=== PATIENT | female | born 1950 | race Caucasian/White ===

== ENCOUNTER 2017-02-01 18:45 | Inpatient (IN) | payer MEDICARE, BC, OTHER ==
[~2017-02-01] VITALS: Ht 154.9 cm; Wt 46.4 kg
[2017-02-01] MEDS ORDERED: LORazepam 1 MG TABLET PO ONE (19:15)
[2017-02-01 19:31] LABS: BASO # 0.1 x10^3/uL (0.0-0.2); BASO % 1 % (0-3); EOS # 0.2 x10^3/uL (0.0-0.7); EOS % 2 % (0-3); HEMATOCRIT 34.7 % (36.0-47.0); HEMOGLOBIN 11.9 g/dL (12.0-15.5); LYMPH # 2.1 x10^3/uL (1.0-4.8); LYMPH % 19 % (24-48); MEAN CORPUSCULAR HEMOGLOBIN 31 pg (25-35); MEAN CORPUSCULAR HGB CONC 34 g/dL (31-37); MEAN CORPUSCULAR VOLUME 91 fL (79-100); MONO # 0.9 x10^3/uL (0.0-1.1); MONO % 8 % (0-9); NEUT # 7.7 x10^3uL (1.8-7.7); NEUT % 70 % (31-73); PLATELET COUNT 352 x10^3/uL (140-400); RED CELL DISTRIBUTION WIDTH 14.8 % (11.5-14.5)
[2017-02-01 19:39] LABS: ALBUMIN 3.1 g/dL (3.4-5.0); ALBUMIN/GLOBULIN RATIO 1.1 (1.0-1.7); CREATININE 0.6 mg/dL (0.6-1.0); GFR 99.7; POTASSIUM 3.9 mmol/L (3.5-5.1); TOTAL BILIRUBIN 0.3 mg/dL (0.2-1.0); TOTAL PROTEIN 5.8 g/dL (6.4-8.2)
--- NOTE | 2017-02-01 19:43 | EKG ---
[address] [address] Test Date: 2017-02-01 Test Time: 19:18:43 Pat Name: VIV BALLESTEROS Department: Room: Gender: F Information Services Assistant: : 1950 Requested By: ELOISE MULLINS Order Number: [id number] Reading MD: Gpoal Renee Measurements Intervals [place] Rate: 67 P: 37 ID: [id number] QRS: -41 QRSD: 118 T: 21 QT: 434 QTc: 462 Interpretive Statements SINUS RHYTHM ABNORMAL LEFT AXIS DEVIATION LEFT ANTERIOR FASCICULAR BLOCK INCOMPLETE RIGHT BUNDLE BRANCH BLOCK QRS(T) CONTOUR ABNORMALITY CONSISTENT WITH SEPTAL INFARCT PROBABLY OLD Electronically Signed On 02-06-2017 10:32:49 CDT by Gopal Renee
[2017-02-01 19:51] LABS: BACTERIA,URINE FEW /HPF (0-FEW); BILIRUBIN,URINE NEG (NEG); CLARITY,URINE CLEAR; COLOR,URINE STRAW; GLUCOSE,URINE NEG (NEG); NITRITE,URINE NEG (NEG); SQUAMOUS EPITHELIAL CELL,UR FEW /LPF; UROBILINOGEN,URINE 0.2 mg/dL (0.2 mg/dL)
--- NOTE | 2017-02-01 20:21 | PHYS DOC ---
Past History Past Medical History: Anxiety, Bipolar, Dementia, Depression, High Cholesterol , Hypothyroid, Other Past Surgical History: Other Alcohol Use: None Drug Use: None Adult General Chief Complaint Chief Complaint: PSYCH EVALUATION HPI HPI Patient is a 66 year old F who presents for medical screening for psychiatric admission. Edwige was accompanied by her guardian. She had no concerns of pain. She denied shortness of breath, abdominal pain, nausea/vomiting, and rash. She states that she has had normal bowel movements and normal urination. Review of Systems Review of Systems Constitutional: Denies fever or chills [] Eyes: Denies change in visual acuity, redness, or eye pain [] HENT: Denies nasal congestion or sore throat [] Respiratory: Denies cough or shortness of breath [] Cardiovascular: No additional information not addressed in HPI [] GI: Denies abdominal pain, nausea, vomiting, bloody stools or diarrhea [] : Denies dysuria or hematuria [] Musculoskeletal: Denies back pain or joint pain [] Integument: Denies rash or skin lesions [] Neurologic: Denies headache, focal weakness or sensory changes [] Endocrine: Denies polyuria or polydipsia [] Family History Family History Noncontributory Current Medications Current Medications Current Medications Medications (Trade) Dose Ordered Sig/Deon Start Time Stop Time Status Last Admin Dose Admin Ceftriaxone Sodium (Rocephin Im) 1 gm 1X ONCE 02/01/17 20:30 02/01/17 20:31 Lorazepam (Ativan) 0.5 mg 1X ONCE 02/01/17 19:15 02/01/17 19:16 DC 02/01/17 19:14 0.5 MG Allergies Allergies Allergies Uncoded Allergies Type Severity Reaction Last Updated Verified TAPE Allergy Unknown 02/01/17 Physical Exam Physical Exam Constitutional: Well developed, well nourished, no acute distress, non-toxic appearance. [] HENT: Normocephalic, atraumatic, Eyes: PERRLA, EOMI, conjunctiva normal, no discharge. [] Neck: Normal range of motion, no tenderness, supple, no stridor. [] Cardiovascular:Heart rate regular rhythm, no murmur [] Lungs & Thorax: Bilateral breath sounds clear to auscultation [] Abdomen: Bowel sounds normal, soft, no tenderness, no masses, no pulsatile masses. [] Skin: Warm, dry, no erythema, no rash. [] Back: No tenderness, no CVA tenderness. [] Extremities: No tenderness, no cyanosis, no clubbing, ROM intact, no edema. [] Neurologic: normal motor function, normal sensory function, no focal deficits noted. [] Current Patient Data Vital Signs Vital Signs Date Time Temp Pulse Resp B/P (MAP) Pulse Ox O2 Delivery O2 Flow Rate FiO2 02/01/17 18:48 98.1 71 17 96 Room Air Lab Results Laboratory Tests Test 02/01/17 19:09 White Blood Count 11.0 x10^3/uL (4.0-11.0) Red Blood Count 3.80 x10^6/uL (3.50-5.40) Hemoglobin 11.9 g/dL (12.0-15.5) L Hematocrit 34.7 % (36.0-47.0) L Mean Corpuscular Volume 91 fL (79-100) Mean Corpuscular Hemoglobin 31 pg (25-35) Mean Corpuscular Hemoglobin Concent 34 g/dL (31-37) Red Cell Distribution Width 14.8 % (11.5-14.5) H Platelet Count 352 x10^3/uL (140-400) Neutrophils (%) (Auto) 70 % (31-73) Lymphocytes (%) (Auto) 19 % (24-48) L Monocytes (%) (Auto) 8 % (0-9) Eosinophils (%) (Auto) 2 % (0-3) Basophils (%) (Auto) 1 % (0-3) Neutrophils # (Auto) 7.7 x10^3uL (1.8-7.7) Lymphocytes # (Auto) 2.1 x10^3/uL (1.0-4.8) Monocytes # (Auto) 0.9 x10^3/uL (0.0-1.1) Eosinophils # (Auto) 0.2 x10^3/uL (0.0-0.7) Basophils # (Auto) 0.1 x10^3/uL (0.0-0.2) Urine Collection Type Unknown Urine Color Straw Urine Clarity Clear Urine pH 6.5 Urine Specific [place] 1.010 Urine Protein Neg (NEG-TRACE) Urine Glucose (UA) Neg mg/dL (NEG) Urine Ketones (Stick) Neg mg/dL (NEG) Urine Blood Trace (NEG) Urine Nitrite Neg (NEG) Urine Bilirubin Neg (NEG) Urine Urobilinogen Dipstick 0.2 mg/dL (0.2 mg/dL) Urine Leukocyte Esterase Trace (NEG) Urine RBC 1-2 /HPF (0-2) Urine WBC 5-10 /HPF (0-4) Urine Squamous Epithelial Cells Few /LPF Urine Bacteria Few /HPF (0-FEW) Sodium Level 137 mmol/L (136-145) Potassium Level 3.9 mmol/L (3.5-5.1) Chloride Level 104 mmol/L (98-107) Carbon Dioxide Level 28 mmol/L (21-32) Anion Gap 5 (6-14) L Blood Urea Nitrogen 13 mg/dL (7-20) Creatinine 0.6 mg/dL (0.6-1.0) Estimated GFR (Cockcroft-Gault) 99.7 BUN/Creatinine Ratio 22 (6-20) H Glucose Level 106 mg/dL (70-99) H Calcium Level 8.0 mg/dL (8.5-10.1) L Magnesium Level 2.0 mg/dL (1.8-2.4) Total Bilirubin 0.3 mg/dL (0.2-1.0) Aspartate Amino Transferase (AST) 41 U/L (15-37) H Alanine Aminotransferase (ALT) 56 U/L (14-59) Alkaline Phosphatase 106 U/L (46-116) Total Protein 5.8 g/dL (6.4-8.2) L Albumin 3.1 g/dL (3.4-5.0) L Albumin/Globulin Ratio 1.1 (1.0-1.7) EKG EKG Normal sinus rhythm, no STEMI, incomplete right bundle-branch block noted Course & Med Decision Making Course & Med Decision Making Pertinent Labs and Imaging studies reviewed. (See chart for details) The urine sample obtained was not a clean catch however given the presence of RBCs and WBCs it is possible urinary tract infection exists. She was given a single dose of IM Rocephin despite having no complaints. Dragon Disclaimer Dragon Disclaimer This chart was dictated in whole or in part using Voice Recognition software in a busy, high-work load, and often noisy Emergency Department environment. It may contain unintended and wholly unrecognized errors or omissions. Departure Departure: Impression: Primary Impression: Encounter for medical screening examination Disposition: 65 XFER TO PSYCH HOSP/UNIT Condition: STABLE Referrals: MAN ROME MD (PCP) ELOISE MULLINS MD Feb 01, 2017 20:21
[2017-02-01] MEDS ORDERED: cefTRIAXone IM 1 GM VIAL IM ONE (20:30)
[2017-02-01 21:54] VITALS: BP 127/77
[2017-02-01] MEDS ORDERED: LORA0.5T PO (23:02)
[2017-02-01] MEDS ORDERED: LEVO112T4 PO (23:02)
[2017-02-01] MEDS ORDERED: OLAN5TAB9 PO (23:02)
[2017-02-01] MEDS ORDERED: NAPR500T4 PO (23:02)
[2017-02-01] MEDS ORDERED: ATOR40TA59 PO (23:02)
[2017-02-01] MEDS ORDERED: QUET25TA5 PO (23:02)
[2017-02-01] MEDS ORDERED: SERT100T PO (23:02)
[2017-02-01] MEDS ORDERED: ALPR0.5T6 PO (23:02)
[2017-02-01] MEDS ORDERED: METHYL SALICYLATE/MENTHOL TOPICAL OINTMENT 29GM TUBE. TP PRN (23:15)
[2017-02-01] MEDS ORDERED: MAG HYDROX/AL HYDROX/SIMETH 30 ML ORAL.SUSP PO PRN (23:15)
[2017-02-02] MEDS ORDERED: OLANZapine 5 MG TABLET PO ONE (00:30)
[2017-02-02] MEDS: LORazepam 0.5 MG TABLET PO PRN ×3 (02:40→14:57)
[2017-02-02 05:51] VITALS: BP 139/72
[2017-02-02] MEDS: SERTRALINE 100 MG TABLET. PO SCH (09:12)
[2017-02-02] MEDS: QUEtiapine 25 MG TABLET. PO SCH ×2 (09:13→19:41)
[2017-02-02] MEDS: ALPRAZolam 0.5 MG TABLET PO SCH ×2 (09:13→19:43)
[2017-02-02] MEDS: NAPROXEN 500 MG TABLET PO SCH ×2 (09:15→19:40)
[2017-02-02] MEDS: LEVOTHYROXINE 112 MCG TABLET PO SCH (09:38)
[2017-02-02] MEDS: MAGNESIUM HYDROXIDE 2,400 MG/30 ML ORAL.SUSP. PO PRN (14:57)
[2017-02-02 16:06] LABS: THYROID STIM HORMONE (TSH) 1.812 uIU/mL (0.358-3.740)
[2017-02-02 16:23] VITALS: BP 110/72
[2017-02-02 19:13] LABS: T3 TOTAL 53 ng/dL (71-180); THYROXINE 6.4 ug/dL (4.5-12.0)
[2017-02-02] MEDS: ATORVASTATIN CALCIUM 20 MG TABLET PO SCH (19:43)
[2017-02-02] MEDS: MIRTAZAPINE 7.5 MG TABLET. PO SCH (19:43)
[2017-02-02] MEDS: DOCUSATE SODIUM 100 MG CAPSULE PO SCH (19:43)
[2017-02-02] MEDS: OLANZapine 5 MG TABLET PO SCH (19:43)
[2017-02-02 21:11] LABS: HEMOGLOBIN A1C 5.1 % (4.8-5.6)
--- NOTE | 2017-02-02 21:32 | PDOC ---
Exam Jeanmarie Demential Exam: Jeanmarie Note: Please also refer to the separate dictated note~for this date of service dictated separately.~Patient seen individually. Discussed the patient with Nursing staff reviewed the chart.~Reviewed interim history and current functioning. Reviewed vital signs,~Labs/ Radiology~and current medications noted below. Continue current treatment with the changes noted in the dictated addendum note Assessment: Vital Signs: Vital Signs Date Time Temp Pulse Resp B/P (MAP) Pulse Ox O2 Delivery O2 Flow Rate FiO2 02/02/17 16:23 98.6 80 16 110/72 (85) 95 02/01/17 18:48 Room Air I&O Intake and Output 02/03/17 07:00 Intake Total 720 ml Balance 720 ml Intake Oral 720 ml Current Medications: Meds: Current Medications Lorazepam (Ativan) 0.5 mg 1X ONCE PO Last administered on 02/01/17 19:14; Start 02/01/17 at 19:15; Stop 02/01/17 at 19:16; Status DC Ceftriaxone Sodium (Rocephin Im) 1 gm 1X ONCE IM Last administered on 20:45; Start 02/01/17 at 20:30; Stop 02/01/17 at 20:31; Status DC Acetaminophen (Tylenol) 650 mg PRN Q6HRS PRN PO MILD PAIN / TEMP; Start at 23:15 Multi-Ingredient Ointment (Analgesic [place]) 1 rosita PRN QID PRN TP MUSCLE PAIN; Start 02/01/17 at 23:15 Al Hydroxide/Mg Hydroxide (Mylanta Plus Xs) 15 ml PRN AFTMEALHC PRN PO DYSPEPSIA; Start 02/01/17 at 23:15 Magnesium Hydroxide (Milk Of Magnesia) 2,400 mg PRN QHS PRN PO CONSTIPATION Last administered on 02/02/17 14:57; Start 02/01/17 at 23:15 Olanzapine (ZyPREXA) 5 mg HS PO Last administered on 02/02/17 19:43; Start at 21:00 Quetiapine Fumarate (SEROquel) 25 mg BID PO Last administered on 02/02/17 19: 41; Start 02/02/17 at 09:00 Sertraline HCl (Zoloft) 100 mg DAILY PO Last administered on 02/02/17 09:12; Start 02/02/17 at 09:00 Olanzapine (ZyPREXA) 5 mg 1X ONCE PO Last administered on 02/02/17 00:27; Start 02/02/17 at 00:30; Stop 02/02/17 at 00:31; Status DC Alprazolam (Xanax) 0.5 mg BID PO Last administered on 02/02/17 19:43; Start at 09:00 Lorazepam (Ativan) 0.5 mg PRN Q4HRS PRN PO ANXIETY / AGITATION Last administered on 02/02/17 14:57; Start 02/02/17 at 00:15; Stop 02/02/17 at 15:59 ; Status DC Levothyroxine Sodium (Synthroid) 112 mcg DAILY06 PO ; Start 02/02/17 at 10:00 Naproxen (Naprosyn) 500 mg BID PO Last administered on 02/02/17 19:40; Start 02/02/17 at 09:00 Atorvastatin Calcium (Lipitor) 40 mg QHS PO Last administered on 02/02/17 19: 43; Start 02/02/17 at 21:00 Mirtazapine (Remeron) 7.5 mg QHS PO Last administered on 02/02/17 19:43; Start 02/02/17 at 21:00 Olanzapine (ZyPREXA ZYDIS) 2.5 mg PRN Q2HR PRN PO PSYCHOSIS; Start 02/02/17 at 15:45 Alprazolam (Xanax) 0.25 mg PRN Q2HR PRN PO ANXIETY / AGITATION; Start 02/02/17 at 15:45 Docusate Sodium (Colace) 100 mg BID PO Last administered on 02/02/17 19:43; Start 02/02/17 at 21:00 Polyethylene Glycol (miraLAX) 17 gm DAILY PO ; Start 02/03/17 at 09:00 Active Scripts Active Reported Atorvastatin Calcium 40 Mg Tablet 40 Mg PO QHS Naproxen 500 Mg Tablet 500 Mg PO BID Lorazepam 0.5 Mg Tablet 0.5 Mg PO PRN Q4HRS PRN Seroquel (Quetiapine Fumarate) 25 Mg Tablet 25 Mg PO BID Zoloft (Sertraline Hcl) 100 Mg Tablet 100 Mg PO DAILY Levothyroxine Sodium 112 Mcg Tablet 112 Mcg PO DAILYAC Olanzapine 5 Mg Tablet 5 Mg PO HS Alprazolam 0.5 Mg Tablet 0.5 Mg PO BID Diagnosis: Problems: (1) Anxiety disorder (2) Bipolar 1 disorder, mixed, moderate (3) Dementia in Alzheimer's disease with delusions (4) Dementia in Alzheimer's disease with depression (5) Dementia, vascular, with depression (6) Dementia, vascular, with delusions (7) Impulse control disorder ELEANOR BILLS MD Feb 02, 2017 21:32
[2017-02-03 05:44] VITALS: BP 120/67
[2017-02-03] MEDS: LEVOTHYROXINE 112 MCG TABLET PO SCH (05:56)
[2017-02-03] MEDS: NAPROXEN 500 MG TABLET PO SCH ×2 (08:02→19:51)
[2017-02-03] MEDS: SERTRALINE 100 MG TABLET. PO SCH (08:02)
[2017-02-03] MEDS: QUEtiapine 25 MG TABLET. PO SCH ×2 (08:02→19:51)
[2017-02-03] MEDS: DOCUSATE SODIUM 100 MG CAPSULE PO SCH ×2 (08:02→19:51)
[2017-02-03] MEDS: ALPRAZolam 0.5 MG TABLET PO SCH ×2 (08:14→19:52)
[2017-02-03] MEDS: POLYETHYLENE GLYCOL 3350 17 GM PACKET. PO SCH (08:14)
--- NOTE | 2017-02-03 10:19 | CONS ---
DATE OF CONSULTATION: REASON FOR CONSULTATION: Medical management. HISTORY OF PRESENT ILLNESS: The patient is a 66-year-old female patient, resident at [facility], on account of increased yelling, screaming, paranoid about being alone, increased agitation, crying, depressed and is severely anxious, all this in the background of dementia with behavioral disorder. She was admitted to this unit for inpatient psychiatric stabilization. On questioning her, the only complaint she offered was that she is constipated. PAST MEDICAL HISTORY: Significant for hyperlipidemia, hypothyroidism, malnutrition, weakness. PAST PSYCHIATRIC HISTORY: Significant for dementia, bipolar, mixed; anxiety and depression disorder. PAST SURGICAL HISTORY: Significant for bilateral cataract extraction, tonsillectomy, appendectomy and left total knee arthroplasty. ALLERGIES: She is allergic to ADHESIVE TAPE. MEDICATIONS: She is currently on the following medication: Alprazolam 0.5 mg p.o. b.i.d., atorvastatin calcium 40 mg at bedtime, levothyroxine sodium 112 mcg once a day, lorazepam 0.5 mg every 4 hours as needed, naproxen 500 mg twice a day, olanzapine 5 mg at bedtime, Seroquel 25 mg p.o. b.i.d. and sertraline for Zoloft 100 mg p.o. daily. FAMILY HISTORY: Unremarkable. SOCIAL HISTORY: She is , resides at the [facility]. She has 1 daughter. She used to be a smoker. She quit more than 10 years ago. She used to work for insurance. PHYSICAL EXAMINATION: GENERAL: On examining her, she was resting slightly propped up in bed, in no apparent respiratory distress. She was slightly pale, but no jaundice, cyanosis, ____ thyromegaly. No jugular venous distention. No limb edema. VITAL SIGNS: Her heart rate was 74, blood pressure was 139/72, temperature was 97.8, respiratory rate 22, and oxygen saturation was 94%. HEENT: Showed normocephalic, atraumatic. NECK: Supple. HEART: Showed normal first and second heart sounds with no gallop, rub or murmur. CHEST: Clear to auscultation. No crepitation or rhonchi. ABDOMEN: Distended, soft, nontender. No guarding or rigidity. No organomegaly. Hernial orifices intact. Bowel sounds normal. NEUROLOGIC: She is awake, alert, oriented to self. All her cranial nerves intact. EXTREMITIES: She moves extremities without difficulty, although she is mostly bed bound and chair bound. She managed to transfer from chair to bed and vice versa. LABORATORY DATA: Showed a white cell count of 11,000, hemoglobin 11.9, hematocrit 34.7, MCV 91, and platelet count 352,000 with normal manual differential. Her chemistry showed a serum sodium of 137, potassium 3.9, chloride 104, bicarbonate 28, anion gap of 5, BUN 13, creatinine 0.6, estimated GFR was 99 mL per minute. Her glucose was 106, calcium was 8, magnesium 2. Total bilirubin, AST, ALT, alkaline phosphatase were normal. Total protein was 5.8, albumin 3.1. Her urinalysis showed the urine was clear, straw-colored with a pH of 6.5, specific gravity of 1.010. The urine was negative for protein, glucose, ketones, trace of blood, negative for nitrite and trace of leukocyte esterase, with 1-2 rbc's, 5-10 wbc's, very few bacteria. IMPRESSION: In summary, this is a 66-year-old female patient who was admitted on account of increased yelling, screaming, paranoid about being alone. She has also increased agitation, crying, depressed and severely anxious, all this in a background of dementia with behavioral disorder. She has medical problems consists of hyperlipidemia, hypothyroidism and malnutrition. Her serum albumin is only 3.1 gram/dL. She has also mild normochromic normocytic anemia. PLAN: My plan is to continue with all her medication. I will review all the labs that are still pending at the time of this dictation and make any necessary recommendation. Thank you, Dr. Hernandez, for allowing me to participate in the care of this patient. TATIANNA COLE MD DR: JUVE/meli JOB#: [id number] / [id number]
[2017-02-03] MEDS: ALPRAZolam 0.25 MG TABLET PO PRN (15:41)
--- NOTE | 2017-02-03 15:45 | HP ---
ADMIT DATE: 02/02/2017 This is late entry, date of service 02/02, covers elements not covered in my initial note of 02/02. The patient was seen individually evening of 02/02 for this evaluation. I had previously discussed with nursing staff on several occasions prior to the patient's admission to gather clinical information from the snf, make a decision on inpatient hospitalization. I had also been called earlier in the day on 02/02 by nursing staff. The patient was loud, disruptive, psychotic, extremely unmanageable, dangerous in her behaviors on the unit and we had added Zyprexa p.r.n. The patient was on scheduled Xanax and p.r.n. Ativan was changed to Xanax as well. IDENTIFYING DATA: The patient is a 66-year-old female referred to us from [facility] and [facility] by Dr. Neville, her primary care physician at [facility] and [facility], on account of worsening yelling, screaming, being paranoid about being alone, increasing agitation, crying spells, appearing depressed severely anxious, extremely confused within the context of her major neurocognitive disorder, Alzheimer vascular with delusions and history of bipolar disorder mixed The patient has failed outpatient psychiatric interventions, behavior is deemed dangerous, unmanageable, out of control. Referred for inpatient psychiatric stabilization. CHIEF COMPLAINT: "I don't know anything. I need to get out of here." Shortly after this, the patient was yelling, screaming loud, disruptive, paranoid, psychotic on the unit, extremely unmanageable. HISTORY OF PRESENT ILLNESS: The patient has a history of worsening confusion, memory deficits and a past history of bipolar disorder. She states she used to see a psychiatrist in the past for bipolar disorder, but does not remember the name of the psychiatrist. Symptoms are worsened for about 2 weeks. She has had sleep and appetite changes. No active suicidal or homicidal ideation. PAST PSYCHIATRIC HISTORY: As above. PAST MEDICAL HISTORY: Positive for a UTI, treated on Rocephin in the ER. Currently being treated per Dr. Merino. She does have a history of malnutrition, hypothyroidism, hyperlipidemia, muscle weakness, left knee surgery, , polyosteoarthritis. Accu-Cheks, none. DIET: Regular, soft. She is compliant with whole medications. CODE STATUS: Full code. ALLERGIES: TAPE. FAMILY HISTORY: Noncontributory. SOCIAL HISTORY: The patient resides at the above snf. No history of alcohol or drug abuse, physical, sexual or elder abuse history is noted. She is not known to be a perpetrator. CURRENT PSYCHOTROPICS: Xanax 0.5 mg b.i.d. and she was on Ativan p.r.n. and that is being changed to Xanax p.r.n. to avoid duplication of benzodiazepines. She is on Zyprexa 5 mg at bedtime, Zoloft 100 mg a day, Seroquel 25 b.i.d. Again a duplication of atypical, which we will have to contend with and simplify during this hospitalization. The patient is on Remeron 7.5 at bedtime, Zyprexa Zydis p.r.n. REACTION TO HOSPITALIZATION: The patient oblivious of this ASSETS: The patient is supportive, living at the above facility. MENTAL STATUS EXAMINATION: The patient was seen individually evening of 02/02. She is yelling, screaming loud, paranoid, psychotic in a wheelchair. Insight, judgment, recent and remote memory, attention, concentration, fund of knowledge poor, consistent with her diagnosis. The patient is quite psychotic. Slept just 3 hours previous evening. LABORATORY DATA: Reviewed. IMPRESSION: Major neurocognitive disorder; Alzheimer, vascular with depression, delusion, behavioral disturbance; anxiety disorder, unspecified; impulse control disorder, unspecified; bipolar 1 disorder, mixed with psychotic features; current urinary tract infection. Rest diagnosis as noted above. PLAN: Admit to the geropsychiatry unit at [facility]. I will see the patient daily individually from a psychiatric standpoint. Medical followup per Dr. Du/Dr. Merino. Continue current medications with the changes noted above. We will observe baseline, adjust further as clinically indicated. If paranoia, mood lability, agitation, aggression persist despite resolution of UTI, we may add Depakote as a mood stabilizer. MAN Aden BILLS MD DR: JAIME/meli JOB#: [id number] / [id number]
[2017-02-03 16:34] VITALS: BP 115/61
[2017-02-03] MEDS: MIRTAZAPINE 7.5 MG TABLET. PO SCH (19:51)
[2017-02-03] MEDS: OLANZapine 5 MG TABLET PO SCH (19:51)
[2017-02-03] MEDS: ATORVASTATIN CALCIUM 20 MG TABLET PO SCH (19:51)
--- NOTE | 2017-02-03 20:24 | PDOC ---
Exam Jeanmarie Demential Exam: Jeanmarie Note: Please also refer to the separate dictated note~for this date of service dictated separately.~Patient seen individually. Discussed the patient with Nursing staff reviewed the chart.~Reviewed interim history and current functioning. Reviewed vital signs,~Labs/ Radiology~and current medications noted below. Continue current treatment with the changes noted in the dictated addendum note Assessment: Vital Signs: Vital Signs Date Time Temp Pulse Resp B/P (MAP) Pulse Ox O2 Delivery O2 Flow Rate FiO2 02/03/17 16:34 97.5 80 18 115/61 (79) 95 Room Air I&O Intake and Output 02/04/17 07:00 Intake Total 1260 ml Balance 1260 ml Intake Oral 1260 ml # Voids 1 # Bowel Movements 2 Current Medications: Meds: Current Medications Lorazepam (Ativan) 0.5 mg 1X ONCE PO Last administered on 02/01/17 19:14; Start 02/01/17 at 19:15; Stop 02/01/17 at 19:16; Status DC Ceftriaxone Sodium (Rocephin Im) 1 gm 1X ONCE IM Last administered on 20:45; Start 02/01/17 at 20:30; Stop 02/01/17 at 20:31; Status DC Acetaminophen (Tylenol) 650 mg PRN Q6HRS PRN PO MILD PAIN / TEMP; Start at 23:15 Multi-Ingredient Ointment (Analgesic [place]) 1 rosita PRN QID PRN TP MUSCLE PAIN; Start 02/01/17 at 23:15 Al Hydroxide/Mg Hydroxide (Mylanta Plus Xs) 15 ml PRN AFTMEALHC PRN PO DYSPEPSIA; Start 02/01/17 at 23:15 Magnesium Hydroxide (Milk Of Magnesia) 2,400 mg PRN QHS PRN PO CONSTIPATION Last administered on 02/02/17 14:57; Start 02/01/17 at 23:15 Olanzapine (ZyPREXA) 5 mg HS PO Last administered on 02/03/17 19:51; Start at 21:00 Quetiapine Fumarate (SEROquel) 25 mg BID PO Last administered on 02/03/17 19: 51; Start 02/02/17 at 09:00 Sertraline HCl (Zoloft) 100 mg DAILY PO Last administered on 02/03/17 08:02; Start 02/02/17 at 09:00 Olanzapine (ZyPREXA) 5 mg 1X ONCE PO Last administered on 02/02/17 00:27; Start 02/02/17 at 00:30; Stop 02/02/17 at 00:31; Status DC Alprazolam (Xanax) 0.5 mg BID PO Last administered on 02/03/17 19:52; Start at 09:00 Lorazepam (Ativan) 0.5 mg PRN Q4HRS PRN PO ANXIETY / AGITATION Last administered on 02/02/17 14:57; Start 02/02/17 at 00:15; Stop 02/02/17 at 15:59 ; Status DC Levothyroxine Sodium (Synthroid) 112 mcg DAILY06 PO Last administered on 05:56; Start 02/02/17 at 10:00 Naproxen (Naprosyn) 500 mg BID PO Last administered on 02/03/17 19:51; Start 02/02/17 at 09:00 Atorvastatin Calcium (Lipitor) 40 mg QHS PO Last administered on 02/03/17 19: 51; Start 02/02/17 at 21:00 Mirtazapine (Remeron) 7.5 mg QHS PO Last administered on 02/03/17 19:51; Start 02/02/17 at 21:00 Olanzapine (ZyPREXA ZYDIS) 2.5 mg PRN Q2HR PRN PO PSYCHOSIS Last administered on 02/03/17 15:41; Start 02/02/17 at 15:45 Alprazolam (Xanax) 0.25 mg PRN Q2HR PRN PO ANXIETY / AGITATION Last administered on 02/03/17 15:41; Start 02/02/17 at 15:45 Docusate Sodium (Colace) 100 mg BID PO Last administered on 02/03/17 19:51; Start 02/02/17 at 21:00 Polyethylene Glycol (miraLAX) 17 gm DAILY PO Last administered on 02/03/17 08: 14; Start 02/03/17 at 09:00 Vitamin D (Vitamin D3) 50,000 unit WEEKLY PO ; Start 02/10/17 at 09:00 Divalproex Sodium (Depakote Sprinkles) 125 mg TID@0900,1300,1700 PO ; Start at 09:00 Active Scripts Active Reported Atorvastatin Calcium 40 Mg Tablet 40 Mg PO QHS Naproxen 500 Mg Tablet 500 Mg PO BID Lorazepam 0.5 Mg Tablet 0.5 Mg PO PRN Q4HRS PRN Seroquel (Quetiapine Fumarate) 25 Mg Tablet 25 Mg PO BID Zoloft (Sertraline Hcl) 100 Mg Tablet 100 Mg PO DAILY Levothyroxine Sodium 112 Mcg Tablet 112 Mcg PO DAILYAC Olanzapine 5 Mg Tablet 5 Mg PO HS Alprazolam 0.5 Mg Tablet 0.5 Mg PO BID Diagnosis: Problems: (1) Anxiety disorder (2) Bipolar 1 disorder, mixed, moderate (3) Dementia in Alzheimer's disease with delusions (4) Dementia, vascular, with delusions (5) Dementia, vascular, with depression (6) Dementia in Alzheimer's disease with depression (7) Impulse control disorder ELEANOR BILLS MD Feb 03, 2017 20:24
[2017-02-04 06:08] VITALS: BP 105/64
[2017-02-04] MEDS: LEVOTHYROXINE 112 MCG TABLET PO SCH (06:24)
[2017-02-04] MEDS: POLYETHYLENE GLYCOL 3350 17 GM PACKET. PO SCH (08:03)
[2017-02-04] MEDS: NAPROXEN 500 MG TABLET PO SCH ×2 (08:03→19:53)
[2017-02-04] MEDS: QUEtiapine 25 MG TABLET. PO SCH ×2 (08:04→19:54)
[2017-02-04] MEDS: SERTRALINE 100 MG TABLET. PO SCH (08:04)
[2017-02-04] MEDS: ALPRAZolam 0.5 MG TABLET PO SCH ×2 (08:04→19:54)
[2017-02-04] MEDS: DOCUSATE SODIUM 100 MG CAPSULE PO SCH ×2 (08:04→19:54)
[2017-02-04] MEDS: DIVALPROEX 125 MG CAP.SPRINK PO SCH ×3 (08:06→16:20)
[2017-02-04 15:44] VITALS: BP 145/71
[2017-02-04] MEDS: MIRTAZAPINE 7.5 MG TABLET. PO SCH (19:54)
[2017-02-04] MEDS: OLANZapine 5 MG TABLET PO SCH (19:54)
[2017-02-04] MEDS: ATORVASTATIN CALCIUM 20 MG TABLET PO SCH (19:54)
--- NOTE | 2017-02-04 23:00 | PDOC ---
Exam Jeanmarie Demential Exam: Jeanmarie Note: Please also refer to the separate dictated note~for this date of service dictated separately.~Patient seen individually. Discussed the patient with Nursing staff reviewed the chart.~Reviewed interim history and current functioning. Reviewed vital signs,~Labs/ Radiology~and current medications noted below. Continue current treatment with the changes noted in the dictated addendum note Assessment: Vital Signs: Vital Signs Date Time Temp Pulse Resp B/P (MAP) Pulse Ox O2 Delivery O2 Flow Rate FiO2 02/04/17 15:44 99.2 85 18 145/71 (95) 94 02/03/17 16:34 Room Air I&O Intake and Output 02/05/17 07:00 Intake Total 960 ml Balance 960 ml Intake Oral 960 ml # Bowel Movements 1 Current Medications: Meds: Current Medications Lorazepam (Ativan) 0.5 mg 1X ONCE PO Last administered on 02/01/17 19:14; Start 02/01/17 at 19:15; Stop 02/01/17 at 19:16; Status DC Ceftriaxone Sodium (Rocephin Im) 1 gm 1X ONCE IM Last administered on 20:45; Start 02/01/17 at 20:30; Stop 02/01/17 at 20:31; Status DC Acetaminophen (Tylenol) 650 mg PRN Q6HRS PRN PO MILD PAIN / TEMP; Start at 23:15 Multi-Ingredient Ointment (Analgesic [place]) 1 rosita PRN QID PRN TP MUSCLE PAIN; Start 02/01/17 at 23:15 Al Hydroxide/Mg Hydroxide (Mylanta Plus Xs) 15 ml PRN AFTMEALHC PRN PO DYSPEPSIA; Start 02/01/17 at 23:15 Magnesium Hydroxide (Milk Of Magnesia) 2,400 mg PRN QHS PRN PO CONSTIPATION Last administered on 02/02/17 14:57; Start 02/01/17 at 23:15 Olanzapine (ZyPREXA) 5 mg HS PO Last administered on 02/04/17 19:54; Start at 21:00 Quetiapine Fumarate (SEROquel) 25 mg BID PO Last administered on 02/04/17 19: 54; Start 02/02/17 at 09:00 Sertraline HCl (Zoloft) 100 mg DAILY PO Last administered on 02/04/17 08:04; Start 02/02/17 at 09:00 Olanzapine (ZyPREXA) 5 mg 1X ONCE PO Last administered on 02/02/17 00:27; Start 02/02/17 at 00:30; Stop 02/02/17 at 00:31; Status DC Alprazolam (Xanax) 0.5 mg BID PO Last administered on 02/04/17 19:54; Start at 09:00 Lorazepam (Ativan) 0.5 mg PRN Q4HRS PRN PO ANXIETY / AGITATION Last administered on 02/02/17 14:57; Start 02/02/17 at 00:15; Stop 02/02/17 at 15:59 ; Status DC Levothyroxine Sodium (Synthroid) 112 mcg DAILY06 PO Last administered on 06:24; Start 02/02/17 at 10:00 Naproxen (Naprosyn) 500 mg BID PO Last administered on 02/04/17 19:53; Start 02/02/17 at 09:00 Atorvastatin Calcium (Lipitor) 40 mg QHS PO Last administered on 02/04/17 19: 54; Start 02/02/17 at 21:00 Mirtazapine (Remeron) 7.5 mg QHS PO Last administered on 02/04/17 19:54; Start 02/02/17 at 21:00 Olanzapine (ZyPREXA ZYDIS) 2.5 mg PRN Q2HR PRN PO PSYCHOSIS Last administered on 02/03/17 15:41; Start 02/02/17 at 15:45 Alprazolam (Xanax) 0.25 mg PRN Q2HR PRN PO ANXIETY / AGITATION Last administered on 02/03/17 15:41; Start 02/02/17 at 15:45 Docusate Sodium (Colace) 100 mg BID PO Last administered on 02/04/17 19:54; Start 02/02/17 at 21:00 Polyethylene Glycol (miraLAX) 17 gm DAILY PO Last administered on 02/04/17 08: 03; Start 02/03/17 at 09:00 Vitamin D (Vitamin D3) 50,000 unit WEEKLY PO ; Start 02/10/17 at 09:00 Divalproex Sodium (Depakote Sprinkles) 125 mg TID@0900,1300,1700 PO Last administered on 02/04/17t 16:20; Start 02/04/17 at 09:00 Active Scripts Active Reported Atorvastatin Calcium 40 Mg Tablet 40 Mg PO QHS Naproxen 500 Mg Tablet 500 Mg PO BID Lorazepam 0.5 Mg Tablet 0.5 Mg PO PRN Q4HRS PRN Seroquel (Quetiapine Fumarate) 25 Mg Tablet 25 Mg PO BID Zoloft (Sertraline Hcl) 100 Mg Tablet 100 Mg PO DAILY Levothyroxine Sodium 112 Mcg Tablet 112 Mcg PO DAILYAC Olanzapine 5 Mg Tablet 5 Mg PO HS Alprazolam 0.5 Mg Tablet 0.5 Mg PO BID Diagnosis: Problems: (1) Impulse control disorder (2) Dementia, vascular, with delusions (3) Dementia, vascular, with depression (4) Dementia in Alzheimer's disease with depression (5) Dementia in Alzheimer's disease with delusions (6) Bipolar 1 disorder, mixed, moderate (7) Anxiety disorder ELEANOR BILLS MD Feb 04, 2017 23:00
[2017-02-05] MEDS: LEVOTHYROXINE 112 MCG TABLET PO SCH (05:47)
[2017-02-05 05:56] VITALS: BP 143/83
--- NOTE | 2017-02-05 06:20 | PN ---
DATE: 02/03/2017 This late entry 02/03/2017 covers elements not covered in my initial note of 02/03/2017. SUBJECTIVE: I met with the patient in the evening of 02/03/2017. The patient slept 7-1/4 hours previous evening. She has had a very difficult day, yelling, screaming loud, disruptive, agitated with marked mood lability. She has received Zyprexa and Xanax. Staff had called me earlier in the day of 02/03/2017. We have adjusted interventions to compensate for this. REVIEW OF SYSTEMS: Ambulation impaired, in wheelchair. No CV, , pulmonary, eye, ENT system symptoms on review. Reliability poor. MENTAL STATUS EXAM: Oriented to herself. Insight, judgment, recent and remote memory, attention, concentration, fund of knowledge poor, consistent with her diagnosis mentioned in my initial note. PLAN: Start Depakote Sprinkles 125 mg 3 times a day. Check CBC, CMP, valproic acid level in 3 days for her mood lability consistent with bipolar disorder in the context of her dementia. I have reviewed the rest of her psychotropics mentioned in my initial note, reviewed drug interactions. Risk/benefit ratio favors no further change for now. ELEANOR BILLS MD DR: JAIME/meli JOB#: [id number] / [id number]
[2017-02-05] MEDS: DOCUSATE SODIUM 100 MG CAPSULE PO SCH ×2 (07:31→19:21)
[2017-02-05] MEDS: POLYETHYLENE GLYCOL 3350 17 GM PACKET. PO SCH (07:31)
[2017-02-05] MEDS: SERTRALINE 100 MG TABLET. PO SCH (07:32)
[2017-02-05] MEDS: NAPROXEN 500 MG TABLET PO SCH ×2 (07:32→19:21)
[2017-02-05] MEDS: QUEtiapine 25 MG TABLET. PO SCH ×2 (07:32→19:21)
[2017-02-05] MEDS: ALPRAZolam 0.5 MG TABLET PO SCH ×2 (07:33→19:21)
[2017-02-05] MEDS: DIVALPROEX 125 MG CAP.SPRINK PO SCH ×3 (07:33→17:26)
[2017-02-05 16:04] VITALS: BP 121/72
[2017-02-05] MEDS: OLANZapine 5 MG TABLET PO SCH (19:21)
[2017-02-05] MEDS: ATORVASTATIN CALCIUM 20 MG TABLET PO SCH (19:21)
[2017-02-05] MEDS: MIRTAZAPINE 7.5 MG TABLET. PO SCH (19:21)
--- NOTE | 2017-02-05 19:56 | PDOC ---
Exam Jeanmarie Demential Exam: Jeanmarie Note: Please also refer to the separate dictated note~for this date of service dictated separately.~Patient seen individually. Discussed the patient with Nursing staff reviewed the chart.~Reviewed interim history and current functioning. Reviewed vital signs,~Labs/ Radiology~and current medications noted below. Continue current treatment with the changes noted in the dictated addendum note Assessment: Vital Signs: Vital Signs Date Time Temp Pulse Resp B/P (MAP) Pulse Ox O2 Delivery O2 Flow Rate FiO2 02/05/17 16:04 98.0 80 20 121/72 (88) 98 02/03/17 16:34 Room Air I&O Intake and Output 02/06/17 07:00 Intake Total 1020 ml Balance 1020 ml Intake Oral 1020 ml Current Medications: Meds: Current Medications Lorazepam (Ativan) 0.5 mg 1X ONCE PO Last administered on 02/01/17 19:14; Start 02/01/17 at 19:15; Stop 02/01/17 at 19:16; Status DC Ceftriaxone Sodium (Rocephin Im) 1 gm 1X ONCE IM Last administered on 20:45; Start 02/01/17 at 20:30; Stop 02/01/17 at 20:31; Status DC Acetaminophen (Tylenol) 650 mg PRN Q6HRS PRN PO MILD PAIN / TEMP; Start at 23:15 Multi-Ingredient Ointment (Analgesic [place]) 1 rosita PRN QID PRN TP MUSCLE PAIN; Start 02/01/17 at 23:15 Al Hydroxide/Mg Hydroxide (Mylanta Plus Xs) 15 ml PRN AFTMEALHC PRN PO DYSPEPSIA; Start 02/01/17 at 23:15 Magnesium Hydroxide (Milk Of Magnesia) 2,400 mg PRN QHS PRN PO CONSTIPATION Last administered on 02/02/17 14:57; Start 02/01/17 at 23:15 Olanzapine (ZyPREXA) 5 mg HS PO Last administered on 02/05/17 19:21; Start at 21:00 Quetiapine Fumarate (SEROquel) 25 mg BID PO Last administered on 02/05/17 19: 21; Start 02/02/17 at 09:00 Sertraline HCl (Zoloft) 100 mg DAILY PO Last administered on 02/05/17 07:32; Start 02/02/17 at 09:00 Olanzapine (ZyPREXA) 5 mg 1X ONCE PO Last administered on 02/02/17 00:27; Start 02/02/17 at 00:30; Stop 02/02/17 at 00:31; Status DC Alprazolam (Xanax) 0.5 mg BID PO Last administered on 02/05/17 19:21; Start at 09:00 Lorazepam (Ativan) 0.5 mg PRN Q4HRS PRN PO ANXIETY / AGITATION Last administered on 02/02/17 14:57; Start 02/02/17 at 00:15; Stop 02/02/17 at 15:59 ; Status DC Levothyroxine Sodium (Synthroid) 112 mcg DAILY06 PO Last administered on 05:47; Start 02/02/17 at 10:00 Naproxen (Naprosyn) 500 mg BID PO Last administered on 02/05/17 19:21; Start 02/02/17 at 09:00 Atorvastatin Calcium (Lipitor) 40 mg QHS PO Last administered on 02/05/17 19: 21; Start 02/02/17 at 21:00 Mirtazapine (Remeron) 7.5 mg QHS PO Last administered on 02/05/17 19:21; Start 02/02/17 at 21:00 Olanzapine (ZyPREXA ZYDIS) 2.5 mg PRN Q2HR PRN PO PSYCHOSIS Last administered on 02/05/17 15:30; Start 02/02/17 at 15:45 Alprazolam (Xanax) 0.25 mg PRN Q2HR PRN PO ANXIETY / AGITATION Last administered on 02/03/17 15:41; Start 02/02/17 at 15:45 Docusate Sodium (Colace) 100 mg BID PO Last administered on 02/05/17 19:21; Start 02/02/17 at 21:00 Polyethylene Glycol (miraLAX) 17 gm DAILY PO Last administered on 02/05/17 07: 31; Start 02/03/17 at 09:00 Vitamin D (Vitamin D3) 50,000 unit WEEKLY PO ; Start 02/10/17 at 09:00 Divalproex Sodium (Depakote Sprinkles) 125 mg TID@0900,1300,1700 PO Last administered on 02/05/17t 17:26; Start 02/04/17 at 09:00 Active Scripts Active Reported Atorvastatin Calcium 40 Mg Tablet 40 Mg PO QHS Naproxen 500 Mg Tablet 500 Mg PO BID Lorazepam 0.5 Mg Tablet 0.5 Mg PO PRN Q4HRS PRN Seroquel (Quetiapine Fumarate) 25 Mg Tablet 25 Mg PO BID Zoloft (Sertraline Hcl) 100 Mg Tablet 100 Mg PO DAILY Levothyroxine Sodium 112 Mcg Tablet 112 Mcg PO DAILYAC Olanzapine 5 Mg Tablet 5 Mg PO HS Alprazolam 0.5 Mg Tablet 0.5 Mg PO BID Diagnosis: Problems: (1) Anxiety disorder (2) Bipolar 1 disorder, mixed, moderate (3) Dementia in Alzheimer's disease with delusions (4) Dementia in Alzheimer's disease with depression (5) Dementia, vascular, with depression (6) Dementia, vascular, with delusions (7) Impulse control disorder ELEANOR BILLS MD Feb 05, 2017 19:56
--- NOTE | 2017-02-06 01:17 | PN ---
DATE: 02/04/2017 This late entry for 02/04/2017 covers elements not covered in my initial note of 02/04/2017. SUBJECTIVE: I met with the patient in the evening of 02/04/2017. The patient continues to have episodes of yelling, screaming, appears helpless, anxious, confused, but will stop yelling if she is asked to stop yelling. REVIEW OF SYSTEMS: Ambulation impaired, in wheelchair. No CV, , pulmonary, eye, ENT system symptoms on review. Reliability poor. MENTAL STATUS EXAM: Oriented to herself. Insight, judgment, recent and remote memory, attention, concentration, fund of knowledge poor, consistent with her diagnosis mentioned in my initial note. LABORATORY DATA: Reviewed Depakote. Next level awaited in 3 days. PLAN: Continue current psychotropics, mentioned in my initial note, reviewed drug interactions. Risk/benefit ratio favors no further change. Await valproic acid level, adjust with therapeutic level. ELEANOR BILLS MD DR: JAIME/meli JOB#: [id number] / [id number]
[2017-02-06] MEDS: LEVOTHYROXINE 112 MCG TABLET PO SCH (05:16)
[2017-02-06 06:19] VITALS: BP 148/78
[2017-02-06] MEDS: DIVALPROEX 125 MG CAP.SPRINK PO SCH ×3 (08:01→16:46)
[2017-02-06] MEDS: QUEtiapine 25 MG TABLET. PO SCH ×2 (08:01→19:39)
[2017-02-06] MEDS: NAPROXEN 500 MG TABLET PO SCH ×2 (08:01→19:39)
[2017-02-06] MEDS: SERTRALINE 100 MG TABLET. PO SCH (08:01)
[2017-02-06] MEDS: DOCUSATE SODIUM 100 MG CAPSULE PO SCH ×2 (08:01→19:39)
[2017-02-06] MEDS: ALPRAZolam 0.5 MG TABLET PO SCH ×2 (08:01→19:40)
[2017-02-06] MEDS: POLYETHYLENE GLYCOL 3350 17 GM PACKET. PO SCH (08:02)
[2017-02-06 08:12] LABS: BASO # 0.1 x10^3/uL (0.0-0.2); BASO % 1 % (0-3); EOS # 0.2 x10^3/uL (0.0-0.7); EOS % 3 % (0-3); HEMOGLOBIN 13.4 g/dL (12.0-15.5); LYMPH # 1.3 x10^3/uL (1.0-4.8); LYMPH % 15 % (24-48); MEAN CORPUSCULAR HEMOGLOBIN 31 pg (25-35); MEAN CORPUSCULAR HGB CONC 34 g/dL (31-37); MEAN CORPUSCULAR VOLUME 91 fL (79-100); MONO # 0.5 x10^3/uL (0.0-1.1); MONO % 5 % (0-9); NEUT # 6.6 x10^3uL (1.8-7.7); NEUT % 76 % (31-73); PLATELET COUNT 367 x10^3/uL (140-400); RED BLOOD COUNT 4.39 x10^6/uL (3.50-5.40); RED CELL DISTRIBUTION WIDTH 14.9 % (11.5-14.5); WHITE BLOOD COUNT 8.6 x10^3/uL (4.0-11.0)
[2017-02-06 08:40] LABS: ALBUMIN 3.5 g/dL (3.4-5.0); ALBUMIN/GLOBULIN RATIO 1.2 (1.0-1.7); ALK PHOS 105 U/L (46-116); ALT (SGPT) 50 U/L (14-59); ANION GAP 6 (6-14); AST (SGOT) 20 U/L (15-37); BLOOD UREA NITROGEN 17 mg/dL (7-20); BUN/CREATININE RATIO 28 (6-20); CALCIUM 8.5 mg/dL (8.5-10.1); CARBON DIOXIDE 31 mmol/L (21-32); CHLORIDE 107 mmol/L (98-107); CREATININE 0.6 mg/dL (0.6-1.0); GFR 99.7; GLUCOSE 104 mg/dL (70-99); MAGNESIUM 2.2 mg/dL (1.8-2.4); POTASSIUM 4.2 mmol/L (3.5-5.1); SODIUM 144 mmol/L (136-145); TOTAL BILIRUBIN 0.3 mg/dL (0.2-1.0); TOTAL PROTEIN 6.4 g/dL (6.4-8.2)
[2017-02-06 08:42] LABS: VAL ACID 24 mcg/mL (50-100)
[2017-02-06] MEDS: ACETAMINOPHEN 325 MG TABLET PO PRN (15:27)
[2017-02-06] MEDS: ALPRAZolam 0.25 MG TABLET PO PRN (15:47)
[2017-02-06 16:19] VITALS: BP 157/74
[2017-02-06] MEDS: OLANZapine 5 MG TABLET PO SCH (19:38)
[2017-02-06] MEDS: MIRTAZAPINE 7.5 MG TABLET. PO SCH (19:39)
[2017-02-06] MEDS: ATORVASTATIN CALCIUM 20 MG TABLET PO SCH (19:39)
--- NOTE | 2017-02-06 19:52 | PDOC ---
Exam Jeanmarie Demential Exam: Jeanmarie Note: Please also refer to the separate dictated note~for this date of service dictated separately.~Patient seen individually. Discussed the patient with Nursing staff reviewed the chart.~Reviewed interim history and current functioning. Reviewed vital signs,~Labs/ Radiology~and current medications noted below. Continue current treatment with the changes noted in the dictated addendum note Assessment: Vital Signs: Vital Signs Date Time Temp Pulse Resp B/P (MAP) Pulse Ox O2 Delivery O2 Flow Rate FiO2 02/06/17 16:19 98.0 88 20 157/74 (101) 91 02/03/17 16:34 Room Air I&O Intake and Output 02/07/17 07:00 Intake Total 960 ml Balance 960 ml Intake Oral 960 ml # Bowel Movements 2 Labs: Laboratory Tests Test 02/06/17 07:50 White Blood Count 8.6 x10^3/uL (4.0-11.0) Red Blood Count 4.39 x10^6/uL (3.50-5.40) Hemoglobin 13.4 g/dL (12.0-15.5) Hematocrit 40.0 % (36.0-47.0) Mean Corpuscular Volume 91 fL (79-100) Mean Corpuscular Hemoglobin 31 pg (25-35) Mean Corpuscular Hemoglobin Concent 34 g/dL (31-37) Red Cell Distribution Width 14.9 % (11.5-14.5) H Platelet Count 367 x10^3/uL (140-400) Neutrophils (%) (Auto) 76 % (31-73) H Lymphocytes (%) (Auto) 15 % (24-48) L Monocytes (%) (Auto) 5 % (0-9) Eosinophils (%) (Auto) 3 % (0-3) Basophils (%) (Auto) 1 % (0-3) Neutrophils # (Auto) 6.6 x10^3uL (1.8-7.7) Lymphocytes # (Auto) 1.3 x10^3/uL (1.0-4.8) Monocytes # (Auto) 0.5 x10^3/uL (0.0-1.1) Eosinophils # (Auto) 0.2 x10^3/uL (0.0-0.7) Basophils # (Auto) 0.1 x10^3/uL (0.0-0.2) Sodium Level 144 mmol/L (136-145) Potassium Level 4.2 mmol/L (3.5-5.1) Chloride Level 107 mmol/L (98-107) Carbon Dioxide Level 31 mmol/L (21-32) Anion Gap 6 (6-14) Blood Urea Nitrogen 17 mg/dL (7-20) Creatinine 0.6 mg/dL (0.6-1.0) Estimated GFR (Cockcroft-Gault) 99.7 BUN/Creatinine Ratio 28 (6-20) H Glucose Level 104 mg/dL (70-99) H Calcium Level 8.5 mg/dL (8.5-10.1) Magnesium Level 2.2 mg/dL (1.8-2.4) Total Bilirubin 0.3 mg/dL (0.2-1.0) Aspartate Amino Transferase (AST) 20 U/L (15-37) Alanine Aminotransferase (ALT) 50 U/L (14-59) Alkaline Phosphatase 105 U/L (46-116) Total Protein 6.4 g/dL (6.4-8.2) Albumin 3.5 g/dL (3.4-5.0) Albumin/Globulin Ratio 1.2 (1.0-1.7) Valproic Acid Level 24 mcg/mL (50-100) L Valproic Acid Last Dose Date 02/05/17 Valproic Acid Last Dose Time 1700 Current Medications: Meds: Current Medications Lorazepam (Ativan) 0.5 mg 1X ONCE PO Last administered on 02/01/17 19:14; Start 02/01/17 at 19:15; Stop 02/01/17 at 19:16; Status DC Ceftriaxone Sodium (Rocephin Im) 1 gm 1X ONCE IM Last administered on 20:45; Start 02/01/17 at 20:30; Stop 02/01/17 at 20:31; Status DC Acetaminophen (Tylenol) 650 mg PRN Q6HRS PRN PO MILD PAIN / TEMP Last administered on 02/06/17 15:27; Start 02/01/17 at 23:15 Multi-Ingredient Ointment (Analgesic [place]) 1 rosita PRN QID PRN TP MUSCLE PAIN; Start 02/01/17 at 23:15 Al Hydroxide/Mg Hydroxide (Mylanta Plus Xs) 15 ml PRN AFTMEALHC PRN PO DYSPEPSIA; Start 02/01/17 at 23:15 Magnesium Hydroxide (Milk Of Magnesia) 2,400 mg PRN QHS PRN PO CONSTIPATION Last administered on 02/02/17 14:57; Start 02/01/17 at 23:15 Olanzapine (ZyPREXA) 5 mg HS PO Last administered on 02/06/17 19:38; Start at 21:00 Quetiapine Fumarate (SEROquel) 25 mg BID PO Last administered on 02/06/17 19: 39; Start 02/02/17 at 09:00 Sertraline HCl (Zoloft) 100 mg DAILY PO Last administered on 02/06/17 08:01; Start 02/02/17 at 09:00; Stop 02/06/17 at 18:56; Status DC Olanzapine (ZyPREXA) 5 mg 1X ONCE PO Last administered on 02/02/17 00:27; Start 02/02/17 at 00:30; Stop 02/02/17 at 00:31; Status DC Alprazolam (Xanax) 0.5 mg BID PO Last administered on 02/06/17 19:40; Start at 09:00 Lorazepam (Ativan) 0.5 mg PRN Q4HRS PRN PO ANXIETY / AGITATION Last administered on 02/02/17 14:57; Start 02/02/17 at 00:15; Stop 02/02/17 at 15:59 ; Status DC Levothyroxine Sodium (Synthroid) 112 mcg DAILY06 PO Last administered on 05:16; Start 02/02/17 at 10:00 Naproxen (Naprosyn) 500 mg BID PO Last administered on 02/06/17 19:39; Start 02/02/17 at 09:00 Atorvastatin Calcium (Lipitor) 40 mg QHS PO Last administered on 02/06/17 19: 39; Start 02/02/17 at 21:00 Mirtazapine (Remeron) 7.5 mg QHS PO Last administered on 02/06/17 19:39; Start 02/02/17 at 21:00 Olanzapine (ZyPREXA ZYDIS) 2.5 mg PRN Q2HR PRN PO PSYCHOSIS Last administered on 02/06/17 15:47; Start 02/02/17 at 15:45 Alprazolam (Xanax) 0.25 mg PRN Q2HR PRN PO ANXIETY / AGITATION Last administered on 02/06/17 15:47; Start 02/02/17 at 15:45 Docusate Sodium (Colace) 100 mg BID PO Last administered on 02/06/17 19:39; Start 02/02/17 at 21:00 Polyethylene Glycol (miraLAX) 17 gm DAILY PO Last administered on 02/06/17 08: 02; Start 02/03/17 at 09:00 Vitamin D (Vitamin D3) 50,000 unit WEEKLY PO ; Start 02/10/17 at 09:00 Divalproex Sodium (Depakote Sprinkles) 125 mg TID@0900,1300,1700 PO Last administered on 02/06/17 16:46; Start 02/04/17 at 09:00; Stop 02/06/17 at 18:56 ; Status DC Divalproex Sodium (Depakote Sprinkles) 250 mg TID@0900,1300,1700 PO ; Start at 09:00 Fluvoxamine Maleate (Luvox) 50 mg HS PO Last administered on 02/06/17 19:40; Start 02/06/17 at 21:00 Active Scripts Active Reported Atorvastatin Calcium 40 Mg Tablet 40 Mg PO QHS Naproxen 500 Mg Tablet 500 Mg PO BID Lorazepam 0.5 Mg Tablet 0.5 Mg PO PRN Q4HRS PRN Seroquel (Quetiapine Fumarate) 25 Mg Tablet 25 Mg PO BID Zoloft (Sertraline Hcl) 100 Mg Tablet 100 Mg PO DAILY Levothyroxine Sodium 112 Mcg Tablet 112 Mcg PO DAILYAC Olanzapine 5 Mg Tablet 5 Mg PO HS Alprazolam 0.5 Mg Tablet 0.5 Mg PO BID Diagnosis: Problems: (1) Anxiety disorder (2) Bipolar 1 disorder, mixed, moderate (3) Dementia in Alzheimer's disease with delusions (4) Dementia in Alzheimer's disease with depression (5) Dementia, vascular, with depression (6) Dementia, vascular, with delusions (7) Impulse control disorder ELEANOR BILLS MD Feb 06, 2017 19:52
[2017-02-07] MEDS: LEVOTHYROXINE 112 MCG TABLET PO SCH (05:56)
[2017-02-07 06:30] VITALS: BP 153/82
[2017-02-07] MEDS: NAPROXEN 500 MG TABLET PO SCH ×2 (08:06→19:25)
[2017-02-07] MEDS: QUEtiapine 25 MG TABLET. PO SCH ×2 (08:06→19:26)
[2017-02-07] MEDS: ALPRAZolam 0.5 MG TABLET PO SCH ×2 (08:06→19:27)
[2017-02-07] MEDS: DOCUSATE SODIUM 100 MG CAPSULE PO SCH ×2 (08:06→19:26)
[2017-02-07] MEDS: DIVALPROEX 125 MG CAP.SPRINK PO SCH ×3 (08:07→17:45)
[2017-02-07] MEDS: POLYETHYLENE GLYCOL 3350 17 GM PACKET. PO SCH (08:07)
--- NOTE | 2017-02-07 09:38 | PN ---
DATE: 02/05/2017 SUBJECTIVE: This is a late entry 02/05/2017, covers elements not covered in my initial note of 02/05/2017. Met with the patient evening of 02/05/2017. The patient continues to yell almost obsessively consistently. Received Zyprexa at breakfast seemed to help her. Labs are due on 02/06/2017 and we will adjust Depakote thereafter. REVIEW OF SYSTEMS: Ambulation impaired in a wheelchair. No CV, , pulmonary, eye, or ENT system symptoms on review. Reliability poor. MENTAL STATUS EXAM: Oriented to herself. Insight, judgment, recent and remote memory, attention, concentration, fund of knowledge poor, consistent with her diagnosis mentioned in my initial note. PLAN: Continue current psychotropics. Check labs on 02/06/2017. Adjust psychotropics thereafter. Reviewed the risk/benefit ratio, which indicates no further change for now. Reviewed drug interactions. ELEANOR BILLS MD DR: JAIME/meli JOB#: [id number] / [id number]
[2017-02-07] MEDS: ALPRAZolam 0.25 MG TABLET PO PRN (15:15)
[2017-02-07 15:50] VITALS: BP 103/56
[2017-02-07] MEDS: ATORVASTATIN CALCIUM 20 MG TABLET PO SCH (19:24)
[2017-02-07] MEDS: OLANZapine 5 MG TABLET PO SCH (19:26)
[2017-02-07] MEDS: MIRTAZAPINE 7.5 MG TABLET. PO SCH (19:26)
--- NOTE | 2017-02-07 19:48 | PDOC ---
Exam Jeanmarie Demential Exam: Jeanmarie Note: Please also refer to the separate dictated note~for this date of service dictated separately.~Patient seen individually. Discussed the patient with Nursing staff reviewed the chart.~Reviewed interim history and current functioning. Reviewed vital signs,~Labs/ Radiology~and current medications noted below. Continue current treatment with the changes noted in the dictated addendum note Assessment: Vital Signs: Vital Signs Date Time Temp Pulse Resp B/P (MAP) Pulse Ox O2 Delivery O2 Flow Rate FiO2 02/07/17 15:50 98.2 85 16 103/56 (72) 96 02/03/17 16:34 Room Air I&O Intake and Output 02/08/17 07:00 Intake Total 1020 ml Balance 1020 ml Intake Oral 1020 ml Current Medications: Meds: Current Medications Lorazepam (Ativan) 0.5 mg 1X ONCE PO Last administered on 02/01/17 19:14; Start 02/01/17 at 19:15; Stop 02/01/17 at 19:16; Status DC Ceftriaxone Sodium (Rocephin Im) 1 gm 1X ONCE IM Last administered on 20:45; Start 02/01/17 at 20:30; Stop 02/01/17 at 20:31; Status DC Acetaminophen (Tylenol) 650 mg PRN Q6HRS PRN PO MILD PAIN / TEMP Last administered on 02/06/17 15:27; Start 02/01/17 at 23:15 Multi-Ingredient Ointment (Analgesic [place]) 1 rosita PRN QID PRN TP MUSCLE PAIN; Start 02/01/17 at 23:15 Al Hydroxide/Mg Hydroxide (Mylanta Plus Xs) 15 ml PRN AFTMEALHC PRN PO DYSPEPSIA; Start 02/01/17 at 23:15 Magnesium Hydroxide (Milk Of Magnesia) 2,400 mg PRN QHS PRN PO CONSTIPATION Last administered on 02/02/17 14:57; Start 02/01/17 at 23:15 Olanzapine (ZyPREXA) 5 mg HS PO Last administered on 02/07/17 19:26; Start at 21:00 Quetiapine Fumarate (SEROquel) 25 mg BID PO Last administered on 02/07/17 19: 26; Start 02/02/17 at 09:00 Sertraline HCl (Zoloft) 100 mg DAILY PO Last administered on 02/06/17 08:01; Start 02/02/17 at 09:00; Stop 02/06/17 at 18:56; Status DC Olanzapine (ZyPREXA) 5 mg 1X ONCE PO Last administered on 02/02/17 00:27; Start 02/02/17 at 00:30; Stop 02/02/17 at 00:31; Status DC Alprazolam (Xanax) 0.5 mg BID PO Last administered on 02/07/17 19:27; Start at 09:00 Lorazepam (Ativan) 0.5 mg PRN Q4HRS PRN PO ANXIETY / AGITATION Last administered on 02/02/17 14:57; Start 02/02/17 at 00:15; Stop 02/02/17 at 15:59 ; Status DC Levothyroxine Sodium (Synthroid) 112 mcg DAILY06 PO Last administered on 05:56; Start 02/02/17 at 10:00 Naproxen (Naprosyn) 500 mg BID PO Last administered on 02/07/17 19:25; Start 02/02/17 at 09:00 Atorvastatin Calcium (Lipitor) 40 mg QHS PO Last administered on 02/07/17 19: 24; Start 02/02/17 at 21:00 Mirtazapine (Remeron) 7.5 mg QHS PO Last administered on 02/07/17 19:26; Start 02/02/17 at 21:00 Olanzapine (ZyPREXA ZYDIS) 2.5 mg PRN Q2HR PRN PO PSYCHOSIS Last administered on 02/07/17 15:15; Start 02/02/17 at 15:45 Alprazolam (Xanax) 0.25 mg PRN Q2HR PRN PO ANXIETY / AGITATION Last administered on 02/07/17 15:15; Start 02/02/17 at 15:45 Docusate Sodium (Colace) 100 mg BID PO Last administered on 02/07/17 19:26; Start 02/02/17 at 21:00 Polyethylene Glycol (miraLAX) 17 gm DAILY PO Last administered on 02/07/17 08: 07; Start 02/03/17 at 09:00 Vitamin D (Vitamin D3) 50,000 unit WEEKLY PO ; Start 02/10/17 at 09:00 Divalproex Sodium (Depakote Sprinkles) 125 mg TID@0900,1300,1700 PO Last administered on 02/06/17 16:46; Start 02/04/17 at 09:00; Stop 02/06/17 at 18:56 ; Status DC Divalproex Sodium (Depakote Sprinkles) 250 mg TID@0900,1300,1700 PO Last administered on 02/07/17 17:45; Start 02/07/17 at 09:00 Fluvoxamine Maleate (Luvox) 50 mg HS PO Last administered on 02/07/17 19:25; Start 02/06/17 at 21:00 Active Scripts Active Reported Atorvastatin Calcium 40 Mg Tablet 40 Mg PO QHS Naproxen 500 Mg Tablet 500 Mg PO BID Lorazepam 0.5 Mg Tablet 0.5 Mg PO PRN Q4HRS PRN Seroquel (Quetiapine Fumarate) 25 Mg Tablet 25 Mg PO BID Zoloft (Sertraline Hcl) 100 Mg Tablet 100 Mg PO DAILY Levothyroxine Sodium 112 Mcg Tablet 112 Mcg PO DAILYAC Olanzapine 5 Mg Tablet 5 Mg PO HS Alprazolam 0.5 Mg Tablet 0.5 Mg PO BID Diagnosis: Problems: (1) Anxiety disorder (2) Bipolar 1 disorder, mixed, moderate (3) Dementia in Alzheimer's disease with delusions (4) Dementia in Alzheimer's disease with depression (5) Dementia, vascular, with depression (6) Dementia, vascular, with delusions (7) Impulse control disorder ELEANOR BILLS MD Feb 07, 2017 19:47
[2017-02-08 05:46] VITALS: BP 107/68
[2017-02-08] MEDS: LEVOTHYROXINE 112 MCG TABLET PO SCH (06:09)
[2017-02-08] MEDS: NAPROXEN 500 MG TABLET PO SCH ×2 (08:42→19:39)
[2017-02-08] MEDS: QUEtiapine 25 MG TABLET. PO SCH (08:42)
[2017-02-08] MEDS: DOCUSATE SODIUM 100 MG CAPSULE PO SCH ×2 (08:42→19:41)
[2017-02-08] MEDS: DIVALPROEX 125 MG CAP.SPRINK PO SCH ×3 (08:42→17:11)
[2017-02-08] MEDS: POLYETHYLENE GLYCOL 3350 17 GM PACKET. PO SCH (08:42)
[2017-02-08] MEDS: ALPRAZolam 0.5 MG TABLET PO SCH ×2 (08:43→19:42)
--- NOTE | 2017-02-08 09:24 | PN ---
DATE: 02/06/2017 This late entry for 02/06/2017 covers elements not covered in my initial note of 02/06/2017. SUBJECTIVE: I met with the patient in the evening of 02/06/2017. The patient has had a very disruptive day. She has been yelling, screaming, helpless, anxious, confused, has been in the West hallway to remove her from all the stimuli around the unit for her yelling most of the day, which has been extremely disruptive to the entire unit. She slept 7-1/2 hours the previous evening. REVIEW OF SYSTEMS: Ambulation impaired, in a wheelchair. No CV, , pulmonary, eye, ENT system symptoms on review, reliability poor. MENTAL STATUS EXAMINATION: Oriented to herself. Insight, judgment, recent and remote memory, attention, concentration, fund of knowledge poor, consistent with her diagnosis mentioned in my initial note. PLAN: [place] the Zoloft to Luvox 50 mg at bedtime, may need to increase gradually. She is very obsessive and hopefully this should help reduce some of the mood lability, anxiety, obsessiveness. Valproic acid level is 24, subtherapeutic on Depakote 125 t.i.d., we will increase it to 250 t.i.d. Check CBC, CMP and valproic acid level in 3 days. Maintain the rest of the psychotropics unchanged as noted in my initial note, reviewed drug interactions, risk/benefit ratio favors no further change. ELEANOR BILLS MD DR: JAIME/meli JOB#: [id number] / [id number]
[2017-02-08 16:50] VITALS: BP 121/76
[2017-02-08] MEDS: ATORVASTATIN CALCIUM 20 MG TABLET PO SCH (19:39)
[2017-02-08] MEDS: OLANZapine 5 MG TABLET PO SCH (19:39)
[2017-02-08] MEDS: MIRTAZAPINE 7.5 MG TABLET. PO SCH (19:39)
--- NOTE | 2017-02-08 21:16 | PDOC ---
Exam Jeanmarie Demential Exam: Jeanmarie Note: Please also refer to the separate dictated note~for this date of service dictated separately.~Patient seen individually. Discussed the patient with Nursing staff reviewed the chart.~Reviewed interim history and current functioning. Reviewed vital signs,~Labs/ Radiology~and current medications noted below. Continue current treatment with the changes noted in the dictated addendum note Assessment: Vital Signs: Vital Signs Date Time Temp Pulse Resp B/P (MAP) Pulse Ox O2 Delivery O2 Flow Rate FiO2 02/08/17 16:50 99.7 86 18 121/76 (91) 96 02/08/17 05:46 Room Air I&O Intake and Output 02/09/17 07:00 Intake Total 1320 ml Balance 1320 ml Intake Oral 1320 ml # Bowel Movements 1 Current Medications: Meds: Current Medications Lorazepam (Ativan) 0.5 mg 1X ONCE PO Last administered on 02/01/17 19:14; Start 02/01/17 at 19:15; Stop 02/01/17 at 19:16; Status DC Ceftriaxone Sodium (Rocephin Im) 1 gm 1X ONCE IM Last administered on 20:45; Start 02/01/17 at 20:30; Stop 02/01/17 at 20:31; Status DC Acetaminophen (Tylenol) 650 mg PRN Q6HRS PRN PO MILD PAIN / TEMP Last administered on 02/06/17 15:27; Start 02/01/17 at 23:15 Multi-Ingredient Ointment (Analgesic [place]) 1 rosita PRN QID PRN TP MUSCLE PAIN; Start 02/01/17 at 23:15 Al Hydroxide/Mg Hydroxide (Mylanta Plus Xs) 15 ml PRN AFTMEALHC PRN PO DYSPEPSIA; Start 02/01/17 at 23:15 Magnesium Hydroxide (Milk Of Magnesia) 2,400 mg PRN QHS PRN PO CONSTIPATION Last administered on 02/02/17 14:57; Start 02/01/17 at 23:15 Olanzapine (ZyPREXA) 5 mg HS PO Last administered on 02/08/17 19:39; Start at 21:00 Quetiapine Fumarate (SEROquel) 25 mg BID PO Last administered on 02/08/17 08: 42; Start 02/02/17 at 09:00; Stop 02/08/17 at 19:16; Status DC Sertraline HCl (Zoloft) 100 mg DAILY PO Last administered on 02/06/17 08:01; Start 02/02/17 at 09:00; Stop 02/06/17 at 18:56; Status DC Olanzapine (ZyPREXA) 5 mg 1X ONCE PO Last administered on 02/02/17 00:27; Start 02/02/17 at 00:30; Stop 02/02/17 at 00:31; Status DC Alprazolam (Xanax) 0.5 mg BID PO Last administered on 02/08/17 19:42; Start at 09:00 Lorazepam (Ativan) 0.5 mg PRN Q4HRS PRN PO ANXIETY / AGITATION Last administered on 02/02/17 14:57; Start 02/02/17 at 00:15; Stop 02/02/17 at 15:59 ; Status DC Levothyroxine Sodium (Synthroid) 112 mcg DAILY06 PO Last administered on 06:09; Start 02/02/17 at 10:00 Naproxen (Naprosyn) 500 mg BID PO Last administered on 02/08/17 19:39; Start 02/02/17 at 09:00 Atorvastatin Calcium (Lipitor) 40 mg QHS PO Last administered on 02/08/17 19: 39; Start 02/02/17 at 21:00 Mirtazapine (Remeron) 7.5 mg QHS PO Last administered on 02/08/17 19:39; Start 02/02/17 at 21:00 Olanzapine (ZyPREXA ZYDIS) 2.5 mg PRN Q2HR PRN PO PSYCHOSIS Last administered on 02/07/17 15:15; Start 02/02/17 at 15:45 Alprazolam (Xanax) 0.25 mg PRN Q2HR PRN PO ANXIETY / AGITATION Last administered on 02/07/17 15:15; Start 02/02/17 at 15:45 Docusate Sodium (Colace) 100 mg BID PO Last administered on 02/08/17 19:41; Start 02/02/17 at 21:00 Polyethylene Glycol (miraLAX) 17 gm DAILY PO Last administered on 02/08/17 08: 42; Start 02/03/17 at 09:00 Vitamin D (Vitamin D3) 50,000 unit WEEKLY PO ; Start 02/10/17 at 09:00 Divalproex Sodium (Depakote Sprinkles) 125 mg TID@0900,1300,1700 PO Last administered on 02/06/17 16:46; Start 02/04/17 at 09:00; Stop 02/06/17 at 18:56 ; Status DC Divalproex Sodium (Depakote Sprinkles) 250 mg TID@0900,1300,1700 PO Last administered on 02/08/17 17:11; Start 02/07/17 at 09:00 Fluvoxamine Maleate (Luvox) 50 mg HS PO Last administered on 02/08/17 19:41; Start 02/06/17 at 21:00 Quetiapine Fumarate (SEROquel) 25 mg TID PO ; Start 02/09/17 at 09:00 Active Scripts Active Reported Atorvastatin Calcium 40 Mg Tablet 40 Mg PO QHS Naproxen 500 Mg Tablet 500 Mg PO BID Lorazepam 0.5 Mg Tablet 0.5 Mg PO PRN Q4HRS PRN Seroquel (Quetiapine Fumarate) 25 Mg Tablet 25 Mg PO BID Zoloft (Sertraline Hcl) 100 Mg Tablet 100 Mg PO DAILY Levothyroxine Sodium 112 Mcg Tablet 112 Mcg PO DAILYAC Olanzapine 5 Mg Tablet 5 Mg PO HS Alprazolam 0.5 Mg Tablet 0.5 Mg PO BID Diagnosis: Problems: (1) Anxiety disorder (2) Bipolar 1 disorder, mixed, moderate (3) Dementia in Alzheimer's disease with delusions (4) Dementia in Alzheimer's disease with depression (5) Dementia, vascular, with depression (6) Dementia, vascular, with delusions (7) Impulse control disorder ELEANOR BILLS MD Feb 08, 2017 21:16
[2017-02-08] MEDS: ALPRAZolam 0.25 MG TABLET PO PRN (22:47)
--- NOTE | 2017-02-09 05:18 | PN ---
DATE: 02/07/2017 PSYCHIATRIC PROGRESS NOTE This is a late entry 02/07/2017, covers elements not covered in my initial note of 02/07/2017. Met with the patient in the evening of 02/07/2017. The patient has had a better day than the day before, less yelling, less crying, less lability of mood is evident, still paranoid at times, certainly very confused, spends much time in the day room during the day in a chair. No PRNs have been given. She laid down for a nap after lunch, which seemed to help. She was yelling around 3:00 p.m., received a PRN, which helped. REVIEW OF SYSTEMS: Ambulation impaired. No CV, , pulmonary, eye, ENT system symptoms on review. Reliability poor. MENTAL STATUS EXAM: Oriented to herself. Insight, judgment, recent and remote memory, attention, concentration, fund of knowledge poor, consistent with her diagnosis mentioned in my initial note. PLAN: Continue current psychotropics mentioned in my initial note. Depakote was increased. Labs level are awaited. Luvox was increased. Reviewed drug interactions risk/benefit ratio favors no further change. MAN Aden BILLS MD DR: JAIME/meli JOB#: [id number] / [id number]
[2017-02-09] MEDS: LEVOTHYROXINE 112 MCG TABLET PO SCH (05:35)
[2017-02-09 06:00] VITALS: BP 106/50
[2017-02-09 07:26] LABS: BASO # 0.1 x10^3/uL (0.0-0.2); BASO % 2 % (0-3); EOS # 0.4 x10^3/uL (0.0-0.7); EOS % 7 % (0-3); HEMATOCRIT 37.9 % (36.0-47.0); HEMOGLOBIN 12.9 g/dL (12.0-15.5); LYMPH # 1.7 x10^3/uL (1.0-4.8); LYMPH % 29 % (24-48); MEAN CORPUSCULAR HEMOGLOBIN 31 pg (25-35); MEAN CORPUSCULAR HGB CONC 34 g/dL (31-37); MEAN CORPUSCULAR VOLUME 92 fL (79-100); MONO # 0.6 x10^3/uL (0.0-1.1); MONO % 9 % (0-9); NEUT # 3.3 x10^3uL (1.8-7.7); NEUT % 54 % (31-73); PLATELET COUNT 311 x10^3/uL (140-400); RED BLOOD COUNT 4.14 x10^6/uL (3.50-5.40); RED CELL DISTRIBUTION WIDTH 15.3 % (11.5-14.5); WHITE BLOOD COUNT 6.1 x10^3/uL (4.0-11.0)
[2017-02-09 07:45] LABS: ALBUMIN 3.2 g/dL (3.4-5.0); ALBUMIN/GLOBULIN RATIO 1.3 (1.0-1.7); ALK PHOS 90 U/L (46-116); ALT (SGPT) 44 U/L (14-59); ANION GAP 4 (6-14); AST (SGOT) 21 U/L (15-37); BLOOD UREA NITROGEN 26 mg/dL (7-20); BUN/CREATININE RATIO 43 (6-20); CALCIUM 8.3 mg/dL (8.5-10.1); CARBON DIOXIDE 29 mmol/L (21-32); CHLORIDE 109 mmol/L (98-107); CREATININE 0.6 mg/dL (0.6-1.0); GFR 99.7; GLUCOSE 85 mg/dL (70-99); MAGNESIUM 2.2 mg/dL (1.8-2.4); POTASSIUM 4.5 mmol/L (3.5-5.1); SODIUM 142 mmol/L (136-145); TOTAL BILIRUBIN 0.3 mg/dL (0.2-1.0); TOTAL PROTEIN 5.7 g/dL (6.4-8.2)
[2017-02-09 07:47] LABS: VAL ACID 45 mcg/mL (50-100)
[2017-02-09] MEDS ORDERED: QUEtiapine 25 MG TABLET. PO SCH (09:00)
[2017-02-09] MEDS: POLYETHYLENE GLYCOL 3350 17 GM PACKET. PO SCH (09:12)
[2017-02-09] MEDS: NAPROXEN 500 MG TABLET PO SCH ×2 (09:13→19:40)
[2017-02-09] MEDS: DIVALPROEX 125 MG CAP.SPRINK PO SCH ×3 (09:13→16:54)
[2017-02-09] MEDS: DOCUSATE SODIUM 100 MG CAPSULE PO SCH ×2 (09:13→19:39)
[2017-02-09] MEDS: ALPRAZolam 0.5 MG TABLET PO SCH ×2 (09:16→19:41)
[2017-02-09] MEDS: QUEtiapine 25 MG TABLET. PO SCH ×2 (13:34→19:41)
[2017-02-09 16:28] VITALS: BP 114/57
[2017-02-09] MEDS: ATORVASTATIN CALCIUM 20 MG TABLET PO SCH (19:40)
[2017-02-09] MEDS: MIRTAZAPINE 7.5 MG TABLET. PO SCH (19:40)
[2017-02-09] MEDS: OLANZapine 5 MG TABLET PO SCH (19:40)
--- NOTE | 2017-02-09 21:12 | PDOC ---
Exam Jeanmarie Demential Exam: Jeanmarie Note: Please also refer to the separate dictated note~for this date of service dictated separately.~Patient seen individually. Discussed the patient with Nursing staff reviewed the chart.~Reviewed interim history and current functioning. Reviewed vital signs,~Labs/ Radiology~and current medications noted below. Continue current treatment with the changes noted in the dictated addendum note Assessment: Vital Signs: Vital Signs Date Time Temp Pulse Resp B/P (MAP) Pulse Ox O2 Delivery O2 Flow Rate FiO2 02/09/17 16:28 98.0 79 18 114/57 (76) 96 02/08/17 05:46 Room Air I&O Intake and Output 02/10/17 07:00 Intake Total 1060 ml Balance 1060 ml Intake Oral 1060 ml # Bowel Movements 1 Labs: Laboratory Tests Test 02/09/17 07:02 White Blood Count 6.1 x10^3/uL (4.0-11.0) Red Blood Count 4.14 x10^6/uL (3.50-5.40) Hemoglobin 12.9 g/dL (12.0-15.5) Hematocrit 37.9 % (36.0-47.0) Mean Corpuscular Volume 92 fL (79-100) Mean Corpuscular Hemoglobin 31 pg (25-35) Mean Corpuscular Hemoglobin Concent 34 g/dL (31-37) Red Cell Distribution Width 15.3 % (11.5-14.5) H Platelet Count 311 x10^3/uL (140-400) Neutrophils (%) (Auto) 54 % (31-73) Lymphocytes (%) (Auto) 29 % (24-48) Monocytes (%) (Auto) 9 % (0-9) Eosinophils (%) (Auto) 7 % (0-3) H Basophils (%) (Auto) 2 % (0-3) Neutrophils # (Auto) 3.3 x10^3uL (1.8-7.7) Lymphocytes # (Auto) 1.7 x10^3/uL (1.0-4.8) Monocytes # (Auto) 0.6 x10^3/uL (0.0-1.1) Eosinophils # (Auto) 0.4 x10^3/uL (0.0-0.7) Basophils # (Auto) 0.1 x10^3/uL (0.0-0.2) Sodium Level 142 mmol/L (136-145) Potassium Level 4.5 mmol/L (3.5-5.1) Chloride Level 109 mmol/L (98-107) H Carbon Dioxide Level 29 mmol/L (21-32) Anion Gap 4 (6-14) L Blood Urea Nitrogen 26 mg/dL (7-20) H Creatinine 0.6 mg/dL (0.6-1.0) Estimated GFR (Cockcroft-Gault) 99.7 BUN/Creatinine Ratio 43 (6-20) H Glucose Level 85 mg/dL (70-99) Calcium Level 8.3 mg/dL (8.5-10.1) L Magnesium Level 2.2 mg/dL (1.8-2.4) Total Bilirubin 0.3 mg/dL (0.2-1.0) Aspartate Amino Transferase (AST) 21 U/L (15-37) Alanine Aminotransferase (ALT) 44 U/L (14-59) Alkaline Phosphatase 90 U/L (46-116) Total Protein 5.7 g/dL (6.4-8.2) L Albumin 3.2 g/dL (3.4-5.0) L Albumin/Globulin Ratio 1.3 (1.0-1.7) Valproic Acid Level 45 mcg/mL (50-100) L Valproic Acid Last Dose Date 02/08/17 Valproic Acid Last Dose Time 1700 Current Medications: Meds: Current Medications Lorazepam (Ativan) 0.5 mg 1X ONCE PO Last administered on 02/01/17 19:14; Start 02/01/17 at 19:15; Stop 02/01/17 at 19:16; Status DC Ceftriaxone Sodium (Rocephin Im) 1 gm 1X ONCE IM Last administered on 20:45; Start 02/01/17 at 20:30; Stop 02/01/17 at 20:31; Status DC Acetaminophen (Tylenol) 650 mg PRN Q6HRS PRN PO MILD PAIN / TEMP Last administered on 02/06/17 15:27; Start 02/01/17 at 23:15 Multi-Ingredient Ointment (Analgesic [place]) 1 rosita PRN QID PRN TP MUSCLE PAIN; Start 02/01/17 at 23:15 Al Hydroxide/Mg Hydroxide (Mylanta Plus Xs) 15 ml PRN AFTMEALHC PRN PO DYSPEPSIA; Start 02/01/17 at 23:15 Magnesium Hydroxide (Milk Of Magnesia) 2,400 mg PRN QHS PRN PO CONSTIPATION Last administered on 02/02/17 14:57; Start 02/01/17 at 23:15 Olanzapine (ZyPREXA) 5 mg HS PO Last administered on 02/09/17 19:40; Start at 21:00 Quetiapine Fumarate (SEROquel) 25 mg BID PO Last administered on 02/08/17 08: 42; Start 02/02/17 at 09:00; Stop 02/08/17 at 19:16; Status DC Sertraline HCl (Zoloft) 100 mg DAILY PO Last administered on 02/06/17 08:01; Start 02/02/17 at 09:00; Stop 02/06/17 at 18:56; Status DC Olanzapine (ZyPREXA) 5 mg 1X ONCE PO Last administered on 02/02/17 00:27; Start 02/02/17 at 00:30; Stop 02/02/17 at 00:31; Status DC Alprazolam (Xanax) 0.5 mg BID PO Last administered on 02/09/17 19:41; Start at 09:00 Lorazepam (Ativan) 0.5 mg PRN Q4HRS PRN PO ANXIETY / AGITATION Last administered on 02/02/17 14:57; Start 02/02/17 at 00:15; Stop 02/02/17 at 15:59 ; Status DC Levothyroxine Sodium (Synthroid) 112 mcg DAILY06 PO Last administered on 05:35; Start 02/02/17 at 10:00 Naproxen (Naprosyn) 500 mg BID PO Last administered on 02/09/17 19:40; Start 02/02/17 at 09:00 Atorvastatin Calcium (Lipitor) 40 mg QHS PO Last administered on 02/09/17 19: 40; Start 02/02/17 at 21:00 Mirtazapine (Remeron) 7.5 mg QHS PO Last administered on 02/09/17 19:40; Start 02/02/17 at 21:00 Olanzapine (ZyPREXA ZYDIS) 2.5 mg PRN Q2HR PRN PO PSYCHOSIS Last administered on 02/07/17 15:15; Start 02/02/17 at 15:45 Alprazolam (Xanax) 0.25 mg PRN Q2HR PRN PO ANXIETY / AGITATION Last administered on 02/08/17 22:47; Start 02/02/17 at 15:45 Docusate Sodium (Colace) 100 mg BID PO Last administered on 02/09/17 19:39; Start 02/02/17 at 21:00 Polyethylene Glycol (miraLAX) 17 gm DAILY PO Last administered on 02/09/17 09: 12; Start 02/03/17 at 09:00 Vitamin D (Vitamin D3) 50,000 unit WEEKLY PO ; Start 02/10/17 at 09:00 Divalproex Sodium (Depakote Sprinkles) 125 mg TID@0900,1300,1700 PO Last administered on 02/06/17 16:46; Start 02/04/17 at 09:00; Stop 02/06/17 at 18:56 ; Status DC Divalproex Sodium (Depakote Sprinkles) 250 mg TID@0900,1300,1700 PO Last administered on 02/09/17 09:13; Start 02/07/17 at 09:00; Stop 02/09/17 at 13:03 ; Status DC Fluvoxamine Maleate (Luvox) 50 mg HS PO Last administered on 02/09/17 19:40; Start 02/06/17 at 21:00 Quetiapine Fumarate (SEROquel) 25 mg TID PO Last administered on 02/09/17 09: 16; Start 02/09/17 at 09:00; Stop 02/09/17 at 13:30; Status DC Divalproex Sodium (Depakote Sprinkles) 375 mg TID@0900,1300,1700 PO Last administered on 02/09/17 16:54; Start 02/09/17 at 13:00 Quetiapine Fumarate (SEROquel) 37.5 mg TID PO Last administered on 02/09/17 19 :41; Start 02/09/17 at 14:00 Active Scripts Active Reported Atorvastatin Calcium 40 Mg Tablet 40 Mg PO QHS Naproxen 500 Mg Tablet 500 Mg PO BID Lorazepam 0.5 Mg Tablet 0.5 Mg PO PRN Q4HRS PRN Seroquel (Quetiapine Fumarate) 25 Mg Tablet 25 Mg PO BID Zoloft (Sertraline Hcl) 100 Mg Tablet 100 Mg PO DAILY Levothyroxine Sodium 112 Mcg Tablet 112 Mcg PO DAILYAC Olanzapine 5 Mg Tablet 5 Mg PO HS Alprazolam 0.5 Mg Tablet 0.5 Mg PO BID Diagnosis: Problems: (1) Anxiety disorder (2) Bipolar 1 disorder, mixed, moderate (3) Dementia in Alzheimer's disease with delusions (4) Dementia in Alzheimer's disease with depression (5) Dementia, vascular, with depression (6) Dementia, vascular, with delusions (7) Impulse control disorder ELEANOR BILLS MD Feb 09, 2017 21:12
[2017-02-10] MEDS: LEVOTHYROXINE 112 MCG TABLET PO SCH (05:22)
[2017-02-10 06:04] VITALS: BP 109/61
[2017-02-10] MEDS: QUEtiapine 25 MG TABLET. PO SCH ×3 (08:36→19:47)
[2017-02-10] MEDS: ALPRAZolam 0.5 MG TABLET PO SCH ×2 (08:36→19:48)
[2017-02-10] MEDS: NAPROXEN 500 MG TABLET PO SCH ×2 (08:36→19:47)
[2017-02-10] MEDS: DOCUSATE SODIUM 100 MG CAPSULE PO SCH ×2 (08:36→19:46)
[2017-02-10] MEDS: DIVALPROEX 125 MG CAP.SPRINK PO SCH ×3 (08:37→17:03)
[2017-02-10] MEDS: POLYETHYLENE GLYCOL 3350 17 GM PACKET. PO SCH (08:37)
[2017-02-10] MEDS: CHOLECALCIFEROL (VITAMIN D3) 50,000 UNIT CAPSULE PO SCH (08:38)
--- NOTE | 2017-02-10 09:04 | PN ---
DATE: 02/08/2017 This late entry 02/08/2017 covers elements not covered in my initial note of 02/08/2017. I met with the patient in the evening of 02/08/2017. Per nursing report, the patient was fairly quiet previous evening; mailing specialist of 02/08/2017, she was yelling off and on. She did go to groups. She is not sedated, slept 7-1/2 hours the previous evening. REVIEW OF SYSTEMS: Ambulation impaired, but rest of the review of systems, questions are deduced from her responses rather than direct answers consequent to her dementia. No specific CV, , pulmonary, eye system symptoms on review. MENTAL STATUS EXAM: Oriented to herself. Insight, judgment, recent and remote memory, attention, concentration, fund of knowledge poor, consistent with her diagnosis as mentioned in my initial note. PLAN: Increase Seroquel from 25 mg b.i.d. to 25 mg 3 times a day, may need to increase this further in due course. Depakote was increased. Labs level awaited 02/09/2017, will adjust further thereafter. Reviewed drug interactions, risk/benefit ratio favors no further change. ELEANOR BILLS MD DR: JAIME/meli JOB#: [id number] / [id number]
[2017-02-10 16:14] VITALS: BP 123/55
[2017-02-10] MEDS: ATORVASTATIN CALCIUM 20 MG TABLET PO SCH (19:46)
[2017-02-10] MEDS: MIRTAZAPINE 7.5 MG TABLET. PO SCH (19:47)
[2017-02-10] MEDS: OLANZapine 5 MG TABLET PO SCH (19:47)
--- NOTE | 2017-02-10 21:04 | PDOC ---
Exam Jeanmarie Demential Exam: Jeanmarie Note: Please also refer to the separate dictated note~for this date of service dictated separately.~Patient seen individually. Discussed the patient with Nursing staff reviewed the chart.~Reviewed interim history and current functioning. Reviewed vital signs,~Labs/ Radiology~and current medications noted below. Continue current treatment with the changes noted in the dictated addendum note Assessment: Vital Signs: Vital Signs Date Time Temp Pulse Resp B/P (MAP) Pulse Ox O2 Delivery O2 Flow Rate FiO2 02/10/17 16:14 97.8 85 16 123/55 (77) 95 02/08/17 05:46 Room Air I&O Intake and Output 02/11/17 07:00 Intake Total 1080 ml Balance 1080 ml Intake Oral 1080 ml Current Medications: Meds: Current Medications Lorazepam (Ativan) 0.5 mg 1X ONCE PO Last administered on 02/01/17 19:14; Start 02/01/17 at 19:15; Stop 02/01/17 at 19:16; Status DC Ceftriaxone Sodium (Rocephin Im) 1 gm 1X ONCE IM Last administered on 20:45; Start 02/01/17 at 20:30; Stop 02/01/17 at 20:31; Status DC Acetaminophen (Tylenol) 650 mg PRN Q6HRS PRN PO MILD PAIN / TEMP Last administered on 02/06/17 15:27; Start 02/01/17 at 23:15 Multi-Ingredient Ointment (Analgesic [place]) 1 rosita PRN QID PRN TP MUSCLE PAIN; Start 02/01/17 at 23:15 Al Hydroxide/Mg Hydroxide (Mylanta Plus Xs) 15 ml PRN AFTMEALHC PRN PO DYSPEPSIA; Start 02/01/17 at 23:15 Magnesium Hydroxide (Milk Of Magnesia) 2,400 mg PRN QHS PRN PO CONSTIPATION Last administered on 02/02/17 14:57; Start 02/01/17 at 23:15 Olanzapine (ZyPREXA) 5 mg HS PO Last administered on 02/10/17 19:47; Start at 21:00 Quetiapine Fumarate (SEROquel) 25 mg BID PO Last administered on 02/08/17 08: 42; Start 02/02/17 at 09:00; Stop 02/08/17 at 19:16; Status DC Sertraline HCl (Zoloft) 100 mg DAILY PO Last administered on 02/06/17 08:01; Start 02/02/17 at 09:00; Stop 02/06/17 at 18:56; Status DC Olanzapine (ZyPREXA) 5 mg 1X ONCE PO Last administered on 02/02/17 00:27; Start 02/02/17 at 00:30; Stop 02/02/17 at 00:31; Status DC Alprazolam (Xanax) 0.5 mg BID PO Last administered on 02/10/17 19:48; Start at 09:00 Lorazepam (Ativan) 0.5 mg PRN Q4HRS PRN PO ANXIETY / AGITATION Last administered on 02/02/17 14:57; Start 02/02/17 at 00:15; Stop 02/02/17 at 15:59 ; Status DC Levothyroxine Sodium (Synthroid) 112 mcg DAILY06 PO Last administered on 05:22; Start 02/02/17 at 10:00 Naproxen (Naprosyn) 500 mg BID PO Last administered on 02/10/17 19:47; Start 02/02/17 at 09:00 Atorvastatin Calcium (Lipitor) 40 mg QHS PO Last administered on 02/10/17 19: 46; Start 02/02/17 at 21:00 Mirtazapine (Remeron) 7.5 mg QHS PO Last administered on 02/10/17 19:47; Start 02/02/17 at 21:00 Olanzapine (ZyPREXA ZYDIS) 2.5 mg PRN Q2HR PRN PO PSYCHOSIS Last administered on 02/07/17 15:15; Start 02/02/17 at 15:45 Alprazolam (Xanax) 0.25 mg PRN Q2HR PRN PO ANXIETY / AGITATION Last administered on 02/08/17 22:47; Start 02/02/17 at 15:45 Docusate Sodium (Colace) 100 mg BID PO Last administered on 02/10/17 19:46; Start 02/02/17 at 21:00 Polyethylene Glycol (miraLAX) 17 gm DAILY PO Last administered on 02/10/17 08: 37; Start 02/03/17 at 09:00 Vitamin D (Vitamin D3) 50,000 unit WEEKLY PO Last administered on 02/10/17 08: 38; Start 02/10/17 at 09:00 Divalproex Sodium (Depakote Sprinkles) 125 mg TID@0900,1300,1700 PO Last administered on 02/06/17 16:46; Start 02/04/17 at 09:00; Stop 02/06/17 at 18:56 ; Status DC Divalproex Sodium (Depakote Sprinkles) 250 mg TID@0900,1300,1700 PO Last administered on 02/09/17 09:13; Start 02/07/17 at 09:00; Stop 02/09/17 at 13:03 ; Status DC Fluvoxamine Maleate (Luvox) 50 mg HS PO Last administered on 02/10/17 19:46; Start 02/06/17 at 21:00 Quetiapine Fumarate (SEROquel) 25 mg TID PO Last administered on 02/09/17 09: 16; Start 02/09/17 at 09:00; Stop 02/09/17 at 13:30; Status DC Divalproex Sodium (Depakote Sprinkles) 375 mg TID@0900,1300,1700 PO Last administered on 02/10/17 17:03; Start 02/09/17 at 13:00 Quetiapine Fumarate (SEROquel) 37.5 mg TID PO Last administered on 02/10/17 19 :47; Start 02/09/17 at 14:00 Active Scripts Active Reported Atorvastatin Calcium 40 Mg Tablet 40 Mg PO QHS Naproxen 500 Mg Tablet 500 Mg PO BID Lorazepam 0.5 Mg Tablet 0.5 Mg PO PRN Q4HRS PRN Seroquel (Quetiapine Fumarate) 25 Mg Tablet 25 Mg PO BID Zoloft (Sertraline Hcl) 100 Mg Tablet 100 Mg PO DAILY Levothyroxine Sodium 112 Mcg Tablet 112 Mcg PO DAILYAC Olanzapine 5 Mg Tablet 5 Mg PO HS Alprazolam 0.5 Mg Tablet 0.5 Mg PO BID Diagnosis: Problems: (1) Anxiety disorder (2) Bipolar 1 disorder, mixed, moderate (3) Dementia in Alzheimer's disease with delusions (4) Dementia in Alzheimer's disease with depression (5) Dementia, vascular, with depression (6) Dementia, vascular, with delusions (7) Impulse control disorder ELEANOR BILLS MD Feb 10, 2017 21:03
[2017-02-11] MEDS: LEVOTHYROXINE 112 MCG TABLET PO SCH (05:07)
[2017-02-11 06:21] VITALS: BP 145/72
[2017-02-11] MEDS: DIVALPROEX 125 MG CAP.SPRINK PO SCH ×3 (07:50→17:11)
[2017-02-11] MEDS: QUEtiapine 25 MG TABLET. PO SCH ×3 (07:50→20:08)
[2017-02-11] MEDS: NAPROXEN 500 MG TABLET PO SCH ×2 (07:50→20:07)
[2017-02-11] MEDS: DOCUSATE SODIUM 100 MG CAPSULE PO SCH ×2 (07:51→20:07)
[2017-02-11] MEDS: POLYETHYLENE GLYCOL 3350 17 GM PACKET. PO SCH (07:51)
[2017-02-11] MEDS: ALPRAZolam 0.5 MG TABLET PO SCH ×2 (07:53→20:09)
[2017-02-11] MEDS: ACETAMINOPHEN 325 MG TABLET PO PRN (11:49)
[2017-02-11] MEDS: ALPRAZolam 0.25 MG TABLET PO PRN (11:50)
[2017-02-11 17:05] VITALS: BP 131/83
[2017-02-11] MEDS: ATORVASTATIN CALCIUM 20 MG TABLET PO SCH (20:07)
[2017-02-11] MEDS: OLANZapine 5 MG TABLET PO SCH (20:08)
[2017-02-11] MEDS: MIRTAZAPINE 7.5 MG TABLET. PO SCH (20:08)
--- NOTE | 2017-02-11 21:16 | PDOC ---
Exam Jeanmarie Demential Exam: Jeanmarie Note: Please also refer to the separate dictated note~for this date of service dictated separately.~Patient seen individually. Discussed the patient with Nursing staff reviewed the chart.~Reviewed interim history and current functioning. Reviewed vital signs,~Labs/ Radiology~and current medications noted below. Continue current treatment with the changes noted in the dictated addendum note Assessment: Vital Signs: Vital Signs Date Time Temp Pulse Resp B/P (MAP) Pulse Ox O2 Delivery O2 Flow Rate FiO2 02/11/17 17:05 97.0 92 18 131/83 (99) 97 Room Air I&O Intake and Output 02/12/17 07:00 Intake Total 580 ml Balance 580 ml Intake Oral 580 ml Current Medications: Meds: Current Medications Lorazepam (Ativan) 0.5 mg 1X ONCE PO Last administered on 02/01/17 19:14; Start 02/01/17 at 19:15; Stop 02/01/17 at 19:16; Status DC Ceftriaxone Sodium (Rocephin Im) 1 gm 1X ONCE IM Last administered on 20:45; Start 02/01/17 at 20:30; Stop 02/01/17 at 20:31; Status DC Acetaminophen (Tylenol) 650 mg PRN Q6HRS PRN PO MILD PAIN / TEMP Last administered on 02/11/17 11:49; Start 02/01/17 at 23:15 Multi-Ingredient Ointment (Analgesic [place]) 1 rosita PRN QID PRN TP MUSCLE PAIN; Start 02/01/17 at 23:15 Al Hydroxide/Mg Hydroxide (Mylanta Plus Xs) 15 ml PRN AFTMEALHC PRN PO DYSPEPSIA; Start 02/01/17 at 23:15 Magnesium Hydroxide (Milk Of Magnesia) 2,400 mg PRN QHS PRN PO CONSTIPATION Last administered on 02/02/17 14:57; Start 02/01/17 at 23:15 Olanzapine (ZyPREXA) 5 mg HS PO Last administered on 02/11/17 20:08; Start at 21:00 Quetiapine Fumarate (SEROquel) 25 mg BID PO Last administered on 02/08/17 08: 42; Start 02/02/17 at 09:00; Stop 02/08/17 at 19:16; Status DC Sertraline HCl (Zoloft) 100 mg DAILY PO Last administered on 02/06/17 08:01; Start 02/02/17 at 09:00; Stop 02/06/17 at 18:56; Status DC Olanzapine (ZyPREXA) 5 mg 1X ONCE PO Last administered on 02/02/17 00:27; Start 02/02/17 at 00:30; Stop 02/02/17 at 00:31; Status DC Alprazolam (Xanax) 0.5 mg BID PO Last administered on 02/11/17 20:09; Start at 09:00 Lorazepam (Ativan) 0.5 mg PRN Q4HRS PRN PO ANXIETY / AGITATION Last administered on 02/02/17 14:57; Start 02/02/17 at 00:15; Stop 02/02/17 at 15:59 ; Status DC Levothyroxine Sodium (Synthroid) 112 mcg DAILY06 PO Last administered on 05:07; Start 02/02/17 at 10:00 Naproxen (Naprosyn) 500 mg BID PO Last administered on 02/11/17 20:07; Start 02/02/17 at 09:00 Atorvastatin Calcium (Lipitor) 40 mg QHS PO Last administered on 02/11/17 20: 07; Start 02/02/17 at 21:00 Mirtazapine (Remeron) 7.5 mg QHS PO Last administered on 02/11/17 20:08; Start 02/02/17 at 21:00 Olanzapine (ZyPREXA ZYDIS) 2.5 mg PRN Q2HR PRN PO PSYCHOSIS Last administered on 02/11/17 16:25; Start 02/02/17 at 15:45 Alprazolam (Xanax) 0.25 mg PRN Q2HR PRN PO ANXIETY / AGITATION Last administered on 02/11/17 11:50; Start 02/02/17 at 15:45 Docusate Sodium (Colace) 100 mg BID PO Last administered on 02/11/17 20:07; Start 02/02/17 at 21:00 Polyethylene Glycol (miraLAX) 17 gm DAILY PO Last administered on 02/11/17 07: 51; Start 02/03/17 at 09:00 Vitamin D (Vitamin D3) 50,000 unit WEEKLY PO Last administered on 02/10/17 08: 38; Start 02/10/17 at 09:00 Divalproex Sodium (Depakote Sprinkles) 125 mg TID@0900,1300,1700 PO Last administered on 02/06/17 16:46; Start 02/04/17 at 09:00; Stop 02/06/17 at 18:56 ; Status DC Divalproex Sodium (Depakote Sprinkles) 250 mg TID@0900,1300,1700 PO Last administered on 02/09/17 09:13; Start 02/07/17 at 09:00; Stop 02/09/17 at 13:03 ; Status DC Fluvoxamine Maleate (Luvox) 50 mg HS PO Last administered on 02/11/17 20:07; Start 02/06/17 at 21:00 Quetiapine Fumarate (SEROquel) 25 mg TID PO Last administered on 02/09/17 09: 16; Start 02/09/17 at 09:00; Stop 02/09/17 at 13:30; Status DC Divalproex Sodium (Depakote Sprinkles) 375 mg TID@0900,1300,1700 PO Last administered on 02/11/17 17:11; Start 02/09/17 at 13:00 Quetiapine Fumarate (SEROquel) 37.5 mg TID PO Last administered on 02/11/17 20 :08; Start 02/09/17 at 14:00 Active Scripts Active Reported Atorvastatin Calcium 40 Mg Tablet 40 Mg PO QHS Naproxen 500 Mg Tablet 500 Mg PO BID Lorazepam 0.5 Mg Tablet 0.5 Mg PO PRN Q4HRS PRN Seroquel (Quetiapine Fumarate) 25 Mg Tablet 25 Mg PO BID Zoloft (Sertraline Hcl) 100 Mg Tablet 100 Mg PO DAILY Levothyroxine Sodium 112 Mcg Tablet 112 Mcg PO DAILYAC Olanzapine 5 Mg Tablet 5 Mg PO HS Alprazolam 0.5 Mg Tablet 0.5 Mg PO BID Diagnosis: Problems: (1) Anxiety disorder (2) Bipolar 1 disorder, mixed, moderate (3) Dementia in Alzheimer's disease with delusions (4) Dementia in Alzheimer's disease with depression (5) Dementia, vascular, with depression (6) Dementia, vascular, with delusions (7) Impulse control disorder ELEANOR BILLS MD Feb 11, 2017 21:16
--- NOTE | 2017-02-11 21:35 | PN ---
DATE: 02/10/2017 This is a late entry for 02/10/2017 and covers elements not covered in my initial note of 02/10/217. I met with the patient the evening of 02/10/2017. The patient had her breakfast, then was yelling, had to be placed in the best hallway to reduce the sensory stimuli away from other patients. She put herself on the floor. Later in the day, she was much better, much calmer as I met with her the evening of 02/10/2017. REVIEW OF SYSTEMS: Ambulation impaired. No CV, , pulmonary, eye, ENT system symptoms on review. Reliability poor. MENTAL STATUS EXAM: Oriented to herself. Insight, judgment, recent and remote memory, attention, concentration, fund of knowledge poor, consistent with her diagnosis as mentioned in my initial note. PLAN: Continue current psychotropics, may need to increase Seroquel further, but we will check a valproic acid level on 02/12/2017 to make sure the valproic acid level is therapeutic before increasing the Seroquel. Reviewed drug interactions, risk/benefit ratio favors no further change. MAN Aden BILLS MD DR: [email or web address]/meli JOB#: [id number] / [id number]
[2017-02-12] MEDS: LEVOTHYROXINE 112 MCG TABLET PO SCH (05:08)
[2017-02-12 06:21] VITALS: BP 115/66
[2017-02-12] MEDS: DIVALPROEX 125 MG CAP.SPRINK PO SCH ×3 (08:37→17:26)
[2017-02-12] MEDS: NAPROXEN 500 MG TABLET PO SCH ×2 (08:37→20:14)
[2017-02-12] MEDS: POLYETHYLENE GLYCOL 3350 17 GM PACKET. PO SCH (08:37)
[2017-02-12] MEDS: QUEtiapine 25 MG TABLET. PO SCH ×3 (08:38→20:13)
[2017-02-12] MEDS: DOCUSATE SODIUM 100 MG CAPSULE PO SCH ×2 (08:38→20:13)
[2017-02-12] MEDS: ALPRAZolam 0.25 MG TABLET PO PRN ×3 (09:00→20:32)
[2017-02-12] MEDS: ALPRAZolam 0.5 MG TABLET PO SCH ×2 (09:00→20:14)
[2017-02-12 09:56] LABS: BASO % 1 % (0-3); EOS # 0.2 x10^3/uL (0.0-0.7); EOS % 4 % (0-3); HEMATOCRIT 42.6 % (36.0-47.0); HEMOGLOBIN 14.3 g/dL (12.0-15.5); LYMPH # 0.9 x10^3/uL (1.0-4.8); LYMPH % 15 % (24-48); MEAN CORPUSCULAR HEMOGLOBIN 31 pg (25-35); MEAN CORPUSCULAR HGB CONC 34 g/dL (31-37); MEAN CORPUSCULAR VOLUME 92 fL (79-100); MONO # 0.4 x10^3/uL (0.0-1.1); MONO % 6 % (0-9); NEUT # 4.5 x10^3uL (1.8-7.7); NEUT % 74 % (31-73); PLATELET COUNT 301 x10^3/uL (140-400); RED BLOOD COUNT 4.63 x10^6/uL (3.50-5.40); WHITE BLOOD COUNT 6.1 x10^3/uL (4.0-11.0)
[2017-02-12 10:18] LABS: ALBUMIN 3.6 g/dL (3.4-5.0); ALBUMIN/GLOBULIN RATIO 1.3 (1.0-1.7); ALK PHOS 91 U/L (46-116); ALT (SGPT) 41 U/L (14-59); ANION GAP 8 (6-14); AST (SGOT) 18 U/L (15-37); BLOOD UREA NITROGEN 16 mg/dL (7-20); BUN/CREATININE RATIO 27 (6-20); CALCIUM 8.4 mg/dL (8.5-10.1); CARBON DIOXIDE 30 mmol/L (21-32); CHLORIDE 108 mmol/L (98-107); CREATININE 0.6 mg/dL (0.6-1.0); GFR 99.7; GLUCOSE 142 mg/dL (70-99); POTASSIUM 3.8 mmol/L (3.5-5.1); SODIUM 146 mmol/L (136-145); TOTAL BILIRUBIN 0.4 mg/dL (0.2-1.0); TOTAL PROTEIN 6.3 g/dL (6.4-8.2); VAL ACID 82 mcg/mL (50-100)
[2017-02-12] MEDS ORDERED: OLANZapine 5 MG TABLET PO ONE (12:00)
[2017-02-12 16:28] VITALS: BP 96/58
[2017-02-12] MEDS: MIRTAZAPINE 7.5 MG TABLET. PO SCH (20:13)
[2017-02-12] MEDS: ATORVASTATIN CALCIUM 20 MG TABLET PO SCH (20:13)
[2017-02-12] MEDS: OLANZapine 5 MG TABLET PO SCH (20:14)
--- NOTE | 2017-02-12 22:50 | PDOC ---
Exam Jeanmarie Demential Exam: Jeanmarie Note: Please also refer to the separate dictated note~for this date of service dictated separately.~Patient seen individually. Discussed the patient with Nursing staff reviewed the chart.~Reviewed interim history and current functioning. Reviewed vital signs,~Labs/ Radiology~and current medications noted below. Continue current treatment with the changes noted in the dictated addendum note Assessment: Vital Signs: Vital Signs Date Time Temp Pulse Resp B/P (MAP) Pulse Ox O2 Delivery O2 Flow Rate FiO2 02/12/17 16:28 98.4 79 16 96/58 (71) 97 02/11/17 17:05 Room Air I&O Intake and Output 02/13/17 07:00 Intake Total 1040 ml Balance 1040 ml Intake Oral 1040 ml # Voids 1 # Bowel Movements 1 Labs: Laboratory Tests Test 02/12/17 09:33 White Blood Count 6.1 x10^3/uL (4.0-11.0) Red Blood Count 4.63 x10^6/uL (3.50-5.40) Hemoglobin 14.3 g/dL (12.0-15.5) Hematocrit 42.6 % (36.0-47.0) Mean Corpuscular Volume 92 fL (79-100) Mean Corpuscular Hemoglobin 31 pg (25-35) Mean Corpuscular Hemoglobin Concent 34 g/dL (31-37) Red Cell Distribution Width 15.0 % (11.5-14.5) H Platelet Count 301 x10^3/uL (140-400) Neutrophils (%) (Auto) 74 % (31-73) H Lymphocytes (%) (Auto) 15 % (24-48) L Monocytes (%) (Auto) 6 % (0-9) Eosinophils (%) (Auto) 4 % (0-3) H Basophils (%) (Auto) 1 % (0-3) Neutrophils # (Auto) 4.5 x10^3uL (1.8-7.7) Lymphocytes # (Auto) 0.9 x10^3/uL (1.0-4.8) L Monocytes # (Auto) 0.4 x10^3/uL (0.0-1.1) Eosinophils # (Auto) 0.2 x10^3/uL (0.0-0.7) Basophils # (Auto) 0.0 x10^3/uL (0.0-0.2) Sodium Level 146 mmol/L (136-145) H Potassium Level 3.8 mmol/L (3.5-5.1) Chloride Level 108 mmol/L (98-107) H Carbon Dioxide Level 30 mmol/L (21-32) Anion Gap 8 (6-14) Blood Urea Nitrogen 16 mg/dL (7-20) Creatinine 0.6 mg/dL (0.6-1.0) Estimated GFR (Cockcroft-Gault) 99.7 BUN/Creatinine Ratio 27 (6-20) H Glucose Level 142 mg/dL (70-99) H Calcium Level 8.4 mg/dL (8.5-10.1) L Total Bilirubin 0.4 mg/dL (0.2-1.0) Aspartate Amino Transferase (AST) 18 U/L (15-37) Alanine Aminotransferase (ALT) 41 U/L (14-59) Alkaline Phosphatase 91 U/L (46-116) Total Protein 6.3 g/dL (6.4-8.2) L Albumin 3.6 g/dL (3.4-5.0) Albumin/Globulin Ratio 1.3 (1.0-1.7) Valproic Acid Level 82 mcg/mL (50-100) Valproic Acid Last Dose Date 02/11/17 Valproic Acid Last Dose Time 2100 Current Medications: Meds: Current Medications Lorazepam (Ativan) 0.5 mg 1X ONCE PO Last administered on 02/01/17 19:14; Start 02/01/17 at 19:15; Stop 02/01/17 at 19:16; Status DC Ceftriaxone Sodium (Rocephin Im) 1 gm 1X ONCE IM Last administered on 20:45; Start 02/01/17 at 20:30; Stop 02/01/17 at 20:31; Status DC Acetaminophen (Tylenol) 650 mg PRN Q6HRS PRN PO MILD PAIN / TEMP Last administered on 02/11/17 11:49; Start 02/01/17 at 23:15 Multi-Ingredient Ointment (Analgesic [place]) 1 rosita PRN QID PRN TP MUSCLE PAIN; Start 02/01/17 at 23:15 Al Hydroxide/Mg Hydroxide (Mylanta Plus Xs) 15 ml PRN AFTMEALHC PRN PO DYSPEPSIA; Start 02/01/17 at 23:15 Magnesium Hydroxide (Milk Of Magnesia) 2,400 mg PRN QHS PRN PO CONSTIPATION Last administered on 02/02/17 14:57; Start 02/01/17 at 23:15 Olanzapine (ZyPREXA) 5 mg HS PO Last administered on 02/12/17 20:14; Start at 21:00 Quetiapine Fumarate (SEROquel) 25 mg BID PO Last administered on 02/08/17 08: 42; Start 02/02/17 at 09:00; Stop 02/08/17 at 19:16; Status DC Sertraline HCl (Zoloft) 100 mg DAILY PO Last administered on 02/06/17 08:01; Start 02/02/17 at 09:00; Stop 02/06/17 at 18:56; Status DC Olanzapine (ZyPREXA) 5 mg 1X ONCE PO Last administered on 02/02/17 00:27; Start 02/02/17 at 00:30; Stop 02/02/17 at 00:31; Status DC Alprazolam (Xanax) 0.5 mg BID PO Last administered on 02/12/17 20:14; Start at 09:00 Lorazepam (Ativan) 0.5 mg PRN Q4HRS PRN PO ANXIETY / AGITATION Last administered on 02/02/17 14:57; Start 02/02/17 at 00:15; Stop 02/02/17 at 15:59 ; Status DC Levothyroxine Sodium (Synthroid) 112 mcg DAILY06 PO Last administered on 05:08; Start 02/02/17 at 10:00 Naproxen (Naprosyn) 500 mg BID PO Last administered on 02/12/17 20:14; Start 02/02/17 at 09:00 Atorvastatin Calcium (Lipitor) 40 mg QHS PO Last administered on 02/12/17 20: 13; Start 02/02/17 at 21:00 Mirtazapine (Remeron) 7.5 mg QHS PO Last administered on 02/12/17 20:13; Start 02/02/17 at 21:00 Olanzapine (ZyPREXA ZYDIS) 2.5 mg PRN Q2HR PRN PO PSYCHOSIS Last administered on 02/12/17 18:08; Start 02/02/17 at 15:45 Alprazolam (Xanax) 0.25 mg PRN Q2HR PRN PO ANXIETY / AGITATION Last administered on 02/12/17 20:32; Start 02/02/17 at 15:45 Docusate Sodium (Colace) 100 mg BID PO Last administered on 02/12/17 20:13; Start 02/02/17 at 21:00 Polyethylene Glycol (miraLAX) 17 gm DAILY PO Last administered on 02/12/17 08: 37; Start 02/03/17 at 09:00 Vitamin D (Vitamin D3) 50,000 unit WEEKLY PO Last administered on 02/10/17 08: 38; Start 02/10/17 at 09:00 Divalproex Sodium (Depakote Sprinkles) 125 mg TID@0900,1300,1700 PO Last administered on 02/06/17 16:46; Start 02/04/17 at 09:00; Stop 02/06/17 at 18:56 ; Status DC Divalproex Sodium (Depakote Sprinkles) 250 mg TID@0900,1300,1700 PO Last administered on 02/09/17 09:13; Start 02/07/17 at 09:00; Stop 02/09/17 at 13:03 ; Status DC Fluvoxamine Maleate (Luvox) 50 mg HS PO Last administered on 02/12/17 20:13; Start 02/06/17 at 21:00 Quetiapine Fumarate (SEROquel) 25 mg TID PO Last administered on 02/09/17 09: 16; Start 02/09/17 at 09:00; Stop 02/09/17 at 13:30; Status DC Divalproex Sodium (Depakote Sprinkles) 375 mg TID@0900,1300,1700 PO Last administered on 02/12/17 17:26; Start 02/09/17 at 13:00 Quetiapine Fumarate (SEROquel) 37.5 mg TID PO Last administered on 02/12/17 12 :55; Start 02/09/17 at 14:00; Stop 02/12/17 at 17:56; Status DC Olanzapine (ZyPREXA) 5 mg 1X ONCE PO Last administered on 02/12/17 11:57; Start 02/12/17 at 12:00; Stop 02/12/17 at 12:01; Status DC Quetiapine Fumarate (SEROquel) 50 mg TID PO Last administered on 02/12/17 20: 13; Start 02/12/17 at 21:00 Active Scripts Active Reported Atorvastatin Calcium 40 Mg Tablet 40 Mg PO QHS Naproxen 500 Mg Tablet 500 Mg PO BID Lorazepam 0.5 Mg Tablet 0.5 Mg PO PRN Q4HRS PRN Seroquel (Quetiapine Fumarate) 25 Mg Tablet 25 Mg PO BID Zoloft (Sertraline Hcl) 100 Mg Tablet 100 Mg PO DAILY Levothyroxine Sodium 112 Mcg Tablet 112 Mcg PO DAILYAC Olanzapine 5 Mg Tablet 5 Mg PO HS Alprazolam 0.5 Mg Tablet 0.5 Mg PO BID Diagnosis: Problems: (1) Anxiety disorder (2) Bipolar 1 disorder, mixed, moderate (3) Dementia in Alzheimer's disease with delusions (4) Dementia in Alzheimer's disease with depression (5) Dementia, vascular, with depression (6) Dementia, vascular, with delusions (7) Impulse control disorder ELEANOR BILLS MD Feb 12, 2017 22:50
[2017-02-13] MEDS: LEVOTHYROXINE 112 MCG TABLET PO SCH (02:05)
[2017-02-13] MEDS: ALPRAZolam 0.25 MG TABLET PO PRN ×2 (02:05→16:33)
[2017-02-13] MEDS: MAGNESIUM HYDROXIDE 2,400 MG/30 ML ORAL.SUSP. PO PRN (02:05)
[2017-02-13] MEDS: DIVALPROEX 125 MG CAP.SPRINK PO SCH ×3 (09:00→16:33)
[2017-02-13] MEDS: QUEtiapine 25 MG TABLET. PO SCH ×3 (09:00→19:32)
--- NOTE | 2017-02-13 09:16 | PN ---
DATE: 02/09/2017 This is a late entry 02/09/2017 covers elements, not covered in my initial note 02/09/2017. SUBJECTIVE: The patient was staffed at a treatment team meeting with the entire team morning of 02/09/2017 seen individually evening of 02/09/2017, she is yelling in the morning, better the rest of the day, on the SLUMS scale, she scores 2. REVIEW OF SYSTEMS: Ambulation impaired, in wheelchair. No CV, , pulmonary, eye, ENT system symptoms on review. MENTAL STATUS EXAM: Oriented to herself. Insight, judgment, recent and remote memory, attention, concentration, fund of knowledge poor, consistent with her diagnosis mentioned in my initial note. PLAN: Continue current psychotropics, Seroquel is 25 mg t.i.d. She continues to yell with marked mood lability. We will increase this to 37.5 mg 3 times a day, valproic acid level is 45, subtherapeutic, on Depakote 250 t.i.d., we will increase this to 375 t.i.d. Check labs level in 3 days, maintain the rest unchanged, reviewed drug contractions. Risk/benefit ratio favors no further change. ELEANOR BILLS MD DR: JAIME/meli JOB#: [id number] / [id number]
--- NOTE | 2017-02-13 09:16 | PN ---
DATE: 02/11/2017 PSYCHIATRIC PROGRESS NOTE This late entry for 02/11/2017 covers elements not covered in my initial note of 02/11/2017. SUBJECTIVE: I with the patient in the evening of 02/11/2017. The patient continued to have some repetitive screaming for help, yelling out, compliant with medications, less agitated than before. REVIEW OF SYSTEMS: Ambulation impaired, in a Broda chair. No CV, , pulmonary, eye, ENT system symptoms on review. MENTAL STATUS EXAM: Oriented to herself. Insight, judgment, recent and remote memory, attention, concentration, fund of knowledge poor, consistent with her diagnosis mentioned in my initial note. PLAN: Continue increased Depakote and Seroquel, follow labs level for the Depakote on 02/12/2017. Reviewed drug interactions, risk and benefit ratio favors no further change. MAN Aden BILLS MD DR: JAIME/meli JOB#: [id number] / [id number]
[2017-02-13] MEDS: DOCUSATE SODIUM 100 MG CAPSULE PO SCH ×2 (11:41→19:32)
[2017-02-13] MEDS: NAPROXEN 500 MG TABLET PO SCH ×2 (11:41→19:31)
[2017-02-13] MEDS: POLYETHYLENE GLYCOL 3350 17 GM PACKET. PO SCH (11:42)
[2017-02-13] MEDS: ALPRAZolam 0.5 MG TABLET PO SCH (11:42)
[2017-02-13 16:28] VITALS: BP 115/72
[2017-02-13] MEDS: MIRTAZAPINE 7.5 MG TABLET. PO SCH (19:31)
[2017-02-13] MEDS: ATORVASTATIN CALCIUM 20 MG TABLET PO SCH (19:31)
[2017-02-13] MEDS: OLANZapine 5 MG TABLET PO SCH (19:31)
[2017-02-13] MEDS: LORazepam 0.5 MG TABLET PO SCH (19:32)
--- NOTE | 2017-02-13 21:07 | PDOC ---
Exam Jeanmarie Demential Exam: Jeanmarie Note: Please also refer to the separate dictated note~for this date of service dictated separately.~Patient seen individually. Discussed the patient with Nursing staff reviewed the chart.~Reviewed interim history and current functioning. Reviewed vital signs,~Labs/ Radiology~and current medications noted below. Continue current treatment with the changes noted in the dictated addendum note Assessment: Vital Signs: Vital Signs Date Time Temp Pulse Resp B/P (MAP) Pulse Ox O2 Delivery O2 Flow Rate FiO2 02/13/17 16:28 97.5 89 18 115/72 (86) 95 02/11/17 17:05 Room Air I&O Intake and Output 02/14/17 07:00 Intake Total 540 ml Balance 540 ml Intake Oral 540 ml Current Medications: Meds: Current Medications Lorazepam (Ativan) 0.5 mg 1X ONCE PO Last administered on 02/01/17 19:14; Start 02/01/17 at 19:15; Stop 02/01/17 at 19:16; Status DC Ceftriaxone Sodium (Rocephin Im) 1 gm 1X ONCE IM Last administered on 20:45; Start 02/01/17 at 20:30; Stop 02/01/17 at 20:31; Status DC Acetaminophen (Tylenol) 650 mg PRN Q6HRS PRN PO MILD PAIN / TEMP Last administered on 02/11/17 11:49; Start 02/01/17 at 23:15 Multi-Ingredient Ointment (Analgesic [place]) 1 orsita PRN QID PRN TP MUSCLE PAIN; Start 02/01/17 at 23:15 Al Hydroxide/Mg Hydroxide (Mylanta Plus Xs) 15 ml PRN AFTMEALHC PRN PO DYSPEPSIA; Start 02/01/17 at 23:15 Magnesium Hydroxide (Milk Of Magnesia) 2,400 mg PRN QHS PRN PO CONSTIPATION Last administered on 02/13/17 02:05; Start 02/01/17 at 23:15 Olanzapine (ZyPREXA) 5 mg HS PO Last administered on 02/13/17 19:31; Start at 21:00 Quetiapine Fumarate (SEROquel) 25 mg BID PO Last administered on 02/08/17 08: 42; Start 02/02/17 at 09:00; Stop 02/08/17 at 19:16; Status DC Sertraline HCl (Zoloft) 100 mg DAILY PO Last administered on 02/06/17 08:01; Start 02/02/17 at 09:00; Stop 02/06/17 at 18:56; Status DC Olanzapine (ZyPREXA) 5 mg 1X ONCE PO Last administered on 02/02/17 00:27; Start 02/02/17 at 00:30; Stop 02/02/17 at 00:31; Status DC Alprazolam (Xanax) 0.5 mg BID PO Last administered on 02/13/17 11:42; Start at 09:00; Stop 02/13/17 at 18:35; Status DC Lorazepam (Ativan) 0.5 mg PRN Q4HRS PRN PO ANXIETY / AGITATION Last administered on 02/02/17 14:57; Start 02/02/17 at 00:15; Stop 02/02/17 at 15:59 ; Status DC Levothyroxine Sodium (Synthroid) 112 mcg DAILY06 PO Last administered on 02:05; Start 02/02/17 at 10:00 Naproxen (Naprosyn) 500 mg BID PO Last administered on 02/13/17 19:31; Start 02/02/17 at 09:00 Atorvastatin Calcium (Lipitor) 40 mg QHS PO Last administered on 02/13/17 19: 31; Start 02/02/17 at 21:00 Mirtazapine (Remeron) 7.5 mg QHS PO Last administered on 02/13/17 19:31; Start 02/02/17 at 21:00 Olanzapine (ZyPREXA ZYDIS) 2.5 mg PRN Q2HR PRN PO PSYCHOSIS Last administered on 02/13/17 02:05; Start 02/02/17 at 15:45 Alprazolam (Xanax) 0.25 mg PRN Q2HR PRN PO ANXIETY / AGITATION Last administered on 02/13/17 16:33; Start 02/02/17 at 15:45; Stop 02/13/17 at 18:35 ; Status DC Docusate Sodium (Colace) 100 mg BID PO Last administered on 02/13/17 19:32; Start 02/02/17 at 21:00 Polyethylene Glycol (miraLAX) 17 gm DAILY PO Last administered on 02/13/17 11: 42; Start 02/03/17 at 09:00 Vitamin D (Vitamin D3) 50,000 unit WEEKLY PO Last administered on 02/10/17 08: 38; Start 02/10/17 at 09:00 Divalproex Sodium (Depakote Sprinkles) 125 mg TID@0900,1300,1700 PO Last administered on 02/06/17 16:46; Start 02/04/17 at 09:00; Stop 02/06/17 at 18:56 ; Status DC Divalproex Sodium (Depakote Sprinkles) 250 mg TID@0900,1300,1700 PO Last administered on 02/09/17 09:13; Start 02/07/17 at 09:00; Stop 02/09/17 at 13:03 ; Status DC Fluvoxamine Maleate (Luvox) 50 mg HS PO Last administered on 02/13/17 19:32; Start 02/06/17 at 21:00 Quetiapine Fumarate (SEROquel) 25 mg TID PO Last administered on 02/09/17 09: 16; Start 02/09/17 at 09:00; Stop 02/09/17 at 13:30; Status DC Divalproex Sodium (Depakote Sprinkles) 375 mg TID@0900,1300,1700 PO Last administered on 02/13/17 16:33; Start 02/09/17 at 13:00 Quetiapine Fumarate (SEROquel) 37.5 mg TID PO Last administered on 02/12/17 12 :55; Start 02/09/17 at 14:00; Stop 02/12/17 at 17:56; Status DC Olanzapine (ZyPREXA) 5 mg 1X ONCE PO Last administered on 02/12/17 11:57; Start 02/12/17 at 12:00; Stop 02/12/17 at 12:01; Status DC Quetiapine Fumarate (SEROquel) 50 mg TID PO Last administered on 02/13/17 19: 32; Start 02/12/17 at 21:00 Lorazepam (Ativan) 0.5 mg PRN Q2HR PRN PO ANXIETY / AGITATION; Start 02/13/17 at 18:45 Lorazepam (Ativan) 0.5 mg BID PO Last administered on 02/13/17t 19:32; Start at 21:00 Active Scripts Active Reported Atorvastatin Calcium 40 Mg Tablet 40 Mg PO QHS Naproxen 500 Mg Tablet 500 Mg PO BID Lorazepam 0.5 Mg Tablet 0.5 Mg PO PRN Q4HRS PRN Seroquel (Quetiapine Fumarate) 25 Mg Tablet 25 Mg PO BID Zoloft (Sertraline Hcl) 100 Mg Tablet 100 Mg PO DAILY Levothyroxine Sodium 112 Mcg Tablet 112 Mcg PO DAILYAC Olanzapine 5 Mg Tablet 5 Mg PO HS Alprazolam 0.5 Mg Tablet 0.5 Mg PO BID Diagnosis: Problems: (1) Anxiety disorder (2) Bipolar 1 disorder, mixed, moderate (3) Dementia in Alzheimer's disease with delusions (4) Dementia in Alzheimer's disease with depression (5) Dementia, vascular, with depression (6) Dementia, vascular, with delusions (7) Impulse control disorder ELEANOR BILLS MD Feb 13, 2017 21:07
[2017-02-13 22:37] LABS: BACTERIA,URINE 0 /HPF (0-FEW); BILIRUBIN,URINE NEG (NEG); CLARITY,URINE HAZY; COLOR,URINE YELLOW; GLUCOSE,URINE NEG (NEG); NITRITE,URINE NEG (NEG); SQUAMOUS EPITHELIAL CELL,UR FEW /LPF; UROBILINOGEN,URINE 0.2 mg/dL (0.2 mg/dL)
[2017-02-13 22:39] LABS: AMORPHOUS SEDIMENT,UR PRESENT /HPF
[2017-02-13] MEDS: ACETAMINOPHEN 325 MG TABLET PO PRN (23:00)
[2017-02-13] MEDS: LORazepam 0.5 MG TABLET PO PRN (23:40)
[2017-02-14] MEDS: LEVOTHYROXINE 112 MCG TABLET PO SCH (05:08)
[2017-02-14 06:23] VITALS: BP 105/57
[2017-02-14] MEDS: DIVALPROEX 125 MG CAP.SPRINK PO SCH ×3 (09:36→16:42)
[2017-02-14] MEDS: DOCUSATE SODIUM 100 MG CAPSULE PO SCH ×2 (09:37→19:38)
[2017-02-14] MEDS: NAPROXEN 500 MG TABLET PO SCH ×2 (09:37→19:36)
[2017-02-14] MEDS: POLYETHYLENE GLYCOL 3350 17 GM PACKET. PO SCH (09:37)
[2017-02-14] MEDS: QUEtiapine 25 MG TABLET. PO SCH ×3 (09:37→19:38)
[2017-02-14] MEDS: LORazepam 0.5 MG TABLET PO SCH ×2 (09:39→19:40)
[2017-02-14] MEDS: LORazepam 0.5 MG TABLET PO PRN ×2 (12:48→17:43)
[2017-02-14 16:10] VITALS: BP 96/50
--- NOTE | 2017-02-14 18:11 | PN ---
DATE: 02/12/2017 PSYCHIATRIC PROGRESS NOTE This late entry 02/12/2017, covers elements not covered in my initial note of 02/12/2017. SUBJECTIVE: I met with the patient evening of 02/12/2017, the patient has continued to have significant yelling, mood lability, loud, disruptive at times, slid herself off the bed at one point. UA has been checked to rule out urinary tract infection and we will check a CBC, CMP as well. Sodium is elevated, chloride is elevated, valproic acid level on 02/12/2017 is 82. REVIEW OF SYSTEMS: Ambulation impaired. No CV, , pulmonary, eye, ENT system symptoms on review. She is not very forthcoming in responses, much of these I deduced due to her dementia. MENTAL STATUS EXAM: Oriented to herself. Insight, judgment, recent and remote memory, attention, concentration, fund of knowledge poor, consistent with her diagnosis as mentioned in my initial note. PLAN: Check her UA as noted, increase Seroquel from 37.5 mg t.i.d. to 50 mg t.i.d. Maintain the rest unchanged. Reviewed drug interactions, risk/benefit ratio favors no further change at this time. ELEANOR BILLS MD DR: JAIME/meli JOB#: [id number] / [id number]
[2017-02-14] MEDS: MIRTAZAPINE 7.5 MG TABLET. PO SCH (19:36)
[2017-02-14] MEDS: ATORVASTATIN CALCIUM 20 MG TABLET PO SCH (19:36)
[2017-02-14] MEDS: traZODone 50 MG TABLET. PO SCH ×2 (19:39→21:00)
--- NOTE | 2017-02-14 21:00 | PDOC ---
Exam Jeanmarie Demential Exam: Jeanmarie Note: Please also refer to the separate dictated note~for this date of service dictated separately.~Patient seen individually. Discussed the patient with Nursing staff reviewed the chart.~Reviewed interim history and current functioning. Reviewed vital signs,~Labs/ Radiology~and current medications noted below. Continue current treatment with the changes noted in the dictated addendum note Assessment: Vital Signs: Vital Signs Date Time Temp Pulse Resp B/P (MAP) Pulse Ox O2 Delivery O2 Flow Rate FiO2 02/14/17 16:10 97.5 77 16 96/50 (65) 97 02/11/17 17:05 Room Air I&O Intake and Output 02/15/17 07:00 Intake Total 480 ml Balance 480 ml Intake Oral 480 ml # Bowel Movements 1 Current Medications: Meds: Current Medications Lorazepam (Ativan) 0.5 mg 1X ONCE PO Last administered on 02/01/17 19:14; Start 02/01/17 at 19:15; Stop 02/01/17 at 19:16; Status DC Ceftriaxone Sodium (Rocephin Im) 1 gm 1X ONCE IM Last administered on 20:45; Start 02/01/17 at 20:30; Stop 02/01/17 at 20:31; Status DC Acetaminophen (Tylenol) 650 mg PRN Q6HRS PRN PO MILD PAIN / TEMP Last administered on 02/13/17 23:00; Start 02/01/17 at 23:15 Multi-Ingredient Ointment (Analgesic [place]) 1 rosita PRN QID PRN TP MUSCLE PAIN; Start 02/01/17 at 23:15 Al Hydroxide/Mg Hydroxide (Mylanta Plus Xs) 15 ml PRN AFTMEALHC PRN PO DYSPEPSIA; Start 02/01/17 at 23:15 Magnesium Hydroxide (Milk Of Magnesia) 2,400 mg PRN QHS PRN PO CONSTIPATION Last administered on 02/13/17 02:05; Start 02/01/17 at 23:15 Olanzapine (ZyPREXA) 5 mg HS PO Last administered on 02/13/17 19:31; Start at 21:00; Stop 02/14/17 at 18:51; Status DC Quetiapine Fumarate (SEROquel) 25 mg BID PO Last administered on 02/08/17 08: 42; Start 02/02/17 at 09:00; Stop 02/08/17 at 19:16; Status DC Sertraline HCl (Zoloft) 100 mg DAILY PO Last administered on 02/06/17 08:01; Start 02/02/17 at 09:00; Stop 02/06/17 at 18:56; Status DC Olanzapine (ZyPREXA) 5 mg 1X ONCE PO Last administered on 02/02/17 00:27; Start 02/02/17 at 00:30; Stop 02/02/17 at 00:31; Status DC Alprazolam (Xanax) 0.5 mg BID PO Last administered on 02/13/17 11:42; Start at 09:00; Stop 02/13/17 at 18:35; Status DC Lorazepam (Ativan) 0.5 mg PRN Q4HRS PRN PO ANXIETY / AGITATION Last administered on 02/02/17 14:57; Start 02/02/17 at 00:15; Stop 02/02/17 at 15:59 ; Status DC Levothyroxine Sodium (Synthroid) 112 mcg DAILY06 PO Last administered on 05:08; Start 02/02/17 at 10:00 Naproxen (Naprosyn) 500 mg BID PO Last administered on 02/14/17 19:36; Start 02/02/17 at 09:00 Atorvastatin Calcium (Lipitor) 40 mg QHS PO Last administered on 02/14/17 19: 36; Start 02/02/17 at 21:00 Mirtazapine (Remeron) 7.5 mg QHS PO Last administered on 02/14/17 19:36; Start 02/02/17 at 21:00 Olanzapine (ZyPREXA ZYDIS) 2.5 mg PRN Q2HR PRN PO PSYCHOSIS Last administered on 02/13/17 02:05; Start 02/02/17 at 15:45 Alprazolam (Xanax) 0.25 mg PRN Q2HR PRN PO ANXIETY / AGITATION Last administered on 02/13/17 16:33; Start 02/02/17 at 15:45; Stop 02/13/17 at 18:35 ; Status DC Docusate Sodium (Colace) 100 mg BID PO Last administered on 02/14/17 19:38; Start 02/02/17 at 21:00 Polyethylene Glycol (miraLAX) 17 gm DAILY PO Last administered on 02/14/17 09: 37; Start 02/03/17 at 09:00 Vitamin D (Vitamin D3) 50,000 unit WEEKLY PO Last administered on 02/10/17 08: 38; Start 02/10/17 at 09:00 Divalproex Sodium (Depakote Sprinkles) 125 mg TID@0900,1300,1700 PO Last administered on 02/06/17 16:46; Start 02/04/17 at 09:00; Stop 02/06/17 at 18:56 ; Status DC Divalproex Sodium (Depakote Sprinkles) 250 mg TID@0900,1300,1700 PO Last administered on 02/09/17 09:13; Start 02/07/17 at 09:00; Stop 02/09/17 at 13:03 ; Status DC Fluvoxamine Maleate (Luvox) 50 mg HS PO Last administered on 02/13/17 19:32; Start 02/06/17 at 21:00; Stop 02/14/17 at 18:51; Status DC Quetiapine Fumarate (SEROquel) 25 mg TID PO Last administered on 02/09/17 09: 16; Start 02/09/17 at 09:00; Stop 02/09/17 at 13:30; Status DC Divalproex Sodium (Depakote Sprinkles) 375 mg TID@0900,1300,1700 PO Last administered on 02/14/17 16:42; Start 02/09/17 at 13:00 Quetiapine Fumarate (SEROquel) 37.5 mg TID PO Last administered on 02/12/17 12 :55; Start 02/09/17 at 14:00; Stop 02/12/17 at 17:56; Status DC Olanzapine (ZyPREXA) 5 mg 1X ONCE PO Last administered on 02/12/17 11:57; Start 02/12/17 at 12:00; Stop 02/12/17 at 12:01; Status DC Quetiapine Fumarate (SEROquel) 50 mg TID PO Last administered on 9/26/17at 19: 38; Start 02/12/17 at 21:00 Lorazepam (Ativan) 0.5 mg PRN Q2HR PRN PO ANXIETY / AGITATION Last administered on 02/14/17 17:43; Start 02/13/17 at 18:45 Lorazepam (Ativan) 0.5 mg BID PO Last administered on 02/14/17 19:40; Start at 21:00 Fluvoxamine Maleate (Luvox) 75 mg HS PO Last administered on 02/14/17 19:38; Start 02/14/17 at 21:00 Trazodone HCl (Desyrel) 12.5 mg TID PO Last administered on 02/14/17 19:39; Start 02/14/17 at 19:00 Active Scripts Active Reported Atorvastatin Calcium 40 Mg Tablet 40 Mg PO QHS Naproxen 500 Mg Tablet 500 Mg PO BID Lorazepam 0.5 Mg Tablet 0.5 Mg PO PRN Q4HRS PRN Seroquel (Quetiapine Fumarate) 25 Mg Tablet 25 Mg PO BID Zoloft (Sertraline Hcl) 100 Mg Tablet 100 Mg PO DAILY Levothyroxine Sodium 112 Mcg Tablet 112 Mcg PO DAILYAC Olanzapine 5 Mg Tablet 5 Mg PO HS Alprazolam 0.5 Mg Tablet 0.5 Mg PO BID Diagnosis: Problems: (1) Anxiety disorder (2) Bipolar 1 disorder, mixed, moderate (3) Dementia in Alzheimer's disease with delusions (4) Dementia in Alzheimer's disease with depression (5) Dementia, vascular, with depression (6) Dementia, vascular, with delusions (7) Impulse control disorder ELEANOR BILLS MD Feb 14, 2017 21:00
[2017-02-15] MEDS: LORazepam 0.5 MG TABLET PO PRN (03:48)
[2017-02-15] MEDS: LEVOTHYROXINE 112 MCG TABLET PO SCH (04:49)
[2017-02-15 06:27] VITALS: BP 104/52
[2017-02-15] MEDS: DIVALPROEX 125 MG CAP.SPRINK PO SCH ×3 (09:08→17:27)
[2017-02-15] MEDS: QUEtiapine 25 MG TABLET. PO SCH ×3 (09:08→19:11)
[2017-02-15] MEDS: LORazepam 0.5 MG TABLET PO SCH ×2 (09:10→19:13)
[2017-02-15] MEDS: traZODone 50 MG TABLET. PO SCH ×3 (09:10→17:27)
[2017-02-15] MEDS: DOCUSATE SODIUM 100 MG CAPSULE PO SCH ×2 (09:10→19:13)
[2017-02-15] MEDS: POLYETHYLENE GLYCOL 3350 17 GM PACKET. PO SCH (09:11)
[2017-02-15] MEDS: NAPROXEN 500 MG TABLET PO SCH ×2 (09:11→19:10)
[2017-02-15 16:18] VITALS: BP 126/71
--- NOTE | 2017-02-15 17:21 | PN ---
DATE: 02/13/2017 PSYCHIATRIC PROGRESS NOTE This is a late entry 02/13/2017, covers elements not covered in my initial note of 02/13/2017. SUBJECTIVE: Nursing staff had called me earlier in the day because of the patient's agitation, mood lability, yelling, which has persisted much of the day. She slept until 11:00 a.m. morning of 02/13/2017. We are still trying to get a UA in case she has a UTI, worsening mood lability. REVIEW OF SYSTEMS: Ambulation impaired, in Broda chair. No CV, , pulmonary, eye, ENT system symptoms on review. Reliability poor. MENTAL STATUS EXAM: Oriented to herself. Insight, judgment, recent and remote memory, attention, concentration, fund of knowledge poor, consistent with her diagnoses mentioned in my initial note. PLAN: The nursing staff observed Xanax has little benefit, we will change it to Ativan, both scheduled and p.r.n. Maintain rest of the psychotropics, Luvox, Depakote, Seroquel, Remeron, Zyprexa p.r.n. and may consider adding scheduled trazodone during the day for anxiety, agitation, but we will see how she does over the next day or so with the Xanax changed to Ativan, then decide. Valproic acid level therapeutic at 82. Review drug interactions. Risk/benefit ratio favors no further change. MAN Aden BILLS MD DR: JAIME/meli JOB#: [id number] / [id number]
[2017-02-15] MEDS: MIRTAZAPINE 7.5 MG TABLET. PO SCH (19:10)
[2017-02-15] MEDS: ATORVASTATIN CALCIUM 20 MG TABLET PO SCH (19:11)
--- NOTE | 2017-02-15 20:53 | PDOC ---
Exam Jeanmarie Demential Exam: Jeanmarie Note: Please also refer to the separate dictated note~for this date of service dictated separately.~Patient seen individually. Discussed the patient with Nursing staff reviewed the chart.~Reviewed interim history and current functioning. Reviewed vital signs,~Labs/ Radiology~and current medications noted below. Continue current treatment with the changes noted in the dictated addendum note Assessment: Vital Signs: Vital Signs Date Time Temp Pulse Resp B/P (MAP) Pulse Ox O2 Delivery O2 Flow Rate FiO2 02/15/17 16:18 97.6 79 18 126/71 (89) 96 02/11/17 17:05 Room Air I&O Intake and Output 02/16/17 06:59 Intake Total 480 ml Balance 480 ml Intake Oral 480 ml Current Medications: Meds: Current Medications Lorazepam (Ativan) 0.5 mg 1X ONCE PO Last administered on 02/01/17 19:14; Start 02/01/17 at 19:15; Stop 02/01/17 at 19:16; Status DC Ceftriaxone Sodium (Rocephin Im) 1 gm 1X ONCE IM Last administered on 20:45; Start 02/01/17 at 20:30; Stop 02/01/17 at 20:31; Status DC Acetaminophen (Tylenol) 650 mg PRN Q6HRS PRN PO MILD PAIN / TEMP Last administered on 02/13/17 23:00; Start 02/01/17 at 23:15 Multi-Ingredient Ointment (Analgesic [place]) 1 rosita PRN QID PRN TP MUSCLE PAIN; Start 02/01/17 at 23:15 Al Hydroxide/Mg Hydroxide (Mylanta Plus Xs) 15 ml PRN AFTMEALHC PRN PO DYSPEPSIA; Start 02/01/17 at 23:15 Magnesium Hydroxide (Milk Of Magnesia) 2,400 mg PRN QHS PRN PO CONSTIPATION Last administered on 02/13/17 02:05; Start 02/01/17 at 23:15 Olanzapine (ZyPREXA) 5 mg HS PO Last administered on 02/13/17 19:31; Start at 21:00; Stop 02/14/17 at 18:51; Status DC Quetiapine Fumarate (SEROquel) 25 mg BID PO Last administered on 02/08/17 08: 42; Start 02/02/17 at 09:00; Stop 02/08/17 at 19:16; Status DC Sertraline HCl (Zoloft) 100 mg DAILY PO Last administered on 02/06/17 08:01; Start 02/02/17 at 09:00; Stop 02/06/17 at 18:56; Status DC Olanzapine (ZyPREXA) 5 mg 1X ONCE PO Last administered on 02/02/17 00:27; Start 02/02/17 at 00:30; Stop 02/02/17 at 00:31; Status DC Alprazolam (Xanax) 0.5 mg BID PO Last administered on 02/13/17 11:42; Start at 09:00; Stop 02/13/17 at 18:35; Status DC Lorazepam (Ativan) 0.5 mg PRN Q4HRS PRN PO ANXIETY / AGITATION Last administered on 02/02/17 14:57; Start 02/02/17 at 00:15; Stop 02/02/17 at 15:59 ; Status DC Levothyroxine Sodium (Synthroid) 112 mcg DAILY06 PO Last administered on 04:49; Start 02/02/17 at 10:00 Naproxen (Naprosyn) 500 mg BID PO Last administered on 02/15/17 19:10; Start 02/02/17 at 09:00 Atorvastatin Calcium (Lipitor) 40 mg QHS PO Last administered on 02/15/17 19: 11; Start 02/02/17 at 21:00 Mirtazapine (Remeron) 7.5 mg QHS PO Last administered on 02/15/17 19:10; Start 02/02/17 at 21:00 Olanzapine (ZyPREXA ZYDIS) 2.5 mg PRN Q2HR PRN PO PSYCHOSIS Last administered on 02/15/17 04:49; Start 02/02/17 at 15:45 Alprazolam (Xanax) 0.25 mg PRN Q2HR PRN PO ANXIETY / AGITATION Last administered on 02/13/17 16:33; Start 02/02/17 at 15:45; Stop 02/13/17 at 18:35 ; Status DC Docusate Sodium (Colace) 100 mg BID PO Last administered on 02/15/17 19:13; Start 02/02/17 at 21:00 Polyethylene Glycol (miraLAX) 17 gm DAILY PO Last administered on 02/15/17 09: 11; Start 02/03/17 at 09:00 Vitamin D (Vitamin D3) 50,000 unit WEEKLY PO Last administered on 02/10/17 08: 38; Start 02/10/17 at 09:00 Divalproex Sodium (Depakote Sprinkles) 125 mg TID@0900,1300,1700 PO Last administered on 02/06/17 16:46; Start 02/04/17 at 09:00; Stop 02/06/17 at 18:56 ; Status DC Divalproex Sodium (Depakote Sprinkles) 250 mg TID@0900,1300,1700 PO Last administered on 02/09/17 09:13; Start 02/07/17 at 09:00; Stop 02/09/17 at 13:03 ; Status DC Fluvoxamine Maleate (Luvox) 50 mg HS PO Last administered on 02/13/17 19:32; Start 02/06/17 at 21:00; Stop 02/14/17 at 18:51; Status DC Quetiapine Fumarate (SEROquel) 25 mg TID PO Last administered on 02/09/17 09: 16; Start 02/09/17 at 09:00; Stop 02/09/17 at 13:30; Status DC Divalproex Sodium (Depakote Sprinkles) 375 mg TID@0900,1300,1700 PO Last administered on 02/15/17 17:27; Start 02/09/17 at 13:00 Quetiapine Fumarate (SEROquel) 37.5 mg TID PO Last administered on 02/12/17 12 :55; Start 02/09/17 at 14:00; Stop 02/12/17 at 17:56; Status DC Olanzapine (ZyPREXA) 5 mg 1X ONCE PO Last administered on 02/12/17 11:57; Start 02/12/17 at 12:00; Stop 02/12/17 at 12:01; Status DC Quetiapine Fumarate (SEROquel) 50 mg TID PO Last administered on 02/15/17 19: 11; Start 02/12/17 at 21:00 Lorazepam (Ativan) 0.5 mg PRN Q2HR PRN PO ANXIETY / AGITATION Last administered on 02/15/17 03:48; Start 02/13/17 at 18:45 Lorazepam (Ativan) 0.5 mg BID PO Last administered on 02/15/17 19:13; Start at 21:00 Fluvoxamine Maleate (Luvox) 75 mg HS PO Last administered on 02/15/17 19:11; Start 02/14/17 at 21:00 Trazodone HCl (Desyrel) 12.5 mg TID PO Last administered on 02/14/17 19:39; Start 02/14/17 at 19:00; Stop 02/14/17 at 21:12; Status DC Trazodone HCl (Desyrel) 12.5 mg TIDWMEALS PO Last administered on 02/15/17 17: 27; Start 02/15/17 at 08:00 Active Scripts Active Reported Atorvastatin Calcium 40 Mg Tablet 40 Mg PO QHS Naproxen 500 Mg Tablet 500 Mg PO BID Lorazepam 0.5 Mg Tablet 0.5 Mg PO PRN Q4HRS PRN Seroquel (Quetiapine Fumarate) 25 Mg Tablet 25 Mg PO BID Zoloft (Sertraline Hcl) 100 Mg Tablet 100 Mg PO DAILY Levothyroxine Sodium 112 Mcg Tablet 112 Mcg PO DAILYAC Olanzapine 5 Mg Tablet 5 Mg PO HS Alprazolam 0.5 Mg Tablet 0.5 Mg PO BID Diagnosis: Problems: (1) Anxiety disorder (2) Bipolar 1 disorder, mixed, moderate (3) Dementia in Alzheimer's disease with delusions (4) Dementia in Alzheimer's disease with depression (5) Dementia, vascular, with depression (6) Dementia, vascular, with delusions (7) Impulse control disorder ELEANOR BILLS MD Feb 15, 2017 20:53
--- NOTE | 2017-02-16 04:44 | PN ---
DATE: 02/14/2017 This late entry for 02/14/2017 covers elements not covered in my initial note of 02/14/2017. SUBJECTIVE: I met with the patient the evening of 02/14/2017. The patient has had a very difficult day. She has been yelling almost constantly loud, repetitive, disruptive, very disconcerting for the entire unit environment. She is very repetitive. She was seeing a girl responding to this in the morning, hallucinating, repetitive "I have a knife, I have a knife." She has received various PRNs, previous evening 2345 and 12:38 a.m. and 1745 on 02/14/2017. REVIEW OF SYSTEMS: Ambulation impaired, in a Broda chair. No CV, , pulmonary, eye, ENT system symptoms on review. Reliability poor. MENTAL STATUS EXAM: Oriented to herself. Insight, judgment, recent and remote memory, attention, concentration, fund of knowledge poor, consistent with her diagnosis mentioned in my initial note. PLAN: Increase Luvox from 50 mg at bedtime to 75 mg at bedtime. Start trazodone 12.5 mg 3 times a day for her mood and anxiety symptoms. Continue rest of the psychotropics carefully, reviewed the drug interactions. Risk/benefit ratio favors no further change. We will adjust further as clinically indicated. ELEANOR BILLS MD DR: JAIME/meli JOB#: [id number] / [id number]
[2017-02-16] MEDS: LEVOTHYROXINE 112 MCG TABLET PO SCH (05:48)
[2017-02-16 06:10] VITALS: BP 112/69
[2017-02-16] MEDS: DOCUSATE SODIUM 100 MG CAPSULE PO SCH ×2 (08:00→21:00)
[2017-02-16] MEDS: POLYETHYLENE GLYCOL 3350 17 GM PACKET. PO SCH (08:01)
[2017-02-16] MEDS: NAPROXEN 500 MG TABLET PO SCH ×2 (08:01→21:00)
[2017-02-16] MEDS: traZODone 50 MG TABLET. PO SCH ×4 (08:01→17:00)
[2017-02-16] MEDS: QUEtiapine 25 MG TABLET. PO SCH ×3 (08:01→21:00)
[2017-02-16] MEDS: DIVALPROEX 125 MG CAP.SPRINK PO SCH ×4 (08:01→17:00)
[2017-02-16] MEDS: LORazepam 0.5 MG TABLET PO SCH ×2 (08:04→21:00)
[2017-02-16 11:03] LABS: BASO % 0 % (0-3); EOS # 0.2 x10^3/uL (0.0-0.7); EOS % 3 % (0-3); HEMATOCRIT 39.5 % (36.0-47.0); HEMOGLOBIN 13.2 g/dL (12.0-15.5); LYMPH % 13 % (24-48); MEAN CORPUSCULAR HEMOGLOBIN 31 pg (25-35); MEAN CORPUSCULAR HGB CONC 33 g/dL (31-37); MEAN CORPUSCULAR VOLUME 92 fL (79-100); MONO # 0.9 x10^3/uL (0.0-1.1); MONO % 11 % (0-9); NEUT # 5.7 x10^3uL (1.8-7.7); NEUT % 73 % (31-73); PLATELET COUNT 208 x10^3/uL (140-400); RED BLOOD COUNT 4.31 x10^6/uL (3.50-5.40); RED CELL DISTRIBUTION WIDTH 15.2 % (11.5-14.5); WHITE BLOOD COUNT 7.8 x10^3/uL (4.0-11.0)
[2017-02-16 11:20] LABS: ALBUMIN 3.3 g/dL (3.4-5.0); ALBUMIN/GLOBULIN RATIO 1.1 (1.0-1.7); CALCIUM 8.7 mg/dL (8.5-10.1); CREATININE 0.6 mg/dL (0.6-1.0); GFR 99.7; MAGNESIUM 2.3 mg/dL (1.8-2.4); TOTAL BILIRUBIN 0.3 mg/dL (0.2-1.0); TOTAL PROTEIN 6.4 g/dL (6.4-8.2)
--- NOTE | 2017-02-16 13:19 | RAD ---
EXAM: Chest one view. HISTORY: Aspiration. COMPARISON: None. FINDINGS: A frontal view of the chest is obtained. There is no airspace opacity in the left base indicating atelectasis or pneumonia. The left hemidiaphragm is mildly elevated. There is no pneumothorax or pleural effusion. The heart is not enlarged. IMPRESSION: 1. Left lower lobe atelectasis or pneumonia. Correlate with older studies to assess chronicity. Follow-up to resolution is suggested if acute.
[2017-02-16 16:15] VITALS: BP 151/75
--- NOTE | 2017-02-16 20:50 | PDOC ---
Exam Jeanmarie Demential Exam: Jeanmarie Note: Please also refer to the separate dictated note~for this date of service dictated separately.~Patient seen individually. Discussed the patient with Nursing staff reviewed the chart.~Reviewed interim history and current functioning. Reviewed vital signs,~Labs/ Radiology~and current medications noted below. Continue current treatment with the changes noted in the dictated addendum note Assessment: Vital Signs: Vital Signs Date Time Temp Pulse Resp B/P (MAP) Pulse Ox O2 Delivery O2 Flow Rate FiO2 02/16/17 16:15 98.3 70 20 151/75 (100) 94 Room Air I&O Intake and Output 02/17/17 07:00 Intake Total 360 ml Balance 360 ml Intake Oral 360 ml Labs: Laboratory Tests Test 02/16/17 10:55 White Blood Count 7.8 x10^3/uL (4.0-11.0) Red Blood Count 4.31 x10^6/uL (3.50-5.40) Hemoglobin 13.2 g/dL (12.0-15.5) Hematocrit 39.5 % (36.0-47.0) Mean Corpuscular Volume 92 fL (79-100) Mean Corpuscular Hemoglobin 31 pg (25-35) Mean Corpuscular Hemoglobin Concent 33 g/dL (31-37) Red Cell Distribution Width 15.2 % (11.5-14.5) H Platelet Count 208 x10^3/uL (140-400) Neutrophils (%) (Auto) 73 % (31-73) Lymphocytes (%) (Auto) 13 % (24-48) L Monocytes (%) (Auto) 11 % (0-9) H Eosinophils (%) (Auto) 3 % (0-3) Basophils (%) (Auto) 0 % (0-3) Neutrophils # (Auto) 5.7 x10^3uL (1.8-7.7) Lymphocytes # (Auto) 1.0 x10^3/uL (1.0-4.8) Monocytes # (Auto) 0.9 x10^3/uL (0.0-1.1) Eosinophils # (Auto) 0.2 x10^3/uL (0.0-0.7) Basophils # (Auto) 0.0 x10^3/uL (0.0-0.2) Sodium Level 144 mmol/L (136-145) Potassium Level 4.0 mmol/L (3.5-5.1) Chloride Level 107 mmol/L (98-107) Carbon Dioxide Level 29 mmol/L (21-32) Anion Gap 8 (6-14) Blood Urea Nitrogen 14 mg/dL (7-20) Creatinine 0.6 mg/dL (0.6-1.0) Estimated GFR (Cockcroft-Gault) 99.7 BUN/Creatinine Ratio 23 (6-20) H Glucose Level 92 mg/dL (70-99) Calcium Level 8.7 mg/dL (8.5-10.1) Magnesium Level 2.3 mg/dL (1.8-2.4) Total Bilirubin 0.3 mg/dL (0.2-1.0) Aspartate Amino Transferase (AST) 17 U/L (15-37) Alanine Aminotransferase (ALT) 27 U/L (14-59) Alkaline Phosphatase 95 U/L (46-116) Total Protein 6.4 g/dL (6.4-8.2) Albumin 3.3 g/dL (3.4-5.0) L Albumin/Globulin Ratio 1.1 (1.0-1.7) Current Medications: Meds: Current Medications Lorazepam (Ativan) 0.5 mg 1X ONCE PO Last administered on 02/01/17 19:14; Start 02/01/17 at 19:15; Stop 02/01/17 at 19:16; Status DC Ceftriaxone Sodium (Rocephin Im) 1 gm 1X ONCE IM Last administered on 20:45; Start 02/01/17 at 20:30; Stop 02/01/17 at 20:31; Status DC Acetaminophen (Tylenol) 650 mg PRN Q6HRS PRN PO MILD PAIN / TEMP Last administered on 02/13/17 23:00; Start 02/01/17 at 23:15 Multi-Ingredient Ointment (Analgesic [place]) 1 rosita PRN QID PRN TP MUSCLE PAIN; Start 02/01/17 at 23:15 Al Hydroxide/Mg Hydroxide (Mylanta Plus Xs) 15 ml PRN AFTMEALHC PRN PO DYSPEPSIA; Start 02/01/17 at 23:15 Magnesium Hydroxide (Milk Of Magnesia) 2,400 mg PRN QHS PRN PO CONSTIPATION Last administered on 02/13/17 02:05; Start 02/01/17 at 23:15 Olanzapine (ZyPREXA) 5 mg HS PO Last administered on 02/13/17 19:31; Start at 21:00; Stop 02/14/17 at 18:51; Status DC Quetiapine Fumarate (SEROquel) 25 mg BID PO Last administered on 02/08/17 08: 42; Start 02/02/17 at 09:00; Stop 02/08/17 at 19:16; Status DC Sertraline HCl (Zoloft) 100 mg DAILY PO Last administered on 02/06/17 08:01; Start 02/02/17 at 09:00; Stop 02/06/17 at 18:56; Status DC Olanzapine (ZyPREXA) 5 mg 1X ONCE PO Last administered on 02/02/17 00:27; Start 02/02/17 at 00:30; Stop 02/02/17 at 00:31; Status DC Alprazolam (Xanax) 0.5 mg BID PO Last administered on 02/13/17 11:42; Start at 09:00; Stop 02/13/17 at 18:35; Status DC Lorazepam (Ativan) 0.5 mg PRN Q4HRS PRN PO ANXIETY / AGITATION Last administered on 02/02/17 14:57; Start 02/02/17 at 00:15; Stop 02/02/17 at 15:59 ; Status DC Levothyroxine Sodium (Synthroid) 112 mcg DAILY06 PO Last administered on 05:48; Start 02/02/17 at 10:00 Naproxen (Naprosyn) 500 mg BID PO Last administered on 02/16/17 08:01; Start 02/02/17 at 09:00 Atorvastatin Calcium (Lipitor) 40 mg QHS PO Last administered on 02/15/17 19: 11; Start 02/02/17 at 21:00 Mirtazapine (Remeron) 7.5 mg QHS PO Last administered on 02/15/17 19:10; Start 02/02/17 at 21:00 Olanzapine (ZyPREXA ZYDIS) 2.5 mg PRN Q2HR PRN PO PSYCHOSIS Last administered on 02/16/17 15:08; Start 02/02/17 at 15:45 Alprazolam (Xanax) 0.25 mg PRN Q2HR PRN PO ANXIETY / AGITATION Last administered on 02/13/17 16:33; Start 02/02/17 at 15:45; Stop 02/13/17 at 18:35 ; Status DC Docusate Sodium (Colace) 100 mg BID PO Last administered on 02/16/17 08:00; Start 02/02/17 at 21:00 Polyethylene Glycol (miraLAX) 17 gm DAILY PO Last administered on 02/16/17 08: 01; Start 02/03/17 at 09:00 Vitamin D (Vitamin D3) 50,000 unit WEEKLY PO Last administered on 02/10/17 08: 38; Start 02/10/17 at 09:00 Divalproex Sodium (Depakote Sprinkles) 125 mg TID@0900,1300,1700 PO Last administered on 02/06/17 16:46; Start 02/04/17 at 09:00; Stop 02/06/17 at 18:56 ; Status DC Divalproex Sodium (Depakote Sprinkles) 250 mg TID@0900,1300,1700 PO Last administered on 02/09/17 09:13; Start 02/07/17 at 09:00; Stop 02/09/17 at 13:03 ; Status DC Fluvoxamine Maleate (Luvox) 50 mg HS PO Last administered on 02/13/17 19:32; Start 02/06/17 at 21:00; Stop 02/14/17 at 18:51; Status DC Quetiapine Fumarate (SEROquel) 25 mg TID PO Last administered on 02/09/17 09: 16; Start 02/09/17 at 09:00; Stop 02/09/17 at 13:30; Status DC Divalproex Sodium (Depakote Sprinkles) 375 mg TID@0900,1300,1700 PO Last administered on 02/16/17 08:01; Start 02/09/17 at 13:00; Stop 02/16/17 at 19:13 ; Status DC Quetiapine Fumarate (SEROquel) 37.5 mg TID PO Last administered on 02/12/17 12 :55; Start 02/09/17 at 14:00; Stop 02/12/17 at 17:56; Status DC Olanzapine (ZyPREXA) 5 mg 1X ONCE PO Last administered on 02/12/17 11:57; Start 02/12/17 at 12:00; Stop 02/12/17 at 12:01; Status DC Quetiapine Fumarate (SEROquel) 50 mg TID PO Last administered on 02/16/17 15: 08; Start 02/12/17 at 21:00 Lorazepam (Ativan) 0.5 mg PRN Q2HR PRN PO ANXIETY / AGITATION Last administered on 02/15/17 03:48; Start 02/13/17 at 18:45 Lorazepam (Ativan) 0.5 mg BID PO Last administered on 02/16/17 08:04; Start at 21:00 Fluvoxamine Maleate (Luvox) 75 mg HS PO Last administered on 02/15/17 19:11; Start 02/14/17 at 21:00; Stop 02/16/17 at 22:00 Trazodone HCl (Desyrel) 12.5 mg TID PO Last administered on 02/14/17 19:39; Start 02/14/17 at 19:00; Stop 02/14/17 at 21:12; Status DC Trazodone HCl (Desyrel) 12.5 mg TIDWMEALS PO Last administered on 02/16/17 08: 01; Start 02/15/17 at 08:00 Fluvoxamine Maleate (Luvox) 100 mg HS PO ; Start 02/16/17 at 21:00 Active Scripts Active Reported Atorvastatin Calcium 40 Mg Tablet 40 Mg PO QHS Naproxen 500 Mg Tablet 500 Mg PO BID Lorazepam 0.5 Mg Tablet 0.5 Mg PO PRN Q4HRS PRN Seroquel (Quetiapine Fumarate) 25 Mg Tablet 25 Mg PO BID Zoloft (Sertraline Hcl) 100 Mg Tablet 100 Mg PO DAILY Levothyroxine Sodium 112 Mcg Tablet 112 Mcg PO DAILYAC Olanzapine 5 Mg Tablet 5 Mg PO HS Alprazolam 0.5 Mg Tablet 0.5 Mg PO BID Diagnosis: Problems: (1) Anxiety disorder (2) Bipolar 1 disorder, mixed, moderate (3) Dementia in Alzheimer's disease with delusions (4) Dementia in Alzheimer's disease with depression (5) Dementia, vascular, with depression (6) Dementia, vascular, with delusions (7) Impulse control disorder ELEANOR BILLS MD Feb 16, 2017 20:50
[2017-02-16] MEDS: MIRTAZAPINE 7.5 MG TABLET. PO SCH (21:00)
[2017-02-16] MEDS: ATORVASTATIN CALCIUM 20 MG TABLET PO SCH (21:00)
[2017-02-17] MEDS: LEVOTHYROXINE 112 MCG TABLET PO SCH (06:00)
[2017-02-17 06:18] VITALS: BP 140/70
[2017-02-17] MEDS: traZODone 50 MG TABLET. PO SCH ×3 (08:00→16:58)
--- NOTE | 2017-02-17 08:08 | PN ---
DATE: 02/15/2017 This late entry for 02/15/2017 covers elements not covered in my initial note of 02/15/2017. SUBJECTIVE: I met with the patient in the evening of 02/15/2017. The patient is either lethargic or she is yelling. She has been in a Broda chair, leaning over to the right side. REVIEW OF SYSTEMS: Ambulation impaired. No CV, , pulmonary, eye, ENT system symptoms on review. Reliability poor. MENTAL STATUS EXAM: Oriented to herself. Insight, judgment, recent and remote memory, attention, concentration, fund of knowledge poor, consistent with her diagnosis as mentioned in my initial note. PLAN: Continue current psychotropics mentioned in my initial note. Trazodone was initiated. We will see how she does over the next day or so before deciding what to do next. Reviewed this at some length. MAN Aden BILLS MD DR: JAIME/meli JOB#: [id number] / [id number]
[2017-02-17] MEDS: LORazepam 0.5 MG TABLET PO SCH ×2 (09:00→20:14)
[2017-02-17] MEDS: POLYETHYLENE GLYCOL 3350 17 GM PACKET. PO SCH (09:00)
[2017-02-17] MEDS: CHOLECALCIFEROL (VITAMIN D3) 50,000 UNIT CAPSULE PO SCH (09:00)
[2017-02-17] MEDS: QUEtiapine 25 MG TABLET. PO SCH ×3 (09:00→20:10)
[2017-02-17] MEDS: DOCUSATE SODIUM 100 MG CAPSULE PO SCH ×2 (09:00→20:10)
[2017-02-17] MEDS: NAPROXEN 500 MG TABLET PO SCH ×2 (09:00→20:10)
[2017-02-17 10:43] VITALS: BP 152/84
[2017-02-17 11:24] LABS: BASO % 0 % (0-3); EOS # 0.1 x10^3/uL (0.0-0.7); EOS % 1 % (0-3); HEMATOCRIT 40.5 % (36.0-47.0); HEMOGLOBIN 13.6 g/dL (12.0-15.5); LYMPH # 0.8 x10^3/uL (1.0-4.8); LYMPH % 6 % (24-48); MEAN CORPUSCULAR HEMOGLOBIN 30 pg (25-35); MEAN CORPUSCULAR HGB CONC 34 g/dL (31-37); MEAN CORPUSCULAR VOLUME 90 fL (79-100); MONO # 1.4 x10^3/uL (0.0-1.1); MONO % 11 % (0-9); NEUT # 10.3 x10^3uL (1.8-7.7); NEUT % 81 % (31-73); PLATELET COUNT 228 x10^3/uL (140-400); RED CELL DISTRIBUTION WIDTH 14.7 % (11.5-14.5); WHITE BLOOD COUNT 12.7 x10^3/uL (4.0-11.0)
[2017-02-17 11:30] VITALS: BP 125/74
[2017-02-17 11:44] LABS: ALBUMIN 3.1 g/dL (3.4-5.0); ALBUMIN/GLOBULIN RATIO 0.9 (1.0-1.7); CALCIUM 8.7 mg/dL (8.5-10.1); CREATININE 0.4 mg/dL (0.6-1.0); GFR 159.2; MAGNESIUM 2.1 mg/dL (1.8-2.4); TOTAL BILIRUBIN 0.4 mg/dL (0.2-1.0); TOTAL PROTEIN 6.4 g/dL (6.4-8.2)
[2017-02-17 13:17] LABS: % BANDS 9 % (0-9); % LYMPHS 4 % (24-48); % MONOS 8 % (0-10); % SEGS 79 % (35-66)
[2017-02-17 13:18] LABS: PLT ESTIMATE ADEQUATE (ADEQUATE)
[2017-02-17 13:40] VITALS: BP 152/78
[2017-02-17 13:52] LABS: BACTERIA,URINE MANY /HPF (0-FEW); BILIRUBIN,URINE NEG (NEG); CLARITY,URINE CLOUDY; COLOR,URINE ORANGE; GLUCOSE,URINE NEG (NEG); NITRITE,URINE POS (NEG); SQUAMOUS EPITHELIAL CELL,UR OCC /LPF; UROBILINOGEN,URINE 0.2 mg/dL (0.2 mg/dL)
[2017-02-17 16:28] VITALS: BP 154/86
[2017-02-17 19:15] VITALS: BP 137/63
[2017-02-17] MEDS: ATORVASTATIN CALCIUM 20 MG TABLET PO SCH (20:10)
[2017-02-17] MEDS: MIRTAZAPINE 7.5 MG TABLET. PO SCH (20:10)
--- NOTE | 2017-02-17 22:20 | PDOC ---
Exam Jeanmarie Demential Exam: Jeanmarie Note: Please also refer to the separate dictated note~for this date of service dictated separately.~Patient seen individually. Discussed the patient with Nursing staff reviewed the chart.~Reviewed interim history and current functioning. Reviewed vital signs,~Labs/ Radiology~and current medications noted below. Continue current treatment with the changes noted in the dictated addendum note Assessment: Vital Signs: Vital Signs Date Time Temp Pulse Resp B/P (MAP) Pulse Ox O2 Delivery O2 Flow Rate FiO2 02/17/17 22:14 98.6 02/17/17 19:15 73 15 137/63 (87) 95 Room Air I&O Intake and Output 02/18/17 07:00 Intake Total 600 ml Balance 600 ml Intake Oral 600 ml # Voids 1 Labs: Laboratory Tests Test 02/17/17 11:05 02/17/17 12:48 White Blood Count 12.7 x10^3/uL (4.0-11.0) #H Red Blood Count 4.50 x10^6/uL (3.50-5.40) Hemoglobin 13.6 g/dL (12.0-15.5) Hematocrit 40.5 % (36.0-47.0) Mean Corpuscular Volume 90 fL (79-100) Mean Corpuscular Hemoglobin 30 pg (25-35) Mean Corpuscular Hemoglobin Concent 34 g/dL (31-37) Red Cell Distribution Width 14.7 % (11.5-14.5) H Platelet Count 228 x10^3/uL (140-400) Neutrophils (%) (Auto) 81 % (31-73) H Lymphocytes (%) (Auto) 6 % (24-48) L Monocytes (%) (Auto) 11 % (0-9) H Eosinophils (%) (Auto) 1 % (0-3) Basophils (%) (Auto) 0 % (0-3) Neutrophils # (Auto) 10.3 x10^3uL (1.8-7.7) H Lymphocytes # (Auto) 0.8 x10^3/uL (1.0-4.8) L Monocytes # (Auto) 1.4 x10^3/uL (0.0-1.1) H Eosinophils # (Auto) 0.1 x10^3/uL (0.0-0.7) Basophils # (Auto) 0.0 x10^3/uL (0.0-0.2) Segmented Neutrophils % 79 % (35-66) H Band Neutrophils % 9 % (0-9) Lymphocytes % 4 % (24-48) L Monocytes % 8 % (0-10) Platelet Estimate Adequate (ADEQUATE) Sodium Level 140 mmol/L (136-145) Potassium Level 4.0 mmol/L (3.5-5.1) Chloride Level 106 mmol/L (98-107) Carbon Dioxide Level 23 mmol/L (21-32) Anion Gap 11 (6-14) Blood Urea Nitrogen 16 mg/dL (7-20) Creatinine 0.4 mg/dL (0.6-1.0) L Estimated GFR (Cockcroft-Gault) 159.2 BUN/Creatinine Ratio 40 (6-20) H Glucose Level 76 mg/dL (70-99) Lactic Acid Level 0.8 mmol/L (0.4-2.0) Calcium Level 8.7 mg/dL (8.5-10.1) Magnesium Level 2.1 mg/dL (1.8-2.4) Total Bilirubin 0.4 mg/dL (0.2-1.0) Aspartate Amino Transferase (AST) 14 U/L (15-37) L Alanine Aminotransferase (ALT) 25 U/L (14-59) Alkaline Phosphatase 93 U/L (46-116) Creatine Kinase 53 U/L (26-192) Creatine Kinase MB (Mass) 1.1 ng/mL (0.0-3.6) Creatine Kinase MB Relative Index 2.1 % (0-4) Total Protein 6.4 g/dL (6.4-8.2) Albumin 3.1 g/dL (3.4-5.0) L Albumin/Globulin Ratio 0.9 (1.0-1.7) L Urine Collection Type Unknown Urine Color [place] Urine Clarity Cloudy Urine pH 6.5 Urine Specific [place] 1.025 Urine Protein Trace (NEG-TRACE) Urine Glucose (UA) Neg mg/dL (NEG) Urine Ketones (Stick) >=160 mg/dL (NEG) Urine Blood Small (NEG) Urine Nitrite Pos (NEG) Urine Bilirubin Neg (NEG) Urine Urobilinogen Dipstick 0.2 mg/dL (0.2 mg/dL) Urine Leukocyte Esterase Neg (NEG) Urine RBC 1-2 /HPF (0-2) Urine WBC 1-4 /HPF (0-4) Urine Squamous Epithelial Cells Occ /LPF Urine Bacteria Many /HPF (0-FEW) Urine Mucus Mod /LPF Current Medications: Meds: Current Medications Lorazepam (Ativan) 0.5 mg 1X ONCE PO Last administered on 02/01/17 19:14; Start 02/01/17 at 19:15; Stop 02/01/17 at 19:16; Status DC Ceftriaxone Sodium (Rocephin Im) 1 gm 1X ONCE IM Last administered on 20:45; Start 02/01/17 at 20:30; Stop 02/01/17 at 20:31; Status DC Acetaminophen (Tylenol) 650 mg PRN Q6HRS PRN PO MILD PAIN / TEMP Last administered on 02/13/17 23:00; Start 02/01/17 at 23:15 Multi-Ingredient Ointment (Analgesic [place]) 1 rosita PRN QID PRN TP MUSCLE PAIN; Start 02/01/17 at 23:15 Al Hydroxide/Mg Hydroxide (Mylanta Plus Xs) 15 ml PRN AFTMEALHC PRN PO DYSPEPSIA; Start 02/01/17 at 23:15 Magnesium Hydroxide (Milk Of Magnesia) 2,400 mg PRN QHS PRN PO CONSTIPATION Last administered on 02/13/17 02:05; Start 02/01/17 at 23:15 Olanzapine (ZyPREXA) 5 mg HS PO Last administered on 02/13/17 19:31; Start at 21:00; Stop 02/14/17 at 18:51; Status DC Quetiapine Fumarate (SEROquel) 25 mg BID PO Last administered on 02/08/17 08: 42; Start 02/02/17 at 09:00; Stop 02/08/17 at 19:16; Status DC Sertraline HCl (Zoloft) 100 mg DAILY PO Last administered on 02/06/17 08:01; Start 02/02/17 at 09:00; Stop 02/06/17 at 18:56; Status DC Olanzapine (ZyPREXA) 5 mg 1X ONCE PO Last administered on 02/02/17 00:27; Start 02/02/17 at 00:30; Stop 02/02/17 at 00:31; Status DC Alprazolam (Xanax) 0.5 mg BID PO Last administered on 02/13/17 11:42; Start at 09:00; Stop 02/13/17 at 18:35; Status DC Lorazepam (Ativan) 0.5 mg PRN Q4HRS PRN PO ANXIETY / AGITATION Last administered on 02/02/17 14:57; Start 02/02/17 at 00:15; Stop 02/02/17 at 15:59 ; Status DC Levothyroxine Sodium (Synthroid) 112 mcg DAILY06 PO Last administered on 05:48; Start 02/02/17 at 10:00 Naproxen (Naprosyn) 500 mg BID PO Last administered on 02/17/17 20:10; Start 02/02/17 at 09:00 Atorvastatin Calcium (Lipitor) 40 mg QHS PO Last administered on 02/17/17 20: 10; Start 02/02/17 at 21:00 Mirtazapine (Remeron) 7.5 mg QHS PO Last administered on 02/17/17 20:10; Start 02/02/17 at 21:00 Olanzapine (ZyPREXA ZYDIS) 2.5 mg PRN Q2HR PRN PO PSYCHOSIS Last administered on 02/17/17 14:32; Start 02/02/17 at 15:45 Alprazolam (Xanax) 0.25 mg PRN Q2HR PRN PO ANXIETY / AGITATION Last administered on 02/13/17 16:33; Start 02/02/17 at 15:45; Stop 02/13/17 at 18:35 ; Status DC Docusate Sodium (Colace) 100 mg BID PO Last administered on 02/17/17 20:10; Start 02/02/17 at 21:00 Polyethylene Glycol (miraLAX) 17 gm DAILY PO Last administered on 02/16/17 08: 01; Start 02/03/17 at 09:00 Vitamin D (Vitamin D3) 50,000 unit WEEKLY PO Last administered on 02/10/17 08: 38; Start 02/10/17 at 09:00 Divalproex Sodium (Depakote Sprinkles) 125 mg TID@0900,1300,1700 PO Last administered on 02/06/17 16:46; Start 02/04/17 at 09:00; Stop 02/06/17 at 18:56 ; Status DC Divalproex Sodium (Depakote Sprinkles) 250 mg TID@0900,1300,1700 PO Last administered on 02/09/17 09:13; Start 02/07/17 at 09:00; Stop 02/09/17 at 13:03 ; Status DC Fluvoxamine Maleate (Luvox) 50 mg HS PO Last administered on 02/13/17 19:32; Start 02/06/17 at 21:00; Stop 02/14/17 at 18:51; Status DC Quetiapine Fumarate (SEROquel) 25 mg TID PO Last administered on 02/09/17 09: 16; Start 02/09/17 at 09:00; Stop 02/09/17 at 13:30; Status DC Divalproex Sodium (Depakote Sprinkles) 375 mg TID@0900,1300,1700 PO Last administered on 02/16/17 08:01; Start 02/09/17 at 13:00; Stop 02/16/17 at 19:13 ; Status DC Quetiapine Fumarate (SEROquel) 37.5 mg TID PO Last administered on 02/12/17 12 :55; Start 02/09/17 at 14:00; Stop 02/12/17 at 17:56; Status DC Olanzapine (ZyPREXA) 5 mg 1X ONCE PO Last administered on 02/12/17 11:57; Start 02/12/17 at 12:00; Stop 02/12/17 at 12:01; Status DC Quetiapine Fumarate (SEROquel) 50 mg TID PO Last administered on 02/17/17 20: 10; Start 02/12/17 at 21:00 Lorazepam (Ativan) 0.5 mg PRN Q2HR PRN PO ANXIETY / AGITATION Last administered on 02/15/17 03:48; Start 02/13/17 at 18:45 Lorazepam (Ativan) 0.5 mg BID PO Last administered on 02/16/17 08:04; Start at 21:00; Stop 02/17/17 at 17:37; Status DC Fluvoxamine Maleate (Luvox) 75 mg HS PO Last administered on 02/15/17 19:11; Start 02/14/17 at 21:00; Stop 02/16/17 at 22:01; Status DC Trazodone HCl (Desyrel) 12.5 mg TID PO Last administered on 02/14/17 19:39; Start 02/14/17 at 19:00; Stop 02/14/17 at 21:12; Status DC Trazodone HCl (Desyrel) 12.5 mg TIDWMEALS PO Last administered on 02/17/17 16: 58; Start 02/15/17 at 08:00 Fluvoxamine Maleate (Luvox) 100 mg HS PO Last administered on 02/17/17 20:09; Start 02/16/17 at 21:00 Lorazepam (Ativan) 0.25 mg BID PO Last administered on 02/17/17 20:14; Start 02/17/17 at 21:00; Stop 02/18/17 at 22:00 Active Scripts Active Reported Atorvastatin Calcium 40 Mg Tablet 40 Mg PO QHS Naproxen 500 Mg Tablet 500 Mg PO BID Lorazepam 0.5 Mg Tablet 0.5 Mg PO PRN Q4HRS PRN Seroquel (Quetiapine Fumarate) 25 Mg Tablet 25 Mg PO BID Zoloft (Sertraline Hcl) 100 Mg Tablet 100 Mg PO DAILY Levothyroxine Sodium 112 Mcg Tablet 112 Mcg PO DAILYAC Olanzapine 5 Mg Tablet 5 Mg PO HS Alprazolam 0.5 Mg Tablet 0.5 Mg PO BID Diagnosis: Problems: (1) Anxiety disorder (2) Bipolar 1 disorder, mixed, moderate (3) Dementia in Alzheimer's disease with delusions (4) Dementia in Alzheimer's disease with depression (5) Dementia, vascular, with depression (6) Dementia, vascular, with delusions (7) Impulse control disorder ELEANOR BILLS MD Feb 17, 2017 22:20
[2017-02-18] MEDS: LEVOTHYROXINE 112 MCG TABLET PO SCH (05:25)
[2017-02-18 06:09] VITALS: BP 131/76
[2017-02-18 07:40] VITALS: BP 150/74
[2017-02-18] MEDS: NAPROXEN 500 MG TABLET PO SCH ×2 (08:39→19:48)
[2017-02-18] MEDS: QUEtiapine 25 MG TABLET. PO SCH ×3 (08:39→19:47)
[2017-02-18] MEDS: traZODone 50 MG TABLET. PO SCH ×3 (08:39→16:57)
[2017-02-18] MEDS: POLYETHYLENE GLYCOL 3350 17 GM PACKET. PO SCH (08:39)
[2017-02-18] MEDS: DOCUSATE SODIUM 100 MG CAPSULE PO SCH ×2 (08:39→19:48)
[2017-02-18] MEDS: LORazepam 0.5 MG TABLET PO SCH ×2 (08:41→20:06)
[2017-02-18 09:36] LABS: BASO # 0.1 x10^3/uL (0.0-0.2); BASO % 1 % (0-3); EOS # 0.2 x10^3/uL (0.0-0.7); EOS % 2 % (0-3); HEMATOCRIT 44.8 % (36.0-47.0); LYMPH # 0.9 x10^3/uL (1.0-4.8); LYMPH % 9 % (24-48); MEAN CORPUSCULAR HEMOGLOBIN 31 pg (25-35); MEAN CORPUSCULAR HGB CONC 34 g/dL (31-37); MEAN CORPUSCULAR VOLUME 92 fL (79-100); MONO # 0.9 x10^3/uL (0.0-1.1); MONO % 8 % (0-9); NEUT # 8.5 x10^3uL (1.8-7.7); NEUT % 80 % (31-73); PLATELET COUNT 195 x10^3/uL (140-400); RED BLOOD COUNT 4.89 x10^6/uL (3.50-5.40); RED CELL DISTRIBUTION WIDTH 15.3 % (11.5-14.5); WHITE BLOOD COUNT 10.6 x10^3/uL (4.0-11.0)
[2017-02-18 09:50] LABS: ALBUMIN/GLOBULIN RATIO 0.8 (1.0-1.7); CALCIUM 8.9 mg/dL (8.5-10.1); CREATININE 0.5 mg/dL (0.6-1.0); GFR 123.1; MAGNESIUM 2.3 mg/dL (1.8-2.4); TOTAL PROTEIN 6.7 g/dL (6.4-8.2)
[2017-02-18 10:01] LABS: TOTAL BILIRUBIN 0.2 mg/dL (0.2-1.0)
--- NOTE | 2017-02-18 10:15 | RAD ---
One or more of the following individualized dose reduction techniques were utilized for this examination: 1. Automated exposure control 2. Adjustment of the mA and/or kV according to patient size 3. Use of iterative reconstruction technique CT brain without contrast History: Change in mental status CT scan of brain was done without contrast. There is no intracranial hemorrhage or subdural hematoma. There is mild atrophy. The ventricles are dilated out of proportion to the patient's atrophy, hydrocephalus is suggested. There is no mass or shift of the midline. There is mucosal thickening in the sinuses Impression: 1. Mild diffuse thickening in the paranasal sinuses. 2. Dilated lateral ventricles. 3. No intracranial hemorrhage.
[2017-02-18 17:14] VITALS: BP 124/70
[2017-02-18] MEDS: ATORVASTATIN CALCIUM 20 MG TABLET PO SCH (19:47)
[2017-02-18] MEDS: MIRTAZAPINE 7.5 MG TABLET. PO SCH (19:57)
--- NOTE | 2017-02-18 23:05 | PDOC ---
Exam Jeanmarie Demential Exam: Jeanmarie Note: Please also refer to the separate dictated note~for this date of service dictated separately.~Patient seen individually. Discussed the patient with Nursing staff reviewed the chart.~Reviewed interim history and current functioning. Reviewed vital signs,~Labs/ Radiology~and current medications noted below. Continue current treatment with the changes noted in the dictated addendum note Assessment: Vital Signs: Vital Signs Date Time Temp Pulse Resp B/P (MAP) Pulse Ox O2 Delivery O2 Flow Rate FiO2 02/18/17 17:14 97.8 82 16 124/70 (88) 93 02/18/17 07:40 Room Air I&O Intake and Output 02/19/17 07:00 Intake Total 1800 ml Balance 1800 ml Intake Oral 1800 ml # Voids 1 # Bowel Movements 1 Labs: Laboratory Tests Test 02/18/17 09:25 White Blood Count 10.6 x10^3/uL (4.0-11.0) Red Blood Count 4.89 x10^6/uL (3.50-5.40) Hemoglobin 15.0 g/dL (12.0-15.5) Hematocrit 44.8 % (36.0-47.0) Mean Corpuscular Volume 92 fL (79-100) Mean Corpuscular Hemoglobin 31 pg (25-35) Mean Corpuscular Hemoglobin Concent 34 g/dL (31-37) Red Cell Distribution Width 15.3 % (11.5-14.5) H Platelet Count 195 x10^3/uL (140-400) Neutrophils (%) (Auto) 80 % (31-73) H Lymphocytes (%) (Auto) 9 % (24-48) L Monocytes (%) (Auto) 8 % (0-9) Eosinophils (%) (Auto) 2 % (0-3) Basophils (%) (Auto) 1 % (0-3) Neutrophils # (Auto) 8.5 x10^3uL (1.8-7.7) H Lymphocytes # (Auto) 0.9 x10^3/uL (1.0-4.8) L Monocytes # (Auto) 0.9 x10^3/uL (0.0-1.1) Eosinophils # (Auto) 0.2 x10^3/uL (0.0-0.7) Basophils # (Auto) 0.1 x10^3/uL (0.0-0.2) Sodium Level 137 mmol/L (136-145) Potassium Level 4.0 mmol/L (3.5-5.1) Chloride Level 105 mmol/L (98-107) Carbon Dioxide Level 21 mmol/L (21-32) Anion Gap 11 (6-14) Blood Urea Nitrogen 16 mg/dL (7-20) Creatinine 0.5 mg/dL (0.6-1.0) L Estimated GFR (Cockcroft-Gault) 123.1 BUN/Creatinine Ratio 32 (6-20) H Glucose Level 158 mg/dL (70-99) H Calcium Level 8.9 mg/dL (8.5-10.1) Magnesium Level 2.3 mg/dL (1.8-2.4) Total Bilirubin 0.2 mg/dL (0.2-1.0) Aspartate Amino Transferase (AST) 3 U/L (15-37) L Alanine Aminotransferase (ALT) 22 U/L (14-59) Alkaline Phosphatase 102 U/L (46-116) Total Protein 6.7 g/dL (6.4-8.2) Albumin 3.0 g/dL (3.4-5.0) L Albumin/Globulin Ratio 0.8 (1.0-1.7) L Current Medications: Meds: Current Medications Lorazepam (Ativan) 0.5 mg 1X ONCE PO Last administered on 02/01/17 19:14; Start 02/01/17 at 19:15; Stop 02/01/17 at 19:16; Status DC Ceftriaxone Sodium (Rocephin Im) 1 gm 1X ONCE IM Last administered on 20:45; Start 02/01/17 at 20:30; Stop 02/01/17 at 20:31; Status DC Acetaminophen (Tylenol) 650 mg PRN Q6HRS PRN PO MILD PAIN / TEMP Last administered on 02/13/17 23:00; Start 02/01/17 at 23:15 Multi-Ingredient Ointment (Analgesic [place]) 1 rosita PRN QID PRN TP MUSCLE PAIN; Start 02/01/17 at 23:15 Al Hydroxide/Mg Hydroxide (Mylanta Plus Xs) 15 ml PRN AFTMEALHC PRN PO DYSPEPSIA; Start 02/01/17 at 23:15 Magnesium Hydroxide (Milk Of Magnesia) 2,400 mg PRN QHS PRN PO CONSTIPATION Last administered on 02/13/17 02:05; Start 02/01/17 at 23:15 Olanzapine (ZyPREXA) 5 mg HS PO Last administered on 02/13/17 19:31; Start at 21:00; Stop 02/14/17 at 18:51; Status DC Quetiapine Fumarate (SEROquel) 25 mg BID PO Last administered on 02/08/17 08: 42; Start 02/02/17 at 09:00; Stop 02/08/17 at 19:16; Status DC Sertraline HCl (Zoloft) 100 mg DAILY PO Last administered on 02/06/17 08:01; Start 02/02/17 at 09:00; Stop 02/06/17 at 18:56; Status DC Olanzapine (ZyPREXA) 5 mg 1X ONCE PO Last administered on 02/02/17 00:27; Start 02/02/17 at 00:30; Stop 02/02/17 at 00:31; Status DC Alprazolam (Xanax) 0.5 mg BID PO Last administered on 02/13/17 11:42; Start at 09:00; Stop 02/13/17 at 18:35; Status DC Lorazepam (Ativan) 0.5 mg PRN Q4HRS PRN PO ANXIETY / AGITATION Last administered on 02/02/17 14:57; Start 02/02/17 at 00:15; Stop 02/02/17 at 15:59 ; Status DC Levothyroxine Sodium (Synthroid) 112 mcg DAILY06 PO Last administered on 05:25; Start 02/02/17 at 10:00 Naproxen (Naprosyn) 500 mg BID PO Last administered on 02/18/17 19:48; Start 02/02/17 at 09:00 Atorvastatin Calcium (Lipitor) 40 mg QHS PO Last administered on 02/18/17 19: 47; Start 02/02/17 at 21:00 Mirtazapine (Remeron) 7.5 mg QHS PO Last administered on 02/18/17 19:57; Start 02/02/17 at 21:00 Olanzapine (ZyPREXA ZYDIS) 2.5 mg PRN Q2HR PRN PO PSYCHOSIS Last administered on 02/18/17 16:58; Start 02/02/17 at 15:45 Alprazolam (Xanax) 0.25 mg PRN Q2HR PRN PO ANXIETY / AGITATION Last administered on 02/13/17 16:33; Start 02/02/17 at 15:45; Stop 02/13/17 at 18:35 ; Status DC Docusate Sodium (Colace) 100 mg BID PO Last administered on 02/18/17 19:48; Start 02/02/17 at 21:00 Polyethylene Glycol (miraLAX) 17 gm DAILY PO Last administered on 02/18/17 08: 39; Start 02/03/17 at 09:00 Vitamin D (Vitamin D3) 50,000 unit WEEKLY PO Last administered on 02/10/17 08: 38; Start 02/10/17 at 09:00 Divalproex Sodium (Depakote Sprinkles) 125 mg TID@0900,1300,1700 PO Last administered on 02/06/17 16:46; Start 02/04/17 at 09:00; Stop 02/06/17 at 18:56 ; Status DC Divalproex Sodium (Depakote Sprinkles) 250 mg TID@0900,1300,1700 PO Last administered on 02/09/17 09:13; Start 02/07/17 at 09:00; Stop 02/09/17 at 13:03 ; Status DC Fluvoxamine Maleate (Luvox) 50 mg HS PO Last administered on 02/13/17 19:32; Start 02/06/17 at 21:00; Stop 02/14/17 at 18:51; Status DC Quetiapine Fumarate (SEROquel) 25 mg TID PO Last administered on 02/09/17 09: 16; Start 02/09/17 at 09:00; Stop 02/09/17 at 13:30; Status DC Divalproex Sodium (Depakote Sprinkles) 375 mg TID@0900,1300,1700 PO Last administered on 02/16/17 08:01; Start 02/09/17 at 13:00; Stop 02/16/17 at 19:13 ; Status DC Quetiapine Fumarate (SEROquel) 37.5 mg TID PO Last administered on 02/12/17 12 :55; Start 02/09/17 at 14:00; Stop 02/12/17 at 17:56; Status DC Olanzapine (ZyPREXA) 5 mg 1X ONCE PO Last administered on 02/12/17 11:57; Start 02/12/17 at 12:00; Stop 02/12/17 at 12:01; Status DC Quetiapine Fumarate (SEROquel) 50 mg TID PO Last administered on 02/18/17 19: 47; Start 02/12/17 at 21:00 Lorazepam (Ativan) 0.5 mg PRN Q2HR PRN PO ANXIETY / AGITATION Last administered on 02/15/17 03:48; Start 02/13/17 at 18:45 Lorazepam (Ativan) 0.5 mg BID PO Last administered on 02/16/17 08:04; Start at 21:00; Stop 02/17/17 at 17:37; Status DC Fluvoxamine Maleate (Luvox) 75 mg HS PO Last administered on 02/15/17 19:11; Start 02/14/17 at 21:00; Stop 02/16/17 at 22:01; Status DC Trazodone HCl (Desyrel) 12.5 mg TID PO Last administered on 02/14/17 19:39; Start 02/14/17 at 19:00; Stop 02/14/17 at 21:12; Status DC Trazodone HCl (Desyrel) 12.5 mg TIDWMEALS PO Last administered on 02/18/17 16: 57; Start 02/15/17 at 08:00 Fluvoxamine Maleate (Luvox) 100 mg HS PO Last administered on 02/18/17 19:47; Start 02/16/17 at 21:00 Lorazepam (Ativan) 0.25 mg BID PO Last administered on 02/18/17 20:06; Start 02/17/17 at 21:00; Stop 02/18/17 at 22:00; Status DC Active Scripts Active Reported Atorvastatin Calcium 40 Mg Tablet 40 Mg PO QHS Naproxen 500 Mg Tablet 500 Mg PO BID Lorazepam 0.5 Mg Tablet 0.5 Mg PO PRN Q4HRS PRN Seroquel (Quetiapine Fumarate) 25 Mg Tablet 25 Mg PO BID Zoloft (Sertraline Hcl) 100 Mg Tablet 100 Mg PO DAILY Levothyroxine Sodium 112 Mcg Tablet 112 Mcg PO DAILYAC Olanzapine 5 Mg Tablet 5 Mg PO HS Alprazolam 0.5 Mg Tablet 0.5 Mg PO BID Diagnosis: Problems: (1) Anxiety disorder (2) Bipolar 1 disorder, mixed, moderate (3) Dementia in Alzheimer's disease with delusions (4) Dementia in Alzheimer's disease with depression (5) Dementia, vascular, with depression (6) Dementia, vascular, with delusions (7) Impulse control disorder ELEANOR BILLS MD Feb 18, 2017 23:05
--- NOTE | 2017-02-19 00:53 | PN ---
DATE: 02/17/2017 PSYCHIATRIC PROGRESS NOTE This is a late entry for 02/17/2017, covers elements not covered in my initial note of 02/17/2017. SUBJECTIVE: I met with the patient the evening of 02/17/2017. The patient remains a full code. Nursing staff have discussed it with the family given her overall medical status and progressive dementia, which is quite significant. In the morning, she was lethargic, sedated, yelled during the visit by family on 02/17/2017. She has a cough. She remains somewhat delusional, possibly hallucinating, talking to her grandmother, talking about her legs being hacked off and then stating "come here puppy." Diet is mechanical soft, n.p.o. was discontinued per speech therapy. WBC elevated, afebrile, deferred to Dr. Merino. We will check her CT head due to change in mental status. REVIEW OF SYSTEMS: Ambulation impaired. No CV, , pulmonary, eye, ENT system symptoms on review. Lying in bed the evening of 02/17/2017 as I met with her. MENTAL STATUS EXAM: Oriented to herself. Insight, judgment, recent and remote memory, attention, concentration, fund of knowledge poor, consistent with her diagnosis as mentioned in my initial note. PLAN: Continue current psychotropics. Depakote was discontinued. Check CT head as noted. Risk/benefit ratio favors no further change at this time. Reviewed drug interactions. MAN Aden BILLS MD DR: JAIME/meli JOB#: [id number] / [id number]
[2017-02-19] MEDS: LEVOTHYROXINE 112 MCG TABLET PO SCH (05:55)
[2017-02-19 06:37] VITALS: BP 121/72
[2017-02-19 06:41] VITALS: BP 121/72
[2017-02-19] MEDS: traZODone 50 MG TABLET. PO SCH ×5 (07:57→19:18)
[2017-02-19] MEDS: NAPROXEN 500 MG TABLET PO SCH ×2 (07:57→19:18)
[2017-02-19] MEDS: DOCUSATE SODIUM 100 MG CAPSULE PO SCH ×2 (07:57→19:18)
[2017-02-19] MEDS: QUEtiapine 25 MG TABLET. PO SCH ×2 (07:57→13:43)
[2017-02-19] MEDS: POLYETHYLENE GLYCOL 3350 17 GM PACKET. PO SCH (07:57)
[2017-02-19] MEDS: LORazepam 0.5 MG TABLET PO PRN ×3 (09:44→19:17)
--- NOTE | 2017-02-19 14:26 | CONS ---
DATE OF CONSULTATION: 02/01/2017 NEUROLOGIC CONSULTATION REFERRING PHYSICIAN: Ron Hernandez MD REASON FOR CONSULTATION: Mental status changes. HISTORY OF PRESENT ILLNESS: This is a 66-year-old female, who was admitted to geropsychiatric unit after she presented with a history of severe depressions and behavior disturbances described as disruptive, agitated, and paranoid, complicated with severe anxiety. Neuro consult was requested because of abnormal head CT scan to rule out hydrocephalus. I did talk to her daughter, Silvina who told me that the patient has had deterioration of her mental status along with confusion and disorientation for approximately 3 years. She was evaluated by a neurologist in [place] and she had extensive workup for dementia and including spinal tap. However, the daughter would not know the exact result of spinal tap, but she stated hydrocephalus was ruled out. The patient complains of intermittent headaches, but she denies any other medical or neurological complaints. It has been reported that the patient sometimes becomes very agitated with violent behavior includes screaming and yelling. Initial nonenhanced ____ scan revealed evidence of dilated lateral ventricles without acute intracranial process, mild diffuse thickening in the paraspinal sinuses. There has been no history of frequent falls or urinary incontinence. The patient has been ambulated with a wheelchair. PAST SURGICAL HISTORY: Significant for bilateral cataract extraction, tonsillectomy, appendectomy, left total knee replacement. PAST MEDICAL HISTORY: Significant for dementia, bipolar disorders, anxiety and depression, hyperlipidemia and hypothyroidism, malnutrition, and generalized weakness. ALLERGIES: ADHESIVE TAPE. CURRENT MEDICATIONS: Includes Luvox 100 mg at bedtime, trazodone 12.5 mg t.i.d., Seroquel 50 mg t.i.d., vitamin D3 50 units weekly, mirtazapine 7.5 mg at bedtime, Lipitor 40 mg at bedtime, olanzapine 2.5 mg p.r.n. every 2 hours p.r.n. for agitation, levothyroxine 112 mcg p.o. daily, naproxen 500 mg b.i.d., Tylenol p.r.n. REVIEW OF SYSTEMS: A 10-point review of system was performed as mentioned above in history of present illness. PHYSICAL EXAMINATION: GENERAL: Well-developed, well-nourished white female, not in acute distress. VITAL SIGNS: She weighs 102.5 pounds. Blood pressure 131/76, respiratory rate 16, pulse 75 and regular, temperature 97.3, oxygen saturation 97% on room air. HEENT: Normocephalic, atraumatic, otherwise unremarkable. NECK: Supple. Negative for carotid bruit, lymphadenopathy, or thyromegaly. LUNGS: Clear to A and P. CARDIOVASCULAR: Regular rhythm, normal S1, S2. There is no S3, S4, or murmur. ABDOMEN: Soft. Bowel sounds positive. EXTREMITIES: Negative for cyanosis, clubbing, or pitting edema. However, the patient has some increased stiffness and some increased rigidity in the lower extremities, probably secondary to previous left knee surgery. NEUROLOGICAL: Mental Status: The patient is awake, but disoriented to time, place, and person. Speech is fluent. Language, there is no language dysfunctions. Memory, judgment, and abstract thinking are fair. The patient denies hallucination or delusion. Cranial nerves: Visual swain appeared to be intact. Pupils are reactive to light and accommodation. Extraocular movements are intact. There is no nystagmus. There is no facial motor or sensory deficit. Hearing is diminished bilaterally. The palate is elevated symmetrically. Sternocleidomastoid muscles are powerful bilaterally. The patient's shrugs her shoulders symmetrically and protrudes her tongue in the midline without fasciculation or atrophy. Motor: No focal muscle bulk was seen. The tone is normal. The strength is increased in the lower extremities, more prominent on the left side, probably due to a left knee replacement. The strength elsewhere was 5/5 throughout. Sensory examination revealed normal pinprick and light touch senses throughout. Deep tendon reflexes are symmetric and hypoactive with absent Achilles responses. Gait: The patient has unsteady stance and not able even to stand with assistance. LABORATORY DATA: CBC revealed white blood cells of 10,600; hemoglobin 15; hematocrit 44.8; platelet count 195,000. Chemistry revealed sodium 137, potassium 4, chloride 105, CO2 of 21, BUN 16, creatinine 0.5, glucose 158. Her cardiac enzymes are normal. Urinalysis is negative for urinary tract infections. Valproic acid is 82 on 02/12/2017. However, the patient has not been ____ on folic acid or Depakote. IMPRESSION: 1. Dementia, probably of Alzheimer type with behavior disturbances. 2. Abnormal head CT scan, consistent with a bilateral ventricular hypertrophy. 3. Multiple psychiatric problems including depressions, bipolar, and anxiety. 4. Multiple medical problems include hyperlipidemia, hypothyroidism, and gait disturbances, probably due to left total knee replacement. RECOMMENDATIONS: 1. The daughter stated that the family wants the patient to have a DNR status. 2. No aggressive neurological investigations or procedure. 3. Continue with current medical and psychiatric care. M Colton MONAHAN MD DR: SUNSHINE/meli JOB#: [id number] / [id number]
[2017-02-19] MEDS: ACETAMINOPHEN 325 MG TABLET PO PRN (15:57)
[2017-02-19 16:39] VITALS: BP 111/64
[2017-02-19] MEDS: ATORVASTATIN CALCIUM 20 MG TABLET PO SCH (19:18)
[2017-02-19] MEDS: MIRTAZAPINE 7.5 MG TABLET. PO SCH (19:18)
--- NOTE | 2017-02-19 21:18 | PDOC ---
Exam Jeanmarie Demential Exam: Jeanmarie Note: Please also refer to the separate dictated note~for this date of service dictated separately.~Patient seen individually. Discussed the patient with Nursing staff reviewed the chart.~Reviewed interim history and current functioning. Reviewed vital signs,~Labs/ Radiology~and current medications noted below. Continue current treatment with the changes noted in the dictated addendum note Assessment: Vital Signs: Vital Signs Date Time Temp Pulse Resp B/P (MAP) Pulse Ox O2 Delivery O2 Flow Rate FiO2 02/19/17 16:39 98.5 83 18 111/64 (80) 92 02/19/17 06:41 Room Air I&O Intake and Output 02/20/17 07:00 Intake Total 840 ml Balance 840 ml Intake Oral 840 ml Current Medications: Meds: Current Medications Lorazepam (Ativan) 0.5 mg 1X ONCE PO Last administered on 02/01/17 19:14; Start 02/01/17 at 19:15; Stop 02/01/17 at 19:16; Status DC Ceftriaxone Sodium (Rocephin Im) 1 gm 1X ONCE IM Last administered on 20:45; Start 02/01/17 at 20:30; Stop 02/01/17 at 20:31; Status DC Acetaminophen (Tylenol) 650 mg PRN Q6HRS PRN PO MILD PAIN / TEMP Last administered on 02/19/17 15:57; Start 02/01/17 at 23:15 Multi-Ingredient Ointment (Analgesic [place]) 1 rosita PRN QID PRN TP MUSCLE PAIN; Start 02/01/17 at 23:15 Al Hydroxide/Mg Hydroxide (Mylanta Plus Xs) 15 ml PRN AFTMEALHC PRN PO DYSPEPSIA; Start 02/01/17 at 23:15 Magnesium Hydroxide (Milk Of Magnesia) 2,400 mg PRN QHS PRN PO CONSTIPATION Last administered on 02/13/17 02:05; Start 02/01/17 at 23:15 Olanzapine (ZyPREXA) 5 mg HS PO Last administered on 02/13/17 19:31; Start at 21:00; Stop 02/14/17 at 18:51; Status DC Quetiapine Fumarate (SEROquel) 25 mg BID PO Last administered on 02/08/17 08: 42; Start 02/02/17 at 09:00; Stop 02/08/17 at 19:16; Status DC Sertraline HCl (Zoloft) 100 mg DAILY PO Last administered on 02/06/17 08:01; Start 02/02/17 at 09:00; Stop 02/06/17 at 18:56; Status DC Olanzapine (ZyPREXA) 5 mg 1X ONCE PO Last administered on 02/02/17 00:27; Start 02/02/17 at 00:30; Stop 02/02/17 at 00:31; Status DC Alprazolam (Xanax) 0.5 mg BID PO Last administered on 02/13/17 11:42; Start at 09:00; Stop 02/13/17 at 18:35; Status DC Lorazepam (Ativan) 0.5 mg PRN Q4HRS PRN PO ANXIETY / AGITATION Last administered on 02/02/17 14:57; Start 02/02/17 at 00:15; Stop 02/02/17 at 15:59 ; Status DC Levothyroxine Sodium (Synthroid) 112 mcg DAILY06 PO Last administered on 05:55; Start 02/02/17 at 10:00 Naproxen (Naprosyn) 500 mg BID PO Last administered on 02/19/17 19:18; Start 02/02/17 at 09:00 Atorvastatin Calcium (Lipitor) 40 mg QHS PO Last administered on 02/19/17 19: 18; Start 02/02/17 at 21:00 Mirtazapine (Remeron) 7.5 mg QHS PO Last administered on 02/19/17 19:18; Start 02/02/17 at 21:00 Olanzapine (ZyPREXA ZYDIS) 2.5 mg PRN Q2HR PRN PO PSYCHOSIS Last administered on 02/19/17 15:56; Start 02/02/17 at 15:45 Alprazolam (Xanax) 0.25 mg PRN Q2HR PRN PO ANXIETY / AGITATION Last administered on 02/13/17 16:33; Start 02/02/17 at 15:45; Stop 02/13/17 at 18:35 ; Status DC Docusate Sodium (Colace) 100 mg BID PO Last administered on 02/19/17 19:18; Start 02/02/17 at 21:00 Polyethylene Glycol (miraLAX) 17 gm DAILY PO Last administered on 02/19/17 07: 57; Start 02/03/17 at 09:00 Vitamin D (Vitamin D3) 50,000 unit WEEKLY PO Last administered on 02/10/17 08: 38; Start 02/10/17 at 09:00 Divalproex Sodium (Depakote Sprinkles) 125 mg TID@0900,1300,1700 PO Last administered on 02/06/17 16:46; Start 02/04/17 at 09:00; Stop 02/06/17 at 18:56 ; Status DC Divalproex Sodium (Depakote Sprinkles) 250 mg TID@0900,1300,1700 PO Last administered on 02/09/17 09:13; Start 02/07/17 at 09:00; Stop 02/09/17 at 13:03 ; Status DC Fluvoxamine Maleate (Luvox) 50 mg HS PO Last administered on 02/13/17 19:32; Start 02/06/17 at 21:00; Stop 02/14/17 at 18:51; Status DC Quetiapine Fumarate (SEROquel) 25 mg TID PO Last administered on 02/09/17 09: 16; Start 02/09/17 at 09:00; Stop 02/09/17 at 13:30; Status DC Divalproex Sodium (Depakote Sprinkles) 375 mg TID@0900,1300,1700 PO Last administered on 02/16/17 08:01; Start 02/09/17 at 13:00; Stop 02/16/17 at 19:13 ; Status DC Quetiapine Fumarate (SEROquel) 37.5 mg TID PO Last administered on 02/12/17 12 :55; Start 02/09/17 at 14:00; Stop 02/12/17 at 17:56; Status DC Olanzapine (ZyPREXA) 5 mg 1X ONCE PO Last administered on 02/12/17 11:57; Start 02/12/17 at 12:00; Stop 02/12/17 at 12:01; Status DC Quetiapine Fumarate (SEROquel) 50 mg TID PO Last administered on 02/19/17 13: 43; Start 02/12/17 at 21:00; Stop 02/19/17 at 18:29; Status DC Lorazepam (Ativan) 0.5 mg PRN Q2HR PRN PO ANXIETY / AGITATION Last administered on 02/19/17 19:17; Start 02/13/17 at 18:45 Lorazepam (Ativan) 0.5 mg BID PO Last administered on 02/16/17 08:04; Start at 21:00; Stop 02/17/17 at 17:37; Status DC Fluvoxamine Maleate (Luvox) 75 mg HS PO Last administered on 02/15/17 19:11; Start 02/14/17 at 21:00; Stop 02/16/17 at 22:01; Status DC Trazodone HCl (Desyrel) 12.5 mg TID PO Last administered on 02/14/17 19:39; Start 02/14/17 at 19:00; Stop 02/14/17 at 21:12; Status DC Trazodone HCl (Desyrel) 12.5 mg TIDWMEALS PO Last administered on 02/19/17 07: 57; Start 02/15/17 at 08:00; Stop 02/19/17 at 09:00; Status DC Fluvoxamine Maleate (Luvox) 100 mg HS PO Last administered on 02/19/17 19:18; Start 02/16/17 at 21:00 Lorazepam (Ativan) 0.25 mg BID PO Last administered on 02/18/17 20:06; Start 02/17/17 at 21:00; Stop 02/18/17 at 22:00; Status DC Trazodone HCl (Desyrel) 12.5 mg QID PO Last administered on 02/19/17 19:18; Start 02/19/17 at 09:00 Risperidone (RisperDAL) 0.125 mg TID@0900,1300,1700 PO ; Start 02/20/17 at 09:00 Active Scripts Active Reported Atorvastatin Calcium 40 Mg Tablet 40 Mg PO QHS Naproxen 500 Mg Tablet 500 Mg PO BID Lorazepam 0.5 Mg Tablet 0.5 Mg PO PRN Q4HRS PRN Seroquel (Quetiapine Fumarate) 25 Mg Tablet 25 Mg PO BID Zoloft (Sertraline Hcl) 100 Mg Tablet 100 Mg PO DAILY Levothyroxine Sodium 112 Mcg Tablet 112 Mcg PO DAILYAC Olanzapine 5 Mg Tablet 5 Mg PO HS Alprazolam 0.5 Mg Tablet 0.5 Mg PO BID Diagnosis: Problems: (1) Anxiety disorder (2) Bipolar 1 disorder, mixed, moderate (3) Dementia in Alzheimer's disease with delusions (4) Dementia in Alzheimer's disease with depression (5) Dementia, vascular, with depression (6) Dementia, vascular, with delusions (7) Impulse control disorder ELEANOR BILLS MD Feb 19, 2017 21:18
--- NOTE | 2017-02-20 01:52 | PN ---
DATE: 02/01/2017 SUBJECTIVE: According to the nursing staff, the patient has been agitated this morning and last night she is yelling, screaming, and sometimes hallucinating. She was given Xanax and Zyprexa Zydis 2 hours ago; however, she continues to scream. When interviewed her she stopped screaming and she follows commands. OBJECTIVE GENERAL: Physical examination revealed well-developed and well-nourished white female, not in acute distress. VITAL SIGNS: Blood pressure 121/72, respiratory rate 16, pulse is 62 and regular, temperature 97.5, and oxygen saturation 94% on room air. HEENT: Normocephalic and atraumatic; otherwise, unremarkable. NECK: Supple. Negative for carotid bruit, lymphadenopathy, or thyromegaly. LUNGS: Clear to A and P. CARDIOVASCULAR: Regular rate and rhythm. Normal S1 and S2. ABDOMEN: Soft. Bowel sounds positive. EXTREMITIES: Negative for cyanosis, clubbing, or pitting edema. NEUROLOGIC: The patient is awake, but disoriented to time, place, and person. Speech is fluent. There is no obvious language dysfunction. Memory, judgment, and abstract thinking are impaired. Cranial nerves appeared to be intact. Motor Examination, no focal muscle bulk was seen. The tone is normal. The strength is 4/5 throughout. Sensory examination revealed normal pinprick and light touch senses throughout. Deep tendon reflexes were symmetric and hypoactive with absent Achilles responses. Gait not tested as the patient is severely unsteady on her feet. LABORATORY DATA: CBC revealed white cells of 10.6 thousands, hemoglobin 15, hematocrit 44.8, and platelet count 195,000. Chemistry revealed sodium of 137, potassium 4, chloride 105, CO2 21, BUN 16, creatinine 0.5, calcium is 8.9. Those labs from 01/31/2017. IMPRESSION: 1. Dementia. 2. Abnormal head CT scan suggestive of possible normal pressure hydrocephalus, which has been ruled out. 3. ____ depressions, dementia probably of Alzheimer type, hyperlipidemia, and hypothyroidism. RECOMMENDATIONS: Continue with current medical and psychiatric care. M Colton MONAHAN MD DR: SUNSHINE/meli JOB#: [id number] / [id number]
[2017-02-20] MEDS: LEVOTHYROXINE 112 MCG TABLET PO SCH (06:07)
[2017-02-20] MEDS: DOCUSATE SODIUM 100 MG CAPSULE PO SCH ×2 (10:23→19:53)
[2017-02-20] MEDS: NAPROXEN 500 MG TABLET PO SCH ×2 (10:24→19:54)
[2017-02-20] MEDS: POLYETHYLENE GLYCOL 3350 17 GM PACKET. PO SCH (10:24)
[2017-02-20] MEDS: traZODone 50 MG TABLET. PO SCH ×4 (10:24→19:53)
[2017-02-20] MEDS: risperiDONE 0.25 MG TABLET. PO SCH ×3 (10:25→17:31)
--- NOTE | 2017-02-20 10:46 | PN ---
DATE: 02/16/2017 This is a late entry for 02/16/2017 and covers the elements not covered in my initial note of 02/16/2017. SUBJECTIVE: The patient was staffed at a treatment team meeting with the entire team the morning of 02/16/2017, seen individually the evening of 02/16/2017 and staff had called me during the day on account of the patient's ongoing mood lability and agitation. She has been yelling out whenever she is awake and rest of the time she is somewhat sedated, trazodone was held during the day. She seems to be an aspiration risk by the evening has been placed on n.p.o., has a left lower lobe atelectasis, we will defer to Dr. Merino. She remains afebrile. REVIEW OF SYSTEMS: Ambulation impaired. No CV, , pulmonary, eye, ENT system symptoms on review. Reliability poor. MENTAL STATUS EXAM: Oriented to herself. Insight, judgment, recent and remote memory, attention, concentration, fund of knowledge poor consistent with her diagnosis mentioned in my initial note. IMPRESSION: Major neurocognitive disorder, Alzheimer, vascular with depression, delusion, behavioral disturbance; anxiety disorder, unspecified; impulse control disorder, unspecified; aspiration risk on n.p.o. status, obsessive compulsive disorder. PLAN: We will stop the Depakote in case this is worsening her mood lability rather than it. If some of the sedation persists starting 02/17/2017, we will stop the Ativan as well. She remains on Seroquel and Remeron along with Zyprexa p.r.n., Luvox, scheduled trazodone 12.5 mg t.i.d. We may in fact taper the Ativan rather than stopping it completely since we would additionally stop the Depakote and we would like to minimize any chance of seizures consequent to a drawl. Reviewed drug contractions at length. Risk/benefit ratio favors no further change. MAN Aden BILLS MD DR: JAIME/meli JOB#: [id number] / [id number]
--- NOTE | 2017-02-20 10:54 | PN ---
DATE: 02/18/2017 This late entry 02/18/2017 covers elements not covered in my initial note of 02/18/2017. SUBJECTIVE: I met with the patient in the evening of 02/18/2017. CT head showed hydrocephalus. We have asked the Neurology consult with Dr. Marino. No surgical intervention suggested she has been yelling, at times drowsy first thing in the morning, but otherwise yelling much of the day, resistive, , anxious, helpless, hallucinating, delusional. REVIEW OF SYSTEMS: Ambulation impaired. No CV, , pulmonary, eye, ENT system symptoms on review. Reliability poor. MENTAL STATUS EXAM: Oriented to herself. Insight, judgment, recent and remote memory, attention, concentration, fund of knowledge poor, consistent with her diagnosis mentioned in my initial note. PLAN: Ativan is being tapered and discontinued. Continue rest of psychotropics, increase trazodone from 12.5 t.i.d. to 12.5 mg 4 times a day. Review drug interactions, risk/benefit ratio favors no further change. ELEANOR BILLS MD DR: JAIME/meli JOB#: [id number] / [id number]
[2017-02-20] MEDS: LORazepam 0.5 MG TABLET PO PRN ×3 (11:22→20:21)
[2017-02-20 16:51] VITALS: BP 123/62
[2017-02-20] MEDS: ATORVASTATIN CALCIUM 20 MG TABLET PO SCH (19:54)
[2017-02-20] MEDS: MIRTAZAPINE 7.5 MG TABLET. PO SCH ×2 (19:54→23:08)
--- NOTE | 2017-02-20 21:11 | PDOC ---
Exam Jeanmarie Demential Exam: Jeanmarie Note: Please also refer to the separate dictated note~for this date of service dictated separately.~Patient seen individually. Discussed the patient with Nursing staff reviewed the chart.~Reviewed interim history and current functioning. Reviewed vital signs,~Labs/ Radiology~and current medications noted below. Continue current treatment with the changes noted in the dictated addendum note Assessment: Vital Signs: Vital Signs Date Time Temp Pulse Resp B/P (MAP) Pulse Ox O2 Delivery O2 Flow Rate FiO2 02/20/17 16:51 98.6 83 20 123/62 (82) 91 02/19/17 06:41 Room Air I&O Intake and Output 02/21/17 07:00 Intake Total 720 ml Balance 720 ml Intake Oral 720 ml # Bowel Movements 1 Current Medications: Meds: Current Medications Lorazepam (Ativan) 0.5 mg 1X ONCE PO Last administered on 02/01/17 19:14; Start 02/01/17 at 19:15; Stop 02/01/17 at 19:16; Status DC Ceftriaxone Sodium (Rocephin Im) 1 gm 1X ONCE IM Last administered on 20:45; Start 02/01/17 at 20:30; Stop 02/01/17 at 20:31; Status DC Acetaminophen (Tylenol) 650 mg PRN Q6HRS PRN PO MILD PAIN / TEMP Last administered on 02/19/17 15:57; Start 02/01/17 at 23:15 Multi-Ingredient Ointment (Analgesic [place]) 1 rosita PRN QID PRN TP MUSCLE PAIN; Start 02/01/17 at 23:15 Al Hydroxide/Mg Hydroxide (Mylanta Plus Xs) 15 ml PRN AFTMEALHC PRN PO DYSPEPSIA; Start 02/01/17 at 23:15 Magnesium Hydroxide (Milk Of Magnesia) 2,400 mg PRN QHS PRN PO CONSTIPATION Last administered on 02/13/17 02:05; Start 02/01/17 at 23:15 Olanzapine (ZyPREXA) 5 mg HS PO Last administered on 02/13/17 19:31; Start at 21:00; Stop 02/14/17 at 18:51; Status DC Quetiapine Fumarate (SEROquel) 25 mg BID PO Last administered on 02/08/17 08: 42; Start 02/02/17 at 09:00; Stop 02/08/17 at 19:16; Status DC Sertraline HCl (Zoloft) 100 mg DAILY PO Last administered on 02/06/17 08:01; Start 02/02/17 at 09:00; Stop 02/06/17 at 18:56; Status DC Olanzapine (ZyPREXA) 5 mg 1X ONCE PO Last administered on 02/02/17 00:27; Start 02/02/17 at 00:30; Stop 02/02/17 at 00:31; Status DC Alprazolam (Xanax) 0.5 mg BID PO Last administered on 02/13/17 11:42; Start at 09:00; Stop 02/13/17 at 18:35; Status DC Lorazepam (Ativan) 0.5 mg PRN Q4HRS PRN PO ANXIETY / AGITATION Last administered on 02/02/17 14:57; Start 02/02/17 at 00:15; Stop 02/02/17 at 15:59 ; Status DC Levothyroxine Sodium (Synthroid) 112 mcg DAILY06 PO Last administered on 06:07; Start 02/02/17 at 10:00 Naproxen (Naprosyn) 500 mg BID PO Last administered on 02/20/17 19:54; Start 02/02/17 at 09:00 Atorvastatin Calcium (Lipitor) 40 mg QHS PO Last administered on 02/20/17 19: 54; Start 02/02/17 at 21:00 Mirtazapine (Remeron) 7.5 mg QHS PO Last administered on 02/20/17 19:54; Start 02/02/17 at 21:00 Olanzapine (ZyPREXA ZYDIS) 2.5 mg PRN Q2HR PRN PO PSYCHOSIS Last administered on 02/20/17 20:21; Start 02/02/17 at 15:45 Alprazolam (Xanax) 0.25 mg PRN Q2HR PRN PO ANXIETY / AGITATION Last administered on 02/13/17 16:33; Start 02/02/17 at 15:45; Stop 02/13/17 at 18:35 ; Status DC Docusate Sodium (Colace) 100 mg BID PO Last administered on 02/20/17 19:53; Start 02/02/17 at 21:00 Polyethylene Glycol (miraLAX) 17 gm DAILY PO Last administered on 02/20/17 10: 24; Start 02/03/17 at 09:00 Vitamin D (Vitamin D3) 50,000 unit WEEKLY PO Last administered on 02/10/17 08: 38; Start 02/10/17 at 09:00 Divalproex Sodium (Depakote Sprinkles) 125 mg TID@0900,1300,1700 PO Last administered on 02/06/17 16:46; Start 02/04/17 at 09:00; Stop 02/06/17 at 18:56 ; Status DC Divalproex Sodium (Depakote Sprinkles) 250 mg TID@0900,1300,1700 PO Last administered on 02/09/17 09:13; Start 02/07/17 at 09:00; Stop 02/09/17 at 13:03 ; Status DC Fluvoxamine Maleate (Luvox) 50 mg HS PO Last administered on 02/13/17 19:32; Start 02/06/17 at 21:00; Stop 02/14/17 at 18:51; Status DC Quetiapine Fumarate (SEROquel) 25 mg TID PO Last administered on 02/09/17 09: 16; Start 02/09/17 at 09:00; Stop 02/09/17 at 13:30; Status DC Divalproex Sodium (Depakote Sprinkles) 375 mg TID@0900,1300,1700 PO Last administered on 02/16/17 08:01; Start 02/09/17 at 13:00; Stop 02/16/17 at 19:13 ; Status DC Quetiapine Fumarate (SEROquel) 37.5 mg TID PO Last administered on 02/12/17 12 :55; Start 02/09/17 at 14:00; Stop 02/12/17 at 17:56; Status DC Olanzapine (ZyPREXA) 5 mg 1X ONCE PO Last administered on 02/12/17 11:57; Start 02/12/17 at 12:00; Stop 02/12/17 at 12:01; Status DC Quetiapine Fumarate (SEROquel) 50 mg TID PO Last administered on 02/19/17 13: 43; Start 02/12/17 at 21:00; Stop 02/19/17 at 18:29; Status DC Lorazepam (Ativan) 0.5 mg PRN Q2HR PRN PO ANXIETY / AGITATION Last administered on 02/20/17 20:21; Start 02/13/17 at 18:45 Lorazepam (Ativan) 0.5 mg BID PO Last administered on 02/16/17 08:04; Start at 21:00; Stop 02/17/17 at 17:37; Status DC Fluvoxamine Maleate (Luvox) 75 mg HS PO Last administered on 02/15/17 19:11; Start 02/14/17 at 21:00; Stop 02/16/17 at 22:01; Status DC Trazodone HCl (Desyrel) 12.5 mg TID PO Last administered on 02/14/17 19:39; Start 02/14/17 at 19:00; Stop 02/14/17 at 21:12; Status DC Trazodone HCl (Desyrel) 12.5 mg TIDWMEALS PO Last administered on 02/19/17 07: 57; Start 02/15/17 at 08:00; Stop 02/19/17 at 09:00; Status DC Fluvoxamine Maleate (Luvox) 100 mg HS PO Last administered on 02/20/17 19:54; Start 02/16/17 at 21:00 Lorazepam (Ativan) 0.25 mg BID PO Last administered on 02/18/17 20:06; Start 02/17/17 at 21:00; Stop 02/18/17 at 22:00; Status DC Trazodone HCl (Desyrel) 12.5 mg QID PO Last administered on 02/20/17 19:53; Start 02/19/17 at 09:00 Risperidone (RisperDAL) 0.125 mg TID@0900,1300,1700 PO Last administered on 17:31; Start 02/20/17 at 09:00 Active Scripts Active Reported Atorvastatin Calcium 40 Mg Tablet 40 Mg PO QHS Naproxen 500 Mg Tablet 500 Mg PO BID Lorazepam 0.5 Mg Tablet 0.5 Mg PO PRN Q4HRS PRN Seroquel (Quetiapine Fumarate) 25 Mg Tablet 25 Mg PO BID Zoloft (Sertraline Hcl) 100 Mg Tablet 100 Mg PO DAILY Levothyroxine Sodium 112 Mcg Tablet 112 Mcg PO DAILYAC Olanzapine 5 Mg Tablet 5 Mg PO HS Alprazolam 0.5 Mg Tablet 0.5 Mg PO BID Diagnosis: Problems: (1) Anxiety disorder (2) Bipolar 1 disorder, mixed, moderate (3) Dementia in Alzheimer's disease with delusions (4) Dementia in Alzheimer's disease with depression (5) Dementia, vascular, with depression (6) Dementia, vascular, with delusions (7) Impulse control disorder ELEANOR BILLS MD Feb 20, 2017 21:11
[2017-02-20] MEDS: traZODone 50 MG TABLET. PO PRN ×2 (23:08→23:48)
--- NOTE | 2017-02-21 01:09 | PN ---
DATE: 02/19/2017 This late entry for 02/19/2017 covers elements not covered in my initial note of 02/19/2017. SUBJECTIVE: I met with the patient in the evening of 02/19/2017. The patient continues to have episodic yelling, delusional, believes people are trying to hurt her daughter, gets agitated. She has been quite disruptive on the unit. REVIEW OF SYSTEMS: Ambulation impaired, in a Broda chair. No CV, , pulmonary, eye, ENT system symptoms on review. Reliability poor. MENTAL STATUS EXAM: Oriented to herself. Insight, judgment, recent and remote memory, attention, concentration, fund of knowledge poor, consistent with her diagnosis mentioned in my initial note. The patient is quite psychotic. PLAN: Seroquel has been inadequate to assist with the actual delusions and we will change it to Risperdal 0.125 mg 3 times a day. Ativan is being tapered and discontinued for scheduled dosage. Continue Ativan p.r.n., Remeron together with Zyprexa p.r.n., Luvox 100 mg at bedtime, trazodone scheduled 12.5 mg 4 times a day. Reviewed drug interactions. Risk/benefit ratio favors no further change at this time. ELEANOR BILLS MD DR: JAIME/meli JOB#: [id number] / [id number]
[2017-02-21] MEDS: LORazepam 0.5 MG TABLET PO PRN ×4 (04:57→21:10)
[2017-02-21] MEDS: LEVOTHYROXINE 112 MCG TABLET PO SCH (05:22)
[2017-02-21 05:55] VITALS: BP 144/65
[2017-02-21] MEDS: risperiDONE 0.25 MG TABLET. PO SCH ×3 (08:46→17:03)
[2017-02-21] MEDS: DOCUSATE SODIUM 100 MG CAPSULE PO SCH ×2 (08:46→19:32)
[2017-02-21] MEDS: NAPROXEN 500 MG TABLET PO SCH ×2 (08:46→19:34)
[2017-02-21] MEDS: POLYETHYLENE GLYCOL 3350 17 GM PACKET. PO SCH (08:47)
[2017-02-21] MEDS: traZODone 50 MG TABLET. PO SCH ×4 (08:47→19:33)
[2017-02-21 15:59] VITALS: BP 145/75
[2017-02-21] MEDS: ATORVASTATIN CALCIUM 20 MG TABLET PO SCH (19:33)
[2017-02-21] MEDS: MIRTAZAPINE 15 MG TABLET PO SCH (19:37)
--- NOTE | 2017-02-21 20:54 | PDOC ---
Exam Jeanmarie Demential Exam: Jeanmarie Note: Please also refer to the separate dictated note~for this date of service dictated separately.~Patient seen individually. Discussed the patient with Nursing staff reviewed the chart.~Reviewed interim history and current functioning. Reviewed vital signs,~Labs/ Radiology~and current medications noted below. Continue current treatment with the changes noted in the dictated addendum note Assessment: Vital Signs: Vital Signs Date Time Temp Pulse Resp B/P (MAP) Pulse Ox O2 Delivery O2 Flow Rate FiO2 02/21/17 15:59 99.7 65 20 145/75 (98) 95 02/21/17 05:55 Room Air I&O Intake and Output 02/22/17 07:00 Intake Total 840 ml Balance 840 ml Intake Oral 840 ml Current Medications: Meds: Current Medications Lorazepam (Ativan) 0.5 mg 1X ONCE PO Last administered on 02/01/17 19:14; Start 02/01/17 at 19:15; Stop 02/01/17 at 19:16; Status DC Ceftriaxone Sodium (Rocephin Im) 1 gm 1X ONCE IM Last administered on 20:45; Start 02/01/17 at 20:30; Stop 02/01/17 at 20:31; Status DC Acetaminophen (Tylenol) 650 mg PRN Q6HRS PRN PO MILD PAIN / TEMP Last administered on 02/19/17 15:57; Start 02/01/17 at 23:15 Multi-Ingredient Ointment (Analgesic [place]) 1 rosita PRN QID PRN TP MUSCLE PAIN; Start 02/01/17 at 23:15 Al Hydroxide/Mg Hydroxide (Mylanta Plus Xs) 15 ml PRN AFTMEALHC PRN PO DYSPEPSIA; Start 02/01/17 at 23:15 Magnesium Hydroxide (Milk Of Magnesia) 2,400 mg PRN QHS PRN PO CONSTIPATION Last administered on 02/13/17 02:05; Start 02/01/17 at 23:15 Olanzapine (ZyPREXA) 5 mg HS PO Last administered on 02/13/17 19:31; Start at 21:00; Stop 02/14/17 at 18:51; Status DC Quetiapine Fumarate (SEROquel) 25 mg BID PO Last administered on 02/08/17 08: 42; Start 02/02/17 at 09:00; Stop 02/08/17 at 19:16; Status DC Sertraline HCl (Zoloft) 100 mg DAILY PO Last administered on 02/06/17 08:01; Start 02/02/17 at 09:00; Stop 02/06/17 at 18:56; Status DC Olanzapine (ZyPREXA) 5 mg 1X ONCE PO Last administered on 02/02/17 00:27; Start 02/02/17 at 00:30; Stop 02/02/17 at 00:31; Status DC Alprazolam (Xanax) 0.5 mg BID PO Last administered on 02/13/17 11:42; Start at 09:00; Stop 02/13/17 at 18:35; Status DC Lorazepam (Ativan) 0.5 mg PRN Q4HRS PRN PO ANXIETY / AGITATION Last administered on 02/02/17 14:57; Start 02/02/17 at 00:15; Stop 02/02/17 at 15:59 ; Status DC Levothyroxine Sodium (Synthroid) 112 mcg DAILY06 PO Last administered on 05:22; Start 02/02/17 at 10:00 Naproxen (Naprosyn) 500 mg BID PO Last administered on 02/21/17 19:34; Start 02/02/17 at 09:00 Atorvastatin Calcium (Lipitor) 40 mg QHS PO Last administered on 02/21/17 19: 33; Start 02/02/17 at 21:00 Mirtazapine (Remeron) 7.5 mg QHS PO Last administered on 02/20/17 23:08; Start 02/02/17 at 21:00; Stop 02/21/17 at 19:38; Status DC Olanzapine (ZyPREXA ZYDIS) 2.5 mg PRN Q2HR PRN PO PSYCHOSIS Last administered on 02/21/17 10:53; Start 02/02/17 at 15:45 Alprazolam (Xanax) 0.25 mg PRN Q2HR PRN PO ANXIETY / AGITATION Last administered on 02/13/17 16:33; Start 02/02/17 at 15:45; Stop 02/13/17 at 18:35 ; Status DC Docusate Sodium (Colace) 100 mg BID PO Last administered on 02/21/17 19:32; Start 02/02/17 at 21:00 Polyethylene Glycol (miraLAX) 17 gm DAILY PO Last administered on 02/21/17 08: 47; Start 02/03/17 at 09:00 Vitamin D (Vitamin D3) 50,000 unit WEEKLY PO Last administered on 02/10/17 08: 38; Start 02/10/17 at 09:00 Divalproex Sodium (Depakote Sprinkles) 125 mg TID@0900,1300,1700 PO Last administered on 02/06/17 16:46; Start 02/04/17 at 09:00; Stop 02/06/17 at 18:56 ; Status DC Divalproex Sodium (Depakote Sprinkles) 250 mg TID@0900,1300,1700 PO Last administered on 02/09/17 09:13; Start 02/07/17 at 09:00; Stop 02/09/17 at 13:03 ; Status DC Fluvoxamine Maleate (Luvox) 50 mg HS PO Last administered on 02/13/17 19:32; Start 02/06/17 at 21:00; Stop 02/14/17 at 18:51; Status DC Quetiapine Fumarate (SEROquel) 25 mg TID PO Last administered on 02/09/17 09: 16; Start 02/09/17 at 09:00; Stop 02/09/17 at 13:30; Status DC Divalproex Sodium (Depakote Sprinkles) 375 mg TID@0900,1300,1700 PO Last administered on 02/16/17 08:01; Start 02/09/17 at 13:00; Stop 02/16/17 at 19:13 ; Status DC Quetiapine Fumarate (SEROquel) 37.5 mg TID PO Last administered on 02/12/17 12 :55; Start 02/09/17 at 14:00; Stop 02/12/17 at 17:56; Status DC Olanzapine (ZyPREXA) 5 mg 1X ONCE PO Last administered on 02/12/17 11:57; Start 02/12/17 at 12:00; Stop 02/12/17 at 12:01; Status DC Quetiapine Fumarate (SEROquel) 50 mg TID PO Last administered on 02/19/17 13: 43; Start 02/12/17 at 21:00; Stop 02/19/17 at 18:29; Status DC Lorazepam (Ativan) 0.5 mg PRN Q2HR PRN PO ANXIETY / AGITATION Last administered on 02/21/17 15:14; Start 02/13/17 at 18:45 Lorazepam (Ativan) 0.5 mg BID PO Last administered on 02/16/17 08:04; Start at 21:00; Stop 02/17/17 at 17:37; Status DC Fluvoxamine Maleate (Luvox) 75 mg HS PO Last administered on 02/15/17 19:11; Start 02/14/17 at 21:00; Stop 02/16/17 at 22:01; Status DC Trazodone HCl (Desyrel) 12.5 mg TID PO Last administered on 02/14/17 19:39; Start 02/14/17 at 19:00; Stop 02/14/17 at 21:12; Status DC Trazodone HCl (Desyrel) 12.5 mg TIDWMEALS PO Last administered on 02/19/17 07: 57; Start 02/15/17 at 08:00; Stop 02/19/17 at 09:00; Status DC Fluvoxamine Maleate (Luvox) 100 mg HS PO Last administered on 02/21/17 19:32; Start 02/16/17 at 21:00 Lorazepam (Ativan) 0.25 mg BID PO Last administered on 02/18/17 20:06; Start 02/17/17 at 21:00; Stop 02/18/17 at 22:00; Status DC Trazodone HCl (Desyrel) 12.5 mg QID PO Last administered on 02/21/17 19:33; Start 02/19/17 at 09:00 Risperidone (RisperDAL) 0.125 mg TID@0900,1300,1700 PO Last administered on 17:31; Start 02/20/17 at 09:00; Stop 02/20/17 at 22:50; Status DC Mirtazapine (Remeron) 15 mg QHS PO Last administered on 02/21/17 19:37; Start 02/21/17 at 21:00 Trazodone HCl (Desyrel) 50 mg PRN QHS PRN PO INSOMNIA, MAY REPEAT X1 Last administered on 02/20/17 23:48; Start 02/20/17 at 22:45 Risperidone (RisperDAL) 0.25 mg TID@0900,1300,1700 PO Last administered on 02/21 17:03; Start 02/21/17 at 09:00 Active Scripts Active Reported Atorvastatin Calcium 40 Mg Tablet 40 Mg PO QHS Naproxen 500 Mg Tablet 500 Mg PO BID Lorazepam 0.5 Mg Tablet 0.5 Mg PO PRN Q4HRS PRN Seroquel (Quetiapine Fumarate) 25 Mg Tablet 25 Mg PO BID Zoloft (Sertraline Hcl) 100 Mg Tablet 100 Mg PO DAILY Levothyroxine Sodium 112 Mcg Tablet 112 Mcg PO DAILYAC Olanzapine 5 Mg Tablet 5 Mg PO HS Alprazolam 0.5 Mg Tablet 0.5 Mg PO BID Diagnosis: Problems: (1) Anxiety disorder (2) Bipolar 1 disorder, mixed, moderate (3) Dementia in Alzheimer's disease with delusions (4) Dementia in Alzheimer's disease with depression (5) Dementia, vascular, with depression (6) Dementia, vascular, with delusions (7) Impulse control disorder ELEANOR BILLS MD Feb 21, 2017 20:54
[2017-02-21] MEDS: traZODone 50 MG TABLET. PO PRN (21:10)
[2017-02-22] MEDS: LEVOTHYROXINE 112 MCG TABLET PO SCH (05:27)
[2017-02-22 06:29] VITALS: BP 179/92
[2017-02-22] MEDS: risperiDONE 0.25 MG TABLET. PO SCH ×3 (08:06→16:26)
[2017-02-22] MEDS: traZODone 50 MG TABLET. PO SCH ×4 (08:07→20:22)
[2017-02-22] MEDS: DOCUSATE SODIUM 100 MG CAPSULE PO SCH ×2 (08:08→20:21)
[2017-02-22] MEDS: POLYETHYLENE GLYCOL 3350 17 GM PACKET. PO SCH (08:09)
[2017-02-22] MEDS: NAPROXEN 500 MG TABLET PO SCH ×2 (08:09→20:22)
--- NOTE | 2017-02-22 09:31 | PN ---
DATE: 02/20/2017 This late entry 02/20/2017 covers elements not covered in my initial note of 02/20/2017. I met with the patient evening of 02/20/2017. The patient continues to yell out constantly, remains paranoid. She woke up at night, screaming and nursing staff called me around midnight. Prior to that, she had received Ativan and Zyprexa at 11:40 a.m. 1600 hours, which were ineffective. After the midnight call from staff, we did add trazodone to help with insomnia since she was quite disruptive on the unit due to her yelling. REVIEW OF SYSTEMS: Ambulation impaired in Broda chair. No CV, , pulmonary, eye, ENT system symptoms on review. Reliability poor. MENTAL STATUS EXAM: Oriented to herself. Insight, judgment, recent and remote memory, attention, concentration, fund of knowledge poor, consistent with her diagnosis mentioned in my initial note. PLAN: Continue current psychotropics, reviewed drug interactions, risk/benefit ratio favors no further change, but we may need to increase the Risperdal on 02/21 if psychotic symptoms persist since these make the agitation, yelling much worse. MAN Aden BILLS MD DR: JAIME/meli JOB#: [id number] / [id number]
[2017-02-22] MEDS: LORazepam 0.5 MG TABLET PO PRN (12:00)
[2017-02-22 16:44] VITALS: BP 162/74
[2017-02-22] MEDS: MIRTAZAPINE 15 MG TABLET PO SCH (20:22)
[2017-02-22] MEDS: ATORVASTATIN CALCIUM 20 MG TABLET PO SCH (20:22)
--- NOTE | 2017-02-22 21:04 | PDOC ---
Exam Jeanmarie Demential Exam: Jeanmarie Note: Please also refer to the separate dictated note~for this date of service dictated separately.~Patient seen individually. Discussed the patient with Nursing staff reviewed the chart.~Reviewed interim history and current functioning. Reviewed vital signs,~Labs/ Radiology~and current medications noted below. Continue current treatment with the changes noted in the dictated addendum note Assessment: Vital Signs: Vital Signs Date Time Temp Pulse Resp B/P (MAP) Pulse Ox O2 Delivery O2 Flow Rate FiO2 02/22/17 16:44 98.7 92 22 162/74 (103) 96 02/21/17 05:55 Room Air I&O Intake and Output 02/23/17 07:00 Intake Total 720 ml Balance 720 ml Intake Oral 720 ml Current Medications: Meds: Current Medications Lorazepam (Ativan) 0.5 mg 1X ONCE PO Last administered on 02/01/17 19:14; Start 02/01/17 at 19:15; Stop 02/01/17 at 19:16; Status DC Ceftriaxone Sodium (Rocephin Im) 1 gm 1X ONCE IM Last administered on 20:45; Start 02/01/17 at 20:30; Stop 02/01/17 at 20:31; Status DC Acetaminophen (Tylenol) 650 mg PRN Q6HRS PRN PO MILD PAIN / TEMP Last administered on 02/19/17 15:57; Start 02/01/17 at 23:15 Multi-Ingredient Ointment (Analgesic [place]) 1 rosita PRN QID PRN TP MUSCLE PAIN; Start 02/01/17 at 23:15 Al Hydroxide/Mg Hydroxide (Mylanta Plus Xs) 15 ml PRN AFTMEALHC PRN PO DYSPEPSIA; Start 02/01/17 at 23:15 Magnesium Hydroxide (Milk Of Magnesia) 2,400 mg PRN QHS PRN PO CONSTIPATION Last administered on 02/13/17 02:05; Start 02/01/17 at 23:15 Olanzapine (ZyPREXA) 5 mg HS PO Last administered on 02/13/17 19:31; Start at 21:00; Stop 02/14/17 at 18:51; Status DC Quetiapine Fumarate (SEROquel) 25 mg BID PO Last administered on 02/08/17 08: 42; Start 02/02/17 at 09:00; Stop 02/08/17 at 19:16; Status DC Sertraline HCl (Zoloft) 100 mg DAILY PO Last administered on 02/06/17 08:01; Start 02/02/17 at 09:00; Stop 02/06/17 at 18:56; Status DC Olanzapine (ZyPREXA) 5 mg 1X ONCE PO Last administered on 02/02/17 00:27; Start 02/02/17 at 00:30; Stop 02/02/17 at 00:31; Status DC Alprazolam (Xanax) 0.5 mg BID PO Last administered on 02/13/17 11:42; Start at 09:00; Stop 02/13/17 at 18:35; Status DC Lorazepam (Ativan) 0.5 mg PRN Q4HRS PRN PO ANXIETY / AGITATION Last administered on 02/02/17 14:57; Start 02/02/17 at 00:15; Stop 02/02/17 at 15:59 ; Status DC Levothyroxine Sodium (Synthroid) 112 mcg DAILY06 PO Last administered on 05:27; Start 02/02/17 at 10:00 Naproxen (Naprosyn) 500 mg BID PO Last administered on 02/22/17 20:22; Start 02/02/17 at 09:00 Atorvastatin Calcium (Lipitor) 40 mg QHS PO Last administered on 02/22/17 20: 22; Start 02/02/17 at 21:00 Mirtazapine (Remeron) 7.5 mg QHS PO Last administered on 02/20/17 23:08; Start 02/02/17 at 21:00; Stop 02/21/17 at 19:38; Status DC Olanzapine (ZyPREXA ZYDIS) 2.5 mg PRN Q2HR PRN PO PSYCHOSIS Last administered on 02/21/17 21:10; Start 02/02/17 at 15:45 Alprazolam (Xanax) 0.25 mg PRN Q2HR PRN PO ANXIETY / AGITATION Last administered on 02/13/17 16:33; Start 02/02/17 at 15:45; Stop 02/13/17 at 18:35 ; Status DC Docusate Sodium (Colace) 100 mg BID PO Last administered on 02/22/17 20:21; Start 02/02/17 at 21:00 Polyethylene Glycol (miraLAX) 17 gm DAILY PO Last administered on 02/22/17 08: 09; Start 02/03/17 at 09:00 Vitamin D (Vitamin D3) 50,000 unit WEEKLY PO Last administered on 02/10/17 08: 38; Start 02/10/17 at 09:00 Divalproex Sodium (Depakote Sprinkles) 125 mg TID@0900,1300,1700 PO Last administered on 02/06/17 16:46; Start 02/04/17 at 09:00; Stop 02/06/17 at 18:56 ; Status DC Divalproex Sodium (Depakote Sprinkles) 250 mg TID@0900,1300,1700 PO Last administered on 02/09/17 09:13; Start 02/07/17 at 09:00; Stop 02/09/17 at 13:03 ; Status DC Fluvoxamine Maleate (Luvox) 50 mg HS PO Last administered on 02/13/17 19:32; Start 02/06/17 at 21:00; Stop 02/14/17 at 18:51; Status DC Quetiapine Fumarate (SEROquel) 25 mg TID PO Last administered on 02/09/17 09: 16; Start 02/09/17 at 09:00; Stop 02/09/17 at 13:30; Status DC Divalproex Sodium (Depakote Sprinkles) 375 mg TID@0900,1300,1700 PO Last administered on 02/16/17 08:01; Start 02/09/17 at 13:00; Stop 02/16/17 at 19:13 ; Status DC Quetiapine Fumarate (SEROquel) 37.5 mg TID PO Last administered on 02/12/17 12 :55; Start 02/09/17 at 14:00; Stop 02/12/17 at 17:56; Status DC Olanzapine (ZyPREXA) 5 mg 1X ONCE PO Last administered on 02/12/17 11:57; Start 02/12/17 at 12:00; Stop 02/12/17 at 12:01; Status DC Quetiapine Fumarate (SEROquel) 50 mg TID PO Last administered on 02/19/17 13: 43; Start 02/12/17 at 21:00; Stop 02/19/17 at 18:29; Status DC Lorazepam (Ativan) 0.5 mg PRN Q2HR PRN PO ANXIETY / AGITATION Last administered on 02/22/17 12:00; Start 02/13/17 at 18:45 Lorazepam (Ativan) 0.5 mg BID PO Last administered on 02/16/17 08:04; Start at 21:00; Stop 02/17/17 at 17:37; Status DC Fluvoxamine Maleate (Luvox) 75 mg HS PO Last administered on 02/15/17 19:11; Start 02/14/17 at 21:00; Stop 02/16/17 at 22:01; Status DC Trazodone HCl (Desyrel) 12.5 mg TID PO Last administered on 02/14/17 19:39; Start 02/14/17 at 19:00; Stop 02/14/17 at 21:12; Status DC Trazodone HCl (Desyrel) 12.5 mg TIDWMEALS PO Last administered on 02/19/17 07: 57; Start 02/15/17 at 08:00; Stop 02/19/17 at 09:00; Status DC Fluvoxamine Maleate (Luvox) 100 mg HS PO Last administered on 02/22/17 20:22; Start 02/16/17 at 21:00 Lorazepam (Ativan) 0.25 mg BID PO Last administered on 02/18/17 20:06; Start 02/17/17 at 21:00; Stop 02/18/17 at 22:00; Status DC Trazodone HCl (Desyrel) 12.5 mg QID PO Last administered on 02/22/17 20:22; Start 02/19/17 at 09:00 Risperidone (RisperDAL) 0.125 mg TID@0900,1300,1700 PO Last administered on 17:31; Start 02/20/17 at 09:00; Stop 02/20/17 at 22:50; Status DC Mirtazapine (Remeron) 15 mg QHS PO Last administered on 02/22/17 20:22; Start 02/21/17 at 21:00 Trazodone HCl (Desyrel) 50 mg PRN QHS PRN PO INSOMNIA, MAY REPEAT X1 Last administered on 02/21/17 21:10; Start 02/20/17 at 22:45 Risperidone (RisperDAL) 0.25 mg TID@0900,1300,1700 PO Last administered on 02/22 16:26; Start 02/21/17 at 09:00 Active Scripts Active Reported Atorvastatin Calcium 40 Mg Tablet 40 Mg PO QHS Naproxen 500 Mg Tablet 500 Mg PO BID Lorazepam 0.5 Mg Tablet 0.5 Mg PO PRN Q4HRS PRN Seroquel (Quetiapine Fumarate) 25 Mg Tablet 25 Mg PO BID Zoloft (Sertraline Hcl) 100 Mg Tablet 100 Mg PO DAILY Levothyroxine Sodium 112 Mcg Tablet 112 Mcg PO DAILYAC Olanzapine 5 Mg Tablet 5 Mg PO HS Alprazolam 0.5 Mg Tablet 0.5 Mg PO BID Diagnosis: Problems: (1) Anxiety disorder (2) Bipolar 1 disorder, mixed, moderate (3) Dementia in Alzheimer's disease with delusions (4) Dementia in Alzheimer's disease with depression (5) Dementia, vascular, with depression (6) Dementia, vascular, with delusions (7) Impulse control disorder ELEANOR BILLS MD Feb 22, 2017 21:04
[2017-02-23] MEDS: LORazepam 0.5 MG TABLET PO PRN ×2 (00:33→21:08)
[2017-02-23] MEDS: traZODone 50 MG TABLET. PO PRN (00:34)
[2017-02-23] MEDS: LEVOTHYROXINE 112 MCG TABLET PO SCH (05:33)
[2017-02-23] MEDS: risperiDONE 0.25 MG TABLET. PO SCH ×3 (11:53→17:54)
[2017-02-23] MEDS: POLYETHYLENE GLYCOL 3350 17 GM PACKET. PO SCH (11:53)
[2017-02-23] MEDS: DOCUSATE SODIUM 100 MG CAPSULE PO SCH ×2 (11:53→20:27)
[2017-02-23] MEDS: NAPROXEN 500 MG TABLET PO SCH ×2 (11:53→20:27)
[2017-02-23] MEDS: traZODone 50 MG TABLET. PO SCH ×4 (11:53→20:26)
--- NOTE | 2017-02-23 12:25 | PN ---
DATE: 02/21/2017 PSYCHIATRIC PROGRESS NOTE This late entry 02/21/2017 covers elements, not covered in my initial note of 02/21/2017. SUBJECTIVE: I met with the patient in the evening of 02/21/2017. Per nursing report, the patient continues to have hallucinations, was seeing people in bed who are trying to kill her. [place] the [place] 7 o'clock so that she could get her daughter off the ship. She received p.r.n. Ativan, Zyprexa at 20:21 the previous evening and 4:58 a.m. and 10:55 a.m. and at 1500, she received Ativan p.r.n., all in an attempt to help reduce the agitation, yelling, screaming, repetitive disruptive verbally. Had a message to call the patient's daughter, Silvina Licona [phone]. I returned the call and left a detailed message on the voicemail about the patient's medications, progress, diagnosis, aftercare plans. REVIEW OF SYSTEMS: Ambulation impaired, in a Broda chair. No CV, , pulmonary, eye, ENT system symptoms on review. MENTAL STATUS EXAM: Oriented to herself. Insight, judgment, recent and remote memory, attention, concentration, fund of knowledge poor, consistent with her diagnosis. CT head showed hydrocephalus. LABORATORY DATA: Reviewed. IMPRESSION: Unchanged from initial note. PLAN: Continue current psychotropics and Risperdal has been increased to 0.25 mg 3 times a day in place of the ____ 0.125 mg 3 times a day. We will make further adjustments as clinically indicated. Hopefully, as the psychotic symptoms improve, her mood lability, yelling agitation will improve as well, but I am carefully considering the risk/benefit ratio of the Risperdal as I increase it. ELEANOR BILLS MD DR: JAIME/meli JOB#: [id number] / [id number]
[2017-02-23 16:26] VITALS: BP 116/67
[2017-02-23] MEDS: ATORVASTATIN CALCIUM 20 MG TABLET PO SCH (20:26)
[2017-02-23] MEDS: MIRTAZAPINE 15 MG TABLET PO SCH (20:26)
--- NOTE | 2017-02-23 21:08 | PDOC ---
Exam Jeanmarie Demential Exam: Jeanmarie Note: Please also refer to the separate dictated note~for this date of service dictated separately.~Patient seen individually. Discussed the patient with Nursing staff reviewed the chart.~Reviewed interim history and current functioning. Reviewed vital signs,~Labs/ Radiology~and current medications noted below. Continue current treatment with the changes noted in the dictated addendum note Assessment: Vital Signs: Vital Signs Date Time Temp Pulse Resp B/P (MAP) Pulse Ox O2 Delivery O2 Flow Rate FiO2 02/23/17 16:26 98.1 85 18 116/67 (83) 92 02/21/17 05:55 Room Air I&O Intake and Output 02/24/17 07:00 Intake Total 780 ml Balance 780 ml Intake Oral 780 ml Current Medications: Meds: Current Medications Lorazepam (Ativan) 0.5 mg 1X ONCE PO Last administered on 02/01/17 19:14; Start 02/01/17 at 19:15; Stop 02/01/17 at 19:16; Status DC Ceftriaxone Sodium (Rocephin Im) 1 gm 1X ONCE IM Last administered on 20:45; Start 02/01/17 at 20:30; Stop 02/01/17 at 20:31; Status DC Acetaminophen (Tylenol) 650 mg PRN Q6HRS PRN PO MILD PAIN / TEMP Last administered on 02/19/17 15:57; Start 02/01/17 at 23:15 Multi-Ingredient Ointment (Analgesic [place]) 1 rosita PRN QID PRN TP MUSCLE PAIN; Start 02/01/17 at 23:15 Al Hydroxide/Mg Hydroxide (Mylanta Plus Xs) 15 ml PRN AFTMEALHC PRN PO DYSPEPSIA; Start 02/01/17 at 23:15 Magnesium Hydroxide (Milk Of Magnesia) 2,400 mg PRN QHS PRN PO CONSTIPATION Last administered on 02/13/17 02:05; Start 02/01/17 at 23:15 Olanzapine (ZyPREXA) 5 mg HS PO Last administered on 02/13/17 19:31; Start at 21:00; Stop 02/14/17 at 18:51; Status DC Quetiapine Fumarate (SEROquel) 25 mg BID PO Last administered on 02/08/17 08: 42; Start 02/02/17 at 09:00; Stop 02/08/17 at 19:16; Status DC Sertraline HCl (Zoloft) 100 mg DAILY PO Last administered on 02/06/17 08:01; Start 02/02/17 at 09:00; Stop 02/06/17 at 18:56; Status DC Olanzapine (ZyPREXA) 5 mg 1X ONCE PO Last administered on 02/02/17 00:27; Start 02/02/17 at 00:30; Stop 02/02/17 at 00:31; Status DC Alprazolam (Xanax) 0.5 mg BID PO Last administered on 02/13/17 11:42; Start at 09:00; Stop 02/13/17 at 18:35; Status DC Lorazepam (Ativan) 0.5 mg PRN Q4HRS PRN PO ANXIETY / AGITATION Last administered on 02/02/17 14:57; Start 02/02/17 at 00:15; Stop 02/02/17 at 15:59 ; Status DC Levothyroxine Sodium (Synthroid) 112 mcg DAILY06 PO Last administered on 05:33; Start 02/02/17 at 10:00 Naproxen (Naprosyn) 500 mg BID PO Last administered on 02/23/17 20:27; Start 02/02/17 at 09:00 Atorvastatin Calcium (Lipitor) 40 mg QHS PO Last administered on 02/23/17 20: 26; Start 02/02/17 at 21:00 Mirtazapine (Remeron) 7.5 mg QHS PO Last administered on 02/20/17 23:08; Start 02/02/17 at 21:00; Stop 02/21/17 at 19:38; Status DC Olanzapine (ZyPREXA ZYDIS) 2.5 mg PRN Q2HR PRN PO PSYCHOSIS Last administered on 02/23/17 20:30; Start 02/02/17 at 15:45 Alprazolam (Xanax) 0.25 mg PRN Q2HR PRN PO ANXIETY / AGITATION Last administered on 02/13/17 16:33; Start 02/02/17 at 15:45; Stop 02/13/17 at 18:35 ; Status DC Docusate Sodium (Colace) 100 mg BID PO Last administered on 02/23/17 20:27; Start 02/02/17 at 21:00 Polyethylene Glycol (miraLAX) 17 gm DAILY PO Last administered on 02/23/17 11: 53; Start 02/03/17 at 09:00 Vitamin D (Vitamin D3) 50,000 unit WEEKLY PO Last administered on 02/10/17 08: 38; Start 02/10/17 at 09:00 Divalproex Sodium (Depakote Sprinkles) 125 mg TID@0900,1300,1700 PO Last administered on 02/06/17 16:46; Start 02/04/17 at 09:00; Stop 02/06/17 at 18:56 ; Status DC Divalproex Sodium (Depakote Sprinkles) 250 mg TID@0900,1300,1700 PO Last administered on 02/09/17 09:13; Start 02/07/17 at 09:00; Stop 02/09/17 at 13:03 ; Status DC Fluvoxamine Maleate (Luvox) 50 mg HS PO Last administered on 02/13/17 19:32; Start 02/06/17 at 21:00; Stop 02/14/17 at 18:51; Status DC Quetiapine Fumarate (SEROquel) 25 mg TID PO Last administered on 02/09/17 09: 16; Start 02/09/17 at 09:00; Stop 02/09/17 at 13:30; Status DC Divalproex Sodium (Depakote Sprinkles) 375 mg TID@0900,1300,1700 PO Last administered on 02/16/17 08:01; Start 02/09/17 at 13:00; Stop 02/16/17 at 19:13 ; Status DC Quetiapine Fumarate (SEROquel) 37.5 mg TID PO Last administered on 02/12/17 12 :55; Start 02/09/17 at 14:00; Stop 02/12/17 at 17:56; Status DC Olanzapine (ZyPREXA) 5 mg 1X ONCE PO Last administered on 02/12/17 11:57; Start 02/12/17 at 12:00; Stop 02/12/17 at 12:01; Status DC Quetiapine Fumarate (SEROquel) 50 mg TID PO Last administered on 02/19/17 13: 43; Start 02/12/17 at 21:00; Stop 02/19/17 at 18:29; Status DC Lorazepam (Ativan) 0.5 mg PRN Q2HR PRN PO ANXIETY / AGITATION Last administered on 02/23/17 00:33; Start 02/13/17 at 18:45 Lorazepam (Ativan) 0.5 mg BID PO Last administered on 02/16/17 08:04; Start at 21:00; Stop 02/17/17 at 17:37; Status DC Fluvoxamine Maleate (Luvox) 75 mg HS PO Last administered on 02/15/17 19:11; Start 02/14/17 at 21:00; Stop 02/16/17 at 22:01; Status DC Trazodone HCl (Desyrel) 12.5 mg TID PO Last administered on 02/14/17 19:39; Start 02/14/17 at 19:00; Stop 02/14/17 at 21:12; Status DC Trazodone HCl (Desyrel) 12.5 mg TIDWMEALS PO Last administered on 02/19/17 07: 57; Start 02/15/17 at 08:00; Stop 02/19/17 at 09:00; Status DC Fluvoxamine Maleate (Luvox) 100 mg HS PO Last administered on 02/23/17 20:26; Start 02/16/17 at 21:00 Lorazepam (Ativan) 0.25 mg BID PO Last administered on 02/18/17 20:06; Start 02/17/17 at 21:00; Stop 02/18/17 at 22:00; Status DC Trazodone HCl (Desyrel) 12.5 mg QID PO Last administered on 02/23/17 20:26; Start 02/19/17 at 09:00 Risperidone (RisperDAL) 0.125 mg TID@0900,1300,1700 PO Last administered on 17:31; Start 02/20/17 at 09:00; Stop 02/20/17 at 22:50; Status DC Mirtazapine (Remeron) 15 mg QHS PO Last administered on 02/23/17 20:26; Start 02/21/17 at 21:00 Trazodone HCl (Desyrel) 50 mg PRN QHS PRN PO INSOMNIA, MAY REPEAT X1 Last administered on 02/23/17 00:34; Start 02/20/17 at 22:45; Stop 02/23/17 at 10:59 ; Status DC Risperidone (RisperDAL) 0.25 mg TID@0900,1300,1700 PO Last administered on 02/23 17:54; Start 02/21/17 at 09:00 Trazodone HCl (Desyrel) 100 mg PRN QHS PRN PO INSOMNIA, MAY REPEAT X1; Start 02/23/17 at 11:15 Active Scripts Active Reported Atorvastatin Calcium 40 Mg Tablet 40 Mg PO QHS Naproxen 500 Mg Tablet 500 Mg PO BID Lorazepam 0.5 Mg Tablet 0.5 Mg PO PRN Q4HRS PRN Seroquel (Quetiapine Fumarate) 25 Mg Tablet 25 Mg PO BID Zoloft (Sertraline Hcl) 100 Mg Tablet 100 Mg PO DAILY Levothyroxine Sodium 112 Mcg Tablet 112 Mcg PO DAILYAC Olanzapine 5 Mg Tablet 5 Mg PO HS Alprazolam 0.5 Mg Tablet 0.5 Mg PO BID Diagnosis: Problems: (1) Anxiety disorder (2) Bipolar 1 disorder, mixed, moderate (3) Dementia in Alzheimer's disease with delusions (4) Dementia in Alzheimer's disease with depression (5) Dementia, vascular, with depression (6) Dementia, vascular, with delusions (7) Impulse control disorder ELEANOR BILLS MD Feb 23, 2017 21:08
[2017-02-23] MEDS: traZODone 100 MG TABLET. PO PRN (21:35)
[2017-02-24] MEDS: LEVOTHYROXINE 112 MCG TABLET PO SCH (05:44)
[2017-02-24] MEDS: DOCUSATE SODIUM 100 MG CAPSULE PO SCH ×2 (10:02→20:13)
[2017-02-24] MEDS: CHOLECALCIFEROL (VITAMIN D3) 50,000 UNIT CAPSULE PO SCH (10:12)
[2017-02-24] MEDS: risperiDONE 0.25 MG TABLET. PO SCH ×3 (10:12→17:20)
[2017-02-24] MEDS: traZODone 50 MG TABLET. PO SCH ×4 (10:13→20:12)
[2017-02-24] MEDS: POLYETHYLENE GLYCOL 3350 17 GM PACKET. PO SCH (10:14)
[2017-02-24] MEDS: NAPROXEN 500 MG TABLET PO SCH ×2 (10:35→20:13)
[2017-02-24] MEDS: LORazepam 0.5 MG TABLET PO PRN ×2 (11:23→14:54)
[2017-02-24 15:54] VITALS: BP 106/58
[2017-02-24] MEDS: MIRTAZAPINE 15 MG TABLET PO SCH (20:13)
[2017-02-24] MEDS: ATORVASTATIN CALCIUM 20 MG TABLET PO SCH (20:13)
[2017-02-24] MEDS: carBAMazepine 200 MG TABLET PO SCH (20:14)
--- NOTE | 2017-02-24 20:29 | PN ---
DATE: 02/22/2017 This is a late entry for 02/22/2017 and covers elements not covered in my initial note of 02/22/2017. I met with the patient evening of 02/22/2017. The patient continued to have yelling, mood lability, but somewhat improved per nursing staff, still screaming, "Help me, help me, help me" repeatedly and when staff go to her, nothing she needs help with. She received Ativan p.r.n. at noon, which seemed to help a little. REVIEW OF SYSTEMS: Ambulation impaired. No CV, , pulmonary, eye, ENT system symptoms on review. MENTAL STATUS EXAM: Oriented to herself. Insight, judgment, recent and remote memory, attention, concentration, fund of knowledge poor, consistent with her diagnosis mentioned in my initial note. I helped feed her most of her supper and she ate it rather well. IMPRESSION: Unchanged from initial note. PLAN: Continue current psychotropics. We have just increased the Risperdal. We will see how she does with this for the next day or two before making further changes. Reviewed drug interactions, risk/benefit ratio favors no further change. MAN Aden BILLS MD DR: JAIME/meli JOB#: [id number] / [id number]
--- NOTE | 2017-02-24 21:17 | PDOC ---
Exam Jeanmarie Demential Exam: Jeanmarie Note: Please also refer to the separate dictated note~for this date of service dictated separately.~Patient seen individually. Discussed the patient with Nursing staff reviewed the chart.~Reviewed interim history and current functioning. Reviewed vital signs,~Labs/ Radiology~and current medications noted below. Continue current treatment with the changes noted in the dictated addendum note Assessment: Vital Signs: Vital Signs Date Time Temp Pulse Resp B/P (MAP) Pulse Ox O2 Delivery O2 Flow Rate FiO2 02/24/17 15:54 97.8 80 20 106/58 (74) 92 02/21/17 05:55 Room Air I&O Intake and Output 02/25/17 07:00 Intake Total 840 ml Balance 840 ml Intake Oral 840 ml # Bowel Movements 2 Current Medications: Meds: Current Medications Lorazepam (Ativan) 0.5 mg 1X ONCE PO Last administered on 02/01/17 19:14; Start 02/01/17 at 19:15; Stop 02/01/17 at 19:16; Status DC Ceftriaxone Sodium (Rocephin Im) 1 gm 1X ONCE IM Last administered on 20:45; Start 02/01/17 at 20:30; Stop 02/01/17 at 20:31; Status DC Acetaminophen (Tylenol) 650 mg PRN Q6HRS PRN PO MILD PAIN / TEMP Last administered on 02/19/17 15:57; Start 02/01/17 at 23:15 Multi-Ingredient Ointment (Analgesic [employer]) 1 rosita PRN QID PRN TP MUSCLE PAIN; Start 02/01/17 at 23:15 Al Hydroxide/Mg Hydroxide (Mylanta Plus Xs) 15 ml PRN AFTMEALHC PRN PO DYSPEPSIA; Start 02/01/17 at 23:15 Magnesium Hydroxide (Milk Of Magnesia) 2,400 mg PRN QHS PRN PO CONSTIPATION Last administered on 02/13/17 02:05; Start 02/01/17 at 23:15 Olanzapine (ZyPREXA) 5 mg HS PO Last administered on 02/13/17 19:31; Start at 21:00; Stop 02/14/17 at 18:51; Status DC Quetiapine Fumarate (SEROquel) 25 mg BID PO Last administered on 02/08/17 08: 42; Start 02/02/17 at 09:00; Stop 02/08/17 at 19:16; Status DC Sertraline HCl (Zoloft) 100 mg DAILY PO Last administered on 02/06/17 08:01; Start 02/02/17 at 09:00; Stop 02/06/17 at 18:56; Status DC Olanzapine (ZyPREXA) 5 mg 1X ONCE PO Last administered on 02/02/17 00:27; Start 02/02/17 at 00:30; Stop 02/02/17 at 00:31; Status DC Alprazolam (Xanax) 0.5 mg BID PO Last administered on 02/13/17 11:42; Start at 09:00; Stop 02/13/17 at 18:35; Status DC Lorazepam (Ativan) 0.5 mg PRN Q4HRS PRN PO ANXIETY / AGITATION Last administered on 02/02/17 14:57; Start 02/02/17 at 00:15; Stop 02/02/17 at 15:59 ; Status DC Levothyroxine Sodium (Synthroid) 112 mcg DAILY06 PO Last administered on 05:44; Start 02/02/17 at 10:00 Naproxen (Naprosyn) 500 mg BID PO Last administered on 02/24/17 20:13; Start 02/02/17 at 09:00 Atorvastatin Calcium (Lipitor) 40 mg QHS PO Last administered on 02/24/17 20: 13; Start 02/02/17 at 21:00 Mirtazapine (Remeron) 7.5 mg QHS PO Last administered on 02/20/17 23:08; Start 02/02/17 at 21:00; Stop 02/21/17 at 19:38; Status DC Olanzapine (ZyPREXA ZYDIS) 2.5 mg PRN Q2HR PRN PO PSYCHOSIS Last administered on 02/24/17 20:14; Start 02/02/17 at 15:45 Alprazolam (Xanax) 0.25 mg PRN Q2HR PRN PO ANXIETY / AGITATION Last administered on 02/13/17 16:33; Start 02/02/17 at 15:45; Stop 02/13/17 at 18:35 ; Status DC Docusate Sodium (Colace) 100 mg BID PO Last administered on 02/24/17 20:13; Start 02/02/17 at 21:00 Polyethylene Glycol (miraLAX) 17 gm DAILY PO Last administered on 02/24/17 10: 14; Start 02/03/17 at 09:00 Vitamin D (Vitamin D3) 50,000 unit WEEKLY PO Last administered on 02/24/17 10: 12; Start 02/10/17 at 09:00 Divalproex Sodium (Depakote Sprinkles) 125 mg TID@0900,1300,1700 PO Last administered on 02/06/17 16:46; Start 02/04/17 at 09:00; Stop 02/06/17 at 18:56 ; Status DC Divalproex Sodium (Depakote Sprinkles) 250 mg TID@0900,1300,1700 PO Last administered on 02/09/17 09:13; Start 02/07/17 at 09:00; Stop 02/09/17 at 13:03 ; Status DC Fluvoxamine Maleate (Luvox) 50 mg HS PO Last administered on 02/13/17 19:32; Start 02/06/17 at 21:00; Stop 02/14/17 at 18:51; Status DC Quetiapine Fumarate (SEROquel) 25 mg TID PO Last administered on 02/09/17 09: 16; Start 02/09/17 at 09:00; Stop 02/09/17 at 13:30; Status DC Divalproex Sodium (Depakote Sprinkles) 375 mg TID@0900,1300,1700 PO Last administered on 02/16/17 08:01; Start 02/09/17 at 13:00; Stop 02/16/17 at 19:13 ; Status DC Quetiapine Fumarate (SEROquel) 37.5 mg TID PO Last administered on 02/12/17 12 :55; Start 02/09/17 at 14:00; Stop 02/12/17 at 17:56; Status DC Olanzapine (ZyPREXA) 5 mg 1X ONCE PO Last administered on 02/12/17 11:57; Start 02/12/17 at 12:00; Stop 02/12/17 at 12:01; Status DC Quetiapine Fumarate (SEROquel) 50 mg TID PO Last administered on 02/19/17 13: 43; Start 02/12/17 at 21:00; Stop 02/19/17 at 18:29; Status DC Lorazepam (Ativan) 0.5 mg PRN Q2HR PRN PO ANXIETY / AGITATION Last administered on 02/24/17 14:54; Start 02/13/17 at 18:45 Lorazepam (Ativan) 0.5 mg BID PO Last administered on 02/16/17 08:04; Start at 21:00; Stop 02/17/17 at 17:37; Status DC Fluvoxamine Maleate (Luvox) 75 mg HS PO Last administered on 02/15/17 19:11; Start 02/14/17 at 21:00; Stop 02/16/17 at 22:01; Status DC Trazodone HCl (Desyrel) 12.5 mg TID PO Last administered on 02/14/17 19:39; Start 02/14/17 at 19:00; Stop 02/14/17 at 21:12; Status DC Trazodone HCl (Desyrel) 12.5 mg TIDWMEALS PO Last administered on 02/19/17 07: 57; Start 02/15/17 at 08:00; Stop 02/19/17 at 09:00; Status DC Fluvoxamine Maleate (Luvox) 100 mg HS PO Last administered on 02/24/17 20:13; Start 02/16/17 at 21:00 Lorazepam (Ativan) 0.25 mg BID PO Last administered on 02/18/17 20:06; Start 02/17/17 at 21:00; Stop 02/18/17 at 22:00; Status DC Trazodone HCl (Desyrel) 12.5 mg QID PO Last administered on 02/24/17 20:12; Start 02/19/17 at 09:00 Risperidone (RisperDAL) 0.125 mg TID@0900,1300,1700 PO Last administered on 17:31; Start 02/20/17 at 09:00; Stop 02/20/17 at 22:50; Status DC Mirtazapine (Remeron) 15 mg QHS PO Last administered on 02/24/17 20:13; Start 02/21/17 at 21:00 Trazodone HCl (Desyrel) 50 mg PRN QHS PRN PO INSOMNIA, MAY REPEAT X1 Last administered on 02/23/17 00:34; Start 02/20/17 at 22:45; Stop 02/23/17 at 10:59 ; Status DC Risperidone (RisperDAL) 0.25 mg TID@0900,1300,1700 PO Last administered on 02/24 17:20; Start 02/21/17 at 09:00; Stop 02/24/17 at 19:06; Status DC Trazodone HCl (Desyrel) 100 mg PRN QHS PRN PO INSOMNIA, MAY REPEAT X1 Last administered on 02/23/17 21:35; Start 02/23/17 at 11:15 Risperidone (RisperDAL) 0.375 mg TID@0900,1300,1700 PO ; Start 02/25/17 at 09:00 Carbamazepine (TEGretol) 200 mg QHS PO Last administered on 02/24/17 20:14; Start 02/24/17 at 21:00 Active Scripts Active Reported Atorvastatin Calcium 40 Mg Tablet 40 Mg PO QHS Naproxen 500 Mg Tablet 500 Mg PO BID Lorazepam 0.5 Mg Tablet 0.5 Mg PO PRN Q4HRS PRN Seroquel (Quetiapine Fumarate) 25 Mg Tablet 25 Mg PO BID Zoloft (Sertraline Hcl) 100 Mg Tablet 100 Mg PO DAILY Levothyroxine Sodium 112 Mcg Tablet 112 Mcg PO DAILYAC Olanzapine 5 Mg Tablet 5 Mg PO HS Alprazolam 0.5 Mg Tablet 0.5 Mg PO BID Diagnosis: Problems: (1) Anxiety disorder (2) Bipolar 1 disorder, mixed, moderate (3) Dementia in Alzheimer's disease with delusions (4) Dementia in Alzheimer's disease with depression (5) Dementia, vascular, with depression (6) Dementia, vascular, with delusions (7) Impulse control disorder ELEANOR BILLS MD Feb 24, 2017 21:17
[2017-02-25] MEDS: LORazepam 0.5 MG TABLET PO PRN ×2 (00:39→16:27)
[2017-02-25] MEDS: LEVOTHYROXINE 112 MCG TABLET PO SCH (05:17)
[2017-02-25 06:34] VITALS: BP 103/62
[2017-02-25] MEDS: DOCUSATE SODIUM 100 MG CAPSULE PO SCH ×2 (08:06→19:33)
[2017-02-25] MEDS: traZODone 50 MG TABLET. PO SCH ×4 (08:07→19:33)
[2017-02-25] MEDS: NAPROXEN 500 MG TABLET PO SCH ×2 (08:07→19:33)
[2017-02-25] MEDS: POLYETHYLENE GLYCOL 3350 17 GM PACKET. PO SCH (08:07)
[2017-02-25] MEDS: risperiDONE 0.25 MG TABLET. PO SCH ×3 (08:08→16:27)
[2017-02-25 09:38] LABS: BASO # 0.1 x10^3/uL (0.0-0.2); BASO % 0 % (0-3); EOS # 0.4 x10^3/uL (0.0-0.7); EOS % 3 % (0-3); HEMATOCRIT 38.4 % (36.0-47.0); HEMOGLOBIN 12.6 g/dL (12.0-15.5); LYMPH # 1.5 x10^3/uL (1.0-4.8); LYMPH % 11 % (24-48); MEAN CORPUSCULAR HEMOGLOBIN 30 pg (25-35); MEAN CORPUSCULAR HGB CONC 33 g/dL (31-37); MEAN CORPUSCULAR VOLUME 91 fL (79-100); MONO % 8 % (0-9); NEUT % 78 % (31-73); PLATELET COUNT 430 x10^3/uL (140-400); RED BLOOD COUNT 4.22 x10^6/uL (3.50-5.40); RED CELL DISTRIBUTION WIDTH 15.5 % (11.5-14.5)
[2017-02-25 09:46] LABS: ALBUMIN 3.1 g/dL (3.4-5.0); CALCIUM 8.6 mg/dL (8.5-10.1); CREATININE 0.6 mg/dL (0.6-1.0); GFR 99.7; POTASSIUM 3.9 mmol/L (3.5-5.1); TOTAL BILIRUBIN 0.3 mg/dL (0.2-1.0); TOTAL PROTEIN 6.1 g/dL (6.4-8.2)
[2017-02-25 11:53] LABS: CLARITY,URINE CLOUDY; COLOR,URINE YELLOW
[2017-02-25 11:54] LABS: BACTERIA,URINE MANY /HPF (0-FEW); BILIRUBIN,URINE NEG (NEG); GLUCOSE,URINE NEG (NEG); NITRITE,URINE POS (NEG); SQUAMOUS EPITHELIAL CELL,UR FEW /LPF; UROBILINOGEN,URINE 0.2 mg/dL (0.2 mg/dL)
--- NOTE | 2017-02-25 13:38 | PDOC ---
PROGRESS NOTES Assessment 1. Cough: CXR now. Blood cultures x 2. Omnicef 300 mg BID pending results. 2. Leukocytosis: Urine cultures continue to show contaminants. Will check CXR. Pt has cough, see above. 3. Dementia w/ behaviors: Per Dr. Hernandez. 4. DVT proph: Lovenox to be started, pt does not ambulate, and w/ possible infection, will be higher risk for DVT. Problems: Plan of Care: see other orders Subjective I was asked to see pt due to leukocytosis and cough. Pt states she does have a cough. No fever, no n/v, no diarrhea. CXR on 02/17 showed LLL atelectasis vs infiltrate. Objective Vital Signs Date Time Temp Pulse Resp B/P (MAP) Pulse Ox O2 Delivery O2 Flow Rate FiO2 02/25/17 06:34 97.7 69 18 103/62 (76) 92 02/21/17 05:55 Room Air Intake and Output 02/26/17 06:59 Intake Total 720 ml Balance 720 ml Intake Oral 720 ml Abdomen: Soft, No tenderness Heart: Regular rate, Normal S1, Normal S2, No murmurs Extremities: No edema General: Alert, Cooperative, No acute distress HEENT: Mucous membr. moist/pink Lungs: Clear to auscultation Neck: No JVD, No LAD Skin: No rashes Review of Relevant I have reviewed the following items tita (where applicable) has been applied. Labs Laboratory Tests Test 02/25/17 09:15 02/25/17 11:20 White Blood Count 14.0 x10^3/uL (4.0-11.0) Red Blood Count 4.22 x10^6/uL (3.50-5.40) Hemoglobin 12.6 g/dL (12.0-15.5) Hematocrit 38.4 % (36.0-47.0) Mean Corpuscular Volume 91 fL (79-100) Mean Corpuscular Hemoglobin 30 pg (25-35) Mean Corpuscular Hemoglobin Concent 33 g/dL (31-37) Red Cell Distribution Width 15.5 % (11.5-14.5) Platelet Count 430 x10^3/uL (140-400) Neutrophils (%) (Auto) 78 % (31-73) Lymphocytes (%) (Auto) 11 % (24-48) Monocytes (%) (Auto) 8 % (0-9) Eosinophils (%) (Auto) 3 % (0-3) Basophils (%) (Auto) 0 % (0-3) Neutrophils # (Auto) 11.0 x10^3uL (1.8-7.7) Lymphocytes # (Auto) 1.5 x10^3/uL (1.0-4.8) Monocytes # (Auto) 1.0 x10^3/uL (0.0-1.1) Eosinophils # (Auto) 0.4 x10^3/uL (0.0-0.7) Basophils # (Auto) 0.1 x10^3/uL (0.0-0.2) Sodium Level 143 mmol/L (136-145) Potassium Level 3.9 mmol/L (3.5-5.1) Chloride Level 108 mmol/L (98-107) Carbon Dioxide Level 28 mmol/L (21-32) Anion Gap 7 (6-14) Blood Urea Nitrogen 19 mg/dL (7-20) Creatinine 0.6 mg/dL (0.6-1.0) Estimated GFR (Cockcroft-Gault) 99.7 BUN/Creatinine Ratio 32 (6-20) Glucose Level 92 mg/dL (70-99) Calcium Level 8.6 mg/dL (8.5-10.1) Total Bilirubin 0.3 mg/dL (0.2-1.0) Aspartate Amino Transf (AST/SGOT) 18 U/L (15-37) Alanine Aminotransferase (ALT/SGPT) 29 U/L (14-59) Alkaline Phosphatase 93 U/L (46-116) Total Protein 6.1 g/dL (6.4-8.2) Albumin 3.1 g/dL (3.4-5.0) Albumin/Globulin Ratio 1.0 (1.0-1.7) Urine Collection Type Unknown Urine Color Yellow Urine Clarity Cloudy Urine pH 6.5 Urine Specific [place] 1.015 Urine Protein Neg (NEG-TRACE) Urine Glucose (UA) Neg mg/dL (NEG) Urine Ketones (Stick) Neg mg/dL (NEG) Urine Blood Trace (NEG) Urine Nitrite Pos (NEG) Urine Bilirubin Neg (NEG) Urine Urobilinogen Dipstick 0.2 mg/dL (0.2 mg/dL) Urine Leukocyte Esterase Small (NEG) Urine RBC 1-2 /HPF (0-2) Urine WBC 11-20 /HPF (0-4) Urine Squamous Epithelial Cells Few /LPF Urine Bacteria Many /HPF (0-FEW) Microbiology 02/17/17 Urine Culture - Final, Complete 02/17/17 Urine Culture Result 1 (LINDSAY) - Final, Complete Medications Current Medications Lorazepam (Ativan) 0.5 mg 1X ONCE PO Last administered on 02/01/17 19:14; Start 02/01/17 at 19:15; Stop 02/01/17 at 19:16; Status DC Ceftriaxone Sodium (Rocephin Im) 1 gm 1X ONCE IM Last administered on 20:45; Start 02/01/17 at 20:30; Stop 02/01/17 at 20:31; Status DC Acetaminophen (Tylenol) 650 mg PRN Q6HRS PRN PO MILD PAIN / TEMP Last administered on 02/19/17 15:57; Start 02/01/17 at 23:15 Multi-Ingredient Ointment (Analgesic [employer]) 1 rosita PRN QID PRN TP MUSCLE PAIN; Start 02/01/17 at 23:15 Al Hydroxide/Mg Hydroxide (Mylanta Plus Xs) 15 ml PRN AFTMEALHC PRN PO DYSPEPSIA; Start 02/01/17 at 23:15 Magnesium Hydroxide (Milk Of Magnesia) 2,400 mg PRN QHS PRN PO CONSTIPATION Last administered on 02/13/17 02:05; Start 02/01/17 at 23:15 Olanzapine (ZyPREXA) 5 mg HS PO Last administered on 02/13/17 19:31; Start at 21:00; Stop 02/14/17 at 18:51; Status DC Quetiapine Fumarate (SEROquel) 25 mg BID PO Last administered on 02/08/17 08: 42; Start 02/02/17 at 09:00; Stop 02/08/17 at 19:16; Status DC Sertraline HCl (Zoloft) 100 mg DAILY PO Last administered on 02/06/17 08:01; Start 02/02/17 at 09:00; Stop 02/06/17 at 18:56; Status DC Olanzapine (ZyPREXA) 5 mg 1X ONCE PO Last administered on 02/02/17 00:27; Start 02/02/17 at 00:30; Stop 02/02/17 at 00:31; Status DC Alprazolam (Xanax) 0.5 mg BID PO Last administered on 02/13/17 11:42; Start at 09:00; Stop 02/13/17 at 18:35; Status DC Lorazepam (Ativan) 0.5 mg PRN Q4HRS PRN PO ANXIETY / AGITATION Last administered on 02/02/17 14:57; Start 02/02/17 at 00:15; Stop 02/02/17 at 15:59 ; Status DC Levothyroxine Sodium (Synthroid) 112 mcg DAILY06 PO Last administered on 05:17; Start 02/02/17 at 10:00 Naproxen (Naprosyn) 500 mg BID PO Last administered on 02/25/17 08:07; Start 02/02/17 at 09:00 Atorvastatin Calcium (Lipitor) 40 mg QHS PO Last administered on 02/24/17 20: 13; Start 02/02/17 at 21:00 Mirtazapine (Remeron) 7.5 mg QHS PO Last administered on 02/20/17 23:08; Start 02/02/17 at 21:00; Stop 02/21/17 at 19:38; Status DC Olanzapine (ZyPREXA ZYDIS) 2.5 mg PRN Q2HR PRN PO PSYCHOSIS Last administered on 02/24/17 20:14; Start 02/02/17 at 15:45 Alprazolam (Xanax) 0.25 mg PRN Q2HR PRN PO ANXIETY / AGITATION Last administered on 02/13/17 16:33; Start 02/02/17 at 15:45; Stop 02/13/17 at 18:35 ; Status DC Docusate Sodium (Colace) 100 mg BID PO Last administered on 02/25/17 08:06; Start 02/02/17 at 21:00 Polyethylene Glycol (miraLAX) 17 gm DAILY PO Last administered on 02/25/17 08: 07; Start 02/03/17 at 09:00 Vitamin D (Vitamin D3) 50,000 unit WEEKLY PO Last administered on 02/24/17 10: 12; Start 02/10/17 at 09:00 Divalproex Sodium (Depakote Sprinkles) 125 mg TID@0900,1300,1700 PO Last administered on 02/06/17 16:46; Start 02/04/17 at 09:00; Stop 02/06/17 at 18:56 ; Status DC Divalproex Sodium (Depakote Sprinkles) 250 mg TID@0900,1300,1700 PO Last administered on 02/09/17 09:13; Start 02/07/17 at 09:00; Stop 02/09/17 at 13:03 ; Status DC Fluvoxamine Maleate (Luvox) 50 mg HS PO Last administered on 02/13/17 19:32; Start 02/06/17 at 21:00; Stop 02/14/17 at 18:51; Status DC Quetiapine Fumarate (SEROquel) 25 mg TID PO Last administered on 02/09/17 09: 16; Start 02/09/17 at 09:00; Stop 02/09/17 at 13:30; Status DC Divalproex Sodium (Depakote Sprinkles) 375 mg TID@0900,1300,1700 PO Last administered on 02/16/17 08:01; Start 02/09/17 at 13:00; Stop 02/16/17 at 19:13 ; Status DC Quetiapine Fumarate (SEROquel) 37.5 mg TID PO Last administered on 02/12/17 12 :55; Start 02/09/17 at 14:00; Stop 02/12/17 at 17:56; Status DC Olanzapine (ZyPREXA) 5 mg 1X ONCE PO Last administered on 02/12/17 11:57; Start 02/12/17 at 12:00; Stop 02/12/17 at 12:01; Status DC Quetiapine Fumarate (SEROquel) 50 mg TID PO Last administered on 02/19/17 13: 43; Start 02/12/17 at 21:00; Stop 02/19/17 at 18:29; Status DC Lorazepam (Ativan) 0.5 mg PRN Q2HR PRN PO ANXIETY / AGITATION Last administered on 02/25/17 00:39; Start 02/13/17 at 18:45 Lorazepam (Ativan) 0.5 mg BID PO Last administered on 02/16/17 08:04; Start at 21:00; Stop 02/17/17 at 17:37; Status DC Fluvoxamine Maleate (Luvox) 75 mg HS PO Last administered on 02/15/17 19:11; Start 02/14/17 at 21:00; Stop 02/16/17 at 22:01; Status DC Trazodone HCl (Desyrel) 12.5 mg TID PO Last administered on 02/14/17 19:39; Start 02/14/17 at 19:00; Stop 02/14/17 at 21:12; Status DC Trazodone HCl (Desyrel) 12.5 mg TIDWMEALS PO Last administered on 02/19/17 07: 57; Start 02/15/17 at 08:00; Stop 02/19/17 at 09:00; Status DC Fluvoxamine Maleate (Luvox) 100 mg HS PO Last administered on 02/24/17 20:13; Start 02/16/17 at 21:00 Lorazepam (Ativan) 0.25 mg BID PO Last administered on 02/18/17 20:06; Start 02/17/17 at 21:00; Stop 02/18/17 at 22:00; Status DC Trazodone HCl (Desyrel) 12.5 mg QID PO Last administered on 02/25/17 08:07; Start 02/19/17 at 09:00 Risperidone (RisperDAL) 0.125 mg TID@0900,1300,1700 PO Last administered on 17:31; Start 02/20/17 at 09:00; Stop 02/20/17 at 22:50; Status DC Mirtazapine (Remeron) 15 mg QHS PO Last administered on 02/24/17 20:13; Start 02/21/17 at 21:00 Trazodone HCl (Desyrel) 50 mg PRN QHS PRN PO INSOMNIA, MAY REPEAT X1 Last administered on 02/23/17 00:34; Start 02/20/17 at 22:45; Stop 02/23/17 at 10:59 ; Status DC Risperidone (RisperDAL) 0.25 mg TID@0900,1300,1700 PO Last administered on 02/24 17:20; Start 02/21/17 at 09:00; Stop 02/24/17 at 19:06; Status DC Trazodone HCl (Desyrel) 100 mg PRN QHS PRN PO INSOMNIA, MAY REPEAT X1 Last administered on 02/23/17 21:35; Start 02/23/17 at 11:15 Risperidone (RisperDAL) 0.375 mg TID@0900,1300,1700 PO Last administered on 08:08; Start 02/25/17 at 09:00 Carbamazepine (TEGretol) 200 mg QHS PO Last administered on 02/24/17 20:14; Start 02/24/17 at 21:00 Active Scripts Active Reported Atorvastatin Calcium 40 Mg Tablet 40 Mg PO QHS Naproxen 500 Mg Tablet 500 Mg PO BID Lorazepam 0.5 Mg Tablet 0.5 Mg PO PRN Q4HRS PRN Seroquel (Quetiapine Fumarate) 25 Mg Tablet 25 Mg PO BID Zoloft (Sertraline Hcl) 100 Mg Tablet 100 Mg PO DAILY Levothyroxine Sodium 112 Mcg Tablet 112 Mcg PO DAILYAC Olanzapine 5 Mg Tablet 5 Mg PO HS Alprazolam 0.5 Mg Tablet 0.5 Mg PO BID Vitals/I & O Vital Sign - Last 24 Hours 02/24/17 02/25/17 15:54 06:34 Temp 97.8 97.7 Pulse 80 69 Resp 20 18 B/P (MAP) 106/58 (74) 103/62 (76) Pulse Ox 92 92 Intake and Output 02/25/17 02/25/17 02/26/17 14:59 22:59 06:59 Intake Total 720 ml Balance 720 ml ASHELY MASON MD Feb 25, 2017 13:38
[2017-02-25] MEDS: ENOXAPARIN 40 MG/0.4 ML DISP.SYRIN. SQ SCH (16:01)
[2017-02-25 16:17] VITALS: BP 108/62
--- NOTE | 2017-02-25 17:45 | PN ---
DATE: 02/24/2017 PSYCHIATRIC PROGRESS NOTE This is a late entry 02/24/2017, covers elements not covered in my initial note of 02/24/2017. SUBJECTIVE: The patient had a very difficult day on 02/24/2017. She has been yelling loud, repetitive, extremely psychotic, fearful, believes people are trying to kill her. She slept hours previous evening, slept in the morning of 02/24/2017. Received Ativan in the evening, Zyprexa p.r.n. in the morning. She has had to be in the to remove her from the stimuli and the rest of the unit. REVIEW OF SYSTEMS: Ambulation impaired. No CV, , pulmonary, eye, ENT system symptoms on review. MENTAL STATUS EXAM: Oriented to herself. Insight, judgment, recent and remote memory, attention, concentration, fund of knowledge poor, consistent with her diagnoses as mentioned in my initial note. PLAN: Increase Risperdal from 0.25 mg 3 times a day to 0.375 mg 3 times a day. Maintain the rest of the psychotropics. Review drug contractions. Risk/benefit ratio favors no further change. ELEANOR BILLS MD DR: JAIME/meli JOB#: [id number] / [id number]
[2017-02-25] MEDS: ATORVASTATIN CALCIUM 20 MG TABLET PO SCH (19:32)
[2017-02-25] MEDS: carBAMazepine 200 MG TABLET PO SCH (19:33)
[2017-02-25] MEDS: MIRTAZAPINE 15 MG TABLET PO SCH (19:33)
[2017-02-25] MEDS: CEFPODOXIME PROXETIL 100 MG TABLET PO SCH (20:06)
--- NOTE | 2017-02-25 23:00 | PDOC ---
Exam Jeanmarie Demential Exam: Jeanmarie Note: Please also refer to the separate dictated note~for this date of service dictated separately.~Patient seen individually. Discussed the patient with Nursing staff reviewed the chart.~Reviewed interim history and current functioning. Reviewed vital signs,~Labs/ Radiology~and current medications noted below. Continue current treatment with the changes noted in the dictated addendum note Assessment: Vital Signs: Vital Signs Date Time Temp Pulse Resp B/P (MAP) Pulse Ox O2 Delivery O2 Flow Rate FiO2 02/25/17 16:17 97.5 81 16 108/62 (77) 92 02/21/17 05:55 Room Air I&O Intake and Output 02/26/17 07:00 Intake Total 1080 ml Balance 1080 ml Intake Oral 1080 ml # Voids 1 # Bowel Movements 1 Labs: Laboratory Tests Test 02/25/17 09:15 02/25/17 11:20 White Blood Count 14.0 x10^3/uL (4.0-11.0) H Red Blood Count 4.22 x10^6/uL (3.50-5.40) Hemoglobin 12.6 g/dL (12.0-15.5) Hematocrit 38.4 % (36.0-47.0) Mean Corpuscular Volume 91 fL (79-100) Mean Corpuscular Hemoglobin 30 pg (25-35) Mean Corpuscular Hemoglobin Concent 33 g/dL (31-37) Red Cell Distribution Width 15.5 % (11.5-14.5) H Platelet Count 430 x10^3/uL (140-400) #H Neutrophils (%) (Auto) 78 % (31-73) H Lymphocytes (%) (Auto) 11 % (24-48) L Monocytes (%) (Auto) 8 % (0-9) Eosinophils (%) (Auto) 3 % (0-3) Basophils (%) (Auto) 0 % (0-3) Neutrophils # (Auto) 11.0 x10^3uL (1.8-7.7) H Lymphocytes # (Auto) 1.5 x10^3/uL (1.0-4.8) Monocytes # (Auto) 1.0 x10^3/uL (0.0-1.1) Eosinophils # (Auto) 0.4 x10^3/uL (0.0-0.7) Basophils # (Auto) 0.1 x10^3/uL (0.0-0.2) Sodium Level 143 mmol/L (136-145) Potassium Level 3.9 mmol/L (3.5-5.1) Chloride Level 108 mmol/L (98-107) H Carbon Dioxide Level 28 mmol/L (21-32) Anion Gap 7 (6-14) Blood Urea Nitrogen 19 mg/dL (7-20) Creatinine 0.6 mg/dL (0.6-1.0) Estimated GFR (Cockcroft-Gault) 99.7 BUN/Creatinine Ratio 32 (6-20) H Glucose Level 92 mg/dL (70-99) Calcium Level 8.6 mg/dL (8.5-10.1) Total Bilirubin 0.3 mg/dL (0.2-1.0) Aspartate Amino Transferase (AST) 18 U/L (15-37) Alanine Aminotransferase (ALT) 29 U/L (14-59) Alkaline Phosphatase 93 U/L (46-116) Total Protein 6.1 g/dL (6.4-8.2) L Albumin 3.1 g/dL (3.4-5.0) L Albumin/Globulin Ratio 1.0 (1.0-1.7) Urine Collection Type Unknown Urine Color Yellow Urine Clarity Cloudy Urine pH 6.5 Urine Specific [place] 1.015 Urine Protein Neg (NEG-TRACE) Urine Glucose (UA) Neg mg/dL (NEG) Urine Ketones (Stick) Neg mg/dL (NEG) Urine Blood Trace (NEG) Urine Nitrite Pos (NEG) Urine Bilirubin Neg (NEG) Urine Urobilinogen Dipstick 0.2 mg/dL (0.2 mg/dL) Urine Leukocyte Esterase Small (NEG) Urine RBC 1-2 /HPF (0-2) Urine WBC 11-20 /HPF (0-4) Urine Squamous Epithelial Cells Few /LPF Urine Bacteria Many /HPF (0-FEW) Current Medications: Meds: Current Medications Lorazepam (Ativan) 0.5 mg 1X ONCE PO Last administered on 02/01/17 19:14; Start 02/01/17 at 19:15; Stop 02/01/17 at 19:16; Status DC Ceftriaxone Sodium (Rocephin Im) 1 gm 1X ONCE IM Last administered on 20:45; Start 02/01/17 at 20:30; Stop 02/01/17 at 20:31; Status DC Acetaminophen (Tylenol) 650 mg PRN Q6HRS PRN PO MILD PAIN / TEMP Last administered on 02/19/17 15:57; Start 02/01/17 at 23:15 Multi-Ingredient Ointment (Analgesic [place]) 1 rosita PRN QID PRN TP MUSCLE PAIN; Start 02/01/17 at 23:15 Al Hydroxide/Mg Hydroxide (Mylanta Plus Xs) 15 ml PRN AFTMEALHC PRN PO DYSPEPSIA; Start 02/01/17 at 23:15 Magnesium Hydroxide (Milk Of Magnesia) 2,400 mg PRN QHS PRN PO CONSTIPATION Last administered on 02/13/17 02:05; Start 02/01/17 at 23:15 Olanzapine (ZyPREXA) 5 mg HS PO Last administered on 02/13/17 19:31; Start at 21:00; Stop 02/14/17 at 18:51; Status DC Quetiapine Fumarate (SEROquel) 25 mg BID PO Last administered on 02/08/17 08: 42; Start 02/02/17 at 09:00; Stop 02/08/17 at 19:16; Status DC Sertraline HCl (Zoloft) 100 mg DAILY PO Last administered on 02/06/17 08:01; Start 02/02/17 at 09:00; Stop 02/06/17 at 18:56; Status DC Olanzapine (ZyPREXA) 5 mg 1X ONCE PO Last administered on 02/02/17 00:27; Start 02/02/17 at 00:30; Stop 02/02/17 at 00:31; Status DC Alprazolam (Xanax) 0.5 mg BID PO Last administered on 02/13/17 11:42; Start at 09:00; Stop 02/13/17 at 18:35; Status DC Lorazepam (Ativan) 0.5 mg PRN Q4HRS PRN PO ANXIETY / AGITATION Last administered on 02/02/17 14:57; Start 02/02/17 at 00:15; Stop 02/02/17 at 15:59 ; Status DC Levothyroxine Sodium (Synthroid) 112 mcg DAILY06 PO Last administered on 05:17; Start 02/02/17 at 10:00 Naproxen (Naprosyn) 500 mg BID PO Last administered on 02/25/17 19:33; Start 02/02/17 at 09:00 Atorvastatin Calcium (Lipitor) 40 mg QHS PO Last administered on 02/25/17 19: 32; Start 02/02/17 at 21:00 Mirtazapine (Remeron) 7.5 mg QHS PO Last administered on 02/20/17 23:08; Start 02/02/17 at 21:00; Stop 02/21/17 at 19:38; Status DC Olanzapine (ZyPREXA ZYDIS) 2.5 mg PRN Q2HR PRN PO PSYCHOSIS Last administered on 02/24/17 20:14; Start 02/02/17 at 15:45 Alprazolam (Xanax) 0.25 mg PRN Q2HR PRN PO ANXIETY / AGITATION Last administered on 02/13/17 16:33; Start 02/02/17 at 15:45; Stop 02/13/17 at 18:35 ; Status DC Docusate Sodium (Colace) 100 mg BID PO Last administered on 02/25/17 19:33; Start 02/02/17 at 21:00 Polyethylene Glycol (miraLAX) 17 gm DAILY PO Last administered on 02/25/17 08: 07; Start 02/03/17 at 09:00 Vitamin D (Vitamin D3) 50,000 unit WEEKLY PO Last administered on 02/24/17 10: 12; Start 02/10/17 at 09:00 Divalproex Sodium (Depakote Sprinkles) 125 mg TID@0900,1300,1700 PO Last administered on 02/06/17 16:46; Start 02/04/17 at 09:00; Stop 02/06/17 at 18:56 ; Status DC Divalproex Sodium (Depakote Sprinkles) 250 mg TID@0900,1300,1700 PO Last administered on 02/09/17 09:13; Start 02/07/17 at 09:00; Stop 02/09/17 at 13:03 ; Status DC Fluvoxamine Maleate (Luvox) 50 mg HS PO Last administered on 02/13/17 19:32; Start 02/06/17 at 21:00; Stop 02/14/17 at 18:51; Status DC Quetiapine Fumarate (SEROquel) 25 mg TID PO Last administered on 02/09/17 09: 16; Start 02/09/17 at 09:00; Stop 02/09/17 at 13:30; Status DC Divalproex Sodium (Depakote Sprinkles) 375 mg TID@0900,1300,1700 PO Last administered on 02/16/17 08:01; Start 02/09/17 at 13:00; Stop 02/16/17 at 19:13 ; Status DC Quetiapine Fumarate (SEROquel) 37.5 mg TID PO Last administered on 02/12/17 12 :55; Start 02/09/17 at 14:00; Stop 02/12/17 at 17:56; Status DC Olanzapine (ZyPREXA) 5 mg 1X ONCE PO Last administered on 02/12/17 11:57; Start 02/12/17 at 12:00; Stop 02/12/17 at 12:01; Status DC Quetiapine Fumarate (SEROquel) 50 mg TID PO Last administered on 02/19/17 13: 43; Start 02/12/17 at 21:00; Stop 02/19/17 at 18:29; Status DC Lorazepam (Ativan) 0.5 mg PRN Q2HR PRN PO ANXIETY / AGITATION Last administered on 02/25/17 16:27; Start 02/13/17 at 18:45 Lorazepam (Ativan) 0.5 mg BID PO Last administered on 02/16/17 08:04; Start at 21:00; Stop 02/17/17 at 17:37; Status DC Fluvoxamine Maleate (Luvox) 75 mg HS PO Last administered on 02/15/17 19:11; Start 02/14/17 at 21:00; Stop 02/16/17 at 22:01; Status DC Trazodone HCl (Desyrel) 12.5 mg TID PO Last administered on 02/14/17 19:39; Start 02/14/17 at 19:00; Stop 02/14/17 at 21:12; Status DC Trazodone HCl (Desyrel) 12.5 mg TIDWMEALS PO Last administered on 02/19/17 07: 57; Start 02/15/17 at 08:00; Stop 02/19/17 at 09:00; Status DC Fluvoxamine Maleate (Luvox) 100 mg HS PO Last administered on 02/25/17 19:32; Start 02/16/17 at 21:00 Lorazepam (Ativan) 0.25 mg BID PO Last administered on 02/18/17 20:06; Start 02/17/17 at 21:00; Stop 02/18/17 at 22:00; Status DC Trazodone HCl (Desyrel) 12.5 mg QID PO Last administered on 02/25/17 19:33; Start 02/19/17 at 09:00 Risperidone (RisperDAL) 0.125 mg TID@0900,1300,1700 PO Last administered on 17:31; Start 02/20/17 at 09:00; Stop 02/20/17 at 22:50; Status DC Mirtazapine (Remeron) 15 mg QHS PO Last administered on 02/25/17 19:33; Start 02/21/17 at 21:00 Trazodone HCl (Desyrel) 50 mg PRN QHS PRN PO INSOMNIA, MAY REPEAT X1 Last administered on 02/23/17 00:34; Start 02/20/17 at 22:45; Stop 02/23/17 at 10:59 ; Status DC Risperidone (RisperDAL) 0.25 mg TID@0900,1300,1700 PO Last administered on 02/24 17:20; Start 02/21/17 at 09:00; Stop 02/24/17 at 19:06; Status DC Trazodone HCl (Desyrel) 100 mg PRN QHS PRN PO INSOMNIA, MAY REPEAT X1 Last administered on 02/23/17 21:35; Start 02/23/17 at 11:15 Risperidone (RisperDAL) 0.375 mg TID@0900,1300,1700 PO Last administered on 16:27; Start 02/25/17 at 09:00 Carbamazepine (TEGretol) 200 mg QHS PO Last administered on 02/25/17 19:33; Start 02/24/17 at 21:00 Enoxaparin Sodium (Lovenox) 40 mg Q24H SQ Last administered on 02/25/17 16:01 ; Start 02/25/17 at 14:00 Cefpodoxime Proxetil (Vantin) 100 mg BID PO Last administered on 02/25/17 20: 06; Start 02/25/17 at 21:00 Active Scripts Active Reported Atorvastatin Calcium 40 Mg Tablet 40 Mg PO QHS Naproxen 500 Mg Tablet 500 Mg PO BID Lorazepam 0.5 Mg Tablet 0.5 Mg PO PRN Q4HRS PRN Seroquel (Quetiapine Fumarate) 25 Mg Tablet 25 Mg PO BID Zoloft (Sertraline Hcl) 100 Mg Tablet 100 Mg PO DAILY Levothyroxine Sodium 112 Mcg Tablet 112 Mcg PO DAILYAC Olanzapine 5 Mg Tablet 5 Mg PO HS Alprazolam 0.5 Mg Tablet 0.5 Mg PO BID Diagnosis: Problems: (1) Anxiety disorder (2) Bipolar 1 disorder, mixed, moderate (3) Dementia in Alzheimer's disease with delusions (4) Dementia in Alzheimer's disease with depression (5) Dementia, vascular, with depression (6) Dementia, vascular, with delusions (7) Impulse control disorder ELEANOR BILLS MD Feb 25, 2017 23:00
[2017-02-25] MEDS: traZODone 100 MG TABLET. PO PRN (23:46)
[2017-02-26] MEDS: LEVOTHYROXINE 112 MCG TABLET PO SCH (05:44)
[2017-02-26 05:59] VITALS: BP 142/88
--- NOTE | 2017-02-26 07:53 | RAD ---
Portable chest, 02/25/2017: History: Cough Comparison is made to a study from 02/16/2017. Heart size and pulmonary vascularity are normal. Left basilar atelectasis/infiltrate has partially cleared with only minimal residual streaky opacities. The right chest remains clear. No new pulmonary infiltrate is seen. There is no evidence of pleural fluid. IMPRESSION: 1. Resolving mild left basilar atelectasis and/or pneumonitis. 2. No new abnormality is detected.
[2017-02-26] MEDS: DOCUSATE SODIUM 100 MG CAPSULE PO SCH ×2 (08:02→19:27)
[2017-02-26] MEDS: CEFPODOXIME PROXETIL 100 MG TABLET PO SCH ×2 (08:03→19:28)
[2017-02-26] MEDS: traZODone 50 MG TABLET. PO SCH ×4 (08:03→19:28)
[2017-02-26] MEDS: risperiDONE 0.25 MG TABLET. PO SCH ×3 (08:03→16:26)
[2017-02-26] MEDS: POLYETHYLENE GLYCOL 3350 17 GM PACKET. PO SCH (08:03)
[2017-02-26] MEDS: NAPROXEN 500 MG TABLET PO SCH ×2 (08:03→19:28)
[2017-02-26] MEDS: ENOXAPARIN 40 MG/0.4 ML DISP.SYRIN. SQ SCH (08:04)
--- NOTE | 2017-02-26 08:14 | PN ---
DATE: 02/23/2017 This late entry 02/23/2017 covers elements not covered in my initial note of 02/23/2017. SUBJECTIVE: The patient was staffed at a treatment team meeting with the entire team morning of 02/23/2017. The patient's daughter, Silvina, attended as well. Reviewed the patient's history, diagnosis, lab studies including hydrocephalus on CT head. Silvina mentioned family would like for the patient to have a consultation where the interventions would be recommended for the hydrocephalus. She has had a Neurology consult and I have suggested that if the family wants to pursue neurosurgical consult, they should feel free to do so, but the patient is quite demented. Valid concerns from the daughter and family, however, also are that there has been a rapid decline over the past couple of months and with that in mind, perhaps the neurosurgical consult is understandable for what they decide from there would be part of that neurosurgical discussion if they go ahead with that. The patient is having some ongoing insomnia and we will increase the trazodone to 100 mg at bedtime p.r.n., may repeat x 1 for this and she is already on Remeron 15 mg at bedtime. REVIEW OF SYSTEMS: Ambulation impaired, in a Broda chair. No CV, , pulmonary, eye, ENT system symptoms on review. Reliability poor. MENTAL STATUS EXAM: Oriented to herself. Insight, judgment, recent and remote memory, attention, concentration, fund of knowledge poor, consistent with her diagnosis. LABORATORIES: Reviewed. IMPRESSION: Unchanged from initial note. PLAN: Continue psychotropics as mentioned in my initial note other than changes mentioned above. Lengthy discussion with the daughter about all of this. Reviewed drug interactions at length including risk/benefit ratio, favors no further change at this time. MAN Aden BILLS MD DR: JAIME/meli JOB#: [id number] / [id number]
[2017-02-26 09:42] LABS: BASO # 0.1 x10^3/uL (0.0-0.2); BASO % 1 % (0-3); EOS # 0.6 x10^3/uL (0.0-0.7); EOS % 5 % (0-3); HEMATOCRIT 37.4 % (36.0-47.0); HEMOGLOBIN 12.5 g/dL (12.0-15.5); LYMPH # 1.5 x10^3/uL (1.0-4.8); LYMPH % 12 % (24-48); MEAN CORPUSCULAR HEMOGLOBIN 31 pg (25-35); MEAN CORPUSCULAR HGB CONC 34 g/dL (31-37); MEAN CORPUSCULAR VOLUME 91 fL (79-100); MONO # 1.1 x10^3/uL (0.0-1.1); MONO % 8 % (0-9); NEUT # 9.9 x10^3uL (1.8-7.7); NEUT % 75 % (31-73); PLATELET COUNT 442 x10^3/uL (140-400); RED BLOOD COUNT 4.11 x10^6/uL (3.50-5.40); RED CELL DISTRIBUTION WIDTH 15.1 % (11.5-14.5); WHITE BLOOD COUNT 13.1 x10^3/uL (4.0-11.0)
[2017-02-26] MEDS: LORazepam 0.5 MG TABLET PO PRN ×2 (10:18→17:29)
[2017-02-26 15:52] VITALS: BP 134/66
[2017-02-26] MEDS: ACETAMINOPHEN 325 MG TABLET PO PRN (16:26)
[2017-02-26] MEDS: carBAMazepine 200 MG TABLET PO SCH (19:28)
[2017-02-26] MEDS: ATORVASTATIN CALCIUM 20 MG TABLET PO SCH (19:28)
[2017-02-26] MEDS: MIRTAZAPINE 15 MG TABLET PO SCH (19:29)
--- NOTE | 2017-02-26 20:44 | PDOC ---
Exam Jeanmarie Demential Exam: Jeanmarie Note: Please also refer to the separate dictated note~for this date of service dictated separately.~Patient seen individually. Discussed the patient with Nursing staff reviewed the chart.~Reviewed interim history and current functioning. Reviewed vital signs,~Labs/ Radiology~and current medications noted below. Continue current treatment with the changes noted in the dictated addendum note Assessment: Vital Signs: Vital Signs Date Time Temp Pulse Resp B/P (MAP) Pulse Ox O2 Delivery O2 Flow Rate FiO2 02/26/17 15:52 98.4 85 20 134/66 (88) 93 02/21/17 05:55 Room Air I&O Intake and Output 02/27/17 07:00 Intake Total 820 ml Balance 820 ml Intake Oral 820 ml Labs: Laboratory Tests Test 02/26/17 09:21 White Blood Count 13.1 x10^3/uL (4.0-11.0) H Red Blood Count 4.11 x10^6/uL (3.50-5.40) Hemoglobin 12.5 g/dL (12.0-15.5) Hematocrit 37.4 % (36.0-47.0) Mean Corpuscular Volume 91 fL (79-100) Mean Corpuscular Hemoglobin 31 pg (25-35) Mean Corpuscular Hemoglobin Concent 34 g/dL (31-37) Red Cell Distribution Width 15.1 % (11.5-14.5) H Platelet Count 442 x10^3/uL (140-400) H Neutrophils (%) (Auto) 75 % (31-73) H Lymphocytes (%) (Auto) 12 % (24-48) L Monocytes (%) (Auto) 8 % (0-9) Eosinophils (%) (Auto) 5 % (0-3) H Basophils (%) (Auto) 1 % (0-3) Neutrophils # (Auto) 9.9 x10^3uL (1.8-7.7) H Lymphocytes # (Auto) 1.5 x10^3/uL (1.0-4.8) Monocytes # (Auto) 1.1 x10^3/uL (0.0-1.1) Eosinophils # (Auto) 0.6 x10^3/uL (0.0-0.7) Basophils # (Auto) 0.1 x10^3/uL (0.0-0.2) Current Medications: Meds: Current Medications Lorazepam (Ativan) 0.5 mg 1X ONCE PO Last administered on 02/01/17 19:14; Start 02/01/17 at 19:15; Stop 02/01/17 at 19:16; Status DC Ceftriaxone Sodium (Rocephin Im) 1 gm 1X ONCE IM Last administered on 20:45; Start 02/01/17 at 20:30; Stop 02/01/17 at 20:31; Status DC Acetaminophen (Tylenol) 650 mg PRN Q6HRS PRN PO MILD PAIN / TEMP Last administered on 02/26/17 16:26; Start 02/01/17 at 23:15 Multi-Ingredient Ointment (Analgesic [place]) 1 rosita PRN QID PRN TP MUSCLE PAIN; Start 02/01/17 at 23:15 Al Hydroxide/Mg Hydroxide (Mylanta Plus Xs) 15 ml PRN AFTMEALHC PRN PO DYSPEPSIA; Start 02/01/17 at 23:15 Magnesium Hydroxide (Milk Of Magnesia) 2,400 mg PRN QHS PRN PO CONSTIPATION Last administered on 02/13/17 02:05; Start 02/01/17 at 23:15 Olanzapine (ZyPREXA) 5 mg HS PO Last administered on 02/13/17 19:31; Start at 21:00; Stop 02/14/17 at 18:51; Status DC Quetiapine Fumarate (SEROquel) 25 mg BID PO Last administered on 02/08/17 08: 42; Start 02/02/17 at 09:00; Stop 02/08/17 at 19:16; Status DC Sertraline HCl (Zoloft) 100 mg DAILY PO Last administered on 02/06/17 08:01; Start 02/02/17 at 09:00; Stop 02/06/17 at 18:56; Status DC Olanzapine (ZyPREXA) 5 mg 1X ONCE PO Last administered on 02/02/17 00:27; Start 02/02/17 at 00:30; Stop 02/02/17 at 00:31; Status DC Alprazolam (Xanax) 0.5 mg BID PO Last administered on 02/13/17 11:42; Start at 09:00; Stop 02/13/17 at 18:35; Status DC Lorazepam (Ativan) 0.5 mg PRN Q4HRS PRN PO ANXIETY / AGITATION Last administered on 02/02/17 14:57; Start 02/02/17 at 00:15; Stop 02/02/17 at 15:59 ; Status DC Levothyroxine Sodium (Synthroid) 112 mcg DAILY06 PO Last administered on 05:44; Start 02/02/17 at 10:00 Naproxen (Naprosyn) 500 mg BID PO Last administered on 02/26/17 19:28; Start 02/02/17 at 09:00 Atorvastatin Calcium (Lipitor) 40 mg QHS PO Last administered on 02/26/17 19: 28; Start 02/02/17 at 21:00 Mirtazapine (Remeron) 7.5 mg QHS PO Last administered on 02/20/17 23:08; Start 02/02/17 at 21:00; Stop 02/21/17 at 19:38; Status DC Olanzapine (ZyPREXA ZYDIS) 2.5 mg PRN Q2HR PRN PO PSYCHOSIS Last administered on 02/26/17 17:58; Start 02/02/17 at 15:45 Alprazolam (Xanax) 0.25 mg PRN Q2HR PRN PO ANXIETY / AGITATION Last administered on 02/13/17 16:33; Start 02/02/17 at 15:45; Stop 02/13/17 at 18:35 ; Status DC Docusate Sodium (Colace) 100 mg BID PO Last administered on 02/26/17 19:27; Start 02/02/17 at 21:00 Polyethylene Glycol (miraLAX) 17 gm DAILY PO Last administered on 02/26/17 08: 03; Start 02/03/17 at 09:00 Vitamin D (Vitamin D3) 50,000 unit WEEKLY PO Last administered on 02/24/17 10: 12; Start 02/10/17 at 09:00 Divalproex Sodium (Depakote Sprinkles) 125 mg TID@0900,1300,1700 PO Last administered on 02/06/17 16:46; Start 02/04/17 at 09:00; Stop 02/06/17 at 18:56 ; Status DC Divalproex Sodium (Depakote Sprinkles) 250 mg TID@0900,1300,1700 PO Last administered on 02/09/17 09:13; Start 02/07/17 at 09:00; Stop 02/09/17 at 13:03 ; Status DC Fluvoxamine Maleate (Luvox) 50 mg HS PO Last administered on 02/13/17 19:32; Start 02/06/17 at 21:00; Stop 02/14/17 at 18:51; Status DC Quetiapine Fumarate (SEROquel) 25 mg TID PO Last administered on 02/09/17 09: 16; Start 02/09/17 at 09:00; Stop 02/09/17 at 13:30; Status DC Divalproex Sodium (Depakote Sprinkles) 375 mg TID@0900,1300,1700 PO Last administered on 02/16/17 08:01; Start 02/09/17 at 13:00; Stop 02/16/17 at 19:13 ; Status DC Quetiapine Fumarate (SEROquel) 37.5 mg TID PO Last administered on 02/12/17 12 :55; Start 02/09/17 at 14:00; Stop 02/12/17 at 17:56; Status DC Olanzapine (ZyPREXA) 5 mg 1X ONCE PO Last administered on 02/12/17 11:57; Start 02/12/17 at 12:00; Stop 02/12/17 at 12:01; Status DC Quetiapine Fumarate (SEROquel) 50 mg TID PO Last administered on 02/19/17 13: 43; Start 02/12/17 at 21:00; Stop 02/19/17 at 18:29; Status DC Lorazepam (Ativan) 0.5 mg PRN Q2HR PRN PO ANXIETY / AGITATION Last administered on 02/26/17 17:29; Start 02/13/17 at 18:45 Lorazepam (Ativan) 0.5 mg BID PO Last administered on 02/16/17 08:04; Start at 21:00; Stop 02/17/17 at 17:37; Status DC Fluvoxamine Maleate (Luvox) 75 mg HS PO Last administered on 02/15/17 19:11; Start 02/14/17 at 21:00; Stop 02/16/17 at 22:01; Status DC Trazodone HCl (Desyrel) 12.5 mg TID PO Last administered on 02/14/17 19:39; Start 02/14/17 at 19:00; Stop 02/14/17 at 21:12; Status DC Trazodone HCl (Desyrel) 12.5 mg TIDWMEALS PO Last administered on 02/19/17 07: 57; Start 02/15/17 at 08:00; Stop 02/19/17 at 09:00; Status DC Fluvoxamine Maleate (Luvox) 100 mg HS PO Last administered on 02/26/17 19:28; Start 02/16/17 at 21:00 Lorazepam (Ativan) 0.25 mg BID PO Last administered on 02/18/17 20:06; Start 02/17/17 at 21:00; Stop 02/18/17 at 22:00; Status DC Trazodone HCl (Desyrel) 12.5 mg QID PO Last administered on 02/26/17 19:28; Start 02/19/17 at 09:00 Risperidone (RisperDAL) 0.125 mg TID@0900,1300,1700 PO Last administered on 17:31; Start 02/20/17 at 09:00; Stop 02/20/17 at 22:50; Status DC Mirtazapine (Remeron) 15 mg QHS PO Last administered on 02/26/17 19:29; Start 02/21/17 at 21:00 Trazodone HCl (Desyrel) 50 mg PRN QHS PRN PO INSOMNIA, MAY REPEAT X1 Last administered on 02/23/17 00:34; Start 02/20/17 at 22:45; Stop 02/23/17 at 10:59 ; Status DC Risperidone (RisperDAL) 0.25 mg TID@0900,1300,1700 PO Last administered on 02/24 17:20; Start 02/21/17 at 09:00; Stop 02/24/17 at 19:06; Status DC Trazodone HCl (Desyrel) 100 mg PRN QHS PRN PO INSOMNIA, MAY REPEAT X1 Last administered on 02/25/17 23:46; Start 02/23/17 at 11:15 Risperidone (RisperDAL) 0.375 mg TID@0900,1300,1700 PO Last administered on 16:26; Start 02/25/17 at 09:00; Stop 02/26/17 at 18:57; Status DC Carbamazepine (TEGretol) 200 mg QHS PO Last administered on 02/26/17 19:28; Start 02/24/17 at 21:00 Enoxaparin Sodium (Lovenox) 40 mg Q24H SQ Last administered on 02/26/17 08:04 ; Start 02/25/17 at 14:00 Cefpodoxime Proxetil (Vantin) 100 mg BID PO Last administered on 02/26/17 19: 28; Start 02/25/17 at 21:00 Risperidone (RisperDAL) 0.5 mg TID@0900,1300,1700 PO ; Start 02/27/17 at 09:00 Active Scripts Active Reported Atorvastatin Calcium 40 Mg Tablet 40 Mg PO QHS Naproxen 500 Mg Tablet 500 Mg PO BID Lorazepam 0.5 Mg Tablet 0.5 Mg PO PRN Q4HRS PRN Seroquel (Quetiapine Fumarate) 25 Mg Tablet 25 Mg PO BID Zoloft (Sertraline Hcl) 100 Mg Tablet 100 Mg PO DAILY Levothyroxine Sodium 112 Mcg Tablet 112 Mcg PO DAILYAC Olanzapine 5 Mg Tablet 5 Mg PO HS Alprazolam 0.5 Mg Tablet 0.5 Mg PO BID Diagnosis: Problems: (1) Anxiety disorder (2) Bipolar 1 disorder, mixed, moderate (3) Dementia in Alzheimer's disease with delusions (4) Dementia in Alzheimer's disease with depression (5) Dementia, vascular, with depression (6) Dementia, vascular, with delusions (7) Impulse control disorder ELEANOR BILLS MD Feb 26, 2017 20:44
[2017-02-27] MEDS: LEVOTHYROXINE 112 MCG TABLET PO SCH (05:52)
[2017-02-27 06:26] VITALS: BP 171/70
[2017-02-27 07:46] LABS: BASO # 0.1 x10^3/uL (0.0-0.2); BASO % 1 % (0-3); EOS # 0.7 x10^3/uL (0.0-0.7); EOS % 7 % (0-3); HEMATOCRIT 35.2 % (36.0-47.0); HEMOGLOBIN 11.7 g/dL (12.0-15.5); LYMPH # 1.7 x10^3/uL (1.0-4.8); LYMPH % 16 % (24-48); MEAN CORPUSCULAR HEMOGLOBIN 30 pg (25-35); MEAN CORPUSCULAR HGB CONC 33 g/dL (31-37); MEAN CORPUSCULAR VOLUME 91 fL (79-100); MONO % 10 % (0-9); NEUT # 7.1 x10^3uL (1.8-7.7); NEUT % 67 % (31-73); PLATELET COUNT 392 x10^3/uL (140-400); RED BLOOD COUNT 3.88 x10^6/uL (3.50-5.40); RED CELL DISTRIBUTION WIDTH 15.5 % (11.5-14.5); WHITE BLOOD COUNT 10.6 x10^3/uL (4.0-11.0)
[2017-02-27 07:58] LABS: ALBUMIN 2.7 g/dL (3.4-5.0); ALBUMIN/GLOBULIN RATIO 0.9 (1.0-1.7); CALCIUM 8.1 mg/dL (8.5-10.1); CREATININE 0.6 mg/dL (0.6-1.0); GFR 99.7; POTASSIUM 4.1 mmol/L (3.5-5.1); TOTAL BILIRUBIN 0.2 mg/dL (0.2-1.0); TOTAL PROTEIN 5.6 g/dL (6.4-8.2)
[2017-02-27] MEDS: DOCUSATE SODIUM 100 MG CAPSULE PO SCH ×2 (09:35→19:14)
[2017-02-27] MEDS: ENOXAPARIN 40 MG/0.4 ML DISP.SYRIN. SQ SCH (09:36)
[2017-02-27] MEDS: POLYETHYLENE GLYCOL 3350 17 GM PACKET. PO SCH (09:36)
[2017-02-27] MEDS: traZODone 50 MG TABLET. PO SCH ×4 (09:36→19:15)
[2017-02-27] MEDS: NAPROXEN 500 MG TABLET PO SCH ×2 (09:36→19:14)
[2017-02-27] MEDS: CEFPODOXIME PROXETIL 100 MG TABLET PO SCH ×2 (09:36→19:14)
[2017-02-27] MEDS: risperiDONE 0.5 MG TABLET. PO SCH ×3 (09:38→17:03)
--- NOTE | 2017-02-27 09:46 | PN ---
DATE: 02/25/2017 SUBJECTIVE: This late entry 02/25/2017 covers elements not covered in my initial note of 02/25/2017, met with the patient evening of 02/25/2017. I discussed the patient with the nursing staff earlier in the day as well. The patient continues to have episodic yelling, mood lability, cursing at staff occasionally when not getting her way. REVIEW OF SYSTEMS: Ambulation impaired, in a Broda chair. No CV, , pulmonary, eye, ENT system symptoms on review. Reliability poor. In fact, she is quite pleasant, verbal, smiling with me, but this was brief as all reports by nursing staff prior to that observation had been of her ongoing mood lability and yelling. MENTAL STATUS EXAM: Oriented to herself. Insight, judgment, recent and remote memory, attention, concentration, fund of knowledge poor, consistent with her diagnosis mentioned in my initial note. PLAN: Continue current psychotropics. Risperdal was just increased. We will wait and see how she does with this before making further changes. Reviewed drug interactions, risk/benefit ratio favors no further change for now. MAN Aden BILLS MD DR: JAIME/meli JOB#: [id number] / [id number]
[2017-02-27] MEDS: LORazepam 0.5 MG TABLET PO PRN ×2 (11:31→17:03)
[2017-02-27] MEDS: ACETAMINOPHEN 325 MG TABLET PO PRN ×2 (11:31→17:04)
[2017-02-27 16:13] VITALS: BP 101/53
[2017-02-27] MEDS: MIRTAZAPINE 15 MG TABLET PO SCH (19:14)
[2017-02-27] MEDS: carBAMazepine 200 MG TABLET PO SCH (19:14)
[2017-02-27] MEDS: ATORVASTATIN CALCIUM 20 MG TABLET PO SCH (19:14)
--- NOTE | 2017-02-27 20:31 | PDOC ---
Exam Jeanmarie Demential Exam: Jeanmarie Note: Please also refer to the separate dictated note~for this date of service dictated separately.~Patient seen individually. Discussed the patient with Nursing staff reviewed the chart.~Reviewed interim history and current functioning. Reviewed vital signs,~Labs/ Radiology~and current medications noted below. Continue current treatment with the changes noted in the dictated addendum note Assessment: Vital Signs: Vital Signs Date Time Temp Pulse Resp B/P (MAP) Pulse Ox O2 Delivery O2 Flow Rate FiO2 02/27/17 16:13 97.2 76 18 101/53 (69) 94 Room Air I&O Intake and Output 02/28/17 07:00 Intake Total 560 ml Balance 560 ml Intake Oral 560 ml # Bowel Movements 1 Labs: Laboratory Tests Test 02/27/17 07:36 White Blood Count 10.6 x10^3/uL (4.0-11.0) Red Blood Count 3.88 x10^6/uL (3.50-5.40) Hemoglobin 11.7 g/dL (12.0-15.5) L Hematocrit 35.2 % (36.0-47.0) L Mean Corpuscular Volume 91 fL (79-100) Mean Corpuscular Hemoglobin 30 pg (25-35) Mean Corpuscular Hemoglobin Concent 33 g/dL (31-37) Red Cell Distribution Width 15.5 % (11.5-14.5) H Platelet Count 392 x10^3/uL (140-400) Neutrophils (%) (Auto) 67 % (31-73) Lymphocytes (%) (Auto) 16 % (24-48) L Monocytes (%) (Auto) 10 % (0-9) H Eosinophils (%) (Auto) 7 % (0-3) H Basophils (%) (Auto) 1 % (0-3) Neutrophils # (Auto) 7.1 x10^3uL (1.8-7.7) Lymphocytes # (Auto) 1.7 x10^3/uL (1.0-4.8) Monocytes # (Auto) 1.0 x10^3/uL (0.0-1.1) Eosinophils # (Auto) 0.7 x10^3/uL (0.0-0.7) Basophils # (Auto) 0.1 x10^3/uL (0.0-0.2) Sodium Level 146 mmol/L (136-145) H Potassium Level 4.1 mmol/L (3.5-5.1) Chloride Level 111 mmol/L (98-107) H Carbon Dioxide Level 28 mmol/L (21-32) Anion Gap 7 (6-14) Blood Urea Nitrogen 21 mg/dL (7-20) H Creatinine 0.6 mg/dL (0.6-1.0) Estimated GFR (Cockcroft-Gault) 99.7 BUN/Creatinine Ratio 35 (6-20) H Glucose Level 102 mg/dL (70-99) H Calcium Level 8.1 mg/dL (8.5-10.1) L Total Bilirubin 0.2 mg/dL (0.2-1.0) Aspartate Amino Transferase (AST) 26 U/L (15-37) Alanine Aminotransferase (ALT) 61 U/L (14-59) H Alkaline Phosphatase 92 U/L (46-116) Total Protein 5.6 g/dL (6.4-8.2) L Albumin 2.7 g/dL (3.4-5.0) L Albumin/Globulin Ratio 0.9 (1.0-1.7) L Current Medications: Meds: Current Medications Lorazepam (Ativan) 0.5 mg 1X ONCE PO Last administered on 02/01/17 19:14; Start 02/01/17 at 19:15; Stop 02/01/17 at 19:16; Status DC Ceftriaxone Sodium (Rocephin Im) 1 gm 1X ONCE IM Last administered on 20:45; Start 02/01/17 at 20:30; Stop 02/01/17 at 20:31; Status DC Acetaminophen (Tylenol) 650 mg PRN Q6HRS PRN PO MILD PAIN / TEMP Last administered on 02/27/17 17:04; Start 02/01/17 at 23:15 Multi-Ingredient Ointment (Analgesic [place]) 1 rosita PRN QID PRN TP MUSCLE PAIN; Start 02/01/17 at 23:15 Al Hydroxide/Mg Hydroxide (Mylanta Plus Xs) 15 ml PRN AFTMEALHC PRN PO DYSPEPSIA; Start 02/01/17 at 23:15 Magnesium Hydroxide (Milk Of Magnesia) 2,400 mg PRN QHS PRN PO CONSTIPATION Last administered on 02/13/17 02:05; Start 02/01/17 at 23:15 Olanzapine (ZyPREXA) 5 mg HS PO Last administered on 02/13/17 19:31; Start at 21:00; Stop 02/14/17 at 18:51; Status DC Quetiapine Fumarate (SEROquel) 25 mg BID PO Last administered on 02/08/17 08: 42; Start 02/02/17 at 09:00; Stop 02/08/17 at 19:16; Status DC Sertraline HCl (Zoloft) 100 mg DAILY PO Last administered on 02/06/17 08:01; Start 02/02/17 at 09:00; Stop 02/06/17 at 18:56; Status DC Olanzapine (ZyPREXA) 5 mg 1X ONCE PO Last administered on 02/02/17 00:27; Start 02/02/17 at 00:30; Stop 02/02/17 at 00:31; Status DC Alprazolam (Xanax) 0.5 mg BID PO Last administered on 02/13/17 11:42; Start at 09:00; Stop 02/13/17 at 18:35; Status DC Lorazepam (Ativan) 0.5 mg PRN Q4HRS PRN PO ANXIETY / AGITATION Last administered on 02/02/17 14:57; Start 02/02/17 at 00:15; Stop 02/02/17 at 15:59 ; Status DC Levothyroxine Sodium (Synthroid) 112 mcg DAILY06 PO Last administered on 05:52; Start 02/02/17 at 10:00 Naproxen (Naprosyn) 500 mg BID PO Last administered on 02/27/17 19:14; Start 02/02/17 at 09:00 Atorvastatin Calcium (Lipitor) 40 mg QHS PO Last administered on 02/27/17 19: 14; Start 02/02/17 at 21:00 Mirtazapine (Remeron) 7.5 mg QHS PO Last administered on 02/20/17 23:08; Start 02/02/17 at 21:00; Stop 02/21/17 at 19:38; Status DC Olanzapine (ZyPREXA ZYDIS) 2.5 mg PRN Q2HR PRN PO PSYCHOSIS Last administered on 02/26/17 17:58; Start 02/02/17 at 15:45 Alprazolam (Xanax) 0.25 mg PRN Q2HR PRN PO ANXIETY / AGITATION Last administered on 02/13/17 16:33; Start 02/02/17 at 15:45; Stop 02/13/17 at 18:35 ; Status DC Docusate Sodium (Colace) 100 mg BID PO Last administered on 02/27/17 19:14; Start 02/02/17 at 21:00 Polyethylene Glycol (miraLAX) 17 gm DAILY PO Last administered on 02/27/17 09: 36; Start 02/03/17 at 09:00 Vitamin D (Vitamin D3) 50,000 unit WEEKLY PO Last administered on 02/24/17 10: 12; Start 02/10/17 at 09:00 Divalproex Sodium (Depakote Sprinkles) 125 mg TID@0900,1300,1700 PO Last administered on 02/06/17 16:46; Start 02/04/17 at 09:00; Stop 02/06/17 at 18:56 ; Status DC Divalproex Sodium (Depakote Sprinkles) 250 mg TID@0900,1300,1700 PO Last administered on 02/09/17 09:13; Start 02/07/17 at 09:00; Stop 02/09/17 at 13:03 ; Status DC Fluvoxamine Maleate (Luvox) 50 mg HS PO Last administered on 02/13/17 19:32; Start 02/06/17 at 21:00; Stop 02/14/17 at 18:51; Status DC Quetiapine Fumarate (SEROquel) 25 mg TID PO Last administered on 02/09/17 09: 16; Start 02/09/17 at 09:00; Stop 02/09/17 at 13:30; Status DC Divalproex Sodium (Depakote Sprinkles) 375 mg TID@0900,1300,1700 PO Last administered on 02/16/17 08:01; Start 02/09/17 at 13:00; Stop 02/16/17 at 19:13 ; Status DC Quetiapine Fumarate (SEROquel) 37.5 mg TID PO Last administered on 02/12/17 12 :55; Start 02/09/17 at 14:00; Stop 02/12/17 at 17:56; Status DC Olanzapine (ZyPREXA) 5 mg 1X ONCE PO Last administered on 02/12/17 11:57; Start 02/12/17 at 12:00; Stop 02/12/17 at 12:01; Status DC Quetiapine Fumarate (SEROquel) 50 mg TID PO Last administered on 02/19/17 13: 43; Start 02/12/17 at 21:00; Stop 02/19/17 at 18:29; Status DC Lorazepam (Ativan) 0.5 mg PRN Q2HR PRN PO ANXIETY / AGITATION Last administered on 02/27/17 17:03; Start 02/13/17 at 18:45 Lorazepam (Ativan) 0.5 mg BID PO Last administered on 02/16/17 08:04; Start at 21:00; Stop 02/17/17 at 17:37; Status DC Fluvoxamine Maleate (Luvox) 75 mg HS PO Last administered on 02/15/17 19:11; Start 02/14/17 at 21:00; Stop 02/16/17 at 22:01; Status DC Trazodone HCl (Desyrel) 12.5 mg TID PO Last administered on 02/14/17 19:39; Start 02/14/17 at 19:00; Stop 02/14/17 at 21:12; Status DC Trazodone HCl (Desyrel) 12.5 mg TIDWMEALS PO Last administered on 02/19/17 07: 57; Start 02/15/17 at 08:00; Stop 02/19/17 at 09:00; Status DC Fluvoxamine Maleate (Luvox) 100 mg HS PO Last administered on 02/27/17 19:14; Start 02/16/17 at 21:00 Lorazepam (Ativan) 0.25 mg BID PO Last administered on 02/18/17 20:06; Start 02/17/17 at 21:00; Stop 02/18/17 at 22:00; Status DC Trazodone HCl (Desyrel) 12.5 mg QID PO Last administered on 02/27/17 19:15; Start 02/19/17 at 09:00 Risperidone (RisperDAL) 0.125 mg TID@0900,1300,1700 PO Last administered on 17:31; Start 02/20/17 at 09:00; Stop 02/20/17 at 22:50; Status DC Mirtazapine (Remeron) 15 mg QHS PO Last administered on 02/27/17 19:14; Start 02/21/17 at 21:00 Trazodone HCl (Desyrel) 50 mg PRN QHS PRN PO INSOMNIA, MAY REPEAT X1 Last administered on 02/23/17 00:34; Start 02/20/17 at 22:45; Stop 02/23/17 at 10:59 ; Status DC Risperidone (RisperDAL) 0.25 mg TID@0900,1300,1700 PO Last administered on 02/24 17:20; Start 02/21/17 at 09:00; Stop 02/24/17 at 19:06; Status DC Trazodone HCl (Desyrel) 100 mg PRN QHS PRN PO INSOMNIA, MAY REPEAT X1 Last administered on 02/25/17 23:46; Start 02/23/17 at 11:15 Risperidone (RisperDAL) 0.375 mg TID@0900,1300,1700 PO Last administered on 16:26; Start 02/25/17 at 09:00; Stop 02/26/17 at 18:57; Status DC Carbamazepine (TEGretol) 200 mg QHS PO Last administered on 02/27/17 19:14; Start 02/24/17 at 21:00 Enoxaparin Sodium (Lovenox) 40 mg Q24H SQ Last administered on 02/27/17 09:36 ; Start 02/25/17 at 14:00 Cefpodoxime Proxetil (Vantin) 100 mg BID PO Last administered on 02/27/17 19: 14; Start 02/25/17 at 21:00 Risperidone (RisperDAL) 0.5 mg TID@0900,1300,1700 PO Last administered on 17:03; Start 02/27/17 at 09:00 Active Scripts Active Reported Atorvastatin Calcium 40 Mg Tablet 40 Mg PO QHS Naproxen 500 Mg Tablet 500 Mg PO BID Lorazepam 0.5 Mg Tablet 0.5 Mg PO PRN Q4HRS PRN Seroquel (Quetiapine Fumarate) 25 Mg Tablet 25 Mg PO BID Zoloft (Sertraline Hcl) 100 Mg Tablet 100 Mg PO DAILY Levothyroxine Sodium 112 Mcg Tablet 112 Mcg PO DAILYAC Olanzapine 5 Mg Tablet 5 Mg PO HS Alprazolam 0.5 Mg Tablet 0.5 Mg PO BID Diagnosis: Problems: (1) Anxiety disorder (2) Bipolar 1 disorder, mixed, moderate (3) Dementia in Alzheimer's disease with delusions (4) Dementia in Alzheimer's disease with depression (5) Dementia, vascular, with depression (6) Dementia, vascular, with delusions (7) Impulse control disorder ELEANOR BILLS MD Feb 27, 2017 20:31
--- NOTE | 2017-02-28 04:18 | PN ---
DATE: 02/26/2017 PSYCHIATRIC PROGRESS NOTE This is a later entry 02/26/2017, covers elements not covered in my initial order of 02/26/2017. SUBJECTIVE: I met with the patient evening of 02/26/2017. Nursing staff had called me earlier. The patient continues to yell, is extremely labile, anxious, restless. Cursing at staff. REVIEW OF SYSTEMS: Ambulation impaired. No CV, , pulmonary, eye, ENT system symptoms on review. Reliability poor. MENTAL STATUS EXAM: Oriented to herself. Insight, judgment, recent and remote memory, attention, concentration, fund of knowledge poor, consistent with her diagnosis. The patient slept 7-1/4 hours previous evening. Diagnosis mentioned in my initial note. She is on Vantin for pneumonitis, we will be checking labs and carbamazepine level on 02/27/2017. IMPRESSION: Unchanged from initial note. PLAN: Increase Risperdal from 0.375 mg 3 times a day to 0.5 mg 3 times a day. Maintain the rest of the psychotropics. Reviewed drug interactions, risk/benefit ratio, favors no further change. MAN Aden BILLS MD DR: JAIME/meli JOB#: [id number] / [id number]
[2017-02-28] MEDS: LEVOTHYROXINE 112 MCG TABLET PO SCH (05:59)
[2017-02-28] MEDS: LORazepam 0.5 MG TABLET PO PRN ×3 (06:57→16:41)
[2017-02-28 07:11] VITALS: BP 157/91
[2017-02-28] MEDS: CEFPODOXIME PROXETIL 100 MG TABLET PO SCH ×2 (07:48→19:44)
[2017-02-28] MEDS: DOCUSATE SODIUM 100 MG CAPSULE PO SCH ×2 (07:48→19:44)
[2017-02-28] MEDS: NAPROXEN 500 MG TABLET PO SCH ×2 (07:50→19:43)
[2017-02-28] MEDS: POLYETHYLENE GLYCOL 3350 17 GM PACKET. PO SCH (07:51)
[2017-02-28] MEDS: ENOXAPARIN 40 MG/0.4 ML DISP.SYRIN. SQ SCH (07:52)
[2017-02-28] MEDS: risperiDONE 0.5 MG TABLET. PO SCH ×3 (07:54→16:41)
[2017-02-28] MEDS: traZODone 50 MG TABLET. PO SCH ×3 (07:55→16:43)
[2017-02-28 09:34] LABS: CARBAM 6.4 mcg/mL (4.0-12.0)
[2017-02-28] MEDS: ACETAMINOPHEN 325 MG TABLET PO PRN (13:16)
[2017-02-28 16:02] VITALS: BP 134/80
[2017-02-28] MEDS: ATORVASTATIN CALCIUM 20 MG TABLET PO SCH (19:43)
[2017-02-28] MEDS: carBAMazepine 200 MG TABLET PO SCH (19:43)
[2017-02-28] MEDS: MIRTAZAPINE 15 MG TABLET PO SCH (19:44)
[2017-02-28] MEDS: traZODone 100 MG TABLET. PO PRN ×2 (19:45→22:53)
--- NOTE | 2017-02-28 20:50 | PDOC ---
Exam Jeanmarie Demential Exam: Jeanmarie Note: Please also refer to the separate dictated note~for this date of service dictated separately.~Patient seen individually. Discussed the patient with Nursing staff reviewed the chart.~Reviewed interim history and current functioning. Reviewed vital signs,~Labs/ Radiology~and current medications noted below. Continue current treatment with the changes noted in the dictated addendum note Assessment: Vital Signs: Vital Signs Date Time Temp Pulse Resp B/P (MAP) Pulse Ox O2 Delivery O2 Flow Rate FiO2 02/28/17 16:02 98.3 87 18 134/80 (98) 95 02/27/17 16:13 Room Air I&O Intake and Output 03/01/17 07:00 Intake Total 1440 ml Balance 1440 ml Intake Oral 1440 ml # Bowel Movements 1 Current Medications: Meds: Current Medications Lorazepam (Ativan) 0.5 mg 1X ONCE PO Last administered on 02/01/17 19:14; Start 02/01/17 at 19:15; Stop 02/01/17 at 19:16; Status DC Ceftriaxone Sodium (Rocephin Im) 1 gm 1X ONCE IM Last administered on 20:45; Start 02/01/17 at 20:30; Stop 02/01/17 at 20:31; Status DC Acetaminophen (Tylenol) 650 mg PRN Q6HRS PRN PO MILD PAIN / TEMP Last administered on 02/28/17 13:16; Start 02/01/17 at 23:15 Multi-Ingredient Ointment (Analgesic [place]) 1 rosita PRN QID PRN TP MUSCLE PAIN; Start 02/01/17 at 23:15 Al Hydroxide/Mg Hydroxide (Mylanta Plus Xs) 15 ml PRN AFTMEALHC PRN PO DYSPEPSIA; Start 02/01/17 at 23:15 Magnesium Hydroxide (Milk Of Magnesia) 2,400 mg PRN QHS PRN PO CONSTIPATION Last administered on 02/13/17 02:05; Start 02/01/17 at 23:15 Olanzapine (ZyPREXA) 5 mg HS PO Last administered on 02/13/17 19:31; Start at 21:00; Stop 02/14/17 at 18:51; Status DC Quetiapine Fumarate (SEROquel) 25 mg BID PO Last administered on 02/08/17 08: 42; Start 02/02/17 at 09:00; Stop 02/08/17 at 19:16; Status DC Sertraline HCl (Zoloft) 100 mg DAILY PO Last administered on 02/06/17 08:01; Start 02/02/17 at 09:00; Stop 02/06/17 at 18:56; Status DC Olanzapine (ZyPREXA) 5 mg 1X ONCE PO Last administered on 02/02/17 00:27; Start 02/02/17 at 00:30; Stop 02/02/17 at 00:31; Status DC Alprazolam (Xanax) 0.5 mg BID PO Last administered on 02/13/17 11:42; Start at 09:00; Stop 02/13/17 at 18:35; Status DC Lorazepam (Ativan) 0.5 mg PRN Q4HRS PRN PO ANXIETY / AGITATION Last administered on 02/02/17 14:57; Start 02/02/17 at 00:15; Stop 02/02/17 at 15:59 ; Status DC Levothyroxine Sodium (Synthroid) 112 mcg DAILY06 PO Last administered on 05:59; Start 02/02/17 at 10:00 Naproxen (Naprosyn) 500 mg BID PO Last administered on 02/28/17 19:43; Start 02/02/17 at 09:00 Atorvastatin Calcium (Lipitor) 40 mg QHS PO Last administered on 02/28/17 19: 43; Start 02/02/17 at 21:00 Mirtazapine (Remeron) 7.5 mg QHS PO Last administered on 02/20/17 23:08; Start 02/02/17 at 21:00; Stop 02/21/17 at 19:38; Status DC Olanzapine (ZyPREXA ZYDIS) 2.5 mg PRN Q2HR PRN PO PSYCHOSIS Last administered on 02/28/17 13:15; Start 02/02/17 at 15:45 Alprazolam (Xanax) 0.25 mg PRN Q2HR PRN PO ANXIETY / AGITATION Last administered on 02/13/17 16:33; Start 02/02/17 at 15:45; Stop 02/13/17 at 18:35 ; Status DC Docusate Sodium (Colace) 100 mg BID PO Last administered on 02/28/17 19:44; Start 02/02/17 at 21:00 Polyethylene Glycol (miraLAX) 17 gm DAILY PO Last administered on 02/28/17 07 :51; Start 02/03/17 at 09:00 Vitamin D (Vitamin D3) 50,000 unit WEEKLY PO Last administered on 02/24/17 10: 12; Start 02/10/17 at 09:00 Divalproex Sodium (Depakote Sprinkles) 125 mg TID@0900,1300,1700 PO Last administered on 02/06/17 16:46; Start 02/04/17 at 09:00; Stop 02/06/17 at 18:56 ; Status DC Divalproex Sodium (Depakote Sprinkles) 250 mg TID@0900,1300,1700 PO Last administered on 02/09/17 09:13; Start 02/07/17 at 09:00; Stop 02/09/17 at 13:03 ; Status DC Fluvoxamine Maleate (Luvox) 50 mg HS PO Last administered on 02/13/17 19:32; Start 02/06/17 at 21:00; Stop 02/14/17 at 18:51; Status DC Quetiapine Fumarate (SEROquel) 25 mg TID PO Last administered on 02/09/17 09: 16; Start 02/09/17 at 09:00; Stop 02/09/17 at 13:30; Status DC Divalproex Sodium (Depakote Sprinkles) 375 mg TID@0900,1300,1700 PO Last administered on 02/16/17 08:01; Start 02/09/17 at 13:00; Stop 02/16/17 at 19:13 ; Status DC Quetiapine Fumarate (SEROquel) 37.5 mg TID PO Last administered on 02/12/17 12 :55; Start 02/09/17 at 14:00; Stop 02/12/17 at 17:56; Status DC Olanzapine (ZyPREXA) 5 mg 1X ONCE PO Last administered on 02/12/17 11:57; Start 02/12/17 at 12:00; Stop 02/12/17 at 12:01; Status DC Quetiapine Fumarate (SEROquel) 50 mg TID PO Last administered on 02/19/17 13: 43; Start 02/12/17 at 21:00; Stop 02/19/17 at 18:29; Status DC Lorazepam (Ativan) 0.5 mg PRN Q2HR PRN PO ANXIETY / AGITATION Last administered on 02/28/17 16:41; Start 02/13/17 at 18:45 Lorazepam (Ativan) 0.5 mg BID PO Last administered on 02/16/17 08:04; Start at 21:00; Stop 02/17/17 at 17:37; Status DC Fluvoxamine Maleate (Luvox) 75 mg HS PO Last administered on 02/15/17 19:11; Start 02/14/17 at 21:00; Stop 02/16/17 at 22:01; Status DC Trazodone HCl (Desyrel) 12.5 mg TID PO Last administered on 02/14/17 19:39; Start 02/14/17 at 19:00; Stop 02/14/17 at 21:12; Status DC Trazodone HCl (Desyrel) 12.5 mg TIDWMEALS PO Last administered on 02/19/17 07: 57; Start 02/15/17 at 08:00; Stop 02/19/17 at 09:00; Status DC Fluvoxamine Maleate (Luvox) 100 mg HS PO Last administered on 02/27/17 19:14; Start 02/16/17 at 21:00; Stop 02/28/17 at 18:33; Status DC Lorazepam (Ativan) 0.25 mg BID PO Last administered on 02/18/17 20:06; Start 02/17/17 at 21:00; Stop 02/18/17 at 22:00; Status DC Trazodone HCl (Desyrel) 12.5 mg QID PO Last administered on 02/28/17 16:43; Start 02/19/17 at 09:00; Stop 02/28/17 at 18:19; Status DC Risperidone (RisperDAL) 0.125 mg TID@0900,1300,1700 PO Last administered on 17:31; Start 02/20/17 at 09:00; Stop 02/20/17 at 22:50; Status DC Mirtazapine (Remeron) 15 mg QHS PO Last administered on 02/28/17 19:44; Start 02/21/17 at 21:00 Trazodone HCl (Desyrel) 50 mg PRN QHS PRN PO INSOMNIA, MAY REPEAT X1 Last administered on 02/23/17 00:34; Start 02/20/17 at 22:45; Stop 02/23/17 at 10:59 ; Status DC Risperidone (RisperDAL) 0.25 mg TID@0900,1300,1700 PO Last administered on 02/24 17:20; Start 02/21/17 at 09:00; Stop 02/24/17 at 19:06; Status DC Trazodone HCl (Desyrel) 100 mg PRN QHS PRN PO INSOMNIA, MAY REPEAT X1 Last administered on 02/28/17 19:45; Start 02/23/17 at 11:15 Risperidone (RisperDAL) 0.375 mg TID@0900,1300,1700 PO Last administered on 16:26; Start 02/25/17 at 09:00; Stop 02/26/17 at 18:57; Status DC Carbamazepine (TEGretol) 200 mg QHS PO Last administered on 02/27/17 19:14; Start 02/24/17 at 21:00; Stop 02/28/17 at 18:19; Status DC Enoxaparin Sodium (Lovenox) 40 mg Q24H SQ Last administered on 02/28/17 07:52 ; Start 02/25/17 at 14:00 Cefpodoxime Proxetil (Vantin) 100 mg BID PO Last administered on 02/28/17 19: 44; Start 02/25/17 at 21:00 Risperidone (RisperDAL) 0.5 mg TID@0900,1300,1700 PO Last administered on 02/28 16:41; Start 02/27/17 at 09:00 Carbamazepine (TEGretol) 150 mg BID PO Last administered on 02/28/17 19:43; Start 02/28/17 at 21:00 Trazodone HCl (Desyrel) 25 mg TID@0900,1300,1700 PO ; Start 03/01/17 at 09:00 Fluvoxamine Maleate (Luvox) 150 mg HS PO Last administered on 02/28/17t 19:42 ; Start 02/28/17 at 21:00 Active Scripts Active Reported Atorvastatin Calcium 40 Mg Tablet 40 Mg PO QHS Naproxen 500 Mg Tablet 500 Mg PO BID Lorazepam 0.5 Mg Tablet 0.5 Mg PO PRN Q4HRS PRN Seroquel (Quetiapine Fumarate) 25 Mg Tablet 25 Mg PO BID Zoloft (Sertraline Hcl) 100 Mg Tablet 100 Mg PO DAILY Levothyroxine Sodium 112 Mcg Tablet 112 Mcg PO DAILYAC Olanzapine 5 Mg Tablet 5 Mg PO HS Alprazolam 0.5 Mg Tablet 0.5 Mg PO BID Diagnosis: Problems: (1) Anxiety disorder (2) Bipolar 1 disorder, mixed, moderate (3) Dementia in Alzheimer's disease with delusions (4) Dementia in Alzheimer's disease with depression (5) Dementia, vascular, with depression (6) Dementia, vascular, with delusions (7) Impulse control disorder ELEANOR BILLS MD Feb 28, 2017 20:50
[2017-03-01] MEDS: LEVOTHYROXINE 112 MCG TABLET PO SCH (05:46)
[2017-03-01 06:28] VITALS: BP 137/69
[2017-03-01] MEDS: ACETAMINOPHEN 325 MG TABLET PO PRN (07:49)
[2017-03-01] MEDS: NAPROXEN 500 MG TABLET PO SCH ×2 (08:02→19:31)
[2017-03-01] MEDS: carBAMazepine 200 MG TABLET PO SCH ×2 (08:02→19:31)
[2017-03-01] MEDS: DOCUSATE SODIUM 100 MG CAPSULE PO SCH ×2 (08:02→19:29)
[2017-03-01] MEDS: risperiDONE 0.5 MG TABLET. PO SCH ×3 (08:02→16:40)
[2017-03-01] MEDS: ENOXAPARIN 40 MG/0.4 ML DISP.SYRIN. SQ SCH (08:02)
[2017-03-01] MEDS: POLYETHYLENE GLYCOL 3350 17 GM PACKET. PO SCH (08:02)
[2017-03-01] MEDS: CEFPODOXIME PROXETIL 100 MG TABLET PO SCH ×2 (08:03→19:30)
[2017-03-01] MEDS: traZODone 50 MG TABLET. PO SCH ×3 (08:03→16:41)
--- NOTE | 2017-03-01 09:18 | PN ---
DATE: 02/27/2017 This entry 02/27/2017 covers elements not covered in my initial note of 02/27/2017. I met with the patient afternoon of 02/27/2017. The patient has continued to have episodic yelling, loud, disruptive, verbally screaming, still paranoid, believes someone going to try and hurt her. Received Ativan at 11:30 previous evening due to her agitation, seems to help. Risperdal was increased on 02/27/2017, 2.5 mg 3 times a day. Carbamazepine level has been sent out. The result is awaited. REVIEW OF SYSTEMS: Ambulation impaired, in a Broda chair. No CV, , pulmonary, eye, ENT system symptoms on review. Reliability poor. MENTAL STATUS EXAM: Oriented to herself. Insight, judgment, recent and remote memory, attention, concentration, fund of knowledge poor, consistent with her diagnosis as mentioned in my initial note. PLAN: Continue current psychotropics mentioned in my initial note. Risperdal was increased. Carbamazepine level is awaited. Maintain trazodone schedule 12.5 mg 4 times a day and the rest of her psychotropics. Reviewed drug interactions. Risk/benefit ratio favors no further change. ELEANOR BILLS MD DR: JAIME/meli JOB#: [id number] / [id number]
[2017-03-01 16:42] VITALS: BP 146/57
[2017-03-01] MEDS: ATORVASTATIN CALCIUM 20 MG TABLET PO SCH (19:29)
[2017-03-01] MEDS: MIRTAZAPINE 15 MG TABLET PO SCH (19:30)
[2017-03-01] MEDS: traZODone 100 MG TABLET. PO PRN (19:37)
[2017-03-01] MEDS: LORazepam 0.5 MG TABLET PO PRN (19:37)
--- NOTE | 2017-03-01 20:33 | PDOC ---
Exam Jeanmarie Demential Exam: Jeanmarie Note: Please also refer to the separate dictated note~for this date of service dictated separately.~Patient seen individually. Discussed the patient with Nursing staff reviewed the chart.~Reviewed interim history and current functioning. Reviewed vital signs,~Labs/ Radiology~and current medications noted below. Continue current treatment with the changes noted in the dictated addendum note Assessment: Vital Signs: Vital Signs Date Time Temp Pulse Resp B/P (MAP) Pulse Ox O2 Delivery O2 Flow Rate FiO2 03/01/17 16:42 98.1 88 20 146/57 (86) 93 02/27/17 16:13 Room Air I&O Intake and Output 03/02/17 07:00 Intake Total 420 ml Balance 420 ml Intake Oral 420 ml Current Medications: Meds: Current Medications Lorazepam (Ativan) 0.5 mg 1X ONCE PO Last administered on 02/01/17 19:14; Start 02/01/17 at 19:15; Stop 02/01/17 at 19:16; Status DC Ceftriaxone Sodium (Rocephin Im) 1 gm 1X ONCE IM Last administered on 20:45; Start 02/01/17 at 20:30; Stop 02/01/17 at 20:31; Status DC Acetaminophen (Tylenol) 650 mg PRN Q6HRS PRN PO MILD PAIN / TEMP Last administered on 03/01/17 07:49; Start 02/01/17 at 23:15 Multi-Ingredient Ointment (Analgesic [place]) 1 rosita PRN QID PRN TP MUSCLE PAIN; Start 02/01/17 at 23:15 Al Hydroxide/Mg Hydroxide (Mylanta Plus Xs) 15 ml PRN AFTMEALHC PRN PO DYSPEPSIA; Start 02/01/17 at 23:15 Magnesium Hydroxide (Milk Of Magnesia) 2,400 mg PRN QHS PRN PO CONSTIPATION Last administered on 02/13/17 02:05; Start 02/01/17 at 23:15 Olanzapine (ZyPREXA) 5 mg HS PO Last administered on 02/13/17 19:31; Start at 21:00; Stop 02/14/17 at 18:51; Status DC Quetiapine Fumarate (SEROquel) 25 mg BID PO Last administered on 02/08/17 08: 42; Start 02/02/17 at 09:00; Stop 02/08/17 at 19:16; Status DC Sertraline HCl (Zoloft) 100 mg DAILY PO Last administered on 02/06/17 08:01; Start 02/02/17 at 09:00; Stop 02/06/17 at 18:56; Status DC Olanzapine (ZyPREXA) 5 mg 1X ONCE PO Last administered on 02/02/17 00:27; Start 02/02/17 at 00:30; Stop 02/02/17 at 00:31; Status DC Alprazolam (Xanax) 0.5 mg BID PO Last administered on 02/13/17 11:42; Start at 09:00; Stop 02/13/17 at 18:35; Status DC Lorazepam (Ativan) 0.5 mg PRN Q4HRS PRN PO ANXIETY / AGITATION Last administered on 02/02/17 14:57; Start 02/02/17 at 00:15; Stop 02/02/17 at 15:59 ; Status DC Levothyroxine Sodium (Synthroid) 112 mcg DAILY06 PO Last administered on 05:46; Start 02/02/17 at 10:00 Naproxen (Naprosyn) 500 mg BID PO Last administered on 03/01/17 19:31; Start 02/02/17 at 09:00 Atorvastatin Calcium (Lipitor) 40 mg QHS PO Last administered on 03/01/17 19: 29; Start 02/02/17 at 21:00 Mirtazapine (Remeron) 7.5 mg QHS PO Last administered on 02/20/17 23:08; Start 02/02/17 at 21:00; Stop 02/21/17 at 19:38; Status DC Olanzapine (ZyPREXA ZYDIS) 2.5 mg PRN Q2HR PRN PO PSYCHOSIS Last administered on 03/01/17 19:37; Start 02/02/17 at 15:45 Alprazolam (Xanax) 0.25 mg PRN Q2HR PRN PO ANXIETY / AGITATION Last administered on 02/13/17 16:33; Start 02/02/17 at 15:45; Stop 02/13/17 at 18:35 ; Status DC Docusate Sodium (Colace) 100 mg BID PO Last administered on 03/01/17 19:29; Start 02/02/17 at 21:00 Polyethylene Glycol (miraLAX) 17 gm DAILY PO Last administered on 03/01/17 08 :02; Start 02/03/17 at 09:00 Vitamin D (Vitamin D3) 50,000 unit WEEKLY PO Last administered on 02/24/17 10: 12; Start 02/10/17 at 09:00 Divalproex Sodium (Depakote Sprinkles) 125 mg TID@0900,1300,1700 PO Last administered on 02/06/17 16:46; Start 02/04/17 at 09:00; Stop 02/06/17 at 18:56 ; Status DC Divalproex Sodium (Depakote Sprinkles) 250 mg TID@0900,1300,1700 PO Last administered on 02/09/17 09:13; Start 02/07/17 at 09:00; Stop 02/09/17 at 13:03 ; Status DC Fluvoxamine Maleate (Luvox) 50 mg HS PO Last administered on 02/13/17 19:32; Start 02/06/17 at 21:00; Stop 02/14/17 at 18:51; Status DC Quetiapine Fumarate (SEROquel) 25 mg TID PO Last administered on 02/09/17 09: 16; Start 02/09/17 at 09:00; Stop 02/09/17 at 13:30; Status DC Divalproex Sodium (Depakote Sprinkles) 375 mg TID@0900,1300,1700 PO Last administered on 02/16/17 08:01; Start 02/09/17 at 13:00; Stop 02/16/17 at 19:13 ; Status DC Quetiapine Fumarate (SEROquel) 37.5 mg TID PO Last administered on 02/12/17 12 :55; Start 02/09/17 at 14:00; Stop 02/12/17 at 17:56; Status DC Olanzapine (ZyPREXA) 5 mg 1X ONCE PO Last administered on 02/12/17 11:57; Start 02/12/17 at 12:00; Stop 02/12/17 at 12:01; Status DC Quetiapine Fumarate (SEROquel) 50 mg TID PO Last administered on 02/19/17 13: 43; Start 02/12/17 at 21:00; Stop 02/19/17 at 18:29; Status DC Lorazepam (Ativan) 0.5 mg PRN Q2HR PRN PO ANXIETY / AGITATION Last administered on 03/01/17 19:37; Start 02/13/17 at 18:45 Lorazepam (Ativan) 0.5 mg BID PO Last administered on 02/16/17 08:04; Start at 21:00; Stop 02/17/17 at 17:37; Status DC Fluvoxamine Maleate (Luvox) 75 mg HS PO Last administered on 02/15/17 19:11; Start 02/14/17 at 21:00; Stop 02/16/17 at 22:01; Status DC Trazodone HCl (Desyrel) 12.5 mg TID PO Last administered on 02/14/17 19:39; Start 02/14/17 at 19:00; Stop 02/14/17 at 21:12; Status DC Trazodone HCl (Desyrel) 12.5 mg TIDWMEALS PO Last administered on 02/19/17 07: 57; Start 02/15/17 at 08:00; Stop 02/19/17 at 09:00; Status DC Fluvoxamine Maleate (Luvox) 100 mg HS PO Last administered on 02/27/17 19:14; Start 02/16/17 at 21:00; Stop 02/28/17 at 18:33; Status DC Lorazepam (Ativan) 0.25 mg BID PO Last administered on 02/18/17 20:06; Start 02/17/17 at 21:00; Stop 02/18/17 at 22:00; Status DC Trazodone HCl (Desyrel) 12.5 mg QID PO Last administered on 02/28/17 16:43; Start 02/19/17 at 09:00; Stop 02/28/17 at 18:19; Status DC Risperidone (RisperDAL) 0.125 mg TID@0900,1300,1700 PO Last administered on 17:31; Start 02/20/17 at 09:00; Stop 02/20/17 at 22:50; Status DC Mirtazapine (Remeron) 15 mg QHS PO Last administered on 03/01/17 19:30; Start 02/21/17 at 21:00 Trazodone HCl (Desyrel) 50 mg PRN QHS PRN PO INSOMNIA, MAY REPEAT X1 Last administered on 02/23/17 00:34; Start 02/20/17 at 22:45; Stop 02/23/17 at 10:59 ; Status DC Risperidone (RisperDAL) 0.25 mg TID@0900,1300,1700 PO Last administered on 02/24 17:20; Start 02/21/17 at 09:00; Stop 02/24/17 at 19:06; Status DC Trazodone HCl (Desyrel) 100 mg PRN QHS PRN PO INSOMNIA, SEPTEMBER REPEAT X1 Last administered on 03/01/17 19:37; Start 02/23/17 at 11:15 Risperidone (RisperDAL) 0.375 mg TID@0900,1300,1700 PO Last administered on 16:26; Start 02/25/17 at 09:00; Stop 02/26/17 at 18:57; Status DC Carbamazepine (TEGretol) 200 mg QHS PO Last administered on 02/27/17 19:14; Start 02/24/17 at 21:00; Stop 02/28/17 at 18:19; Status DC Enoxaparin Sodium (Lovenox) 40 mg Q24H SQ Last administered on 03/01/17 08:02 ; Start 02/25/17 at 14:00 Cefpodoxime Proxetil (Vantin) 100 mg BID PO Last administered on 03/01/17 19: 30; Start 02/25/17 at 21:00 Risperidone (RisperDAL) 0.5 mg TID@0900,1300,1700 PO Last administered on 03/01 16:40; Start 02/27/17 at 09:00 Carbamazepine (TEGretol) 150 mg BID PO Last administered on 03/01/17 19:31; Start 02/28/17 at 21:00 Trazodone HCl (Desyrel) 25 mg TID@0900,1300,1700 PO Last administered on 16:41; Start 03/01/17 at 09:00 Fluvoxamine Maleate (Luvox) 150 mg HS PO Last administered on 03/01/17 19:29 ; Start 02/28/17 at 21:00 Active Scripts Active Reported Atorvastatin Calcium 40 Mg Tablet 40 Mg PO QHS Naproxen 500 Mg Tablet 500 Mg PO BID Lorazepam 0.5 Mg Tablet 0.5 Mg PO PRN Q4HRS PRN Seroquel (Quetiapine Fumarate) 25 Mg Tablet 25 Mg PO BID Zoloft (Sertraline Hcl) 100 Mg Tablet 100 Mg PO DAILY Levothyroxine Sodium 112 Mcg Tablet 112 Mcg PO DAILYAC Olanzapine 5 Mg Tablet 5 Mg PO HS Alprazolam 0.5 Mg Tablet 0.5 Mg PO BID Diagnosis: Problems: (1) Anxiety disorder (2) Bipolar 1 disorder, mixed, moderate (3) Dementia in Alzheimer's disease with delusions (4) Dementia in Alzheimer's disease with depression (5) Dementia, vascular, with depression (6) Dementia, vascular, with delusions (7) Impulse control disorder ELEANOR BILLS MD Mar 01, 2017 20:33
[2017-03-02] MEDS: LEVOTHYROXINE 112 MCG TABLET PO SCH (05:55)
[2017-03-02 06:08] VITALS: BP 137/74
[2017-03-02] MEDS: carBAMazepine 200 MG TABLET PO SCH ×2 (08:39→19:33)
[2017-03-02] MEDS: CEFPODOXIME PROXETIL 100 MG TABLET PO SCH ×2 (08:40→19:32)
[2017-03-02] MEDS: risperiDONE 0.5 MG TABLET. PO SCH ×3 (08:40→16:59)
[2017-03-02] MEDS: NAPROXEN 500 MG TABLET PO SCH ×2 (08:40→19:33)
[2017-03-02] MEDS: DOCUSATE SODIUM 100 MG CAPSULE PO SCH ×2 (08:40→19:32)
[2017-03-02] MEDS: POLYETHYLENE GLYCOL 3350 17 GM PACKET. PO SCH (08:40)
[2017-03-02] MEDS: traZODone 50 MG TABLET. PO SCH ×3 (08:40→16:59)
[2017-03-02] MEDS: ENOXAPARIN 40 MG/0.4 ML DISP.SYRIN. SQ SCH (08:42)
[2017-03-02] MEDS: LORazepam 0.5 MG TABLET PO PRN ×2 (08:49→19:34)
--- NOTE | 2017-03-02 09:24 | PN ---
DATE: 02/28/2017 PSYCHIATRIC PROGRESS NOTE This is a late entry for 02/28/2017, covers the elements not covered in my initial note of 02/28/2017. I met with the patient in the evening of 02/28/2017. Per nursing report, the patient slept reasonably well the previous evening, 8-1/4 hours. She continues to be extremely labile, yelling, repetitive obsessive, easily agitated. Tegretol level 6.4 on current dosage of carbamazepine 200 mg at bedtime. REVIEW OF SYSTEMS: Ambulation impaired, in a Broda chair. She eats ____ for her meals often. No CV, , pulmonary, eye, ENT system symptoms on review. Reliability poor. MENTAL STATUS EXAM: Oriented to herself. Insight, judgment, recent and remote memory, attention, concentration, fund of knowledge poor, consistent with her diagnoses. IMPRESSION: Major neurocognitive disorder, Alzheimer, vascular with depression, delusion and behavioral disturbance; anxiety disorder, unspecified; bipolar 1 disorder, mixed with psychotic features, obsessive compulsive disorder. Rest of diagnoses unchanged. PLAN: Increase trazodone from 12.5 mg 4 times a day to 25 mg 4 times a day. Increase Tegretol to 150 mg twice a day from current dosage 200 mg at bedtime. Check CBC, CMP, Tegretol level in 3 days. May also consider lithium for her bipolar disorder. Continue Risperdal 0.5 mg 3 times a day, Ativan p.r.n., Remeron 15 mg at bedtime, Zyprexa p.r.n., Luvox is 100 mg p.o. at bedtime. We will increase to 150 mg p.o. at bedtime for her ongoing obsessive, repetitive yelling behaviors. Reviewed drug interactions, risk/benefit ratio favors no further change. The patient's response to treatment from a psychiatric standpoint has been very challenging. We have made multiple medication changes, considering the risk/benefit ratio and despite this, her improvement has been limited so far. MAN Aden BILLS MD DR: [email or web address]/meli JOB#: [id number] / [id number]
[2017-03-02 16:30] VITALS: BP 145/76
[2017-03-02] MEDS: ATORVASTATIN CALCIUM 20 MG TABLET PO SCH (19:31)
[2017-03-02] MEDS: traZODone 100 MG TABLET. PO PRN ×2 (19:31→23:41)
[2017-03-02] MEDS: MIRTAZAPINE 15 MG TABLET PO SCH (19:33)
[2017-03-02] MEDS: LITHIUM CARBONATE 300 MG TABLET PO SCH (19:33)
--- NOTE | 2017-03-02 20:40 | PDOC ---
Exam Jeanmarie Demential Exam: Jeanmarie Note: Please also refer to the separate dictated note~for this date of service dictated separately.~Patient seen individually. Discussed the patient with Nursing staff reviewed the chart.~Reviewed interim history and current functioning. Reviewed vital signs,~Labs/ Radiology~and current medications noted below. Continue current treatment with the changes noted in the dictated addendum note Assessment: Vital Signs: Vital Signs Date Time Temp Pulse Resp B/P (MAP) Pulse Ox O2 Delivery O2 Flow Rate FiO2 03/02/17 16:30 98.4 81 20 145/76 (99) 95 02/27/17 16:13 Room Air I&O Intake and Output 03/03/17 07:00 Intake Total 960 ml Balance 960 ml Intake Oral 960 ml Current Medications: Meds: Current Medications Lorazepam (Ativan) 0.5 mg 1X ONCE PO Last administered on 02/01/17 19:14; Start 02/01/17 at 19:15; Stop 02/01/17 at 19:16; Status DC Ceftriaxone Sodium (Rocephin Im) 1 gm 1X ONCE IM Last administered on 20:45; Start 02/01/17 at 20:30; Stop 02/01/17 at 20:31; Status DC Acetaminophen (Tylenol) 650 mg PRN Q6HRS PRN PO MILD PAIN / TEMP Last administered on 03/01/17 07:49; Start 02/01/17 at 23:15 Multi-Ingredient Ointment (Analgesic [place]) 1 rosita PRN QID PRN TP MUSCLE PAIN; Start 02/01/17 at 23:15 Al Hydroxide/Mg Hydroxide (Mylanta Plus Xs) 15 ml PRN AFTMEALHC PRN PO DYSPEPSIA; Start 02/01/17 at 23:15 Magnesium Hydroxide (Milk Of Magnesia) 2,400 mg PRN QHS PRN PO CONSTIPATION Last administered on 02/13/17 02:05; Start 02/01/17 at 23:15 Olanzapine (ZyPREXA) 5 mg HS PO Last administered on 02/13/17 19:31; Start at 21:00; Stop 02/14/17 at 18:51; Status DC Quetiapine Fumarate (SEROquel) 25 mg BID PO Last administered on 02/08/17 08: 42; Start 02/02/17 at 09:00; Stop 02/08/17 at 19:16; Status DC Sertraline HCl (Zoloft) 100 mg DAILY PO Last administered on 02/06/17 08:01; Start 02/02/17 at 09:00; Stop 02/06/17 at 18:56; Status DC Olanzapine (ZyPREXA) 5 mg 1X ONCE PO Last administered on 02/02/17 00:27; Start 02/02/17 at 00:30; Stop 02/02/17 at 00:31; Status DC Alprazolam (Xanax) 0.5 mg BID PO Last administered on 02/13/17 11:42; Start at 09:00; Stop 02/13/17 at 18:35; Status DC Lorazepam (Ativan) 0.5 mg PRN Q4HRS PRN PO ANXIETY / AGITATION Last administered on 02/02/17 14:57; Start 02/02/17 at 00:15; Stop 02/02/17 at 15:59 ; Status DC Levothyroxine Sodium (Synthroid) 112 mcg DAILY06 PO Last administered on 05:55; Start 02/02/17 at 10:00 Naproxen (Naprosyn) 500 mg BID PO Last administered on 03/02/17 19:33; Start 02/02/17 at 09:00 Atorvastatin Calcium (Lipitor) 40 mg QHS PO Last administered on 03/02/17 19: 31; Start 02/02/17 at 21:00 Mirtazapine (Remeron) 7.5 mg QHS PO Last administered on 02/20/17 23:08; Start 02/02/17 at 21:00; Stop 02/21/17 at 19:38; Status DC Olanzapine (ZyPREXA ZYDIS) 2.5 mg PRN Q2HR PRN PO PSYCHOSIS Last administered on 03/01/17 19:37; Start 02/02/17 at 15:45 Alprazolam (Xanax) 0.25 mg PRN Q2HR PRN PO ANXIETY / AGITATION Last administered on 02/13/17 16:33; Start 02/02/17 at 15:45; Stop 02/13/17 at 18:35 ; Status DC Docusate Sodium (Colace) 100 mg BID PO Last administered on 03/02/17 19:32; Start 02/02/17 at 21:00 Polyethylene Glycol (miraLAX) 17 gm DAILY PO Last administered on 03/02/17 08 :40; Start 02/03/17 at 09:00 Vitamin D (Vitamin D3) 50,000 unit WEEKLY PO Last administered on 02/24/17 10: 12; Start 02/10/17 at 09:00 Divalproex Sodium (Depakote Sprinkles) 125 mg TID@0900,1300,1700 PO Last administered on 02/06/17 16:46; Start 02/04/17 at 09:00; Stop 02/06/17 at 18:56 ; Status DC Divalproex Sodium (Depakote Sprinkles) 250 mg TID@0900,1300,1700 PO Last administered on 02/09/17 09:13; Start 02/07/17 at 09:00; Stop 02/09/17 at 13:03 ; Status DC Fluvoxamine Maleate (Luvox) 50 mg HS PO Last administered on 02/13/17 19:32; Start 02/06/17 at 21:00; Stop 02/14/17 at 18:51; Status DC Quetiapine Fumarate (SEROquel) 25 mg TID PO Last administered on 02/09/17 09: 16; Start 02/09/17 at 09:00; Stop 02/09/17 at 13:30; Status DC Divalproex Sodium (Depakote Sprinkles) 375 mg TID@0900,1300,1700 PO Last administered on 02/16/17 08:01; Start 02/09/17 at 13:00; Stop 02/16/17 at 19:13 ; Status DC Quetiapine Fumarate (SEROquel) 37.5 mg TID PO Last administered on 02/12/17 12 :55; Start 02/09/17 at 14:00; Stop 02/12/17 at 17:56; Status DC Olanzapine (ZyPREXA) 5 mg 1X ONCE PO Last administered on 02/12/17 11:57; Start 02/12/17 at 12:00; Stop 02/12/17 at 12:01; Status DC Quetiapine Fumarate (SEROquel) 50 mg TID PO Last administered on 02/19/17 13: 43; Start 02/12/17 at 21:00; Stop 02/19/17 at 18:29; Status DC Lorazepam (Ativan) 0.5 mg PRN Q2HR PRN PO ANXIETY / AGITATION Last administered on 03/02/17 19:34; Start 02/13/17 at 18:45 Lorazepam (Ativan) 0.5 mg BID PO Last administered on 02/16/17 08:04; Start at 21:00; Stop 02/17/17 at 17:37; Status DC Fluvoxamine Maleate (Luvox) 75 mg HS PO Last administered on 02/15/17 19:11; Start 02/14/17 at 21:00; Stop 02/16/17 at 22:01; Status DC Trazodone HCl (Desyrel) 12.5 mg TID PO Last administered on 02/14/17 19:39; Start 02/14/17 at 19:00; Stop 02/14/17 at 21:12; Status DC Trazodone HCl (Desyrel) 12.5 mg TIDWMEALS PO Last administered on 02/19/17 07: 57; Start 02/15/17 at 08:00; Stop 02/19/17 at 09:00; Status DC Fluvoxamine Maleate (Luvox) 100 mg HS PO Last administered on 02/27/17 19:14; Start 02/16/17 at 21:00; Stop 02/28/17 at 18:33; Status DC Lorazepam (Ativan) 0.25 mg BID PO Last administered on 02/18/17 20:06; Start 02/17/17 at 21:00; Stop 02/18/17 at 22:00; Status DC Trazodone HCl (Desyrel) 12.5 mg QID PO Last administered on 02/28/17 16:43; Start 02/19/17 at 09:00; Stop 02/28/17 at 18:19; Status DC Risperidone (RisperDAL) 0.125 mg TID@0900,1300,1700 PO Last administered on 17:31; Start 02/20/17 at 09:00; Stop 02/20/17 at 22:50; Status DC Mirtazapine (Remeron) 15 mg QHS PO Last administered on 03/02/17 19:33; Start 02/21/17 at 21:00 Trazodone HCl (Desyrel) 50 mg PRN QHS PRN PO INSOMNIA, SEPTEMBER REPEAT X1 Last administered on 02/23/17 00:34; Start 02/20/17 at 22:45; Stop 02/23/17 at 10:59 ; Status DC Risperidone (RisperDAL) 0.25 mg TID@0900,1300,1700 PO Last administered on 02/24 17:20; Start 02/21/17 at 09:00; Stop 02/24/17 at 19:06; Status DC Trazodone HCl (Desyrel) 100 mg PRN QHS PRN PO INSOMNIA, SEPTEMBER REPEAT X1 Last administered on 03/02/17 19:31; Start 02/23/17 at 11:15 Risperidone (RisperDAL) 0.375 mg TID@0900,1300,1700 PO Last administered on 16:26; Start 02/25/17 at 09:00; Stop 02/26/17 at 18:57; Status DC Carbamazepine (TEGretol) 200 mg QHS PO Last administered on 02/27/17 19:14; Start 02/24/17 at 21:00; Stop 02/28/17 at 18:19; Status DC Enoxaparin Sodium (Lovenox) 40 mg Q24H SQ Last administered on 03/02/17 08:42 ; Start 02/25/17 at 14:00 Cefpodoxime Proxetil (Vantin) 100 mg BID PO Last administered on 03/02/17 19: 32; Start 02/25/17 at 21:00 Risperidone (RisperDAL) 0.5 mg TID@0900,1300,1700 PO Last administered on 03/02 16:59; Start 02/27/17 at 09:00 Carbamazepine (TEGretol) 150 mg BID PO Last administered on 03/02/17 19:33; Start 02/28/17 at 21:00 Trazodone HCl (Desyrel) 25 mg TID@0900,1300,1700 PO Last administered on 16:59; Start 03/01/17 at 09:00 Fluvoxamine Maleate (Luvox) 150 mg HS PO Last administered on 03/02/17 19:32 ; Start 02/28/17 at 21:00 [place] Carbonate 300 mg QHS PO Last administered on 03/02/17 19:33; Start 03/02/17 at 21:00 Active Scripts Active Reported Atorvastatin Calcium 40 Mg Tablet 40 Mg PO QHS Naproxen 500 Mg Tablet 500 Mg PO BID Lorazepam 0.5 Mg Tablet 0.5 Mg PO PRN Q4HRS PRN Seroquel (Quetiapine Fumarate) 25 Mg Tablet 25 Mg PO BID Zoloft (Sertraline Hcl) 100 Mg Tablet 100 Mg PO DAILY Levothyroxine Sodium 112 Mcg Tablet 112 Mcg PO DAILYAC Olanzapine 5 Mg Tablet 5 Mg PO HS Alprazolam 0.5 Mg Tablet 0.5 Mg PO BID Diagnosis: Problems: (1) Anxiety disorder (2) Bipolar 1 disorder, mixed, moderate (3) Dementia in Alzheimer's disease with delusions (4) Dementia in Alzheimer's disease with depression (5) Dementia, vascular, with depression (6) Dementia, vascular, with delusions (7) Impulse control disorder ELEANOR BILLS MD Mar 02, 2017 20:40
[2017-03-03] MEDS: LEVOTHYROXINE 112 MCG TABLET PO SCH (05:28)
[2017-03-03 06:20] VITALS: BP 134/86
[2017-03-03] MEDS: carBAMazepine 200 MG TABLET PO SCH (08:14)
[2017-03-03] MEDS: NAPROXEN 500 MG TABLET PO SCH ×2 (08:15→19:11)
[2017-03-03] MEDS: CHOLECALCIFEROL (VITAMIN D3) 50,000 UNIT CAPSULE PO SCH (08:15)
[2017-03-03] MEDS: traZODone 50 MG TABLET. PO SCH ×3 (08:16→17:08)
[2017-03-03] MEDS: CEFPODOXIME PROXETIL 100 MG TABLET PO SCH ×2 (08:16→19:11)
[2017-03-03] MEDS: DOCUSATE SODIUM 100 MG CAPSULE PO SCH ×2 (08:16→19:11)
[2017-03-03] MEDS: POLYETHYLENE GLYCOL 3350 17 GM PACKET. PO SCH (08:17)
[2017-03-03] MEDS: risperiDONE 0.5 MG TABLET. PO SCH ×3 (08:17→17:08)
[2017-03-03 09:21] LABS: BASO # 0.1 x10^3/uL (0.0-0.2); BASO % 1 % (0-3); EOS # 0.7 x10^3/uL (0.0-0.7); EOS % 5 % (0-3); HEMATOCRIT 39.8 % (36.0-47.0); LYMPH # 1.2 x10^3/uL (1.0-4.8); LYMPH % 8 % (24-48); MEAN CORPUSCULAR HEMOGLOBIN 30 pg (25-35); MEAN CORPUSCULAR HGB CONC 33 g/dL (31-37); MEAN CORPUSCULAR VOLUME 91 fL (79-100); MONO # 0.6 x10^3/uL (0.0-1.1); MONO % 4 % (0-9); NEUT # 11.2 x10^3uL (1.8-7.7); NEUT % 81 % (31-73); PLATELET COUNT 441 x10^3/uL (140-400); RED BLOOD COUNT 4.35 x10^6/uL (3.50-5.40); RED CELL DISTRIBUTION WIDTH 15.8 % (11.5-14.5); WHITE BLOOD COUNT 13.8 x10^3/uL (4.0-11.0)
[2017-03-03 09:37] LABS: ALBUMIN 3.4 g/dL (3.4-5.0); ALBUMIN/GLOBULIN RATIO 1.1 (1.0-1.7); CALCIUM 8.7 mg/dL (8.5-10.1); CREATININE 0.6 mg/dL (0.6-1.0); GFR 99.7; MAGNESIUM 2.1 mg/dL (1.8-2.4); POTASSIUM 3.8 mmol/L (3.5-5.1); TOTAL BILIRUBIN 0.3 mg/dL (0.2-1.0); TOTAL PROTEIN 6.5 g/dL (6.4-8.2)
[2017-03-03] MEDS: LORazepam 0.5 MG TABLET PO PRN ×2 (10:09→19:13)
[2017-03-03 10:24] LABS: % BANDS 3 % (0-9); % EOS 2 % (0-5); % LYMPHS 11 % (24-48); % METAS 1 % (0-0); % MONOS 3 % (0-10); % SEGS 80 % (35-66); PLT ESTIMATE INCREASED (ADEQUATE)
[2017-03-03] MEDS: ENOXAPARIN 40 MG/0.4 ML DISP.SYRIN. SQ SCH (13:24)
[2017-03-03 16:38] VITALS: BP 131/70
[2017-03-03] MEDS: ATORVASTATIN CALCIUM 20 MG TABLET PO SCH (19:10)
[2017-03-03] MEDS: MIRTAZAPINE 15 MG TABLET PO SCH (19:11)
[2017-03-03] MEDS: LITHIUM CARBONATE 300 MG TABLET PO SCH (19:11)
[2017-03-03] MEDS: traZODone 100 MG TABLET. PO PRN ×2 (19:13→21:28)
--- NOTE | 2017-03-03 20:47 | PDOC ---
Exam Jeanmarie Demential Exam: Jeanmarie Note: Please also refer to the separate dictated note~for this date of service dictated separately.~Patient seen individually. Discussed the patient with Nursing staff reviewed the chart.~Reviewed interim history and current functioning. Reviewed vital signs,~Labs/ Radiology~and current medications noted below. Continue current treatment with the changes noted in the dictated addendum note Assessment: Vital Signs: Vital Signs Date Time Temp Pulse Resp B/P (MAP) Pulse Ox O2 Delivery O2 Flow Rate FiO2 03/03/17 16:38 98.2 85 20 131/70 (90) 98 02/27/17 16:13 Room Air I&O Intake and Output 03/04/17 07:00 Intake Total 1320 ml Balance 1320 ml Intake Oral 1320 ml # Voids 1 Labs: Laboratory Tests Test 03/03/17 09:09 White Blood Count 13.8 x10^3/uL (4.0-11.0) H Red Blood Count 4.35 x10^6/uL (3.50-5.40) Hemoglobin 13.0 g/dL (12.0-15.5) Hematocrit 39.8 % (36.0-47.0) Mean Corpuscular Volume 91 fL (79-100) Mean Corpuscular Hemoglobin 30 pg (25-35) Mean Corpuscular Hemoglobin Concent 33 g/dL (31-37) Red Cell Distribution Width 15.8 % (11.5-14.5) H Platelet Count 441 x10^3/uL (140-400) H Neutrophils (%) (Auto) 81 % (31-73) H Lymphocytes (%) (Auto) 8 % (24-48) L Monocytes (%) (Auto) 4 % (0-9) Eosinophils (%) (Auto) 5 % (0-3) H Basophils (%) (Auto) 1 % (0-3) Neutrophils # (Auto) 11.2 x10^3uL (1.8-7.7) H Lymphocytes # (Auto) 1.2 x10^3/uL (1.0-4.8) Monocytes # (Auto) 0.6 x10^3/uL (0.0-1.1) Eosinophils # (Auto) 0.7 x10^3/uL (0.0-0.7) Basophils # (Auto) 0.1 x10^3/uL (0.0-0.2) Segmented Neutrophils % 80 % (35-66) H Band Neutrophils % 3 % (0-9) Lymphocytes % 11 % (24-48) L Monocytes % 3 % (0-10) Eosinophils % 2 % (0-5) Metamyelocytes % 1 % (0-0) H Platelet Estimate Increased (ADEQUATE) Large Platelets Occ Sodium Level 144 mmol/L (136-145) Potassium Level 3.8 mmol/L (3.5-5.1) Chloride Level 106 mmol/L (98-107) Carbon Dioxide Level 30 mmol/L (21-32) Anion Gap 8 (6-14) Blood Urea Nitrogen 21 mg/dL (7-20) H Creatinine 0.6 mg/dL (0.6-1.0) Estimated GFR (Cockcroft-Gault) 99.7 BUN/Creatinine Ratio 35 (6-20) H Glucose Level 147 mg/dL (70-99) H Calcium Level 8.7 mg/dL (8.5-10.1) Magnesium Level 2.1 mg/dL (1.8-2.4) Total Bilirubin 0.3 mg/dL (0.2-1.0) Aspartate Amino Transferase (AST) 42 U/L (15-37) H Alanine Aminotransferase (ALT) 86 U/L (14-59) H Alkaline Phosphatase 106 U/L (46-116) Total Protein 6.5 g/dL (6.4-8.2) Albumin 3.4 g/dL (3.4-5.0) Albumin/Globulin Ratio 1.1 (1.0-1.7) Carbamazepine (Tegretol) Level 7.0 mcg/mL (4.0-12.0) Carbamazepine Last Dose Date 03/02/17 Carbamazepine Last Dose Time 2100 Current Medications: Meds: Current Medications Lorazepam (Ativan) 0.5 mg 1X ONCE PO Last administered on 02/01/17 19:14; Start 02/01/17 at 19:15; Stop 02/01/17 at 19:16; Status DC Ceftriaxone Sodium (Rocephin Im) 1 gm 1X ONCE IM Last administered on 20:45; Start 02/01/17 at 20:30; Stop 02/01/17 at 20:31; Status DC Acetaminophen (Tylenol) 650 mg PRN Q6HRS PRN PO MILD PAIN / TEMP Last administered on 03/01/17 07:49; Start 02/01/17 at 23:15 Multi-Ingredient Ointment (Analgesic [place]) 1 rosita PRN QID PRN TP MUSCLE PAIN; Start 02/01/17 at 23:15 Al Hydroxide/Mg Hydroxide (Mylanta Plus Xs) 15 ml PRN AFTMEALHC PRN PO DYSPEPSIA; Start 02/01/17 at 23:15 Magnesium Hydroxide (Milk Of Magnesia) 2,400 mg PRN QHS PRN PO CONSTIPATION Last administered on 02/13/17 02:05; Start 02/01/17 at 23:15 Olanzapine (ZyPREXA) 5 mg HS PO Last administered on 02/13/17 19:31; Start at 21:00; Stop 02/14/17 at 18:51; Status DC Quetiapine Fumarate (SEROquel) 25 mg BID PO Last administered on 02/08/17 08: 42; Start 02/02/17 at 09:00; Stop 02/08/17 at 19:16; Status DC Sertraline HCl (Zoloft) 100 mg DAILY PO Last administered on 02/06/17 08:01; Start 02/02/17 at 09:00; Stop 02/06/17 at 18:56; Status DC Olanzapine (ZyPREXA) 5 mg 1X ONCE PO Last administered on 02/02/17 00:27; Start 02/02/17 at 00:30; Stop 02/02/17 at 00:31; Status DC Alprazolam (Xanax) 0.5 mg BID PO Last administered on 02/13/17 11:42; Start at 09:00; Stop 02/13/17 at 18:35; Status DC Lorazepam (Ativan) 0.5 mg PRN Q4HRS PRN PO ANXIETY / AGITATION Last administered on 02/02/17 14:57; Start 02/02/17 at 00:15; Stop 02/02/17 at 15:59 ; Status DC Levothyroxine Sodium (Synthroid) 112 mcg DAILY06 PO Last administered on 05:28; Start 02/02/17 at 10:00 Naproxen (Naprosyn) 500 mg BID PO Last administered on 03/03/17 19:11; Start 02/02/17 at 09:00 Atorvastatin Calcium (Lipitor) 40 mg QHS PO Last administered on 03/03/17 19: 10; Start 02/02/17 at 21:00 Mirtazapine (Remeron) 7.5 mg QHS PO Last administered on 02/20/17 23:08; Start 02/02/17 at 21:00; Stop 02/21/17 at 19:38; Status DC Olanzapine (ZyPREXA ZYDIS) 2.5 mg PRN Q2HR PRN PO PSYCHOSIS Last administered on 03/03/17 13:24; Start 02/02/17 at 15:45 Alprazolam (Xanax) 0.25 mg PRN Q2HR PRN PO ANXIETY / AGITATION Last administered on 02/13/17 16:33; Start 02/02/17 at 15:45; Stop 02/13/17 at 18:35 ; Status DC Docusate Sodium (Colace) 100 mg BID PO Last administered on 03/03/17 19:11; Start 02/02/17 at 21:00 Polyethylene Glycol (miraLAX) 17 gm DAILY PO Last administered on 03/03/17 08 :17; Start 02/03/17 at 09:00 Vitamin D (Vitamin D3) 50,000 unit WEEKLY PO Last administered on 03/03/17 08 :15; Start 02/10/17 at 09:00 Divalproex Sodium (Depakote Sprinkles) 125 mg TID@0900,1300,1700 PO Last administered on 02/06/17 16:46; Start 02/04/17 at 09:00; Stop 02/06/17 at 18:56 ; Status DC Divalproex Sodium (Depakote Sprinkles) 250 mg TID@0900,1300,1700 PO Last administered on 02/09/17 09:13; Start 02/07/17 at 09:00; Stop 02/09/17 at 13:03 ; Status DC Fluvoxamine Maleate (Luvox) 50 mg HS PO Last administered on 02/13/17 19:32; Start 02/06/17 at 21:00; Stop 02/14/17 at 18:51; Status DC Quetiapine Fumarate (SEROquel) 25 mg TID PO Last administered on 02/09/17 09: 16; Start 02/09/17 at 09:00; Stop 02/09/17 at 13:30; Status DC Divalproex Sodium (Depakote Sprinkles) 375 mg TID@0900,1300,1700 PO Last administered on 02/16/17 08:01; Start 02/09/17 at 13:00; Stop 02/16/17 at 19:13 ; Status DC Quetiapine Fumarate (SEROquel) 37.5 mg TID PO Last administered on 02/12/17 12 :55; Start 02/09/17 at 14:00; Stop 02/12/17 at 17:56; Status DC Olanzapine (ZyPREXA) 5 mg 1X ONCE PO Last administered on 02/12/17 11:57; Start 02/12/17 at 12:00; Stop 02/12/17 at 12:01; Status DC Quetiapine Fumarate (SEROquel) 50 mg TID PO Last administered on 02/19/17 13: 43; Start 02/12/17 at 21:00; Stop 02/19/17 at 18:29; Status DC Lorazepam (Ativan) 0.5 mg PRN Q2HR PRN PO ANXIETY / AGITATION Last administered on 03/03/17 19:13; Start 02/13/17 at 18:45 Lorazepam (Ativan) 0.5 mg BID PO Last administered on 02/16/17 08:04; Start at 21:00; Stop 02/17/17 at 17:37; Status DC Fluvoxamine Maleate (Luvox) 75 mg HS PO Last administered on 02/15/17 19:11; Start 02/14/17 at 21:00; Stop 02/16/17 at 22:01; Status DC Trazodone HCl (Desyrel) 12.5 mg TID PO Last administered on 02/14/17 19:39; Start 02/14/17 at 19:00; Stop 02/14/17 at 21:12; Status DC Trazodone HCl (Desyrel) 12.5 mg TIDWMEALS PO Last administered on 02/19/17 07: 57; Start 02/15/17 at 08:00; Stop 02/19/17 at 09:00; Status DC Fluvoxamine Maleate (Luvox) 100 mg HS PO Last administered on 02/27/17 19:14; Start 02/16/17 at 21:00; Stop 02/28/17 at 18:33; Status DC Lorazepam (Ativan) 0.25 mg BID PO Last administered on 02/18/17 20:06; Start 02/17/17 at 21:00; Stop 02/18/17 at 22:00; Status DC Trazodone HCl (Desyrel) 12.5 mg QID PO Last administered on 02/28/17 16:43; Start 02/19/17 at 09:00; Stop 02/28/17 at 18:19; Status DC Risperidone (RisperDAL) 0.125 mg TID@0900,1300,1700 PO Last administered on 17:31; Start 02/20/17 at 09:00; Stop 02/20/17 at 22:50; Status DC Mirtazapine (Remeron) 15 mg QHS PO Last administered on 03/03/17 19:11; Start 02/21/17 at 21:00 Trazodone HCl (Desyrel) 50 mg PRN QHS PRN PO INSOMNIA, MAY REPEAT X1 Last administered on 02/23/17 00:34; Start 02/20/17 at 22:45; Stop 02/23/17 at 10:59 ; Status DC Risperidone (RisperDAL) 0.25 mg TID@0900,1300,1700 PO Last administered on 02/24 17:20; Start 02/21/17 at 09:00; Stop 02/24/17 at 19:06; Status DC Trazodone HCl (Desyrel) 100 mg PRN QHS PRN PO INSOMNIA, MAY REPEAT X1 Last administered on 03/03/17 19:13; Start 02/23/17 at 11:15 Risperidone (RisperDAL) 0.375 mg TID@0900,1300,1700 PO Last administered on 16:26; Start 02/25/17 at 09:00; Stop 02/26/17 at 18:57; Status DC Carbamazepine (TEGretol) 200 mg QHS PO Last administered on 02/27/17 19:14; Start 02/24/17 at 21:00; Stop 02/28/17 at 18:19; Status DC Enoxaparin Sodium (Lovenox) 40 mg Q24H SQ Last administered on 03/03/17 13:24 ; Start 02/25/17 at 14:00 Cefpodoxime Proxetil (Vantin) 100 mg BID PO Last administered on 03/03/17 19: 11; Start 02/25/17 at 21:00 Risperidone (RisperDAL) 0.5 mg TID@0900,1300,1700 PO Last administered on 03/03 17:08; Start 02/27/17 at 09:00 Carbamazepine (TEGretol) 150 mg BID PO Last administered on 03/03/17 08:14; Start 02/28/17 at 21:00; Stop 03/03/17 at 18:20; Status DC Trazodone HCl (Desyrel) 25 mg TID@0900,1300,1700 PO Last administered on 17:08; Start 03/01/17 at 09:00 Fluvoxamine Maleate (Luvox) 150 mg HS PO Last administered on 03/03/17 19:11 ; Start 02/28/17 at 21:00 [place] Carbonate 300 mg QHS PO Last administered on 03/03/17 19:11; Start 03/02/17 at 21:00 Influenza Virus Vaccine Quadrival (Fluarix Quad [id number] Syringe) 0.5 ml ONCE ONCE VAX IM ; Start 03/04/17 at 09:00; Stop 03/04/17 at 09:01 Active Scripts Active Reported Atorvastatin Calcium 40 Mg Tablet 40 Mg PO QHS Naproxen 500 Mg Tablet 500 Mg PO BID Lorazepam 0.5 Mg Tablet 0.5 Mg PO PRN Q4HRS PRN Seroquel (Quetiapine Fumarate) 25 Mg Tablet 25 Mg PO BID Zoloft (Sertraline Hcl) 100 Mg Tablet 100 Mg PO DAILY Levothyroxine Sodium 112 Mcg Tablet 112 Mcg PO DAILYAC Olanzapine 5 Mg Tablet 5 Mg PO HS Alprazolam 0.5 Mg Tablet 0.5 Mg PO BID Diagnosis: Problems: (1) Anxiety disorder (2) Bipolar 1 disorder, mixed, moderate (3) Dementia in Alzheimer's disease with delusions (4) Dementia in Alzheimer's disease with depression (5) Dementia, vascular, with depression (6) Dementia, vascular, with delusions (7) Impulse control disorder ELEANOR BILLS MD Mar 03, 2017 20:47
[2017-03-04] MEDS: LORazepam 0.5 MG TABLET PO PRN ×3 (03:13→22:02)
[2017-03-04] MEDS: ACETAMINOPHEN 325 MG TABLET PO PRN (03:13)
--- NOTE | 2017-03-04 03:16 | PN ---
DATE: 03/01/2017 This late entry for 03/01/2017 covers elements not covered in my initial note of 03/01/2017. SUBJECTIVE: I met with the patient evening of 03/01/2017. The patient remains quite paranoid, believes everyone is going to be killed, restless, screaming out repeatedly "all going to ." Trazodone was repeated previous evening. She slept 7-1/4 hours, awoke at 06:30 a.m., screaming, minimal improvement in her marked mood lability. I have had a lengthy discussion and we will check with the daughter and if there is a crystal clear history of bipolar disorder, we may consider adding lithium and later discontinuing the Tegretol as a mood stabilizer. REVIEW OF SYSTEMS: Ambulation impaired, in a Broda chair. No CV, , pulmonary, eye, ENT system symptoms on review. Reliability poor. MENTAL STATUS EXAM: Oriented to herself. Insight, judgment, recent and remote memory, attention, concentration, fund of knowledge poor, consistent with her diagnosis mentioned in my initial note. LABORATORY DATA: Reviewed. IMPRESSION: Unchanged from initial note. PLAN: Continue current psychotropics, get information from family. Consider lithium as a mood stabilizer. Reviewed drug interactions. Risks and benefit ratio favors no further change. MAN Aden BILLS MD DR: [email or web address]/meli JOB#: [id number] / [id number]
[2017-03-04 06:31] VITALS: BP 136/79
[2017-03-04] MEDS ORDERED: FLU VACC QS2017-18 (36MOS+)/PF 0.5 ML SYRINGE. VAX IM ONE (09:00)
[2017-03-04] MEDS: LEVOTHYROXINE 112 MCG TABLET PO SCH (09:52)
[2017-03-04] MEDS: risperiDONE 0.5 MG TABLET. PO SCH ×3 (09:53→17:23)
[2017-03-04] MEDS: CEFPODOXIME PROXETIL 100 MG TABLET PO SCH ×2 (09:53→19:25)
[2017-03-04] MEDS: NAPROXEN 500 MG TABLET PO SCH ×2 (09:53→19:25)
[2017-03-04] MEDS: POLYETHYLENE GLYCOL 3350 17 GM PACKET. PO SCH (09:54)
[2017-03-04] MEDS: traZODone 50 MG TABLET. PO SCH ×3 (09:54→17:23)
[2017-03-04] MEDS: DOCUSATE SODIUM 100 MG CAPSULE PO SCH ×2 (09:54→19:26)
[2017-03-04] MEDS: ENOXAPARIN 40 MG/0.4 ML DISP.SYRIN. SQ SCH (14:27)
[2017-03-04 16:14] VITALS: BP 120/62
[2017-03-04] MEDS: traZODone 100 MG TABLET. PO PRN ×2 (19:26→22:02)
[2017-03-04] MEDS: LITHIUM CARBONATE 300 MG TABLET PO SCH (19:26)
[2017-03-04] MEDS: MIRTAZAPINE 15 MG TABLET PO SCH (19:26)
[2017-03-04] MEDS: ATORVASTATIN CALCIUM 20 MG TABLET PO SCH (19:26)
--- NOTE | 2017-03-04 21:51 | PDOC ---
Exam Jeanmarie Demential Exam: Jeanmarie Note: Please also refer to the separate dictated note~for this date of service dictated separately.~Patient seen individually. Discussed the patient with Nursing staff reviewed the chart.~Reviewed interim history and current functioning. Reviewed vital signs,~Labs/ Radiology~and current medications noted below. Continue current treatment with the changes noted in the dictated addendum note Assessment: Vital Signs: Vital Signs Date Time Temp Pulse Resp B/P (MAP) Pulse Ox O2 Delivery O2 Flow Rate FiO2 03/04/17 16:14 97.3 82 18 120/62 (81) 94 Room Air I&O Intake and Output 03/05/17 07:00 Intake Total 960 ml Balance 960 ml Intake Oral 960 ml # Voids 1 # Bowel Movements 1 Current Medications: Meds: Current Medications Lorazepam (Ativan) 0.5 mg 1X ONCE PO Last administered on 02/01/17 19:14; Start 02/01/17 at 19:15; Stop 02/01/17 at 19:16; Status DC Ceftriaxone Sodium (Rocephin Im) 1 gm 1X ONCE IM Last administered on 20:45; Start 02/01/17 at 20:30; Stop 02/01/17 at 20:31; Status DC Acetaminophen (Tylenol) 650 mg PRN Q6HRS PRN PO MILD PAIN / TEMP Last administered on 03/04/17 03:13; Start 02/01/17 at 23:15 Multi-Ingredient Ointment (Analgesic [place]) 1 rosita PRN QID PRN TP MUSCLE PAIN; Start 02/01/17 at 23:15 Al Hydroxide/Mg Hydroxide (Mylanta Plus Xs) 15 ml PRN AFTMEALHC PRN PO DYSPEPSIA; Start 02/01/17 at 23:15 Magnesium Hydroxide (Milk Of Magnesia) 2,400 mg PRN QHS PRN PO CONSTIPATION Last administered on 02/13/17 02:05; Start 02/01/17 at 23:15 Olanzapine (ZyPREXA) 5 mg HS PO Last administered on 02/13/17 19:31; Start at 21:00; Stop 02/14/17 at 18:51; Status DC Quetiapine Fumarate (SEROquel) 25 mg BID PO Last administered on 02/08/17 08: 42; Start 02/02/17 at 09:00; Stop 02/08/17 at 19:16; Status DC Sertraline HCl (Zoloft) 100 mg DAILY PO Last administered on 02/06/17 08:01; Start 02/02/17 at 09:00; Stop 02/06/17 at 18:56; Status DC Olanzapine (ZyPREXA) 5 mg 1X ONCE PO Last administered on 02/02/17 00:27; Start 02/02/17 at 00:30; Stop 02/02/17 at 00:31; Status DC Alprazolam (Xanax) 0.5 mg BID PO Last administered on 02/13/17 11:42; Start at 09:00; Stop 02/13/17 at 18:35; Status DC Lorazepam (Ativan) 0.5 mg PRN Q4HRS PRN PO ANXIETY / AGITATION Last administered on 02/02/17 14:57; Start 02/02/17 at 00:15; Stop 02/02/17 at 15:59 ; Status DC Levothyroxine Sodium (Synthroid) 112 mcg DAILY06 PO Last administered on 09:52; Start 02/02/17 at 10:00 Naproxen (Naprosyn) 500 mg BID PO Last administered on 03/04/17 19:25; Start 02/02/17 at 09:00 Atorvastatin Calcium (Lipitor) 40 mg QHS PO Last administered on 03/04/17 19: 26; Start 02/02/17 at 21:00 Mirtazapine (Remeron) 7.5 mg QHS PO Last administered on 02/20/17 23:08; Start 02/02/17 at 21:00; Stop 02/21/17 at 19:38; Status DC Olanzapine (ZyPREXA ZYDIS) 2.5 mg PRN Q2HR PRN PO PSYCHOSIS Last administered on 03/04/17 19:29; Start 02/02/17 at 15:45 Alprazolam (Xanax) 0.25 mg PRN Q2HR PRN PO ANXIETY / AGITATION Last administered on 02/13/17 16:33; Start 02/02/17 at 15:45; Stop 02/13/17 at 18:35 ; Status DC Docusate Sodium (Colace) 100 mg BID PO Last administered on 03/04/17 19:26; Start 02/02/17 at 21:00 Polyethylene Glycol (miraLAX) 17 gm DAILY PO Last administered on 03/04/17 09 :54; Start 02/03/17 at 09:00 Vitamin D (Vitamin D3) 50,000 unit WEEKLY PO Last administered on 03/03/17 08 :15; Start 02/10/17 at 09:00 Divalproex Sodium (Depakote Sprinkles) 125 mg TID@0900,1300,1700 PO Last administered on 02/06/17 16:46; Start 02/04/17 at 09:00; Stop 02/06/17 at 18:56 ; Status DC Divalproex Sodium (Depakote Sprinkles) 250 mg TID@0900,1300,1700 PO Last administered on 02/09/17 09:13; Start 02/07/17 at 09:00; Stop 02/09/17 at 13:03 ; Status DC Fluvoxamine Maleate (Luvox) 50 mg HS PO Last administered on 02/13/17 19:32; Start 02/06/17 at 21:00; Stop 02/14/17 at 18:51; Status DC Quetiapine Fumarate (SEROquel) 25 mg TID PO Last administered on 02/09/17 09: 16; Start 02/09/17 at 09:00; Stop 02/09/17 at 13:30; Status DC Divalproex Sodium (Depakote Sprinkles) 375 mg TID@0900,1300,1700 PO Last administered on 02/16/17 08:01; Start 02/09/17 at 13:00; Stop 02/16/17 at 19:13 ; Status DC Quetiapine Fumarate (SEROquel) 37.5 mg TID PO Last administered on 02/12/17 12 :55; Start 02/09/17 at 14:00; Stop 02/12/17 at 17:56; Status DC Olanzapine (ZyPREXA) 5 mg 1X ONCE PO Last administered on 02/12/17 11:57; Start 02/12/17 at 12:00; Stop 02/12/17 at 12:01; Status DC Quetiapine Fumarate (SEROquel) 50 mg TID PO Last administered on 02/19/17 13: 43; Start 02/12/17 at 21:00; Stop 02/19/17 at 18:29; Status DC Lorazepam (Ativan) 0.5 mg PRN Q2HR PRN PO ANXIETY / AGITATION Last administered on 03/04/17 12:12; Start 02/13/17 at 18:45 Lorazepam (Ativan) 0.5 mg BID PO Last administered on 02/16/17 08:04; Start at 21:00; Stop 02/17/17 at 17:37; Status DC Fluvoxamine Maleate (Luvox) 75 mg HS PO Last administered on 02/15/17 19:11; Start 02/14/17 at 21:00; Stop 02/16/17 at 22:01; Status DC Trazodone HCl (Desyrel) 12.5 mg TID PO Last administered on 02/14/17 19:39; Start 02/14/17 at 19:00; Stop 02/14/17 at 21:12; Status DC Trazodone HCl (Desyrel) 12.5 mg TIDWMEALS PO Last administered on 02/19/17 07: 57; Start 02/15/17 at 08:00; Stop 02/19/17 at 09:00; Status DC Fluvoxamine Maleate (Luvox) 100 mg HS PO Last administered on 02/27/17 19:14; Start 02/16/17 at 21:00; Stop 02/28/17 at 18:33; Status DC Lorazepam (Ativan) 0.25 mg BID PO Last administered on 02/18/17 20:06; Start 02/17/17 at 21:00; Stop 02/18/17 at 22:00; Status DC Trazodone HCl (Desyrel) 12.5 mg QID PO Last administered on 02/28/17 16:43; Start 02/19/17 at 09:00; Stop 02/28/17 at 18:19; Status DC Risperidone (RisperDAL) 0.125 mg TID@0900,1300,1700 PO Last administered on 17:31; Start 02/20/17 at 09:00; Stop 02/20/17 at 22:50; Status DC Mirtazapine (Remeron) 15 mg QHS PO Last administered on 03/04/17 19:26; Start 02/21/17 at 21:00 Trazodone HCl (Desyrel) 50 mg PRN QHS PRN PO INSOMNIA, MAY REPEAT X1 Last administered on 02/23/17 00:34; Start 02/20/17 at 22:45; Stop 02/23/17 at 10:59 ; Status DC Risperidone (RisperDAL) 0.25 mg TID@0900,1300,1700 PO Last administered on 02/24 17:20; Start 02/21/17 at 09:00; Stop 02/24/17 at 19:06; Status DC Trazodone HCl (Desyrel) 100 mg PRN QHS PRN PO INSOMNIA, SEPTEMBER REPEAT X1 Last administered on 03/04/17 19:26; Start 02/23/17 at 11:15 Risperidone (RisperDAL) 0.375 mg TID@0900,1300,1700 PO Last administered on 16:26; Start 02/25/17 at 09:00; Stop 02/26/17 at 18:57; Status DC Carbamazepine (TEGretol) 200 mg QHS PO Last administered on 02/27/17 19:14; Start 02/24/17 at 21:00; Stop 02/28/17 at 18:19; Status DC Enoxaparin Sodium (Lovenox) 40 mg Q24H SQ Last administered on 03/04/17 14:27 ; Start 02/25/17 at 14:00 Cefpodoxime Proxetil (Vantin) 100 mg BID PO Last administered on 03/04/17 19: 25; Start 02/25/17 at 21:00 Risperidone (RisperDAL) 0.5 mg TID@0900,1300,1700 PO Last administered on 03/04 17:23; Start 02/27/17 at 09:00 Carbamazepine (TEGretol) 150 mg BID PO Last administered on 03/03/17 08:14; Start 02/28/17 at 21:00; Stop 03/03/17 at 18:20; Status DC Trazodone HCl (Desyrel) 25 mg TID@0900,1300,1700 PO Last administered on 17:23; Start 03/01/17 at 09:00 Fluvoxamine Maleate (Luvox) 150 mg HS PO Last administered on 03/04/17 19:25 ; Start 02/28/17 at 21:00 [place] Carbonate 300 mg QHS PO Last administered on 03/04/17 19:26; Start 03/02/17 at 21:00 Influenza Virus Vaccine Quadrival (Fluarix Quad [id number] Syringe) 0.5 ml ONCE ONCE VAX IM Last administered on 03/04/17 09:57; Start 03/04/17 at 09:00; Stop 03/04/17 at 09:01; Status DC Active Scripts Active Reported Atorvastatin Calcium 40 Mg Tablet 40 Mg PO QHS Naproxen 500 Mg Tablet 500 Mg PO BID Lorazepam 0.5 Mg Tablet 0.5 Mg PO PRN Q4HRS PRN Seroquel (Quetiapine Fumarate) 25 Mg Tablet 25 Mg PO BID Zoloft (Sertraline Hcl) 100 Mg Tablet 100 Mg PO DAILY Levothyroxine Sodium 112 Mcg Tablet 112 Mcg PO DAILYAC Olanzapine 5 Mg Tablet 5 Mg PO HS Alprazolam 0.5 Mg Tablet 0.5 Mg PO BID Diagnosis: Problems: (1) Anxiety disorder (2) Bipolar 1 disorder, mixed, moderate (3) Dementia in Alzheimer's disease with delusions (4) Dementia in Alzheimer's disease with depression (5) Dementia, vascular, with depression (6) Dementia, vascular, with delusions (7) Impulse control disorder ELEANOR BILLS MD Mar 04, 2017 21:51
[2017-03-05 06:15] VITALS: BP 112/66
[2017-03-05] MEDS: LEVOTHYROXINE 112 MCG TABLET PO SCH (06:44)
[2017-03-05 08:25] LABS: BASO # 0.3 x10^3/uL (0.0-0.2); BASO % 3 % (0-3); EOS # 0.8 x10^3/uL (0.0-0.7); EOS % 8 % (0-3); HEMATOCRIT 36.9 % (36.0-47.0); HEMOGLOBIN 12.6 g/dL (12.0-15.5); LYMPH # 1.2 x10^3/uL (1.0-4.8); LYMPH % 13 % (24-48); MEAN CORPUSCULAR HEMOGLOBIN 31 pg (25-35); MEAN CORPUSCULAR HGB CONC 34 g/dL (31-37); MEAN CORPUSCULAR VOLUME 92 fL (79-100); MONO # 0.7 x10^3/uL (0.0-1.1); MONO % 8 % (0-9); NEUT # 6.8 x10^3uL (1.8-7.7); NEUT % 69 % (31-73); PLATELET COUNT 407 x10^3/uL (140-400); RED BLOOD COUNT 4.03 x10^6/uL (3.50-5.40); RED CELL DISTRIBUTION WIDTH 15.5 % (11.5-14.5); WHITE BLOOD COUNT 9.8 x10^3/uL (4.0-11.0)
[2017-03-05 08:35] LABS: ALBUMIN 3.2 g/dL (3.4-5.0); ALBUMIN/GLOBULIN RATIO 1.1 (1.0-1.7); CALCIUM 8.7 mg/dL (8.5-10.1); CREATININE 0.8 mg/dL (0.6-1.0); GFR 71.5; POTASSIUM 4.7 mmol/L (3.5-5.1); TOTAL BILIRUBIN 0.3 mg/dL (0.2-1.0); TOTAL PROTEIN 6.2 g/dL (6.4-8.2)
[2017-03-05] MEDS: POLYETHYLENE GLYCOL 3350 17 GM PACKET. PO SCH (08:37)
[2017-03-05] MEDS: DOCUSATE SODIUM 100 MG CAPSULE PO SCH ×2 (08:37→19:25)
[2017-03-05] MEDS: NAPROXEN 500 MG TABLET PO SCH ×2 (08:37→19:25)
[2017-03-05] MEDS: traZODone 50 MG TABLET. PO SCH ×3 (08:37→18:08)
[2017-03-05] MEDS: CEFPODOXIME PROXETIL 100 MG TABLET PO SCH ×2 (08:38→19:27)
[2017-03-05] MEDS: risperiDONE 0.5 MG TABLET. PO SCH ×3 (08:38→18:08)
[2017-03-05 13:18] LABS: LI 0.5 mmol/L (0.6-1.2)
[2017-03-05] MEDS: ENOXAPARIN 40 MG/0.4 ML DISP.SYRIN. SQ SCH (13:40)
[2017-03-05 16:18] VITALS: BP 157/64
[2017-03-05] MEDS: traZODone 100 MG TABLET. PO PRN ×2 (19:25→23:03)
[2017-03-05] MEDS: MIRTAZAPINE 15 MG TABLET PO SCH (19:25)
[2017-03-05] MEDS: ATORVASTATIN CALCIUM 20 MG TABLET PO SCH (19:27)
[2017-03-05] MEDS: LITHIUM CARBONATE 300 MG TABLET PO SCH (19:27)
--- NOTE | 2017-03-05 20:51 | PDOC ---
Exam Jeanmarie Demential Exam: Jeanmarie Note: Please also refer to the separate dictated note~for this date of service dictated separately.~Patient seen individually. Discussed the patient with Nursing staff reviewed the chart.~Reviewed interim history and current functioning. Reviewed vital signs,~Labs/ Radiology~and current medications noted below. Continue current treatment with the changes noted in the dictated addendum note Assessment: Vital Signs: Vital Signs Date Time Temp Pulse Resp B/P (MAP) Pulse Ox O2 Delivery O2 Flow Rate FiO2 03/05/17 16:18 97.1 80 20 157/64 (95) 96 Room Air I&O Intake and Output 03/06/17 07:00 Intake Total 340 ml Balance 340 ml Intake Oral 340 ml # Bowel Movements 1 Labs: Laboratory Tests Test 03/05/17 08:05 White Blood Count 9.8 x10^3/uL (4.0-11.0) Red Blood Count 4.03 x10^6/uL (3.50-5.40) Hemoglobin 12.6 g/dL (12.0-15.5) Hematocrit 36.9 % (36.0-47.0) Mean Corpuscular Volume 92 fL (79-100) Mean Corpuscular Hemoglobin 31 pg (25-35) Mean Corpuscular Hemoglobin Concent 34 g/dL (31-37) Red Cell Distribution Width 15.5 % (11.5-14.5) H Platelet Count 407 x10^3/uL (140-400) H Neutrophils (%) (Auto) 69 % (31-73) Lymphocytes (%) (Auto) 13 % (24-48) L Monocytes (%) (Auto) 8 % (0-9) Eosinophils (%) (Auto) 8 % (0-3) H Basophils (%) (Auto) 3 % (0-3) Neutrophils # (Auto) 6.8 x10^3uL (1.8-7.7) Lymphocytes # (Auto) 1.2 x10^3/uL (1.0-4.8) Monocytes # (Auto) 0.7 x10^3/uL (0.0-1.1) Eosinophils # (Auto) 0.8 x10^3/uL (0.0-0.7) H Basophils # (Auto) 0.3 x10^3/uL (0.0-0.2) H Sodium Level 139 mmol/L (136-145) Potassium Level 4.7 mmol/L (3.5-5.1) Chloride Level 105 mmol/L (98-107) Carbon Dioxide Level 29 mmol/L (21-32) Anion Gap 5 (6-14) L Blood Urea Nitrogen 24 mg/dL (7-20) H Creatinine 0.8 mg/dL (0.6-1.0) Estimated GFR (Cockcroft-Gault) 71.5 BUN/Creatinine Ratio 30 (6-20) H Glucose Level 102 mg/dL (70-99) H Calcium Level 8.7 mg/dL (8.5-10.1) Total Bilirubin 0.3 mg/dL (0.2-1.0) Aspartate Amino Transferase (AST) 70 U/L (15-37) H Alanine Aminotransferase (ALT) 134 U/L (14-59) H Alkaline Phosphatase 140 U/L (46-116) H Total Protein 6.2 g/dL (6.4-8.2) L Albumin 3.2 g/dL (3.4-5.0) L Albumin/Globulin Ratio 1.1 (1.0-1.7) [place] Level 0.5 mmol/L (0.6-1.2) L [place] Last Dose Date 03/04/17 [place] Last Dose Time 2100 Current Medications: Meds: Current Medications Lorazepam (Ativan) 0.5 mg 1X ONCE PO Last administered on 02/01/17 19:14; Start 02/01/17 at 19:15; Stop 02/01/17 at 19:16; Status DC Ceftriaxone Sodium (Rocephin Im) 1 gm 1X ONCE IM Last administered on 20:45; Start 02/01/17 at 20:30; Stop 02/01/17 at 20:31; Status DC Acetaminophen (Tylenol) 650 mg PRN Q6HRS PRN PO MILD PAIN / TEMP Last administered on 03/04/17 03:13; Start 02/01/17 at 23:15 Multi-Ingredient Ointment (Analgesic [place]) 1 rosita PRN QID PRN TP MUSCLE PAIN; Start 02/01/17 at 23:15 Al Hydroxide/Mg Hydroxide (Mylanta Plus Xs) 15 ml PRN AFTMEALHC PRN PO DYSPEPSIA; Start 02/01/17 at 23:15 Magnesium Hydroxide (Milk Of Magnesia) 2,400 mg PRN QHS PRN PO CONSTIPATION Last administered on 02/13/17 02:05; Start 02/01/17 at 23:15 Olanzapine (ZyPREXA) 5 mg HS PO Last administered on 02/13/17 19:31; Start at 21:00; Stop 02/14/17 at 18:51; Status DC Quetiapine Fumarate (SEROquel) 25 mg BID PO Last administered on 02/08/17 08: 42; Start 02/02/17 at 09:00; Stop 02/08/17 at 19:16; Status DC Sertraline HCl (Zoloft) 100 mg DAILY PO Last administered on 02/06/17 08:01; Start 02/02/17 at 09:00; Stop 02/06/17 at 18:56; Status DC Olanzapine (ZyPREXA) 5 mg 1X ONCE PO Last administered on 02/02/17 00:27; Start 02/02/17 at 00:30; Stop 02/02/17 at 00:31; Status DC Alprazolam (Xanax) 0.5 mg BID PO Last administered on 02/13/17 11:42; Start at 09:00; Stop 02/13/17 at 18:35; Status DC Lorazepam (Ativan) 0.5 mg PRN Q4HRS PRN PO ANXIETY / AGITATION Last administered on 02/02/17 14:57; Start 02/02/17 at 00:15; Stop 02/02/17 at 15:59 ; Status DC Levothyroxine Sodium (Synthroid) 112 mcg DAILY06 PO Last administered on 06:44; Start 02/02/17 at 10:00 Naproxen (Naprosyn) 500 mg BID PO Last administered on 03/05/17 19:25; Start 02/02/17 at 09:00 Atorvastatin Calcium (Lipitor) 40 mg QHS PO Last administered on 03/05/17 19: 27; Start 02/02/17 at 21:00 Mirtazapine (Remeron) 7.5 mg QHS PO Last administered on 02/20/17 23:08; Start 02/02/17 at 21:00; Stop 02/21/17 at 19:38; Status DC Olanzapine (ZyPREXA ZYDIS) 2.5 mg PRN Q2HR PRN PO PSYCHOSIS Last administered on 03/05/17 19:29; Start 02/02/17 at 15:45 Alprazolam (Xanax) 0.25 mg PRN Q2HR PRN PO ANXIETY / AGITATION Last administered on 02/13/17 16:33; Start 02/02/17 at 15:45; Stop 02/13/17 at 18:35 ; Status DC Docusate Sodium (Colace) 100 mg BID PO Last administered on 03/05/17 19:25; Start 02/02/17 at 21:00 Polyethylene Glycol (miraLAX) 17 gm DAILY PO Last administered on 03/05/17 08 :37; Start 02/03/17 at 09:00 Vitamin D (Vitamin D3) 50,000 unit WEEKLY PO Last administered on 03/03/17 08 :15; Start 02/10/17 at 09:00 Divalproex Sodium (Depakote Sprinkles) 125 mg TID@0900,1300,1700 PO Last administered on 02/06/17 16:46; Start 02/04/17 at 09:00; Stop 02/06/17 at 18:56 ; Status DC Divalproex Sodium (Depakote Sprinkles) 250 mg TID@0900,1300,1700 PO Last administered on 02/09/17 09:13; Start 02/07/17 at 09:00; Stop 02/09/17 at 13:03 ; Status DC Fluvoxamine Maleate (Luvox) 50 mg HS PO Last administered on 02/13/17 19:32; Start 02/06/17 at 21:00; Stop 02/14/17 at 18:51; Status DC Quetiapine Fumarate (SEROquel) 25 mg TID PO Last administered on 02/09/17 09: 16; Start 02/09/17 at 09:00; Stop 02/09/17 at 13:30; Status DC Divalproex Sodium (Depakote Sprinkles) 375 mg TID@0900,1300,1700 PO Last administered on 02/16/17 08:01; Start 02/09/17 at 13:00; Stop 02/16/17 at 19:13 ; Status DC Quetiapine Fumarate (SEROquel) 37.5 mg TID PO Last administered on 02/12/17 12 :55; Start 02/09/17 at 14:00; Stop 02/12/17 at 17:56; Status DC Olanzapine (ZyPREXA) 5 mg 1X ONCE PO Last administered on 02/12/17 11:57; Start 02/12/17 at 12:00; Stop 02/12/17 at 12:01; Status DC Quetiapine Fumarate (SEROquel) 50 mg TID PO Last administered on 02/19/17 13: 43; Start 02/12/17 at 21:00; Stop 02/19/17 at 18:29; Status DC Lorazepam (Ativan) 0.5 mg PRN Q2HR PRN PO ANXIETY / AGITATION Last administered on 03/04/17 22:02; Start 02/13/17 at 18:45 Lorazepam (Ativan) 0.5 mg BID PO Last administered on 02/16/17 08:04; Start at 21:00; Stop 02/17/17 at 17:37; Status DC Fluvoxamine Maleate (Luvox) 75 mg HS PO Last administered on 02/15/17 19:11; Start 02/14/17 at 21:00; Stop 02/16/17 at 22:01; Status DC Trazodone HCl (Desyrel) 12.5 mg TID PO Last administered on 02/14/17 19:39; Start 02/14/17 at 19:00; Stop 02/14/17 at 21:12; Status DC Trazodone HCl (Desyrel) 12.5 mg TIDWMEALS PO Last administered on 02/19/17 07: 57; Start 02/15/17 at 08:00; Stop 02/19/17 at 09:00; Status DC Fluvoxamine Maleate (Luvox) 100 mg HS PO Last administered on 02/27/17 19:14; Start 02/16/17 at 21:00; Stop 02/28/17 at 18:33; Status DC Lorazepam (Ativan) 0.25 mg BID PO Last administered on 02/18/17 20:06; Start 02/17/17 at 21:00; Stop 02/18/17 at 22:00; Status DC Trazodone HCl (Desyrel) 12.5 mg QID PO Last administered on 02/28/17 16:43; Start 02/19/17 at 09:00; Stop 02/28/17 at 18:19; Status DC Risperidone (RisperDAL) 0.125 mg TID@0900,1300,1700 PO Last administered on 17:31; Start 02/20/17 at 09:00; Stop 02/20/17 at 22:50; Status DC Mirtazapine (Remeron) 15 mg QHS PO Last administered on 03/05/17 19:25; Start 02/21/17 at 21:00 Trazodone HCl (Desyrel) 50 mg PRN QHS PRN PO INSOMNIA, MAY REPEAT X1 Last administered on 02/23/17 00:34; Start 02/20/17 at 22:45; Stop 02/23/17 at 10:59 ; Status DC Risperidone (RisperDAL) 0.25 mg TID@0900,1300,1700 PO Last administered on 02/24 17:20; Start 02/21/17 at 09:00; Stop 02/24/17 at 19:06; Status DC Trazodone HCl (Desyrel) 100 mg PRN QHS PRN PO INSOMNIA, MAY REPEAT X1 Last administered on 03/05/17 19:25; Start 02/23/17 at 11:15 Risperidone (RisperDAL) 0.375 mg TID@0900,1300,1700 PO Last administered on 16:26; Start 02/25/17 at 09:00; Stop 02/26/17 at 18:57; Status DC Carbamazepine (TEGretol) 200 mg QHS PO Last administered on 02/27/17 19:14; Start 02/24/17 at 21:00; Stop 02/28/17 at 18:19; Status DC Enoxaparin Sodium (Lovenox) 40 mg Q24H SQ Last administered on 03/05/17 13:40 ; Start 02/25/17 at 14:00 Cefpodoxime Proxetil (Vantin) 100 mg BID PO Last administered on 03/05/17 19: 27; Start 02/25/17 at 21:00 Risperidone (RisperDAL) 0.5 mg TID@0900,1300,1700 PO Last administered on 03/05 18:08; Start 02/27/17 at 09:00 Carbamazepine (TEGretol) 150 mg BID PO Last administered on 03/03/17 08:14; Start 02/28/17 at 21:00; Stop 03/03/17 at 18:20; Status DC Trazodone HCl (Desyrel) 25 mg TID@0900,1300,1700 PO Last administered on 18:08; Start 03/01/17 at 09:00 Fluvoxamine Maleate (Luvox) 150 mg HS PO Last administered on 03/05/17 19:27 ; Start 02/28/17 at 21:00 [place] Carbonate 300 mg QHS PO Last administered on 03/05/17 19:27; Start 03/02/17 at 21:00 Influenza Virus Vaccine Quadrival (Fluarix Quad [id number] Syringe) 0.5 ml ONCE ONCE VAX IM Last administered on 03/04/17 09:57; Start 03/04/17 at 09:00; Stop 03/04/17 at 09:01; Status DC [place] Carbonate 150 mg DAILY PO ; Start 03/06/17 at 09:00 Active Scripts Active Reported Atorvastatin Calcium 40 Mg Tablet 40 Mg PO QHS Naproxen 500 Mg Tablet 500 Mg PO BID Lorazepam 0.5 Mg Tablet 0.5 Mg PO PRN Q4HRS PRN Seroquel (Quetiapine Fumarate) 25 Mg Tablet 25 Mg PO BID Zoloft (Sertraline Hcl) 100 Mg Tablet 100 Mg PO DAILY Levothyroxine Sodium 112 Mcg Tablet 112 Mcg PO DAILYAC Olanzapine 5 Mg Tablet 5 Mg PO HS Alprazolam 0.5 Mg Tablet 0.5 Mg PO BID Diagnosis: Problems: (1) Anxiety disorder (2) Bipolar 1 disorder, mixed, moderate (3) Dementia in Alzheimer's disease with delusions (4) Dementia in Alzheimer's disease with depression (5) Dementia, vascular, with depression (6) Dementia, vascular, with delusions (7) Impulse control disorder ELEANOR BILLS MD Mar 05, 2017 20:51
[2017-03-05] MEDS: LORazepam 0.5 MG TABLET PO PRN (23:04)
[2017-03-06] MEDS: LEVOTHYROXINE 112 MCG TABLET PO SCH (05:33)
[2017-03-06 07:23] VITALS: BP 126/78
[2017-03-06] MEDS: POLYETHYLENE GLYCOL 3350 17 GM PACKET. PO SCH (08:37)
[2017-03-06] MEDS: DOCUSATE SODIUM 100 MG CAPSULE PO SCH ×2 (08:37→20:02)
[2017-03-06] MEDS: traZODone 50 MG TABLET. PO SCH ×3 (08:37→16:56)
[2017-03-06] MEDS: CEFPODOXIME PROXETIL 100 MG TABLET PO SCH (08:37)
[2017-03-06] MEDS: risperiDONE 0.5 MG TABLET. PO SCH ×3 (08:37→16:56)
[2017-03-06] MEDS: NAPROXEN 500 MG TABLET PO SCH ×2 (08:37→20:02)
[2017-03-06] MEDS: ENOXAPARIN 40 MG/0.4 ML DISP.SYRIN. SQ SCH (08:38)
--- NOTE | 2017-03-06 08:38 | PN ---
DATE: 03/02/2017 This late entry 03/02/2017 covers elements not covered in my initial note of 03/02/2017. SUBJECTIVE: I met with the patient in the evening of 03/02/2017, staffed at a treatment team meeting with the entire team morning 03/02/2017. I have gathered further historical information from the daughter and her premorbid history is very definitely positive for bipolar disorder according to the daughter. The patient continues to have significant yelling, screaming, repetitive, agitated behaviors, extremely disruptive to the entire milieu, quite challenging and her very limited response to multiple changes in psychotropics we have made so far. In fact, overall very difficult to treat her given her nonresponse and I strongly feel that her element of bipolar disorder is not adequately controlled, worsening her mood lability, yelling, agitation and as noted below, we will be starting lithium and adjust therapeutic level to help control this. REVIEW OF SYSTEMS: Ambulation impaired, in a Broda chair. No CV, , pulmonary, eye, ENT system symptoms on review. She has vague somatic symptoms. MENTAL STATUS EXAM: Oriented to herself. Insight, judgment, recent and remote memory, attention, concentration, fund of knowledge poor, consistent with her diagnosis as mentioned in my initial note. PLAN: Start lithium carbonate 300 mg at bedtime. Check CBC, CMP and lithium level in 3 days. Maintain rest of the psychotropics mentioned in my initial note, reviewed drug interactions, risk/benefit ratio favors no further change. Reportedly, [facility] has a unit where most of the patients yell out and they are willing to accept and we may have to do it sometime early to middle of next week. MAN Aden BILLS MD DR: JAIME/meli JOB#: [id number] / [id number]
[2017-03-06] MEDS: LITHIUM CARBONATE 150 MG CAPSULE. PO SCH (08:39)
--- NOTE | 2017-03-06 09:38 | PN ---
DATE: 03/04/2017 DATE OF SERVICE: 03/04/2017 This late entry 03/04/2017 covers elements not covered in my initial order of 03/04/2017. SUBJECTIVE: I met with the patient on the evening of 03/04/2017. The patient slept 6-3/4 hours previous evening, remains anxious, restless, yelling, repeatedly cursing at staff obsessive with marked mood lability. There is a question whether this is a slight improvement on the lithium, but we will have to wait and see. Labs are to be drawn on 03/05/2017. REVIEW OF SYSTEMS: Ambulation impaired . No CV, , pulmonary, eye, ENT system symptoms on review. Reliability is poor. MENTAL STATUS EXAM: Oriented to herself. Insight, judgment, recent and remote memory, attention, concentration, fund of knowledge poor, consistent with her diagnosis. Previous evening, she is extremely agitated, received trazodone, Ativan at 7:13 p.m. and then this morning of 03/04/2017 received trazodone p.r.n. and Tylenol with little benefit on her agitation, however. IMPRESSION: Unchanged from initial note. PLAN: Continue current psychotropics, check labs level on the lithium 03/05/2017, adjust further as clinically indicated. Reviewed drug contractions risk, benefit ratio, there was further change. ELEANOR BILLS MD DR: JAIME/meli JOB#: [id number] / [id number]
--- NOTE | 2017-03-06 09:41 | PN ---
DATE: 03/03/2017 This is a late entry 03/03/2017, covers elements not covered in my initial note of 03/03/2017. SUBJECTIVE: I met with the patient in the evening of 03/03/2017. The patient had a very difficult day. She has been loud, yelling, screaming, repetitive, verbally abusive. REVIEW OF SYSTEMS: Ambulation impaired, in a Broda chair. No CV, , pulmonary, eye, ENT system symptoms on review. Reliability poor. MENTAL STATUS EXAM: Oriented to herself. Insight, judgment, recent and remote memory, attention, concentration, fund of knowledge poor, consistent with her diagnosis as mentioned in my initial note. PLAN: Continue current psychotropic, stop the Tegretol. We started her on lithium 300 mg at bedtime. Follow labs level on the lithium to reach a therapeutic level. Reviewed drug interactions, risk/benefit ratio, favors no further change for now. ELEANOR BILLS MD DR: JAIME/meli JOB#: [id number] / [id number]
[2017-03-06 16:14] VITALS: BP 142/71
[2017-03-06] MEDS: traZODone 100 MG TABLET. PO PRN (20:02)
[2017-03-06] MEDS: LITHIUM CARBONATE 300 MG TABLET PO SCH (20:02)
[2017-03-06] MEDS: ATORVASTATIN CALCIUM 20 MG TABLET PO SCH (20:02)
[2017-03-06] MEDS: MIRTAZAPINE 15 MG TABLET PO SCH (20:05)
--- NOTE | 2017-03-06 21:28 | PDOC ---
Exam Jeanmarie Demential Exam: Jeanmarie Note: Please also refer to the separate dictated note~for this date of service dictated separately.~Patient seen individually. Discussed the patient with Nursing staff reviewed the chart.~Reviewed interim history and current functioning. Reviewed vital signs,~Labs/ Radiology~and current medications noted below. Continue current treatment with the changes noted in the dictated addendum note Assessment: Vital Signs: Vital Signs Date Time Temp Pulse Resp B/P (MAP) Pulse Ox O2 Delivery O2 Flow Rate FiO2 03/06/17 16:14 97.8 89 20 142/71 (94) 96 Room Air I&O Intake and Output 03/07/17 07:00 Intake Total 1080 ml Balance 1080 ml Intake Oral 1080 ml # Bowel Movements 1 Current Medications: Meds: Current Medications Lorazepam (Ativan) 0.5 mg 1X ONCE PO Last administered on 02/01/17 19:14; Start 02/01/17 at 19:15; Stop 02/01/17 at 19:16; Status DC Ceftriaxone Sodium (Rocephin Im) 1 gm 1X ONCE IM Last administered on 20:45; Start 02/01/17 at 20:30; Stop 02/01/17 at 20:31; Status DC Acetaminophen (Tylenol) 650 mg PRN Q6HRS PRN PO MILD PAIN / TEMP Last administered on 03/04/17 03:13; Start 02/01/17 at 23:15 Multi-Ingredient Ointment (Analgesic [place]) 1 rosita PRN QID PRN TP MUSCLE PAIN; Start 02/01/17 at 23:15 Al Hydroxide/Mg Hydroxide (Mylanta Plus Xs) 15 ml PRN AFTMEALHC PRN PO DYSPEPSIA; Start 02/01/17 at 23:15 Magnesium Hydroxide (Milk Of Magnesia) 2,400 mg PRN QHS PRN PO CONSTIPATION Last administered on 02/13/17 02:05; Start 02/01/17 at 23:15 Olanzapine (ZyPREXA) 5 mg HS PO Last administered on 02/13/17 19:31; Start at 21:00; Stop 02/14/17 at 18:51; Status DC Quetiapine Fumarate (SEROquel) 25 mg BID PO Last administered on 02/08/17 08: 42; Start 02/02/17 at 09:00; Stop 02/08/17 at 19:16; Status DC Sertraline HCl (Zoloft) 100 mg DAILY PO Last administered on 02/06/17 08:01; Start 02/02/17 at 09:00; Stop 02/06/17 at 18:56; Status DC Olanzapine (ZyPREXA) 5 mg 1X ONCE PO Last administered on 02/02/17 00:27; Start 02/02/17 at 00:30; Stop 02/02/17 at 00:31; Status DC Alprazolam (Xanax) 0.5 mg BID PO Last administered on 02/13/17 11:42; Start at 09:00; Stop 02/13/17 at 18:35; Status DC Lorazepam (Ativan) 0.5 mg PRN Q4HRS PRN PO ANXIETY / AGITATION Last administered on 02/02/17 14:57; Start 02/02/17 at 00:15; Stop 02/02/17 at 15:59 ; Status DC Levothyroxine Sodium (Synthroid) 112 mcg DAILY06 PO Last administered on 05:33; Start 02/02/17 at 10:00 Naproxen (Naprosyn) 500 mg BID PO Last administered on 03/06/17 20:02; Start 02/02/17 at 09:00 Atorvastatin Calcium (Lipitor) 40 mg QHS PO Last administered on 03/06/17 20: 02; Start 02/02/17 at 21:00 Mirtazapine (Remeron) 7.5 mg QHS PO Last administered on 02/20/17 23:08; Start 02/02/17 at 21:00; Stop 02/21/17 at 19:38; Status DC Olanzapine (ZyPREXA ZYDIS) 2.5 mg PRN Q2HR PRN PO PSYCHOSIS Last administered on 03/05/17 19:29; Start 02/02/17 at 15:45 Alprazolam (Xanax) 0.25 mg PRN Q2HR PRN PO ANXIETY / AGITATION Last administered on 02/13/17 16:33; Start 02/02/17 at 15:45; Stop 02/13/17 at 18:35 ; Status DC Docusate Sodium (Colace) 100 mg BID PO Last administered on 03/06/17 20:02; Start 02/02/17 at 21:00 Polyethylene Glycol (miraLAX) 17 gm DAILY PO Last administered on 03/06/17 08 :37; Start 02/03/17 at 09:00 Vitamin D (Vitamin D3) 50,000 unit WEEKLY PO Last administered on 03/03/17 08 :15; Start 02/10/17 at 09:00 Divalproex Sodium (Depakote Sprinkles) 125 mg TID@0900,1300,1700 PO Last administered on 02/06/17 16:46; Start 02/04/17 at 09:00; Stop 02/06/17 at 18:56 ; Status DC Divalproex Sodium (Depakote Sprinkles) 250 mg TID@0900,1300,1700 PO Last administered on 02/09/17 09:13; Start 02/07/17 at 09:00; Stop 02/09/17 at 13:03 ; Status DC Fluvoxamine Maleate (Luvox) 50 mg HS PO Last administered on 02/13/17 19:32; Start 02/06/17 at 21:00; Stop 02/14/17 at 18:51; Status DC Quetiapine Fumarate (SEROquel) 25 mg TID PO Last administered on 02/09/17 09: 16; Start 02/09/17 at 09:00; Stop 02/09/17 at 13:30; Status DC Divalproex Sodium (Depakote Sprinkles) 375 mg TID@0900,1300,1700 PO Last administered on 02/16/17 08:01; Start 02/09/17 at 13:00; Stop 02/16/17 at 19:13 ; Status DC Quetiapine Fumarate (SEROquel) 37.5 mg TID PO Last administered on 02/12/17 12 :55; Start 02/09/17 at 14:00; Stop 02/12/17 at 17:56; Status DC Olanzapine (ZyPREXA) 5 mg 1X ONCE PO Last administered on 02/12/17 11:57; Start 02/12/17 at 12:00; Stop 02/12/17 at 12:01; Status DC Quetiapine Fumarate (SEROquel) 50 mg TID PO Last administered on 02/19/17 13: 43; Start 02/12/17 at 21:00; Stop 02/19/17 at 18:29; Status DC Lorazepam (Ativan) 0.5 mg PRN Q2HR PRN PO ANXIETY / AGITATION Last administered on 03/05/17 23:04; Start 02/13/17 at 18:45 Lorazepam (Ativan) 0.5 mg BID PO Last administered on 02/16/17 08:04; Start at 21:00; Stop 02/17/17 at 17:37; Status DC Fluvoxamine Maleate (Luvox) 75 mg HS PO Last administered on 02/15/17 19:11; Start 02/14/17 at 21:00; Stop 02/16/17 at 22:01; Status DC Trazodone HCl (Desyrel) 12.5 mg TID PO Last administered on 02/14/17 19:39; Start 02/14/17 at 19:00; Stop 02/14/17 at 21:12; Status DC Trazodone HCl (Desyrel) 12.5 mg TIDWMEALS PO Last administered on 02/19/17 07: 57; Start 02/15/17 at 08:00; Stop 02/19/17 at 09:00; Status DC Fluvoxamine Maleate (Luvox) 100 mg HS PO Last administered on 02/27/17 19:14; Start 02/16/17 at 21:00; Stop 02/28/17 at 18:33; Status DC Lorazepam (Ativan) 0.25 mg BID PO Last administered on 02/18/17 20:06; Start 02/17/17 at 21:00; Stop 02/18/17 at 22:00; Status DC Trazodone HCl (Desyrel) 12.5 mg QID PO Last administered on 02/28/17 16:43; Start 02/19/17 at 09:00; Stop 02/28/17 at 18:19; Status DC Risperidone (RisperDAL) 0.125 mg TID@0900,1300,1700 PO Last administered on 17:31; Start 02/20/17 at 09:00; Stop 02/20/17 at 22:50; Status DC Mirtazapine (Remeron) 15 mg QHS PO Last administered on 03/06/17 20:05; Start 02/21/17 at 21:00 Trazodone HCl (Desyrel) 50 mg PRN QHS PRN PO INSOMNIA, MAY REPEAT X1 Last administered on 02/23/17 00:34; Start 02/20/17 at 22:45; Stop 02/23/17 at 10:59 ; Status DC Risperidone (RisperDAL) 0.25 mg TID@0900,1300,1700 PO Last administered on 02/24 17:20; Start 02/21/17 at 09:00; Stop 02/24/17 at 19:06; Status DC Trazodone HCl (Desyrel) 100 mg PRN QHS PRN PO INSOMNIA, MAY REPEAT X1 Last administered on 03/06/17 20:02; Start 02/23/17 at 11:15 Risperidone (RisperDAL) 0.375 mg TID@0900,1300,1700 PO Last administered on 16:26; Start 02/25/17 at 09:00; Stop 02/26/17 at 18:57; Status DC Carbamazepine (TEGretol) 200 mg QHS PO Last administered on 02/27/17 19:14; Start 02/24/17 at 21:00; Stop 02/28/17 at 18:19; Status DC Enoxaparin Sodium (Lovenox) 40 mg Q24H SQ Last administered on 03/06/17 08:38 ; Start 02/25/17 at 14:00 Cefpodoxime Proxetil (Vantin) 100 mg BID PO Last administered on 03/06/17 08: 37; Start 02/25/17 at 21:00; Stop 03/06/17 at 12:55; Status DC Risperidone (RisperDAL) 0.5 mg TID@0900,1300,1700 PO Last administered on 03/06 16:56; Start 02/27/17 at 09:00 Carbamazepine (TEGretol) 150 mg BID PO Last administered on 03/03/17 08:14; Start 02/28/17 at 21:00; Stop 03/03/17 at 18:20; Status DC Trazodone HCl (Desyrel) 25 mg TID@0900,1300,1700 PO Last administered on 16:56; Start 03/01/17 at 09:00 Fluvoxamine Maleate (Luvox) 150 mg HS PO Last administered on 03/06/17 20:03 ; Start 02/28/17 at 21:00 [place] Carbonate 300 mg QHS PO Last administered on 03/06/17 20:02; Start 03/02/17 at 21:00 Influenza Virus Vaccine Quadrival (Fluarix Quad [id number] Syringe) 0.5 ml ONCE ONCE VAX IM Last administered on 03/04/17 09:57; Start 03/04/17 at 09:00; Stop 03/04/17 at 09:01; Status DC [place] Carbonate 150 mg DAILY PO Last administered on 03/06/17 08:39; Start 03/06/17 at 09:00 Active Scripts Active Reported Atorvastatin Calcium 40 Mg Tablet 40 Mg PO QHS Naproxen 500 Mg Tablet 500 Mg PO BID Lorazepam 0.5 Mg Tablet 0.5 Mg PO PRN Q4HRS PRN Seroquel (Quetiapine Fumarate) 25 Mg Tablet 25 Mg PO BID Zoloft (Sertraline Hcl) 100 Mg Tablet 100 Mg PO DAILY Levothyroxine Sodium 112 Mcg Tablet 112 Mcg PO DAILYAC Olanzapine 5 Mg Tablet 5 Mg PO HS Alprazolam 0.5 Mg Tablet 0.5 Mg PO BID Diagnosis: Problems: (1) Anxiety disorder (2) Bipolar 1 disorder, mixed, moderate (3) Dementia in Alzheimer's disease with delusions (4) Dementia, vascular, with delusions (5) Dementia in Alzheimer's disease with depression (6) Dementia, vascular, with depression (7) Impulse control disorder ELEANOR BILLS MD Mar 06, 2017 21:28
[2017-03-07] MEDS: LORazepam 0.5 MG TABLET PO PRN ×2 (02:55→17:53)
[2017-03-07] MEDS: LEVOTHYROXINE 112 MCG TABLET PO SCH (05:38)
[2017-03-07 06:17] VITALS: BP 129/71
[2017-03-07] MEDS: ENOXAPARIN 40 MG/0.4 ML DISP.SYRIN. SQ SCH (07:42)
[2017-03-07] MEDS: POLYETHYLENE GLYCOL 3350 17 GM PACKET. PO SCH (07:42)
[2017-03-07] MEDS: NAPROXEN 500 MG TABLET PO SCH ×2 (07:42→19:58)
[2017-03-07] MEDS: risperiDONE 0.5 MG TABLET. PO SCH ×3 (07:42→17:53)
[2017-03-07] MEDS: traZODone 50 MG TABLET. PO SCH ×3 (07:42→17:54)
[2017-03-07] MEDS: DOCUSATE SODIUM 100 MG CAPSULE PO SCH ×2 (07:42→19:57)
[2017-03-07] MEDS: LITHIUM CARBONATE 150 MG CAPSULE. PO SCH (07:42)
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
[2017-03-07 16:06] VITALS: BP 155/74
[2017-03-07] MEDS: ACETAMINOPHEN 325 MG TABLET PO PRN (17:53)
[2017-03-07] MEDS: MIRTAZAPINE 15 MG TABLET PO SCH (19:57)
[2017-03-07] MEDS: LITHIUM CARBONATE 300 MG TABLET PO SCH (19:59)
[2017-03-07] MEDS: ATORVASTATIN CALCIUM 20 MG TABLET PO SCH (19:59)
[2017-03-07] MEDS: traZODone 100 MG TABLET. PO PRN ×2 (20:02)
--- NOTE | 2017-03-07 20:24 | PDOC ---
Exam Jeanmarie Demential Exam: Jeanmarie Note: Please also refer to the separate dictated note~for this date of service dictated separately.~Patient seen individually. Discussed the patient with Nursing staff reviewed the chart.~Reviewed interim history and current functioning. Reviewed vital signs,~Labs/ Radiology~and current medications noted below. Continue current treatment with the changes noted in the dictated addendum note Assessment: Vital Signs: Vital Signs Date Time Temp Pulse Resp B/P (MAP) Pulse Ox O2 Delivery O2 Flow Rate FiO2 03/07/17 16:06 97.0 85 20 155/74 (101) 95 03/06/17 16:14 Room Air I&O Intake and Output 03/08/17 07:00 Intake Total 720 ml Balance 720 ml Intake Oral 720 ml Current Medications: Meds: Current Medications Lorazepam (Ativan) 0.5 mg 1X ONCE PO Last administered on 02/01/17 19:14; Start 02/01/17 at 19:15; Stop 02/01/17 at 19:16; Status DC Ceftriaxone Sodium (Rocephin Im) 1 gm 1X ONCE IM Last administered on 20:45; Start 02/01/17 at 20:30; Stop 02/01/17 at 20:31; Status DC Acetaminophen (Tylenol) 650 mg PRN Q6HRS PRN PO MILD PAIN / TEMP Last administered on 03/07/17 17:53; Start 02/01/17 at 23:15 Multi-Ingredient Ointment (Analgesic [place]) 1 rosita PRN QID PRN TP MUSCLE PAIN; Start 02/01/17 at 23:15 Al Hydroxide/Mg Hydroxide (Mylanta Plus Xs) 15 ml PRN AFTMEALHC PRN PO DYSPEPSIA; Start 02/01/17 at 23:15 Magnesium Hydroxide (Milk Of Magnesia) 2,400 mg PRN QHS PRN PO CONSTIPATION Last administered on 02/13/17 02:05; Start 02/01/17 at 23:15 Olanzapine (ZyPREXA) 5 mg HS PO Last administered on 02/13/17 19:31; Start at 21:00; Stop 02/14/17 at 18:51; Status DC Quetiapine Fumarate (SEROquel) 25 mg BID PO Last administered on 02/08/17 08: 42; Start 02/02/17 at 09:00; Stop 02/08/17 at 19:16; Status DC Sertraline HCl (Zoloft) 100 mg DAILY PO Last administered on 02/06/17 08:01; Start 02/02/17 at 09:00; Stop 02/06/17 at 18:56; Status DC Olanzapine (ZyPREXA) 5 mg 1X ONCE PO Last administered on 02/02/17 00:27; Start 02/02/17 at 00:30; Stop 02/02/17 at 00:31; Status DC Alprazolam (Xanax) 0.5 mg BID PO Last administered on 02/13/17 11:42; Start at 09:00; Stop 02/13/17 at 18:35; Status DC Lorazepam (Ativan) 0.5 mg PRN Q4HRS PRN PO ANXIETY / AGITATION Last administered on 02/02/17 14:57; Start 02/02/17 at 00:15; Stop 02/02/17 at 15:59 ; Status DC Levothyroxine Sodium (Synthroid) 112 mcg DAILY06 PO Last administered on 05:38; Start 02/02/17 at 10:00 Naproxen (Naprosyn) 500 mg BID PO Last administered on 03/07/17 19:58; Start 02/02/17 at 09:00 Atorvastatin Calcium (Lipitor) 40 mg QHS PO Last administered on 03/07/17 19: 59; Start 02/02/17 at 21:00 Mirtazapine (Remeron) 7.5 mg QHS PO Last administered on 02/20/17 23:08; Start 02/02/17 at 21:00; Stop 02/21/17 at 19:38; Status DC Olanzapine (ZyPREXA ZYDIS) 2.5 mg PRN Q2HR PRN PO PSYCHOSIS Last administered on 03/05/17 19:29; Start 02/02/17 at 15:45 Alprazolam (Xanax) 0.25 mg PRN Q2HR PRN PO ANXIETY / AGITATION Last administered on 02/13/17 16:33; Start 02/02/17 at 15:45; Stop 02/13/17 at 18:35 ; Status DC Docusate Sodium (Colace) 100 mg BID PO Last administered on 03/07/17 19:57; Start 02/02/17 at 21:00 Polyethylene Glycol (miraLAX) 17 gm DAILY PO Last administered on 03/07/17 07 :42; Start 02/03/17 at 09:00 Vitamin D (Vitamin D3) 50,000 unit WEEKLY PO Last administered on 03/03/17 08 :15; Start 02/10/17 at 09:00 Divalproex Sodium (Depakote Sprinkles) 125 mg TID@0900,1300,1700 PO Last administered on 02/06/17 16:46; Start 02/04/17 at 09:00; Stop 02/06/17 at 18:56 ; Status DC Divalproex Sodium (Depakote Sprinkles) 250 mg TID@0900,1300,1700 PO Last administered on 02/09/17 09:13; Start 02/07/17 at 09:00; Stop 02/09/17 at 13:03 ; Status DC Fluvoxamine Maleate (Luvox) 50 mg HS PO Last administered on 02/13/17 19:32; Start 02/06/17 at 21:00; Stop 02/14/17 at 18:51; Status DC Quetiapine Fumarate (SEROquel) 25 mg TID PO Last administered on 02/09/17 09: 16; Start 02/09/17 at 09:00; Stop 02/09/17 at 13:30; Status DC Divalproex Sodium (Depakote Sprinkles) 375 mg TID@0900,1300,1700 PO Last administered on 02/16/17 08:01; Start 02/09/17 at 13:00; Stop 02/16/17 at 19:13 ; Status DC Quetiapine Fumarate (SEROquel) 37.5 mg TID PO Last administered on 02/12/17 12 :55; Start 02/09/17 at 14:00; Stop 02/12/17 at 17:56; Status DC Olanzapine (ZyPREXA) 5 mg 1X ONCE PO Last administered on 02/12/17 11:57; Start 02/12/17 at 12:00; Stop 02/12/17 at 12:01; Status DC Quetiapine Fumarate (SEROquel) 50 mg TID PO Last administered on 02/19/17 13: 43; Start 02/12/17 at 21:00; Stop 02/19/17 at 18:29; Status DC Lorazepam (Ativan) 0.5 mg PRN Q2HR PRN PO ANXIETY / AGITATION Last administered on 03/07/17 17:53; Start 02/13/17 at 18:45 Lorazepam (Ativan) 0.5 mg BID PO Last administered on 02/16/17 08:04; Start at 21:00; Stop 02/17/17 at 17:37; Status DC Fluvoxamine Maleate (Luvox) 75 mg HS PO Last administered on 02/15/17 19:11; Start 02/14/17 at 21:00; Stop 02/16/17 at 22:01; Status DC Trazodone HCl (Desyrel) 12.5 mg TID PO Last administered on 02/14/17 19:39; Start 02/14/17 at 19:00; Stop 02/14/17 at 21:12; Status DC Trazodone HCl (Desyrel) 12.5 mg TIDWMEALS PO Last administered on 02/19/17 07: 57; Start 02/15/17 at 08:00; Stop 02/19/17 at 09:00; Status DC Fluvoxamine Maleate (Luvox) 100 mg HS PO Last administered on 02/27/17 19:14; Start 02/16/17 at 21:00; Stop 02/28/17 at 18:33; Status DC Lorazepam (Ativan) 0.25 mg BID PO Last administered on 02/18/17 20:06; Start 02/17/17 at 21:00; Stop 02/18/17 at 22:00; Status DC Trazodone HCl (Desyrel) 12.5 mg QID PO Last administered on 02/28/17 16:43; Start 02/19/17 at 09:00; Stop 02/28/17 at 18:19; Status DC Risperidone (RisperDAL) 0.125 mg TID@0900,1300,1700 PO Last administered on 17:31; Start 02/20/17 at 09:00; Stop 02/20/17 at 22:50; Status DC Mirtazapine (Remeron) 15 mg QHS PO Last administered on 03/07/17 19:57; Start 02/21/17 at 21:00 Trazodone HCl (Desyrel) 50 mg PRN QHS PRN PO INSOMNIA, MAY REPEAT X1 Last administered on 02/23/17 00:34; Start 02/20/17 at 22:45; Stop 02/23/17 at 10:59 ; Status DC Risperidone (RisperDAL) 0.25 mg TID@0900,1300,1700 PO Last administered on 02/24 17:20; Start 02/21/17 at 09:00; Stop 02/24/17 at 19:06; Status DC Trazodone HCl (Desyrel) 100 mg PRN QHS PRN PO INSOMNIA, SEPTEMBER REPEAT X1 Last administered on 03/07/17 20:02; Start 02/23/17 at 11:15 Risperidone (RisperDAL) 0.375 mg TID@0900,1300,1700 PO Last administered on 16:26; Start 02/25/17 at 09:00; Stop 02/26/17 at 18:57; Status DC Carbamazepine (TEGretol) 200 mg QHS PO Last administered on 02/27/17 19:14; Start 02/24/17 at 21:00; Stop 02/28/17 at 18:19; Status DC Enoxaparin Sodium (Lovenox) 40 mg Q24H SQ Last administered on 03/07/17 07:42 ; Start 02/25/17 at 14:00 Cefpodoxime Proxetil (Vantin) 100 mg BID PO Last administered on 03/06/17 08: 37; Start 02/25/17 at 21:00; Stop 03/06/17 at 12:55; Status DC Risperidone (RisperDAL) 0.5 mg TID@0900,1300,1700 PO Last administered on 03/07 17:53; Start 02/27/17 at 09:00 Carbamazepine (TEGretol) 150 mg BID PO Last administered on 03/03/17 08:14; Start 02/28/17 at 21:00; Stop 03/03/17 at 18:20; Status DC Trazodone HCl (Desyrel) 25 mg TID@0900,1300,1700 PO Last administered on 17:54; Start 03/01/17 at 09:00 Fluvoxamine Maleate (Luvox) 150 mg HS PO Last administered on 03/07/17 19:58 ; Start 02/28/17 at 21:00 [place] Carbonate 300 mg QHS PO Last administered on 03/07/17 19:59; Start 03/02/17 at 21:00 Influenza Virus Vaccine Quadrival (Fluarix Quad [id number] Syringe) 0.5 ml ONCE ONCE VAX IM Last administered on 03/04/17 09:57; Start 03/04/17 at 09:00; Stop 03/04/17 at 09:01; Status DC [place] Carbonate 150 mg DAILY PO Last administered on 03/07/17 07:42; Start 03/06/17 at 09:00 Active Scripts Active Reported Atorvastatin Calcium 40 Mg Tablet 40 Mg PO QHS Naproxen 500 Mg Tablet 500 Mg PO BID Lorazepam 0.5 Mg Tablet 0.5 Mg PO PRN Q4HRS PRN Seroquel (Quetiapine Fumarate) 25 Mg Tablet 25 Mg PO BID Zoloft (Sertraline Hcl) 100 Mg Tablet 100 Mg PO DAILY Levothyroxine Sodium 112 Mcg Tablet 112 Mcg PO DAILYAC Olanzapine 5 Mg Tablet 5 Mg PO HS Alprazolam 0.5 Mg Tablet 0.5 Mg PO BID Diagnosis: Problems: (1) Anxiety disorder (2) Bipolar 1 disorder, mixed, moderate (3) Dementia in Alzheimer's disease with delusions (4) Dementia in Alzheimer's disease with depression (5) Dementia, vascular, with depression (6) Dementia, vascular, with delusions (7) Impulse control disorder ELEANOR BILLS MD Mar 07, 2017 20:24
[2017-03-08 06:00] VITALS: BP 153/79
[2017-03-08 07:56] LABS: BASO # 0.2 x10^3/uL (0.0-0.2); BASO % 2 % (0-3); EOS # 0.8 x10^3/uL (0.0-0.7); EOS % 8 % (0-3); HEMATOCRIT 38.7 % (36.0-47.0); HEMOGLOBIN 12.9 g/dL (12.0-15.5); LYMPH # 2.4 x10^3/uL (1.0-4.8); LYMPH % 23 % (24-48); MEAN CORPUSCULAR HEMOGLOBIN 30 pg (25-35); MEAN CORPUSCULAR HGB CONC 33 g/dL (31-37); MEAN CORPUSCULAR VOLUME 91 fL (79-100); MONO # 0.8 x10^3/uL (0.0-1.1); MONO % 8 % (0-9); NEUT # 5.9 x10^3uL (1.8-7.7); NEUT % 59 % (31-73); PLATELET COUNT 377 x10^3/uL (140-400); RED BLOOD COUNT 4.24 x10^6/uL (3.50-5.40); RED CELL DISTRIBUTION WIDTH 15.7 % (11.5-14.5)
[2017-03-08 08:15] LABS: ALBUMIN 3.3 g/dL (3.4-5.0); CALCIUM 8.8 mg/dL (8.5-10.1); CREATININE 0.6 mg/dL (0.6-1.0); GFR 99.7; POTASSIUM 4.4 mmol/L (3.5-5.1); TOTAL BILIRUBIN 0.4 mg/dL (0.2-1.0); TOTAL PROTEIN 6.5 g/dL (6.4-8.2)
[2017-03-08] MEDS: LITHIUM CARBONATE 150 MG CAPSULE. PO SCH (09:08)
[2017-03-08] MEDS: NAPROXEN 500 MG TABLET PO SCH ×2 (09:08→19:46)
[2017-03-08] MEDS: traZODone 50 MG TABLET. PO SCH ×3 (09:08→17:07)
[2017-03-08] MEDS: risperiDONE 0.5 MG TABLET. PO SCH ×3 (09:08→17:07)
[2017-03-08] MEDS: POLYETHYLENE GLYCOL 3350 17 GM PACKET. PO SCH (09:09)
[2017-03-08] MEDS: LEVOTHYROXINE 112 MCG TABLET PO SCH (09:09)
[2017-03-08] MEDS: ENOXAPARIN 40 MG/0.4 ML DISP.SYRIN. SQ SCH (09:09)
[2017-03-08] MEDS: DOCUSATE SODIUM 100 MG CAPSULE PO SCH ×2 (09:09→19:45)
[2017-03-08] MEDS: ACETAMINOPHEN 325 MG TABLET PO PRN (09:20)
--- NOTE | 2017-03-08 09:24 | PN ---
DATE: 03/06/2017 PSYCHIATRIC PROGRESS NOTE This is a late entry for 03/06/2017, covers the elements not covered in my initial note of 03/06/2017. SUBJECTIVE: I met with the patient evening of 03/06/2017. The patient slept 4 hours the previous evening. Overall, the yelling, repetitive obsessive compulsive verbalizations are improved. She is less verbally abusive, redirects easily, had her nails painted, less angry per nursing report, less obsessive. REVIEW OF SYSTEMS: Ambulation impaired, in a Broda chair. No CV, , pulmonary, eye, ENT system symptoms on review. Reliability poor. MENTAL STATUS EXAM: Oriented to herself. Insight, judgment, recent and remote memory, attention, concentration, fund of knowledge poor, consistent with her diagnosis mentioned in my initial note. LABORATORY DATA: Reviewed. IMPRESSION: Unchanged from initial note. PLAN: Continue current psychotropics mentioned in my initial note. Reviewed drug interactions. Risk/benefit ratio favors no further change. ELEANOR BILLS MD DR: JAIME/meli JOB#: [id number] / [id number]
[2017-03-08] MEDS: LORazepam 0.5 MG TABLET PO PRN ×2 (12:14→19:50)
[2017-03-08 14:39] LABS: LI 0.6 mmol/L (0.6-1.2)
[2017-03-08 16:19] VITALS: BP 124/70
[2017-03-08] MEDS: ATORVASTATIN CALCIUM 20 MG TABLET PO SCH (19:45)
[2017-03-08] MEDS: LITHIUM CARBONATE 300 MG TABLET PO SCH (19:45)
[2017-03-08] MEDS: MIRTAZAPINE 15 MG TABLET PO SCH (19:46)
--- NOTE | 2017-03-08 20:53 | PDOC ---
Exam Jeanmarie Demential Exam: Jeanmarie Note: Please also refer to the separate dictated note~for this date of service dictated separately.~Patient seen individually. Discussed the patient with Nursing staff reviewed the chart.~Reviewed interim history and current functioning. Reviewed vital signs,~Labs/ Radiology~and current medications noted below. Continue current treatment with the changes noted in the dictated addendum note Assessment: Vital Signs: Vital Signs Date Time Temp Pulse Resp B/P (MAP) Pulse Ox O2 Delivery O2 Flow Rate FiO2 03/08/17 16:19 98.8 88 20 124/70 (88) 96 03/06/17 16:14 Room Air I&O Intake and Output 03/09/17 06:59 Intake Total 1140 ml Balance 1140 ml Intake Oral 1140 ml # Bowel Movements 2 Labs: Laboratory Tests Test 03/08/17 07:46 White Blood Count 10.0 x10^3/uL (4.0-11.0) Red Blood Count 4.24 x10^6/uL (3.50-5.40) Hemoglobin 12.9 g/dL (12.0-15.5) Hematocrit 38.7 % (36.0-47.0) Mean Corpuscular Volume 91 fL (79-100) Mean Corpuscular Hemoglobin 30 pg (25-35) Mean Corpuscular Hemoglobin Concent 33 g/dL (31-37) Red Cell Distribution Width 15.7 % (11.5-14.5) H Platelet Count 377 x10^3/uL (140-400) Neutrophils (%) (Auto) 59 % (31-73) Lymphocytes (%) (Auto) 23 % (24-48) L Monocytes (%) (Auto) 8 % (0-9) Eosinophils (%) (Auto) 8 % (0-3) H Basophils (%) (Auto) 2 % (0-3) Neutrophils # (Auto) 5.9 x10^3uL (1.8-7.7) Lymphocytes # (Auto) 2.4 x10^3/uL (1.0-4.8) Monocytes # (Auto) 0.8 x10^3/uL (0.0-1.1) Eosinophils # (Auto) 0.8 x10^3/uL (0.0-0.7) H Basophils # (Auto) 0.2 x10^3/uL (0.0-0.2) Sodium Level 139 mmol/L (136-145) Potassium Level 4.4 mmol/L (3.5-5.1) Chloride Level 105 mmol/L (98-107) Carbon Dioxide Level 28 mmol/L (21-32) Anion Gap 6 (6-14) Blood Urea Nitrogen 21 mg/dL (7-20) H Creatinine 0.6 mg/dL (0.6-1.0) Estimated GFR (Cockcroft-Gault) 99.7 BUN/Creatinine Ratio 35 (6-20) H Glucose Level 98 mg/dL (70-99) Calcium Level 8.8 mg/dL (8.5-10.1) Total Bilirubin 0.4 mg/dL (0.2-1.0) Aspartate Amino Transferase (AST) 51 U/L (15-37) H Alanine Aminotransferase (ALT) 118 U/L (14-59) H Alkaline Phosphatase 152 U/L (46-116) H Total Protein 6.5 g/dL (6.4-8.2) Albumin 3.3 g/dL (3.4-5.0) L Albumin/Globulin Ratio 1.0 (1.0-1.7) [place] Level 0.6 mmol/L (0.6-1.2) [place] Last Dose Date 03/07/17 [place] Last Dose Time 2100 Current Medications: Meds: Current Medications Lorazepam (Ativan) 0.5 mg 1X ONCE PO Last administered on 02/01/17 19:14; Start 02/01/17 at 19:15; Stop 02/01/17 at 19:16; Status DC Ceftriaxone Sodium (Rocephin Im) 1 gm 1X ONCE IM Last administered on 20:45; Start 02/01/17 at 20:30; Stop 02/01/17 at 20:31; Status DC Acetaminophen (Tylenol) 650 mg PRN Q6HRS PRN PO MILD PAIN / TEMP Last administered on 03/08/17 09:20; Start 02/01/17 at 23:15 Multi-Ingredient Ointment (Analgesic [place]) 1 rosita PRN QID PRN TP MUSCLE PAIN; Start 02/01/17 at 23:15 Al Hydroxide/Mg Hydroxide (Mylanta Plus Xs) 15 ml PRN AFTMEALHC PRN PO DYSPEPSIA; Start 02/01/17 at 23:15 Magnesium Hydroxide (Milk Of Magnesia) 2,400 mg PRN QHS PRN PO CONSTIPATION Last administered on 02/13/17 02:05; Start 02/01/17 at 23:15 Olanzapine (ZyPREXA) 5 mg HS PO Last administered on 02/13/17 19:31; Start at 21:00; Stop 02/14/17 at 18:51; Status DC Quetiapine Fumarate (SEROquel) 25 mg BID PO Last administered on 02/08/17 08: 42; Start 02/02/17 at 09:00; Stop 02/08/17 at 19:16; Status DC Sertraline HCl (Zoloft) 100 mg DAILY PO Last administered on 02/06/17 08:01; Start 02/02/17 at 09:00; Stop 02/06/17 at 18:56; Status DC Olanzapine (ZyPREXA) 5 mg 1X ONCE PO Last administered on 02/02/17 00:27; Start 02/02/17 at 00:30; Stop 02/02/17 at 00:31; Status DC Alprazolam (Xanax) 0.5 mg BID PO Last administered on 02/13/17 11:42; Start at 09:00; Stop 02/13/17 at 18:35; Status DC Lorazepam (Ativan) 0.5 mg PRN Q4HRS PRN PO ANXIETY / AGITATION Last administered on 02/02/17 14:57; Start 02/02/17 at 00:15; Stop 02/02/17 at 15:59 ; Status DC Levothyroxine Sodium (Synthroid) 112 mcg DAILY06 PO Last administered on 09:09; Start 02/02/17 at 10:00 Naproxen (Naprosyn) 500 mg BID PO Last administered on 03/08/17 19:46; Start 02/02/17 at 09:00 Atorvastatin Calcium (Lipitor) 40 mg QHS PO Last administered on 03/08/17 19: 45; Start 02/02/17 at 21:00 Mirtazapine (Remeron) 7.5 mg QHS PO Last administered on 02/20/17 23:08; Start 02/02/17 at 21:00; Stop 02/21/17 at 19:38; Status DC Olanzapine (ZyPREXA ZYDIS) 2.5 mg PRN Q2HR PRN PO PSYCHOSIS Last administered on 03/05/17 19:29; Start 02/02/17 at 15:45 Alprazolam (Xanax) 0.25 mg PRN Q2HR PRN PO ANXIETY / AGITATION Last administered on 02/13/17 16:33; Start 02/02/17 at 15:45; Stop 02/13/17 at 18:35 ; Status DC Docusate Sodium (Colace) 100 mg BID PO Last administered on 03/08/17 19:45; Start 02/02/17 at 21:00 Polyethylene Glycol (miraLAX) 17 gm DAILY PO Last administered on 03/08/17 09 :09; Start 02/03/17 at 09:00 Vitamin D (Vitamin D3) 50,000 unit WEEKLY PO Last administered on 03/03/17 08 :15; Start 02/10/17 at 09:00 Divalproex Sodium (Depakote Sprinkles) 125 mg TID@0900,1300,1700 PO Last administered on 02/06/17 16:46; Start 02/04/17 at 09:00; Stop 02/06/17 at 18:56 ; Status DC Divalproex Sodium (Depakote Sprinkles) 250 mg TID@0900,1300,1700 PO Last administered on 02/09/17 09:13; Start 02/07/17 at 09:00; Stop 02/09/17 at 13:03 ; Status DC Fluvoxamine Maleate (Luvox) 50 mg HS PO Last administered on 02/13/17 19:32; Start 02/06/17 at 21:00; Stop 02/14/17 at 18:51; Status DC Quetiapine Fumarate (SEROquel) 25 mg TID PO Last administered on 02/09/17 09: 16; Start 02/09/17 at 09:00; Stop 02/09/17 at 13:30; Status DC Divalproex Sodium (Depakote Sprinkles) 375 mg TID@0900,1300,1700 PO Last administered on 02/16/17 08:01; Start 02/09/17 at 13:00; Stop 02/16/17 at 19:13 ; Status DC Quetiapine Fumarate (SEROquel) 37.5 mg TID PO Last administered on 02/12/17 12 :55; Start 02/09/17 at 14:00; Stop 02/12/17 at 17:56; Status DC Olanzapine (ZyPREXA) 5 mg 1X ONCE PO Last administered on 02/12/17 11:57; Start 02/12/17 at 12:00; Stop 02/12/17 at 12:01; Status DC Quetiapine Fumarate (SEROquel) 50 mg TID PO Last administered on 02/19/17 13: 43; Start 02/12/17 at 21:00; Stop 02/19/17 at 18:29; Status DC Lorazepam (Ativan) 0.5 mg PRN Q2HR PRN PO ANXIETY / AGITATION Last administered on 03/08/17 19:50; Start 02/13/17 at 18:45 Lorazepam (Ativan) 0.5 mg BID PO Last administered on 02/16/17 08:04; Start at 21:00; Stop 02/17/17 at 17:37; Status DC Fluvoxamine Maleate (Luvox) 75 mg HS PO Last administered on 02/15/17 19:11; Start 02/14/17 at 21:00; Stop 02/16/17 at 22:01; Status DC Trazodone HCl (Desyrel) 12.5 mg TID PO Last administered on 02/14/17 19:39; Start 02/14/17 at 19:00; Stop 02/14/17 at 21:12; Status DC Trazodone HCl (Desyrel) 12.5 mg TIDWMEALS PO Last administered on 02/19/17 07: 57; Start 02/15/17 at 08:00; Stop 02/19/17 at 09:00; Status DC Fluvoxamine Maleate (Luvox) 100 mg HS PO Last administered on 02/27/17 19:14; Start 02/16/17 at 21:00; Stop 02/28/17 at 18:33; Status DC Lorazepam (Ativan) 0.25 mg BID PO Last administered on 02/18/17 20:06; Start 02/17/17 at 21:00; Stop 02/18/17 at 22:00; Status DC Trazodone HCl (Desyrel) 12.5 mg QID PO Last administered on 02/28/17 16:43; Start 02/19/17 at 09:00; Stop 02/28/17 at 18:19; Status DC Risperidone (RisperDAL) 0.125 mg TID@0900,1300,1700 PO Last administered on 17:31; Start 02/20/17 at 09:00; Stop 02/20/17 at 22:50; Status DC Mirtazapine (Remeron) 15 mg QHS PO Last administered on 03/08/17 19:46; Start 02/21/17 at 21:00 Trazodone HCl (Desyrel) 50 mg PRN QHS PRN PO INSOMNIA, MAY REPEAT X1 Last administered on 02/23/17 00:34; Start 02/20/17 at 22:45; Stop 02/23/17 at 10:59 ; Status DC Risperidone (RisperDAL) 0.25 mg TID@0900,1300,1700 PO Last administered on 02/24 17:20; Start 02/21/17 at 09:00; Stop 02/24/17 at 19:06; Status DC Trazodone HCl (Desyrel) 100 mg PRN QHS PRN PO INSOMNIA, MAY REPEAT X1 Last administered on 03/07/17 20:02; Start 02/23/17 at 11:15 Risperidone (RisperDAL) 0.375 mg TID@0900,1300,1700 PO Last administered on 16:26; Start 02/25/17 at 09:00; Stop 02/26/17 at 18:57; Status DC Carbamazepine (TEGretol) 200 mg QHS PO Last administered on 02/27/17 19:14; Start 02/24/17 at 21:00; Stop 02/28/17 at 18:19; Status DC Enoxaparin Sodium (Lovenox) 40 mg Q24H SQ Last administered on 03/08/17 09:09 ; Start 02/25/17 at 14:00 Cefpodoxime Proxetil (Vantin) 100 mg BID PO Last administered on 03/06/17 08: 37; Start 02/25/17 at 21:00; Stop 03/06/17 at 12:55; Status DC Risperidone (RisperDAL) 0.5 mg TID@0900,1300,1700 PO Last administered on 03/08 17:07; Start 02/27/17 at 09:00 Carbamazepine (TEGretol) 150 mg BID PO Last administered on 03/03/17 08:14; Start 02/28/17 at 21:00; Stop 03/03/17 at 18:20; Status DC Trazodone HCl (Desyrel) 25 mg TID@0900,1300,1700 PO Last administered on 17:07; Start 03/01/17 at 09:00 Fluvoxamine Maleate (Luvox) 150 mg HS PO Last administered on 03/08/17 19:45 ; Start 02/28/17 at 21:00 [place] Carbonate 300 mg QHS PO Last administered on 03/08/17 19:45; Start 03/02/17 at 21:00 Influenza Virus Vaccine Quadrival (Fluarix Quad [id number] Syringe) 0.5 ml ONCE ONCE VAX IM Last administered on 03/04/17 09:57; Start 03/04/17 at 09:00; Stop 03/04/17 at 09:01; Status DC [place] Carbonate 150 mg DAILY PO Last administered on 03/08/17 09:08; Start 03/06/17 at 09:00 [place] Carbonate 75 mg DAILY PO ; Start 03/09/17 at 09:00 Active Scripts Active Reported Atorvastatin Calcium 40 Mg Tablet 40 Mg PO QHS Naproxen 500 Mg Tablet 500 Mg PO BID Lorazepam 0.5 Mg Tablet 0.5 Mg PO PRN Q4HRS PRN Seroquel (Quetiapine Fumarate) 25 Mg Tablet 25 Mg PO BID Zoloft (Sertraline Hcl) 100 Mg Tablet 100 Mg PO DAILY Levothyroxine Sodium 112 Mcg Tablet 112 Mcg PO DAILYAC Olanzapine 5 Mg Tablet 5 Mg PO HS Alprazolam 0.5 Mg Tablet 0.5 Mg PO BID Diagnosis: Problems: (1) Anxiety disorder (2) Bipolar 1 disorder, mixed, moderate (3) Dementia in Alzheimer's disease with delusions (4) Dementia in Alzheimer's disease with depression (5) Dementia, vascular, with depression (6) Dementia, vascular, with delusions (7) Impulse control disorder ELEANOR BILLS MD Mar 08, 2017 20:53
[2017-03-09] MEDS: LORazepam 0.5 MG TABLET PO PRN ×3 (02:09→19:20)
[2017-03-09] MEDS: LEVOTHYROXINE 112 MCG TABLET PO SCH (05:40)
[2017-03-09 06:35] VITALS: BP 119/62
[2017-03-09] MEDS: POLYETHYLENE GLYCOL 3350 17 GM PACKET. PO SCH (07:15)
[2017-03-09] MEDS: DOCUSATE SODIUM 100 MG CAPSULE PO SCH ×2 (07:15→19:18)
[2017-03-09] MEDS: LITHIUM CARBONATE 150 MG CAPSULE. PO SCH (07:15)
[2017-03-09] MEDS: ENOXAPARIN 40 MG/0.4 ML DISP.SYRIN. SQ SCH (07:15)
[2017-03-09] MEDS: traZODone 50 MG TABLET. PO SCH ×3 (07:16→17:34)
[2017-03-09] MEDS: NAPROXEN 500 MG TABLET PO SCH ×2 (07:16→19:19)
[2017-03-09] MEDS: risperiDONE 0.5 MG TABLET. PO SCH ×3 (07:16→17:38)
[2017-03-09] MEDS: LITHIUM CARBONATE 300 MG TABLET PO SCH ×2 (09:36→19:19)
--- NOTE | 2017-03-09 10:08 | PN ---
DATE: 03/07/2017 This late entry for 03/07/2017 covers elements not covered in my initial note of 03/07/2017. SUBJECTIVE: I met with the patient the evening of 03/07/2016. The patient once again quite labile in her mood, yelling, screaming at times, calling people "bastards." She has been yelling to get out of bed. REVIEW OF SYSTEMS: Ambulation impaired, in a Broda chair. No CV, , pulmonary, eye, ENT system symptoms on review. She has vague somatic symptoms. Reliability poor. MENTAL STATUS EXAMINATION: Oriented to herself. Insight, judgment, recent and remote memory, attention, concentration, fund of knowledge poor, consistent with her diagnosis mentioned in my initial note. PLAN: Continue current psychotropics mentioned in my initial note. Check lithium level on 03/08/2017, adjust further to reach a therapeutic level. Reviewed drug interactions and risk/benefit ratio, favors no further change. ELEANOR BILLS MD DR: JAIME/meli JOB#: [id number] / [id number]
[2017-03-09 16:21] VITALS: BP 113/60
[2017-03-09] MEDS: MIRTAZAPINE 15 MG TABLET PO SCH (19:19)
[2017-03-09] MEDS: ATORVASTATIN CALCIUM 20 MG TABLET PO SCH (19:19)
[2017-03-09] MEDS: traZODone 100 MG TABLET. PO PRN (19:20)
--- NOTE | 2017-03-09 20:56 | PDOC ---
Exam Jeanmarie Demential Exam: Jeanmarie Note: Please also refer to the separate dictated note~for this date of service dictated separately.~Patient seen individually. Discussed the patient with Nursing staff reviewed the chart.~Reviewed interim history and current functioning. Reviewed vital signs,~Labs/ Radiology~and current medications noted below. Continue current treatment with the changes noted in the dictated addendum note Assessment: Vital Signs: Vital Signs Date Time Temp Pulse Resp B/P (MAP) Pulse Ox O2 Delivery O2 Flow Rate FiO2 03/09/17 16:21 99.0 96 16 113/60 (77) 94 03/06/17 16:14 Room Air I&O Intake and Output 03/10/17 07:00 Intake Total 664 ml Balance 664 ml Intake Oral 664 ml # Bowel Movements 2 Current Medications: Meds: Current Medications Lorazepam (Ativan) 0.5 mg 1X ONCE PO Last administered on 02/01/17 19:14; Start 02/01/17 at 19:15; Stop 02/01/17 at 19:16; Status DC Ceftriaxone Sodium (Rocephin Im) 1 gm 1X ONCE IM Last administered on 20:45; Start 02/01/17 at 20:30; Stop 02/01/17 at 20:31; Status DC Acetaminophen (Tylenol) 650 mg PRN Q6HRS PRN PO MILD PAIN / TEMP Last administered on 03/08/17 09:20; Start 02/01/17 at 23:15 Multi-Ingredient Ointment (Analgesic [place]) 1 rosita PRN QID PRN TP MUSCLE PAIN; Start 02/01/17 at 23:15 Al Hydroxide/Mg Hydroxide (Mylanta Plus Xs) 15 ml PRN AFTMEALHC PRN PO DYSPEPSIA; Start 02/01/17 at 23:15 Magnesium Hydroxide (Milk Of Magnesia) 2,400 mg PRN QHS PRN PO CONSTIPATION Last administered on 02/13/17 02:05; Start 02/01/17 at 23:15 Olanzapine (ZyPREXA) 5 mg HS PO Last administered on 02/13/17 19:31; Start at 21:00; Stop 02/14/17 at 18:51; Status DC Quetiapine Fumarate (SEROquel) 25 mg BID PO Last administered on 02/08/17 08: 42; Start 02/02/17 at 09:00; Stop 02/08/17 at 19:16; Status DC Sertraline HCl (Zoloft) 100 mg DAILY PO Last administered on 02/06/17 08:01; Start 02/02/17 at 09:00; Stop 02/06/17 at 18:56; Status DC Olanzapine (ZyPREXA) 5 mg 1X ONCE PO Last administered on 02/02/17 00:27; Start 02/02/17 at 00:30; Stop 02/02/17 at 00:31; Status DC Alprazolam (Xanax) 0.5 mg BID PO Last administered on 02/13/17 11:42; Start at 09:00; Stop 02/13/17 at 18:35; Status DC Lorazepam (Ativan) 0.5 mg PRN Q4HRS PRN PO ANXIETY / AGITATION Last administered on 02/02/17 14:57; Start 02/02/17 at 00:15; Stop 02/02/17 at 15:59 ; Status DC Levothyroxine Sodium (Synthroid) 112 mcg DAILY06 PO Last administered on 05:40; Start 02/02/17 at 10:00 Naproxen (Naprosyn) 500 mg BID PO Last administered on 03/09/17 19:19; Start 02/02/17 at 09:00 Atorvastatin Calcium (Lipitor) 40 mg QHS PO Last administered on 03/09/17 19: 19; Start 02/02/17 at 21:00 Mirtazapine (Remeron) 7.5 mg QHS PO Last administered on 02/20/17 23:08; Start 02/02/17 at 21:00; Stop 02/21/17 at 19:38; Status DC Olanzapine (ZyPREXA ZYDIS) 2.5 mg PRN Q2HR PRN PO PSYCHOSIS Last administered on 03/09/17 19:20; Start 02/02/17 at 15:45 Alprazolam (Xanax) 0.25 mg PRN Q2HR PRN PO ANXIETY / AGITATION Last administered on 02/13/17 16:33; Start 02/02/17 at 15:45; Stop 02/13/17 at 18:35 ; Status DC Docusate Sodium (Colace) 100 mg BID PO Last administered on 03/09/17 19:18; Start 02/02/17 at 21:00 Polyethylene Glycol (miraLAX) 17 gm DAILY PO Last administered on 03/09/17 07 :15; Start 02/03/17 at 09:00 Vitamin D (Vitamin D3) 50,000 unit WEEKLY PO Last administered on 03/03/17 08 :15; Start 02/10/17 at 09:00 Divalproex Sodium (Depakote Sprinkles) 125 mg TID@0900,1300,1700 PO Last administered on 02/06/17 16:46; Start 02/04/17 at 09:00; Stop 02/06/17 at 18:56 ; Status DC Divalproex Sodium (Depakote Sprinkles) 250 mg TID@0900,1300,1700 PO Last administered on 02/09/17 09:13; Start 02/07/17 at 09:00; Stop 02/09/17 at 13:03 ; Status DC Fluvoxamine Maleate (Luvox) 50 mg HS PO Last administered on 02/13/17 19:32; Start 02/06/17 at 21:00; Stop 02/14/17 at 18:51; Status DC Quetiapine Fumarate (SEROquel) 25 mg TID PO Last administered on 02/09/17 09: 16; Start 02/09/17 at 09:00; Stop 02/09/17 at 13:30; Status DC Divalproex Sodium (Depakote Sprinkles) 375 mg TID@0900,1300,1700 PO Last administered on 02/16/17 08:01; Start 02/09/17 at 13:00; Stop 02/16/17 at 19:13 ; Status DC Quetiapine Fumarate (SEROquel) 37.5 mg TID PO Last administered on 02/12/17 12 :55; Start 02/09/17 at 14:00; Stop 02/12/17 at 17:56; Status DC Olanzapine (ZyPREXA) 5 mg 1X ONCE PO Last administered on 02/12/17 11:57; Start 02/12/17 at 12:00; Stop 02/12/17 at 12:01; Status DC Quetiapine Fumarate (SEROquel) 50 mg TID PO Last administered on 02/19/17 13: 43; Start 02/12/17 at 21:00; Stop 02/19/17 at 18:29; Status DC Lorazepam (Ativan) 0.5 mg PRN Q2HR PRN PO ANXIETY / AGITATION Last administered on 03/09/17 19:20; Start 02/13/17 at 18:45 Lorazepam (Ativan) 0.5 mg BID PO Last administered on 02/16/17 08:04; Start at 21:00; Stop 02/17/17 at 17:37; Status DC Fluvoxamine Maleate (Luvox) 75 mg HS PO Last administered on 02/15/17 19:11; Start 02/14/17 at 21:00; Stop 02/16/17 at 22:01; Status DC Trazodone HCl (Desyrel) 12.5 mg TID PO Last administered on 02/14/17 19:39; Start 02/14/17 at 19:00; Stop 02/14/17 at 21:12; Status DC Trazodone HCl (Desyrel) 12.5 mg TIDWMEALS PO Last administered on 02/19/17 07: 57; Start 02/15/17 at 08:00; Stop 02/19/17 at 09:00; Status DC Fluvoxamine Maleate (Luvox) 100 mg HS PO Last administered on 02/27/17 19:14; Start 02/16/17 at 21:00; Stop 02/28/17 at 18:33; Status DC Lorazepam (Ativan) 0.25 mg BID PO Last administered on 02/18/17 20:06; Start 02/17/17 at 21:00; Stop 02/18/17 at 22:00; Status DC Trazodone HCl (Desyrel) 12.5 mg QID PO Last administered on 02/28/17 16:43; Start 02/19/17 at 09:00; Stop 02/28/17 at 18:19; Status DC Risperidone (RisperDAL) 0.125 mg TID@0900,1300,1700 PO Last administered on 17:31; Start 02/20/17 at 09:00; Stop 02/20/17 at 22:50; Status DC Mirtazapine (Remeron) 15 mg QHS PO Last administered on 03/09/17 19:19; Start 02/21/17 at 21:00 Trazodone HCl (Desyrel) 50 mg PRN QHS PRN PO INSOMNIA, MAY REPEAT X1 Last administered on 02/23/17 00:34; Start 02/20/17 at 22:45; Stop 02/23/17 at 10:59 ; Status DC Risperidone (RisperDAL) 0.25 mg TID@0900,1300,1700 PO Last administered on 02/24 17:20; Start 02/21/17 at 09:00; Stop 02/24/17 at 19:06; Status DC Trazodone HCl (Desyrel) 100 mg PRN QHS PRN PO INSOMNIA, MAY REPEAT X1 Last administered on 03/09/17 19:20; Start 02/23/17 at 11:15 Risperidone (RisperDAL) 0.375 mg TID@0900,1300,1700 PO Last administered on 16:26; Start 02/25/17 at 09:00; Stop 02/26/17 at 18:57; Status DC Carbamazepine (TEGretol) 200 mg QHS PO Last administered on 02/27/17 19:14; Start 02/24/17 at 21:00; Stop 02/28/17 at 18:19; Status DC Enoxaparin Sodium (Lovenox) 40 mg Q24H SQ Last administered on 03/09/17 07:15 ; Start 02/25/17 at 14:00 Cefpodoxime Proxetil (Vantin) 100 mg BID PO Last administered on 03/06/17 08: 37; Start 02/25/17 at 21:00; Stop 03/06/17 at 12:55; Status DC Risperidone (RisperDAL) 0.5 mg TID@0900,1300,1700 PO Last administered on 03/09 17:38; Start 02/27/17 at 09:00 Carbamazepine (TEGretol) 150 mg BID PO Last administered on 03/03/17 08:14; Start 02/28/17 at 21:00; Stop 03/03/17 at 18:20; Status DC Trazodone HCl (Desyrel) 25 mg TID@0900,1300,1700 PO Last administered on 17:34; Start 03/01/17 at 09:00; Stop 03/09/17 at 18:31; Status DC Fluvoxamine Maleate (Luvox) 150 mg HS PO Last administered on 03/09/17 19:19 ; Start 02/28/17 at 21:00 [place] Carbonate 300 mg QHS PO Last administered on 03/09/17 19:19; Start 03/02/17 at 21:00 Influenza Virus Vaccine Quadrival (Fluarix Quad [id number] Syringe) 0.5 ml ONCE ONCE VAX IM Last administered on 03/04/17 09:57; Start 03/04/17 at 09:00; Stop 03/04/17 at 09:01; Status DC [place] Carbonate 150 mg DAILY PO Last administered on 03/09/17 07:15; Start 03/06/17 at 09:00 [place] Carbonate 75 mg DAILY PO Last administered on 03/09/17 09:36; Start 03/09/17 at 09:00 Trazodone HCl (Desyrel) 25 mg BID@1300,1700 PO ; Start 03/10/17 at 13:00 Trazodone HCl (Desyrel) 50 mg DAILY PO ; Start 03/10/17 at 09:00 Active Scripts Active Reported Atorvastatin Calcium 40 Mg Tablet 40 Mg PO QHS Naproxen 500 Mg Tablet 500 Mg PO BID Lorazepam 0.5 Mg Tablet 0.5 Mg PO PRN Q4HRS PRN Seroquel (Quetiapine Fumarate) 25 Mg Tablet 25 Mg PO BID Zoloft (Sertraline Hcl) 100 Mg Tablet 100 Mg PO DAILY Levothyroxine Sodium 112 Mcg Tablet 112 Mcg PO DAILYAC Olanzapine 5 Mg Tablet 5 Mg PO HS Alprazolam 0.5 Mg Tablet 0.5 Mg PO BID Diagnosis: Problems: (1) Anxiety disorder (2) Bipolar 1 disorder, mixed, moderate (3) Dementia in Alzheimer's disease with delusions (4) Dementia in Alzheimer's disease with depression (5) Dementia, vascular, with depression (6) Dementia, vascular, with delusions (7) Impulse control disorder ELEANOR BILLS MD Mar 09, 2017 20:56
[2017-03-10] MEDS: LEVOTHYROXINE 112 MCG TABLET PO SCH (05:03)
[2017-03-10 06:36] VITALS: BP 120/63
[2017-03-10] MEDS: DOCUSATE SODIUM 100 MG CAPSULE PO SCH ×2 (08:05→19:23)
[2017-03-10] MEDS: CHOLECALCIFEROL (VITAMIN D3) 50,000 UNIT CAPSULE PO SCH (08:05)
[2017-03-10] MEDS: NAPROXEN 500 MG TABLET PO SCH ×2 (08:05→19:24)
[2017-03-10] MEDS: risperiDONE 0.5 MG TABLET. PO SCH ×3 (08:05→17:19)
[2017-03-10] MEDS: LITHIUM CARBONATE 300 MG TABLET PO SCH ×2 (08:05→19:23)
[2017-03-10] MEDS: LITHIUM CARBONATE 150 MG CAPSULE. PO SCH (08:05)
[2017-03-10] MEDS: POLYETHYLENE GLYCOL 3350 17 GM PACKET. PO SCH (08:06)
[2017-03-10] MEDS ORDERED: traZODone 50 MG TABLET. PO SCH (09:00)
--- NOTE | 2017-03-10 09:28 | PN ---
DATE: 03/08/2017 PSYCHIATRIC PROGRESS NOTE This late entry 03/08/2017 covers elements not covered in my initial note of 03/08/2017. SUBJECTIVE: I met with the patient the evening of 03/08/2017. The patient had a fairly problematic day with yelling, screaming. [place] level is 0.6. REVIEW OF SYSTEMS: No CV, , pulmonary, eye, ENT system symptoms on review. Reliability poor. Ambulation impaired, in a Broda chair. MENTAL STATUS EXAM: Oriented to herself. Insight, judgment, recent and remote memory, attention, concentration, fund of knowledge poor, consistent with her diagnosis mentioned in my initial note. PLAN: Increase lithium carbonate by 75 mg in the morning for total of 225 mg in the morning and 300 mg at bedtime. Check CBC, CMP, and lithium level again in 3 days since current level is 0.6. Maintain the rest of the psychotropics mentioned in my initial note. Review drug interactions, risk/benefit ratio favors no further change. MAN Aden BILLS MD DR: JAIME/meli JOB#: [id number] / [id number]
[2017-03-10 10:39] LABS: ALBUMIN 3.5 g/dL (3.4-5.0); ALBUMIN/GLOBULIN RATIO 1.3 (1.0-1.7); CALCIUM 8.8 mg/dL (8.5-10.1); CREATININE 0.6 mg/dL (0.6-1.0); GFR 99.7; MAGNESIUM 2.1 mg/dL (1.8-2.4); POTASSIUM 4.5 mmol/L (3.5-5.1); TOTAL BILIRUBIN 0.3 mg/dL (0.2-1.0); TOTAL PROTEIN 6.2 g/dL (6.4-8.2)
[2017-03-10] MEDS: traZODone 50 MG TABLET. PO SCH ×2 (12:18→17:19)
[2017-03-10] MEDS: ENOXAPARIN 40 MG/0.4 ML DISP.SYRIN. SQ SCH (13:01)
[2017-03-10 16:33] VITALS: BP 126/72
[2017-03-10] MEDS: ATORVASTATIN CALCIUM 20 MG TABLET PO SCH (19:23)
[2017-03-10] MEDS: MIRTAZAPINE 15 MG TABLET PO SCH (19:24)
[2017-03-10] MEDS: traZODone 100 MG TABLET. PO PRN ×2 (19:25→23:34)
[2017-03-10] MEDS: LORazepam 0.5 MG TABLET PO PRN ×2 (19:25→23:03)
--- NOTE | 2017-03-10 20:55 | PDOC ---
Exam Jeanmarie Demential Exam: Jeanmarie Note: Please also refer to the separate dictated note~for this date of service dictated separately.~Patient seen individually. Discussed the patient with Nursing staff reviewed the chart.~Reviewed interim history and current functioning. Reviewed vital signs,~Labs/ Radiology~and current medications noted below. Continue current treatment with the changes noted in the dictated addendum note Assessment: Vital Signs: Vital Signs Date Time Temp Pulse Resp B/P (MAP) Pulse Ox O2 Delivery O2 Flow Rate FiO2 03/10/17 16:33 97.9 78 18 126/72 (90) 97 03/06/17 16:14 Room Air I&O Intake and Output 03/11/17 07:00 Intake Total 840 ml Balance 840 ml Intake Oral 840 ml # Bowel Movements 1 Labs: Laboratory Tests Test 03/10/17 10:13 Sodium Level 141 mmol/L (136-145) Potassium Level 4.5 mmol/L (3.5-5.1) Chloride Level 106 mmol/L (98-107) Carbon Dioxide Level 30 mmol/L (21-32) Anion Gap 5 (6-14) L Blood Urea Nitrogen 27 mg/dL (7-20) H Creatinine 0.6 mg/dL (0.6-1.0) Estimated GFR (Cockcroft-Gault) 99.7 BUN/Creatinine Ratio 45 (6-20) H Glucose Level 93 mg/dL (70-99) Calcium Level 8.8 mg/dL (8.5-10.1) Magnesium Level 2.1 mg/dL (1.8-2.4) Total Bilirubin 0.3 mg/dL (0.2-1.0) Aspartate Amino Transferase (AST) 64 U/L (15-37) H Alanine Aminotransferase (ALT) 137 U/L (14-59) H Alkaline Phosphatase 140 U/L (46-116) H Total Protein 6.2 g/dL (6.4-8.2) L Albumin 3.5 g/dL (3.4-5.0) Albumin/Globulin Ratio 1.3 (1.0-1.7) Current Medications: Meds: Current Medications Lorazepam (Ativan) 0.5 mg 1X ONCE PO Last administered on 02/01/17t 19:14; Start 02/01/17 at 19:15; Stop 02/01/17 at 19:16; Status DC Ceftriaxone Sodium (Rocephin Im) 1 gm 1X ONCE IM Last administered on 20:45; Start 02/01/17 at 20:30; Stop 02/01/17 at 20:31; Status DC Acetaminophen (Tylenol) 650 mg PRN Q6HRS PRN PO MILD PAIN / TEMP Last administered on 03/08/17 09:20; Start 02/01/17 at 23:15 Multi-Ingredient Ointment (Analgesic [place]) 1 rosita PRN QID PRN TP MUSCLE PAIN; Start 02/01/17 at 23:15 Al Hydroxide/Mg Hydroxide (Mylanta Plus Xs) 15 ml PRN AFTMEALHC PRN PO DYSPEPSIA; Start 02/01/17 at 23:15 Magnesium Hydroxide (Milk Of Magnesia) 2,400 mg PRN QHS PRN PO CONSTIPATION Last administered on 02/13/17 02:05; Start 02/01/17 at 23:15 Olanzapine (ZyPREXA) 5 mg HS PO Last administered on 02/13/17 19:31; Start at 21:00; Stop 02/14/17 at 18:51; Status DC Quetiapine Fumarate (SEROquel) 25 mg BID PO Last administered on 02/08/17 08: 42; Start 02/02/17 at 09:00; Stop 02/08/17 at 19:16; Status DC Sertraline HCl (Zoloft) 100 mg DAILY PO Last administered on 02/06/17 08:01; Start 02/02/17 at 09:00; Stop 02/06/17 at 18:56; Status DC Olanzapine (ZyPREXA) 5 mg 1X ONCE PO Last administered on 02/02/17 00:27; Start 02/02/17 at 00:30; Stop 02/02/17 at 00:31; Status DC Alprazolam (Xanax) 0.5 mg BID PO Last administered on 02/13/17 11:42; Start at 09:00; Stop 02/13/17 at 18:35; Status DC Lorazepam (Ativan) 0.5 mg PRN Q4HRS PRN PO ANXIETY / AGITATION Last administered on 02/02/17 14:57; Start 02/02/17 at 00:15; Stop 02/02/17 at 15:59 ; Status DC Levothyroxine Sodium (Synthroid) 112 mcg DAILY06 PO Last administered on 05:03; Start 02/02/17 at 10:00 Naproxen (Naprosyn) 500 mg BID PO Last administered on 03/10/17 19:24; Start 02/02/17 at 09:00 Atorvastatin Calcium (Lipitor) 40 mg QHS PO Last administered on 03/10/17 19: 23; Start 02/02/17 at 21:00 Mirtazapine (Remeron) 7.5 mg QHS PO Last administered on 02/20/17 23:08; Start 02/02/17 at 21:00; Stop 02/21/17 at 19:38; Status DC Olanzapine (ZyPREXA ZYDIS) 2.5 mg PRN Q2HR PRN PO PSYCHOSIS Last administered on 03/10/17 19:24; Start 02/02/17 at 15:45 Alprazolam (Xanax) 0.25 mg PRN Q2HR PRN PO ANXIETY / AGITATION Last administered on 02/13/17 16:33; Start 02/02/17 at 15:45; Stop 02/13/17 at 18:35 ; Status DC Docusate Sodium (Colace) 100 mg BID PO Last administered on 03/10/17 19:23; Start 02/02/17 at 21:00 Polyethylene Glycol (miraLAX) 17 gm DAILY PO Last administered on 03/10/17 08 :06; Start 02/03/17 at 09:00 Vitamin D (Vitamin D3) 50,000 unit WEEKLY PO Last administered on 03/10/17 08 :05; Start 02/10/17 at 09:00 Divalproex Sodium (Depakote Sprinkles) 125 mg TID@0900,1300,1700 PO Last administered on 02/06/17 16:46; Start 02/04/17 at 09:00; Stop 02/06/17 at 18:56 ; Status DC Divalproex Sodium (Depakote Sprinkles) 250 mg TID@0900,1300,1700 PO Last administered on 02/09/17 09:13; Start 02/07/17 at 09:00; Stop 02/09/17 at 13:03 ; Status DC Fluvoxamine Maleate (Luvox) 50 mg HS PO Last administered on 02/13/17 19:32; Start 02/06/17 at 21:00; Stop 02/14/17 at 18:51; Status DC Quetiapine Fumarate (SEROquel) 25 mg TID PO Last administered on 02/09/17 09: 16; Start 02/09/17 at 09:00; Stop 02/09/17 at 13:30; Status DC Divalproex Sodium (Depakote Sprinkles) 375 mg TID@0900,1300,1700 PO Last administered on 02/16/17 08:01; Start 02/09/17 at 13:00; Stop 02/16/17 at 19:13 ; Status DC Quetiapine Fumarate (SEROquel) 37.5 mg TID PO Last administered on 02/12/17 12 :55; Start 02/09/17 at 14:00; Stop 02/12/17 at 17:56; Status DC Olanzapine (ZyPREXA) 5 mg 1X ONCE PO Last administered on 02/12/17 11:57; Start 02/12/17 at 12:00; Stop 02/12/17 at 12:01; Status DC Quetiapine Fumarate (SEROquel) 50 mg TID PO Last administered on 02/19/17 13: 43; Start 02/12/17 at 21:00; Stop 02/19/17 at 18:29; Status DC Lorazepam (Ativan) 0.5 mg PRN Q2HR PRN PO ANXIETY / AGITATION Last administered on 03/10/17 19:25; Start 02/13/17 at 18:45 Lorazepam (Ativan) 0.5 mg BID PO Last administered on 02/16/17 08:04; Start at 21:00; Stop 02/17/17 at 17:37; Status DC Fluvoxamine Maleate (Luvox) 75 mg HS PO Last administered on 02/15/17 19:11; Start 02/14/17 at 21:00; Stop 02/16/17 at 22:01; Status DC Trazodone HCl (Desyrel) 12.5 mg TID PO Last administered on 02/14/17 19:39; Start 02/14/17 at 19:00; Stop 02/14/17 at 21:12; Status DC Trazodone HCl (Desyrel) 12.5 mg TIDWMEALS PO Last administered on 02/19/17 07: 57; Start 02/15/17 at 08:00; Stop 02/19/17 at 09:00; Status DC Fluvoxamine Maleate (Luvox) 100 mg HS PO Last administered on 02/27/17 19:14; Start 02/16/17 at 21:00; Stop 02/28/17 at 18:33; Status DC Lorazepam (Ativan) 0.25 mg BID PO Last administered on 02/18/17 20:06; Start 02/17/17 at 21:00; Stop 02/18/17 at 22:00; Status DC Trazodone HCl (Desyrel) 12.5 mg QID PO Last administered on 02/28/17 16:43; Start 02/19/17 at 09:00; Stop 02/28/17 at 18:19; Status DC Risperidone (RisperDAL) 0.125 mg TID@0900,1300,1700 PO Last administered on 17:31; Start 02/20/17 at 09:00; Stop 02/20/17 at 22:50; Status DC Mirtazapine (Remeron) 15 mg QHS PO Last administered on 03/10/17 19:24; Start 02/21/17 at 21:00 Trazodone HCl (Desyrel) 50 mg PRN QHS PRN PO INSOMNIA, MAY REPEAT X1 Last administered on 02/23/17 00:34; Start 02/20/17 at 22:45; Stop 02/23/17 at 10:59 ; Status DC Risperidone (RisperDAL) 0.25 mg TID@0900,1300,1700 PO Last administered on 02/24 17:20; Start 02/21/17 at 09:00; Stop 02/24/17 at 19:06; Status DC Trazodone HCl (Desyrel) 100 mg PRN QHS PRN PO INSOMNIA, MAY REPEAT X1 Last administered on 03/10/17 19:25; Start 02/23/17 at 11:15 Risperidone (RisperDAL) 0.375 mg TID@0900,1300,1700 PO Last administered on 16:26; Start 02/25/17 at 09:00; Stop 02/26/17 at 18:57; Status DC Carbamazepine (TEGretol) 200 mg QHS PO Last administered on 02/27/17 19:14; Start 02/24/17 at 21:00; Stop 02/28/17 at 18:19; Status DC Enoxaparin Sodium (Lovenox) 40 mg Q24H SQ Last administered on 03/10/17 13:01 ; Start 02/25/17 at 14:00 Cefpodoxime Proxetil (Vantin) 100 mg BID PO Last administered on 03/06/17 08: 37; Start 02/25/17 at 21:00; Stop 03/06/17 at 12:55; Status DC Risperidone (RisperDAL) 0.5 mg TID@0900,1300,1700 PO Last administered on 03/10 17:19; Start 02/27/17 at 09:00 Carbamazepine (TEGretol) 150 mg BID PO Last administered on 03/03/17 08:14; Start 02/28/17 at 21:00; Stop 03/03/17 at 18:20; Status DC Trazodone HCl (Desyrel) 25 mg TID@0900,1300,1700 PO Last administered on 17:34; Start 03/01/17 at 09:00; Stop 03/09/17 at 18:31; Status DC Fluvoxamine Maleate (Luvox) 150 mg HS PO Last administered on 03/10/17 19:24 ; Start 02/28/17 at 21:00 [place] Carbonate 300 mg QHS PO Last administered on 03/10/17 19:23; Start 03/02/17 at 21:00 Influenza Virus Vaccine Quadrival (Fluarix Quad [id number] Syringe) 0.5 ml ONCE ONCE VAX IM Last administered on 03/04/17 09:57; Start 03/04/17 at 09:00; Stop 03/04/17 at 09:01; Status DC [place] Carbonate 150 mg DAILY PO Last administered on 03/10/17 08:05; Start 03/06/17 at 09:00 [place] Carbonate 75 mg DAILY PO Last administered on 03/10/17 08:05; Start 03/09/17 at 09:00 Trazodone HCl (Desyrel) 25 mg BID@1300,1700 PO Last administered on 03/10/17 17:19; Start 03/10/17 at 13:00; Stop 03/10/17 at 19:29; Status DC Trazodone HCl (Desyrel) 50 mg DAILY PO ; Start 03/10/17 at 09:00; Stop at 19:29; Status DC Magnesium Oxide (Magnesium Oxide) 400 mg DAILY PO ; Start 03/11/17 at 09:00 Trazodone HCl (Desyrel) 50 mg BID94 PO ; Start 03/11/17 at 09:00 Trazodone HCl (Desyrel) 25 mg DAILYWLUN PO ; Start 03/11/17 at 12:00 Active Scripts Active Reported Atorvastatin Calcium 40 Mg Tablet 40 Mg PO QHS Naproxen 500 Mg Tablet 500 Mg PO BID Lorazepam 0.5 Mg Tablet 0.5 Mg PO PRN Q4HRS PRN Seroquel (Quetiapine Fumarate) 25 Mg Tablet 25 Mg PO BID Zoloft (Sertraline Hcl) 100 Mg Tablet 100 Mg PO DAILY Levothyroxine Sodium 112 Mcg Tablet 112 Mcg PO DAILYAC Olanzapine 5 Mg Tablet 5 Mg PO HS Alprazolam 0.5 Mg Tablet 0.5 Mg PO BID Diagnosis: Problems: (1) Anxiety disorder (2) Bipolar 1 disorder, mixed, moderate (3) Dementia in Alzheimer's disease with delusions (4) Dementia in Alzheimer's disease with depression (5) Dementia, vascular, with depression (6) Dementia, vascular, with delusions (7) Impulse control disorder ELEANOR BILLS MD Mar 10, 2017 20:55
--- NOTE | 2017-03-11 03:10 | PN ---
DATE: 03/09/2017 PSYCHIATRIC PROGRESS NOTE This is a late entry for 03/09/2017 covers the elements not covered in my initial note of 03/09/2017. SUBJECTIVE: The patient was staffed at a treatment team meeting with the entire team the morning of 03/09/2017, seen individually evening of 03/09/2017. The patient continues to yell constantly per nursing report, at times she appears psychotic "get her off my back, she is pulling my hair", and there is no one there. She does do better if someone is sitting with her, holding her hand or just by the mere presence. REVIEW OF SYSTEMS: Ambulation impaired in Broda chair. No CV, , pulmonary, eye, ENT system symptoms on review. She has vague somatic symptoms. MENTAL STATUS EXAM: Oriented to herself. Insight, judgment, recent and remote memory, attention, concentration, fund of knowledge poor, consistent with her diagnosis mentioned in my initial note. PLAN: The patient is currently on trazodone 25 mg t.i.d. We will increase the morning dosage to 50 mg. Continue 25 mg for the second two dosages. Maintain rest of the psychotropics. [place] was increased. Check labs level with a plan to reach therapeutic level and then adjust further. Review drug interactions. Risk/benefit ratio favors no further change. ELEANOR BILLS MD DR: JAIME/meli JOB#: [id number] / [id number]
[2017-03-11] MEDS: LORazepam 0.5 MG TABLET PO PRN ×2 (04:23→19:10)
[2017-03-11 05:58] VITALS: BP 135/76
[2017-03-11] MEDS: LEVOTHYROXINE 112 MCG TABLET PO SCH (06:15)
[2017-03-11] MEDS: NAPROXEN 500 MG TABLET PO SCH ×2 (11:54→19:08)
[2017-03-11] MEDS: ENOXAPARIN 40 MG/0.4 ML DISP.SYRIN. SQ SCH (11:55)
[2017-03-11] MEDS: risperiDONE 0.5 MG TABLET. PO SCH ×3 (11:55→18:29)
[2017-03-11] MEDS: DOCUSATE SODIUM 100 MG CAPSULE PO SCH ×2 (11:56→19:07)
[2017-03-11] MEDS: POLYETHYLENE GLYCOL 3350 17 GM PACKET. PO SCH (11:56)
[2017-03-11] MEDS: LITHIUM CARBONATE 300 MG TABLET PO SCH ×2 (11:57→19:07)
[2017-03-11] MEDS: LITHIUM CARBONATE 150 MG CAPSULE. PO SCH (11:57)
[2017-03-11] MEDS: traZODone 50 MG TABLET. PO SCH ×3 (12:00→18:29)
[2017-03-11] MEDS: MAGNESIUM OXIDE 400 MG TABLET PO SCH (12:00)
[2017-03-11 16:19] VITALS: BP 154/77
[2017-03-11] MEDS: ATORVASTATIN CALCIUM 20 MG TABLET PO SCH (19:07)
[2017-03-11] MEDS: MIRTAZAPINE 15 MG TABLET PO SCH (19:08)
--- NOTE | 2017-03-11 21:58 | PDOC ---
Exam Jeanmarie Demential Exam: Jeanmarie Note: Please also refer to the separate dictated note~for this date of service dictated separately.~Patient seen individually. Discussed the patient with Nursing staff reviewed the chart.~Reviewed interim history and current functioning. Reviewed vital signs,~Labs/ Radiology~and current medications noted below. Continue current treatment with the changes noted in the dictated addendum note Assessment: Vital Signs: Vital Signs Date Time Temp Pulse Resp B/P (MAP) Pulse Ox O2 Delivery O2 Flow Rate FiO2 03/11/17 16:19 97.8 81 17 154/77 (102) 96 03/11/17 05:58 Room Air I&O Intake and Output 03/12/17 07:00 Intake Total 480 ml Balance 480 ml Intake Oral 480 ml Current Medications: Meds: Current Medications Lorazepam (Ativan) 0.5 mg 1X ONCE PO Last administered on 02/01/17 19:14; Start 02/01/17 at 19:15; Stop 02/01/17 at 19:16; Status DC Ceftriaxone Sodium (Rocephin Im) 1 gm 1X ONCE IM Last administered on 20:45; Start 02/01/17 at 20:30; Stop 02/01/17 at 20:31; Status DC Acetaminophen (Tylenol) 650 mg PRN Q6HRS PRN PO MILD PAIN / TEMP Last administered on 03/08/17 09:20; Start 02/01/17 at 23:15 Multi-Ingredient Ointment (Analgesic Schneider) 1 rosita PRN QID PRN TP MUSCLE PAIN; Start 02/01/17 at 23:15 Al Hydroxide/Mg Hydroxide (Mylanta Plus Xs) 15 ml PRN AFTMEALHC PRN PO DYSPEPSIA; Start 02/01/17 at 23:15 Magnesium Hydroxide (Milk Of Magnesia) 2,400 mg PRN QHS PRN PO CONSTIPATION Last administered on 02/13/17 02:05; Start 02/01/17 at 23:15 Olanzapine (ZyPREXA) 5 mg HS PO Last administered on 02/13/17 19:31; Start at 21:00; Stop 02/14/17 at 18:51; Status DC Quetiapine Fumarate (SEROquel) 25 mg BID PO Last administered on 02/08/17 08: 42; Start 02/02/17 at 09:00; Stop 02/08/17 at 19:16; Status DC Sertraline HCl (Zoloft) 100 mg DAILY PO Last administered on 02/06/17 08:01; Start 02/02/17 at 09:00; Stop 02/06/17 at 18:56; Status DC Olanzapine (ZyPREXA) 5 mg 1X ONCE PO Last administered on 02/02/17 00:27; Start 02/02/17 at 00:30; Stop 02/02/17 at 00:31; Status DC Alprazolam (Xanax) 0.5 mg BID PO Last administered on 02/13/17 11:42; Start at 09:00; Stop 02/13/17 at 18:35; Status DC Lorazepam (Ativan) 0.5 mg PRN Q4HRS PRN PO ANXIETY / AGITATION Last administered on 02/02/17 14:57; Start 02/02/17 at 00:15; Stop 02/02/17 at 15:59 ; Status DC Levothyroxine Sodium (Synthroid) 112 mcg DAILY06 PO Last administered on 06:15; Start 02/02/17 at 10:00 Naproxen (Naprosyn) 500 mg BID PO Last administered on 03/11/17 19:08; Start 02/02/17 at 09:00 Atorvastatin Calcium (Lipitor) 40 mg QHS PO Last administered on 03/11/17 19: 07; Start 02/02/17 at 21:00 Mirtazapine (Remeron) 7.5 mg QHS PO Last administered on 02/20/17 23:08; Start 02/02/17 at 21:00; Stop 02/21/17 at 19:38; Status DC Olanzapine (ZyPREXA ZYDIS) 2.5 mg PRN Q2HR PRN PO PSYCHOSIS Last administered on 03/11/17 19:10; Start 02/02/17 at 15:45 Alprazolam (Xanax) 0.25 mg PRN Q2HR PRN PO ANXIETY / AGITATION Last administered on 02/13/17 16:33; Start 02/02/17 at 15:45; Stop 02/13/17 at 18:35 ; Status DC Docusate Sodium (Colace) 100 mg BID PO Last administered on 03/11/17 19:07; Start 02/02/17 at 21:00 Polyethylene Glycol (miraLAX) 17 gm DAILY PO Last administered on 03/11/17 11 :56; Start 02/03/17 at 09:00 Vitamin D (Vitamin D3) 50,000 unit WEEKLY PO Last administered on 03/10/17 08 :05; Start 02/10/17 at 09:00 Divalproex Sodium (Depakote Sprinkles) 125 mg TID@0900,1300,1700 PO Last administered on 02/06/17 16:46; Start 02/04/17 at 09:00; Stop 02/06/17 at 18:56 ; Status DC Divalproex Sodium (Depakote Sprinkles) 250 mg TID@0900,1300,1700 PO Last administered on 02/09/17 09:13; Start 02/07/17 at 09:00; Stop 02/09/17 at 13:03 ; Status DC Fluvoxamine Maleate (Luvox) 50 mg HS PO Last administered on 02/13/17 19:32; Start 02/06/17 at 21:00; Stop 02/14/17 at 18:51; Status DC Quetiapine Fumarate (SEROquel) 25 mg TID PO Last administered on 02/09/17 09: 16; Start 02/09/17 at 09:00; Stop 02/09/17 at 13:30; Status DC Divalproex Sodium (Depakote Sprinkles) 375 mg TID@0900,1300,1700 PO Last administered on 02/16/17 08:01; Start 02/09/17 at 13:00; Stop 02/16/17 at 19:13 ; Status DC Quetiapine Fumarate (SEROquel) 37.5 mg TID PO Last administered on 02/12/17 12 :55; Start 02/09/17 at 14:00; Stop 02/12/17 at 17:56; Status DC Olanzapine (ZyPREXA) 5 mg 1X ONCE PO Last administered on 02/12/17 11:57; Start 02/12/17 at 12:00; Stop 02/12/17 at 12:01; Status DC Quetiapine Fumarate (SEROquel) 50 mg TID PO Last administered on 02/19/17 13: 43; Start 02/12/17 at 21:00; Stop 02/19/17 at 18:29; Status DC Lorazepam (Ativan) 0.5 mg PRN Q2HR PRN PO ANXIETY / AGITATION Last administered on 03/11/17 19:10; Start 02/13/17 at 18:45 Lorazepam (Ativan) 0.5 mg BID PO Last administered on 02/16/17 08:04; Start at 21:00; Stop 02/17/17 at 17:37; Status DC Fluvoxamine Maleate (Luvox) 75 mg HS PO Last administered on 02/15/17 19:11; Start 02/14/17 at 21:00; Stop 02/16/17 at 22:01; Status DC Trazodone HCl (Desyrel) 12.5 mg TID PO Last administered on 02/14/17 19:39; Start 02/14/17 at 19:00; Stop 02/14/17 at 21:12; Status DC Trazodone HCl (Desyrel) 12.5 mg TIDWMEALS PO Last administered on 02/19/17 07: 57; Start 02/15/17 at 08:00; Stop 02/19/17 at 09:00; Status DC Fluvoxamine Maleate (Luvox) 100 mg HS PO Last administered on 02/27/17 19:14; Start 02/16/17 at 21:00; Stop 02/28/17 at 18:33; Status DC Lorazepam (Ativan) 0.25 mg BID PO Last administered on 02/18/17 20:06; Start 02/17/17 at 21:00; Stop 02/18/17 at 22:00; Status DC Trazodone HCl (Desyrel) 12.5 mg QID PO Last administered on 02/28/17 16:43; Start 02/19/17 at 09:00; Stop 02/28/17 at 18:19; Status DC Risperidone (RisperDAL) 0.125 mg TID@0900,1300,1700 PO Last administered on 17:31; Start 02/20/17 at 09:00; Stop 02/20/17 at 22:50; Status DC Mirtazapine (Remeron) 15 mg QHS PO Last administered on 03/11/17 19:08; Start 02/21/17 at 21:00 Trazodone HCl (Desyrel) 50 mg PRN QHS PRN PO INSOMNIA, MAY REPEAT X1 Last administered on 02/23/17 00:34; Start 02/20/17 at 22:45; Stop 02/23/17 at 10:59 ; Status DC Risperidone (RisperDAL) 0.25 mg TID@0900,1300,1700 PO Last administered on 02/24 17:20; Start 02/21/17 at 09:00; Stop 02/24/17 at 19:06; Status DC Trazodone HCl (Desyrel) 100 mg PRN QHS PRN PO INSOMNIA, MAY REPEAT X1 Last administered on 03/10/17 23:34; Start 02/23/17 at 11:15 Risperidone (RisperDAL) 0.375 mg TID@0900,1300,1700 PO Last administered on 16:26; Start 02/25/17 at 09:00; Stop 02/26/17 at 18:57; Status DC Carbamazepine (TEGretol) 200 mg QHS PO Last administered on 02/27/17 19:14; Start 02/24/17 at 21:00; Stop 02/28/17 at 18:19; Status DC Enoxaparin Sodium (Lovenox) 40 mg Q24H SQ Last administered on 03/11/17 11:55 ; Start 02/25/17 at 14:00 Cefpodoxime Proxetil (Vantin) 100 mg BID PO Last administered on 03/06/17 08: 37; Start 02/25/17 at 21:00; Stop 03/06/17 at 12:55; Status DC Risperidone (RisperDAL) 0.5 mg TID@0900,1300,1700 PO Last administered on 03/11 18:29; Start 02/27/17 at 09:00 Carbamazepine (TEGretol) 150 mg BID PO Last administered on 03/03/17 08:14; Start 02/28/17 at 21:00; Stop 03/03/17 at 18:20; Status DC Trazodone HCl (Desyrel) 25 mg TID@0900,1300,1700 PO Last administered on 17:34; Start 03/01/17 at 09:00; Stop 03/09/17 at 18:31; Status DC Fluvoxamine Maleate (Luvox) 150 mg HS PO Last administered on 03/11/17 19:07 ; Start 02/28/17 at 21:00 [place] Carbonate 300 mg QHS PO Last administered on 03/11/17 19:07; Start 03/02/17 at 21:00 Influenza Virus Vaccine Quadrival (Fluarix Quad [id number] Syringe) 0.5 ml ONCE ONCE VAX IM Last administered on 03/04/17 09:57; Start 03/04/17 at 09:00; Stop 03/04/17 at 09:01; Status DC [place] Carbonate 150 mg DAILY PO Last administered on 03/11/17 11:57; Start 03/06/17 at 09:00 [place] Carbonate 75 mg DAILY PO Last administered on 03/11/17 11:57; Start 03/09/17 at 09:00 Trazodone HCl (Desyrel) 25 mg BID@1300,1700 PO Last administered on 03/10/17 17:19; Start 03/10/17 at 13:00; Stop 03/10/17 at 19:29; Status DC Trazodone HCl (Desyrel) 50 mg DAILY PO ; Start 03/10/17 at 09:00; Stop at 19:29; Status DC Magnesium Oxide (Magnesium Oxide) 400 mg DAILY PO Last administered on 12:00; Start 03/11/17 at 09:00 Trazodone HCl (Desyrel) 50 mg BID94 PO Last administered on 03/11/17 18:29; Start 03/11/17 at 09:00 Trazodone HCl (Desyrel) 25 mg DAILYWLUN PO Last administered on 03/11/17 14: 36; Start 03/11/17 at 12:00 Active Scripts Active Reported Atorvastatin Calcium 40 Mg Tablet 40 Mg PO QHS Naproxen 500 Mg Tablet 500 Mg PO BID Lorazepam 0.5 Mg Tablet 0.5 Mg PO PRN Q4HRS PRN Seroquel (Quetiapine Fumarate) 25 Mg Tablet 25 Mg PO BID Zoloft (Sertraline Hcl) 100 Mg Tablet 100 Mg PO DAILY Levothyroxine Sodium 112 Mcg Tablet 112 Mcg PO DAILYAC Olanzapine 5 Mg Tablet 5 Mg PO HS Alprazolam 0.5 Mg Tablet 0.5 Mg PO BID Diagnosis: Problems: (1) Anxiety disorder (2) Bipolar 1 disorder, mixed, moderate (3) Dementia in Alzheimer's disease with delusions (4) Dementia in Alzheimer's disease with depression (5) Dementia, vascular, with depression (6) Dementia, vascular, with delusions (7) Impulse control disorder ELEANOR BILLS MD Mar 11, 2017 21:58
[2017-03-12] MEDS: LORazepam 0.5 MG TABLET PO PRN (01:23)
[2017-03-12] MEDS: traZODone 100 MG TABLET. PO PRN ×2 (01:23→22:56)
[2017-03-12 06:04] VITALS: BP 126/77
[2017-03-12] MEDS: NAPROXEN 500 MG TABLET PO SCH ×2 (07:44→19:20)
[2017-03-12] MEDS: LEVOTHYROXINE 112 MCG TABLET PO SCH (07:44)
[2017-03-12] MEDS: DOCUSATE SODIUM 100 MG CAPSULE PO SCH ×2 (07:44→19:19)
[2017-03-12] MEDS: traZODone 50 MG TABLET. PO SCH ×3 (07:44→18:01)
[2017-03-12] MEDS: POLYETHYLENE GLYCOL 3350 17 GM PACKET. PO SCH (07:44)
[2017-03-12] MEDS: LITHIUM CARBONATE 150 MG CAPSULE. PO SCH (07:45)
[2017-03-12] MEDS: risperiDONE 0.5 MG TABLET. PO SCH ×3 (07:45→18:01)
[2017-03-12] MEDS: MAGNESIUM OXIDE 400 MG TABLET PO SCH (07:45)
[2017-03-12] MEDS: LITHIUM CARBONATE 300 MG TABLET PO SCH ×2 (07:46→19:20)
[2017-03-12 09:15] LABS: BASO # 0.1 x10^3/uL (0.0-0.2); BASO % 1 % (0-3); EOS # 0.9 x10^3/uL (0.0-0.7); EOS % 8 % (0-3); HEMATOCRIT 40.4 % (36.0-47.0); HEMOGLOBIN 13.5 g/dL (12.0-15.5); LYMPH # 1.2 x10^3/uL (1.0-4.8); LYMPH % 10 % (24-48); MEAN CORPUSCULAR HEMOGLOBIN 31 pg (25-35); MEAN CORPUSCULAR HGB CONC 33 g/dL (31-37); MEAN CORPUSCULAR VOLUME 92 fL (79-100); MONO # 0.8 x10^3/uL (0.0-1.1); MONO % 7 % (0-9); NEUT # 8.7 x10^3uL (1.8-7.7); NEUT % 74 % (31-73); PLATELET COUNT 336 x10^3/uL (140-400); RED CELL DISTRIBUTION WIDTH 16.1 % (11.5-14.5); WHITE BLOOD COUNT 11.7 x10^3/uL (4.0-11.0)
[2017-03-12 09:41] LABS: ALBUMIN 3.6 g/dL (3.4-5.0); ALBUMIN/GLOBULIN RATIO 1.2 (1.0-1.7); CREATININE 0.8 mg/dL (0.6-1.0); GFR 71.5; MAGNESIUM 2.2 mg/dL (1.8-2.4); POTASSIUM 3.8 mmol/L (3.5-5.1); TOTAL BILIRUBIN 0.3 mg/dL (0.2-1.0); TOTAL PROTEIN 6.5 g/dL (6.4-8.2)
[2017-03-12] MEDS: hydrOXYzine PAMOATE 25 MG CAPSULE PO PRN ×2 (11:09→22:56)
[2017-03-12 16:09] VITALS: BP 107/60
[2017-03-12] MEDS: ATORVASTATIN CALCIUM 20 MG TABLET PO SCH (19:19)
[2017-03-12] MEDS: MIRTAZAPINE 15 MG TABLET PO SCH (19:20)
[2017-03-13] MEDS: LORazepam 0.5 MG TABLET PO PRN (04:15)
[2017-03-13] MEDS: LEVOTHYROXINE 112 MCG TABLET PO SCH (05:48)
[2017-03-13 06:42] VITALS: BP 143/80
[2017-03-13] MEDS: DOCUSATE SODIUM 100 MG CAPSULE PO SCH ×2 (09:50→20:15)
[2017-03-13] MEDS: MAGNESIUM OXIDE 400 MG TABLET PO SCH (09:51)
[2017-03-13] MEDS: traZODone 50 MG TABLET. PO SCH ×3 (09:51→15:09)
[2017-03-13] MEDS: risperiDONE 0.5 MG TABLET. PO SCH ×3 (09:51→17:09)
[2017-03-13] MEDS: LITHIUM CARBONATE 300 MG TABLET PO SCH (09:51)
[2017-03-13] MEDS: NAPROXEN 500 MG TABLET PO SCH ×2 (09:52→20:15)
[2017-03-13] MEDS: LITHIUM CARBONATE 150 MG CAPSULE. PO SCH ×2 (09:52→20:19)
[2017-03-13] MEDS: POLYETHYLENE GLYCOL 3350 17 GM PACKET. PO SCH (09:52)
[2017-03-13] MEDS: ENOXAPARIN 40 MG/0.4 ML DISP.SYRIN. SQ SCH (09:54)
--- NOTE | 2017-03-13 11:26 | PN ---
DATE: 03/10/2017 PSYCHIATRIC PROGRESS NOTE This is a late entry for 03/10/2017, covers the elements not covered in my initial note of 03/10/2017. SUBJECTIVE: I met with the patient the evening of 03/10/2017. The patient has once again had a very difficult day. She has been yelling, screaming, repetitive, loud, disruptive. Very challenging in her presentation, overwhelming at times with the nursing staff. I have reviewed in detailed note from Dr. Du left for me. The patient's AST and ALT have elevated somewhat and review of her medication reveals that Zyprexa has a greater than 10% incidence of causing this, Lovenox 6%, Remeron 2%, Luvox 2%, Risperdal 0%, trazodone 0%, lithium not applicable. The patient remains anxious, paranoid. Dr. Du had noticed some twitching, but Dr. Marino has evaluated the patient, nothing clinically significant noted. She certainly could have some mild EPS but we will monitor for this. REVIEW OF SYSTEMS: Ambulation impaired, in a Broda chair. No CV, , pulmonary, eye, ENT system symptoms on review, vague somatic symptoms. MENTAL STATUS EXAM: Oriented to herself. Insight, judgment, recent and remote memory, attention, concentration, fund of knowledge poor, consistent with her diagnosis mentioned in my initial note. PLAN: Repeat liver function tests on Monday03/12/2017, increase scheduled trazodone from 25 mg 3 times a day to 50 mg in the morning and 25 mg for the second dosage, 50 mg for the third dosage. Maintain the rest of the psychotropics. Reviewed drug interactions, risk/benefit ratio favors no further change. Zyprexa is the one psychotropic that has greater than 10% chance of raising liver enzymes, but she only gets this p.r.n. rather ____. We will check the liver profile on 03/12/2017 and then decide further. MAN Aden BILLS MD DR: JAIME/meli JOB#: [id number] / [id number]
--- NOTE | 2017-03-13 11:32 | PN ---
DATE: 03/11/2017 This note covers elements not covered in my initial note of 03/11/2017. Overall, the patient remains quite confused, continues to have some yelling, repetitive behaviors, but this is less than before. She is somewhat sedated with the increased trazodone. Discussed with Dr. Du morning of 03/11/2017 as well. REVIEW OF SYSTEMS: Ambulation impaired, in a Broda chair. No CV, , pulmonary, eye, ENT system symptoms on review. Reliability poor. MENTAL STATUS EXAM: Oriented to herself. Insight, judgment, recent and remote memory, attention, concentration, fund of knowledge poor, consistent with her diagnosis mentioned in my initial note. PLAN: Continue current psychotropics, reviewed drug interactions, risk/benefit ratio favors no further change. MAN Aden BILLS MD DR: JAIME/meli JOB#: [id number] / [id number]
[2017-03-13] MEDS: hydrOXYzine PAMOATE 25 MG CAPSULE PO PRN (12:02)
[2017-03-13 16:12] VITALS: BP 144/74
[2017-03-13] MEDS: ATORVASTATIN CALCIUM 20 MG TABLET PO SCH (20:14)
[2017-03-13] MEDS: MIRTAZAPINE 15 MG TABLET PO SCH (20:15)
[2017-03-13] MEDS: traZODone 100 MG TABLET. PO PRN ×2 (20:19→22:55)
--- NOTE | 2017-03-14 03:11 | PN ---
DATE: 02/01/2017 SUBJECTIVE: The patient was seen today, met with the staff, chart reviewed, and covering for Dr. Hernandez. Staff reports the patient is somewhat withdrawn, confused, likes to be left alone. The patient was also seen by the neurologist because of increased confusion and exploring causes for worsening of her dementia including encephalopathy. The patient also has multiple physical problems including hypothyroidism, muscle weakness and osteoarthritis and dysphagia. The patient was admitted because of constant yelling, screaming, paranoid about being alone, increased agitation, mood swings, irritability. OBSERVATION: VITAL SIGNS: Temperature 97.7, blood pressure 143/80, pulse 76, respirations 16, O2 sat 97%. Slept about 4-1/2 hours last night. The patient's appetite decreased. MEDICATIONS: The patient's current medications include lithium carbonate 150 mg b.i.d., trazodone 25 mg daily, trazodone 50 mg b.i.d., Luvox 150 mg at night, Risperdal 0.5 mg t.i.d., trazodone 100 mg at night p.r.n., Remeron 15 mg at night. She is also on lorazepam p.r.n. and also olanzapine p.r.n. The patient currently not exhibiting any major withdrawal symptoms on lithium, but because of her dementia and poor response to lithium, we will decrease lithium to 150 mg twice a day. The patient's lithium level was 1 and she is at high risk for lithium toxicity. ASSESSMENT: Dementia with depression, delusions and behavioral disturbances. ELLIE BURGER MD DR: VLADIMIR/meli JOB#: [id number] / [id number]
[2017-03-14] MEDS: LEVOTHYROXINE 112 MCG TABLET PO SCH (06:19)
[2017-03-14 06:35] VITALS: BP 133/75
[2017-03-14] MEDS: MAGNESIUM OXIDE 400 MG TABLET PO SCH (09:21)
[2017-03-14] MEDS: POLYETHYLENE GLYCOL 3350 17 GM PACKET. PO SCH (09:21)
[2017-03-14] MEDS: DOCUSATE SODIUM 100 MG CAPSULE PO SCH ×2 (09:21→19:41)
[2017-03-14] MEDS: risperiDONE 0.5 MG TABLET. PO SCH ×3 (09:21→20:57)
[2017-03-14] MEDS: NAPROXEN 500 MG TABLET PO SCH ×2 (09:21→19:41)
[2017-03-14] MEDS: LITHIUM CARBONATE 150 MG CAPSULE. PO SCH ×2 (09:21→19:41)
[2017-03-14] MEDS: traZODone 50 MG TABLET. PO SCH ×3 (09:22→15:59)
[2017-03-14] MEDS: ENOXAPARIN 40 MG/0.4 ML DISP.SYRIN. SQ SCH (09:27)
[2017-03-14 15:31] VITALS: BP 145/90
[2017-03-14] MEDS: ATORVASTATIN CALCIUM 20 MG TABLET PO SCH (19:41)
[2017-03-14] MEDS: MIRTAZAPINE 15 MG TABLET PO SCH (19:43)
[2017-03-15] MEDS: LEVOTHYROXINE 112 MCG TABLET PO SCH (05:56)
[2017-03-15 06:05] VITALS: BP 126/64
[2017-03-15] MEDS: DOCUSATE SODIUM 100 MG CAPSULE PO SCH ×2 (09:52→19:21)
[2017-03-15] MEDS: MAGNESIUM OXIDE 400 MG TABLET PO SCH (09:52)
[2017-03-15] MEDS: LITHIUM CARBONATE 150 MG CAPSULE. PO SCH ×2 (09:52→19:21)
[2017-03-15] MEDS: risperiDONE 0.5 MG TABLET. PO SCH ×2 (09:52→19:22)
[2017-03-15] MEDS: NAPROXEN 500 MG TABLET PO SCH ×2 (09:53→19:21)
[2017-03-15] MEDS: traZODone 50 MG TABLET. PO SCH ×3 (09:53→16:53)
[2017-03-15] MEDS: POLYETHYLENE GLYCOL 3350 17 GM PACKET. PO SCH (09:53)
[2017-03-15] MEDS: ENOXAPARIN 40 MG/0.4 ML DISP.SYRIN. SQ SCH (09:54)
--- NOTE | 2017-03-15 09:56 | PN ---
DATE: 03/14/2017 SUBJECTIVE: The patient was seen today, met with the staff, chart reviewed. The patient continues to have problems, multiple physical complaints, confused, periods of agitation, and also tend to holler very loud and also she is fearful, likes to be left alone. OBSERVATION: VITAL SIGNS: Temperature 98.1, blood pressure 133/75, pulse 79, respirations 20, O2 sat 94.1 and slept only about 2 hours last night. CURRENT MEDICATIONS: The patient makes eye contact, but very anxious, likes to be left alone and also gets upset with the external stimuli including noise and uncomfortable talking to people. The patient currently not showing any side effects to the medications. The patient currently on lithium 150 mg b.i.d. and lithium levels to be checked twice a week and the patient also on Risperdal 0.5 mg t.i.d., Remeron 15 mg at night. She is also on Luvox 150 mg at night, trazodone 50 mg in the morning and 25 mg in day and 50 mg at night and also trazodone 100 mg p.r.n. at bedtime because of sleep problems. ASSESSMENT: Dementia with depression, delusions, and behavioral disturbances. Medications reviewed. The patient's Risperdal to be decreased to 0.5 mg b.i.d. and Remeron increased to 22.5 mg at night since she is not responding to trazodone. Continue with the treatment. ELLIE BURGER MD DR: VLADIMIR/meli JOB#: [id number] / [id number]
[2017-03-15] MEDS: hydrOXYzine PAMOATE 25 MG CAPSULE PO PRN (09:57)
[2017-03-15 15:55] LABS: BACTERIA,URINE MANY /HPF (0-FEW); BILIRUBIN,URINE NEG (NEG); CLARITY,URINE CLOUDY; COLOR,URINE YELLOW; GLUCOSE,URINE NEG (NEG); NITRITE,URINE NEG (NEG); SQUAMOUS EPITHELIAL CELL,UR OCC /LPF; UROBILINOGEN,URINE 0.2 mg/dL (0.2 mg/dL); WBC,URINE >40 /HPF (0-4)
[2017-03-15 16:14] VITALS: BP 116/58
[2017-03-15] MEDS: ATORVASTATIN CALCIUM 20 MG TABLET PO SCH (19:21)
[2017-03-15] MEDS: MIRTAZAPINE 15 MG TABLET PO SCH (19:22)
[2017-03-15] MEDS: traZODone 100 MG TABLET. PO PRN (21:03)
[2017-03-15] MEDS: LORazepam 0.5 MG TABLET PO PRN (21:04)
[2017-03-15 21:15] VITALS: BP 134/83
--- NOTE | 2017-03-16 03:57 | PN ---
DATE: 03/15/2017 SUBJECTIVE: The patient was seen today, met with the staff, chart reviewed. The patient is not presenting with any major behavior problems except she is confused and periods of agitation. OBSERVATION: VITAL SIGNS: Temperature 97.9, blood pressure 126/64, pulse 80, respirations 16, O2 sat 95%. Slept about 7 hours last night. The patient did not have any falls. The patient is not exhibiting any side effects to the medications. CURRENT MEDICATIONS: Risperdal 0.5 mg b.i.d., Remeron 22.5 mg at night, lithium carbonate 150 mg b.i.d., trazodone 25 mg daily and also 50 mg b.i.d., Luvox 150 mg at night, trazodone 100 mg at night p.r.n. She is also on p.r.n. lorazepam and olanzapine. ASSESSMENT: Dementia with depression, delusions and behavioral disturbances. PLAN: Continue with medications. ELLIE BURGER MD DR: VLADIMIR/meli JOB#: [id number] / [id number]
[2017-03-16 05:57] VITALS: BP 151/77
[2017-03-16] MEDS: POLYETHYLENE GLYCOL 3350 17 GM PACKET. PO SCH (07:30)
[2017-03-16] MEDS: ENOXAPARIN 40 MG/0.4 ML DISP.SYRIN. SQ SCH (07:30)
[2017-03-16] MEDS: DOCUSATE SODIUM 100 MG CAPSULE PO SCH ×2 (07:31→19:42)
[2017-03-16] MEDS: LITHIUM CARBONATE 150 MG CAPSULE. PO SCH ×2 (07:31→19:42)
[2017-03-16] MEDS: NAPROXEN 500 MG TABLET PO SCH ×2 (07:31→19:43)
[2017-03-16] MEDS: MAGNESIUM OXIDE 400 MG TABLET PO SCH (07:31)
[2017-03-16] MEDS: risperiDONE 0.5 MG TABLET. PO SCH ×2 (07:31→19:43)
[2017-03-16] MEDS: traZODone 50 MG TABLET. PO SCH ×3 (07:32→16:16)
[2017-03-16] MEDS: LEVOTHYROXINE 112 MCG TABLET PO SCH (07:34)
[2017-03-16 15:06] LABS: LI 0.6 mmol/L (0.6-1.2)
[2017-03-16 15:34] VITALS: BP 126/74
[2017-03-16] MEDS: ATORVASTATIN CALCIUM 20 MG TABLET PO SCH (19:42)
[2017-03-16] MEDS: MIRTAZAPINE 15 MG TABLET PO SCH (19:43)
[2017-03-16] MEDS: LORazepam 0.5 MG TABLET PO PRN (21:11)
[2017-03-16] MEDS: traZODone 100 MG TABLET. PO PRN (21:11)
[2017-03-17 06:06] VITALS: BP 95/59
[2017-03-17] MEDS: LEVOTHYROXINE 112 MCG TABLET PO SCH (06:24)
--- NOTE | 2017-03-17 07:23 | PN ---
DATE: 03/16/2017 SUBJECTIVE: I discussed the patient's diagnosis, treatment, current symptoms and discharge plans. The patient continues to have problems, increased agitation, constantly hollering very loud, and also confused. The patient is also showing some emotional lability. The patient apparently had urinary retention. The patient has no other problems. OBSERVATION: VITAL SIGNS: Temperature 97.6, blood pressure 131/77, pulse 85, respirations 18, O2 sat 96%. The patient slept about 7 hours last night. The patient's appetite improved. CURRENT MEDICATIONS: Include Risperdal 0.5 mg b.i.d., Remeron 22.5 mg at night, lithium carbonate 150 mg b.i.d., trazodone 25 mg daily and 50 mg b.i.d., Luvox 150 mg at night, trazodone 100 mg at night p.r.n. She is also on p.r.n. lorazepam and olanzapine. ASSESSMENT: Dementia with depression, delusions and behavioral disturbances. PLAN: To continue with the treatment. The patient's lithium level is 0.7. ELLIE BURGER MD DR: VLADIMIR/meli JOB#: [id number] / [id number]
[2017-03-17] MEDS: POLYETHYLENE GLYCOL 3350 17 GM PACKET. PO SCH (07:55)
[2017-03-17] MEDS: NAPROXEN 500 MG TABLET PO SCH ×2 (07:56→19:20)
[2017-03-17] MEDS: traZODone 50 MG TABLET. PO SCH ×3 (07:56→16:00)
[2017-03-17] MEDS: DOCUSATE SODIUM 100 MG CAPSULE PO SCH ×2 (07:56→19:19)
[2017-03-17] MEDS: ENOXAPARIN 40 MG/0.4 ML DISP.SYRIN. SQ SCH (07:56)
[2017-03-17] MEDS: risperiDONE 0.5 MG TABLET. PO SCH ×2 (07:56→19:19)
[2017-03-17] MEDS: MAGNESIUM OXIDE 400 MG TABLET PO SCH (07:56)
[2017-03-17] MEDS: LITHIUM CARBONATE 150 MG CAPSULE. PO SCH ×2 (07:56→19:19)
[2017-03-17] MEDS: CHOLECALCIFEROL (VITAMIN D3) 50,000 UNIT CAPSULE PO SCH (07:59)
[2017-03-17] MEDS: hydrOXYzine PAMOATE 25 MG CAPSULE PO PRN (09:20)
[2017-03-17 13:32] LABS: LI 0.7 mmol/L (0.6-1.2)
[2017-03-17 16:35] VITALS: BP 115/64
[2017-03-17] MEDS: traZODone 100 MG TABLET. PO PRN ×2 (19:19→21:52)
[2017-03-17] MEDS: LORazepam 0.5 MG TABLET PO PRN (19:19)
[2017-03-17] MEDS: ATORVASTATIN CALCIUM 20 MG TABLET PO SCH (19:20)
[2017-03-17] MEDS: MIRTAZAPINE 15 MG TABLET PO SCH (19:20)
[2017-03-17] MEDS: AMOXICILLIN 250 MG CAPSULE PO SCH (19:35)
[2017-03-17] MEDS: LACTOBACILLUS ACIDOPH & BULGAR 1 TABLET. PO SCH ×2 (19:40→21:33)
[2017-03-18] MEDS: LEVOTHYROXINE 112 MCG TABLET PO SCH (05:37)
[2017-03-18 06:23] VITALS: BP 124/75
[2017-03-18 07:29] LABS: ALBUMIN 3.4 g/dL (3.4-5.0); ALBUMIN/GLOBULIN RATIO 1.2 (1.0-1.7); CALCIUM 8.8 mg/dL (8.5-10.1); CREATININE 0.7 mg/dL (0.6-1.0); GFR 83.5; POTASSIUM 4.6 mmol/L (3.5-5.1); TOTAL BILIRUBIN 0.3 mg/dL (0.2-1.0); TOTAL PROTEIN 6.2 g/dL (6.4-8.2)
[2017-03-18] MEDS: LACTOBACILLUS ACIDOPH & BULGAR 1 TABLET. PO SCH ×2 (07:34→19:08)
[2017-03-18] MEDS: NAPROXEN 500 MG TABLET PO SCH ×2 (07:34→19:09)
[2017-03-18] MEDS: traZODone 50 MG TABLET. PO SCH ×3 (07:34→15:49)
[2017-03-18] MEDS: DOCUSATE SODIUM 100 MG CAPSULE PO SCH ×2 (07:35→19:09)
[2017-03-18] MEDS: AMOXICILLIN 250 MG CAPSULE PO SCH ×3 (07:35→19:08)
[2017-03-18] MEDS: MAGNESIUM OXIDE 400 MG TABLET PO SCH (07:35)
[2017-03-18] MEDS: LITHIUM CARBONATE 150 MG CAPSULE. PO SCH ×2 (07:35→19:09)
[2017-03-18] MEDS: LORazepam 0.5 MG TABLET PO PRN (07:35)
[2017-03-18] MEDS: risperiDONE 0.5 MG TABLET. PO SCH ×2 (07:35→19:09)
[2017-03-18] MEDS: ENOXAPARIN 40 MG/0.4 ML DISP.SYRIN. SQ SCH (07:36)
[2017-03-18] MEDS: POLYETHYLENE GLYCOL 3350 17 GM PACKET. PO SCH (07:37)
[2017-03-18 07:48] LABS: BASO # 0.1 x10^3/uL (0.0-0.2); BASO % 1 % (0-3); EOS # 1.2 x10^3/uL (0.0-0.7); EOS % 12 % (0-3); HEMATOCRIT 38.6 % (36.0-47.0); HEMOGLOBIN 12.8 g/dL (12.0-15.5); LYMPH # 1.6 x10^3/uL (1.0-4.8); LYMPH % 16 % (24-48); MEAN CORPUSCULAR HEMOGLOBIN 31 pg (25-35); MEAN CORPUSCULAR HGB CONC 33 g/dL (31-37); MEAN CORPUSCULAR VOLUME 93 fL (79-100); MONO % 10 % (0-9); NEUT % 61 % (31-73); PLATELET COUNT 340 x10^3/uL (140-400); RED BLOOD COUNT 4.16 x10^6/uL (3.50-5.40); RED CELL DISTRIBUTION WIDTH 15.8 % (11.5-14.5); WHITE BLOOD COUNT 9.9 x10^3/uL (4.0-11.0)
--- NOTE | 2017-03-18 11:25 | PN ---
DATE: 03/17/2017 SUBJECTIVE: The patient was seen today, met with the staff, chart reviewed. The patient continues to have some behavior problems, usually very loud for no apparent reason, the patient is not able to explain why screams so loud periodically. The patient is no longer having any urinary retention. The patient's Depakote was repeated today and it was 0.6. The patient is on wheelchair, most of the time withdrawn, isolates herself. OBSERVATION: Vital signs stable. Sleep fairly good. Appetite decreased. MEDICATIONS: The patient's current medications include Risperdal 0.5 mg b.i.d., mirtazapine 22.5 mg at night, lithium carbonate 150 mg b.i.d., trazodone 25 mg daily and 50 mg twice a day, fluvoxamine 150 mg at night, trazodone 100 mg p.r.n. at night. The patient is not having any side effects. The patient's intake is monitored. ASSESSMENT: Dementia with depression, delusions and behavioral disturbances. PLAN: To continue with the treatment. ELLIE BURGER MD DR: VLADIMIR/meli JOB#: [id number] / [id number]
[2017-03-18 15:54] VITALS: BP 138/79
[2017-03-18] MEDS: ATORVASTATIN CALCIUM 20 MG TABLET PO SCH (19:02)
[2017-03-18] MEDS: MIRTAZAPINE 15 MG TABLET PO SCH (19:02)
[2017-03-19 06:00] VITALS: BP 122/66
[2017-03-19] MEDS: LEVOTHYROXINE 112 MCG TABLET PO SCH (06:26)
[2017-03-19] MEDS: AMOXICILLIN 250 MG CAPSULE PO SCH ×3 (09:19→19:31)
[2017-03-19] MEDS: MAGNESIUM OXIDE 400 MG TABLET PO SCH (09:19)
[2017-03-19] MEDS: traZODone 50 MG TABLET. PO SCH ×3 (09:19→16:14)
[2017-03-19] MEDS: DOCUSATE SODIUM 100 MG CAPSULE PO SCH ×2 (09:19→19:32)
[2017-03-19] MEDS: NAPROXEN 500 MG TABLET PO SCH ×2 (09:19→19:35)
[2017-03-19] MEDS: LACTOBACILLUS ACIDOPH & BULGAR 1 TABLET. PO SCH ×2 (09:19→19:31)
[2017-03-19] MEDS: LITHIUM CARBONATE 150 MG CAPSULE. PO SCH ×2 (09:19→19:31)
[2017-03-19] MEDS: risperiDONE 0.5 MG TABLET. PO SCH ×2 (09:19→19:33)
[2017-03-19] MEDS: ENOXAPARIN 40 MG/0.4 ML DISP.SYRIN. SQ SCH (09:20)
[2017-03-19] MEDS: POLYETHYLENE GLYCOL 3350 17 GM PACKET. PO SCH (09:20)
[2017-03-19] MEDS: LORazepam 0.5 MG TABLET PO PRN ×2 (11:23→19:39)
[2017-03-19 16:47] VITALS: BP 125/67
[2017-03-19] MEDS: ATORVASTATIN CALCIUM 20 MG TABLET PO SCH (19:32)
[2017-03-19] MEDS: MIRTAZAPINE 15 MG TABLET PO SCH (19:33)
[2017-03-19] MEDS: traZODone 100 MG TABLET. PO PRN ×2 (19:39→22:27)
[2017-03-20] MEDS: LEVOTHYROXINE 112 MCG TABLET PO SCH (05:25)
[2017-03-20 06:26] VITALS: BP 113/60
[2017-03-20 08:34] LABS: ALBUMIN 2.9 g/dL (3.4-5.0); ALBUMIN/GLOBULIN RATIO 1.1 (1.0-1.7); BASO # 0.1 x10^3/uL (0.0-0.2); BASO % 1 % (0-3); CALCIUM 8.6 mg/dL (8.5-10.1); CREATININE 0.5 mg/dL (0.6-1.0); EOS % 14 % (0-3); GFR 123.1; HEMATOCRIT 36.2 % (36.0-47.0); HEMOGLOBIN 12.1 g/dL (12.0-15.5); LYMPH # 1.1 x10^3/uL (1.0-4.8); LYMPH % 14 % (24-48); MAGNESIUM 2.3 mg/dL (1.8-2.4); MEAN CORPUSCULAR HEMOGLOBIN 31 pg (25-35); MEAN CORPUSCULAR HGB CONC 34 g/dL (31-37); MEAN CORPUSCULAR VOLUME 92 fL (79-100); MONO # 0.6 x10^3/uL (0.0-1.1); MONO % 8 % (0-9); NEUT # 4.9 x10^3uL (1.8-7.7); NEUT % 64 % (31-73); PLATELET COUNT 315 x10^3/uL (140-400); POTASSIUM 4.4 mmol/L (3.5-5.1); RED BLOOD COUNT 3.95 x10^6/uL (3.50-5.40); RED CELL DISTRIBUTION WIDTH 15.6 % (11.5-14.5); TOTAL BILIRUBIN 0.3 mg/dL (0.2-1.0); TOTAL PROTEIN 5.5 g/dL (6.4-8.2); WHITE BLOOD COUNT 7.7 x10^3/uL (4.0-11.0)
[2017-03-20] MEDS: DOCUSATE SODIUM 100 MG CAPSULE PO SCH ×2 (09:04→19:23)
[2017-03-20] MEDS: NAPROXEN 500 MG TABLET PO SCH ×2 (09:04→19:25)
[2017-03-20] MEDS: traZODone 50 MG TABLET. PO SCH ×3 (09:04→16:28)
[2017-03-20] MEDS: LITHIUM CARBONATE 150 MG CAPSULE. PO SCH ×2 (09:04→19:23)
[2017-03-20] MEDS: ENOXAPARIN 40 MG/0.4 ML DISP.SYRIN. SQ SCH (09:04)
[2017-03-20] MEDS: risperiDONE 0.5 MG TABLET. PO SCH ×2 (09:04→19:25)
[2017-03-20] MEDS: MAGNESIUM OXIDE 400 MG TABLET PO SCH (09:04)
[2017-03-20] MEDS: POLYETHYLENE GLYCOL 3350 17 GM PACKET. PO SCH (09:04)
[2017-03-20] MEDS: LACTOBACILLUS ACIDOPH & BULGAR 1 TABLET. PO SCH ×2 (09:04→19:23)
[2017-03-20] MEDS: AMOXICILLIN 250 MG CAPSULE PO SCH ×3 (09:04→19:23)
--- NOTE | 2017-03-20 12:38 | PN ---
DATE: 03/18/2017 SUBJECTIVE: The patient was seen today, met with the staff, chart reviewed. The patient is withdrawn, confused, admits to feeling scared. The patient constantly in fear, start screaming on top of her voice. The patient is not having any physical complaints. OBSERVATION: VITAL SIGNS: Temperature 97.5, blood pressure 124/75, pulse 73, respirations 16, and O2 sat 97%. Slept about 5-1/2 hours last night. CURRENT MEDICATIONS: The patient's current medications include Risperdal 0.5 mg b.i.d., mirtazapine 22.5 mg at night, lithium carbonate 150 mg b.i.d., trazodone 50 mg b.i.d., fluvoxamine 150 mg at night. The patient is on p.r.n. medications including trazodone, olanzapine. The patient's lab reviewed, no changes from the previous results. Liver enzymes still elevated, slight decrease. ASSESSMENT: Dementia, most likely Alzheimer's with depression, delusions and behavioral disturbances. PLAN: To continue with the treatment. ELLIE BURGER MD DR: VLADIMIR/meli JOB#: [id number] / [id number]
--- NOTE | 2017-03-20 12:42 | PN ---
DATE: 03/19/2017 SUBJECTIVE: The patient was seen today, met with the staff, and chart reviewed. The patient continues to have problems with urinary retention again. The patient is constantly hollering for no apparent reason. The patient recently had a lithium level of 1.2, then it has dropped to 0.8. OBSERVATION: VITAL SIGNS: Temperature 97.8, blood pressure 122/66, pulse 68, respiration 18, O2 sat 97%. Slept about 8 hours last night. The patient felt confused, agitated and difficult to redirect, constant hollering. CURRENT MEDICATIONS: Include Risperdal 0.5 mg b.i.d., mirtazapine 22.5 at night, lithium carbonate 150 mg b.i.d., trazodone 25 mg daily and 50 mg b.i.d., Luvox 150 mg at night. The patient is also on p.r.n. meds. ASSESSMENT: Dementia with depression, delusions and behavioral disturbances. PLAN: Discussed with the staff, because of the patient's frequent urinary retention, it may not be advisable to continue on the [place], maybe should consider discontinuing lithium gradually. The staff advised to check his lithium level again. ELLIE BURGER MD DR: VLADIMIR/meli JOB#: [id number] / [id number]
[2017-03-20 16:05] VITALS: BP 159/71
[2017-03-20] MEDS: ATORVASTATIN CALCIUM 20 MG TABLET PO SCH (19:25)
[2017-03-20] MEDS: MIRTAZAPINE 15 MG TABLET PO SCH (19:25)
--- NOTE | 2017-03-20 20:45 | PDOC ---
Exam Jeanmarie Demential Exam: Jeanmarie Note: Please also refer to the separate dictated note~for this date of service dictated separately.~Patient seen individually. Discussed the patient with Nursing staff reviewed the chart.~Reviewed interim history and current functioning. Reviewed vital signs,~Labs/ Radiology~and current medications noted below. Continue current treatment with the changes noted in the dictated addendum note Assessment: Vital Signs: Vital Signs Date Time Temp Pulse Resp B/P (MAP) Pulse Ox O2 Delivery O2 Flow Rate FiO2 03/20/17 16:05 97.6 96 20 159/71 (100) 95 03/20/17 06:26 Room Air I&O Intake and Output 03/21/17 07:00 Intake Total 340 ml Balance 340 ml Intake Oral 340 ml Labs: Laboratory Tests Test 03/20/17 07:52 White Blood Count 7.7 x10^3/uL (4.0-11.0) Red Blood Count 3.95 x10^6/uL (3.50-5.40) Hemoglobin 12.1 g/dL (12.0-15.5) Hematocrit 36.2 % (36.0-47.0) Mean Corpuscular Volume 92 fL (79-100) Mean Corpuscular Hemoglobin 31 pg (25-35) Mean Corpuscular Hemoglobin Concent 34 g/dL (31-37) Red Cell Distribution Width 15.6 % (11.5-14.5) H Platelet Count 315 x10^3/uL (140-400) Neutrophils (%) (Auto) 64 % (31-73) Lymphocytes (%) (Auto) 14 % (24-48) L Monocytes (%) (Auto) 8 % (0-9) Eosinophils (%) (Auto) 14 % (0-3) H Basophils (%) (Auto) 1 % (0-3) Neutrophils # (Auto) 4.9 x10^3uL (1.8-7.7) Lymphocytes # (Auto) 1.1 x10^3/uL (1.0-4.8) Monocytes # (Auto) 0.6 x10^3/uL (0.0-1.1) Eosinophils # (Auto) 1.0 x10^3/uL (0.0-0.7) H Basophils # (Auto) 0.1 x10^3/uL (0.0-0.2) Sodium Level 141 mmol/L (136-145) Potassium Level 4.4 mmol/L (3.5-5.1) Chloride Level 108 mmol/L (98-107) H Carbon Dioxide Level 27 mmol/L (21-32) Anion Gap 6 (6-14) Blood Urea Nitrogen 17 mg/dL (7-20) Creatinine 0.5 mg/dL (0.6-1.0) L Estimated GFR (Cockcroft-Gault) 123.1 BUN/Creatinine Ratio 34 (6-20) H Glucose Level 99 mg/dL (70-99) Calcium Level 8.6 mg/dL (8.5-10.1) Magnesium Level 2.3 mg/dL (1.8-2.4) Total Bilirubin 0.3 mg/dL (0.2-1.0) Aspartate Amino Transferase (AST) 19 U/L (15-37) Alanine Aminotransferase (ALT) 52 U/L (14-59) Alkaline Phosphatase 102 U/L (46-116) Total Protein 5.5 g/dL (6.4-8.2) L Albumin 2.9 g/dL (3.4-5.0) L Albumin/Globulin Ratio 1.1 (1.0-1.7) Current Medications: Meds: Current Medications Lorazepam (Ativan) 0.5 mg 1X ONCE PO Last administered on 02/01/17 19:14; Start 02/01/17 at 19:15; Stop 02/01/17 at 19:16; Status DC Ceftriaxone Sodium (Rocephin Im) 1 gm 1X ONCE IM Last administered on 20:45; Start 02/01/17 at 20:30; Stop 02/01/17 at 20:31; Status DC Acetaminophen (Tylenol) 650 mg PRN Q6HRS PRN PO MILD PAIN / TEMP Last administered on 03/08/17 09:20; Start 02/01/17 at 23:15 Multi-Ingredient Ointment (Analgesic [place]) 1 rosita PRN QID PRN TP MUSCLE PAIN; Start 02/01/17 at 23:15 Al Hydroxide/Mg Hydroxide (Mylanta Plus Xs) 15 ml PRN AFTMEALHC PRN PO DYSPEPSIA; Start 02/01/17 at 23:15 Magnesium Hydroxide (Milk Of Magnesia) 2,400 mg PRN QHS PRN PO CONSTIPATION Last administered on 02/13/17 02:05; Start 02/01/17 at 23:15 Olanzapine (ZyPREXA) 5 mg HS PO Last administered on 02/13/17 19:31; Start at 21:00; Stop 02/14/17 at 18:51; Status DC Quetiapine Fumarate (SEROquel) 25 mg BID PO Last administered on 02/08/17 08: 42; Start 02/02/17 at 09:00; Stop 02/08/17 at 19:16; Status DC Sertraline HCl (Zoloft) 100 mg DAILY PO Last administered on 02/06/17 08:01; Start 02/02/17 at 09:00; Stop 02/06/17 at 18:56; Status DC Olanzapine (ZyPREXA) 5 mg 1X ONCE PO Last administered on 02/02/17 00:27; Start 02/02/17 at 00:30; Stop 02/02/17 at 00:31; Status DC Alprazolam (Xanax) 0.5 mg BID PO Last administered on 02/13/17 11:42; Start at 09:00; Stop 02/13/17 at 18:35; Status DC Lorazepam (Ativan) 0.5 mg PRN Q4HRS PRN PO ANXIETY / AGITATION Last administered on 02/02/17 14:57; Start 02/02/17 at 00:15; Stop 02/02/17 at 15:59 ; Status DC Levothyroxine Sodium (Synthroid) 112 mcg DAILY06 PO Last administered on 05:25; Start 02/02/17 at 10:00 Naproxen (Naprosyn) 500 mg BID PO Last administered on 03/20/17 19:25; Start 02/02/17 at 09:00 Atorvastatin Calcium (Lipitor) 40 mg QHS PO Last administered on 03/20/17 19: 25; Start 02/02/17 at 21:00 Mirtazapine (Remeron) 7.5 mg QHS PO Last administered on 02/20/17 23:08; Start 02/02/17 at 21:00; Stop 02/21/17 at 19:38; Status DC Olanzapine (ZyPREXA ZYDIS) 2.5 mg PRN Q2HR PRN PO PSYCHOSIS Last administered on 03/19/17 22:27; Start 02/02/17 at 15:45 Alprazolam (Xanax) 0.25 mg PRN Q2HR PRN PO ANXIETY / AGITATION Last administered on 02/13/17 16:33; Start 02/02/17 at 15:45; Stop 02/13/17 at 18:35 ; Status DC Docusate Sodium (Colace) 100 mg BID PO Last administered on 03/20/17 19:23; Start 02/02/17 at 21:00 Polyethylene Glycol (miraLAX) 17 gm DAILY PO Last administered on 03/20/17 09 :04; Start 02/03/17 at 09:00 Vitamin D (Vitamin D3) 50,000 unit WEEKLY PO Last administered on 03/17/17 07 :59; Start 02/10/17 at 09:00 Divalproex Sodium (Depakote Sprinkles) 125 mg TID@0900,1300,1700 PO Last administered on 02/06/17 16:46; Start 02/04/17 at 09:00; Stop 02/06/17 at 18:56 ; Status DC Divalproex Sodium (Depakote Sprinkles) 250 mg TID@0900,1300,1700 PO Last administered on 02/09/17 09:13; Start 02/07/17 at 09:00; Stop 02/09/17 at 13:03 ; Status DC Fluvoxamine Maleate (Luvox) 50 mg HS PO Last administered on 02/13/17 19:32; Start 02/06/17 at 21:00; Stop 02/14/17 at 18:51; Status DC Quetiapine Fumarate (SEROquel) 25 mg TID PO Last administered on 02/09/17 09: 16; Start 02/09/17 at 09:00; Stop 02/09/17 at 13:30; Status DC Divalproex Sodium (Depakote Sprinkles) 375 mg TID@0900,1300,1700 PO Last administered on 02/16/17 08:01; Start 02/09/17 at 13:00; Stop 02/16/17 at 19:13 ; Status DC Quetiapine Fumarate (SEROquel) 37.5 mg TID PO Last administered on 02/12/17 12 :55; Start 02/09/17 at 14:00; Stop 02/12/17 at 17:56; Status DC Olanzapine (ZyPREXA) 5 mg 1X ONCE PO Last administered on 02/12/17 11:57; Start 02/12/17 at 12:00; Stop 02/12/17 at 12:01; Status DC Quetiapine Fumarate (SEROquel) 50 mg TID PO Last administered on 02/19/17 13: 43; Start 02/12/17 at 21:00; Stop 02/19/17 at 18:29; Status DC Lorazepam (Ativan) 0.5 mg PRN Q2HR PRN PO ANXIETY / AGITATION Last administered on 03/19/17 19:39; Start 02/13/17 at 18:45 Lorazepam (Ativan) 0.5 mg BID PO Last administered on 02/16/17 08:04; Start at 21:00; Stop 02/17/17 at 17:37; Status DC Fluvoxamine Maleate (Luvox) 75 mg HS PO Last administered on 02/15/17 19:11; Start 02/14/17 at 21:00; Stop 02/16/17 at 22:01; Status DC Trazodone HCl (Desyrel) 12.5 mg TID PO Last administered on 02/14/17 19:39; Start 02/14/17 at 19:00; Stop 02/14/17 at 21:12; Status DC Trazodone HCl (Desyrel) 12.5 mg TIDWMEALS PO Last administered on 02/19/17 07: 57; Start 02/15/17 at 08:00; Stop 02/19/17 at 09:00; Status DC Fluvoxamine Maleate (Luvox) 100 mg HS PO Last administered on 02/27/17 19:14; Start 02/16/17 at 21:00; Stop 02/28/17 at 18:33; Status DC Lorazepam (Ativan) 0.25 mg BID PO Last administered on 02/18/17 20:06; Start 02/17/17 at 21:00; Stop 02/18/17 at 22:00; Status DC Trazodone HCl (Desyrel) 12.5 mg QID PO Last administered on 02/28/17 16:43; Start 02/19/17 at 09:00; Stop 02/28/17 at 18:19; Status DC Risperidone (RisperDAL) 0.125 mg TID@0900,1300,1700 PO Last administered on 17:31; Start 02/20/17 at 09:00; Stop 02/20/17 at 22:50; Status DC Mirtazapine (Remeron) 15 mg QHS PO Last administered on 03/13/17 20:15; Start 02/21/17 at 21:00; Stop 03/14/17 at 15:48; Status DC Trazodone HCl (Desyrel) 50 mg PRN QHS PRN PO INSOMNIA, MAY REPEAT X1 Last administered on 02/23/17 00:34; Start 02/20/17 at 22:45; Stop 02/23/17 at 10:59 ; Status DC Risperidone (RisperDAL) 0.25 mg TID@0900,1300,1700 PO Last administered on 02/24 17:20; Start 02/21/17 at 09:00; Stop 02/24/17 at 19:06; Status DC Trazodone HCl (Desyrel) 100 mg PRN QHS PRN PO INSOMNIA, MAY REPEAT X1 Last administered on 03/19/17 22:27; Start 02/23/17 at 11:15 Risperidone (RisperDAL) 0.375 mg TID@0900,1300,1700 PO Last administered on 16:26; Start 02/25/17 at 09:00; Stop 02/26/17 at 18:57; Status DC Carbamazepine (TEGretol) 200 mg QHS PO Last administered on 02/27/17 19:14; Start 02/24/17 at 21:00; Stop 02/28/17 at 18:19; Status DC Enoxaparin Sodium (Lovenox) 40 mg Q24H SQ Last administered on 03/11/17 11:55 ; Start 02/25/17 at 14:00; Stop 03/12/17 at 10:01; Status DC Cefpodoxime Proxetil (Vantin) 100 mg BID PO Last administered on 03/06/17 08: 37; Start 02/25/17 at 21:00; Stop 03/06/17 at 12:55; Status DC Risperidone (RisperDAL) 0.5 mg TID@0900,1300,1700 PO Last administered on 03/14 12:40; Start 02/27/17 at 09:00; Stop 03/14/17 at 15:48; Status DC Carbamazepine (TEGretol) 150 mg BID PO Last administered on 03/03/17 08:14; Start 02/28/17 at 21:00; Stop 03/03/17 at 18:20; Status DC Trazodone HCl (Desyrel) 25 mg TID@0900,1300,1700 PO Last administered on 17:34; Start 03/01/17 at 09:00; Stop 03/09/17 at 18:31; Status DC Fluvoxamine Maleate (Luvox) 150 mg HS PO Last administered on 03/20/17 19:25 ; Start 02/28/17 at 21:00 [place] Carbonate 300 mg QHS PO Last administered on 03/12/17 19:20; Start 03/02/17 at 21:00; Stop 03/13/17 at 14:53; Status DC Influenza Virus Vaccine Quadrival (Fluarix Quad 9115-5615 Syringe) 0.5 ml ONCE ONCE VAX IM Last administered on 03/04/17 09:57; Start 03/04/17 at 09:00; Stop 03/04/17 at 09:01; Status DC [place] Carbonate 150 mg DAILY PO Last administered on 03/13/17 09:52; Start 03/06/17 at 09:00; Stop 03/13/17 at 14:53; Status DC [place] Carbonate 75 mg DAILY PO Last administered on 03/13/17 09:51; Start 03/09/17 at 09:00; Stop 03/13/17 at 14:53; Status DC Trazodone HCl (Desyrel) 25 mg BID@1300,1700 PO Last administered on 03/10/17 17:19; Start 03/10/17 at 13:00; Stop 03/10/17 at 19:29; Status DC Trazodone HCl (Desyrel) 50 mg DAILY PO ; Start 03/10/17 at 09:00; Stop at 19:29; Status DC Magnesium Oxide (Magnesium Oxide) 400 mg DAILY PO Last administered on 09:04; Start 03/11/17 at 09:00 Trazodone HCl (Desyrel) 50 mg BID94 PO Last administered on 03/20/17 16:28; Start 03/11/17 at 09:00; Stop 03/20/17 at 18:59; Status DC Trazodone HCl (Desyrel) 25 mg DAILYWLUN PO Last administered on 03/20/17 13: 37; Start 03/11/17 at 12:00; Stop 03/20/17 at 18:59; Status DC Hydroxyzine Pamoate (Vistaril) 25 mg PRN Q6HRS PRN PO AGITATION Last administered on 03/17/17 09:20; Start 03/12/17 at 10:00 Enoxaparin Sodium (Lovenox) 40 mg Q24H SQ Last administered on 03/20/17 09:04 ; Start 03/13/17 at 09:00 [place] Carbonate 150 mg BID PO Last administered on 03/20/17 19:23; Start 03/13/17 at 21:00 Mirtazapine (Remeron) 22.5 mg QHS PO Last administered on 03/20/17 19:25; Start 03/14/17 at 21:00 Risperidone (RisperDAL) 0.5 mg BID PO Last administered on 03/20/17 19:25; Start 03/14/17 at 21:00 Amoxicillin (Amoxil) 500 mg TID PO Last administered on 03/20/17 19:23; Start 03/17/17 at 19:30 Lactobacillus Acidophilus (Bacid, Kelly-Bid) 1 tab BID PO Last administered on 03/20/17 19:23; Start 03/17/17 at 19:30 Trazodone HCl (Desyrel) 50 mg TID@0900,1400,1600 PO ; Start 03/21/17 at 09:00 Active Scripts Active Reported Atorvastatin Calcium 40 Mg Tablet 40 Mg PO QHS Naproxen 500 Mg Tablet 500 Mg PO BID Lorazepam 0.5 Mg Tablet 0.5 Mg PO PRN Q4HRS PRN Seroquel (Quetiapine Fumarate) 25 Mg Tablet 25 Mg PO BID Zoloft (Sertraline Hcl) 100 Mg Tablet 100 Mg PO DAILY Levothyroxine Sodium 112 Mcg Tablet 112 Mcg PO DAILYAC Olanzapine 5 Mg Tablet 5 Mg PO HS Alprazolam 0.5 Mg Tablet 0.5 Mg PO BID Diagnosis: Problems: (1) Anxiety disorder (2) Bipolar 1 disorder, mixed, moderate (3) Dementia in Alzheimer's disease with delusions (4) Dementia in Alzheimer's disease with depression (5) Dementia, vascular, with depression (6) Dementia, vascular, with delusions (7) Impulse control disorder ELEANOR BILLS MD Mar 20, 2017 20:45
[2017-03-20 21:47] LABS: LI 0.7 mmol/L (0.6-1.2)
[2017-03-20] MEDS: traZODone 100 MG TABLET. PO PRN (23:01)
[2017-03-20] MEDS: LORazepam 0.5 MG TABLET PO PRN (23:01)
[2017-03-21] MEDS: LORazepam 0.5 MG TABLET PO PRN (04:02)
[2017-03-21] MEDS: LEVOTHYROXINE 112 MCG TABLET PO SCH (05:00)
[2017-03-21 05:54] VITALS: BP 125/61
[2017-03-21] MEDS: DOCUSATE SODIUM 100 MG CAPSULE PO SCH ×2 (11:53→19:53)
[2017-03-21] MEDS: AMOXICILLIN 250 MG CAPSULE PO SCH ×3 (11:53→19:53)
[2017-03-21] MEDS: MAGNESIUM OXIDE 400 MG TABLET PO SCH (11:54)
[2017-03-21] MEDS: ENOXAPARIN 40 MG/0.4 ML DISP.SYRIN. SQ SCH (11:54)
[2017-03-21] MEDS: LITHIUM CARBONATE 150 MG CAPSULE. PO SCH ×2 (11:54→19:53)
[2017-03-21] MEDS: risperiDONE 0.5 MG TABLET. PO SCH ×2 (11:54→19:55)
[2017-03-21] MEDS: LACTOBACILLUS ACIDOPH & BULGAR 1 TABLET. PO SCH ×2 (11:54→19:53)
[2017-03-21] MEDS: NAPROXEN 500 MG TABLET PO SCH ×2 (11:54→19:55)
[2017-03-21] MEDS: POLYETHYLENE GLYCOL 3350 17 GM PACKET. PO SCH (11:55)
[2017-03-21] MEDS: traZODone 50 MG TABLET. PO SCH ×3 (11:56→16:04)
[2017-03-21] MEDS: MAGNESIUM HYDROXIDE 2,400 MG/30 ML ORAL.SUSP. PO PRN (16:04)
[2017-03-21 16:15] VITALS: BP 115/64
[2017-03-21] MEDS: ATORVASTATIN CALCIUM 20 MG TABLET PO SCH (19:53)
[2017-03-21] MEDS: MIRTAZAPINE 15 MG TABLET PO SCH (19:55)
--- NOTE | 2017-03-21 22:10 | PDOC ---
Exam Jeanmarie Demential Exam: Jeanmarie Note: Please also refer to the separate dictated note~for this date of service dictated separately.~Patient seen individually. Discussed the patient with Nursing staff reviewed the chart.~Reviewed interim history and current functioning. Reviewed vital signs,~Labs/ Radiology~and current medications noted below. Continue current treatment with the changes noted in the dictated addendum note Assessment: Vital Signs: Vital Signs Date Time Temp Pulse Resp B/P (MAP) Pulse Ox O2 Delivery O2 Flow Rate FiO2 03/21/17 16:15 98.3 71 20 115/64 (81) 97 03/20/17 06:26 Room Air I&O Intake and Output 03/22/17 07:00 Intake Total 480 ml Balance 480 ml Intake Oral 480 ml # Voids 1 # Bowel Movements 1 Current Medications: Meds: Current Medications Lorazepam (Ativan) 0.5 mg 1X ONCE PO Last administered on 02/01/17 19:14; Start 02/01/17 at 19:15; Stop 02/01/17 at 19:16; Status DC Ceftriaxone Sodium (Rocephin Im) 1 gm 1X ONCE IM Last administered on 20:45; Start 02/01/17 at 20:30; Stop 02/01/17 at 20:31; Status DC Acetaminophen (Tylenol) 650 mg PRN Q6HRS PRN PO MILD PAIN / TEMP Last administered on 03/08/17 09:20; Start 02/01/17 at 23:15 Multi-Ingredient Ointment (Analgesic [place]) 1 rosita PRN QID PRN TP MUSCLE PAIN; Start 02/01/17 at 23:15 Al Hydroxide/Mg Hydroxide (Mylanta Plus Xs) 15 ml PRN AFTMEALHC PRN PO DYSPEPSIA; Start 02/01/17 at 23:15 Magnesium Hydroxide (Milk Of Magnesia) 2,400 mg PRN QHS PRN PO CONSTIPATION Last administered on 02/13/17 02:05; Start 02/01/17 at 23:15 Olanzapine (ZyPREXA) 5 mg HS PO Last administered on 02/13/17 19:31; Start at 21:00; Stop 02/14/17 at 18:51; Status DC Quetiapine Fumarate (SEROquel) 25 mg BID PO Last administered on 02/08/17 08: 42; Start 02/02/17 at 09:00; Stop 02/08/17 at 19:16; Status DC Sertraline HCl (Zoloft) 100 mg DAILY PO Last administered on 02/06/17 08:01; Start 02/02/17 at 09:00; Stop 02/06/17 at 18:56; Status DC Olanzapine (ZyPREXA) 5 mg 1X ONCE PO Last administered on 02/02/17 00:27; Start 02/02/17 at 00:30; Stop 02/02/17 at 00:31; Status DC Alprazolam (Xanax) 0.5 mg BID PO Last administered on 02/13/17 11:42; Start at 09:00; Stop 02/13/17 at 18:35; Status DC Lorazepam (Ativan) 0.5 mg PRN Q4HRS PRN PO ANXIETY / AGITATION Last administered on 02/02/17 14:57; Start 02/02/17 at 00:15; Stop 02/02/17 at 15:59 ; Status DC Levothyroxine Sodium (Synthroid) 112 mcg DAILY06 PO Last administered on 05:00; Start 02/02/17 at 10:00 Naproxen (Naprosyn) 500 mg BID PO Last administered on 03/21/17 19:55; Start 02/02/17 at 09:00 Atorvastatin Calcium (Lipitor) 40 mg QHS PO Last administered on 03/21/17 19: 53; Start 02/02/17 at 21:00 Mirtazapine (Remeron) 7.5 mg QHS PO Last administered on 02/20/17 23:08; Start 02/02/17 at 21:00; Stop 02/21/17 at 19:38; Status DC Olanzapine (ZyPREXA ZYDIS) 2.5 mg PRN Q2HR PRN PO PSYCHOSIS Last administered on 03/21/17 04:02; Start 02/02/17 at 15:45 Alprazolam (Xanax) 0.25 mg PRN Q2HR PRN PO ANXIETY / AGITATION Last administered on 02/13/17 16:33; Start 02/02/17 at 15:45; Stop 02/13/17 at 18:35 ; Status DC Docusate Sodium (Colace) 100 mg BID PO Last administered on 03/21/17 19:53; Start 02/02/17 at 21:00 Polyethylene Glycol (miraLAX) 17 gm DAILY PO Last administered on 03/21/17 11 :55; Start 02/03/17 at 09:00 Vitamin D (Vitamin D3) 50,000 unit WEEKLY PO Last administered on 03/17/17 07 :59; Start 02/10/17 at 09:00 Divalproex Sodium (Depakote Sprinkles) 125 mg TID@0900,1300,1700 PO Last administered on 02/06/17 16:46; Start 02/04/17 at 09:00; Stop 02/06/17 at 18:56 ; Status DC Divalproex Sodium (Depakote Sprinkles) 250 mg TID@0900,1300,1700 PO Last administered on 02/09/17 09:13; Start 02/07/17 at 09:00; Stop 02/09/17 at 13:03 ; Status DC Fluvoxamine Maleate (Luvox) 50 mg HS PO Last administered on 02/13/17 19:32; Start 02/06/17 at 21:00; Stop 02/14/17 at 18:51; Status DC Quetiapine Fumarate (SEROquel) 25 mg TID PO Last administered on 02/09/17 09: 16; Start 02/09/17 at 09:00; Stop 02/09/17 at 13:30; Status DC Divalproex Sodium (Depakote Sprinkles) 375 mg TID@0900,1300,1700 PO Last administered on 02/16/17 08:01; Start 02/09/17 at 13:00; Stop 02/16/17 at 19:13 ; Status DC Quetiapine Fumarate (SEROquel) 37.5 mg TID PO Last administered on 02/12/17 12 :55; Start 02/09/17 at 14:00; Stop 02/12/17 at 17:56; Status DC Olanzapine (ZyPREXA) 5 mg 1X ONCE PO Last administered on 02/12/17 11:57; Start 02/12/17 at 12:00; Stop 02/12/17 at 12:01; Status DC Quetiapine Fumarate (SEROquel) 50 mg TID PO Last administered on 02/19/17 13: 43; Start 02/12/17 at 21:00; Stop 02/19/17 at 18:29; Status DC Lorazepam (Ativan) 0.5 mg PRN Q2HR PRN PO ANXIETY / AGITATION Last administered on 03/21/17 04:02; Start 02/13/17 at 18:45 Lorazepam (Ativan) 0.5 mg BID PO Last administered on 02/16/17 08:04; Start at 21:00; Stop 02/17/17 at 17:37; Status DC Fluvoxamine Maleate (Luvox) 75 mg HS PO Last administered on 02/15/17 19:11; Start 02/14/17 at 21:00; Stop 02/16/17 at 22:01; Status DC Trazodone HCl (Desyrel) 12.5 mg TID PO Last administered on 02/14/17 19:39; Start 02/14/17 at 19:00; Stop 02/14/17 at 21:12; Status DC Trazodone HCl (Desyrel) 12.5 mg TIDWMEALS PO Last administered on 02/19/17 07: 57; Start 02/15/17 at 08:00; Stop 02/19/17 at 09:00; Status DC Fluvoxamine Maleate (Luvox) 100 mg HS PO Last administered on 02/27/17 19:14; Start 02/16/17 at 21:00; Stop 02/28/17 at 18:33; Status DC Lorazepam (Ativan) 0.25 mg BID PO Last administered on 02/18/17 20:06; Start 02/17/17 at 21:00; Stop 02/18/17 at 22:00; Status DC Trazodone HCl (Desyrel) 12.5 mg QID PO Last administered on 02/28/17 16:43; Start 02/19/17 at 09:00; Stop 02/28/17 at 18:19; Status DC Risperidone (RisperDAL) 0.125 mg TID@0900,1300,1700 PO Last administered on 17:31; Start 02/20/17 at 09:00; Stop 02/20/17 at 22:50; Status DC Mirtazapine (Remeron) 15 mg QHS PO Last administered on 03/13/17 20:15; Start 02/21/17 at 21:00; Stop 03/14/17 at 15:48; Status DC Trazodone HCl (Desyrel) 50 mg PRN QHS PRN PO INSOMNIA, SEPTEMBER REPEAT X1 Last administered on 02/23/17 00:34; Start 02/20/17 at 22:45; Stop 02/23/17 at 10:59 ; Status DC Risperidone (RisperDAL) 0.25 mg TID@0900,1300,1700 PO Last administered on 02/24 17:20; Start 02/21/17 at 09:00; Stop 02/24/17 at 19:06; Status DC Trazodone HCl (Desyrel) 100 mg PRN QHS PRN PO INSOMNIA, SEPTEMBER REPEAT X1 Last administered on 03/20/17 23:01; Start 02/23/17 at 11:15 Risperidone (RisperDAL) 0.375 mg TID@0900,1300,1700 PO Last administered on 16:26; Start 02/25/17 at 09:00; Stop 02/26/17 at 18:57; Status DC Carbamazepine (TEGretol) 200 mg QHS PO Last administered on 02/27/17 19:14; Start 02/24/17 at 21:00; Stop 02/28/17 at 18:19; Status DC Enoxaparin Sodium (Lovenox) 40 mg Q24H SQ Last administered on 03/11/17 11:55 ; Start 02/25/17 at 14:00; Stop 03/12/17 at 10:01; Status DC Cefpodoxime Proxetil (Vantin) 100 mg BID PO Last administered on 03/06/17 08: 37; Start 02/25/17 at 21:00; Stop 03/06/17 at 12:55; Status DC Risperidone (RisperDAL) 0.5 mg TID@0900,1300,1700 PO Last administered on 03/14 12:40; Start 02/27/17 at 09:00; Stop 03/14/17 at 15:48; Status DC Carbamazepine (TEGretol) 150 mg BID PO Last administered on 03/03/17 08:14; Start 02/28/17 at 21:00; Stop 03/03/17 at 18:20; Status DC Trazodone HCl (Desyrel) 25 mg TID@0900,1300,1700 PO Last administered on 17:34; Start 03/01/17 at 09:00; Stop 03/09/17 at 18:31; Status DC Fluvoxamine Maleate (Luvox) 150 mg HS PO Last administered on 03/20/17 19:25 ; Start 02/28/17 at 21:00; Stop 03/21/17 at 18:47; Status DC [place] Carbonate 300 mg QHS PO Last administered on 03/12/17 19:20; Start 03/02/17 at 21:00; Stop 03/13/17 at 14:53; Status DC Influenza Virus Vaccine Quadrival (Fluarix Quad [id number] Syringe) 0.5 ml ONCE ONCE VAX IM Last administered on 03/04/17 09:57; Start 03/04/17 at 09:00; Stop 03/04/17 at 09:01; Status DC [place] Carbonate 150 mg DAILY PO Last administered on 03/13/17 09:52; Start 03/06/17 at 09:00; Stop 03/13/17 at 14:53; Status DC [place] Carbonate 75 mg DAILY PO Last administered on 03/13/17 09:51; Start 03/09/17 at 09:00; Stop 03/13/17 at 14:53; Status DC Trazodone HCl (Desyrel) 25 mg BID@1300,1700 PO Last administered on 03/10/17 17:19; Start 03/10/17 at 13:00; Stop 03/10/17 at 19:29; Status DC Trazodone HCl (Desyrel) 50 mg DAILY PO ; Start 03/10/17 at 09:00; Stop at 19:29; Status DC Magnesium Oxide (Magnesium Oxide) 400 mg DAILY PO Last administered on 11:54; Start 03/11/17 at 09:00 Trazodone HCl (Desyrel) 50 mg BID94 PO Last administered on 03/20/17 16:28; Start 03/11/17 at 09:00; Stop 03/20/17 at 18:59; Status DC Trazodone HCl (Desyrel) 25 mg DAILYWLUN PO Last administered on 03/20/17 13: 37; Start 03/11/17 at 12:00; Stop 03/20/17 at 18:59; Status DC Hydroxyzine Pamoate (Vistaril) 25 mg PRN Q6HRS PRN PO AGITATION Last administered on 03/17/17 09:20; Start 03/12/17 at 10:00 Enoxaparin Sodium (Lovenox) 40 mg Q24H SQ Last administered on 03/21/17 11:54 ; Start 03/13/17 at 09:00 [place] Carbonate 150 mg BID PO Last administered on 03/21/17 19:53; Start 03/13/17 at 21:00 Mirtazapine (Remeron) 22.5 mg QHS PO Last administered on 03/21/17 19:55; Start 03/14/17 at 21:00 Risperidone (RisperDAL) 0.5 mg BID PO Last administered on 03/21/17 19:55; Start 03/14/17 at 21:00 Amoxicillin (Amoxil) 500 mg TID PO Last administered on 03/21/17 19:53; Start 03/17/17 at 19:30 Lactobacillus Acidophilus (Bacid, [place]-Bid) 1 tab BID PO Last administered on 03/21/17 19:53; Start 03/17/17 at 19:30 Trazodone HCl (Desyrel) 50 mg TID@0900,1400,1600 PO Last administered on 16:04; Start 03/21/17 at 09:00; Stop 03/21/17 at 18:47; Status DC Fluvoxamine Maleate (Luvox) 175 mg HS PO Last administered on 03/21/17 19:54 ; Start 03/21/17 at 21:00 Trazodone HCl (Desyrel) 75 mg TID@0900,1600 PO ; Start 03/22/17 at 09:00 Trazodone HCl (Desyrel) 50 mg 1400 PO ; Start 03/22/17 at 14:00 Active Scripts Active Reported Atorvastatin Calcium 40 Mg Tablet 40 Mg PO QHS Naproxen 500 Mg Tablet 500 Mg PO BID Lorazepam 0.5 Mg Tablet 0.5 Mg PO PRN Q4HRS PRN Seroquel (Quetiapine Fumarate) 25 Mg Tablet 25 Mg PO BID Zoloft (Sertraline Hcl) 100 Mg Tablet 100 Mg PO DAILY Levothyroxine Sodium 112 Mcg Tablet 112 Mcg PO DAILYAC Olanzapine 5 Mg Tablet 5 Mg PO HS Alprazolam 0.5 Mg Tablet 0.5 Mg PO BID Diagnosis: Problems: (1) Anxiety disorder (2) Bipolar 1 disorder, mixed, moderate (3) Dementia in Alzheimer's disease with delusions (4) Dementia in Alzheimer's disease with depression (5) Dementia, vascular, with depression (6) Dementia, vascular, with delusions (7) Impulse control disorder ELEANOR BILLS MD Mar 21, 2017 22:10
[2017-03-22] MEDS: LORazepam 0.5 MG TABLET PO PRN ×2 (00:02→19:21)
[2017-03-22] MEDS: traZODone 100 MG TABLET. PO PRN ×2 (00:02→19:21)
--- NOTE | 2017-03-22 01:58 | PN ---
DATE: 03/20/2017 PSYCHIATRIC PROGRESS NOTE This is a late entry for 03/20/2017, covers elements not covered in my initial note of 03/20/2017. SUBJECTIVE: I met with the patient the evening of 03/20/2017. She continues to yell, repetitive, loud, relentless "all day" per nursing report. She uses profanities for staff members calling them "pigs" amongst other profanities. REVIEW OF SYSTEMS: Ambulation impaired, in a Broda chair. No CV, , pulmonary, eye, ENT system symptoms on review. Reliability poor. MENTAL STATUS EXAM: Oriented to herself. Insight, judgment, recent and remote memory, attention, concentration, fund of knowledge poor, consistent with her diagnosis mentioned in my initial note. [place]pelar level 0.7 therapeutic. IMPRESSION: Unchanged from initial note. PLAN: Increase trazodone from 50 mg a.m., 25 mg at noon, 50 mg in the p.m. to 50 mg 3 times a day. Continue 100 mg at bedtime p.r.n., may repeat x 1. Maintain lithium, Risperdal, Remeron, Luvox, Vistaril p.r.n. at current dosage. May need to increase Luvox if above yelling and repetitive behaviors persist. The patient's presentation and treatment has been extremely challenging. She has failed multiple psychotropics. Unsure if we can do much more. Increase the Luvox and if needed, perhaps the trazodone further. I have discussed with social service staff to try to find appropriate placement for her. ELEANOR BILLS MD DR: [email or web address] JOB#: [id number] / [id number]
[2017-03-22] MEDS: LEVOTHYROXINE 112 MCG TABLET PO SCH (05:53)
[2017-03-22 06:00] VITALS: BP 104/66
[2017-03-22] MEDS: AMOXICILLIN 250 MG CAPSULE PO SCH ×3 (10:14→19:21)
[2017-03-22] MEDS: POLYETHYLENE GLYCOL 3350 17 GM PACKET. PO SCH (10:14)
[2017-03-22] MEDS: MAGNESIUM OXIDE 400 MG TABLET PO SCH (10:14)
[2017-03-22] MEDS: risperiDONE 0.5 MG TABLET. PO SCH ×2 (10:14→19:20)
[2017-03-22] MEDS: ENOXAPARIN 40 MG/0.4 ML DISP.SYRIN. SQ SCH (10:14)
[2017-03-22] MEDS: LACTOBACILLUS ACIDOPH & BULGAR 1 TABLET. PO SCH ×2 (10:15→19:22)
[2017-03-22] MEDS: NAPROXEN 500 MG TABLET PO SCH ×2 (10:15→19:22)
[2017-03-22] MEDS: LITHIUM CARBONATE 150 MG CAPSULE. PO SCH ×2 (10:15→19:21)
[2017-03-22] MEDS: traZODone 50 MG TABLET. PO SCH ×3 (10:15→16:20)
[2017-03-22] MEDS: DOCUSATE SODIUM 100 MG CAPSULE PO SCH ×2 (10:16→19:21)
[2017-03-22 16:35] VITALS: BP 144/70
[2017-03-22] MEDS: MIRTAZAPINE 15 MG TABLET PO SCH (19:21)
[2017-03-22] MEDS: ATORVASTATIN CALCIUM 20 MG TABLET PO SCH (19:22)
--- NOTE | 2017-03-22 20:54 | PDOC ---
Exam Jeanmarie Demential Exam: Jeanmarie Note: Please also refer to the separate dictated note~for this date of service dictated separately.~Patient seen individually. Discussed the patient with Nursing staff reviewed the chart.~Reviewed interim history and current functioning. Reviewed vital signs,~Labs/ Radiology~and current medications noted below. Continue current treatment with the changes noted in the dictated addendum note Assessment: Vital Signs: Vital Signs Date Time Temp Pulse Resp B/P (MAP) Pulse Ox O2 Delivery O2 Flow Rate FiO2 03/22/17 16:35 97.7 92 14 144/70 (94) 96 Room Air I&O Intake and Output 03/23/17 07:00 Intake Total 780 ml Balance 780 ml Intake Oral 780 ml # Bowel Movements 2 Current Medications: Meds: Current Medications Lorazepam (Ativan) 0.5 mg 1X ONCE PO Last administered on 02/01/17 19:14; Start 02/01/17 at 19:15; Stop 02/01/17 at 19:16; Status DC Ceftriaxone Sodium (Rocephin Im) 1 gm 1X ONCE IM Last administered on 20:45; Start 02/01/17 at 20:30; Stop 02/01/17 at 20:31; Status DC Acetaminophen (Tylenol) 650 mg PRN Q6HRS PRN PO MILD PAIN / TEMP Last administered on 03/08/17 09:20; Start 02/01/17 at 23:15 Multi-Ingredient Ointment (Analgesic [place]) 1 rosita PRN QID PRN TP MUSCLE PAIN; Start 02/01/17 at 23:15 Al Hydroxide/Mg Hydroxide (Mylanta Plus Xs) 15 ml PRN AFTMEALHC PRN PO DYSPEPSIA; Start 02/01/17 at 23:15 Magnesium Hydroxide (Milk Of Magnesia) 2,400 mg PRN QHS PRN PO CONSTIPATION Last administered on 02/13/17 02:05; Start 02/01/17 at 23:15 Olanzapine (ZyPREXA) 5 mg HS PO Last administered on 02/13/17 19:31; Start at 21:00; Stop 02/14/17 at 18:51; Status DC Quetiapine Fumarate (SEROquel) 25 mg BID PO Last administered on 02/08/17 08: 42; Start 02/02/17 at 09:00; Stop 02/08/17 at 19:16; Status DC Sertraline HCl (Zoloft) 100 mg DAILY PO Last administered on 02/06/17 08:01; Start 02/02/17 at 09:00; Stop 02/06/17 at 18:56; Status DC Olanzapine (ZyPREXA) 5 mg 1X ONCE PO Last administered on 02/02/17 00:27; Start 02/02/17 at 00:30; Stop 02/02/17 at 00:31; Status DC Alprazolam (Xanax) 0.5 mg BID PO Last administered on 02/13/17 11:42; Start at 09:00; Stop 02/13/17 at 18:35; Status DC Lorazepam (Ativan) 0.5 mg PRN Q4HRS PRN PO ANXIETY / AGITATION Last administered on 02/02/17 14:57; Start 02/02/17 at 00:15; Stop 02/02/17 at 15:59 ; Status DC Levothyroxine Sodium (Synthroid) 112 mcg DAILY06 PO Last administered on 05:53; Start 02/02/17 at 10:00 Naproxen (Naprosyn) 500 mg BID PO Last administered on 03/22/17 19:22; Start 02/02/17 at 09:00 Atorvastatin Calcium (Lipitor) 40 mg QHS PO Last administered on 03/22/17 19: 22; Start 02/02/17 at 21:00 Mirtazapine (Remeron) 7.5 mg QHS PO Last administered on 02/20/17 23:08; Start 02/02/17 at 21:00; Stop 02/21/17 at 19:38; Status DC Olanzapine (ZyPREXA ZYDIS) 2.5 mg PRN Q2HR PRN PO PSYCHOSIS Last administered on 03/22/17 00:02; Start 02/02/17 at 15:45 Alprazolam (Xanax) 0.25 mg PRN Q2HR PRN PO ANXIETY / AGITATION Last administered on 02/13/17 16:33; Start 02/02/17 at 15:45; Stop 02/13/17 at 18:35 ; Status DC Docusate Sodium (Colace) 100 mg BID PO Last administered on 03/22/17 19:21; Start 02/02/17 at 21:00 Polyethylene Glycol (miraLAX) 17 gm DAILY PO Last administered on 03/22/17 10: 14; Start 02/03/17 at 09:00 Vitamin D (Vitamin D3) 50,000 unit WEEKLY PO Last administered on 03/17/17 07 :59; Start 02/10/17 at 09:00 Divalproex Sodium (Depakote Sprinkles) 125 mg TID@0900,1300,1700 PO Last administered on 02/06/17 16:46; Start 02/04/17 at 09:00; Stop 02/06/17 at 18:56 ; Status DC Divalproex Sodium (Depakote Sprinkles) 250 mg TID@0900,1300,1700 PO Last administered on 02/09/17 09:13; Start 02/07/17 at 09:00; Stop 02/09/17 at 13:03 ; Status DC Fluvoxamine Maleate (Luvox) 50 mg HS PO Last administered on 02/13/17 19:32; Start 02/06/17 at 21:00; Stop 02/14/17 at 18:51; Status DC Quetiapine Fumarate (SEROquel) 25 mg TID PO Last administered on 02/09/17 09: 16; Start 02/09/17 at 09:00; Stop 02/09/17 at 13:30; Status DC Divalproex Sodium (Depakote Sprinkles) 375 mg TID@0900,1300,1700 PO Last administered on 02/16/17 08:01; Start 02/09/17 at 13:00; Stop 02/16/17 at 19:13 ; Status DC Quetiapine Fumarate (SEROquel) 37.5 mg TID PO Last administered on 02/12/17 12 :55; Start 02/09/17 at 14:00; Stop 02/12/17 at 17:56; Status DC Olanzapine (ZyPREXA) 5 mg 1X ONCE PO Last administered on 02/12/17 11:57; Start 02/12/17 at 12:00; Stop 02/12/17 at 12:01; Status DC Quetiapine Fumarate (SEROquel) 50 mg TID PO Last administered on 02/19/17 13: 43; Start 02/12/17 at 21:00; Stop 02/19/17 at 18:29; Status DC Lorazepam (Ativan) 0.5 mg PRN Q2HR PRN PO ANXIETY / AGITATION Last administered on 03/22/17 19:21; Start 02/13/17 at 18:45 Lorazepam (Ativan) 0.5 mg BID PO Last administered on 02/16/17 08:04; Start at 21:00; Stop 02/17/17 at 17:37; Status DC Fluvoxamine Maleate (Luvox) 75 mg HS PO Last administered on 02/15/17 19:11; Start 02/14/17 at 21:00; Stop 02/16/17 at 22:01; Status DC Trazodone HCl (Desyrel) 12.5 mg TID PO Last administered on 02/14/17 19:39; Start 02/14/17 at 19:00; Stop 02/14/17 at 21:12; Status DC Trazodone HCl (Desyrel) 12.5 mg TIDWMEALS PO Last administered on 02/19/17 07: 57; Start 02/15/17 at 08:00; Stop 02/19/17 at 09:00; Status DC Fluvoxamine Maleate (Luvox) 100 mg HS PO Last administered on 02/27/17 19:14; Start 02/16/17 at 21:00; Stop 02/28/17 at 18:33; Status DC Lorazepam (Ativan) 0.25 mg BID PO Last administered on 02/18/17 20:06; Start 02/17/17 at 21:00; Stop 02/18/17 at 22:00; Status DC Trazodone HCl (Desyrel) 12.5 mg QID PO Last administered on 02/28/17 16:43; Start 02/19/17 at 09:00; Stop 02/28/17 at 18:19; Status DC Risperidone (RisperDAL) 0.125 mg TID@0900,1300,1700 PO Last administered on 17:31; Start 02/20/17 at 09:00; Stop 02/20/17 at 22:50; Status DC Mirtazapine (Remeron) 15 mg QHS PO Last administered on 03/13/17 20:15; Start 02/21/17 at 21:00; Stop 03/14/17 at 15:48; Status DC Trazodone HCl (Desyrel) 50 mg PRN QHS PRN PO INSOMNIA, SEPTEMBER REPEAT X1 Last administered on 02/23/17 00:34; Start 02/20/17 at 22:45; Stop 02/23/17 at 10:59 ; Status DC Risperidone (RisperDAL) 0.25 mg TID@0900,1300,1700 PO Last administered on 02/24 17:20; Start 02/21/17 at 09:00; Stop 02/24/17 at 19:06; Status DC Trazodone HCl (Desyrel) 100 mg PRN QHS PRN PO INSOMNIA, SEPTEMBER REPEAT X1 Last administered on 03/22/17 19:21; Start 02/23/17 at 11:15 Risperidone (RisperDAL) 0.375 mg TID@0900,1300,1700 PO Last administered on 16:26; Start 02/25/17 at 09:00; Stop 02/26/17 at 18:57; Status DC Carbamazepine (TEGretol) 200 mg QHS PO Last administered on 02/27/17 19:14; Start 02/24/17 at 21:00; Stop 02/28/17 at 18:19; Status DC Enoxaparin Sodium (Lovenox) 40 mg Q24H SQ Last administered on 03/11/17 11:55 ; Start 02/25/17 at 14:00; Stop 03/12/17 at 10:01; Status DC Cefpodoxime Proxetil (Vantin) 100 mg BID PO Last administered on 03/06/17 08: 37; Start 02/25/17 at 21:00; Stop 03/06/17 at 12:55; Status DC Risperidone (RisperDAL) 0.5 mg TID@0900,1300,1700 PO Last administered on 03/14 12:40; Start 02/27/17 at 09:00; Stop 03/14/17 at 15:48; Status DC Carbamazepine (TEGretol) 150 mg BID PO Last administered on 03/03/17 08:14; Start 02/28/17 at 21:00; Stop 03/03/17 at 18:20; Status DC Trazodone HCl (Desyrel) 25 mg TID@0900,1300,1700 PO Last administered on 17:34; Start 03/01/17 at 09:00; Stop 03/09/17 at 18:31; Status DC Fluvoxamine Maleate (Luvox) 150 mg HS PO Last administered on 03/20/17 19:25 ; Start 02/28/17 at 21:00; Stop 03/21/17 at 18:47; Status DC [place] Carbonate 300 mg QHS PO Last administered on 03/12/17 19:20; Start 03/02/17 at 21:00; Stop 03/13/17 at 14:53; Status DC Influenza Virus Vaccine Quadrival (Fluarix Quad 5281-8442 Syringe) 0.5 ml ONCE ONCE VAX IM Last administered on 03/04/17 09:57; Start 03/04/17 at 09:00; Stop 03/04/17 at 09:01; Status DC [place] Carbonate 150 mg DAILY PO Last administered on 03/13/17 09:52; Start 03/06/17 at 09:00; Stop 03/13/17 at 14:53; Status DC [place] Carbonate 75 mg DAILY PO Last administered on 03/13/17 09:51; Start 03/09/17 at 09:00; Stop 03/13/17 at 14:53; Status DC Trazodone HCl (Desyrel) 25 mg BID@1300,1700 PO Last administered on 03/10/17 17:19; Start 03/10/17 at 13:00; Stop 03/10/17 at 19:29; Status DC Trazodone HCl (Desyrel) 50 mg DAILY PO ; Start 03/10/17 at 09:00; Stop at 19:29; Status DC Magnesium Oxide (Magnesium Oxide) 400 mg DAILY PO Last administered on 10:14; Start 03/11/17 at 09:00 Trazodone HCl (Desyrel) 50 mg BID94 PO Last administered on 03/20/17 16:28; Start 03/11/17 at 09:00; Stop 03/20/17 at 18:59; Status DC Trazodone HCl (Desyrel) 25 mg DAILYWLUN PO Last administered on 03/20/17 13: 37; Start 03/11/17 at 12:00; Stop 03/20/17 at 18:59; Status DC Hydroxyzine Pamoate (Vistaril) 25 mg PRN Q6HRS PRN PO AGITATION Last administered on 03/17/17 09:20; Start 03/12/17 at 10:00 Enoxaparin Sodium (Lovenox) 40 mg Q24H SQ Last administered on 03/22/17 10:14 ; Start 03/13/17 at 09:00 [place] Carbonate 150 mg BID PO Last administered on 03/22/17 19:21; Start at 21:00 Mirtazapine (Remeron) 22.5 mg QHS PO Last administered on 03/22/17 19:21; Start 03/14/17 at 21:00 Risperidone (RisperDAL) 0.5 mg BID PO Last administered on 03/22/17 19:20; Start 03/14/17 at 21:00 Amoxicillin (Amoxil) 500 mg TID PO Last administered on 03/22/17 19:21; Start 03/17/17 at 19:30 Lactobacillus Acidophilus (Bacid, Kelly-Bid) 1 tab BID PO Last administered on 03/22/17 19:22; Start 03/17/17 at 19:30 Trazodone HCl (Desyrel) 50 mg TID@0900,1400,1600 PO Last administered on 16:04; Start 03/21/17 at 09:00; Stop 03/21/17 at 18:47; Status DC Fluvoxamine Maleate (Luvox) 175 mg HS PO Last administered on 03/22/17 19:20; Start 03/21/17 at 21:00 Trazodone HCl (Desyrel) 75 mg TID@0900,1600 PO Last administered on 03/22/17 16:20; Start 03/22/17 at 09:00 Trazodone HCl (Desyrel) 50 mg 1400 PO Last administered on 03/22/17t 13:37; Start 03/22/17 at 14:00 Active Scripts Active Reported Atorvastatin Calcium 40 Mg Tablet 40 Mg PO QHS Naproxen 500 Mg Tablet 500 Mg PO BID Lorazepam 0.5 Mg Tablet 0.5 Mg PO PRN Q4HRS PRN Seroquel (Quetiapine Fumarate) 25 Mg Tablet 25 Mg PO BID Zoloft (Sertraline Hcl) 100 Mg Tablet 100 Mg PO DAILY Levothyroxine Sodium 112 Mcg Tablet 112 Mcg PO DAILYAC Olanzapine 5 Mg Tablet 5 Mg PO HS Alprazolam 0.5 Mg Tablet 0.5 Mg PO BID Diagnosis: Problems: (1) Anxiety disorder (2) Bipolar 1 disorder, mixed, moderate (3) Dementia in Alzheimer's disease with delusions (4) Dementia in Alzheimer's disease with depression (5) Dementia, vascular, with depression (6) Dementia, vascular, with delusions (7) Impulse control disorder ELEANOR BILLS MD Mar 22, 2017 20:54
[2017-03-23] MEDS: LORazepam 0.5 MG TABLET PO PRN ×2 (01:42→19:33)
[2017-03-23] MEDS: traZODone 100 MG TABLET. PO PRN ×2 (01:42→19:33)
--- NOTE | 2017-03-23 01:58 | PN ---
DATE: 03/21/2017 PSYCHIATRIC PROGRESS NOTE This is a late entry for 03/21/2017, covers elements not covered in my initial note of 03/21/2017. SUBJECTIVE: I met with the patient the evening of 03/21/2017. The patient continues to yell, is repetitive, loud, disruptive, abrasive, abusive and nothing we have done so far has been very helpful including multiple complicated changes in her psychotropics. She slept 2-1/2 hours previous evening. REVIEW OF SYSTEMS: Ambulation impaired in Broda chair. No CV, , pulmonary, eye, ENT system symptoms on review. Reliability poor. MENTAL STATUS EXAM: Oriented to herself. Insight, judgment, recent and remote memory, attention, concentration, fund of knowledge poor, consistent with her diagnosis mentioned in my initial note. PLAN: Continue current psychotropics. Increase Luvox from 150 mg at bedtime to 175 mg at bedtime, trazodone from 50 mg 3 times a day to 75 mg twice a day, 50 mg in the afternoon. Continue rest, unchanged. Reviewed drug interactions. Risk/benefit ratio favors no further change. MAN Aden BILLS MD DR: JAIME/meli JOB#: [id number] / [id number]
[2017-03-23] MEDS: LEVOTHYROXINE 112 MCG TABLET PO SCH (05:52)
[2017-03-23 06:20] VITALS: BP 129/68
[2017-03-23] MEDS: ENOXAPARIN 40 MG/0.4 ML DISP.SYRIN. SQ SCH (08:58)
[2017-03-23] MEDS: AMOXICILLIN 250 MG CAPSULE PO SCH ×3 (08:58→19:28)
[2017-03-23] MEDS: POLYETHYLENE GLYCOL 3350 17 GM PACKET. PO SCH (08:58)
[2017-03-23] MEDS: NAPROXEN 500 MG TABLET PO SCH ×2 (08:59→19:29)
[2017-03-23] MEDS: LACTOBACILLUS ACIDOPH & BULGAR 1 TABLET. PO SCH ×2 (08:59→19:29)
[2017-03-23] MEDS: traZODone 50 MG TABLET. PO SCH ×3 (08:59→17:10)
[2017-03-23] MEDS: risperiDONE 0.5 MG TABLET. PO SCH ×2 (09:00→19:28)
[2017-03-23] MEDS: MAGNESIUM OXIDE 400 MG TABLET PO SCH (09:00)
[2017-03-23] MEDS: DOCUSATE SODIUM 100 MG CAPSULE PO SCH ×2 (09:00→19:28)
[2017-03-23] MEDS: LITHIUM CARBONATE 150 MG CAPSULE. PO SCH ×2 (09:00→19:28)
[2017-03-23 16:26] VITALS: BP 133/61
[2017-03-23] MEDS: ATORVASTATIN CALCIUM 20 MG TABLET PO SCH (19:28)
[2017-03-23] MEDS: MIRTAZAPINE 15 MG TABLET PO SCH (19:28)
--- NOTE | 2017-03-23 20:51 | PDOC ---
Exam Jeanmarie Demential Exam: Jeanmarie Note: Please also refer to the separate dictated note~for this date of service dictated separately.~Patient seen individually. Discussed the patient with Nursing staff reviewed the chart.~Reviewed interim history and current functioning. Reviewed vital signs,~Labs/ Radiology~and current medications noted below. Continue current treatment with the changes noted in the dictated addendum note Assessment: Vital Signs: Vital Signs Date Time Temp Pulse Resp B/P (MAP) Pulse Ox O2 Delivery O2 Flow Rate FiO2 03/23/17 16:26 98.4 94 18 133/61 (85) 93 Room Air I&O Intake and Output 03/24/17 07:00 Intake Total 840 ml Balance 840 ml Intake Oral 840 ml # Bowel Movements 1 Current Medications: Meds: Current Medications Lorazepam (Ativan) 0.5 mg 1X ONCE PO Last administered on 02/01/17 19:14; Start 02/01/17 at 19:15; Stop 02/01/17 at 19:16; Status DC Ceftriaxone Sodium (Rocephin Im) 1 gm 1X ONCE IM Last administered on 20:45; Start 02/01/17 at 20:30; Stop 02/01/17 at 20:31; Status DC Acetaminophen (Tylenol) 650 mg PRN Q6HRS PRN PO MILD PAIN / TEMP Last administered on 03/08/17 09:20; Start 02/01/17 at 23:15 Multi-Ingredient Ointment (Analgesic [place]) 1 rosita PRN QID PRN TP MUSCLE PAIN; Start 02/01/17 at 23:15 Al Hydroxide/Mg Hydroxide (Mylanta Plus Xs) 15 ml PRN AFTMEALHC PRN PO DYSPEPSIA; Start 02/01/17 at 23:15 Magnesium Hydroxide (Milk Of Magnesia) 2,400 mg PRN QHS PRN PO CONSTIPATION Last administered on 02/13/17 02:05; Start 02/01/17 at 23:15 Olanzapine (ZyPREXA) 5 mg HS PO Last administered on 02/13/17 19:31; Start at 21:00; Stop 02/14/17 at 18:51; Status DC Quetiapine Fumarate (SEROquel) 25 mg BID PO Last administered on 02/08/17 08: 42; Start 02/02/17 at 09:00; Stop 02/08/17 at 19:16; Status DC Sertraline HCl (Zoloft) 100 mg DAILY PO Last administered on 02/06/17 08:01; Start 02/02/17 at 09:00; Stop 02/06/17 at 18:56; Status DC Olanzapine (ZyPREXA) 5 mg 1X ONCE PO Last administered on 02/02/17 00:27; Start 02/02/17 at 00:30; Stop 02/02/17 at 00:31; Status DC Alprazolam (Xanax) 0.5 mg BID PO Last administered on 02/13/17 11:42; Start at 09:00; Stop 02/13/17 at 18:35; Status DC Lorazepam (Ativan) 0.5 mg PRN Q4HRS PRN PO ANXIETY / AGITATION Last administered on 02/02/17 14:57; Start 02/02/17 at 00:15; Stop 02/02/17 at 15:59 ; Status DC Levothyroxine Sodium (Synthroid) 112 mcg DAILY06 PO Last administered on 05:52; Start 02/02/17 at 10:00 Naproxen (Naprosyn) 500 mg BID PO Last administered on 03/23/17 19:29; Start 02/02/17 at 09:00 Atorvastatin Calcium (Lipitor) 40 mg QHS PO Last administered on 03/23/17 19: 28; Start 02/02/17 at 21:00 Mirtazapine (Remeron) 7.5 mg QHS PO Last administered on 02/20/17 23:08; Start 02/02/17 at 21:00; Stop 02/21/17 at 19:38; Status DC Olanzapine (ZyPREXA ZYDIS) 2.5 mg PRN Q2HR PRN PO PSYCHOSIS Last administered on 03/23/17 19:39; Start 02/02/17 at 15:45 Alprazolam (Xanax) 0.25 mg PRN Q2HR PRN PO ANXIETY / AGITATION Last administered on 02/13/17 16:33; Start 02/02/17 at 15:45; Stop 02/13/17 at 18:35 ; Status DC Docusate Sodium (Colace) 100 mg BID PO Last administered on 03/23/17 19:28; Start 02/02/17 at 21:00 Polyethylene Glycol (miraLAX) 17 gm DAILY PO Last administered on 03/23/17 08: 58; Start 02/03/17 at 09:00 Vitamin D (Vitamin D3) 50,000 unit WEEKLY PO Last administered on 03/17/17 07 :59; Start 02/10/17 at 09:00 Divalproex Sodium (Depakote Sprinkles) 125 mg TID@0900,1300,1700 PO Last administered on 02/06/17 16:46; Start 02/04/17 at 09:00; Stop 02/06/17 at 18:56 ; Status DC Divalproex Sodium (Depakote Sprinkles) 250 mg TID@0900,1300,1700 PO Last administered on 02/09/17 09:13; Start 02/07/17 at 09:00; Stop 02/09/17 at 13:03 ; Status DC Fluvoxamine Maleate (Luvox) 50 mg HS PO Last administered on 02/13/17 19:32; Start 02/06/17 at 21:00; Stop 02/14/17 at 18:51; Status DC Quetiapine Fumarate (SEROquel) 25 mg TID PO Last administered on 02/09/17 09: 16; Start 02/09/17 at 09:00; Stop 02/09/17 at 13:30; Status DC Divalproex Sodium (Depakote Sprinkles) 375 mg TID@0900,1300,1700 PO Last administered on 02/16/17 08:01; Start 02/09/17 at 13:00; Stop 02/16/17 at 19:13 ; Status DC Quetiapine Fumarate (SEROquel) 37.5 mg TID PO Last administered on 02/12/17 12 :55; Start 02/09/17 at 14:00; Stop 02/12/17 at 17:56; Status DC Olanzapine (ZyPREXA) 5 mg 1X ONCE PO Last administered on 02/12/17 11:57; Start 02/12/17 at 12:00; Stop 02/12/17 at 12:01; Status DC Quetiapine Fumarate (SEROquel) 50 mg TID PO Last administered on 02/19/17 13: 43; Start 02/12/17 at 21:00; Stop 02/19/17 at 18:29; Status DC Lorazepam (Ativan) 0.5 mg PRN Q2HR PRN PO ANXIETY / AGITATION Last administered on 03/23/17 19:33; Start 02/13/17 at 18:45 Lorazepam (Ativan) 0.5 mg BID PO Last administered on 02/16/17 08:04; Start at 21:00; Stop 02/17/17 at 17:37; Status DC Fluvoxamine Maleate (Luvox) 75 mg HS PO Last administered on 02/15/17 19:11; Start 02/14/17 at 21:00; Stop 02/16/17 at 22:01; Status DC Trazodone HCl (Desyrel) 12.5 mg TID PO Last administered on 02/14/17 19:39; Start 02/14/17 at 19:00; Stop 02/14/17 at 21:12; Status DC Trazodone HCl (Desyrel) 12.5 mg TIDWMEALS PO Last administered on 02/19/17 07: 57; Start 02/15/17 at 08:00; Stop 02/19/17 at 09:00; Status DC Fluvoxamine Maleate (Luvox) 100 mg HS PO Last administered on 02/27/17 19:14; Start 02/16/17 at 21:00; Stop 02/28/17 at 18:33; Status DC Lorazepam (Ativan) 0.25 mg BID PO Last administered on 02/18/17 20:06; Start 02/17/17 at 21:00; Stop 02/18/17 at 22:00; Status DC Trazodone HCl (Desyrel) 12.5 mg QID PO Last administered on 02/28/17 16:43; Start 02/19/17 at 09:00; Stop 02/28/17 at 18:19; Status DC Risperidone (RisperDAL) 0.125 mg TID@0900,1300,1700 PO Last administered on 17:31; Start 02/20/17 at 09:00; Stop 02/20/17 at 22:50; Status DC Mirtazapine (Remeron) 15 mg QHS PO Last administered on 03/13/17 20:15; Start 02/21/17 at 21:00; Stop 03/14/17 at 15:48; Status DC Trazodone HCl (Desyrel) 50 mg PRN QHS PRN PO INSOMNIA, MAY REPEAT X1 Last administered on 02/23/17 00:34; Start 02/20/17 at 22:45; Stop 02/23/17 at 10:59 ; Status DC Risperidone (RisperDAL) 0.25 mg TID@0900,1300,1700 PO Last administered on 02/24 17:20; Start 02/21/17 at 09:00; Stop 02/24/17 at 19:06; Status DC Trazodone HCl (Desyrel) 100 mg PRN QHS PRN PO INSOMNIA, SEPTEMBER REPEAT X1 Last administered on 03/23/17 19:33; Start 02/23/17 at 11:15 Risperidone (RisperDAL) 0.375 mg TID@0900,1300,1700 PO Last administered on 16:26; Start 02/25/17 at 09:00; Stop 02/26/17 at 18:57; Status DC Carbamazepine (TEGretol) 200 mg QHS PO Last administered on 02/27/17 19:14; Start 02/24/17 at 21:00; Stop 02/28/17 at 18:19; Status DC Enoxaparin Sodium (Lovenox) 40 mg Q24H SQ Last administered on 03/11/17 11:55 ; Start 02/25/17 at 14:00; Stop 03/12/17 at 10:01; Status DC Cefpodoxime Proxetil (Vantin) 100 mg BID PO Last administered on 03/06/17 08: 37; Start 02/25/17 at 21:00; Stop 03/06/17 at 12:55; Status DC Risperidone (RisperDAL) 0.5 mg TID@0900,1300,1700 PO Last administered on 03/14 12:40; Start 02/27/17 at 09:00; Stop 03/14/17 at 15:48; Status DC Carbamazepine (TEGretol) 150 mg BID PO Last administered on 03/03/17 08:14; Start 02/28/17 at 21:00; Stop 03/03/17 at 18:20; Status DC Trazodone HCl (Desyrel) 25 mg TID@0900,1300,1700 PO Last administered on 17:34; Start 03/01/17 at 09:00; Stop 03/09/17 at 18:31; Status DC Fluvoxamine Maleate (Luvox) 150 mg HS PO Last administered on 03/20/17 19:25 ; Start 02/28/17 at 21:00; Stop 03/21/17 at 18:47; Status DC [place] Carbonate 300 mg QHS PO Last administered on 03/12/17 19:20; Start 03/02/17 at 21:00; Stop 03/13/17 at 14:53; Status DC Influenza Virus Vaccine Quadrival (Fluarix Quad [id number] Syringe) 0.5 ml ONCE ONCE VAX IM Last administered on 03/04/17 09:57; Start 03/04/17 at 09:00; Stop 03/04/17 at 09:01; Status DC [place] Carbonate 150 mg DAILY PO Last administered on 03/13/17 09:52; Start 03/06/17 at 09:00; Stop 03/13/17 at 14:53; Status DC [place] Carbonate 75 mg DAILY PO Last administered on 03/13/17 09:51; Start 03/09/17 at 09:00; Stop 03/13/17 at 14:53; Status DC Trazodone HCl (Desyrel) 25 mg BID@1300,1700 PO Last administered on 03/10/17 17:19; Start 03/10/17 at 13:00; Stop 03/10/17 at 19:29; Status DC Trazodone HCl (Desyrel) 50 mg DAILY PO ; Start 03/10/17 at 09:00; Stop at 19:29; Status DC Magnesium Oxide (Magnesium Oxide) 400 mg DAILY PO Last administered on 09:00; Start 03/11/17 at 09:00 Trazodone HCl (Desyrel) 50 mg BID94 PO Last administered on 03/20/17 16:28; Start 03/11/17 at 09:00; Stop 03/20/17 at 18:59; Status DC Trazodone HCl (Desyrel) 25 mg DAILYWLUN PO Last administered on 03/20/17 13: 37; Start 03/11/17 at 12:00; Stop 03/20/17 at 18:59; Status DC Hydroxyzine Pamoate (Vistaril) 25 mg PRN Q6HRS PRN PO AGITATION Last administered on 03/17/17 09:20; Start 03/12/17 at 10:00 Enoxaparin Sodium (Lovenox) 40 mg Q24H SQ Last administered on 03/23/17 08:58 ; Start 03/13/17 at 09:00 [place] Carbonate 150 mg BID PO Last administered on 03/23/17 19:28; Start at 21:00 Mirtazapine (Remeron) 22.5 mg QHS PO Last administered on 03/23/17 19:28; Start 03/14/17 at 21:00 Risperidone (RisperDAL) 0.5 mg BID PO Last administered on 03/23/17 19:28; Start 03/14/17 at 21:00 Amoxicillin (Amoxil) 500 mg TID PO Last administered on 03/23/17 19:28; Start 03/17/17 at 19:30 Lactobacillus Acidophilus (Bacid, Kelly-Bid) 1 tab BID PO Last administered on 03/23/17 19:29; Start 03/17/17 at 19:30 Trazodone HCl (Desyrel) 50 mg TID@0900,1400,1600 PO Last administered on 16:04; Start 03/21/17 at 09:00; Stop 03/21/17 at 18:47; Status DC Fluvoxamine Maleate (Luvox) 175 mg HS PO Last administered on 03/23/17 19:27; Start 03/21/17 at 21:00 Trazodone HCl (Desyrel) 75 mg TID@0900,1600 PO Last administered on 03/23/17 17:10; Start 03/22/17 at 09:00; Stop 03/23/17 at 18:52; Status DC Trazodone HCl (Desyrel) 50 mg 1400 PO Last administered on 03/23/17t 14:08; Start 03/22/17 at 14:00; Stop 03/23/17 at 18:52; Status DC Trazodone HCl (Desyrel) 100 mg TID@0900,1600 PO ; Start 03/24/17 at 09:00 Trazodone HCl (Desyrel) 75 mg DAILY@1400 PO ; Start 03/24/17 at 14:00 Active Scripts Active Reported Atorvastatin Calcium 40 Mg Tablet 40 Mg PO QHS Naproxen 500 Mg Tablet 500 Mg PO BID Lorazepam 0.5 Mg Tablet 0.5 Mg PO PRN Q4HRS PRN Seroquel (Quetiapine Fumarate) 25 Mg Tablet 25 Mg PO BID Zoloft (Sertraline Hcl) 100 Mg Tablet 100 Mg PO DAILY Levothyroxine Sodium 112 Mcg Tablet 112 Mcg PO DAILYAC Olanzapine 5 Mg Tablet 5 Mg PO HS Alprazolam 0.5 Mg Tablet 0.5 Mg PO BID Diagnosis: Problems: (1) Anxiety disorder (2) Bipolar 1 disorder, mixed, moderate (3) Dementia in Alzheimer's disease with delusions (4) Dementia in Alzheimer's disease with depression (5) Dementia, vascular, with depression (6) Dementia, vascular, with delusions (7) Impulse control disorder ELEANOR BILLS MD Mar 23, 2017 20:51
[2017-03-24 06:15] VITALS: BP 136/84
[2017-03-24] MEDS: LEVOTHYROXINE 112 MCG TABLET PO SCH (06:20)
--- NOTE | 2017-03-24 07:46 | PN ---
DATE: PSYCHIATRIC PROGRESS NOTE DATE OF SERVICE: 03/22/2017. This is a late entry, date of service 03/22/2017 covers elements not covered in my initial note of 03/22/2017. SUBJECTIVE: The patient was staffed at a treatment team meeting with the entire team morning of 03/22/2017, seen individually evening of 03/22/2017. The patient continues to have marked mood lability, agitation, yelling repetitively even when someone is sitting with her one-on-one. These behaviors persist, which is something that was better in the past. We have made multiple varied in very specific changes in her psychotropics to help control all of this with limited results so far and no facility is willing to accept the patient in this condition per social service report. REVIEW OF SYSTEMS: Ambulation impaired, in a Broda chair. No CV, , pulmonary, eye, ENT system symptoms on review. Reliability poor. MENTAL STATUS EXAM: Oriented to herself. Insight, judgment, recent and remote memory, attention, concentration, fund of knowledge poor, consistent with her diagnosis mentioned in my initial note. PLAN: Starting 03/23/2017, we will increase the trazodone to 100 mg 3 times a day, maintain the rest of the psychotropics mentioned in my initial note. Reviewed drug interactions risk and benefits ratio. There is no further change for now and further options for changes in psychotropics seem limited. ELEANOR BILLS MD DR: JAIME/meli JOB#: [id number] / [id number]
[2017-03-24] MEDS: AMOXICILLIN 250 MG CAPSULE PO SCH ×3 (09:05→19:54)
[2017-03-24] MEDS: LITHIUM CARBONATE 150 MG CAPSULE. PO SCH (09:05)
[2017-03-24] MEDS: DOCUSATE SODIUM 100 MG CAPSULE PO SCH ×2 (09:05→19:54)
[2017-03-24] MEDS: CHOLECALCIFEROL (VITAMIN D3) 50,000 UNIT CAPSULE PO SCH (09:05)
[2017-03-24] MEDS: risperiDONE 0.5 MG TABLET. PO SCH ×2 (09:05→19:54)
[2017-03-24] MEDS: MAGNESIUM OXIDE 400 MG TABLET PO SCH (09:05)
[2017-03-24] MEDS: LACTOBACILLUS ACIDOPH & BULGAR 1 TABLET. PO SCH ×2 (09:05→19:54)
[2017-03-24] MEDS: ENOXAPARIN 40 MG/0.4 ML DISP.SYRIN. SQ SCH (09:05)
[2017-03-24] MEDS: POLYETHYLENE GLYCOL 3350 17 GM PACKET. PO SCH (09:05)
[2017-03-24] MEDS: traZODone 50 MG TABLET. PO SCH ×3 (09:06→18:25)
[2017-03-24] MEDS: NAPROXEN 500 MG TABLET PO SCH ×2 (09:06→19:56)
[2017-03-24 15:43] LABS: BACTERIA,URINE 0 /HPF (0-FEW); BILIRUBIN,URINE NEG (NEG); CLARITY,URINE CLEAR; COLOR,URINE YELLOW; GLUCOSE,URINE NEG (NEG); NITRITE,URINE NEG (NEG); RBC,URINE 0 /HPF (0-2); UROBILINOGEN,URINE 0.2 mg/dL (0.2 mg/dL)
[2017-03-24 16:17] VITALS: BP 145/70
[2017-03-24] MEDS: ATORVASTATIN CALCIUM 20 MG TABLET PO SCH (19:54)
[2017-03-24] MEDS: MIRTAZAPINE 15 MG TABLET PO SCH (19:55)
[2017-03-24] MEDS: LORazepam 0.5 MG TABLET PO PRN ×2 (19:55→23:40)
[2017-03-24] MEDS: traZODone 100 MG TABLET. PO PRN (19:56)
--- NOTE | 2017-03-24 21:00 | PDOC ---
Exam Jeanmarie Demential Exam: Jeanmarie Note: Please also refer to the separate dictated note~for this date of service dictated separately.~Patient seen individually. Discussed the patient with Nursing staff reviewed the chart.~Reviewed interim history and current functioning. Reviewed vital signs,~Labs/ Radiology~and current medications noted below. Continue current treatment with the changes noted in the dictated addendum note Assessment: Vital Signs: Vital Signs Date Time Temp Pulse Resp B/P (MAP) Pulse Ox O2 Delivery O2 Flow Rate FiO2 03/24/17 16:17 98.2 95 16 145/70 (95) 93 03/23/17 16:26 Room Air I&O Intake and Output 03/25/17 07:00 Intake Total 840 ml Output Total 650 ml Balance 190 ml Intake Oral 840 ml Output Urine Total 650 ml Labs: Laboratory Tests Test 03/24/17 15:15 Urine Collection Type U cath Urine Color Yellow Urine Clarity Clear Urine pH 7.0 Urine Specific [place] 1.015 Urine Protein Neg (NEG-TRACE) Urine Glucose (UA) Neg mg/dL (NEG) Urine Ketones (Stick) Neg mg/dL (NEG) Urine Blood Neg (NEG) Urine Nitrite Neg (NEG) Urine Bilirubin Neg (NEG) Urine Urobilinogen Dipstick 0.2 mg/dL (0.2 mg/dL) Urine Leukocyte Esterase Small (NEG) Urine RBC 0 /HPF (0-2) Urine WBC 5-10 /HPF (0-4) Urine Squamous Epithelial Cells None /LPF Urine Bacteria 0 /HPF (0-FEW) Urine Mucus Slight /LPF Current Medications: Meds: Current Medications Lorazepam (Ativan) 0.5 mg 1X ONCE PO Last administered on 02/01/17 19:14; Start 02/01/17 at 19:15; Stop 02/01/17 at 19:16; Status DC Ceftriaxone Sodium (Rocephin Im) 1 gm 1X ONCE IM Last administered on 20:45; Start 02/01/17 at 20:30; Stop 02/01/17 at 20:31; Status DC Acetaminophen (Tylenol) 650 mg PRN Q6HRS PRN PO MILD PAIN / TEMP Last administered on 03/08/17 09:20; Start 02/01/17 at 23:15 Multi-Ingredient Ointment (Analgesic [place]) 1 rosita PRN QID PRN TP MUSCLE PAIN; Start 02/01/17 at 23:15 Al Hydroxide/Mg Hydroxide (Mylanta Plus Xs) 15 ml PRN AFTMEALHC PRN PO DYSPEPSIA; Start 02/01/17 at 23:15 Magnesium Hydroxide (Milk Of Magnesia) 2,400 mg PRN QHS PRN PO CONSTIPATION Last administered on 02/13/17 02:05; Start 02/01/17 at 23:15 Olanzapine (ZyPREXA) 5 mg HS PO Last administered on 02/13/17 19:31; Start at 21:00; Stop 02/14/17 at 18:51; Status DC Quetiapine Fumarate (SEROquel) 25 mg BID PO Last administered on 02/08/17 08: 42; Start 02/02/17 at 09:00; Stop 02/08/17 at 19:16; Status DC Sertraline HCl (Zoloft) 100 mg DAILY PO Last administered on 02/06/17 08:01; Start 02/02/17 at 09:00; Stop 02/06/17 at 18:56; Status DC Olanzapine (ZyPREXA) 5 mg 1X ONCE PO Last administered on 02/02/17 00:27; Start 02/02/17 at 00:30; Stop 02/02/17 at 00:31; Status DC Alprazolam (Xanax) 0.5 mg BID PO Last administered on 02/13/17 11:42; Start at 09:00; Stop 02/13/17 at 18:35; Status DC Lorazepam (Ativan) 0.5 mg PRN Q4HRS PRN PO ANXIETY / AGITATION Last administered on 02/02/17 14:57; Start 02/02/17 at 00:15; Stop 02/02/17 at 15:59 ; Status DC Levothyroxine Sodium (Synthroid) 112 mcg DAILY06 PO Last administered on 06:20; Start 02/02/17 at 10:00 Naproxen (Naprosyn) 500 mg BID PO Last administered on 03/24/17 19:56; Start 02/02/17 at 09:00 Atorvastatin Calcium (Lipitor) 40 mg QHS PO Last administered on 03/24/17 19: 54; Start 02/02/17 at 21:00 Mirtazapine (Remeron) 7.5 mg QHS PO Last administered on 02/20/17 23:08; Start 02/02/17 at 21:00; Stop 02/21/17 at 19:38; Status DC Olanzapine (ZyPREXA ZYDIS) 2.5 mg PRN Q2HR PRN PO PSYCHOSIS Last administered on 03/24/17 19:56; Start 02/02/17 at 15:45 Alprazolam (Xanax) 0.25 mg PRN Q2HR PRN PO ANXIETY / AGITATION Last administered on 02/13/17 16:33; Start 02/02/17 at 15:45; Stop 02/13/17 at 18:35 ; Status DC Docusate Sodium (Colace) 100 mg BID PO Last administered on 03/24/17 19:54; Start 02/02/17 at 21:00 Polyethylene Glycol (miraLAX) 17 gm DAILY PO Last administered on 03/24/17 09: 05; Start 02/03/17 at 09:00 Vitamin D (Vitamin D3) 50,000 unit WEEKLY PO Last administered on 03/24/17 09: 05; Start 02/10/17 at 09:00 Divalproex Sodium (Depakote Sprinkles) 125 mg TID@0900,1300,1700 PO Last administered on 02/06/17 16:46; Start 02/04/17 at 09:00; Stop 02/06/17 at 18:56 ; Status DC Divalproex Sodium (Depakote Sprinkles) 250 mg TID@0900,1300,1700 PO Last administered on 02/09/17 09:13; Start 02/07/17 at 09:00; Stop 02/09/17 at 13:03 ; Status DC Fluvoxamine Maleate (Luvox) 50 mg HS PO Last administered on 02/13/17 19:32; Start 02/06/17 at 21:00; Stop 02/14/17 at 18:51; Status DC Quetiapine Fumarate (SEROquel) 25 mg TID PO Last administered on 02/09/17 09: 16; Start 02/09/17 at 09:00; Stop 02/09/17 at 13:30; Status DC Divalproex Sodium (Depakote Sprinkles) 375 mg TID@0900,1300,1700 PO Last administered on 02/16/17 08:01; Start 02/09/17 at 13:00; Stop 02/16/17 at 19:13 ; Status DC Quetiapine Fumarate (SEROquel) 37.5 mg TID PO Last administered on 02/12/17 12 :55; Start 02/09/17 at 14:00; Stop 02/12/17 at 17:56; Status DC Olanzapine (ZyPREXA) 5 mg 1X ONCE PO Last administered on 02/12/17 11:57; Start 02/12/17 at 12:00; Stop 02/12/17 at 12:01; Status DC Quetiapine Fumarate (SEROquel) 50 mg TID PO Last administered on 02/19/17 13: 43; Start 02/12/17 at 21:00; Stop 02/19/17 at 18:29; Status DC Lorazepam (Ativan) 0.5 mg PRN Q2HR PRN PO ANXIETY / AGITATION Last administered on 03/24/17 19:55; Start 02/13/17 at 18:45 Lorazepam (Ativan) 0.5 mg BID PO Last administered on 02/16/17 08:04; Start at 21:00; Stop 02/17/17 at 17:37; Status DC Fluvoxamine Maleate (Luvox) 75 mg HS PO Last administered on 02/15/17 19:11; Start 02/14/17 at 21:00; Stop 02/16/17 at 22:01; Status DC Trazodone HCl (Desyrel) 12.5 mg TID PO Last administered on 02/14/17 19:39; Start 02/14/17 at 19:00; Stop 02/14/17 at 21:12; Status DC Trazodone HCl (Desyrel) 12.5 mg TIDWMEALS PO Last administered on 02/19/17 07: 57; Start 02/15/17 at 08:00; Stop 02/19/17 at 09:00; Status DC Fluvoxamine Maleate (Luvox) 100 mg HS PO Last administered on 02/27/17 19:14; Start 02/16/17 at 21:00; Stop 02/28/17 at 18:33; Status DC Lorazepam (Ativan) 0.25 mg BID PO Last administered on 02/18/17 20:06; Start 02/17/17 at 21:00; Stop 02/18/17 at 22:00; Status DC Trazodone HCl (Desyrel) 12.5 mg QID PO Last administered on 02/28/17 16:43; Start 02/19/17 at 09:00; Stop 02/28/17 at 18:19; Status DC Risperidone (RisperDAL) 0.125 mg TID@0900,1300,1700 PO Last administered on 17:31; Start 02/20/17 at 09:00; Stop 02/20/17 at 22:50; Status DC Mirtazapine (Remeron) 15 mg QHS PO Last administered on 03/13/17 20:15; Start 02/21/17 at 21:00; Stop 03/14/17 at 15:48; Status DC Trazodone HCl (Desyrel) 50 mg PRN QHS PRN PO INSOMNIA, MAY REPEAT X1 Last administered on 02/23/17 00:34; Start 02/20/17 at 22:45; Stop 02/23/17 at 10:59 ; Status DC Risperidone (RisperDAL) 0.25 mg TID@0900,1300,1700 PO Last administered on 02/24 17:20; Start 02/21/17 at 09:00; Stop 02/24/17 at 19:06; Status DC Trazodone HCl (Desyrel) 100 mg PRN QHS PRN PO INSOMNIA, MAY REPEAT X1 Last administered on 03/24/17 19:56; Start 02/23/17 at 11:15 Risperidone (RisperDAL) 0.375 mg TID@0900,1300,1700 PO Last administered on 16:26; Start 02/25/17 at 09:00; Stop 02/26/17 at 18:57; Status DC Carbamazepine (TEGretol) 200 mg QHS PO Last administered on 02/27/17 19:14; Start 02/24/17 at 21:00; Stop 02/28/17 at 18:19; Status DC Enoxaparin Sodium (Lovenox) 40 mg Q24H SQ Last administered on 03/11/17 11:55 ; Start 02/25/17 at 14:00; Stop 03/12/17 at 10:01; Status DC Cefpodoxime Proxetil (Vantin) 100 mg BID PO Last administered on 03/06/17 08: 37; Start 02/25/17 at 21:00; Stop 03/06/17 at 12:55; Status DC Risperidone (RisperDAL) 0.5 mg TID@0900,1300,1700 PO Last administered on 03/14 12:40; Start 02/27/17 at 09:00; Stop 03/14/17 at 15:48; Status DC Carbamazepine (TEGretol) 150 mg BID PO Last administered on 03/03/17 08:14; Start 02/28/17 at 21:00; Stop 03/03/17 at 18:20; Status DC Trazodone HCl (Desyrel) 25 mg TID@0900,1300,1700 PO Last administered on 17:34; Start 03/01/17 at 09:00; Stop 03/09/17 at 18:31; Status DC Fluvoxamine Maleate (Luvox) 150 mg HS PO Last administered on 03/20/17 19:25 ; Start 02/28/17 at 21:00; Stop 03/21/17 at 18:47; Status DC [place] Carbonate 300 mg QHS PO Last administered on 03/12/17 19:20; Start 03/02/17 at 21:00; Stop 03/13/17 at 14:53; Status DC Influenza Virus Vaccine Quadrival (Fluarix Quad 0720-2850 Syringe) 0.5 ml ONCE ONCE VAX IM Last administered on 03/04/17 09:57; Start 03/04/17 at 09:00; Stop 03/04/17 at 09:01; Status DC [place] Carbonate 150 mg DAILY PO Last administered on 03/13/17 09:52; Start 03/06/17 at 09:00; Stop 03/13/17 at 14:53; Status DC [place] Carbonate 75 mg DAILY PO Last administered on 03/13/17 09:51; Start 03/09/17 at 09:00; Stop 03/13/17 at 14:53; Status DC Trazodone HCl (Desyrel) 25 mg BID@1300,1700 PO Last administered on 03/10/17 17:19; Start 03/10/17 at 13:00; Stop 03/10/17 at 19:29; Status DC Trazodone HCl (Desyrel) 50 mg DAILY PO ; Start 03/10/17 at 09:00; Stop at 19:29; Status DC Magnesium Oxide (Magnesium Oxide) 400 mg DAILY PO Last administered on 09:05; Start 03/11/17 at 09:00 Trazodone HCl (Desyrel) 50 mg BID94 PO Last administered on 03/20/17 16:28; Start 03/11/17 at 09:00; Stop 03/20/17 at 18:59; Status DC Trazodone HCl (Desyrel) 25 mg DAILYWLUN PO Last administered on 03/20/17 13: 37; Start 03/11/17 at 12:00; Stop 03/20/17 at 18:59; Status DC Hydroxyzine Pamoate (Vistaril) 25 mg PRN Q6HRS PRN PO AGITATION Last administered on 03/17/17 09:20; Start 03/12/17 at 10:00 Enoxaparin Sodium (Lovenox) 40 mg Q24H SQ Last administered on 03/24/17 09:05 ; Start 03/13/17 at 09:00 [place] Carbonate 150 mg BID PO Last administered on 03/24/17 09:05; Start at 21:00; Stop 03/24/17 at 18:31; Status DC Mirtazapine (Remeron) 22.5 mg QHS PO Last administered on 03/24/17 19:55; Start 03/14/17 at 21:00 Risperidone (RisperDAL) 0.5 mg BID PO Last administered on 03/24/17 19:54; Start 03/14/17 at 21:00 Amoxicillin (Amoxil) 500 mg TID PO Last administered on 03/24/17 19:54; Start 03/17/17 at 19:30 Lactobacillus Acidophilus (Bacid, Kelly-Bid) 1 tab BID PO Last administered on 03/24/17 19:54; Start 03/17/17 at 19:30 Trazodone HCl (Desyrel) 50 mg TID@0900,1400,1600 PO Last administered on 16:04; Start 03/21/17 at 09:00; Stop 03/21/17 at 18:47; Status DC Fluvoxamine Maleate (Luvox) 175 mg HS PO Last administered on 03/23/17 19:27; Start 03/21/17 at 21:00; Stop 03/24/17 at 18:31; Status DC Trazodone HCl (Desyrel) 75 mg TID@0900,1600 PO Last administered on 03/23/17 17:10; Start 03/22/17 at 09:00; Stop 03/23/17 at 18:52; Status DC Trazodone HCl (Desyrel) 50 mg 1400 PO Last administered on 03/23/17 14:08; Start 03/22/17 at 14:00; Stop 03/23/17 at 18:52; Status DC Trazodone HCl (Desyrel) 100 mg TID@0900,1600 PO Last administered on 03/24/17 18:25; Start 03/24/17 at 09:00 Trazodone HCl (Desyrel) 75 mg DAILY@1400 PO Last administered on 03/24/17 14: 40; Start 03/24/17 at 14:00 Fluvoxamine Maleate (Luvox) 200 mg HS PO Last administered on 03/24/17 19:55; Start 03/24/17 at 21:00 Active Scripts Active Reported Atorvastatin Calcium 40 Mg Tablet 40 Mg PO QHS Naproxen 500 Mg Tablet 500 Mg PO BID Lorazepam 0.5 Mg Tablet 0.5 Mg PO PRN Q4HRS PRN Seroquel (Quetiapine Fumarate) 25 Mg Tablet 25 Mg PO BID Zoloft (Sertraline Hcl) 100 Mg Tablet 100 Mg PO DAILY Levothyroxine Sodium 112 Mcg Tablet 112 Mcg PO DAILYAC Olanzapine 5 Mg Tablet 5 Mg PO HS Alprazolam 0.5 Mg Tablet 0.5 Mg PO BID Diagnosis: Problems: (1) Anxiety disorder (2) Bipolar 1 disorder, mixed, moderate (3) Dementia in Alzheimer's disease with delusions (4) Dementia in Alzheimer's disease with depression (5) Dementia, vascular, with depression (6) Dementia, vascular, with delusions (7) Impulse control disorder ELEANOR BILLS MD Mar 24, 2017 21:00
[2017-03-25] MEDS: LEVOTHYROXINE 112 MCG TABLET PO SCH (05:06)
[2017-03-25 06:05] VITALS: BP 122/55
[2017-03-25] MEDS: AMOXICILLIN 250 MG CAPSULE PO SCH ×3 (06:58→20:49)
[2017-03-25] MEDS: NAPROXEN 500 MG TABLET PO SCH ×2 (06:58→20:50)
[2017-03-25] MEDS: DOCUSATE SODIUM 100 MG CAPSULE PO SCH ×2 (06:58→20:50)
[2017-03-25] MEDS: POLYETHYLENE GLYCOL 3350 17 GM PACKET. PO SCH (06:59)
[2017-03-25] MEDS: risperiDONE 0.5 MG TABLET. PO SCH ×2 (06:59→20:49)
[2017-03-25] MEDS: MAGNESIUM OXIDE 400 MG TABLET PO SCH (06:59)
[2017-03-25] MEDS: LACTOBACILLUS ACIDOPH & BULGAR 1 TABLET. PO SCH ×2 (06:59→20:50)
[2017-03-25] MEDS: traZODone 50 MG TABLET. PO SCH ×3 (06:59→18:02)
[2017-03-25] MEDS: ENOXAPARIN 40 MG/0.4 ML DISP.SYRIN. SQ SCH (06:59)
--- NOTE | 2017-03-25 09:20 | PN ---
DATE: 03/24/2017 SUBJECTIVE: This late entry date of service 03/23/2017 covers elements not covered in my initial note of 03/23/2017. Met with the patient evening of 03/23/2017. The patient continues to have marked mood lability, yelling constantly, hollering much of the day with very brief periods of absence. Takes her medications crushed. REVIEW OF SYSTEMS: Ambulation impaired, in a Broda chair. No CV, , pulmonary, eye, ENT system symptoms on review. Reliability poor. MENTAL STATUS EXAM: Oriented to herself. Insight, judgment, recent and remote memory, attention, concentration, fund of knowledge poor, consistent with her diagnosis mentioned in my initial note. IMPRESSION: Unchanged from initial note. PLAN: Increase the trazodone to 100 mg at 0900 and 1600 and 75 mg at 1400. Maintain the rest of her psychotropics, review drug interactions. Risk benefit ratio favors no further change. ELEANOR BILLS MD DR: JAIME/meli JOB#: [id number] / [id number]
[2017-03-25 16:15] VITALS: BP 153/91
[2017-03-25] MEDS: MIRTAZAPINE 15 MG TABLET PO SCH (20:49)
[2017-03-25] MEDS: ATORVASTATIN CALCIUM 20 MG TABLET PO SCH (20:49)
[2017-03-25] MEDS: DIVALPROEX 125 MG CAP.SPRINK PO SCH (20:51)
[2017-03-25] MEDS: traZODone 100 MG TABLET. PO PRN (20:53)
--- NOTE | 2017-03-25 22:30 | PN ---
DATE: 03/24/2017 This is a late entry for date of service 03/24/2017 and covers elements not covered in my initial note of 03/24/2017. I met with the patient the evening of 03/24/2017. The patient has been yelling all day. Per nursing report, there is little benefit from all her psychotropics of the multiple myriad changes we made in these to help with the above. She has had some bladder retention. Nursing staff feel this started after we initiated the lithium and there has been no improvement in her moods after lithium was started. We will go ahead and stop the lithium as a consequence of this. REVIEW OF SYSTEMS: Ambulation impaired, in a Broda chair. No CV, , pulmonary, eye, ENT system symptoms on review. MENTAL STATUS EXAM: Oriented to herself. Insight, judgment, recent and remote memory, attention, concentration, fund of knowledge poor, consistent with her diagnosis as mentioned in my initial note. PLAN: Stop lithium, increase Luvox from 175 mg at bedtime to 200 mg at bedtime. Continue rest unchanged. Reviewed drug interactions, risk/benefit ratio favors no further change for now. The patient is extremely complex, unresponsive to multiple psychotropic changes and I have also incorporated changes suggested by Dr. [place] all to relatively to avail or far. ELEANOR BILLS MD DR: JAIME/meli JOB#: [id number] / [id number]
--- NOTE | 2017-03-25 23:56 | PDOC ---
Exam Jeanmarie Demential Exam: Jeanmarie Note: Please also refer to the separate dictated note~for this date of service dictated separately.~Patient seen individually. Discussed the patient with Nursing staff reviewed the chart.~Reviewed interim history and current functioning. Reviewed vital signs,~Labs/ Radiology~and current medications noted below. Continue current treatment with the changes noted in the dictated addendum note Assessment: Vital Signs: Vital Signs Date Time Temp Pulse Resp B/P (MAP) Pulse Ox O2 Delivery O2 Flow Rate FiO2 03/25/17 16:15 98.6 87 20 153/91 (111) 97 03/23/17 16:26 Room Air I&O Intake and Output 03/26/17 07:00 Intake Total 1080 ml Balance 1080 ml Intake Oral 1080 ml # Bowel Movements 1 Current Medications: Meds: Current Medications Lorazepam (Ativan) 0.5 mg 1X ONCE PO Last administered on 02/01/17 19:14; Start 02/01/17 at 19:15; Stop 02/01/17 at 19:16; Status DC Ceftriaxone Sodium (Rocephin Im) 1 gm 1X ONCE IM Last administered on 20:45; Start 02/01/17 at 20:30; Stop 02/01/17 at 20:31; Status DC Acetaminophen (Tylenol) 650 mg PRN Q6HRS PRN PO MILD PAIN / TEMP Last administered on 03/08/17 09:20; Start 02/01/17 at 23:15 Multi-Ingredient Ointment (Analgesic [place]) 1 rostia PRN QID PRN TP MUSCLE PAIN; Start 02/01/17 at 23:15 Al Hydroxide/Mg Hydroxide (Mylanta Plus Xs) 15 ml PRN AFTMEALHC PRN PO DYSPEPSIA; Start 02/01/17 at 23:15 Magnesium Hydroxide (Milk Of Magnesia) 2,400 mg PRN QHS PRN PO CONSTIPATION Last administered on 02/13/17 02:05; Start 02/01/17 at 23:15 Olanzapine (ZyPREXA) 5 mg HS PO Last administered on 02/13/17 19:31; Start at 21:00; Stop 02/14/17 at 18:51; Status DC Quetiapine Fumarate (SEROquel) 25 mg BID PO Last administered on 02/08/17 08: 42; Start 02/02/17 at 09:00; Stop 02/08/17 at 19:16; Status DC Sertraline HCl (Zoloft) 100 mg DAILY PO Last administered on 02/06/17 08:01; Start 02/02/17 at 09:00; Stop 02/06/17 at 18:56; Status DC Olanzapine (ZyPREXA) 5 mg 1X ONCE PO Last administered on 02/02/17 00:27; Start 02/02/17 at 00:30; Stop 02/02/17 at 00:31; Status DC Alprazolam (Xanax) 0.5 mg BID PO Last administered on 02/13/17 11:42; Start at 09:00; Stop 02/13/17 at 18:35; Status DC Lorazepam (Ativan) 0.5 mg PRN Q4HRS PRN PO ANXIETY / AGITATION Last administered on 02/02/17 14:57; Start 02/02/17 at 00:15; Stop 02/02/17 at 15:59 ; Status DC Levothyroxine Sodium (Synthroid) 112 mcg DAILY06 PO Last administered on 05:06; Start 02/02/17 at 10:00 Naproxen (Naprosyn) 500 mg BID PO Last administered on 03/25/17 20:50; Start 02/02/17 at 09:00 Atorvastatin Calcium (Lipitor) 40 mg QHS PO Last administered on 03/25/17 20: 49; Start 02/02/17 at 21:00 Mirtazapine (Remeron) 7.5 mg QHS PO Last administered on 02/20/17 23:08; Start 02/02/17 at 21:00; Stop 02/21/17 at 19:38; Status DC Olanzapine (ZyPREXA ZYDIS) 2.5 mg PRN Q2HR PRN PO PSYCHOSIS Last administered on 03/25/17 18:02; Start 02/02/17 at 15:45 Alprazolam (Xanax) 0.25 mg PRN Q2HR PRN PO ANXIETY / AGITATION Last administered on 02/13/17 16:33; Start 02/02/17 at 15:45; Stop 02/13/17 at 18:35 ; Status DC Docusate Sodium (Colace) 100 mg BID PO Last administered on 03/25/17 20:50; Start 02/02/17 at 21:00 Polyethylene Glycol (miraLAX) 17 gm DAILY PO Last administered on 03/25/17 06: 59; Start 02/03/17 at 09:00 Vitamin D (Vitamin D3) 50,000 unit WEEKLY PO Last administered on 03/24/17 09: 05; Start 02/10/17 at 09:00 Divalproex Sodium (Depakote Sprinkles) 125 mg TID@0900,1300,1700 PO Last administered on 02/06/17 16:46; Start 02/04/17 at 09:00; Stop 02/06/17 at 18:56 ; Status DC Divalproex Sodium (Depakote Sprinkles) 250 mg TID@0900,1300,1700 PO Last administered on 02/09/17 09:13; Start 02/07/17 at 09:00; Stop 02/09/17 at 13:03 ; Status DC Fluvoxamine Maleate (Luvox) 50 mg HS PO Last administered on 02/13/17 19:32; Start 02/06/17 at 21:00; Stop 02/14/17 at 18:51; Status DC Quetiapine Fumarate (SEROquel) 25 mg TID PO Last administered on 02/09/17 09: 16; Start 02/09/17 at 09:00; Stop 02/09/17 at 13:30; Status DC Divalproex Sodium (Depakote Sprinkles) 375 mg TID@0900,1300,1700 PO Last administered on 02/16/17 08:01; Start 02/09/17 at 13:00; Stop 02/16/17 at 19:13 ; Status DC Quetiapine Fumarate (SEROquel) 37.5 mg TID PO Last administered on 02/12/17 12 :55; Start 02/09/17 at 14:00; Stop 02/12/17 at 17:56; Status DC Olanzapine (ZyPREXA) 5 mg 1X ONCE PO Last administered on 02/12/17 11:57; Start 02/12/17 at 12:00; Stop 02/12/17 at 12:01; Status DC Quetiapine Fumarate (SEROquel) 50 mg TID PO Last administered on 02/19/17 13: 43; Start 02/12/17 at 21:00; Stop 02/19/17 at 18:29; Status DC Lorazepam (Ativan) 0.5 mg PRN Q2HR PRN PO ANXIETY / AGITATION Last administered on 03/24/17 23:40; Start 02/13/17 at 18:45 Lorazepam (Ativan) 0.5 mg BID PO Last administered on 02/16/17 08:04; Start at 21:00; Stop 02/17/17 at 17:37; Status DC Fluvoxamine Maleate (Luvox) 75 mg HS PO Last administered on 02/15/17 19:11; Start 02/14/17 at 21:00; Stop 02/16/17 at 22:01; Status DC Trazodone HCl (Desyrel) 12.5 mg TID PO Last administered on 02/14/17 19:39; Start 02/14/17 at 19:00; Stop 02/14/17 at 21:12; Status DC Trazodone HCl (Desyrel) 12.5 mg TIDWMEALS PO Last administered on 02/19/17 07: 57; Start 02/15/17 at 08:00; Stop 02/19/17 at 09:00; Status DC Fluvoxamine Maleate (Luvox) 100 mg HS PO Last administered on 02/27/17 19:14; Start 02/16/17 at 21:00; Stop 02/28/17 at 18:33; Status DC Lorazepam (Ativan) 0.25 mg BID PO Last administered on 02/18/17 20:06; Start 02/17/17 at 21:00; Stop 02/18/17 at 22:00; Status DC Trazodone HCl (Desyrel) 12.5 mg QID PO Last administered on 02/28/17 16:43; Start 02/19/17 at 09:00; Stop 02/28/17 at 18:19; Status DC Risperidone (RisperDAL) 0.125 mg TID@0900,1300,1700 PO Last administered on 17:31; Start 02/20/17 at 09:00; Stop 02/20/17 at 22:50; Status DC Mirtazapine (Remeron) 15 mg QHS PO Last administered on 03/13/17 20:15; Start 02/21/17 at 21:00; Stop 03/14/17 at 15:48; Status DC Trazodone HCl (Desyrel) 50 mg PRN QHS PRN PO INSOMNIA, SEPTEMBER REPEAT X1 Last administered on 02/23/17 00:34; Start 02/20/17 at 22:45; Stop 02/23/17 at 10:59 ; Status DC Risperidone (RisperDAL) 0.25 mg TID@0900,1300,1700 PO Last administered on 02/24 17:20; Start 02/21/17 at 09:00; Stop 02/24/17 at 19:06; Status DC Trazodone HCl (Desyrel) 100 mg PRN QHS PRN PO INSOMNIA, SEPTEMBER REPEAT X1 Last administered on 03/25/17 20:53; Start 02/23/17 at 11:15 Risperidone (RisperDAL) 0.375 mg TID@0900,1300,1700 PO Last administered on 16:26; Start 02/25/17 at 09:00; Stop 02/26/17 at 18:57; Status DC Carbamazepine (TEGretol) 200 mg QHS PO Last administered on 02/27/17 19:14; Start 02/24/17 at 21:00; Stop 02/28/17 at 18:19; Status DC Enoxaparin Sodium (Lovenox) 40 mg Q24H SQ Last administered on 03/11/17 11:55 ; Start 02/25/17 at 14:00; Stop 03/12/17 at 10:01; Status DC Cefpodoxime Proxetil (Vantin) 100 mg BID PO Last administered on 03/06/17 08: 37; Start 02/25/17 at 21:00; Stop 03/06/17 at 12:55; Status DC Risperidone (RisperDAL) 0.5 mg TID@0900,1300,1700 PO Last administered on 03/14 12:40; Start 02/27/17 at 09:00; Stop 03/14/17 at 15:48; Status DC Carbamazepine (TEGretol) 150 mg BID PO Last administered on 03/03/17 08:14; Start 02/28/17 at 21:00; Stop 03/03/17 at 18:20; Status DC Trazodone HCl (Desyrel) 25 mg TID@0900,1300,1700 PO Last administered on 17:34; Start 03/01/17 at 09:00; Stop 03/09/17 at 18:31; Status DC Fluvoxamine Maleate (Luvox) 150 mg HS PO Last administered on 03/20/17 19:25 ; Start 02/28/17 at 21:00; Stop 03/21/17 at 18:47; Status DC [place] Carbonate 300 mg QHS PO Last administered on 03/12/17 19:20; Start 03/02/17 at 21:00; Stop 03/13/17 at 14:53; Status DC Influenza Virus Vaccine Quadrival (Fluarix Quad 8071-8446 Syringe) 0.5 ml ONCE ONCE VAX IM Last administered on 03/04/17 09:57; Start 03/04/17 at 09:00; Stop 03/04/17 at 09:01; Status DC [place] Carbonate 150 mg DAILY PO Last administered on 03/13/17 09:52; Start 03/06/17 at 09:00; Stop 03/13/17 at 14:53; Status DC [place] Carbonate 75 mg DAILY PO Last administered on 03/13/17 09:51; Start 03/09/17 at 09:00; Stop 03/13/17 at 14:53; Status DC Trazodone HCl (Desyrel) 25 mg BID@1300,1700 PO Last administered on 03/10/17 17:19; Start 03/10/17 at 13:00; Stop 03/10/17 at 19:29; Status DC Trazodone HCl (Desyrel) 50 mg DAILY PO ; Start 03/10/17 at 09:00; Stop at 19:29; Status DC Magnesium Oxide (Magnesium Oxide) 400 mg DAILY PO Last administered on 06:59; Start 03/11/17 at 09:00 Trazodone HCl (Desyrel) 50 mg BID94 PO Last administered on 03/20/17 16:28; Start 03/11/17 at 09:00; Stop 03/20/17 at 18:59; Status DC Trazodone HCl (Desyrel) 25 mg DAILYWLUN PO Last administered on 03/20/17 13: 37; Start 03/11/17 at 12:00; Stop 03/20/17 at 18:59; Status DC Hydroxyzine Pamoate (Vistaril) 25 mg PRN Q6HRS PRN PO AGITATION Last administered on 03/17/17 09:20; Start 03/12/17 at 10:00 Enoxaparin Sodium (Lovenox) 40 mg Q24H SQ Last administered on 03/25/17 06:59 ; Start 03/13/17 at 09:00 [place] Carbonate 150 mg BID PO Last administered on 03/24/17 09:05; Start at 21:00; Stop 03/24/17 at 18:31; Status DC Mirtazapine (Remeron) 22.5 mg QHS PO Last administered on 03/25/17 20:49; Start 03/14/17 at 21:00 Risperidone (RisperDAL) 0.5 mg BID PO Last administered on 03/25/17 20:49; Start 03/14/17 at 21:00 Amoxicillin (Amoxil) 500 mg TID PO Last administered on 03/25/17 20:49; Start 03/17/17 at 19:30 Lactobacillus Acidophilus (Bacid, [place]-Bid) 1 tab BID PO Last administered on 03/25/17 20:50; Start 03/17/17 at 19:30 Trazodone HCl (Desyrel) 50 mg TID@0900,1400,1600 PO Last administered on 16:04; Start 03/21/17 at 09:00; Stop 03/21/17 at 18:47; Status DC Fluvoxamine Maleate (Luvox) 175 mg HS PO Last administered on 03/23/17 19:27; Start 03/21/17 at 21:00; Stop 03/24/17 at 18:31; Status DC Trazodone HCl (Desyrel) 75 mg TID@0900,1600 PO Last administered on 03/23/17 17:10; Start 03/22/17 at 09:00; Stop 03/23/17 at 18:52; Status DC Trazodone HCl (Desyrel) 50 mg 1400 PO Last administered on 03/23/17 14:08; Start 03/22/17 at 14:00; Stop 03/23/17 at 18:52; Status DC Trazodone HCl (Desyrel) 100 mg TID@0900,1600 PO Last administered on 03/25/17 18:02; Start 03/24/17 at 09:00 Trazodone HCl (Desyrel) 75 mg DAILY@1400 PO Last administered on 03/25/17 13: 31; Start 03/24/17 at 14:00 Fluvoxamine Maleate (Luvox) 200 mg HS PO Last administered on 03/25/17 20:49; Start 03/24/17 at 21:00 Divalproex Sodium (Depakote Sprinkles) 250 mg BID PO Last administered on 20:51; Start 03/25/17 at 21:00 Active Scripts Active Reported Atorvastatin Calcium 40 Mg Tablet 40 Mg PO QHS Naproxen 500 Mg Tablet 500 Mg PO BID Lorazepam 0.5 Mg Tablet 0.5 Mg PO PRN Q4HRS PRN Seroquel (Quetiapine Fumarate) 25 Mg Tablet 25 Mg PO BID Zoloft (Sertraline Hcl) 100 Mg Tablet 100 Mg PO DAILY Levothyroxine Sodium 112 Mcg Tablet 112 Mcg PO DAILYAC Olanzapine 5 Mg Tablet 5 Mg PO HS Alprazolam 0.5 Mg Tablet 0.5 Mg PO BID ELEANOR BILLS MD Mar 25, 2017 23:56
[2017-03-26] MEDS: LEVOTHYROXINE 112 MCG TABLET PO SCH (06:07)
[2017-03-26] MEDS: AMOXICILLIN 250 MG CAPSULE PO SCH ×3 (07:34→21:10)
[2017-03-26] MEDS: LACTOBACILLUS ACIDOPH & BULGAR 1 TABLET. PO SCH ×2 (07:35→21:15)
[2017-03-26] MEDS: risperiDONE 0.5 MG TABLET. PO SCH ×2 (07:35→21:13)
[2017-03-26] MEDS: NAPROXEN 500 MG TABLET PO SCH ×2 (07:35→21:13)
[2017-03-26] MEDS: MAGNESIUM OXIDE 400 MG TABLET PO SCH (07:35)
[2017-03-26] MEDS: POLYETHYLENE GLYCOL 3350 17 GM PACKET. PO SCH (07:35)
[2017-03-26] MEDS: traZODone 50 MG TABLET. PO SCH ×3 (07:35→21:11)
[2017-03-26] MEDS: DOCUSATE SODIUM 100 MG CAPSULE PO SCH ×2 (07:35→21:12)
[2017-03-26] MEDS: DIVALPROEX 125 MG CAP.SPRINK PO SCH ×2 (07:35→21:11)
[2017-03-26] MEDS: ENOXAPARIN 40 MG/0.4 ML DISP.SYRIN. SQ SCH (07:36)
[2017-03-26 16:40] VITALS: BP 161/71
--- NOTE | 2017-03-26 18:07 | PDOC ---
Exam Jeanmarie Demential Exam: Jeanmarie Note: Please also refer to the separate dictated note~for this date of service dictated separately.~Patient seen individually. Discussed the patient with Nursing staff reviewed the chart.~Reviewed interim history and current functioning. Reviewed vital signs,~Labs/ Radiology~and current medications noted below. Continue current treatment with the changes noted in the dictated addendum note Assessment: Vital Signs: Vital Signs Date Time Temp Pulse Resp B/P (MAP) Pulse Ox O2 Delivery O2 Flow Rate FiO2 03/26/17 16:40 98.1 73 20 161/71 (101) 98 03/23/17 16:26 Room Air I&O Intake and Output 03/27/17 07:00 Intake Total 720 ml Balance 720 ml Intake Oral 720 ml Current Medications: Meds: Current Medications Lorazepam (Ativan) 0.5 mg 1X ONCE PO Last administered on 02/01/17 19:14; Start 02/01/17 at 19:15; Stop 02/01/17 at 19:16; Status DC Ceftriaxone Sodium (Rocephin Im) 1 gm 1X ONCE IM Last administered on 20:45; Start 02/01/17 at 20:30; Stop 02/01/17 at 20:31; Status DC Acetaminophen (Tylenol) 650 mg PRN Q6HRS PRN PO MILD PAIN / TEMP Last administered on 03/08/17 09:20; Start 02/01/17 at 23:15 Multi-Ingredient Ointment (Analgesic [place]) 1 [place] PRN QID PRN TP MUSCLE PAIN; Start 02/01/17 at 23:15 Al Hydroxide/Mg Hydroxide (Mylanta Plus Xs) 15 ml PRN AFTMEALHC PRN PO DYSPEPSIA; Start 02/01/17 at 23:15 Magnesium Hydroxide (Milk Of Magnesia) 2,400 mg PRN QHS PRN PO CONSTIPATION Last administered on 02/13/17 02:05; Start 02/01/17 at 23:15 Olanzapine (ZyPREXA) 5 mg HS PO Last administered on 02/13/17 19:31; Start at 21:00; Stop 02/14/17 at 18:51; Status DC Quetiapine Fumarate (SEROquel) 25 mg BID PO Last administered on 02/08/17 08: 42; Start 02/02/17 at 09:00; Stop 02/08/17 at 19:16; Status DC Sertraline HCl (Zoloft) 100 mg DAILY PO Last administered on 02/06/17 08:01; Start 02/02/17 at 09:00; Stop 02/06/17 at 18:56; Status DC Olanzapine (ZyPREXA) 5 mg 1X ONCE PO Last administered on 02/02/17 00:27; Start 02/02/17 at 00:30; Stop 02/02/17 at 00:31; Status DC Alprazolam (Xanax) 0.5 mg BID PO Last administered on 02/13/17 11:42; Start at 09:00; Stop 02/13/17 at 18:35; Status DC Lorazepam (Ativan) 0.5 mg PRN Q4HRS PRN PO ANXIETY / AGITATION Last administered on 02/02/17 14:57; Start 02/02/17 at 00:15; Stop 02/02/17 at 15:59 ; Status DC Levothyroxine Sodium (Synthroid) 112 mcg DAILY06 PO Last administered on 06:07; Start 02/02/17 at 10:00 Naproxen (Naprosyn) 500 mg BID PO Last administered on 03/26/17 07:35; Start 02/02/17 at 09:00 Atorvastatin Calcium (Lipitor) 40 mg QHS PO Last administered on 03/25/17 20: 49; Start 02/02/17 at 21:00 Mirtazapine (Remeron) 7.5 mg QHS PO Last administered on 02/20/17 23:08; Start 02/02/17 at 21:00; Stop 02/21/17 at 19:38; Status DC Olanzapine (ZyPREXA ZYDIS) 2.5 mg PRN Q2HR PRN PO PSYCHOSIS Last administered on 03/25/17 18:02; Start 02/02/17 at 15:45 Alprazolam (Xanax) 0.25 mg PRN Q2HR PRN PO ANXIETY / AGITATION Last administered on 02/13/17 16:33; Start 02/02/17 at 15:45; Stop 02/13/17 at 18:35 ; Status DC Docusate Sodium (Colace) 100 mg BID PO Last administered on 03/26/17 07:35; Start 02/02/17 at 21:00 Polyethylene Glycol (miraLAX) 17 gm DAILY PO Last administered on 03/26/17 07: 35; Start 02/03/17 at 09:00 Vitamin D (Vitamin D3) 50,000 unit WEEKLY PO Last administered on 03/24/17 09: 05; Start 02/10/17 at 09:00 Divalproex Sodium (Depakote Sprinkles) 125 mg TID@0900,1300,1700 PO Last administered on 02/06/17 16:46; Start 02/04/17 at 09:00; Stop 02/06/17 at 18:56 ; Status DC Divalproex Sodium (Depakote Sprinkles) 250 mg TID@0900,1300,1700 PO Last administered on 02/09/17 09:13; Start 02/07/17 at 09:00; Stop 02/09/17 at 13:03 ; Status DC Fluvoxamine Maleate (Luvox) 50 mg HS PO Last administered on 02/13/17 19:32; Start 02/06/17 at 21:00; Stop 02/14/17 at 18:51; Status DC Quetiapine Fumarate (SEROquel) 25 mg TID PO Last administered on 02/09/17 09: 16; Start 02/09/17 at 09:00; Stop 02/09/17 at 13:30; Status DC Divalproex Sodium (Depakote Sprinkles) 375 mg TID@0900,1300,1700 PO Last administered on 02/16/17 08:01; Start 02/09/17 at 13:00; Stop 02/16/17 at 19:13 ; Status DC Quetiapine Fumarate (SEROquel) 37.5 mg TID PO Last administered on 02/12/17 12 :55; Start 02/09/17 at 14:00; Stop 02/12/17 at 17:56; Status DC Olanzapine (ZyPREXA) 5 mg 1X ONCE PO Last administered on 02/12/17 11:57; Start 02/12/17 at 12:00; Stop 02/12/17 at 12:01; Status DC Quetiapine Fumarate (SEROquel) 50 mg TID PO Last administered on 02/19/17 13: 43; Start 02/12/17 at 21:00; Stop 02/19/17 at 18:29; Status DC Lorazepam (Ativan) 0.5 mg PRN Q2HR PRN PO ANXIETY / AGITATION Last administered on 03/24/17 23:40; Start 02/13/17 at 18:45 Lorazepam (Ativan) 0.5 mg BID PO Last administered on 02/16/17 08:04; Start at 21:00; Stop 02/17/17 at 17:37; Status DC Fluvoxamine Maleate (Luvox) 75 mg HS PO Last administered on 02/15/17 19:11; Start 02/14/17 at 21:00; Stop 02/16/17 at 22:01; Status DC Trazodone HCl (Desyrel) 12.5 mg TID PO Last administered on 02/14/17 19:39; Start 02/14/17 at 19:00; Stop 02/14/17 at 21:12; Status DC Trazodone HCl (Desyrel) 12.5 mg TIDWMEALS PO Last administered on 02/19/17 07: 57; Start 02/15/17 at 08:00; Stop 02/19/17 at 09:00; Status DC Fluvoxamine Maleate (Luvox) 100 mg HS PO Last administered on 02/27/17 19:14; Start 02/16/17 at 21:00; Stop 02/28/17 at 18:33; Status DC Lorazepam (Ativan) 0.25 mg BID PO Last administered on 02/18/17 20:06; Start 02/17/17 at 21:00; Stop 02/18/17 at 22:00; Status DC Trazodone HCl (Desyrel) 12.5 mg QID PO Last administered on 02/28/17 16:43; Start 02/19/17 at 09:00; Stop 02/28/17 at 18:19; Status DC Risperidone (RisperDAL) 0.125 mg TID@0900,1300,1700 PO Last administered on 17:31; Start 02/20/17 at 09:00; Stop 02/20/17 at 22:50; Status DC Mirtazapine (Remeron) 15 mg QHS PO Last administered on 03/13/17 20:15; Start 02/21/17 at 21:00; Stop 03/14/17 at 15:48; Status DC Trazodone HCl (Desyrel) 50 mg PRN QHS PRN PO INSOMNIA, MAY REPEAT X1 Last administered on 02/23/17 00:34; Start 02/20/17 at 22:45; Stop 02/23/17 at 10:59 ; Status DC Risperidone (RisperDAL) 0.25 mg TID@0900,1300,1700 PO Last administered on 02/24 17:20; Start 02/21/17 at 09:00; Stop 02/24/17 at 19:06; Status DC Trazodone HCl (Desyrel) 100 mg PRN QHS PRN PO INSOMNIA, SEPTEMBER REPEAT X1 Last administered on 03/25/17 20:53; Start 02/23/17 at 11:15 Risperidone (RisperDAL) 0.375 mg TID@0900,1300,1700 PO Last administered on 16:26; Start 02/25/17 at 09:00; Stop 02/26/17 at 18:57; Status DC Carbamazepine (TEGretol) 200 mg QHS PO Last administered on 02/27/17 19:14; Start 02/24/17 at 21:00; Stop 02/28/17 at 18:19; Status DC Enoxaparin Sodium (Lovenox) 40 mg Q24H SQ Last administered on 03/11/17 11:55 ; Start 02/25/17 at 14:00; Stop 03/12/17 at 10:01; Status DC Cefpodoxime Proxetil (Vantin) 100 mg BID PO Last administered on 03/06/17 08: 37; Start 02/25/17 at 21:00; Stop 03/06/17 at 12:55; Status DC Risperidone (RisperDAL) 0.5 mg TID@0900,1300,1700 PO Last administered on 03/14 12:40; Start 02/27/17 at 09:00; Stop 03/14/17 at 15:48; Status DC Carbamazepine (TEGretol) 150 mg BID PO Last administered on 03/03/17 08:14; Start 02/28/17 at 21:00; Stop 03/03/17 at 18:20; Status DC Trazodone HCl (Desyrel) 25 mg TID@0900,1300,1700 PO Last administered on 17:34; Start 03/01/17 at 09:00; Stop 03/09/17 at 18:31; Status DC Fluvoxamine Maleate (Luvox) 150 mg HS PO Last administered on 03/20/17 19:25 ; Start 02/28/17 at 21:00; Stop 03/21/17 at 18:47; Status DC [place] Carbonate 300 mg QHS PO Last administered on 03/12/17 19:20; Start 03/02/17 at 21:00; Stop 03/13/17 at 14:53; Status DC Influenza Virus Vaccine Quadrival (Fluarix Quad [id number] Syringe) 0.5 ml ONCE ONCE VAX IM Last administered on 03/04/17 09:57; Start 03/04/17 at 09:00; Stop 03/04/17 at 09:01; Status DC [place] Carbonate 150 mg DAILY PO Last administered on 03/13/17 09:52; Start 03/06/17 at 09:00; Stop 03/13/17 at 14:53; Status DC [place] Carbonate 75 mg DAILY PO Last administered on 03/13/17 09:51; Start 03/09/17 at 09:00; Stop 03/13/17 at 14:53; Status DC Trazodone HCl (Desyrel) 25 mg BID@1300,1700 PO Last administered on 03/10/17 17:19; Start 03/10/17 at 13:00; Stop 03/10/17 at 19:29; Status DC Trazodone HCl (Desyrel) 50 mg DAILY PO ; Start 03/10/17 at 09:00; Stop at 19:29; Status DC Magnesium Oxide (Magnesium Oxide) 400 mg DAILY PO Last administered on 07:35; Start 03/11/17 at 09:00 Trazodone HCl (Desyrel) 50 mg BID94 PO Last administered on 03/20/17 16:28; Start 03/11/17 at 09:00; Stop 03/20/17 at 18:59; Status DC Trazodone HCl (Desyrel) 25 mg DAILYWLUN PO Last administered on 03/20/17 13: 37; Start 03/11/17 at 12:00; Stop 03/20/17 at 18:59; Status DC Hydroxyzine Pamoate (Vistaril) 25 mg PRN Q6HRS PRN PO AGITATION Last administered on 03/17/17 09:20; Start 03/12/17 at 10:00 Enoxaparin Sodium (Lovenox) 40 mg Q24H SQ Last administered on 03/26/17 07:36 ; Start 03/13/17 at 09:00 [place] Carbonate 150 mg BID PO Last administered on 03/24/17 09:05; Start at 21:00; Stop 03/24/17 at 18:31; Status DC Mirtazapine (Remeron) 22.5 mg QHS PO Last administered on 03/25/17 20:49; Start 03/14/17 at 21:00 Risperidone (RisperDAL) 0.5 mg BID PO Last administered on 03/26/17 07:35; Start 03/14/17 at 21:00 Amoxicillin (Amoxil) 500 mg TID PO Last administered on 03/26/17 13:30; Start 03/17/17 at 19:30 Lactobacillus Acidophilus (Bacid, Kelly-Bid) 1 tab BID PO Last administered on 03/26/17 07:35; Start 03/17/17 at 19:30 Trazodone HCl (Desyrel) 50 mg TID@0900,1400,1600 PO Last administered on 16:04; Start 03/21/17 at 09:00; Stop 03/21/17 at 18:47; Status DC Fluvoxamine Maleate (Luvox) 175 mg HS PO Last administered on 03/23/17 19:27; Start 03/21/17 at 21:00; Stop 03/24/17 at 18:31; Status DC Trazodone HCl (Desyrel) 75 mg TID@0900,1600 PO Last administered on 03/23/17 17:10; Start 03/22/17 at 09:00; Stop 03/23/17 at 18:52; Status DC Trazodone HCl (Desyrel) 50 mg 1400 PO Last administered on 03/23/17 14:08; Start 03/22/17 at 14:00; Stop 03/23/17 at 18:52; Status DC Trazodone HCl (Desyrel) 100 mg TID@0900,1600 PO Last administered on 03/26/17 07:35; Start 03/24/17 at 09:00 Trazodone HCl (Desyrel) 75 mg DAILY@1400 PO Last administered on 03/26/17 13: 30; Start 03/24/17 at 14:00 Fluvoxamine Maleate (Luvox) 200 mg HS PO Last administered on 03/25/17 20:49; Start 03/24/17 at 21:00 Divalproex Sodium (Depakote Sprinkles) 250 mg BID PO Last administered on 07:35; Start 03/25/17 at 21:00 Active Scripts Active Reported Atorvastatin Calcium 40 Mg Tablet 40 Mg PO QHS Naproxen 500 Mg Tablet 500 Mg PO BID Lorazepam 0.5 Mg Tablet 0.5 Mg PO PRN Q4HRS PRN Seroquel (Quetiapine Fumarate) 25 Mg Tablet 25 Mg PO BID Zoloft (Sertraline Hcl) 100 Mg Tablet 100 Mg PO DAILY Levothyroxine Sodium 112 Mcg Tablet 112 Mcg PO DAILYAC Olanzapine 5 Mg Tablet 5 Mg PO HS Alprazolam 0.5 Mg Tablet 0.5 Mg PO BID Diagnosis: Problems: (1) Impulse control disorder (2) Dementia, vascular, with delusions (3) Dementia, vascular, with depression (4) Dementia in Alzheimer's disease with depression (5) Dementia in Alzheimer's disease with delusions (6) Bipolar 1 disorder, mixed, moderate (7) Anxiety disorder ELEANOR BILLS MD Mar 26, 2017 18:07
[2017-03-26] MEDS: ATORVASTATIN CALCIUM 20 MG TABLET PO SCH (21:12)
[2017-03-26] MEDS: MIRTAZAPINE 15 MG TABLET PO SCH (21:12)
[2017-03-26] MEDS: traZODone 100 MG TABLET. PO PRN ×2 (22:20→22:21)
[2017-03-26] MEDS: hydrOXYzine PAMOATE 25 MG CAPSULE PO PRN ×2 (22:20→22:21)
[2017-03-27] MEDS: LEVOTHYROXINE 112 MCG TABLET PO SCH (06:00)
[2017-03-27 06:27] VITALS: BP 103/64
[2017-03-27] MEDS: ENOXAPARIN 40 MG/0.4 ML DISP.SYRIN. SQ SCH (08:18)
[2017-03-27] MEDS: POLYETHYLENE GLYCOL 3350 17 GM PACKET. PO SCH (08:18)
[2017-03-27] MEDS: DOCUSATE SODIUM 100 MG CAPSULE PO SCH ×2 (08:18→19:44)
[2017-03-27] MEDS: AMOXICILLIN 250 MG CAPSULE PO SCH ×3 (08:18→19:45)
[2017-03-27] MEDS: LACTOBACILLUS ACIDOPH & BULGAR 1 TABLET. PO SCH ×2 (08:18→19:44)
[2017-03-27] MEDS: NAPROXEN 500 MG TABLET PO SCH ×2 (08:18→19:43)
[2017-03-27] MEDS: risperiDONE 0.5 MG TABLET. PO SCH ×2 (08:18→19:45)
[2017-03-27] MEDS: traZODone 50 MG TABLET. PO SCH ×3 (08:19→17:15)
[2017-03-27] MEDS: MAGNESIUM OXIDE 400 MG TABLET PO SCH (08:19)
[2017-03-27] MEDS: DIVALPROEX 125 MG CAP.SPRINK PO SCH ×2 (08:19→19:45)
[2017-03-27 16:06] VITALS: BP 124/65
[2017-03-27] MEDS: ATORVASTATIN CALCIUM 20 MG TABLET PO SCH (19:44)
[2017-03-27] MEDS: MIRTAZAPINE 15 MG TABLET PO SCH (19:44)
--- NOTE | 2017-03-27 20:06 | PDOC ---
Exam Jeanmarie Demential Exam: Jeanmarie Note: Please also refer to the separate dictated note~for this date of service dictated separately.~Patient seen individually. Discussed the patient with Nursing staff reviewed the chart.~Reviewed interim history and current functioning. Reviewed vital signs,~Labs/ Radiology~and current medications noted below. Continue current treatment with the changes noted in the dictated addendum note Assessment: Vital Signs: Vital Signs Date Time Temp Pulse Resp B/P (MAP) Pulse Ox O2 Delivery O2 Flow Rate FiO2 03/27/17 16:06 98.6 100 20 124/65 (84) 96 03/23/17 16:26 Room Air I&O Intake and Output 03/28/17 07:00 Intake Total 1200 ml Balance 1200 ml Intake Oral 1200 ml Current Medications: Meds: Current Medications Lorazepam (Ativan) 0.5 mg 1X ONCE PO Last administered on 02/01/17 19:14; Start 02/01/17 at 19:15; Stop 02/01/17 at 19:16; Status DC Ceftriaxone Sodium (Rocephin Im) 1 gm 1X ONCE IM Last administered on 20:45; Start 02/01/17 at 20:30; Stop 02/01/17 at 20:31; Status DC Acetaminophen (Tylenol) 650 mg PRN Q6HRS PRN PO MILD PAIN / TEMP Last administered on 03/08/17 09:20; Start 02/01/17 at 23:15 Multi-Ingredient Ointment (Analgesic [place]) 1 rosita PRN QID PRN TP MUSCLE PAIN; Start 02/01/17 at 23:15 Al Hydroxide/Mg Hydroxide (Mylanta Plus Xs) 15 ml PRN AFTMEALHC PRN PO DYSPEPSIA; Start 02/01/17 at 23:15 Magnesium Hydroxide (Milk Of Magnesia) 2,400 mg PRN QHS PRN PO CONSTIPATION Last administered on 02/13/17 02:05; Start 02/01/17 at 23:15 Olanzapine (ZyPREXA) 5 mg HS PO Last administered on 02/13/17 19:31; Start at 21:00; Stop 02/14/17 at 18:51; Status DC Quetiapine Fumarate (SEROquel) 25 mg BID PO Last administered on 02/08/17 08: 42; Start 02/02/17 at 09:00; Stop 02/08/17 at 19:16; Status DC Sertraline HCl (Zoloft) 100 mg DAILY PO Last administered on 02/06/17 08:01; Start 02/02/17 at 09:00; Stop 02/06/17 at 18:56; Status DC Olanzapine (ZyPREXA) 5 mg 1X ONCE PO Last administered on 02/02/17 00:27; Start 02/02/17 at 00:30; Stop 02/02/17 at 00:31; Status DC Alprazolam (Xanax) 0.5 mg BID PO Last administered on 02/13/17 11:42; Start at 09:00; Stop 02/13/17 at 18:35; Status DC Lorazepam (Ativan) 0.5 mg PRN Q4HRS PRN PO ANXIETY / AGITATION Last administered on 02/02/17 14:57; Start 02/02/17 at 00:15; Stop 02/02/17 at 15:59 ; Status DC Levothyroxine Sodium (Synthroid) 112 mcg DAILY06 PO Last administered on 06:00; Start 02/02/17 at 10:00 Naproxen (Naprosyn) 500 mg BID PO Last administered on 03/27/17 19:43; Start 02/02/17 at 09:00 Atorvastatin Calcium (Lipitor) 40 mg QHS PO Last administered on 03/27/17 19: 44; Start 02/02/17 at 21:00 Mirtazapine (Remeron) 7.5 mg QHS PO Last administered on 02/20/17 23:08; Start 02/02/17 at 21:00; Stop 02/21/17 at 19:38; Status DC Olanzapine (ZyPREXA ZYDIS) 2.5 mg PRN Q2HR PRN PO PSYCHOSIS Last administered on 03/25/17 18:02; Start 02/02/17 at 15:45 Alprazolam (Xanax) 0.25 mg PRN Q2HR PRN PO ANXIETY / AGITATION Last administered on 02/13/17 16:33; Start 02/02/17 at 15:45; Stop 02/13/17 at 18:35 ; Status DC Docusate Sodium (Colace) 100 mg BID PO Last administered on 03/27/17 19:44; Start 02/02/17 at 21:00 Polyethylene Glycol (miraLAX) 17 gm DAILY PO Last administered on 03/27/17 08: 18; Start 02/03/17 at 09:00 Vitamin D (Vitamin D3) 50,000 unit WEEKLY PO Last administered on 03/24/17 09: 05; Start 02/10/17 at 09:00 Divalproex Sodium (Depakote Sprinkles) 125 mg TID@0900,1300,1700 PO Last administered on 02/06/17 16:46; Start 02/04/17 at 09:00; Stop 02/06/17 at 18:56 ; Status DC Divalproex Sodium (Depakote Sprinkles) 250 mg TID@0900,1300,1700 PO Last administered on 02/09/17 09:13; Start 02/07/17 at 09:00; Stop 02/09/17 at 13:03 ; Status DC Fluvoxamine Maleate (Luvox) 50 mg HS PO Last administered on 02/13/17 19:32; Start 02/06/17 at 21:00; Stop 02/14/17 at 18:51; Status DC Quetiapine Fumarate (SEROquel) 25 mg TID PO Last administered on 02/09/17 09: 16; Start 02/09/17 at 09:00; Stop 02/09/17 at 13:30; Status DC Divalproex Sodium (Depakote Sprinkles) 375 mg TID@0900,1300,1700 PO Last administered on 02/16/17 08:01; Start 02/09/17 at 13:00; Stop 02/16/17 at 19:13 ; Status DC Quetiapine Fumarate (SEROquel) 37.5 mg TID PO Last administered on 02/12/17 12 :55; Start 02/09/17 at 14:00; Stop 02/12/17 at 17:56; Status DC Olanzapine (ZyPREXA) 5 mg 1X ONCE PO Last administered on 02/12/17 11:57; Start 02/12/17 at 12:00; Stop 02/12/17 at 12:01; Status DC Quetiapine Fumarate (SEROquel) 50 mg TID PO Last administered on 02/19/17 13: 43; Start 02/12/17 at 21:00; Stop 02/19/17 at 18:29; Status DC Lorazepam (Ativan) 0.5 mg PRN Q2HR PRN PO ANXIETY / AGITATION Last administered on 03/24/17 23:40; Start 02/13/17 at 18:45 Lorazepam (Ativan) 0.5 mg BID PO Last administered on 02/16/17 08:04; Start at 21:00; Stop 02/17/17 at 17:37; Status DC Fluvoxamine Maleate (Luvox) 75 mg HS PO Last administered on 02/15/17 19:11; Start 02/14/17 at 21:00; Stop 02/16/17 at 22:01; Status DC Trazodone HCl (Desyrel) 12.5 mg TID PO Last administered on 02/14/17 19:39; Start 02/14/17 at 19:00; Stop 02/14/17 at 21:12; Status DC Trazodone HCl (Desyrel) 12.5 mg TIDWMEALS PO Last administered on 02/19/17 07: 57; Start 02/15/17 at 08:00; Stop 02/19/17 at 09:00; Status DC Fluvoxamine Maleate (Luvox) 100 mg HS PO Last administered on 02/27/17 19:14; Start 02/16/17 at 21:00; Stop 02/28/17 at 18:33; Status DC Lorazepam (Ativan) 0.25 mg BID PO Last administered on 02/18/17 20:06; Start 02/17/17 at 21:00; Stop 02/18/17 at 22:00; Status DC Trazodone HCl (Desyrel) 12.5 mg QID PO Last administered on 02/28/17 16:43; Start 02/19/17 at 09:00; Stop 02/28/17 at 18:19; Status DC Risperidone (RisperDAL) 0.125 mg TID@0900,1300,1700 PO Last administered on 17:31; Start 02/20/17 at 09:00; Stop 02/20/17 at 22:50; Status DC Mirtazapine (Remeron) 15 mg QHS PO Last administered on 03/13/17 20:15; Start 02/21/17 at 21:00; Stop 03/14/17 at 15:48; Status DC Trazodone HCl (Desyrel) 50 mg PRN QHS PRN PO INSOMNIA, MAY REPEAT X1 Last administered on 02/23/17 00:34; Start 02/20/17 at 22:45; Stop 02/23/17 at 10:59 ; Status DC Risperidone (RisperDAL) 0.25 mg TID@0900,1300,1700 PO Last administered on 02/24 17:20; Start 02/21/17 at 09:00; Stop 02/24/17 at 19:06; Status DC Trazodone HCl (Desyrel) 100 mg PRN QHS PRN PO INSOMNIA, SEPTEMBER REPEAT X1 Last administered on 03/26/17 22:21; Start 02/23/17 at 11:15 Risperidone (RisperDAL) 0.375 mg TID@0900,1300,1700 PO Last administered on 16:26; Start 02/25/17 at 09:00; Stop 02/26/17 at 18:57; Status DC Carbamazepine (TEGretol) 200 mg QHS PO Last administered on 02/27/17 19:14; Start 02/24/17 at 21:00; Stop 02/28/17 at 18:19; Status DC Enoxaparin Sodium (Lovenox) 40 mg Q24H SQ Last administered on 03/11/17 11:55 ; Start 02/25/17 at 14:00; Stop 03/12/17 at 10:01; Status DC Cefpodoxime Proxetil (Vantin) 100 mg BID PO Last administered on 03/06/17 08: 37; Start 02/25/17 at 21:00; Stop 03/06/17 at 12:55; Status DC Risperidone (RisperDAL) 0.5 mg TID@0900,1300,1700 PO Last administered on 03/14 12:40; Start 02/27/17 at 09:00; Stop 03/14/17 at 15:48; Status DC Carbamazepine (TEGretol) 150 mg BID PO Last administered on 03/03/17 08:14; Start 02/28/17 at 21:00; Stop 03/03/17 at 18:20; Status DC Trazodone HCl (Desyrel) 25 mg TID@0900,1300,1700 PO Last administered on 17:34; Start 03/01/17 at 09:00; Stop 03/09/17 at 18:31; Status DC Fluvoxamine Maleate (Luvox) 150 mg HS PO Last administered on 03/20/17 19:25 ; Start 02/28/17 at 21:00; Stop 03/21/17 at 18:47; Status DC [place] Carbonate 300 mg QHS PO Last administered on 03/12/17 19:20; Start 03/02/17 at 21:00; Stop 03/13/17 at 14:53; Status DC Influenza Virus Vaccine Quadrival (Fluarix Quad 2356-2145 Syringe) 0.5 ml ONCE ONCE VAX IM Last administered on 03/04/17 09:57; Start 03/04/17 at 09:00; Stop 03/04/17 at 09:01; Status DC [place] Carbonate 150 mg DAILY PO Last administered on 03/13/17 09:52; Start 03/06/17 at 09:00; Stop 03/13/17 at 14:53; Status DC [place] Carbonate 75 mg DAILY PO Last administered on 03/13/17 09:51; Start 03/09/17 at 09:00; Stop 03/13/17 at 14:53; Status DC Trazodone HCl (Desyrel) 25 mg BID@1300,1700 PO Last administered on 03/10/17 17:19; Start 03/10/17 at 13:00; Stop 03/10/17 at 19:29; Status DC Trazodone HCl (Desyrel) 50 mg DAILY PO ; Start 03/10/17 at 09:00; Stop at 19:29; Status DC Magnesium Oxide (Magnesium Oxide) 400 mg DAILY PO Last administered on 08:19; Start 03/11/17 at 09:00 Trazodone HCl (Desyrel) 50 mg BID94 PO Last administered on 03/20/17 16:28; Start 03/11/17 at 09:00; Stop 03/20/17 at 18:59; Status DC Trazodone HCl (Desyrel) 25 mg DAILYWLUN PO Last administered on 03/20/17 13: 37; Start 03/11/17 at 12:00; Stop 03/20/17 at 18:59; Status DC Hydroxyzine Pamoate (Vistaril) 25 mg PRN Q6HRS PRN PO AGITATION Last administered on 03/26/17 22:21; Start 03/12/17 at 10:00 Enoxaparin Sodium (Lovenox) 40 mg Q24H SQ Last administered on 03/27/17 08:18 ; Start 03/13/17 at 09:00 [place] Carbonate 150 mg BID PO Last administered on 03/24/17 09:05; Start at 21:00; Stop 03/24/17 at 18:31; Status DC Mirtazapine (Remeron) 22.5 mg QHS PO Last administered on 03/27/17 19:44; Start 03/14/17 at 21:00 Risperidone (RisperDAL) 0.5 mg BID PO Last administered on 03/27/17 19:45; Start 03/14/17 at 21:00 Amoxicillin (Amoxil) 500 mg TID PO Last administered on 03/27/17 19:45; Start 03/17/17 at 19:30 Lactobacillus Acidophilus (Bacid, Kelly-Bid) 1 tab BID PO Last administered on 03/27/17 19:44; Start 03/17/17 at 19:30 Trazodone HCl (Desyrel) 50 mg TID@0900,1400,1600 PO Last administered on 16:04; Start 03/21/17 at 09:00; Stop 03/21/17 at 18:47; Status DC Fluvoxamine Maleate (Luvox) 175 mg HS PO Last administered on 03/23/17 19:27; Start 03/21/17 at 21:00; Stop 03/24/17 at 18:31; Status DC Trazodone HCl (Desyrel) 75 mg TID@0900,1600 PO Last administered on 03/23/17 17:10; Start 03/22/17 at 09:00; Stop 03/23/17 at 18:52; Status DC Trazodone HCl (Desyrel) 50 mg 1400 PO Last administered on 03/23/17 14:08; Start 03/22/17 at 14:00; Stop 03/23/17 at 18:52; Status DC Trazodone HCl (Desyrel) 100 mg TID@0900,1600 PO Last administered on 03/27/17 17:15; Start 03/24/17 at 09:00 Trazodone HCl (Desyrel) 75 mg DAILY@1400 PO Last administered on 03/27/17 13: 42; Start 03/24/17 at 14:00 Fluvoxamine Maleate (Luvox) 200 mg HS PO Last administered on 03/27/17 19:45; Start 03/24/17 at 21:00 Divalproex Sodium (Depakote Sprinkles) 250 mg BID PO Last administered on 19:45; Start 03/25/17 at 21:00 Active Scripts Active Reported Atorvastatin Calcium 40 Mg Tablet 40 Mg PO QHS Naproxen 500 Mg Tablet 500 Mg PO BID Lorazepam 0.5 Mg Tablet 0.5 Mg PO PRN Q4HRS PRN Seroquel (Quetiapine Fumarate) 25 Mg Tablet 25 Mg PO BID Zoloft (Sertraline Hcl) 100 Mg Tablet 100 Mg PO DAILY Levothyroxine Sodium 112 Mcg Tablet 112 Mcg PO DAILYAC Olanzapine 5 Mg Tablet 5 Mg PO HS Alprazolam 0.5 Mg Tablet 0.5 Mg PO BID Diagnosis: Problems: (1) Anxiety disorder (2) Bipolar 1 disorder, mixed, moderate (3) Dementia in Alzheimer's disease with delusions (4) Dementia in Alzheimer's disease with depression (5) Dementia, vascular, with depression (6) Dementia, vascular, with delusions (7) Impulse control disorder ELEANOR BILLS MD Mar 27, 2017 20:06
--- NOTE | 2017-03-28 00:30 | PN ---
DATE: 03/25/2017 This late entry for 03/25/2017 covers elements not covered in my initial note of 03/25/2017. SUBJECTIVE: I met with the patient in the evening of 03/25/2017. The patient continues to yell, is repetitive, loud, disruptive with marked mood lability. REVIEW OF SYSTEMS: Ambulation impaired, in Broda chair. No CV, , pulmonary, eye, ENT system symptoms on review. Reliability poor. MENTAL STATUS EXAM: Oriented to herself. Insight, judgment, recent and remote memory, attention, concentration, fund of knowledge poor, consistent with her diagnosis mentioned in my initial note. PLAN: Given the patient's history of bipolar disorder, ongoing marked mood lability. failure on lithium, we will go ahead and restart Depakote 250 mg twice a day. Check CBC, CMP, valproic acid level in 3 days. Maintain the rest of the psychotropics. Reviewed drug interactions. Risk/benefit ratio favors no further change. ELEANOR BILLS MD DR: JAIME/meli JOB#: [id number] / [id number]
[2017-03-28] MEDS: LEVOTHYROXINE 112 MCG TABLET PO SCH (05:39)
[2017-03-28 06:53] VITALS: BP 115/60
[2017-03-28] MEDS: MAGNESIUM OXIDE 400 MG TABLET PO SCH (08:41)
[2017-03-28] MEDS: NAPROXEN 500 MG TABLET PO SCH ×2 (08:41→19:48)
[2017-03-28] MEDS: DOCUSATE SODIUM 100 MG CAPSULE PO SCH ×2 (08:41→19:49)
[2017-03-28] MEDS: AMOXICILLIN 250 MG CAPSULE PO SCH ×2 (08:41→14:16)
[2017-03-28] MEDS: DIVALPROEX 125 MG CAP.SPRINK PO SCH ×2 (08:41→19:49)
[2017-03-28] MEDS: risperiDONE 0.5 MG TABLET. PO SCH ×2 (08:41→19:49)
[2017-03-28] MEDS: LACTOBACILLUS ACIDOPH & BULGAR 1 TABLET. PO SCH ×2 (08:41→19:48)
[2017-03-28] MEDS: ENOXAPARIN 40 MG/0.4 ML DISP.SYRIN. SQ SCH (08:42)
[2017-03-28] MEDS: POLYETHYLENE GLYCOL 3350 17 GM PACKET. PO SCH (08:42)
[2017-03-28] MEDS: traZODone 50 MG TABLET. PO SCH ×3 (08:42→16:39)
--- NOTE | 2017-03-28 09:51 | PN ---
DATE: 03/26/2017 PSYCHIATRIC PROGRESS NOTE This late entry of date of service 03/26/2017 covers elements not covered in my initial note of 03/26/2017. I met with the patient on the evening of 03/26/2017. Overall, per nursing report, the patient has been screaming less than before. She is still somewhat labile, yelling at times, but again slight improvement, perhaps since we added the Depakote. REVIEW OF SYSTEMS: Ambulation impaired, in a Broda chair. No CV, , pulmonary, eye, ENT system symptoms on review. Reliability is poor. MENTAL STATUS EXAM: Oriented to herself. Insight, judgment, recent and remote memory, attention, concentration, fund of knowledge poor, consistent with her diagnosis mentioned in my initial note. PLAN: Continue current psychotropics. Reviewed drug interactions. Risk/benefit ratio favors no further change. MAN Aden BILLS MD DR: JAIME/meli JOB#: [id number] / [id number]
[2017-03-28] MEDS: LORazepam 0.5 MG TABLET PO PRN (14:48)
[2017-03-28 16:43] VITALS: BP 115/73
[2017-03-28] MEDS: ATORVASTATIN CALCIUM 20 MG TABLET PO SCH (19:48)
[2017-03-28] MEDS: MIRTAZAPINE 15 MG TABLET PO SCH (19:49)
--- NOTE | 2017-03-28 21:49 | PDOC ---
Exam Jeanmarie Demential Exam: Jeanmarie Note: Please also refer to the separate dictated note~for this date of service dictated separately.~Patient seen individually. Discussed the patient with Nursing staff reviewed the chart.~Reviewed interim history and current functioning. Reviewed vital signs,~Labs/ Radiology~and current medications noted below. Continue current treatment with the changes noted in the dictated addendum note Assessment: Vital Signs: Vital Signs Date Time Temp Pulse Resp B/P (MAP) Pulse Ox O2 Delivery O2 Flow Rate FiO2 03/28/17 16:43 97.6 72 20 115/73 (87) 96 03/23/17 16:26 Room Air I&O Intake and Output 03/29/17 07:00 Intake Total 840 ml Balance 840 ml Intake Oral 840 ml # Bowel Movements 1 Current Medications: Meds: Current Medications Lorazepam (Ativan) 0.5 mg 1X ONCE PO Last administered on 02/01/17 19:14; Start 02/01/17 at 19:15; Stop 02/01/17 at 19:16; Status DC Ceftriaxone Sodium (Rocephin Im) 1 gm 1X ONCE IM Last administered on 20:45; Start 02/01/17 at 20:30; Stop 02/01/17 at 20:31; Status DC Acetaminophen (Tylenol) 650 mg PRN Q6HRS PRN PO MILD PAIN / TEMP Last administered on 03/08/17 09:20; Start 02/01/17 at 23:15 Multi-Ingredient Ointment (Analgesic Battiest) 1 rosita PRN QID PRN TP MUSCLE PAIN; Start 02/01/17 at 23:15 Al Hydroxide/Mg Hydroxide (Mylanta Plus Xs) 15 ml PRN AFTMEALHC PRN PO DYSPEPSIA; Start 02/01/17 at 23:15 Magnesium Hydroxide (Milk Of Magnesia) 2,400 mg PRN QHS PRN PO CONSTIPATION Last administered on 02/13/17 02:05; Start 02/01/17 at 23:15 Olanzapine (ZyPREXA) 5 mg HS PO Last administered on 02/13/17 19:31; Start at 21:00; Stop 02/14/17 at 18:51; Status DC Quetiapine Fumarate (SEROquel) 25 mg BID PO Last administered on 02/08/17 08: 42; Start 02/02/17 at 09:00; Stop 02/08/17 at 19:16; Status DC Sertraline HCl (Zoloft) 100 mg DAILY PO Last administered on 02/06/17 08:01; Start 02/02/17 at 09:00; Stop 02/06/17 at 18:56; Status DC Olanzapine (ZyPREXA) 5 mg 1X ONCE PO Last administered on 02/02/17 00:27; Start 02/02/17 at 00:30; Stop 02/02/17 at 00:31; Status DC Alprazolam (Xanax) 0.5 mg BID PO Last administered on 02/13/17 11:42; Start at 09:00; Stop 02/13/17 at 18:35; Status DC Lorazepam (Ativan) 0.5 mg PRN Q4HRS PRN PO ANXIETY / AGITATION Last administered on 02/02/17 14:57; Start 02/02/17 at 00:15; Stop 02/02/17 at 15:59 ; Status DC Levothyroxine Sodium (Synthroid) 112 mcg DAILY06 PO Last administered on 05:39; Start 02/02/17 at 10:00 Naproxen (Naprosyn) 500 mg BID PO Last administered on 03/28/17 19:48; Start 02/02/17 at 09:00 Atorvastatin Calcium (Lipitor) 40 mg QHS PO Last administered on 03/28/17 19: 48; Start 02/02/17 at 21:00 Mirtazapine (Remeron) 7.5 mg QHS PO Last administered on 02/20/17 23:08; Start 02/02/17 at 21:00; Stop 02/21/17 at 19:38; Status DC Olanzapine (ZyPREXA ZYDIS) 2.5 mg PRN Q2HR PRN PO PSYCHOSIS Last administered on 03/28/17 14:48; Start 02/02/17 at 15:45 Alprazolam (Xanax) 0.25 mg PRN Q2HR PRN PO ANXIETY / AGITATION Last administered on 02/13/17 16:33; Start 02/02/17 at 15:45; Stop 02/13/17 at 18:35 ; Status DC Docusate Sodium (Colace) 100 mg BID PO Last administered on 03/28/17 19:49; Start 02/02/17 at 21:00 Polyethylene Glycol (miraLAX) 17 gm DAILY PO Last administered on 03/28/17 08: 42; Start 02/03/17 at 09:00 Vitamin D (Vitamin D3) 50,000 unit WEEKLY PO Last administered on 03/24/17 09: 05; Start 02/10/17 at 09:00 Divalproex Sodium (Depakote Sprinkles) 125 mg TID@0900,1300,1700 PO Last administered on 02/06/17 16:46; Start 02/04/17 at 09:00; Stop 02/06/17 at 18:56 ; Status DC Divalproex Sodium (Depakote Sprinkles) 250 mg TID@0900,1300,1700 PO Last administered on 02/09/17 09:13; Start 02/07/17 at 09:00; Stop 02/09/17 at 13:03 ; Status DC Fluvoxamine Maleate (Luvox) 50 mg HS PO Last administered on 02/13/17 19:32; Start 02/06/17 at 21:00; Stop 02/14/17 at 18:51; Status DC Quetiapine Fumarate (SEROquel) 25 mg TID PO Last administered on 02/09/17 09: 16; Start 02/09/17 at 09:00; Stop 02/09/17 at 13:30; Status DC Divalproex Sodium (Depakote Sprinkles) 375 mg TID@0900,1300,1700 PO Last administered on 02/16/17 08:01; Start 02/09/17 at 13:00; Stop 02/16/17 at 19:13 ; Status DC Quetiapine Fumarate (SEROquel) 37.5 mg TID PO Last administered on 02/12/17 12 :55; Start 02/09/17 at 14:00; Stop 02/12/17 at 17:56; Status DC Olanzapine (ZyPREXA) 5 mg 1X ONCE PO Last administered on 02/12/17 11:57; Start 02/12/17 at 12:00; Stop 02/12/17 at 12:01; Status DC Quetiapine Fumarate (SEROquel) 50 mg TID PO Last administered on 02/19/17 13: 43; Start 02/12/17 at 21:00; Stop 02/19/17 at 18:29; Status DC Lorazepam (Ativan) 0.5 mg PRN Q2HR PRN PO ANXIETY / AGITATION Last administered on 03/28/17 14:48; Start 02/13/17 at 18:45 Lorazepam (Ativan) 0.5 mg BID PO Last administered on 02/16/17 08:04; Start at 21:00; Stop 02/17/17 at 17:37; Status DC Fluvoxamine Maleate (Luvox) 75 mg HS PO Last administered on 02/15/17 19:11; Start 02/14/17 at 21:00; Stop 02/16/17 at 22:01; Status DC Trazodone HCl (Desyrel) 12.5 mg TID PO Last administered on 02/14/17 19:39; Start 02/14/17 at 19:00; Stop 02/14/17 at 21:12; Status DC Trazodone HCl (Desyrel) 12.5 mg TIDWMEALS PO Last administered on 02/19/17 07: 57; Start 02/15/17 at 08:00; Stop 02/19/17 at 09:00; Status DC Fluvoxamine Maleate (Luvox) 100 mg HS PO Last administered on 02/27/17 19:14; Start 02/16/17 at 21:00; Stop 02/28/17 at 18:33; Status DC Lorazepam (Ativan) 0.25 mg BID PO Last administered on 02/18/17 20:06; Start 02/17/17 at 21:00; Stop 02/18/17 at 22:00; Status DC Trazodone HCl (Desyrel) 12.5 mg QID PO Last administered on 02/28/17 16:43; Start 02/19/17 at 09:00; Stop 02/28/17 at 18:19; Status DC Risperidone (RisperDAL) 0.125 mg TID@0900,1300,1700 PO Last administered on 17:31; Start 02/20/17 at 09:00; Stop 02/20/17 at 22:50; Status DC Mirtazapine (Remeron) 15 mg QHS PO Last administered on 03/13/17 20:15; Start 02/21/17 at 21:00; Stop 03/14/17 at 15:48; Status DC Trazodone HCl (Desyrel) 50 mg PRN QHS PRN PO INSOMNIA, SEPTEMBER REPEAT X1 Last administered on 02/23/17 00:34; Start 02/20/17 at 22:45; Stop 02/23/17 at 10:59 ; Status DC Risperidone (RisperDAL) 0.25 mg TID@0900,1300,1700 PO Last administered on 02/24 17:20; Start 02/21/17 at 09:00; Stop 02/24/17 at 19:06; Status DC Trazodone HCl (Desyrel) 100 mg PRN QHS PRN PO INSOMNIA, SEPTEMBER REPEAT X1 Last administered on 03/26/17 22:21; Start 02/23/17 at 11:15 Risperidone (RisperDAL) 0.375 mg TID@0900,1300,1700 PO Last administered on 16:26; Start 02/25/17 at 09:00; Stop 02/26/17 at 18:57; Status DC Carbamazepine (TEGretol) 200 mg QHS PO Last administered on 02/27/17 19:14; Start 02/24/17 at 21:00; Stop 02/28/17 at 18:19; Status DC Enoxaparin Sodium (Lovenox) 40 mg Q24H SQ Last administered on 03/11/17 11:55 ; Start 02/25/17 at 14:00; Stop 03/12/17 at 10:01; Status DC Cefpodoxime Proxetil (Vantin) 100 mg BID PO Last administered on 03/06/17 08: 37; Start 02/25/17 at 21:00; Stop 03/06/17 at 12:55; Status DC Risperidone (RisperDAL) 0.5 mg TID@0900,1300,1700 PO Last administered on 03/14 12:40; Start 02/27/17 at 09:00; Stop 03/14/17 at 15:48; Status DC Carbamazepine (TEGretol) 150 mg BID PO Last administered on 03/03/17 08:14; Start 02/28/17 at 21:00; Stop 03/03/17 at 18:20; Status DC Trazodone HCl (Desyrel) 25 mg TID@0900,1300,1700 PO Last administered on 17:34; Start 03/01/17 at 09:00; Stop 03/09/17 at 18:31; Status DC Fluvoxamine Maleate (Luvox) 150 mg HS PO Last administered on 03/20/17 19:25 ; Start 02/28/17 at 21:00; Stop 03/21/17 at 18:47; Status DC [place] Carbonate 300 mg QHS PO Last administered on 03/12/17 19:20; Start 03/02/17 at 21:00; Stop 03/13/17 at 14:53; Status DC Influenza Virus Vaccine Quadrival (Fluarix Quad [id number] Syringe) 0.5 ml ONCE ONCE VAX IM Last administered on 03/04/17 09:57; Start 03/04/17 at 09:00; Stop 03/04/17 at 09:01; Status DC [place] Carbonate 150 mg DAILY PO Last administered on 03/13/17 09:52; Start 03/06/17 at 09:00; Stop 03/13/17 at 14:53; Status DC [place] Carbonate 75 mg DAILY PO Last administered on 03/13/17 09:51; Start 03/09/17 at 09:00; Stop 03/13/17 at 14:53; Status DC Trazodone HCl (Desyrel) 25 mg BID@1300,1700 PO Last administered on 03/10/17 17:19; Start 03/10/17 at 13:00; Stop 03/10/17 at 19:29; Status DC Trazodone HCl (Desyrel) 50 mg DAILY PO ; Start 03/10/17 at 09:00; Stop at 19:29; Status DC Magnesium Oxide (Magnesium Oxide) 400 mg DAILY PO Last administered on 08:41; Start 03/11/17 at 09:00 Trazodone HCl (Desyrel) 50 mg BID94 PO Last administered on 03/20/17 16:28; Start 03/11/17 at 09:00; Stop 03/20/17 at 18:59; Status DC Trazodone HCl (Desyrel) 25 mg DAILYWLUN PO Last administered on 03/20/17 13: 37; Start 03/11/17 at 12:00; Stop 03/20/17 at 18:59; Status DC Hydroxyzine Pamoate (Vistaril) 25 mg PRN Q6HRS PRN PO AGITATION Last administered on 03/26/17 22:21; Start 03/12/17 at 10:00 Enoxaparin Sodium (Lovenox) 40 mg Q24H SQ Last administered on 03/28/17 08:42 ; Start 03/13/17 at 09:00 [place] Carbonate 150 mg BID PO Last administered on 03/24/17 09:05; Start at 21:00; Stop 03/24/17 at 18:31; Status DC Mirtazapine (Remeron) 22.5 mg QHS PO Last administered on 03/28/17 19:49; Start 03/14/17 at 21:00 Risperidone (RisperDAL) 0.5 mg BID PO Last administered on 03/28/17 19:49; Start 03/14/17 at 21:00 Amoxicillin (Amoxil) 500 mg TID PO Last administered on 03/28/17 14:16; Start 03/17/17 at 19:30; Stop 03/28/17 at 17:05; Status DC Lactobacillus Acidophilus (Bacid, Kelly-Bid) 1 tab BID PO Last administered on 03/28/17 19:48; Start 03/17/17 at 19:30 Trazodone HCl (Desyrel) 50 mg TID@0900,1400,1600 PO Last administered on 16:04; Start 03/21/17 at 09:00; Stop 03/21/17 at 18:47; Status DC Fluvoxamine Maleate (Luvox) 175 mg HS PO Last administered on 03/23/17 19:27; Start 03/21/17 at 21:00; Stop 03/24/17 at 18:31; Status DC Trazodone HCl (Desyrel) 75 mg TID@0900,1600 PO Last administered on 03/23/17 17:10; Start 03/22/17 at 09:00; Stop 03/23/17 at 18:52; Status DC Trazodone HCl (Desyrel) 50 mg 1400 PO Last administered on 03/23/17 14:08; Start 03/22/17 at 14:00; Stop 03/23/17 at 18:52; Status DC Trazodone HCl (Desyrel) 100 mg TID@0900,1600 PO Last administered on 03/28/17 16:39; Start 03/24/17 at 09:00 Trazodone HCl (Desyrel) 75 mg DAILY@1400 PO Last administered on 03/28/17 14: 16; Start 03/24/17 at 14:00 Fluvoxamine Maleate (Luvox) 200 mg HS PO Last administered on 03/28/17 19:49; Start 03/24/17 at 21:00 Divalproex Sodium (Depakote Sprinkles) 250 mg BID PO Last administered on 19:49; Start 03/25/17 at 21:00 Active Scripts Active Reported Atorvastatin Calcium 40 Mg Tablet 40 Mg PO QHS Naproxen 500 Mg Tablet 500 Mg PO BID Lorazepam 0.5 Mg Tablet 0.5 Mg PO PRN Q4HRS PRN Seroquel (Quetiapine Fumarate) 25 Mg Tablet 25 Mg PO BID Zoloft (Sertraline Hcl) 100 Mg Tablet 100 Mg PO DAILY Levothyroxine Sodium 112 Mcg Tablet 112 Mcg PO DAILYAC Olanzapine 5 Mg Tablet 5 Mg PO HS Alprazolam 0.5 Mg Tablet 0.5 Mg PO BID Diagnosis: Problems: (1) Anxiety disorder (2) Bipolar 1 disorder, mixed, moderate (3) Dementia in Alzheimer's disease with delusions (4) Dementia in Alzheimer's disease with depression (5) Dementia, vascular, with depression (6) Dementia, vascular, with delusions (7) Impulse control disorder ELEANOR BILLS MD Mar 28, 2017 21:49
[2017-03-29] MEDS: LEVOTHYROXINE 112 MCG TABLET PO SCH (05:31)
[2017-03-29 06:22] VITALS: BP 119/72
[2017-03-29] MEDS: ENOXAPARIN 40 MG/0.4 ML DISP.SYRIN. SQ SCH (09:34)
[2017-03-29] MEDS: POLYETHYLENE GLYCOL 3350 17 GM PACKET. PO SCH (09:34)
[2017-03-29] MEDS: NAPROXEN 500 MG TABLET PO SCH ×2 (09:34→19:33)
[2017-03-29] MEDS: risperiDONE 0.5 MG TABLET. PO SCH ×2 (09:34→19:33)
[2017-03-29] MEDS: traZODone 50 MG TABLET. PO SCH ×3 (09:34→16:41)
[2017-03-29] MEDS: LACTOBACILLUS ACIDOPH & BULGAR 1 TABLET. PO SCH ×2 (09:35→19:32)
[2017-03-29] MEDS: MAGNESIUM OXIDE 400 MG TABLET PO SCH (09:35)
[2017-03-29] MEDS: DIVALPROEX 125 MG CAP.SPRINK PO SCH ×2 (09:35→19:33)
[2017-03-29] MEDS: DOCUSATE SODIUM 100 MG CAPSULE PO SCH ×2 (09:35→19:33)
--- NOTE | 2017-03-29 09:54 | PN ---
DATE: 03/27/2017 This late entry 03/27/2017 covers elements not covered in my initial note of 03/27/2017. SUBJECTIVE: I met with the patient in the evening of 03/27/2017. The patient continues to constantly yell cursing at staff. No yelling during dinnertime, which is an improvement. I returned the call from the patient's daughter, Silvina, . I had a lengthy discussion about the patient's diagnosis, progress, current psychotropics, multiple changes of psychotropics resulted in a little further therapeutic benefit so far. Silvina feels the patient wants to go home and yells constantly, that is an expression of frustration not being able to do this. REVIEW OF SYSTEMS: Ambulation impaired, in a Broda chair. No CV, , pulmonary, eye, ENT system symptoms on review. Reliability poor. MENTAL STATUS EXAM: Oriented to herself. Insight, judgment, recent and remote memory, attention, concentration, fund of knowledge poor, consistent with her diagnosis mentioned in my initial note. PLAN: Continue current psychotropics. Depakote is being adjusted, reviewed drug interactions, risk/benefit ratio favors no further change. ELEANOR BILLS MD DR: [email or web address]/[email or web address] JOB#: [id number] / [id number]
[2017-03-29 10:04] LABS: BASO # 0.1 x10^3/uL (0.0-0.2); BASO % 1 % (0-3); EOS # 0.6 x10^3/uL (0.0-0.7); EOS % 5 % (0-3); HEMOGLOBIN 12.8 g/dL (12.0-15.5); LYMPH # 1.4 x10^3/uL (1.0-4.8); LYMPH % 12 % (24-48); MEAN CORPUSCULAR HEMOGLOBIN 31 pg (25-35); MEAN CORPUSCULAR HGB CONC 34 g/dL (31-37); MEAN CORPUSCULAR VOLUME 93 fL (79-100); MONO # 0.6 x10^3/uL (0.0-1.1); MONO % 5 % (0-9); NEUT # 9.3 x10^3uL (1.8-7.7); NEUT % 78 % (31-73); PLATELET COUNT 331 x10^3/uL (140-400); RED CELL DISTRIBUTION WIDTH 15.3 % (11.5-14.5); WHITE BLOOD COUNT 11.9 x10^3/uL (4.0-11.0)
[2017-03-29 10:09] LABS: ALBUMIN 3.2 g/dL (3.4-5.0); ALBUMIN/GLOBULIN RATIO 1.2 (1.0-1.7); ALK PHOS 83 U/L (46-116); ALT (SGPT) 29 U/L (14-59); ANION GAP 5 (6-14); AST (SGOT) 13 U/L (15-37); BLOOD UREA NITROGEN 20 mg/dL (7-20); BUN/CREATININE RATIO 25 (6-20); CALCIUM 8.6 mg/dL (8.5-10.1); CARBON DIOXIDE 30 mmol/L (21-32); CHLORIDE 106 mmol/L (98-107); CREATININE 0.8 mg/dL (0.6-1.0); GFR 71.5; GLUCOSE 137 mg/dL (70-99); POTASSIUM 4.1 mmol/L (3.5-5.1); SODIUM 141 mmol/L (136-145); TOTAL BILIRUBIN 0.3 mg/dL (0.2-1.0); TOTAL PROTEIN 5.9 g/dL (6.4-8.2)
[2017-03-29 10:10] LABS: VAL ACID 33 mcg/mL (50-100)
[2017-03-29 16:38] VITALS: BP 139/65
[2017-03-29] MEDS: ATORVASTATIN CALCIUM 20 MG TABLET PO SCH (19:32)
[2017-03-29] MEDS: MIRTAZAPINE 15 MG TABLET PO SCH (19:33)
[2017-03-29] MEDS: LORazepam 0.5 MG TABLET PO PRN (20:47)
[2017-03-29] MEDS: traZODone 100 MG TABLET. PO PRN (20:47)
--- NOTE | 2017-03-29 21:51 | PDOC ---
Exam Jeanmarie Demential Exam: Jeanmarie Note: Please also refer to the separate dictated note~for this date of service dictated separately.~Patient seen individually. Discussed the patient with Nursing staff reviewed the chart.~Reviewed interim history and current functioning. Reviewed vital signs,~Labs/ Radiology~and current medications noted below. Continue current treatment with the changes noted in the dictated addendum note Assessment: Vital Signs: Vital Signs Date Time Temp Pulse Resp B/P (MAP) Pulse Ox O2 Delivery O2 Flow Rate FiO2 03/29/17 16:38 98.3 101 24 139/65 (89) 92 Room Air I&O Intake and Output 03/30/17 07:00 Intake Total 720 ml Balance 720 ml Intake Oral 720 ml Labs: Laboratory Tests Test 03/29/17 09:19 White Blood Count 11.9 x10^3/uL (4.0-11.0) H Red Blood Count 4.10 x10^6/uL (3.50-5.40) Hemoglobin 12.8 g/dL (12.0-15.5) Hematocrit 38.0 % (36.0-47.0) Mean Corpuscular Volume 93 fL (79-100) Mean Corpuscular Hemoglobin 31 pg (25-35) Mean Corpuscular Hemoglobin Concent 34 g/dL (31-37) Red Cell Distribution Width 15.3 % (11.5-14.5) H Platelet Count 331 x10^3/uL (140-400) Neutrophils (%) (Auto) 78 % (31-73) H Lymphocytes (%) (Auto) 12 % (24-48) L Monocytes (%) (Auto) 5 % (0-9) Eosinophils (%) (Auto) 5 % (0-3) H Basophils (%) (Auto) 1 % (0-3) Neutrophils # (Auto) 9.3 x10^3uL (1.8-7.7) H Lymphocytes # (Auto) 1.4 x10^3/uL (1.0-4.8) Monocytes # (Auto) 0.6 x10^3/uL (0.0-1.1) Eosinophils # (Auto) 0.6 x10^3/uL (0.0-0.7) Basophils # (Auto) 0.1 x10^3/uL (0.0-0.2) Sodium Level 141 mmol/L (136-145) Potassium Level 4.1 mmol/L (3.5-5.1) Chloride Level 106 mmol/L (98-107) Carbon Dioxide Level 30 mmol/L (21-32) Anion Gap 5 (6-14) L Blood Urea Nitrogen 20 mg/dL (7-20) Creatinine 0.8 mg/dL (0.6-1.0) Estimated GFR (Cockcroft-Gault) 71.5 BUN/Creatinine Ratio 25 (6-20) H Glucose Level 137 mg/dL (70-99) H Calcium Level 8.6 mg/dL (8.5-10.1) Magnesium Level 2.1 mg/dL (1.8-2.4) Total Bilirubin 0.3 mg/dL (0.2-1.0) Aspartate Amino Transferase (AST) 13 U/L (15-37) L Alanine Aminotransferase (ALT) 29 U/L (14-59) Alkaline Phosphatase 83 U/L (46-116) Total Protein 5.9 g/dL (6.4-8.2) L Albumin 3.2 g/dL (3.4-5.0) L Albumin/Globulin Ratio 1.2 (1.0-1.7) Valproic Acid Level 33 mcg/mL (50-100) L Valproic Acid Last Dose Date 03/28/2017 Valproic Acid Last Dose Time 2100 Current Medications: Meds: Current Medications Lorazepam (Ativan) 0.5 mg 1X ONCE PO Last administered on 02/01/17 19:14; Start 02/01/17 at 19:15; Stop 02/01/17 at 19:16; Status DC Ceftriaxone Sodium (Rocephin Im) 1 gm 1X ONCE IM Last administered on 20:45; Start 02/01/17 at 20:30; Stop 02/01/17 at 20:31; Status DC Acetaminophen (Tylenol) 650 mg PRN Q6HRS PRN PO MILD PAIN / TEMP Last administered on 03/08/17 09:20; Start 02/01/17 at 23:15 Multi-Ingredient Ointment (Analgesic [place]) 1 rosita PRN QID PRN TP MUSCLE PAIN; Start 02/01/17 at 23:15 Al Hydroxide/Mg Hydroxide (Mylanta Plus Xs) 15 ml PRN AFTMEALHC PRN PO DYSPEPSIA; Start 02/01/17 at 23:15 Magnesium Hydroxide (Milk Of Magnesia) 2,400 mg PRN QHS PRN PO CONSTIPATION Last administered on 02/13/17 02:05; Start 02/01/17 at 23:15 Olanzapine (ZyPREXA) 5 mg HS PO Last administered on 02/13/17 19:31; Start at 21:00; Stop 02/14/17 at 18:51; Status DC Quetiapine Fumarate (SEROquel) 25 mg BID PO Last administered on 02/08/17 08: 42; Start 02/02/17 at 09:00; Stop 02/08/17 at 19:16; Status DC Sertraline HCl (Zoloft) 100 mg DAILY PO Last administered on 02/06/17 08:01; Start 02/02/17 at 09:00; Stop 02/06/17 at 18:56; Status DC Olanzapine (ZyPREXA) 5 mg 1X ONCE PO Last administered on 02/02/17 00:27; Start 02/02/17 at 00:30; Stop 02/02/17 at 00:31; Status DC Alprazolam (Xanax) 0.5 mg BID PO Last administered on 02/13/17 11:42; Start at 09:00; Stop 02/13/17 at 18:35; Status DC Lorazepam (Ativan) 0.5 mg PRN Q4HRS PRN PO ANXIETY / AGITATION Last administered on 02/02/17 14:57; Start 02/02/17 at 00:15; Stop 02/02/17 at 15:59 ; Status DC Levothyroxine Sodium (Synthroid) 112 mcg DAILY06 PO Last administered on 05:31; Start 02/02/17 at 10:00 Naproxen (Naprosyn) 500 mg BID PO Last administered on 03/29/17 19:33; Start 02/02/17 at 09:00 Atorvastatin Calcium (Lipitor) 40 mg QHS PO Last administered on 03/29/17 19: 32; Start 02/02/17 at 21:00 Mirtazapine (Remeron) 7.5 mg QHS PO Last administered on 02/20/17 23:08; Start 02/02/17 at 21:00; Stop 02/21/17 at 19:38; Status DC Olanzapine (ZyPREXA ZYDIS) 2.5 mg PRN Q2HR PRN PO PSYCHOSIS Last administered on 03/29/17 20:47; Start 02/02/17 at 15:45 Alprazolam (Xanax) 0.25 mg PRN Q2HR PRN PO ANXIETY / AGITATION Last administered on 02/13/17 16:33; Start 02/02/17 at 15:45; Stop 02/13/17 at 18:35 ; Status DC Docusate Sodium (Colace) 100 mg BID PO Last administered on 03/29/17 19:33; Start 02/02/17 at 21:00 Polyethylene Glycol (miraLAX) 17 gm DAILY PO Last administered on 03/29/17 09: 34; Start 02/03/17 at 09:00 Vitamin D (Vitamin D3) 50,000 unit WEEKLY PO Last administered on 03/24/17 09: 05; Start 02/10/17 at 09:00 Divalproex Sodium (Depakote Sprinkles) 125 mg TID@0900,1300,1700 PO Last administered on 02/06/17 16:46; Start 02/04/17 at 09:00; Stop 02/06/17 at 18:56 ; Status DC Divalproex Sodium (Depakote Sprinkles) 250 mg TID@0900,1300,1700 PO Last administered on 02/09/17 09:13; Start 02/07/17 at 09:00; Stop 02/09/17 at 13:03 ; Status DC Fluvoxamine Maleate (Luvox) 50 mg HS PO Last administered on 02/13/17 19:32; Start 02/06/17 at 21:00; Stop 02/14/17 at 18:51; Status DC Quetiapine Fumarate (SEROquel) 25 mg TID PO Last administered on 02/09/17 09: 16; Start 02/09/17 at 09:00; Stop 02/09/17 at 13:30; Status DC Divalproex Sodium (Depakote Sprinkles) 375 mg TID@0900,1300,1700 PO Last administered on 02/16/17 08:01; Start 02/09/17 at 13:00; Stop 02/16/17 at 19:13 ; Status DC Quetiapine Fumarate (SEROquel) 37.5 mg TID PO Last administered on 02/12/17 12 :55; Start 02/09/17 at 14:00; Stop 02/12/17 at 17:56; Status DC Olanzapine (ZyPREXA) 5 mg 1X ONCE PO Last administered on 02/12/17 11:57; Start 02/12/17 at 12:00; Stop 02/12/17 at 12:01; Status DC Quetiapine Fumarate (SEROquel) 50 mg TID PO Last administered on 02/19/17 13: 43; Start 02/12/17 at 21:00; Stop 02/19/17 at 18:29; Status DC Lorazepam (Ativan) 0.5 mg PRN Q2HR PRN PO ANXIETY / AGITATION Last administered on 03/29/17 20:47; Start 02/13/17 at 18:45 Lorazepam (Ativan) 0.5 mg BID PO Last administered on 02/16/17 08:04; Start at 21:00; Stop 02/17/17 at 17:37; Status DC Fluvoxamine Maleate (Luvox) 75 mg HS PO Last administered on 02/15/17 19:11; Start 02/14/17 at 21:00; Stop 02/16/17 at 22:01; Status DC Trazodone HCl (Desyrel) 12.5 mg TID PO Last administered on 02/14/17 19:39; Start 02/14/17 at 19:00; Stop 02/14/17 at 21:12; Status DC Trazodone HCl (Desyrel) 12.5 mg TIDWMEALS PO Last administered on 02/19/17 07: 57; Start 02/15/17 at 08:00; Stop 02/19/17 at 09:00; Status DC Fluvoxamine Maleate (Luvox) 100 mg HS PO Last administered on 02/27/17 19:14; Start 02/16/17 at 21:00; Stop 02/28/17 at 18:33; Status DC Lorazepam (Ativan) 0.25 mg BID PO Last administered on 02/18/17 20:06; Start 02/17/17 at 21:00; Stop 02/18/17 at 22:00; Status DC Trazodone HCl (Desyrel) 12.5 mg QID PO Last administered on 02/28/17 16:43; Start 02/19/17 at 09:00; Stop 02/28/17 at 18:19; Status DC Risperidone (RisperDAL) 0.125 mg TID@0900,1300,1700 PO Last administered on 17:31; Start 02/20/17 at 09:00; Stop 02/20/17 at 22:50; Status DC Mirtazapine (Remeron) 15 mg QHS PO Last administered on 03/13/17 20:15; Start 02/21/17 at 21:00; Stop 03/14/17 at 15:48; Status DC Trazodone HCl (Desyrel) 50 mg PRN QHS PRN PO INSOMNIA, MAY REPEAT X1 Last administered on 02/23/17 00:34; Start 02/20/17 at 22:45; Stop 02/23/17 at 10:59 ; Status DC Risperidone (RisperDAL) 0.25 mg TID@0900,1300,1700 PO Last administered on 02/24 17:20; Start 02/21/17 at 09:00; Stop 02/24/17 at 19:06; Status DC Trazodone HCl (Desyrel) 100 mg PRN QHS PRN PO INSOMNIA, MAY REPEAT X1 Last administered on 03/29/17 20:47; Start 02/23/17 at 11:15 Risperidone (RisperDAL) 0.375 mg TID@0900,1300,1700 PO Last administered on 16:26; Start 02/25/17 at 09:00; Stop 02/26/17 at 18:57; Status DC Carbamazepine (TEGretol) 200 mg QHS PO Last administered on 02/27/17 19:14; Start 02/24/17 at 21:00; Stop 02/28/17 at 18:19; Status DC Enoxaparin Sodium (Lovenox) 40 mg Q24H SQ Last administered on 03/11/17 11:55 ; Start 02/25/17 at 14:00; Stop 03/12/17 at 10:01; Status DC Cefpodoxime Proxetil (Vantin) 100 mg BID PO Last administered on 03/06/17 08: 37; Start 02/25/17 at 21:00; Stop 03/06/17 at 12:55; Status DC Risperidone (RisperDAL) 0.5 mg TID@0900,1300,1700 PO Last administered on 03/14 12:40; Start 02/27/17 at 09:00; Stop 03/14/17 at 15:48; Status DC Carbamazepine (TEGretol) 150 mg BID PO Last administered on 03/03/17 08:14; Start 02/28/17 at 21:00; Stop 03/03/17 at 18:20; Status DC Trazodone HCl (Desyrel) 25 mg TID@0900,1300,1700 PO Last administered on 17:34; Start 03/01/17 at 09:00; Stop 03/09/17 at 18:31; Status DC Fluvoxamine Maleate (Luvox) 150 mg HS PO Last administered on 03/20/17 19:25 ; Start 02/28/17 at 21:00; Stop 03/21/17 at 18:47; Status DC [place] Carbonate 300 mg QHS PO Last administered on 03/12/17 19:20; Start 03/02/17 at 21:00; Stop 03/13/17 at 14:53; Status DC Influenza Virus Vaccine Quadrival (Fluarix Quad 4637-4097 Syringe) 0.5 ml ONCE ONCE VAX IM Last administered on 03/04/17 09:57; Start 03/04/17 at 09:00; Stop 03/04/17 at 09:01; Status DC [place] Carbonate 150 mg DAILY PO Last administered on 03/13/17 09:52; Start 03/06/17 at 09:00; Stop 03/13/17 at 14:53; Status DC [place] Carbonate 75 mg DAILY PO Last administered on 03/13/17 09:51; Start 03/09/17 at 09:00; Stop 03/13/17 at 14:53; Status DC Trazodone HCl (Desyrel) 25 mg BID@1300,1700 PO Last administered on 03/10/17 17:19; Start 03/10/17 at 13:00; Stop 03/10/17 at 19:29; Status DC Trazodone HCl (Desyrel) 50 mg DAILY PO ; Start 03/10/17 at 09:00; Stop at 19:29; Status DC Magnesium Oxide (Magnesium Oxide) 400 mg DAILY PO Last administered on 09:35; Start 03/11/17 at 09:00 Trazodone HCl (Desyrel) 50 mg BID94 PO Last administered on 03/20/17 16:28; Start 03/11/17 at 09:00; Stop 03/20/17 at 18:59; Status DC Trazodone HCl (Desyrel) 25 mg DAILYWLUN PO Last administered on 03/20/17 13: 37; Start 03/11/17 at 12:00; Stop 03/20/17 at 18:59; Status DC Hydroxyzine Pamoate (Vistaril) 25 mg PRN Q6HRS PRN PO AGITATION Last administered on 03/26/17 22:21; Start 03/12/17 at 10:00 Enoxaparin Sodium (Lovenox) 40 mg Q24H SQ Last administered on 03/29/17 09:34 ; Start 03/13/17 at 09:00 [place] Carbonate 150 mg BID PO Last administered on 03/24/17 09:05; Start at 21:00; Stop 03/24/17 at 18:31; Status DC Mirtazapine (Remeron) 22.5 mg QHS PO Last administered on 03/29/17 19:33; Start 03/14/17 at 21:00 Risperidone (RisperDAL) 0.5 mg BID PO Last administered on 03/29/17 19:33; Start 03/14/17 at 21:00 Amoxicillin (Amoxil) 500 mg TID PO Last administered on 03/28/17 14:16; Start 03/17/17 at 19:30; Stop 03/28/17 at 17:05; Status DC Lactobacillus Acidophilus (Bacid, Kelly-Bid) 1 tab BID PO Last administered on 03/29/17 19:32; Start 03/17/17 at 19:30 Trazodone HCl (Desyrel) 50 mg TID@0900,1400,1600 PO Last administered on 16:04; Start 03/21/17 at 09:00; Stop 03/21/17 at 18:47; Status DC Fluvoxamine Maleate (Luvox) 175 mg HS PO Last administered on 03/23/17 19:27; Start 03/21/17 at 21:00; Stop 03/24/17 at 18:31; Status DC Trazodone HCl (Desyrel) 75 mg TID@0900,1600 PO Last administered on 03/23/17 17:10; Start 03/22/17 at 09:00; Stop 03/23/17 at 18:52; Status DC Trazodone HCl (Desyrel) 50 mg 1400 PO Last administered on 03/23/17 14:08; Start 03/22/17 at 14:00; Stop 03/23/17 at 18:52; Status DC Trazodone HCl (Desyrel) 100 mg TID@0900,1600 PO Last administered on 03/29/17 16:41; Start 03/24/17 at 09:00 Trazodone HCl (Desyrel) 75 mg DAILY@1400 PO Last administered on 03/29/17 14: 04; Start 03/24/17 at 14:00 Fluvoxamine Maleate (Luvox) 200 mg HS PO Last administered on 03/29/17 19:33; Start 03/24/17 at 21:00 Divalproex Sodium (Depakote Sprinkles) 250 mg BID PO Last administered on 09:35; Start 03/25/17 at 21:00; Stop 03/29/17 at 17:21; Status DC Divalproex Sodium (Depakote Sprinkles) 375 mg BID PO Last administered on 19:33; Start 03/29/17 at 21:00 Active Scripts Active Reported Atorvastatin Calcium 40 Mg Tablet 40 Mg PO QHS Naproxen 500 Mg Tablet 500 Mg PO BID Lorazepam 0.5 Mg Tablet 0.5 Mg PO PRN Q4HRS PRN Seroquel (Quetiapine Fumarate) 25 Mg Tablet 25 Mg PO BID Zoloft (Sertraline Hcl) 100 Mg Tablet 100 Mg PO DAILY Levothyroxine Sodium 112 Mcg Tablet 112 Mcg PO DAILYAC Olanzapine 5 Mg Tablet 5 Mg PO HS Alprazolam 0.5 Mg Tablet 0.5 Mg PO BID Diagnosis: Problems: (1) Anxiety disorder (2) Bipolar 1 disorder, mixed, moderate (3) Dementia in Alzheimer's disease with delusions (4) Dementia in Alzheimer's disease with depression (5) Dementia, vascular, with depression (6) Dementia, vascular, with delusions (7) Impulse control disorder ELEANOR BILLS MD Mar 29, 2017 21:51
[2017-03-30] MEDS: hydrOXYzine PAMOATE 25 MG CAPSULE PO PRN ×3 (02:22→20:27)
[2017-03-30] MEDS: LEVOTHYROXINE 112 MCG TABLET PO SCH (02:23)
--- NOTE | 2017-03-30 04:18 | PN ---
DATE: 03/28/2017 This late entry for 03/28/2017 covers elements not covered in my initial note of 03/28/2017. SUBJECTIVE: I met with the patient in the evening of 03/28/2017. Reportedly, per nursing report, there is no significant change. The patient has still been intermittently yelling wanting to go to the toilet and change her brief frequently, calling nursing staff "shut up fat butt, asshole." She received Ativan, Zyprexa at 1448, did better after that, slept for about 40 minutes. REVIEW OF SYSTEMS: Ambulation impaired, in a Broda chair. No CV, , pulmonary, eye, ENT system symptoms on review. Reliability poor. MENTAL STATUS EXAM: Oriented to herself. Insight, judgment, recent and remote memory, attention, concentration, fund of knowledge poor, consistent with her diagnosis mentioned in my initial note. LABORATORY DATA: Reviewed. IMPRESSION: Unchanged from initial note. PLAN: Continue current psychotropics. Reviewed drug interactions. Risk/benefit ratio favors no further change. ELEANOR BILLS MD DR: [email or web address]/meli JOB#: [id number] / [id number]
[2017-03-30 06:50] VITALS: BP 160/80
[2017-03-30] MEDS: ENOXAPARIN 40 MG/0.4 ML DISP.SYRIN. SQ SCH (09:52)
[2017-03-30] MEDS: POLYETHYLENE GLYCOL 3350 17 GM PACKET. PO SCH (09:52)
[2017-03-30] MEDS: NAPROXEN 500 MG TABLET PO SCH ×2 (09:53→19:29)
[2017-03-30] MEDS: risperiDONE 0.5 MG TABLET. PO SCH ×2 (09:53→19:30)
[2017-03-30] MEDS: MAGNESIUM OXIDE 400 MG TABLET PO SCH (09:53)
[2017-03-30] MEDS: DOCUSATE SODIUM 100 MG CAPSULE PO SCH ×2 (09:53→19:30)
[2017-03-30] MEDS: LACTOBACILLUS ACIDOPH & BULGAR 1 TABLET. PO SCH ×2 (09:54→19:29)
[2017-03-30] MEDS: traZODone 50 MG TABLET. PO SCH ×3 (09:54→17:14)
[2017-03-30] MEDS: DIVALPROEX 125 MG CAP.SPRINK PO SCH ×2 (09:54→19:29)
[2017-03-30] MEDS: LORazepam 0.5 MG TABLET PO PRN ×2 (10:41→22:44)
[2017-03-30] MEDS: ATORVASTATIN CALCIUM 20 MG TABLET PO SCH (19:29)
[2017-03-30] MEDS: MIRTAZAPINE 15 MG TABLET PO SCH (19:30)
[2017-03-30] MEDS: traZODone 100 MG TABLET. PO PRN ×2 (20:27→22:44)
[2017-03-31] MEDS: LEVOTHYROXINE 112 MCG TABLET PO SCH (05:54)
[2017-03-31 06:19] VITALS: BP 117/68
[2017-03-31] MEDS: DOCUSATE SODIUM 100 MG CAPSULE PO SCH ×2 (08:37→19:36)
[2017-03-31] MEDS: LACTOBACILLUS ACIDOPH & BULGAR 1 TABLET. PO SCH ×2 (08:37→19:35)
[2017-03-31] MEDS: ENOXAPARIN 40 MG/0.4 ML DISP.SYRIN. SQ SCH (08:38)
[2017-03-31] MEDS: POLYETHYLENE GLYCOL 3350 17 GM PACKET. PO SCH (08:38)
[2017-03-31] MEDS: DIVALPROEX 125 MG CAP.SPRINK PO SCH ×2 (08:38→19:36)
[2017-03-31] MEDS: CHOLECALCIFEROL (VITAMIN D3) 50,000 UNIT CAPSULE PO SCH (08:38)
[2017-03-31] MEDS: NAPROXEN 500 MG TABLET PO SCH ×2 (08:38→19:36)
[2017-03-31] MEDS: MAGNESIUM OXIDE 400 MG TABLET PO SCH (08:38)
[2017-03-31] MEDS: risperiDONE 0.5 MG TABLET. PO SCH ×2 (08:38→19:36)
[2017-03-31] MEDS: traZODone 50 MG TABLET. PO SCH ×3 (08:38→17:39)
[2017-03-31] MEDS: LORazepam 0.5 MG TABLET PO PRN ×3 (08:40→23:26)
[2017-03-31 16:42] VITALS: BP 125/64
[2017-03-31] MEDS: ATORVASTATIN CALCIUM 20 MG TABLET PO SCH (19:35)
[2017-03-31] MEDS: MIRTAZAPINE 15 MG TABLET PO SCH (19:35)
--- NOTE | 2017-03-31 20:14 | PDOC ---
Exam Note: Jeanmarie Note: Please also refer to the separate dictated note~for this date of service dictated separately.~Patient seen individually. Discussed the patient with Nursing staff reviewed the chart.~Reviewed interim history and current functioning. Reviewed vital signs,~Labs/ Radiology~and current medications noted below. Continue current treatment with the changes noted in the dictated addendum note Assessment: Vital Signs: Vital Signs Date Time Temp Pulse Resp B/P (MAP) Pulse Ox O2 Delivery O2 Flow Rate FiO2 03/31/17 16:42 98.0 93 18 125/64 (84) 96 03/29/17 16:38 Room Air I&O Intake and Output 04/01/17 07:00 Intake Total 960 ml Balance 960 ml Intake Oral 960 ml # Bowel Movements 1 Current Medications: Meds: Current Medications Lorazepam (Ativan) 0.5 mg 1X ONCE PO Last administered on 02/01/17 19:14; Start 02/01/17 at 19:15; Stop 02/01/17 at 19:16; Status DC Ceftriaxone Sodium (Rocephin Im) 1 gm 1X ONCE IM Last administered on 20:45; Start 02/01/17 at 20:30; Stop 02/01/17 at 20:31; Status DC Acetaminophen (Tylenol) 650 mg PRN Q6HRS PRN PO MILD PAIN / TEMP Last administered on 03/08/17 09:20; Start 02/01/17 at 23:15 Multi-Ingredient Ointment (Analgesic [place]) 1 rosita PRN QID PRN TP MUSCLE PAIN; Start 02/01/17 at 23:15 Al Hydroxide/Mg Hydroxide (Mylanta Plus Xs) 15 ml PRN AFTMEALHC PRN PO DYSPEPSIA; Start 02/01/17 at 23:15 Magnesium Hydroxide (Milk Of Magnesia) 2,400 mg PRN QHS PRN PO CONSTIPATION Last administered on 02/13/17 02:05; Start 02/01/17 at 23:15 Olanzapine (ZyPREXA) 5 mg HS PO Last administered on 02/13/17 19:31; Start at 21:00; Stop 02/14/17 at 18:51; Status DC Quetiapine Fumarate (SEROquel) 25 mg BID PO Last administered on 02/08/17 08: 42; Start 02/02/17 at 09:00; Stop 02/08/17 at 19:16; Status DC Sertraline HCl (Zoloft) 100 mg DAILY PO Last administered on 02/06/17 08:01; Start 02/02/17 at 09:00; Stop 02/06/17 at 18:56; Status DC Olanzapine (ZyPREXA) 5 mg 1X ONCE PO Last administered on 02/02/17 00:27; Start 02/02/17 at 00:30; Stop 02/02/17 at 00:31; Status DC Alprazolam (Xanax) 0.5 mg BID PO Last administered on 02/13/17 11:42; Start at 09:00; Stop 02/13/17 at 18:35; Status DC Lorazepam (Ativan) 0.5 mg PRN Q4HRS PRN PO ANXIETY / AGITATION Last administered on 02/02/17 14:57; Start 02/02/17 at 00:15; Stop 02/02/17 at 15:59 ; Status DC Levothyroxine Sodium (Synthroid) 112 mcg DAILY06 PO Last administered on 05:54; Start 02/02/17 at 10:00 Naproxen (Naprosyn) 500 mg BID PO Last administered on 03/31/17 19:36; Start 02/02/17 at 09:00 Atorvastatin Calcium (Lipitor) 40 mg QHS PO Last administered on 03/31/17 19: 35; Start 02/02/17 at 21:00 Mirtazapine (Remeron) 7.5 mg QHS PO Last administered on 02/20/17 23:08; Start 02/02/17 at 21:00; Stop 02/21/17 at 19:38; Status DC Olanzapine (ZyPREXA ZYDIS) 2.5 mg PRN Q2HR PRN PO PSYCHOSIS Last administered on 03/30/17 02:23; Start 02/02/17 at 15:45 Alprazolam (Xanax) 0.25 mg PRN Q2HR PRN PO ANXIETY / AGITATION Last administered on 02/13/17 16:33; Start 02/02/17 at 15:45; Stop 02/13/17 at 18:35 ; Status DC Docusate Sodium (Colace) 100 mg BID PO Last administered on 03/31/17 19:36; Start 02/02/17 at 21:00 Polyethylene Glycol (miraLAX) 17 gm DAILY PO Last administered on 03/31/17 08 :38; Start 02/03/17 at 09:00 Vitamin D (Vitamin D3) 50,000 unit WEEKLY PO Last administered on 03/31/17 08 :38; Start 02/10/17 at 09:00 Divalproex Sodium (Depakote Sprinkles) 125 mg TID@0900,1300,1700 PO Last administered on 02/06/17 16:46; Start 02/04/17 at 09:00; Stop 02/06/17 at 18:56 ; Status DC Divalproex Sodium (Depakote Sprinkles) 250 mg TID@0900,1300,1700 PO Last administered on 02/09/17 09:13; Start 02/07/17 at 09:00; Stop 02/09/17 at 13:03 ; Status DC Fluvoxamine Maleate (Luvox) 50 mg HS PO Last administered on 02/13/17 19:32; Start 02/06/17 at 21:00; Stop 02/14/17 at 18:51; Status DC Quetiapine Fumarate (SEROquel) 25 mg TID PO Last administered on 02/09/17 09: 16; Start 02/09/17 at 09:00; Stop 02/09/17 at 13:30; Status DC Divalproex Sodium (Depakote Sprinkles) 375 mg TID@0900,1300,1700 PO Last administered on 02/16/17 08:01; Start 02/09/17 at 13:00; Stop 02/16/17 at 19:13 ; Status DC Quetiapine Fumarate (SEROquel) 37.5 mg TID PO Last administered on 02/12/17 12 :55; Start 02/09/17 at 14:00; Stop 02/12/17 at 17:56; Status DC Olanzapine (ZyPREXA) 5 mg 1X ONCE PO Last administered on 02/12/17 11:57; Start 02/12/17 at 12:00; Stop 02/12/17 at 12:01; Status DC Quetiapine Fumarate (SEROquel) 50 mg TID PO Last administered on 02/19/17 13: 43; Start 02/12/17 at 21:00; Stop 02/19/17 at 18:29; Status DC Lorazepam (Ativan) 0.5 mg PRN Q2HR PRN PO ANXIETY / AGITATION Last administered on 03/31/17 17:39; Start 02/13/17 at 18:45 Lorazepam (Ativan) 0.5 mg BID PO Last administered on 02/16/17 08:04; Start at 21:00; Stop 02/17/17 at 17:37; Status DC Fluvoxamine Maleate (Luvox) 75 mg HS PO Last administered on 02/15/17 19:11; Start 02/14/17 at 21:00; Stop 02/16/17 at 22:01; Status DC Trazodone HCl (Desyrel) 12.5 mg TID PO Last administered on 02/14/17 19:39; Start 02/14/17 at 19:00; Stop 02/14/17 at 21:12; Status DC Trazodone HCl (Desyrel) 12.5 mg TIDWMEALS PO Last administered on 02/19/17 07: 57; Start 02/15/17 at 08:00; Stop 02/19/17 at 09:00; Status DC Fluvoxamine Maleate (Luvox) 100 mg HS PO Last administered on 02/27/17 19:14; Start 02/16/17 at 21:00; Stop 02/28/17 at 18:33; Status DC Lorazepam (Ativan) 0.25 mg BID PO Last administered on 02/18/17 20:06; Start 02/17/17 at 21:00; Stop 02/18/17 at 22:00; Status DC Trazodone HCl (Desyrel) 12.5 mg QID PO Last administered on 02/28/17 16:43; Start 02/19/17 at 09:00; Stop 02/28/17 at 18:19; Status DC Risperidone (RisperDAL) 0.125 mg TID@0900,1300,1700 PO Last administered on 17:31; Start 02/20/17 at 09:00; Stop 02/20/17 at 22:50; Status DC Mirtazapine (Remeron) 15 mg QHS PO Last administered on 03/13/17 20:15; Start 02/21/17 at 21:00; Stop 03/14/17 at 15:48; Status DC Trazodone HCl (Desyrel) 50 mg PRN QHS PRN PO INSOMNIA, MAY REPEAT X1 Last administered on 02/23/17 00:34; Start 02/20/17 at 22:45; Stop 02/23/17 at 10:59 ; Status DC Risperidone (RisperDAL) 0.25 mg TID@0900,1300,1700 PO Last administered on 02/24 17:20; Start 02/21/17 at 09:00; Stop 02/24/17 at 19:06; Status DC Trazodone HCl (Desyrel) 100 mg PRN QHS PRN PO INSOMNIA, SEPTEMBER REPEAT X1 Last administered on 03/30/17 22:44; Start 02/23/17 at 11:15 Risperidone (RisperDAL) 0.375 mg TID@0900,1300,1700 PO Last administered on 16:26; Start 02/25/17 at 09:00; Stop 02/26/17 at 18:57; Status DC Carbamazepine (TEGretol) 200 mg QHS PO Last administered on 02/27/17 19:14; Start 02/24/17 at 21:00; Stop 02/28/17 at 18:19; Status DC Enoxaparin Sodium (Lovenox) 40 mg Q24H SQ Last administered on 03/11/17 11:55 ; Start 02/25/17 at 14:00; Stop 03/12/17 at 10:01; Status DC Cefpodoxime Proxetil (Vantin) 100 mg BID PO Last administered on 03/06/17 08: 37; Start 02/25/17 at 21:00; Stop 03/06/17 at 12:55; Status DC Risperidone (RisperDAL) 0.5 mg TID@0900,1300,1700 PO Last administered on 03/14 12:40; Start 02/27/17 at 09:00; Stop 03/14/17 at 15:48; Status DC Carbamazepine (TEGretol) 150 mg BID PO Last administered on 03/03/17 08:14; Start 02/28/17 at 21:00; Stop 03/03/17 at 18:20; Status DC Trazodone HCl (Desyrel) 25 mg TID@0900,1300,1700 PO Last administered on 17:34; Start 03/01/17 at 09:00; Stop 03/09/17 at 18:31; Status DC Fluvoxamine Maleate (Luvox) 150 mg HS PO Last administered on 03/20/17 19:25 ; Start 02/28/17 at 21:00; Stop 03/21/17 at 18:47; Status DC Ivy Carbonate 300 mg QHS PO Last administered on 03/12/17 19:20; Start 03/02/17 at 21:00; Stop 03/13/17 at 14:53; Status DC Influenza Virus Vaccine Quadrival (Fluarix Quad [id number] Syringe) 0.5 ml ONCE ONCE VAX IM Last administered on 03/04/17 09:57; Start 03/04/17 at 09:00; Stop 03/04/17 at 09:01; Status DC Ivy Carbonate 150 mg DAILY PO Last administered on 03/13/17 09:52; Start 03/06/17 at 09:00; Stop 03/13/17 at 14:53; Status DC Ivy Carbonate 75 mg DAILY PO Last administered on 03/13/17 09:51; Start 03/09/17 at 09:00; Stop 03/13/17 at 14:53; Status DC Trazodone HCl (Desyrel) 25 mg BID@1300,1700 PO Last administered on 03/10/17 17:19; Start 03/10/17 at 13:00; Stop 03/10/17 at 19:29; Status DC Trazodone HCl (Desyrel) 50 mg DAILY PO ; Start 03/10/17 at 09:00; Stop at 19:29; Status DC Magnesium Oxide (Magnesium Oxide) 400 mg DAILY PO Last administered on 08:38; Start 03/11/17 at 09:00 Trazodone HCl (Desyrel) 50 mg BID94 PO Last administered on 03/20/17 16:28; Start 03/11/17 at 09:00; Stop 03/20/17 at 18:59; Status DC Trazodone HCl (Desyrel) 25 mg DAILYWLUN PO Last administered on 03/20/17 13: 37; Start 03/11/17 at 12:00; Stop 03/20/17 at 18:59; Status DC Hydroxyzine Pamoate (Vistaril) 25 mg PRN Q6HRS PRN PO AGITATION Last administered on 03/30/17 20:27; Start 03/12/17 at 10:00 Enoxaparin Sodium (Lovenox) 40 mg Q24H SQ Last administered on 03/31/17 08:38 ; Start 03/13/17 at 09:00 Ivy Carbonate 150 mg BID PO Last administered on 03/24/17 09:05; Start at 21:00; Stop 03/24/17 at 18:31; Status DC Mirtazapine (Remeron) 22.5 mg QHS PO Last administered on 03/31/17 19:35; Start 03/14/17 at 21:00 Risperidone (RisperDAL) 0.5 mg BID PO Last administered on 03/31/17 19:36; Start 03/14/17 at 21:00 Amoxicillin (Amoxil) 500 mg TID PO Last administered on 03/28/17 14:16; Start 03/17/17 at 19:30; Stop 03/28/17 at 17:05; Status DC Lactobacillus Acidophilus (Bacid, Kelly-Bid) 1 tab BID PO Last administered on 03/31/17 19:35; Start 03/17/17 at 19:30 Trazodone HCl (Desyrel) 50 mg TID@0900,1400,1600 PO Last administered on 16:04; Start 03/21/17 at 09:00; Stop 03/21/17 at 18:47; Status DC Fluvoxamine Maleate (Luvox) 175 mg HS PO Last administered on 03/23/17 19:27; Start 03/21/17 at 21:00; Stop 03/24/17 at 18:31; Status DC Trazodone HCl (Desyrel) 75 mg TID@0900,1600 PO Last administered on 03/23/17 17:10; Start 03/22/17 at 09:00; Stop 03/23/17 at 18:52; Status DC Trazodone HCl (Desyrel) 50 mg 1400 PO Last administered on 03/23/17 14:08; Start 03/22/17 at 14:00; Stop 03/23/17 at 18:52; Status DC Trazodone HCl (Desyrel) 100 mg TID@0900,1600 PO Last administered on 17:39; Start 03/24/17 at 09:00 Trazodone HCl (Desyrel) 75 mg DAILY@1400 PO Last administered on 03/31/17 13: 44; Start 03/24/17 at 14:00 Fluvoxamine Maleate (Luvox) 200 mg HS PO Last administered on 03/31/17 19:36 ; Start 03/24/17 at 21:00 Divalproex Sodium (Depakote Sprinkles) 250 mg BID PO Last administered on 09:35; Start 03/25/17 at 21:00; Stop 03/29/17 at 17:21; Status DC Divalproex Sodium (Depakote Sprinkles) 375 mg BID PO Last administered on 03/31 19:36; Start 03/29/17 at 21:00 Active Scripts Active Reported Atorvastatin Calcium 40 Mg Tablet 40 Mg PO QHS Naproxen 500 Mg Tablet 500 Mg PO BID Lorazepam 0.5 Mg Tablet 0.5 Mg PO PRN Q4HRS PRN Seroquel (Quetiapine Fumarate) 25 Mg Tablet 25 Mg PO BID Zoloft (Sertraline Hcl) 100 Mg Tablet 100 Mg PO DAILY Levothyroxine Sodium 112 Mcg Tablet 112 Mcg PO DAILYAC Olanzapine 5 Mg Tablet 5 Mg PO HS Alprazolam 0.5 Mg Tablet 0.5 Mg PO BID I have reviewed the current psychotropics carefully including drug interactions. Risk benefit ratio favors no change other than as noted in my dictated progress note. Diagnosis: Problems: (1) Anxiety disorder (2) Bipolar 1 disorder, mixed, moderate (3) Dementia in Alzheimer's disease with delusions (4) Dementia in Alzheimer's disease with depression (5) Dementia, vascular, with depression (6) Dementia, vascular, with delusions (7) Impulse control disorder ELEANOR BILLS MD Mar 31, 2017 20:14
[2017-03-31] MEDS: traZODone 100 MG TABLET. PO PRN ×2 (21:44→23:26)
[2017-03-31] MEDS: hydrOXYzine PAMOATE 25 MG CAPSULE PO PRN (21:44)
[2017-04-01 06:09] VITALS: BP 118/66
[2017-04-01] MEDS: LEVOTHYROXINE 112 MCG TABLET PO SCH (06:31)
--- NOTE | 2017-04-01 06:45 | PN ---
DATE: 03/29/2017 This is a late entry for date of service 03/29/2017 and covers elements not covered in my initial note of 03/29/2017. I met with the patient the evening of 03/29/2017, slept 5-1/2 hours previous evening, continuously yelling still. REVIEW OF SYSTEMS: Ambulation impaired, in a Broda chair. No CV, , pulmonary, eye, ENT system symptoms on review. Reliability poor. MENTAL STATUS EXAM: Oriented to herself. Insight, judgment, recent and remote memory, attention, concentration, fund of knowledge poor, consistent with her diagnosis mentioned in my. LABORATORY DATA: Reviewed. IMPRESSION: Unchanged from initial note. PLAN: Increase Depakote Sprinkles from 250 b.i.d. with the level of 33 to 375 b.i.d. Check CBC, CMP, valproic acid level in 3 days. Maintain the rest of psychotropics. Reviewed drug contractions, risk/benefit ratio favors no further change. ELEANOR BILLS MD DR: JAIME/meli JOB#: [id number] / [id number]
--- NOTE | 2017-04-01 06:48 | PN ---
DATE: 03/30/2017 This is a late entry for date of service 03/30/2017 and covers elements not covered in my initial note of 03/30/2017. SUBJECTIVE: The patient was staffed at a treatment team meeting with the entire team morning of 03/30/2017, seen individually in the evening of 03/30/2017. She continues to yell out, labile in her mood. REVIEW OF SYSTEMS: Ambulation impaired, in a Broda chair. No CV, , pulmonary, eye, ENT system symptoms on review. Reliability poor. MENTAL STATUS EXAM: Oriented to herself. Insight, judgment, recent and remote memory, attention, concentration, fund of knowledge poor, consistent with her diagnosis as mentioned in my initial note. PLAN: Continue current psychotropics. Await labs level on the increased Depakote. Adjust as clinically indicated. MAN Aden BILLS MD DR: JAIME/meli JOB#: [id number] / [id number]
[2017-04-01] MEDS: POLYETHYLENE GLYCOL 3350 17 GM PACKET. PO SCH (07:51)
[2017-04-01] MEDS: DIVALPROEX 125 MG CAP.SPRINK PO SCH ×2 (07:52→17:07)
[2017-04-01] MEDS: LACTOBACILLUS ACIDOPH & BULGAR 1 TABLET. PO SCH ×3 (07:52→17:10)
[2017-04-01] MEDS: DOCUSATE SODIUM 100 MG CAPSULE PO SCH ×2 (07:52→17:06)
[2017-04-01] MEDS: MAGNESIUM OXIDE 400 MG TABLET PO SCH (07:52)
[2017-04-01] MEDS: NAPROXEN 500 MG TABLET PO SCH ×2 (07:52→17:06)
[2017-04-01] MEDS: traZODone 50 MG TABLET. PO SCH ×3 (07:52→17:07)
[2017-04-01] MEDS: ENOXAPARIN 40 MG/0.4 ML DISP.SYRIN. SQ SCH (07:53)
[2017-04-01] MEDS: risperiDONE 0.5 MG TABLET. PO SCH ×2 (07:53→17:10)
[2017-04-01 08:32] LABS: ALBUMIN 3.2 g/dL (3.4-5.0); ALBUMIN/GLOBULIN RATIO 1.1 (1.0-1.7); ALK PHOS 80 U/L (46-116); ALT (SGPT) 30 U/L (14-59); ANION GAP 7 (6-14); AST (SGOT) 27 U/L (15-37); BLOOD UREA NITROGEN 24 mg/dL (7-20); BUN/CREATININE RATIO 40 (6-20); CALCIUM 8.4 mg/dL (8.5-10.1); CARBON DIOXIDE 26 mmol/L (21-32); CHLORIDE 108 mmol/L (98-107); CREATININE 0.6 mg/dL (0.6-1.0); GFR 99.7; GLUCOSE 87 mg/dL (70-99); MAGNESIUM 2.5 mg/dL (1.8-2.4); SODIUM 141 mmol/L (136-145); TOTAL BILIRUBIN 0.2 mg/dL (0.2-1.0); TOTAL PROTEIN 6.1 g/dL (6.4-8.2)
[2017-04-01 08:37] LABS: BASO # 0.1 x10^3/uL (0.0-0.2); BASO % 1 % (0-3); EOS # 0.7 x10^3/uL (0.0-0.7); EOS % 9 % (0-3); HEMATOCRIT 40.8 % (36.0-47.0); HEMOGLOBIN 13.9 g/dL (12.0-15.5); LYMPH # 1.8 x10^3/uL (1.0-4.8); LYMPH % 24 % (24-48); MEAN CORPUSCULAR HEMOGLOBIN 32 pg (25-35); MEAN CORPUSCULAR HGB CONC 34 g/dL (31-37); MEAN CORPUSCULAR VOLUME 93 fL (79-100); MONO # 0.6 x10^3/uL (0.0-1.1); MONO % 8 % (0-9); NEUT # 4.6 x10^3uL (1.8-7.7); NEUT % 59 % (31-73); PLATELET COUNT 209 x10^3/uL (140-400); RED BLOOD COUNT 4.37 x10^6/uL (3.50-5.40); RED CELL DISTRIBUTION WIDTH 15.5 % (11.5-14.5); WHITE BLOOD COUNT 7.8 x10^3/uL (4.0-11.0)
[2017-04-01 08:41] LABS: VAL ACID 59 mcg/mL (50-100)
[2017-04-01 08:42] LABS: POTASSIUM 4.5 mmol/L (3.5-5.1)
[2017-04-01 16:14] VITALS: BP 134/65
[2017-04-01] MEDS: ATORVASTATIN CALCIUM 20 MG TABLET PO SCH (17:06)
[2017-04-01] MEDS: MIRTAZAPINE 15 MG TABLET PO SCH (17:10)
--- NOTE | 2017-04-01 20:02 | PDOC ---
Exam Note: Jeanmarie Note: Please also refer to the separate dictated note~for this date of service dictated separately.~Patient seen individually. Discussed the patient with Nursing staff reviewed the chart.~Reviewed interim history and current functioning. Reviewed vital signs,~Labs/ Radiology~and current medications noted below. Continue current treatment with the changes noted in the dictated addendum note Assessment: Vital Signs: Vital Signs Date Time Temp Pulse Resp B/P (MAP) Pulse Ox O2 Delivery O2 Flow Rate FiO2 04/01/17 16:14 98.1 86 22 134/65 (88) 94 Room Air I&O Intake and Output 04/02/17 07:00 Intake Total 1020 ml Balance 1020 ml Intake Oral 1020 ml Labs: Laboratory Tests Test 04/01/17 07:52 White Blood Count 7.8 x10^3/uL (4.0-11.0) Red Blood Count 4.37 x10^6/uL (3.50-5.40) Hemoglobin 13.9 g/dL (12.0-15.5) Hematocrit 40.8 % (36.0-47.0) Mean Corpuscular Volume 93 fL (79-100) Mean Corpuscular Hemoglobin 32 pg (25-35) Mean Corpuscular Hemoglobin Concent 34 g/dL (31-37) Red Cell Distribution Width 15.5 % (11.5-14.5) H Platelet Count 209 x10^3/uL (140-400) Neutrophils (%) (Auto) 59 % (31-73) Lymphocytes (%) (Auto) 24 % (24-48) Monocytes (%) (Auto) 8 % (0-9) Eosinophils (%) (Auto) 9 % (0-3) H Basophils (%) (Auto) 1 % (0-3) Neutrophils # (Auto) 4.6 x10^3uL (1.8-7.7) Lymphocytes # (Auto) 1.8 x10^3/uL (1.0-4.8) Monocytes # (Auto) 0.6 x10^3/uL (0.0-1.1) Eosinophils # (Auto) 0.7 x10^3/uL (0.0-0.7) Basophils # (Auto) 0.1 x10^3/uL (0.0-0.2) Sodium Level 141 mmol/L (136-145) Potassium Level 4.5 mmol/L (3.5-5.1) Chloride Level 108 mmol/L (98-107) H Carbon Dioxide Level 26 mmol/L (21-32) Anion Gap 7 (6-14) Blood Urea Nitrogen 24 mg/dL (7-20) H Creatinine 0.6 mg/dL (0.6-1.0) Estimated GFR (Cockcroft-Gault) 99.7 BUN/Creatinine Ratio 40 (6-20) H Glucose Level 87 mg/dL (70-99) Calcium Level 8.4 mg/dL (8.5-10.1) L Magnesium Level 2.5 mg/dL (1.8-2.4) H Total Bilirubin 0.2 mg/dL (0.2-1.0) Aspartate Amino Transferase (AST) 27 U/L (15-37) Alanine Aminotransferase (ALT) 30 U/L (14-59) Alkaline Phosphatase 80 U/L (46-116) Total Protein 6.1 g/dL (6.4-8.2) L Albumin 3.2 g/dL (3.4-5.0) L Albumin/Globulin Ratio 1.1 (1.0-1.7) Valproic Acid Level 59 mcg/mL (50-100) Valproic Acid Last Dose Date 03/31/17 Valproic Acid Last Dose Time 2100 Current Medications: Meds: Current Medications Lorazepam (Ativan) 0.5 mg 1X ONCE PO Last administered on 02/01/17 19:14; Start 02/01/17 at 19:15; Stop 02/01/17 at 19:16; Status DC Ceftriaxone Sodium (Rocephin Im) 1 gm 1X ONCE IM Last administered on 20:45; Start 02/01/17 at 20:30; Stop 02/01/17 at 20:31; Status DC Acetaminophen (Tylenol) 650 mg PRN Q6HRS PRN PO MILD PAIN / TEMP Last administered on 03/08/17 09:20; Start 02/01/17 at 23:15 Multi-Ingredient Ointment (Analgesic [place]) 1 rosita PRN QID PRN TP MUSCLE PAIN; Start 02/01/17 at 23:15 Al Hydroxide/Mg Hydroxide (Mylanta Plus Xs) 15 ml PRN AFTMEALHC PRN PO DYSPEPSIA; Start 02/01/17 at 23:15 Magnesium Hydroxide (Milk Of Magnesia) 2,400 mg PRN QHS PRN PO CONSTIPATION Last administered on 02/13/17 02:05; Start 02/01/17 at 23:15 Olanzapine (ZyPREXA) 5 mg HS PO Last administered on 02/13/17 19:31; Start at 21:00; Stop 02/14/17 at 18:51; Status DC Quetiapine Fumarate (SEROquel) 25 mg BID PO Last administered on 02/08/17 08: 42; Start 02/02/17 at 09:00; Stop 02/08/17 at 19:16; Status DC Sertraline HCl (Zoloft) 100 mg DAILY PO Last administered on 02/06/17 08:01; Start 02/02/17 at 09:00; Stop 02/06/17 at 18:56; Status DC Olanzapine (ZyPREXA) 5 mg 1X ONCE PO Last administered on 02/02/17 00:27; Start 02/02/17 at 00:30; Stop 02/02/17 at 00:31; Status DC Alprazolam (Xanax) 0.5 mg BID PO Last administered on 02/13/17 11:42; Start at 09:00; Stop 02/13/17 at 18:35; Status DC Lorazepam (Ativan) 0.5 mg PRN Q4HRS PRN PO ANXIETY / AGITATION Last administered on 02/02/17 14:57; Start 02/02/17 at 00:15; Stop 02/02/17 at 15:59 ; Status DC Levothyroxine Sodium (Synthroid) 112 mcg DAILY06 PO Last administered on 06:31; Start 02/02/17 at 10:00 Naproxen (Naprosyn) 500 mg BID PO Last administered on 04/01/17 17:06; Start 02/02/17 at 09:00 Atorvastatin Calcium (Lipitor) 40 mg QHS PO Last administered on 04/01/17 17: 06; Start 02/02/17 at 21:00 Mirtazapine (Remeron) 7.5 mg QHS PO Last administered on 02/20/17 23:08; Start 02/02/17 at 21:00; Stop 02/21/17 at 19:38; Status DC Olanzapine (ZyPREXA ZYDIS) 2.5 mg PRN Q2HR PRN PO PSYCHOSIS Last administered on 03/30/17 02:23; Start 02/02/17 at 15:45 Alprazolam (Xanax) 0.25 mg PRN Q2HR PRN PO ANXIETY / AGITATION Last administered on 02/13/17 16:33; Start 02/02/17 at 15:45; Stop 02/13/17 at 18:35 ; Status DC Docusate Sodium (Colace) 100 mg BID PO Last administered on 04/01/17 17:06; Start 02/02/17 at 21:00 Polyethylene Glycol (miraLAX) 17 gm DAILY PO Last administered on 04/01/17 07 :51; Start 02/03/17 at 09:00 Vitamin D (Vitamin D3) 50,000 unit WEEKLY PO Last administered on 03/31/17 08 :38; Start 02/10/17 at 09:00 Divalproex Sodium (Depakote Sprinkles) 125 mg TID@0900,1300,1700 PO Last administered on 02/06/17 16:46; Start 02/04/17 at 09:00; Stop 02/06/17 at 18:56 ; Status DC Divalproex Sodium (Depakote Sprinkles) 250 mg TID@0900,1300,1700 PO Last administered on 02/09/17 09:13; Start 02/07/17 at 09:00; Stop 02/09/17 at 13:03 ; Status DC Fluvoxamine Maleate (Luvox) 50 mg HS PO Last administered on 02/13/17 19:32; Start 02/06/17 at 21:00; Stop 02/14/17 at 18:51; Status DC Quetiapine Fumarate (SEROquel) 25 mg TID PO Last administered on 02/09/17 09: 16; Start 02/09/17 at 09:00; Stop 02/09/17 at 13:30; Status DC Divalproex Sodium (Depakote Sprinkles) 375 mg TID@0900,1300,1700 PO Last administered on 02/16/17 08:01; Start 02/09/17 at 13:00; Stop 02/16/17 at 19:13 ; Status DC Quetiapine Fumarate (SEROquel) 37.5 mg TID PO Last administered on 02/12/17 12 :55; Start 02/09/17 at 14:00; Stop 02/12/17 at 17:56; Status DC Olanzapine (ZyPREXA) 5 mg 1X ONCE PO Last administered on 02/12/17 11:57; Start 02/12/17 at 12:00; Stop 02/12/17 at 12:01; Status DC Quetiapine Fumarate (SEROquel) 50 mg TID PO Last administered on 02/19/17 13: 43; Start 02/12/17 at 21:00; Stop 02/19/17 at 18:29; Status DC Lorazepam (Ativan) 0.5 mg PRN Q2HR PRN PO ANXIETY / AGITATION Last administered on 03/31/17 23:26; Start 02/13/17 at 18:45 Lorazepam (Ativan) 0.5 mg BID PO Last administered on 02/16/17 08:04; Start at 21:00; Stop 02/17/17 at 17:37; Status DC Fluvoxamine Maleate (Luvox) 75 mg HS PO Last administered on 02/15/17 19:11; Start 02/14/17 at 21:00; Stop 02/16/17 at 22:01; Status DC Trazodone HCl (Desyrel) 12.5 mg TID PO Last administered on 02/14/17 19:39; Start 02/14/17 at 19:00; Stop 02/14/17 at 21:12; Status DC Trazodone HCl (Desyrel) 12.5 mg TIDWMEALS PO Last administered on 02/19/17 07: 57; Start 02/15/17 at 08:00; Stop 02/19/17 at 09:00; Status DC Fluvoxamine Maleate (Luvox) 100 mg HS PO Last administered on 02/27/17 19:14; Start 02/16/17 at 21:00; Stop 02/28/17 at 18:33; Status DC Lorazepam (Ativan) 0.25 mg BID PO Last administered on 02/18/17 20:06; Start 02/17/17 at 21:00; Stop 02/18/17 at 22:00; Status DC Trazodone HCl (Desyrel) 12.5 mg QID PO Last administered on 02/28/17 16:43; Start 02/19/17 at 09:00; Stop 02/28/17 at 18:19; Status DC Risperidone (RisperDAL) 0.125 mg TID@0900,1300,1700 PO Last administered on 17:31; Start 02/20/17 at 09:00; Stop 02/20/17 at 22:50; Status DC Mirtazapine (Remeron) 15 mg QHS PO Last administered on 03/13/17 20:15; Start 02/21/17 at 21:00; Stop 03/14/17 at 15:48; Status DC Trazodone HCl (Desyrel) 50 mg PRN QHS PRN PO INSOMNIA, MAY REPEAT X1 Last administered on 02/23/17 00:34; Start 02/20/17 at 22:45; Stop 02/23/17 at 10:59 ; Status DC Risperidone (RisperDAL) 0.25 mg TID@0900,1300,1700 PO Last administered on 02/24 17:20; Start 02/21/17 at 09:00; Stop 02/24/17 at 19:06; Status DC Trazodone HCl (Desyrel) 100 mg PRN QHS PRN PO INSOMNIA, MAY REPEAT X1 Last administered on 03/31/17 23:26; Start 02/23/17 at 11:15 Risperidone (RisperDAL) 0.375 mg TID@0900,1300,1700 PO Last administered on 16:26; Start 02/25/17 at 09:00; Stop 02/26/17 at 18:57; Status DC Carbamazepine (TEGretol) 200 mg QHS PO Last administered on 02/27/17 19:14; Start 02/24/17 at 21:00; Stop 02/28/17 at 18:19; Status DC Enoxaparin Sodium (Lovenox) 40 mg Q24H SQ Last administered on 03/11/17 11:55 ; Start 02/25/17 at 14:00; Stop 03/12/17 at 10:01; Status DC Cefpodoxime Proxetil (Vantin) 100 mg BID PO Last administered on 03/06/17 08: 37; Start 02/25/17 at 21:00; Stop 03/06/17 at 12:55; Status DC Risperidone (RisperDAL) 0.5 mg TID@0900,1300,1700 PO Last administered on 03/14 12:40; Start 02/27/17 at 09:00; Stop 03/14/17 at 15:48; Status DC Carbamazepine (TEGretol) 150 mg BID PO Last administered on 03/03/17 08:14; Start 02/28/17 at 21:00; Stop 03/03/17 at 18:20; Status DC Trazodone HCl (Desyrel) 25 mg TID@0900,1300,1700 PO Last administered on 17:34; Start 03/01/17 at 09:00; Stop 03/09/17 at 18:31; Status DC Fluvoxamine Maleate (Luvox) 150 mg HS PO Last administered on 03/20/17 19:25 ; Start 02/28/17 at 21:00; Stop 03/21/17 at 18:47; Status DC [place] Carbonate 300 mg QHS PO Last administered on 03/12/17 19:20; Start 03/02/17 at 21:00; Stop 03/13/17 at 14:53; Status DC Influenza Virus Vaccine Quadrival (Fluarix Quad 1847-4505 Syringe) 0.5 ml ONCE ONCE VAX IM Last administered on 03/04/17 09:57; Start 03/04/17 at 09:00; Stop 03/04/17 at 09:01; Status DC [place] Carbonate 150 mg DAILY PO Last administered on 03/13/17 09:52; Start 03/06/17 at 09:00; Stop 03/13/17 at 14:53; Status DC [place] Carbonate 75 mg DAILY PO Last administered on 03/13/17 09:51; Start 03/09/17 at 09:00; Stop 03/13/17 at 14:53; Status DC Trazodone HCl (Desyrel) 25 mg BID@1300,1700 PO Last administered on 03/10/17 17:19; Start 03/10/17 at 13:00; Stop 03/10/17 at 19:29; Status DC Trazodone HCl (Desyrel) 50 mg DAILY PO ; Start 03/10/17 at 09:00; Stop at 19:29; Status DC Magnesium Oxide (Magnesium Oxide) 400 mg DAILY PO Last administered on 07:52; Start 03/11/17 at 09:00 Trazodone HCl (Desyrel) 50 mg BID94 PO Last administered on 03/20/17 16:28; Start 03/11/17 at 09:00; Stop 03/20/17 at 18:59; Status DC Trazodone HCl (Desyrel) 25 mg DAILYWLUN PO Last administered on 03/20/17 13: 37; Start 03/11/17 at 12:00; Stop 03/20/17 at 18:59; Status DC Hydroxyzine Pamoate (Vistaril) 25 mg PRN Q6HRS PRN PO AGITATION Last administered on 03/31/17 21:44; Start 03/12/17 at 10:00 Enoxaparin Sodium (Lovenox) 40 mg Q24H SQ Last administered on 04/01/17 07:53 ; Start 03/13/17 at 09:00 [place] Carbonate 150 mg BID PO Last administered on 03/24/17 09:05; Start at 21:00; Stop 03/24/17 at 18:31; Status DC Mirtazapine (Remeron) 22.5 mg QHS PO Last administered on 04/01/17 17:10; Start 03/14/17 at 21:00 Risperidone (RisperDAL) 0.5 mg BID PO Last administered on 04/01/17 17:10; Start 03/14/17 at 21:00 Amoxicillin (Amoxil) 500 mg TID PO Last administered on 03/28/17 14:16; Start 03/17/17 at 19:30; Stop 03/28/17 at 17:05; Status DC Lactobacillus Acidophilus (Bacid, Kelly-Bid) 1 tab BID PO Last administered on 04/01/17 17:10; Start 03/17/17 at 19:30 Trazodone HCl (Desyrel) 50 mg TID@0900,1400,1600 PO Last administered on 16:04; Start 03/21/17 at 09:00; Stop 03/21/17 at 18:47; Status DC Fluvoxamine Maleate (Luvox) 175 mg HS PO Last administered on 03/23/17 19:27; Start 03/21/17 at 21:00; Stop 03/24/17 at 18:31; Status DC Trazodone HCl (Desyrel) 75 mg TID@0900,1600 PO Last administered on 03/23/17 17:10; Start 03/22/17 at 09:00; Stop 03/23/17 at 18:52; Status DC Trazodone HCl (Desyrel) 50 mg 1400 PO Last administered on 03/23/17 14:08; Start 03/22/17 at 14:00; Stop 03/23/17 at 18:52; Status DC Trazodone HCl (Desyrel) 100 mg TID@0900,1600 PO Last administered on 17:07; Start 03/24/17 at 09:00 Trazodone HCl (Desyrel) 75 mg DAILY@1400 PO Last administered on 04/01/17 13: 32; Start 03/24/17 at 14:00 Fluvoxamine Maleate (Luvox) 200 mg HS PO Last administered on 04/01/17 17:06 ; Start 03/24/17 at 21:00 Divalproex Sodium (Depakote Sprinkles) 250 mg BID PO Last administered on 09:35; Start 03/25/17 at 21:00; Stop 03/29/17 at 17:21; Status DC Divalproex Sodium (Depakote Sprinkles) 375 mg BID PO Last administered on 04/01 17:07; Start 03/29/17 at 21:00; Stop 04/01/17 at 18:31; Status DC Divalproex Sodium (Depakote Sprinkles) 500 mg BID PO ; Start 04/02/17 at 09:00 Active Scripts Active Reported Atorvastatin Calcium 40 Mg Tablet 40 Mg PO QHS Naproxen 500 Mg Tablet 500 Mg PO BID Lorazepam 0.5 Mg Tablet 0.5 Mg PO PRN Q4HRS PRN Seroquel (Quetiapine Fumarate) 25 Mg Tablet 25 Mg PO BID Zoloft (Sertraline Hcl) 100 Mg Tablet 100 Mg PO DAILY Levothyroxine Sodium 112 Mcg Tablet 112 Mcg PO DAILYAC Olanzapine 5 Mg Tablet 5 Mg PO HS Alprazolam 0.5 Mg Tablet 0.5 Mg PO BID I have reviewed the current psychotropics carefully including drug interactions. Risk benefit ratio favors no change other than as noted in my dictated progress note. Diagnosis: Problems: (1) Anxiety disorder (2) Bipolar 1 disorder, mixed, moderate (3) Dementia in Alzheimer's disease with delusions (4) Dementia in Alzheimer's disease with depression (5) Dementia, vascular, with depression (6) Dementia, vascular, with delusions (7) Impulse control disorder ELEANOR BILLS MD Apr 01, 2017 20:02
[2017-04-01] MEDS: hydrOXYzine PAMOATE 25 MG CAPSULE PO PRN (20:11)
[2017-04-01] MEDS: traZODone 100 MG TABLET. PO PRN (20:11)
[2017-04-02] MEDS: LEVOTHYROXINE 112 MCG TABLET PO SCH (06:33)
[2017-04-02 06:42] VITALS: BP 153/79
[2017-04-02] MEDS: traZODone 50 MG TABLET. PO SCH ×3 (07:37→18:13)
[2017-04-02] MEDS: LACTOBACILLUS ACIDOPH & BULGAR 1 TABLET. PO SCH (07:37)
[2017-04-02] MEDS: DOCUSATE SODIUM 100 MG CAPSULE PO SCH ×2 (07:38→18:13)
[2017-04-02] MEDS: NAPROXEN 500 MG TABLET PO SCH ×2 (07:38→18:13)
[2017-04-02] MEDS: POLYETHYLENE GLYCOL 3350 17 GM PACKET. PO SCH (07:38)
[2017-04-02] MEDS: DIVALPROEX 125 MG CAP.SPRINK PO SCH ×2 (07:38→18:13)
[2017-04-02] MEDS: risperiDONE 0.5 MG TABLET. PO SCH ×2 (07:38→18:13)
[2017-04-02] MEDS: MAGNESIUM OXIDE 400 MG TABLET PO SCH (07:38)
[2017-04-02] MEDS: ENOXAPARIN 40 MG/0.4 ML DISP.SYRIN. SQ SCH (07:39)
--- NOTE | 2017-04-02 07:41 | PN ---
DATE: 03/31/2017 This is a late entry for date of service 03/31/2017 and covers elements not covered in my initial note of 03/31/2017. I met with that the patient in her room the evening of 03/31/2017. She is continuously yelling, labile in her mood. REVIEW OF SYSTEMS: Ambulation impaired, in a Broda chair. No CV, , pulmonary, eye, ENT system symptoms on review. Reliability poor. MENTAL STATUS EXAM: Oriented to herself. Insight, judgment, recent and remote memory, attention, concentration, fund of knowledge poor, consistent with her diagnosis mentioned in my initial note. PLAN: Continue current psychotropics, reviewed drug interactions, risks/benefit ratio favors no further change. MAN Aden BILLS MD DR: [email or web address]/meli JOB#: [id number] / [id number]
[2017-04-02 16:11] VITALS: BP 144/82
[2017-04-02] MEDS: MIRTAZAPINE 15 MG TABLET PO SCH (18:13)
[2017-04-02] MEDS: ATORVASTATIN CALCIUM 20 MG TABLET PO SCH (18:13)
[2017-04-02] MEDS: hydrOXYzine PAMOATE 25 MG CAPSULE PO PRN (19:37)
[2017-04-02] MEDS: cloZAPine 25 MG TABLET PO SCH (19:37)
[2017-04-02] MEDS: traZODone 100 MG TABLET. PO PRN (19:37)
--- NOTE | 2017-04-02 20:10 | PDOC ---
Exam Note: Jeanmarie Note: Please also refer to the separate dictated note~for this date of service dictated separately.~Patient seen individually. Discussed the patient with Nursing staff reviewed the chart.~Reviewed interim history and current functioning. Reviewed vital signs,~Labs/ Radiology~and current medications noted below. Continue current treatment with the changes noted in the dictated addendum note Assessment: Vital Signs: Vital Signs Date Time Temp Pulse Resp B/P (MAP) Pulse Ox O2 Delivery O2 Flow Rate FiO2 04/02/17 16:11 99.0 78 18 144/82 (102) 96 Room Air I&O Intake and Output 04/03/17 07:00 Intake Total 600 ml Balance 600 ml Intake Oral 600 ml # Bowel Movements 1 Current Medications: Meds: Current Medications Lorazepam (Ativan) 0.5 mg 1X ONCE PO Last administered on 02/01/17 19:14; Start 02/01/17 at 19:15; Stop 02/01/17 at 19:16; Status DC Ceftriaxone Sodium (Rocephin Im) 1 gm 1X ONCE IM Last administered on 20:45; Start 02/01/17 at 20:30; Stop 02/01/17 at 20:31; Status DC Acetaminophen (Tylenol) 650 mg PRN Q6HRS PRN PO MILD PAIN / TEMP Last administered on 03/08/17 09:20; Start 02/01/17 at 23:15 Multi-Ingredient Ointment (Analgesic [place]) 1 rosita PRN QID PRN TP MUSCLE PAIN; Start 02/01/17 at 23:15 Al Hydroxide/Mg Hydroxide (Mylanta Plus Xs) 15 ml PRN AFTMEALHC PRN PO DYSPEPSIA; Start 02/01/17 at 23:15 Magnesium Hydroxide (Milk Of Magnesia) 2,400 mg PRN QHS PRN PO CONSTIPATION Last administered on 02/13/17 02:05; Start 02/01/17 at 23:15 Olanzapine (ZyPREXA) 5 mg HS PO Last administered on 02/13/17 19:31; Start at 21:00; Stop 02/14/17 at 18:51; Status DC Quetiapine Fumarate (SEROquel) 25 mg BID PO Last administered on 02/08/17 08: 42; Start 02/02/17 at 09:00; Stop 02/08/17 at 19:16; Status DC Sertraline HCl (Zoloft) 100 mg DAILY PO Last administered on 02/06/17 08:01; Start 02/02/17 at 09:00; Stop 02/06/17 at 18:56; Status DC Olanzapine (ZyPREXA) 5 mg 1X ONCE PO Last administered on 02/02/17 00:27; Start 02/02/17 at 00:30; Stop 02/02/17 at 00:31; Status DC Alprazolam (Xanax) 0.5 mg BID PO Last administered on 02/13/17 11:42; Start at 09:00; Stop 02/13/17 at 18:35; Status DC Lorazepam (Ativan) 0.5 mg PRN Q4HRS PRN PO ANXIETY / AGITATION Last administered on 02/02/17 14:57; Start 02/02/17 at 00:15; Stop 02/02/17 at 15:59 ; Status DC Levothyroxine Sodium (Synthroid) 112 mcg DAILY06 PO Last administered on 06:33; Start 02/02/17 at 10:00 Naproxen (Naprosyn) 500 mg BID PO Last administered on 04/02/17 18:13; Start 02/02/17 at 09:00 Atorvastatin Calcium (Lipitor) 40 mg QHS PO Last administered on 04/02/17 18: 13; Start 02/02/17 at 21:00 Mirtazapine (Remeron) 7.5 mg QHS PO Last administered on 02/20/17 23:08; Start 02/02/17 at 21:00; Stop 02/21/17 at 19:38; Status DC Olanzapine (ZyPREXA ZYDIS) 2.5 mg PRN Q2HR PRN PO PSYCHOSIS Last administered on 03/30/17 02:23; Start 02/02/17 at 15:45 Alprazolam (Xanax) 0.25 mg PRN Q2HR PRN PO ANXIETY / AGITATION Last administered on 02/13/17 16:33; Start 02/02/17 at 15:45; Stop 02/13/17 at 18:35 ; Status DC Docusate Sodium (Colace) 100 mg BID PO Last administered on 04/02/17 18:13; Start 02/02/17 at 21:00 Polyethylene Glycol (miraLAX) 17 gm DAILY PO Last administered on 04/02/17 07 :38; Start 02/03/17 at 09:00 Vitamin D (Vitamin D3) 50,000 unit WEEKLY PO Last administered on 03/31/17 08 :38; Start 02/10/17 at 09:00 Divalproex Sodium (Depakote Sprinkles) 125 mg TID@0900,1300,1700 PO Last administered on 02/06/17 16:46; Start 02/04/17 at 09:00; Stop 02/06/17 at 18:56 ; Status DC Divalproex Sodium (Depakote Sprinkles) 250 mg TID@0900,1300,1700 PO Last administered on 02/09/17 09:13; Start 02/07/17 at 09:00; Stop 02/09/17 at 13:03 ; Status DC Fluvoxamine Maleate (Luvox) 50 mg HS PO Last administered on 02/13/17 19:32; Start 02/06/17 at 21:00; Stop 02/14/17 at 18:51; Status DC Quetiapine Fumarate (SEROquel) 25 mg TID PO Last administered on 02/09/17 09: 16; Start 02/09/17 at 09:00; Stop 02/09/17 at 13:30; Status DC Divalproex Sodium (Depakote Sprinkles) 375 mg TID@0900,1300,1700 PO Last administered on 02/16/17 08:01; Start 02/09/17 at 13:00; Stop 02/16/17 at 19:13 ; Status DC Quetiapine Fumarate (SEROquel) 37.5 mg TID PO Last administered on 02/12/17 12 :55; Start 02/09/17 at 14:00; Stop 02/12/17 at 17:56; Status DC Olanzapine (ZyPREXA) 5 mg 1X ONCE PO Last administered on 02/12/17 11:57; Start 02/12/17 at 12:00; Stop 02/12/17 at 12:01; Status DC Quetiapine Fumarate (SEROquel) 50 mg TID PO Last administered on 02/19/17 13: 43; Start 02/12/17 at 21:00; Stop 02/19/17 at 18:29; Status DC Lorazepam (Ativan) 0.5 mg PRN Q2HR PRN PO ANXIETY / AGITATION Last administered on 03/31/17 23:26; Start 02/13/17 at 18:45 Lorazepam (Ativan) 0.5 mg BID PO Last administered on 02/16/17 08:04; Start at 21:00; Stop 02/17/17 at 17:37; Status DC Fluvoxamine Maleate (Luvox) 75 mg HS PO Last administered on 02/15/17 19:11; Start 02/14/17 at 21:00; Stop 02/16/17 at 22:01; Status DC Trazodone HCl (Desyrel) 12.5 mg TID PO Last administered on 02/14/17 19:39; Start 02/14/17 at 19:00; Stop 02/14/17 at 21:12; Status DC Trazodone HCl (Desyrel) 12.5 mg TIDWMEALS PO Last administered on 02/19/17 07: 57; Start 02/15/17 at 08:00; Stop 02/19/17 at 09:00; Status DC Fluvoxamine Maleate (Luvox) 100 mg HS PO Last administered on 02/27/17 19:14; Start 02/16/17 at 21:00; Stop 02/28/17 at 18:33; Status DC Lorazepam (Ativan) 0.25 mg BID PO Last administered on 02/18/17 20:06; Start 02/17/17 at 21:00; Stop 02/18/17 at 22:00; Status DC Trazodone HCl (Desyrel) 12.5 mg QID PO Last administered on 02/28/17 16:43; Start 02/19/17 at 09:00; Stop 02/28/17 at 18:19; Status DC Risperidone (RisperDAL) 0.125 mg TID@0900,1300,1700 PO Last administered on 17:31; Start 02/20/17 at 09:00; Stop 02/20/17 at 22:50; Status DC Mirtazapine (Remeron) 15 mg QHS PO Last administered on 03/13/17 20:15; Start 02/21/17 at 21:00; Stop 03/14/17 at 15:48; Status DC Trazodone HCl (Desyrel) 50 mg PRN QHS PRN PO INSOMNIA, SEPTEMBER REPEAT X1 Last administered on 02/23/17 00:34; Start 02/20/17 at 22:45; Stop 02/23/17 at 10:59 ; Status DC Risperidone (RisperDAL) 0.25 mg TID@0900,1300,1700 PO Last administered on 02/24 17:20; Start 02/21/17 at 09:00; Stop 02/24/17 at 19:06; Status DC Trazodone HCl (Desyrel) 100 mg PRN QHS PRN PO INSOMNIA, SEPTEMBER REPEAT X1 Last administered on 04/02/17 19:37; Start 02/23/17 at 11:15 Risperidone (RisperDAL) 0.375 mg TID@0900,1300,1700 PO Last administered on 16:26; Start 02/25/17 at 09:00; Stop 02/26/17 at 18:57; Status DC Carbamazepine (TEGretol) 200 mg QHS PO Last administered on 02/27/17 19:14; Start 02/24/17 at 21:00; Stop 02/28/17 at 18:19; Status DC Enoxaparin Sodium (Lovenox) 40 mg Q24H SQ Last administered on 03/11/17 11:55 ; Start 02/25/17 at 14:00; Stop 03/12/17 at 10:01; Status DC Cefpodoxime Proxetil (Vantin) 100 mg BID PO Last administered on 03/06/17 08: 37; Start 02/25/17 at 21:00; Stop 03/06/17 at 12:55; Status DC Risperidone (RisperDAL) 0.5 mg TID@0900,1300,1700 PO Last administered on 03/14 12:40; Start 02/27/17 at 09:00; Stop 03/14/17 at 15:48; Status DC Carbamazepine (TEGretol) 150 mg BID PO Last administered on 03/03/17 08:14; Start 02/28/17 at 21:00; Stop 03/03/17 at 18:20; Status DC Trazodone HCl (Desyrel) 25 mg TID@0900,1300,1700 PO Last administered on 17:34; Start 03/01/17 at 09:00; Stop 03/09/17 at 18:31; Status DC Fluvoxamine Maleate (Luvox) 150 mg HS PO Last administered on 03/20/17 19:25 ; Start 02/28/17 at 21:00; Stop 03/21/17 at 18:47; Status DC [place] Carbonate 300 mg QHS PO Last administered on 03/12/17 19:20; Start 03/02/17 at 21:00; Stop 03/13/17 at 14:53; Status DC Influenza Virus Vaccine Quadrival (Fluarix Quad 1085-4146 Syringe) 0.5 ml ONCE ONCE VAX IM Last administered on 03/04/17 09:57; Start 03/04/17 at 09:00; Stop 03/04/17 at 09:01; Status DC [place] Carbonate 150 mg DAILY PO Last administered on 03/13/17 09:52; Start 03/06/17 at 09:00; Stop 03/13/17 at 14:53; Status DC [place] Carbonate 75 mg DAILY PO Last administered on 03/13/17 09:51; Start 03/09/17 at 09:00; Stop 03/13/17 at 14:53; Status DC Trazodone HCl (Desyrel) 25 mg BID@1300,1700 PO Last administered on 03/10/17 17:19; Start 03/10/17 at 13:00; Stop 03/10/17 at 19:29; Status DC Trazodone HCl (Desyrel) 50 mg DAILY PO ; Start 03/10/17 at 09:00; Stop at 19:29; Status DC Magnesium Oxide (Magnesium Oxide) 400 mg DAILY PO Last administered on 07:38; Start 03/11/17 at 09:00 Trazodone HCl (Desyrel) 50 mg BID94 PO Last administered on 03/20/17 16:28; Start 03/11/17 at 09:00; Stop 03/20/17 at 18:59; Status DC Trazodone HCl (Desyrel) 25 mg DAILYWLUN PO Last administered on 03/20/17 13: 37; Start 03/11/17 at 12:00; Stop 03/20/17 at 18:59; Status DC Hydroxyzine Pamoate (Vistaril) 25 mg PRN Q6HRS PRN PO AGITATION Last administered on 04/02/17 19:37; Start 03/12/17 at 10:00 Enoxaparin Sodium (Lovenox) 40 mg Q24H SQ Last administered on 04/02/17 07:39 ; Start 03/13/17 at 09:00 [place] Carbonate 150 mg BID PO Last administered on 03/24/17 09:05; Start at 21:00; Stop 03/24/17 at 18:31; Status DC Mirtazapine (Remeron) 22.5 mg QHS PO Last administered on 04/02/17 18:13; Start 03/14/17 at 21:00 Risperidone (RisperDAL) 0.5 mg BID PO Last administered on 04/02/17 18:13; Start 03/14/17 at 21:00 Amoxicillin (Amoxil) 500 mg TID PO Last administered on 03/28/17 14:16; Start 03/17/17 at 19:30; Stop 03/28/17 at 17:05; Status DC Lactobacillus Acidophilus (Bacid, Kelly-Bid) 1 tab BID PO Last administered on 04/02/17 07:37; Start 03/17/17 at 19:30 Trazodone HCl (Desyrel) 50 mg TID@0900,1400,1600 PO Last administered on 16:04; Start 03/21/17 at 09:00; Stop 03/21/17 at 18:47; Status DC Fluvoxamine Maleate (Luvox) 175 mg HS PO Last administered on 03/23/17 19:27; Start 03/21/17 at 21:00; Stop 03/24/17 at 18:31; Status DC Trazodone HCl (Desyrel) 75 mg TID@0900,1600 PO Last administered on 03/23/17 17:10; Start 03/22/17 at 09:00; Stop 03/23/17 at 18:52; Status DC Trazodone HCl (Desyrel) 50 mg 1400 PO Last administered on 03/23/17 14:08; Start 03/22/17 at 14:00; Stop 03/23/17 at 18:52; Status DC Trazodone HCl (Desyrel) 100 mg TID@0900,1600 PO Last administered on 18:13; Start 03/24/17 at 09:00 Trazodone HCl (Desyrel) 75 mg DAILY@1400 PO Last administered on 04/02/17 14: 00; Start 03/24/17 at 14:00 Fluvoxamine Maleate (Luvox) 200 mg HS PO Last administered on 04/02/17 18:12 ; Start 03/24/17 at 21:00 Divalproex Sodium (Depakote Sprinkles) 250 mg BID PO Last administered on 09:35; Start 03/25/17 at 21:00; Stop 03/29/17 at 17:21; Status DC Divalproex Sodium (Depakote Sprinkles) 375 mg BID PO Last administered on 04/01 17:07; Start 03/29/17 at 21:00; Stop 04/01/17 at 18:31; Status DC Divalproex Sodium (Depakote Sprinkles) 500 mg BID PO Last administered on 04/02 18:13; Start 04/02/17 at 09:00 Clozapine (Clozaril) 25 mg HS PO Last administered on 04/02/17 19:37; Start 04/02/17 at 21:00 Active Scripts Active Reported Atorvastatin Calcium 40 Mg Tablet 40 Mg PO QHS Naproxen 500 Mg Tablet 500 Mg PO BID Lorazepam 0.5 Mg Tablet 0.5 Mg PO PRN Q4HRS PRN Seroquel (Quetiapine Fumarate) 25 Mg Tablet 25 Mg PO BID Zoloft (Sertraline Hcl) 100 Mg Tablet 100 Mg PO DAILY Levothyroxine Sodium 112 Mcg Tablet 112 Mcg PO DAILYAC Olanzapine 5 Mg Tablet 5 Mg PO HS Alprazolam 0.5 Mg Tablet 0.5 Mg PO BID I have reviewed the current psychotropics carefully including drug interactions. Risk benefit ratio favors no change other than as noted in my dictated progress note. Diagnosis: Problems: (1) Anxiety disorder (2) Bipolar 1 disorder, mixed, moderate (3) Dementia in Alzheimer's disease with delusions (4) Dementia in Alzheimer's disease with depression (5) Dementia, vascular, with depression (6) Dementia, vascular, with delusions (7) Impulse control disorder ELEANOR BILLS MD Apr 02, 2017 20:10
--- NOTE | 2017-04-03 04:07 | PN ---
DATE: PSYCHIATRIC PROGRESS NOTE DATE OF SERVICE: 04/01/2017 This late entry 04/01/2017 covers elements not covered in my initial note 04/01/2017. SUBJECTIVE: I met with the patient DICTATION ENDS HERE. MAN Aden BILLS MD DR: JAIME/meli JOB#: [id number] / [id number]
[2017-04-03 06:04] VITALS: BP 111/62
[2017-04-03] MEDS: LEVOTHYROXINE 112 MCG TABLET PO SCH (06:22)
[2017-04-03] MEDS: LACTOBACILLUS ACIDOPH & BULGAR 1 TABLET. PO SCH ×2 (09:27→19:29)
[2017-04-03] MEDS: NAPROXEN 500 MG TABLET PO SCH ×2 (09:27→19:29)
[2017-04-03] MEDS: risperiDONE 0.5 MG TABLET. PO SCH ×2 (09:28→19:29)
[2017-04-03] MEDS: DOCUSATE SODIUM 100 MG CAPSULE PO SCH ×2 (09:28→19:29)
[2017-04-03] MEDS: MAGNESIUM OXIDE 400 MG TABLET PO SCH (09:28)
[2017-04-03] MEDS: DIVALPROEX 125 MG CAP.SPRINK PO SCH ×2 (09:28→19:29)
[2017-04-03] MEDS: traZODone 50 MG TABLET. PO SCH ×3 (09:28→16:09)
[2017-04-03] MEDS: ENOXAPARIN 40 MG/0.4 ML DISP.SYRIN. SQ SCH (09:28)
[2017-04-03] MEDS: POLYETHYLENE GLYCOL 3350 17 GM PACKET. PO SCH (09:29)
[2017-04-03 16:22] VITALS: BP 134/72
[2017-04-03] MEDS: cloZAPine 25 MG TABLET PO SCH (19:29)
[2017-04-03] MEDS: ATORVASTATIN CALCIUM 20 MG TABLET PO SCH (19:29)
[2017-04-03] MEDS: MIRTAZAPINE 15 MG TABLET PO SCH (19:29)
[2017-04-03] MEDS: traZODone 100 MG TABLET. PO PRN ×2 (19:30→22:37)
--- NOTE | 2017-04-03 20:19 | PDOC ---
Exam Note: Jeanmarie Note: Please also refer to the separate dictated note~for this date of service dictated separately.~Patient seen individually. Discussed the patient with Nursing staff reviewed the chart.~Reviewed interim history and current functioning. Reviewed vital signs,~Labs/ Radiology~and current medications noted below. Continue current treatment with the changes noted in the dictated addendum note Assessment: Vital Signs: Vital Signs Date Time Temp Pulse Resp B/P (MAP) Pulse Ox O2 Delivery O2 Flow Rate FiO2 04/03/17 16:22 97.8 77 20 134/72 (92) 96 04/02/17 16:11 Room Air I&O Intake and Output 04/03/17 07:00 Intake Total 600 ml Balance 600 ml Intake Oral 600 ml # Bowel Movements 1 Current Medications: Meds: Current Medications Lorazepam (Ativan) 0.5 mg 1X ONCE PO Last administered on 02/01/17 19:14; Start 02/01/17 at 19:15; Stop 02/01/17 at 19:16; Status DC Ceftriaxone Sodium (Rocephin Im) 1 gm 1X ONCE IM Last administered on 20:45; Start 02/01/17 at 20:30; Stop 02/01/17 at 20:31; Status DC Acetaminophen (Tylenol) 650 mg PRN Q6HRS PRN PO MILD PAIN / TEMP Last administered on 03/08/17 09:20; Start 02/01/17 at 23:15 Multi-Ingredient Ointment (Analgesic [place]) 1 rosita PRN QID PRN TP MUSCLE PAIN; Start 02/01/17 at 23:15 Al Hydroxide/Mg Hydroxide (Mylanta Plus Xs) 15 ml PRN AFTMEALHC PRN PO DYSPEPSIA; Start 02/01/17 at 23:15 Magnesium Hydroxide (Milk Of Magnesia) 2,400 mg PRN QHS PRN PO CONSTIPATION Last administered on 02/13/17 02:05; Start 02/01/17 at 23:15 Olanzapine (ZyPREXA) 5 mg HS PO Last administered on 02/13/17 19:31; Start at 21:00; Stop 02/14/17 at 18:51; Status DC Quetiapine Fumarate (SEROquel) 25 mg BID PO Last administered on 02/08/17 08: 42; Start 02/02/17 at 09:00; Stop 02/08/17 at 19:16; Status DC Sertraline HCl (Zoloft) 100 mg DAILY PO Last administered on 02/06/17 08:01; Start 02/02/17 at 09:00; Stop 02/06/17 at 18:56; Status DC Olanzapine (ZyPREXA) 5 mg 1X ONCE PO Last administered on 02/02/17 00:27; Start 02/02/17 at 00:30; Stop 02/02/17 at 00:31; Status DC Alprazolam (Xanax) 0.5 mg BID PO Last administered on 02/13/17 11:42; Start at 09:00; Stop 02/13/17 at 18:35; Status DC Lorazepam (Ativan) 0.5 mg PRN Q4HRS PRN PO ANXIETY / AGITATION Last administered on 02/02/17 14:57; Start 02/02/17 at 00:15; Stop 02/02/17 at 15:59 ; Status DC Levothyroxine Sodium (Synthroid) 112 mcg DAILY06 PO Last administered on 06:22; Start 02/02/17 at 10:00 Naproxen (Naprosyn) 500 mg BID PO Last administered on 04/03/17 19:29; Start 02/02/17 at 09:00 Atorvastatin Calcium (Lipitor) 40 mg QHS PO Last administered on 04/03/17 19: 29; Start 02/02/17 at 21:00 Mirtazapine (Remeron) 7.5 mg QHS PO Last administered on 02/20/17 23:08; Start 02/02/17 at 21:00; Stop 02/21/17 at 19:38; Status DC Olanzapine (ZyPREXA ZYDIS) 2.5 mg PRN Q2HR PRN PO PSYCHOSIS Last administered on 03/30/17 02:23; Start 02/02/17 at 15:45 Alprazolam (Xanax) 0.25 mg PRN Q2HR PRN PO ANXIETY / AGITATION Last administered on 02/13/17 16:33; Start 02/02/17 at 15:45; Stop 02/13/17 at 18:35 ; Status DC Docusate Sodium (Colace) 100 mg BID PO Last administered on 04/03/17 19:29; Start 02/02/17 at 21:00 Polyethylene Glycol (miraLAX) 17 gm DAILY PO Last administered on 04/03/17 09 :29; Start 02/03/17 at 09:00 Vitamin D (Vitamin D3) 50,000 unit WEEKLY PO Last administered on 03/31/17 08 :38; Start 02/10/17 at 09:00 Divalproex Sodium (Depakote Sprinkles) 125 mg TID@0900,1300,1700 PO Last administered on 02/06/17 16:46; Start 02/04/17 at 09:00; Stop 02/06/17 at 18:56 ; Status DC Divalproex Sodium (Depakote Sprinkles) 250 mg TID@0900,1300,1700 PO Last administered on 02/09/17 09:13; Start 02/07/17 at 09:00; Stop 02/09/17 at 13:03 ; Status DC Fluvoxamine Maleate (Luvox) 50 mg HS PO Last administered on 02/13/17 19:32; Start 02/06/17 at 21:00; Stop 02/14/17 at 18:51; Status DC Quetiapine Fumarate (SEROquel) 25 mg TID PO Last administered on 02/09/17 09: 16; Start 02/09/17 at 09:00; Stop 02/09/17 at 13:30; Status DC Divalproex Sodium (Depakote Sprinkles) 375 mg TID@0900,1300,1700 PO Last administered on 02/16/17 08:01; Start 02/09/17 at 13:00; Stop 02/16/17 at 19:13 ; Status DC Quetiapine Fumarate (SEROquel) 37.5 mg TID PO Last administered on 02/12/17 12 :55; Start 02/09/17 at 14:00; Stop 02/12/17 at 17:56; Status DC Olanzapine (ZyPREXA) 5 mg 1X ONCE PO Last administered on 02/12/17 11:57; Start 02/12/17 at 12:00; Stop 02/12/17 at 12:01; Status DC Quetiapine Fumarate (SEROquel) 50 mg TID PO Last administered on 02/19/17 13: 43; Start 02/12/17 at 21:00; Stop 02/19/17 at 18:29; Status DC Lorazepam (Ativan) 0.5 mg PRN Q2HR PRN PO ANXIETY / AGITATION Last administered on 03/31/17 23:26; Start 02/13/17 at 18:45 Lorazepam (Ativan) 0.5 mg BID PO Last administered on 02/16/17 08:04; Start at 21:00; Stop 02/17/17 at 17:37; Status DC Fluvoxamine Maleate (Luvox) 75 mg HS PO Last administered on 02/15/17 19:11; Start 02/14/17 at 21:00; Stop 02/16/17 at 22:01; Status DC Trazodone HCl (Desyrel) 12.5 mg TID PO Last administered on 02/14/17 19:39; Start 02/14/17 at 19:00; Stop 02/14/17 at 21:12; Status DC Trazodone HCl (Desyrel) 12.5 mg TIDWMEALS PO Last administered on 02/19/17 07: 57; Start 02/15/17 at 08:00; Stop 02/19/17 at 09:00; Status DC Fluvoxamine Maleate (Luvox) 100 mg HS PO Last administered on 02/27/17 19:14; Start 02/16/17 at 21:00; Stop 02/28/17 at 18:33; Status DC Lorazepam (Ativan) 0.25 mg BID PO Last administered on 02/18/17 20:06; Start 02/17/17 at 21:00; Stop 02/18/17 at 22:00; Status DC Trazodone HCl (Desyrel) 12.5 mg QID PO Last administered on 02/28/17 16:43; Start 02/19/17 at 09:00; Stop 02/28/17 at 18:19; Status DC Risperidone (RisperDAL) 0.125 mg TID@0900,1300,1700 PO Last administered on 17:31; Start 02/20/17 at 09:00; Stop 02/20/17 at 22:50; Status DC Mirtazapine (Remeron) 15 mg QHS PO Last administered on 03/13/17 20:15; Start 02/21/17 at 21:00; Stop 03/14/17 at 15:48; Status DC Trazodone HCl (Desyrel) 50 mg PRN QHS PRN PO INSOMNIA, MAY REPEAT X1 Last administered on 02/23/17 00:34; Start 02/20/17 at 22:45; Stop 02/23/17 at 10:59 ; Status DC Risperidone (RisperDAL) 0.25 mg TID@0900,1300,1700 PO Last administered on 02/24 17:20; Start 02/21/17 at 09:00; Stop 02/24/17 at 19:06; Status DC Trazodone HCl (Desyrel) 100 mg PRN QHS PRN PO INSOMNIA, SEPTEMBER REPEAT X1 Last administered on 04/03/17 19:30; Start 02/23/17 at 11:15 Risperidone (RisperDAL) 0.375 mg TID@0900,1300,1700 PO Last administered on 16:26; Start 02/25/17 at 09:00; Stop 02/26/17 at 18:57; Status DC Carbamazepine (TEGretol) 200 mg QHS PO Last administered on 02/27/17 19:14; Start 02/24/17 at 21:00; Stop 02/28/17 at 18:19; Status DC Enoxaparin Sodium (Lovenox) 40 mg Q24H SQ Last administered on 03/11/17 11:55 ; Start 02/25/17 at 14:00; Stop 03/12/17 at 10:01; Status DC Cefpodoxime Proxetil (Vantin) 100 mg BID PO Last administered on 03/06/17 08: 37; Start 02/25/17 at 21:00; Stop 03/06/17 at 12:55; Status DC Risperidone (RisperDAL) 0.5 mg TID@0900,1300,1700 PO Last administered on 03/14 12:40; Start 02/27/17 at 09:00; Stop 03/14/17 at 15:48; Status DC Carbamazepine (TEGretol) 150 mg BID PO Last administered on 03/03/17 08:14; Start 02/28/17 at 21:00; Stop 03/03/17 at 18:20; Status DC Trazodone HCl (Desyrel) 25 mg TID@0900,1300,1700 PO Last administered on 17:34; Start 03/01/17 at 09:00; Stop 03/09/17 at 18:31; Status DC Fluvoxamine Maleate (Luvox) 150 mg HS PO Last administered on 03/20/17 19:25 ; Start 02/28/17 at 21:00; Stop 03/21/17 at 18:47; Status DC [place] Carbonate 300 mg QHS PO Last administered on 03/12/17 19:20; Start 03/02/17 at 21:00; Stop 03/13/17 at 14:53; Status DC Influenza Virus Vaccine Quadrival (Fluarix Quad [id number] Syringe) 0.5 ml ONCE ONCE VAX IM Last administered on 03/04/17 09:57; Start 03/04/17 at 09:00; Stop 03/04/17 at 09:01; Status DC [place] Carbonate 150 mg DAILY PO Last administered on 03/13/17 09:52; Start 03/06/17 at 09:00; Stop 03/13/17 at 14:53; Status DC [place] Carbonate 75 mg DAILY PO Last administered on 03/13/17 09:51; Start 03/09/17 at 09:00; Stop 03/13/17 at 14:53; Status DC Trazodone HCl (Desyrel) 25 mg BID@1300,1700 PO Last administered on 03/10/17 17:19; Start 03/10/17 at 13:00; Stop 03/10/17 at 19:29; Status DC Trazodone HCl (Desyrel) 50 mg DAILY PO ; Start 03/10/17 at 09:00; Stop at 19:29; Status DC Magnesium Oxide (Magnesium Oxide) 400 mg DAILY PO Last administered on 09:28; Start 03/11/17 at 09:00 Trazodone HCl (Desyrel) 50 mg BID94 PO Last administered on 03/20/17 16:28; Start 03/11/17 at 09:00; Stop 03/20/17 at 18:59; Status DC Trazodone HCl (Desyrel) 25 mg DAILYWLUN PO Last administered on 03/20/17 13: 37; Start 03/11/17 at 12:00; Stop 03/20/17 at 18:59; Status DC Hydroxyzine Pamoate (Vistaril) 25 mg PRN Q6HRS PRN PO AGITATION Last administered on 04/02/17 19:37; Start 03/12/17 at 10:00 Enoxaparin Sodium (Lovenox) 40 mg Q24H SQ Last administered on 04/03/17 09:28 ; Start 03/13/17 at 09:00 [place] Carbonate 150 mg BID PO Last administered on 03/24/17 09:05; Start at 21:00; Stop 03/24/17 at 18:31; Status DC Mirtazapine (Remeron) 22.5 mg QHS PO Last administered on 04/03/17 19:29; Start 03/14/17 at 21:00 Risperidone (RisperDAL) 0.5 mg BID PO Last administered on 04/03/17 19:29; Start 03/14/17 at 21:00 Amoxicillin (Amoxil) 500 mg TID PO Last administered on 03/28/17 14:16; Start 03/17/17 at 19:30; Stop 03/28/17 at 17:05; Status DC Lactobacillus Acidophilus (Bacid, Kelly-Bid) 1 tab BID PO Last administered on 04/03/17 19:29; Start 03/17/17 at 19:30 Trazodone HCl (Desyrel) 50 mg TID@0900,1400,1600 PO Last administered on 16:04; Start 03/21/17 at 09:00; Stop 03/21/17 at 18:47; Status DC Fluvoxamine Maleate (Luvox) 175 mg HS PO Last administered on 03/23/17 19:27; Start 03/21/17 at 21:00; Stop 03/24/17 at 18:31; Status DC Trazodone HCl (Desyrel) 75 mg TID@0900,1600 PO Last administered on 03/23/17 17:10; Start 03/22/17 at 09:00; Stop 03/23/17 at 18:52; Status DC Trazodone HCl (Desyrel) 50 mg 1400 PO Last administered on 03/23/17 14:08; Start 03/22/17 at 14:00; Stop 03/23/17 at 18:52; Status DC Trazodone HCl (Desyrel) 100 mg TID@0900,1600 PO Last administered on 16:09; Start 03/24/17 at 09:00 Trazodone HCl (Desyrel) 75 mg DAILY@1400 PO Last administered on 04/02/17 14: 00; Start 03/24/17 at 14:00 Fluvoxamine Maleate (Luvox) 200 mg HS PO Last administered on 04/03/17 19:29 ; Start 03/24/17 at 21:00 Divalproex Sodium (Depakote Sprinkles) 250 mg BID PO Last administered on 09:35; Start 03/25/17 at 21:00; Stop 03/29/17 at 17:21; Status DC Divalproex Sodium (Depakote Sprinkles) 375 mg BID PO Last administered on 04/01 17:07; Start 03/29/17 at 21:00; Stop 04/01/17 at 18:31; Status DC Divalproex Sodium (Depakote Sprinkles) 500 mg BID PO Last administered on 04/03 19:29; Start 04/02/17 at 09:00 Clozapine (Clozaril) 25 mg HS PO Last administered on 04/03/17 19:29; Start 04/02/17 at 21:00 Active Scripts Active Reported Atorvastatin Calcium 40 Mg Tablet 40 Mg PO QHS Naproxen 500 Mg Tablet 500 Mg PO BID Lorazepam 0.5 Mg Tablet 0.5 Mg PO PRN Q4HRS PRN Seroquel (Quetiapine Fumarate) 25 Mg Tablet 25 Mg PO BID Zoloft (Sertraline Hcl) 100 Mg Tablet 100 Mg PO DAILY Levothyroxine Sodium 112 Mcg Tablet 112 Mcg PO DAILYAC Olanzapine 5 Mg Tablet 5 Mg PO HS Alprazolam 0.5 Mg Tablet 0.5 Mg PO BID I have reviewed the current psychotropics carefully including drug interactions. Risk benefit ratio favors no change other than as noted in my dictated progress note. Diagnosis: Problems: (1) Anxiety disorder (2) Bipolar 1 disorder, mixed, moderate (3) Dementia in Alzheimer's disease with delusions (4) Dementia in Alzheimer's disease with depression (5) Dementia, vascular, with depression (6) Dementia, vascular, with delusions (7) Impulse control disorder ELEANOR BILLS MD Apr 03, 2017 20:19
[2017-04-03] MEDS: hydrOXYzine PAMOATE 25 MG CAPSULE PO PRN (20:46)
[2017-04-04] MEDS: LEVOTHYROXINE 112 MCG TABLET PO SCH (06:01)
[2017-04-04 06:09] VITALS: BP 111/66
[2017-04-04] MEDS: POLYETHYLENE GLYCOL 3350 17 GM PACKET. PO SCH (09:04)
[2017-04-04] MEDS: ENOXAPARIN 40 MG/0.4 ML DISP.SYRIN. SQ SCH (09:05)
[2017-04-04] MEDS: traZODone 50 MG TABLET. PO SCH ×3 (09:06→16:36)
[2017-04-04] MEDS: risperiDONE 0.5 MG TABLET. PO SCH ×2 (09:06→19:32)
[2017-04-04] MEDS: DOCUSATE SODIUM 100 MG CAPSULE PO SCH ×2 (09:06→19:33)
[2017-04-04] MEDS: LACTOBACILLUS ACIDOPH & BULGAR 1 TABLET. PO SCH ×2 (09:06→19:32)
[2017-04-04] MEDS: DIVALPROEX 125 MG CAP.SPRINK PO SCH ×2 (09:06→19:32)
[2017-04-04] MEDS: NAPROXEN 500 MG TABLET PO SCH ×2 (09:06→19:32)
[2017-04-04] MEDS: MAGNESIUM OXIDE 400 MG TABLET PO SCH (09:06)
--- NOTE | 2017-04-04 10:49 | PN ---
DATE: 04/01/2017 PSYCHIATRIC PROGRESS NOTE This late entry 04/01/2017 covers elements not covered in my initial note of 04/01/2017. I met with the patient evening of 04/01/2017. The patient continues to yell almost constantly, then when she gets tired she is quiet for a while. Continues to have mood lability. She is quite disruptive on the unit. REVIEW OF SYSTEMS: Ambulation impaired, in Broda chair. No CV, , pulmonary, eye, ENT system symptoms on review. Reliability poor. MENTAL STATUS EXAM: Oriented to herself. Insight, judgment, recent and remote memory, attention, concentration, fund of knowledge poor, consistent with her diagnosis mentioned in my initial note. Valproic acid level is 39. She is incontinent at night. PLAN: Continue psychotropics mentioned in my initial note, but increase the Depakote Sprinkles from 375 mg b.i.d. to 500 mg b.i.d. Check CBC, CMP, valproic acid level in 3 days. Consider Clozaril as a mood stabilizer and then taper off the Risperdal, but we will see how she does and initially with increase of Depakote before deciding the above. ELEANOR BILLS MD DR: JAIME/meli JOB#: [id number] / [id number]
--- NOTE | 2017-04-04 10:54 | PN ---
DATE: 04/02/2017 PSYCHIATRIC PROGRESS NOTE This late entry of 04/02/2017, covers elements not covered in my initial note of 04/02/2017. I met with the patient in the evening of 04/02/2017. The patient continues to yell when awake, cursing, rude, labile. No change from before, not any better. REVIEW OF SYSTEMS: Ambulation impaired, in a Broda chair. No CV, , pulmonary, eye, ENT system symptoms on review. Reliability poor. MENTAL STATUS EXAM: Oriented to herself. Insight, judgment, recent and remote memory, attention, concentration, fund of knowledge poor, consistent with her diagnosis mentioned in my initial note. PLAN: I have carefully reviewed the patient's drug interactions, risk/benefits ratio favors no further change other than adding Clozaril 25 mg p.o. at bedtime. Check CBC, CMP, absolute neutrophil count every Monday. I am adding the Clozaril because of her ongoing psychotic symptoms, marked mood lability, despite all we have done so far, which has been very complicated, but we put forth our best efforts at adjusting her psychotropics for mood stabilization. I am hopeful that Clozaril would help her see some benefits with the mood lability psychosis. ELEANOR BILLS MD DR: JAIME/meli JOB#: [id number] / [id number]
[2017-04-04 16:50] VITALS: BP 145/80
[2017-04-04] MEDS: MIRTAZAPINE 15 MG TABLET PO SCH (19:33)
[2017-04-04] MEDS: traZODone 100 MG TABLET. PO PRN (19:35)
[2017-04-04] MEDS: hydrOXYzine PAMOATE 25 MG CAPSULE PO PRN (19:35)
[2017-04-04] MEDS: cloZAPine 25 MG TABLET PO SCH (19:35)
[2017-04-04] MEDS: ATORVASTATIN CALCIUM 20 MG TABLET PO SCH (19:35)
--- NOTE | 2017-04-04 20:06 | PDOC ---
Exam Note: Jeanmarie Note: Please also refer to the separate dictated note~for this date of service dictated separately.~Patient seen individually. Discussed the patient with Nursing staff reviewed the chart.~Reviewed interim history and current functioning. Reviewed vital signs,~Labs/ Radiology~and current medications noted below. Continue current treatment with the changes noted in the dictated addendum note Assessment: Vital Signs: Vital Signs Date Time Temp Pulse Resp B/P (MAP) Pulse Ox O2 Delivery O2 Flow Rate FiO2 04/04/17 16:50 98.1 79 20 145/80 (101) 96 04/02/17 16:11 Room Air I&O Intake and Output 04/04/17 07:00 Intake Total 120 ml Balance 120 ml Intake Oral 120 ml Current Medications: Meds: Current Medications Lorazepam (Ativan) 0.5 mg 1X ONCE PO Last administered on 02/01/17 19:14; Start 02/01/17 at 19:15; Stop 02/01/17 at 19:16; Status DC Ceftriaxone Sodium (Rocephin Im) 1 gm 1X ONCE IM Last administered on 20:45; Start 02/01/17 at 20:30; Stop 02/01/17 at 20:31; Status DC Acetaminophen (Tylenol) 650 mg PRN Q6HRS PRN PO MILD PAIN / TEMP Last administered on 03/08/17 09:20; Start 02/01/17 at 23:15 Multi-Ingredient Ointment (Analgesic [place]) 1 rosita PRN QID PRN TP MUSCLE PAIN; Start 02/01/17 at 23:15 Al Hydroxide/Mg Hydroxide (Mylanta Plus Xs) 15 ml PRN AFTMEALHC PRN PO DYSPEPSIA; Start 02/01/17 at 23:15 Magnesium Hydroxide (Milk Of Magnesia) 2,400 mg PRN QHS PRN PO CONSTIPATION Last administered on 02/13/17 02:05; Start 02/01/17 at 23:15 Olanzapine (ZyPREXA) 5 mg HS PO Last administered on 02/13/17 19:31; Start at 21:00; Stop 02/14/17 at 18:51; Status DC Quetiapine Fumarate (SEROquel) 25 mg BID PO Last administered on 02/08/17 08: 42; Start 02/02/17 at 09:00; Stop 02/08/17 at 19:16; Status DC Sertraline HCl (Zoloft) 100 mg DAILY PO Last administered on 02/06/17 08:01; Start 02/02/17 at 09:00; Stop 02/06/17 at 18:56; Status DC Olanzapine (ZyPREXA) 5 mg 1X ONCE PO Last administered on 02/02/17 00:27; Start 02/02/17 at 00:30; Stop 02/02/17 at 00:31; Status DC Alprazolam (Xanax) 0.5 mg BID PO Last administered on 02/13/17 11:42; Start at 09:00; Stop 02/13/17 at 18:35; Status DC Lorazepam (Ativan) 0.5 mg PRN Q4HRS PRN PO ANXIETY / AGITATION Last administered on 02/02/17 14:57; Start 02/02/17 at 00:15; Stop 02/02/17 at 15:59 ; Status DC Levothyroxine Sodium (Synthroid) 112 mcg DAILY06 PO Last administered on 06:01; Start 02/02/17 at 10:00 Naproxen (Naprosyn) 500 mg BID PO Last administered on 04/04/17 19:32; Start 02/02/17 at 09:00 Atorvastatin Calcium (Lipitor) 40 mg QHS PO Last administered on 04/04/17 19: 35; Start 02/02/17 at 21:00 Mirtazapine (Remeron) 7.5 mg QHS PO Last administered on 02/20/17 23:08; Start 02/02/17 at 21:00; Stop 02/21/17 at 19:38; Status DC Olanzapine (ZyPREXA ZYDIS) 2.5 mg PRN Q2HR PRN PO PSYCHOSIS Last administered on 03/30/17 02:23; Start 02/02/17 at 15:45 Alprazolam (Xanax) 0.25 mg PRN Q2HR PRN PO ANXIETY / AGITATION Last administered on 02/13/17 16:33; Start 02/02/17 at 15:45; Stop 02/13/17 at 18:35 ; Status DC Docusate Sodium (Colace) 100 mg BID PO Last administered on 04/04/17 19:33; Start 02/02/17 at 21:00 Polyethylene Glycol (miraLAX) 17 gm DAILY PO Last administered on 04/04/17 09 :04; Start 02/03/17 at 09:00 Vitamin D (Vitamin D3) 50,000 unit WEEKLY PO Last administered on 03/31/17 08 :38; Start 02/10/17 at 09:00 Divalproex Sodium (Depakote Sprinkles) 125 mg TID@0900,1300,1700 PO Last administered on 02/06/17 16:46; Start 02/04/17 at 09:00; Stop 02/06/17 at 18:56 ; Status DC Divalproex Sodium (Depakote Sprinkles) 250 mg TID@0900,1300,1700 PO Last administered on 02/09/17 09:13; Start 02/07/17 at 09:00; Stop 02/09/17 at 13:03 ; Status DC Fluvoxamine Maleate (Luvox) 50 mg HS PO Last administered on 02/13/17 19:32; Start 02/06/17 at 21:00; Stop 02/14/17 at 18:51; Status DC Quetiapine Fumarate (SEROquel) 25 mg TID PO Last administered on 02/09/17 09: 16; Start 02/09/17 at 09:00; Stop 02/09/17 at 13:30; Status DC Divalproex Sodium (Depakote Sprinkles) 375 mg TID@0900,1300,1700 PO Last administered on 02/16/17 08:01; Start 02/09/17 at 13:00; Stop 02/16/17 at 19:13 ; Status DC Quetiapine Fumarate (SEROquel) 37.5 mg TID PO Last administered on 02/12/17 12 :55; Start 02/09/17 at 14:00; Stop 02/12/17 at 17:56; Status DC Olanzapine (ZyPREXA) 5 mg 1X ONCE PO Last administered on 02/12/17 11:57; Start 02/12/17 at 12:00; Stop 02/12/17 at 12:01; Status DC Quetiapine Fumarate (SEROquel) 50 mg TID PO Last administered on 02/19/17 13: 43; Start 02/12/17 at 21:00; Stop 02/19/17 at 18:29; Status DC Lorazepam (Ativan) 0.5 mg PRN Q2HR PRN PO ANXIETY / AGITATION Last administered on 03/31/17 23:26; Start 02/13/17 at 18:45 Lorazepam (Ativan) 0.5 mg BID PO Last administered on 02/16/17 08:04; Start at 21:00; Stop 02/17/17 at 17:37; Status DC Fluvoxamine Maleate (Luvox) 75 mg HS PO Last administered on 02/15/17 19:11; Start 02/14/17 at 21:00; Stop 02/16/17 at 22:01; Status DC Trazodone HCl (Desyrel) 12.5 mg TID PO Last administered on 02/14/17 19:39; Start 02/14/17 at 19:00; Stop 02/14/17 at 21:12; Status DC Trazodone HCl (Desyrel) 12.5 mg TIDWMEALS PO Last administered on 02/19/17 07: 57; Start 02/15/17 at 08:00; Stop 02/19/17 at 09:00; Status DC Fluvoxamine Maleate (Luvox) 100 mg HS PO Last administered on 02/27/17 19:14; Start 02/16/17 at 21:00; Stop 02/28/17 at 18:33; Status DC Lorazepam (Ativan) 0.25 mg BID PO Last administered on 02/18/17 20:06; Start 02/17/17 at 21:00; Stop 02/18/17 at 22:00; Status DC Trazodone HCl (Desyrel) 12.5 mg QID PO Last administered on 02/28/17 16:43; Start 02/19/17 at 09:00; Stop 02/28/17 at 18:19; Status DC Risperidone (RisperDAL) 0.125 mg TID@0900,1300,1700 PO Last administered on 17:31; Start 02/20/17 at 09:00; Stop 02/20/17 at 22:50; Status DC Mirtazapine (Remeron) 15 mg QHS PO Last administered on 03/13/17 20:15; Start 02/21/17 at 21:00; Stop 03/14/17 at 15:48; Status DC Trazodone HCl (Desyrel) 50 mg PRN QHS PRN PO INSOMNIA, SEPTEMBER REPEAT X1 Last administered on 02/23/17 00:34; Start 02/20/17 at 22:45; Stop 02/23/17 at 10:59 ; Status DC Risperidone (RisperDAL) 0.25 mg TID@0900,1300,1700 PO Last administered on 02/24 17:20; Start 02/21/17 at 09:00; Stop 02/24/17 at 19:06; Status DC Trazodone HCl (Desyrel) 100 mg PRN QHS PRN PO INSOMNIA, SEPTEMBER REPEAT X1 Last administered on 04/04/17 19:35; Start 02/23/17 at 11:15 Risperidone (RisperDAL) 0.375 mg TID@0900,1300,1700 PO Last administered on 16:26; Start 02/25/17 at 09:00; Stop 02/26/17 at 18:57; Status DC Carbamazepine (TEGretol) 200 mg QHS PO Last administered on 02/27/17 19:14; Start 02/24/17 at 21:00; Stop 02/28/17 at 18:19; Status DC Enoxaparin Sodium (Lovenox) 40 mg Q24H SQ Last administered on 03/11/17 11:55 ; Start 02/25/17 at 14:00; Stop 03/12/17 at 10:01; Status DC Cefpodoxime Proxetil (Vantin) 100 mg BID PO Last administered on 03/06/17 08: 37; Start 02/25/17 at 21:00; Stop 03/06/17 at 12:55; Status DC Risperidone (RisperDAL) 0.5 mg TID@0900,1300,1700 PO Last administered on 03/14 12:40; Start 02/27/17 at 09:00; Stop 03/14/17 at 15:48; Status DC Carbamazepine (TEGretol) 150 mg BID PO Last administered on 03/03/17 08:14; Start 02/28/17 at 21:00; Stop 03/03/17 at 18:20; Status DC Trazodone HCl (Desyrel) 25 mg TID@0900,1300,1700 PO Last administered on 17:34; Start 03/01/17 at 09:00; Stop 03/09/17 at 18:31; Status DC Fluvoxamine Maleate (Luvox) 150 mg HS PO Last administered on 03/20/17 19:25 ; Start 02/28/17 at 21:00; Stop 03/21/17 at 18:47; Status DC Fillmore Carbonate 300 mg QHS PO Last administered on 03/12/17 19:20; Start 03/02/17 at 21:00; Stop 03/13/17 at 14:53; Status DC Influenza Virus Vaccine Quadrival (Fluarix Quad 5250-7173 Syringe) 0.5 ml ONCE ONCE VAX IM Last administered on 03/04/17 09:57; Start 03/04/17 at 09:00; Stop 03/04/17 at 09:01; Status DC [place] Carbonate 150 mg DAILY PO Last administered on 03/13/17 09:52; Start 03/06/17 at 09:00; Stop 03/13/17 at 14:53; Status DC [place] Carbonate 75 mg DAILY PO Last administered on 03/13/17 09:51; Start 03/09/17 at 09:00; Stop 03/13/17 at 14:53; Status DC Trazodone HCl (Desyrel) 25 mg BID@1300,1700 PO Last administered on 03/10/17 17:19; Start 03/10/17 at 13:00; Stop 03/10/17 at 19:29; Status DC Trazodone HCl (Desyrel) 50 mg DAILY PO ; Start 03/10/17 at 09:00; Stop at 19:29; Status DC Magnesium Oxide (Magnesium Oxide) 400 mg DAILY PO Last administered on 09:06; Start 03/11/17 at 09:00 Trazodone HCl (Desyrel) 50 mg BID94 PO Last administered on 03/20/17 16:28; Start 03/11/17 at 09:00; Stop 03/20/17 at 18:59; Status DC Trazodone HCl (Desyrel) 25 mg DAILYWLUN PO Last administered on 03/20/17 13: 37; Start 03/11/17 at 12:00; Stop 03/20/17 at 18:59; Status DC Hydroxyzine Pamoate (Vistaril) 25 mg PRN Q6HRS PRN PO AGITATION Last administered on 04/04/17 19:35; Start 03/12/17 at 10:00 Enoxaparin Sodium (Lovenox) 40 mg Q24H SQ Last administered on 04/04/17 09:05 ; Start 03/13/17 at 09:00 [place] Carbonate 150 mg BID PO Last administered on 03/24/17 09:05; Start at 21:00; Stop 03/24/17 at 18:31; Status DC Mirtazapine (Remeron) 22.5 mg QHS PO Last administered on 04/04/17 19:33; Start 03/14/17 at 21:00 Risperidone (RisperDAL) 0.5 mg BID PO Last administered on 04/04/17 19:32; Start 03/14/17 at 21:00 Amoxicillin (Amoxil) 500 mg TID PO Last administered on 03/28/17 14:16; Start 03/17/17 at 19:30; Stop 03/28/17 at 17:05; Status DC Lactobacillus Acidophilus (Bacid, Kelly-Bid) 1 tab BID PO Last administered on 04/04/17 19:32; Start 03/17/17 at 19:30 Trazodone HCl (Desyrel) 50 mg TID@0900,1400,1600 PO Last administered on 16:04; Start 03/21/17 at 09:00; Stop 03/21/17 at 18:47; Status DC Fluvoxamine Maleate (Luvox) 175 mg HS PO Last administered on 03/23/17 19:27; Start 03/21/17 at 21:00; Stop 03/24/17 at 18:31; Status DC Trazodone HCl (Desyrel) 75 mg TID@0900,1600 PO Last administered on 03/23/17 17:10; Start 03/22/17 at 09:00; Stop 03/23/17 at 18:52; Status DC Trazodone HCl (Desyrel) 50 mg 1400 PO Last administered on 03/23/17 14:08; Start 03/22/17 at 14:00; Stop 03/23/17 at 18:52; Status DC Trazodone HCl (Desyrel) 100 mg TID@0900,1600 PO Last administered on 16:36; Start 03/24/17 at 09:00; Stop 04/04/17 at 18:29; Status DC Trazodone HCl (Desyrel) 75 mg DAILY@1400 PO Last administered on 04/02/17 14: 00; Start 03/24/17 at 14:00; Stop 04/04/17 at 18:29; Status DC Fluvoxamine Maleate (Luvox) 200 mg HS PO Last administered on 04/04/17 19:32 ; Start 03/24/17 at 21:00 Divalproex Sodium (Depakote Sprinkles) 250 mg BID PO Last administered on 09:35; Start 03/25/17 at 21:00; Stop 03/29/17 at 17:21; Status DC Divalproex Sodium (Depakote Sprinkles) 375 mg BID PO Last administered on 04/01 17:07; Start 03/29/17 at 21:00; Stop 04/01/17 at 18:31; Status DC Divalproex Sodium (Depakote Sprinkles) 500 mg BID PO Last administered on 04/04 19:32; Start 04/02/17 at 09:00 Clozapine (Clozaril) 25 mg HS PO Last administered on 04/04/17 19:35; Start 04/02/17 at 21:00 Trazodone HCl (Desyrel) 100 mg DAILY16 PO ; Start 04/05/17 at 16:00 Trazodone HCl (Desyrel) 75 mg DAILY PO ; Start 04/05/17 at 09:00 Trazodone HCl (Desyrel) 50 mg DAILY@1400 PO ; Start 04/05/17 at 14:00 Active Scripts Active Reported Atorvastatin Calcium 40 Mg Tablet 40 Mg PO QHS Naproxen 500 Mg Tablet 500 Mg PO BID Lorazepam 0.5 Mg Tablet 0.5 Mg PO PRN Q4HRS PRN Seroquel (Quetiapine Fumarate) 25 Mg Tablet 25 Mg PO BID Zoloft (Sertraline Hcl) 100 Mg Tablet 100 Mg PO DAILY Levothyroxine Sodium 112 Mcg Tablet 112 Mcg PO DAILYAC Olanzapine 5 Mg Tablet 5 Mg PO HS Alprazolam 0.5 Mg Tablet 0.5 Mg PO BID I have reviewed the current psychotropics carefully including drug interactions. Risk benefit ratio favors no change other than as noted in my dictated progress note. Diagnosis: Problems: (1) Anxiety disorder (2) Bipolar 1 disorder, mixed, moderate (3) Dementia in Alzheimer's disease with delusions (4) Dementia in Alzheimer's disease with depression (5) Dementia, vascular, with depression (6) Dementia, vascular, with delusions (7) Impulse control disorder ELEANOR BILLS MD Apr 04, 2017 20:06
[2017-04-05] MEDS: traZODone 100 MG TABLET. PO PRN (00:11)
[2017-04-05] MEDS: LORazepam 0.5 MG TABLET PO PRN (00:11)
[2017-04-05] MEDS: hydrOXYzine PAMOATE 25 MG CAPSULE PO PRN (03:13)
[2017-04-05] MEDS: LEVOTHYROXINE 112 MCG TABLET PO SCH (05:07)
[2017-04-05 05:49] VITALS: BP 136/72
[2017-04-05] MEDS: LACTOBACILLUS ACIDOPH & BULGAR 1 TABLET. PO SCH (09:00)
[2017-04-05] MEDS ORDERED: traZODone 50 MG TABLET. PO SCH ×2 (09:00→14:00)
[2017-04-05] MEDS: MAGNESIUM OXIDE 400 MG TABLET PO SCH (09:29)
[2017-04-05] MEDS: POLYETHYLENE GLYCOL 3350 17 GM PACKET. PO SCH (09:29)
[2017-04-05] MEDS: DOCUSATE SODIUM 100 MG CAPSULE PO SCH ×2 (09:29→20:59)
[2017-04-05] MEDS: DIVALPROEX 125 MG CAP.SPRINK PO SCH ×2 (09:29→21:01)
[2017-04-05] MEDS: risperiDONE 0.5 MG TABLET. PO SCH (09:29)
[2017-04-05] MEDS: NAPROXEN 500 MG TABLET PO SCH ×2 (09:30→20:59)
[2017-04-05] MEDS: ENOXAPARIN 40 MG/0.4 ML DISP.SYRIN. SQ SCH (09:31)
[2017-04-05 09:48] LABS: BASO # 0.1 x10^3/uL (0.0-0.2); BASO % 1 % (0-3); EOS # 0.2 x10^3/uL (0.0-0.7); EOS % 2 % (0-3); HEMATOCRIT 39.9 % (36.0-47.0); HEMOGLOBIN 13.5 g/dL (12.0-15.5); LYMPH # 1.2 x10^3/uL (1.0-4.8); LYMPH % 11 % (24-48); MEAN CORPUSCULAR HEMOGLOBIN 31 pg (25-35); MEAN CORPUSCULAR HGB CONC 34 g/dL (31-37); MEAN CORPUSCULAR VOLUME 92 fL (79-100); MONO # 0.9 x10^3/uL (0.0-1.1); MONO % 9 % (0-9); NEUT # 8.3 x10^3uL (1.8-7.7); NEUT % 77 % (31-73); PLATELET COUNT 253 x10^3/uL (140-400); RED BLOOD COUNT 4.34 x10^6/uL (3.50-5.40); RED CELL DISTRIBUTION WIDTH 15.2 % (11.5-14.5); WHITE BLOOD COUNT 10.7 x10^3/uL (4.0-11.0)
[2017-04-05 09:49] LABS: ALBUMIN 3.2 g/dL (3.4-5.0); ALBUMIN/GLOBULIN RATIO 1.2 (1.0-1.7); ALK PHOS 77 U/L (46-116); ALT (SGPT) 32 U/L (14-59); ANION GAP 8 (6-14); AST (SGOT) 25 U/L (15-37); BLOOD UREA NITROGEN 31 mg/dL (7-20); BUN/CREATININE RATIO 44 (6-20); CALCIUM 8.6 mg/dL (8.5-10.1); CARBON DIOXIDE 28 mmol/L (21-32); CHLORIDE 111 mmol/L (98-107); CREATININE 0.7 mg/dL (0.6-1.0); GFR 83.5; GLUCOSE 102 mg/dL (70-99); POTASSIUM 4.1 mmol/L (3.5-5.1); SODIUM 147 mmol/L (136-145); TOTAL BILIRUBIN 0.3 mg/dL (0.2-1.0); TOTAL PROTEIN 5.8 g/dL (6.4-8.2)
[2017-04-05 09:50] LABS: VAL ACID 54 mcg/mL (50-100)
--- NOTE | 2017-04-05 10:58 | PN ---
DATE: 04/03/2017 This is late entry 03/24, covers elements not covered in my initial note of . SUBJECTIVE: I met with the patient evening of 04/03. The patient remains confused, constantly yelling out health program specialist, she was quite sedated, but this was probably because she had not slept much for 2 nights. REVIEW OF SYSTEMS: Ambulation impaired, in a Broda chair. No CV, , pulmonary, eye, ENT system symptoms on review. Reliability poor. MENTAL STATUS EXAM: Oriented to herself. Insight, judgment, recent and remote memory, attention, concentration, fund of knowledge poor, consistent with her diagnosis as mentioned in my initial note. PLAN: Continue psychotropics mentioned in my initial note. Adjust further as clinically indicated. MAN Aden BILLS MD DR: JAIME/meil JOB#: [id number] / [id number]
[2017-04-05] MEDS ORDERED: traZODone 100 MG TABLET. PO SCH (16:00)
[2017-04-05 16:08] VITALS: BP 131/74
--- NOTE | 2017-04-05 20:11 | PDOC ---
Exam Note: Jeanmarie Note: Please also refer to the separate dictated note~for this date of service dictated separately.~Patient seen individually. Discussed the patient with Nursing staff reviewed the chart.~Reviewed interim history and current functioning. Reviewed vital signs,~Labs/ Radiology~and current medications noted below. Continue current treatment with the changes noted in the dictated addendum note Assessment: Vital Signs: Vital Signs Date Time Temp Pulse Resp B/P (MAP) Pulse Ox O2 Delivery O2 Flow Rate FiO2 04/05/17 16:08 98.3 83 22 131/74 (93) 94 04/02/17 16:11 Room Air I&O Intake and Output 04/05/17 07:00 Intake Total 420 ml Balance 420 ml Intake Oral 420 ml # Bowel Movements 2 Labs: Laboratory Tests Test 04/05/17 09:15 White Blood Count 10.7 x10^3/uL (4.0-11.0) Red Blood Count 4.34 x10^6/uL (3.50-5.40) Hemoglobin 13.5 g/dL (12.0-15.5) Hematocrit 39.9 % (36.0-47.0) Mean Corpuscular Volume 92 fL (79-100) Mean Corpuscular Hemoglobin 31 pg (25-35) Mean Corpuscular Hemoglobin Concent 34 g/dL (31-37) Red Cell Distribution Width 15.2 % (11.5-14.5) H Platelet Count 253 x10^3/uL (140-400) Neutrophils (%) (Auto) 77 % (31-73) H Lymphocytes (%) (Auto) 11 % (24-48) L Monocytes (%) (Auto) 9 % (0-9) Eosinophils (%) (Auto) 2 % (0-3) Basophils (%) (Auto) 1 % (0-3) Neutrophils # (Auto) 8.3 x10^3uL (1.8-7.7) H Lymphocytes # (Auto) 1.2 x10^3/uL (1.0-4.8) Monocytes # (Auto) 0.9 x10^3/uL (0.0-1.1) Eosinophils # (Auto) 0.2 x10^3/uL (0.0-0.7) Basophils # (Auto) 0.1 x10^3/uL (0.0-0.2) Sodium Level 147 mmol/L (136-145) H Potassium Level 4.1 mmol/L (3.5-5.1) Chloride Level 111 mmol/L (98-107) H Carbon Dioxide Level 28 mmol/L (21-32) Anion Gap 8 (6-14) Blood Urea Nitrogen 31 mg/dL (7-20) H Creatinine 0.7 mg/dL (0.6-1.0) Estimated GFR (Cockcroft-Gault) 83.5 BUN/Creatinine Ratio 44 (6-20) H Glucose Level 102 mg/dL (70-99) H Calcium Level 8.6 mg/dL (8.5-10.1) Total Bilirubin 0.3 mg/dL (0.2-1.0) Aspartate Amino Transferase (AST) 25 U/L (15-37) Alanine Aminotransferase (ALT) 32 U/L (14-59) Alkaline Phosphatase 77 U/L (46-116) Total Protein 5.8 g/dL (6.4-8.2) L Albumin 3.2 g/dL (3.4-5.0) L Albumin/Globulin Ratio 1.2 (1.0-1.7) Valproic Acid Level 54 mcg/mL (50-100) Valproic Acid Last Dose Date 04/04/17 Valproic Acid Last Dose Time 2100 Current Medications: Meds: Current Medications Lorazepam (Ativan) 0.5 mg 1X ONCE PO Last administered on 02/01/17 19:14; Start 02/01/17 at 19:15; Stop 02/01/17 at 19:16; Status DC Ceftriaxone Sodium (Rocephin Im) 1 gm 1X ONCE IM Last administered on 20:45; Start 02/01/17 at 20:30; Stop 02/01/17 at 20:31; Status DC Acetaminophen (Tylenol) 650 mg PRN Q6HRS PRN PO MILD PAIN / TEMP Last administered on 03/08/17 09:20; Start 02/01/17 at 23:15 Multi-Ingredient Ointment (Analgesic [place]) 1 rosita PRN QID PRN TP MUSCLE PAIN; Start 02/01/17 at 23:15 Al Hydroxide/Mg Hydroxide (Mylanta Plus Xs) 15 ml PRN AFTMEALHC PRN PO DYSPEPSIA; Start 02/01/17 at 23:15 Magnesium Hydroxide (Milk Of Magnesia) 2,400 mg PRN QHS PRN PO CONSTIPATION Last administered on 02/13/17 02:05; Start 02/01/17 at 23:15 Olanzapine (ZyPREXA) 5 mg HS PO Last administered on 02/13/17 19:31; Start at 21:00; Stop 02/14/17 at 18:51; Status DC Quetiapine Fumarate (SEROquel) 25 mg BID PO Last administered on 02/08/17 08: 42; Start 02/02/17 at 09:00; Stop 02/08/17 at 19:16; Status DC Sertraline HCl (Zoloft) 100 mg DAILY PO Last administered on 02/06/17 08:01; Start 02/02/17 at 09:00; Stop 02/06/17 at 18:56; Status DC Olanzapine (ZyPREXA) 5 mg 1X ONCE PO Last administered on 02/02/17 00:27; Start 02/02/17 at 00:30; Stop 02/02/17 at 00:31; Status DC Alprazolam (Xanax) 0.5 mg BID PO Last administered on 02/13/17 11:42; Start at 09:00; Stop 02/13/17 at 18:35; Status DC Lorazepam (Ativan) 0.5 mg PRN Q4HRS PRN PO ANXIETY / AGITATION Last administered on 02/02/17 14:57; Start 02/02/17 at 00:15; Stop 02/02/17 at 15:59 ; Status DC Levothyroxine Sodium (Synthroid) 112 mcg DAILY06 PO Last administered on 05:07; Start 02/02/17 at 10:00 Naproxen (Naprosyn) 500 mg BID PO Last administered on 04/05/17 09:30; Start 02/02/17 at 09:00 Atorvastatin Calcium (Lipitor) 40 mg QHS PO Last administered on 04/04/17 19: 35; Start 02/02/17 at 21:00 Mirtazapine (Remeron) 7.5 mg QHS PO Last administered on 02/20/17 23:08; Start 02/02/17 at 21:00; Stop 02/21/17 at 19:38; Status DC Olanzapine (ZyPREXA ZYDIS) 2.5 mg PRN Q2HR PRN PO PSYCHOSIS Last administered on 03/30/17 02:23; Start 02/02/17 at 15:45 Alprazolam (Xanax) 0.25 mg PRN Q2HR PRN PO ANXIETY / AGITATION Last administered on 02/13/17 16:33; Start 02/02/17 at 15:45; Stop 02/13/17 at 18:35 ; Status DC Docusate Sodium (Colace) 100 mg BID PO Last administered on 04/05/17 09:29; Start 02/02/17 at 21:00 Polyethylene Glycol (miraLAX) 17 gm DAILY PO Last administered on 04/05/17 09 :29; Start 02/03/17 at 09:00 Vitamin D (Vitamin D3) 50,000 unit WEEKLY PO Last administered on 03/31/17 08 :38; Start 02/10/17 at 09:00 Divalproex Sodium (Depakote Sprinkles) 125 mg TID@0900,1300,1700 PO Last administered on 02/06/17 16:46; Start 02/04/17 at 09:00; Stop 02/06/17 at 18:56 ; Status DC Divalproex Sodium (Depakote Sprinkles) 250 mg TID@0900,1300,1700 PO Last administered on 02/09/17 09:13; Start 02/07/17 at 09:00; Stop 02/09/17 at 13:03 ; Status DC Fluvoxamine Maleate (Luvox) 50 mg HS PO Last administered on 02/13/17 19:32; Start 02/06/17 at 21:00; Stop 02/14/17 at 18:51; Status DC Quetiapine Fumarate (SEROquel) 25 mg TID PO Last administered on 02/09/17 09: 16; Start 02/09/17 at 09:00; Stop 02/09/17 at 13:30; Status DC Divalproex Sodium (Depakote Sprinkles) 375 mg TID@0900,1300,1700 PO Last administered on 02/16/17 08:01; Start 02/09/17 at 13:00; Stop 02/16/17 at 19:13 ; Status DC Quetiapine Fumarate (SEROquel) 37.5 mg TID PO Last administered on 02/12/17 12 :55; Start 02/09/17 at 14:00; Stop 02/12/17 at 17:56; Status DC Olanzapine (ZyPREXA) 5 mg 1X ONCE PO Last administered on 02/12/17 11:57; Start 02/12/17 at 12:00; Stop 02/12/17 at 12:01; Status DC Quetiapine Fumarate (SEROquel) 50 mg TID PO Last administered on 02/19/17 13: 43; Start 02/12/17 at 21:00; Stop 02/19/17 at 18:29; Status DC Lorazepam (Ativan) 0.5 mg PRN Q2HR PRN PO ANXIETY / AGITATION Last administered on 04/05/17 00:11; Start 02/13/17 at 18:45 Lorazepam (Ativan) 0.5 mg BID PO Last administered on 02/16/17 08:04; Start at 21:00; Stop 02/17/17 at 17:37; Status DC Fluvoxamine Maleate (Luvox) 75 mg HS PO Last administered on 02/15/17 19:11; Start 02/14/17 at 21:00; Stop 02/16/17 at 22:01; Status DC Trazodone HCl (Desyrel) 12.5 mg TID PO Last administered on 02/14/17 19:39; Start 02/14/17 at 19:00; Stop 02/14/17 at 21:12; Status DC Trazodone HCl (Desyrel) 12.5 mg TIDWMEALS PO Last administered on 02/19/17 07: 57; Start 02/15/17 at 08:00; Stop 02/19/17 at 09:00; Status DC Fluvoxamine Maleate (Luvox) 100 mg HS PO Last administered on 02/27/17 19:14; Start 02/16/17 at 21:00; Stop 02/28/17 at 18:33; Status DC Lorazepam (Ativan) 0.25 mg BID PO Last administered on 02/18/17 20:06; Start 02/17/17 at 21:00; Stop 02/18/17 at 22:00; Status DC Trazodone HCl (Desyrel) 12.5 mg QID PO Last administered on 02/28/17 16:43; Start 02/19/17 at 09:00; Stop 02/28/17 at 18:19; Status DC Risperidone (RisperDAL) 0.125 mg TID@0900,1300,1700 PO Last administered on 17:31; Start 02/20/17 at 09:00; Stop 02/20/17 at 22:50; Status DC Mirtazapine (Remeron) 15 mg QHS PO Last administered on 03/13/17 20:15; Start 02/21/17 at 21:00; Stop 03/14/17 at 15:48; Status DC Trazodone HCl (Desyrel) 50 mg PRN QHS PRN PO INSOMNIA, MAY REPEAT X1 Last administered on 02/23/17 00:34; Start 02/20/17 at 22:45; Stop 02/23/17 at 10:59 ; Status DC Risperidone (RisperDAL) 0.25 mg TID@0900,1300,1700 PO Last administered on 02/24 17:20; Start 02/21/17 at 09:00; Stop 02/24/17 at 19:06; Status DC Trazodone HCl (Desyrel) 100 mg PRN QHS PRN PO INSOMNIA, MAY REPEAT X1 Last administered on 04/05/17 00:11; Start 02/23/17 at 11:15 Risperidone (RisperDAL) 0.375 mg TID@0900,1300,1700 PO Last administered on 16:26; Start 02/25/17 at 09:00; Stop 02/26/17 at 18:57; Status DC Carbamazepine (TEGretol) 200 mg QHS PO Last administered on 02/27/17 19:14; Start 02/24/17 at 21:00; Stop 02/28/17 at 18:19; Status DC Enoxaparin Sodium (Lovenox) 40 mg Q24H SQ Last administered on 03/11/17 11:55 ; Start 02/25/17 at 14:00; Stop 03/12/17 at 10:01; Status DC Cefpodoxime Proxetil (Vantin) 100 mg BID PO Last administered on 03/06/17 08: 37; Start 02/25/17 at 21:00; Stop 03/06/17 at 12:55; Status DC Risperidone (RisperDAL) 0.5 mg TID@0900,1300,1700 PO Last administered on 03/14 12:40; Start 02/27/17 at 09:00; Stop 03/14/17 at 15:48; Status DC Carbamazepine (TEGretol) 150 mg BID PO Last administered on 03/03/17 08:14; Start 02/28/17 at 21:00; Stop 03/03/17 at 18:20; Status DC Trazodone HCl (Desyrel) 25 mg TID@0900,1300,1700 PO Last administered on 17:34; Start 03/01/17 at 09:00; Stop 03/09/17 at 18:31; Status DC Fluvoxamine Maleate (Luvox) 150 mg HS PO Last administered on 03/20/17 19:25 ; Start 02/28/17 at 21:00; Stop 03/21/17 at 18:47; Status DC Olivarez Carbonate 300 mg QHS PO Last administered on 03/12/17 19:20; Start 03/02/17 at 21:00; Stop 03/13/17 at 14:53; Status DC Influenza Virus Vaccine Quadrival (Fluarix Quad 6011-5399 Syringe) 0.5 ml ONCE ONCE VAX IM Last administered on 03/04/17 09:57; Start 03/04/17 at 09:00; Stop 03/04/17 at 09:01; Status DC Olivarez Carbonate 150 mg DAILY PO Last administered on 03/13/17 09:52; Start 03/06/17 at 09:00; Stop 03/13/17 at 14:53; Status DC Olivarez Carbonate 75 mg DAILY PO Last administered on 03/13/17 09:51; Start 03/09/17 at 09:00; Stop 03/13/17 at 14:53; Status DC Trazodone HCl (Desyrel) 25 mg BID@1300,1700 PO Last administered on 03/10/17 17:19; Start 03/10/17 at 13:00; Stop 03/10/17 at 19:29; Status DC Trazodone HCl (Desyrel) 50 mg DAILY PO ; Start 03/10/17 at 09:00; Stop at 19:29; Status DC Magnesium Oxide (Magnesium Oxide) 400 mg DAILY PO Last administered on 09:29; Start 03/11/17 at 09:00 Trazodone HCl (Desyrel) 50 mg BID94 PO Last administered on 03/20/17 16:28; Start 03/11/17 at 09:00; Stop 03/20/17 at 18:59; Status DC Trazodone HCl (Desyrel) 25 mg DAILYWLUN PO Last administered on 03/20/17 13: 37; Start 03/11/17 at 12:00; Stop 03/20/17 at 18:59; Status DC Hydroxyzine Pamoate (Vistaril) 25 mg PRN Q6HRS PRN PO AGITATION Last administered on 04/05/17 03:13; Start 03/12/17 at 10:00 Enoxaparin Sodium (Lovenox) 40 mg Q24H SQ Last administered on 04/05/17 09:31 ; Start 03/13/17 at 09:00 Olivarez Carbonate 150 mg BID PO Last administered on 03/24/17 09:05; Start at 21:00; Stop 03/24/17 at 18:31; Status DC Mirtazapine (Remeron) 22.5 mg QHS PO Last administered on 04/04/17 19:33; Start 03/14/17 at 21:00 Risperidone (RisperDAL) 0.5 mg BID PO Last administered on 04/05/17 09:29; Start 03/14/17 at 21:00; Stop 04/05/17 at 18:55; Status DC Amoxicillin (Amoxil) 500 mg TID PO Last administered on 03/28/17 14:16; Start 03/17/17 at 19:30; Stop 03/28/17 at 17:05; Status DC Lactobacillus Acidophilus (Bacid, Kelly-Bid) 1 tab BID PO Last administered on 04/04/17 19:32; Start 03/17/17 at 19:30; Stop 04/05/17 at 14:35; Status DC Trazodone HCl (Desyrel) 50 mg TID@0900,1400,1600 PO Last administered on 16:04; Start 03/21/17 at 09:00; Stop 03/21/17 at 18:47; Status DC Fluvoxamine Maleate (Luvox) 175 mg HS PO Last administered on 03/23/17 19:27; Start 03/21/17 at 21:00; Stop 03/24/17 at 18:31; Status DC Trazodone HCl (Desyrel) 75 mg TID@0900,1600 PO Last administered on 03/23/17 17:10; Start 03/22/17 at 09:00; Stop 03/23/17 at 18:52; Status DC Trazodone HCl (Desyrel) 50 mg 1400 PO Last administered on 03/23/17 14:08; Start 03/22/17 at 14:00; Stop 03/23/17 at 18:52; Status DC Trazodone HCl (Desyrel) 100 mg TID@0900,1600 PO Last administered on 16:36; Start 03/24/17 at 09:00; Stop 04/04/17 at 18:29; Status DC Trazodone HCl (Desyrel) 75 mg DAILY@1400 PO Last administered on 04/02/17 14: 00; Start 03/24/17 at 14:00; Stop 04/04/17 at 18:29; Status DC Fluvoxamine Maleate (Luvox) 200 mg HS PO Last administered on 04/04/17 19:32 ; Start 03/24/17 at 21:00 Divalproex Sodium (Depakote Sprinkles) 250 mg BID PO Last administered on 09:35; Start 03/25/17 at 21:00; Stop 03/29/17 at 17:21; Status DC Divalproex Sodium (Depakote Sprinkles) 375 mg BID PO Last administered on 04/01 17:07; Start 03/29/17 at 21:00; Stop 04/01/17 at 18:31; Status DC Divalproex Sodium (Depakote Sprinkles) 500 mg BID PO Last administered on 04/05 09:29; Start 04/02/17 at 09:00 Clozapine (Clozaril) 25 mg HS PO Last administered on 04/04/17 19:35; Start 04/02/17 at 21:00; Stop 04/05/17 at 18:56; Status DC Trazodone HCl (Desyrel) 100 mg DAILY16 PO Last administered on 04/05/17 16:07 ; Start 04/05/17 at 16:00; Stop 04/05/17 at 18:57; Status DC Trazodone HCl (Desyrel) 75 mg DAILY PO Last administered on 04/05/17 09:37; Start 04/05/17 at 09:00; Stop 04/05/17 at 18:57; Status DC Trazodone HCl (Desyrel) 50 mg DAILY@1400 PO Last administered on 04/05/17 13: 56; Start 04/05/17 at 14:00 Lactobacillus Rhamnosus (Culturelle) 1 cap BID PO ; Start 04/05/17 at 21:00 Risperidone (RisperDAL) 0.25 mg BID PO ; Start 04/05/17 at 21:00 Clozapine (Clozaril) 50 mg HS PO ; Start 04/05/17 at 21:00 Trazodone HCl (Desyrel) 75 mg DAILY16 PO ; Start 04/06/17 at 16:00 Trazodone HCl (Desyrel) 50 mg DAILY PO ; Start 04/06/17 at 09:00 Active Scripts Active Reported Atorvastatin Calcium 40 Mg Tablet 40 Mg PO QHS Naproxen 500 Mg Tablet 500 Mg PO BID Lorazepam 0.5 Mg Tablet 0.5 Mg PO PRN Q4HRS PRN Seroquel (Quetiapine Fumarate) 25 Mg Tablet 25 Mg PO BID Zoloft (Sertraline Hcl) 100 Mg Tablet 100 Mg PO DAILY Levothyroxine Sodium 112 Mcg Tablet 112 Mcg PO DAILYAC Olanzapine 5 Mg Tablet 5 Mg PO HS Alprazolam 0.5 Mg Tablet 0.5 Mg PO BID I have reviewed the current psychotropics carefully including drug interactions. Risk benefit ratio favors no change other than as noted in my dictated progress note. Diagnosis: Problems: (1) Anxiety disorder (2) Bipolar 1 disorder, mixed, moderate (3) Dementia in Alzheimer's disease with delusions (4) Dementia in Alzheimer's disease with depression (5) Dementia, vascular, with depression (6) Dementia, vascular, with delusions (7) Impulse control disorder ELEANOR BILLS MD Apr 05, 2017 20:11
[2017-04-05] MEDS: ATORVASTATIN CALCIUM 20 MG TABLET PO SCH (21:00)
[2017-04-05] MEDS: MIRTAZAPINE 15 MG TABLET PO SCH (21:00)
[2017-04-05] MEDS: LACTOBACILLUS RHAMNOSUS GG 1 CAPSULE. PO SCH (21:03)
[2017-04-05] MEDS: risperiDONE 0.25 MG TABLET. PO SCH (21:03)
[2017-04-05] MEDS: cloZAPine 25 MG TABLET PO SCH (21:03)
[2017-04-06] MEDS: LEVOTHYROXINE 112 MCG TABLET PO SCH (05:38)
[2017-04-06 05:55] VITALS: BP 128/73
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
[2017-04-06 07:37] LABS: BASO % 1 % (0-3); EOS # 0.3 x10^3/uL (0.0-0.7); EOS % 6 % (0-3); HEMATOCRIT 38.2 % (36.0-47.0); HEMOGLOBIN 12.9 g/dL (12.0-15.5); LYMPH # 1.2 x10^3/uL (1.0-4.8); LYMPH % 24 % (24-48); MEAN CORPUSCULAR HEMOGLOBIN 31 pg (25-35); MEAN CORPUSCULAR HGB CONC 34 g/dL (31-37); MEAN CORPUSCULAR VOLUME 93 fL (79-100); MONO # 0.6 x10^3/uL (0.0-1.1); MONO % 11 % (0-9); NEUT # 3.1 x10^3uL (1.8-7.7); NEUT % 59 % (31-73); PLATELET COUNT 199 x10^3/uL (140-400); RED BLOOD COUNT 4.13 x10^6/uL (3.50-5.40); RED CELL DISTRIBUTION WIDTH 15.1 % (11.5-14.5); WHITE BLOOD COUNT 5.3 x10^3/uL (4.0-11.0)
[2017-04-06 07:53] LABS: ALBUMIN 2.9 g/dL (3.4-5.0); ALBUMIN/GLOBULIN RATIO 1.2 (1.0-1.7); CALCIUM 8.4 mg/dL (8.5-10.1); CREATININE 0.7 mg/dL (0.6-1.0); GFR 83.5; MAGNESIUM 2.3 mg/dL (1.8-2.4); POTASSIUM 4.2 mmol/L (3.5-5.1); TOTAL BILIRUBIN 0.3 mg/dL (0.2-1.0); TOTAL PROTEIN 5.4 g/dL (6.4-8.2)
[2017-04-06] MEDS ORDERED: traZODone 50 MG TABLET. PO SCH (09:00)
--- NOTE | 2017-04-06 09:24 | PN ---
DATE: 04/04/2017 PSYCHIATRIC PROGRESS NOTE This late entry date of service 04/04/2017 covers elements, not covered in my initial note of 04/04/2017. I met with the patient evening of 04/04/2017. The patient slept through breakfast, was sedated and whenever she is awake, she is yelling. She has been combative, hitting, rude, calling nursing staff "you are ugly" ____ closed. Medications were held at 2:00 p.m. since she was somewhat sedated. Nursing staff noted that the previous evening, she was extremely labile, disruptive, yelling, did not sleep till 2:00 a.m. REVIEW OF SYSTEMS: Ambulation impaired, in Broda chair. No CV, , pulmonary, eye, ENT system symptoms on review. I had to feed a part of her supper. Reliability poor. MENTAL STATUS EXAM: Oriented to herself. Insight, judgment, recent and remote memory, attention, concentration, fund of knowledge poor, consistent with her diagnosis mentioned in my initial note. PLAN: She is somewhat sedated during the day. We will reduce the 9 a.m. trazodone from 100 mg down to 75 mg and 2 p.m. down to 50 mg from 75 mg. Maintain the rest unchanged. Make further changes as clinically indicated. ELEANOR BILLS MD DR: JAIME/meli JOB#: [id number] / [id number]
[2017-04-06 09:33] LABS: % BANDS 1 % (0-9); % EOS 9 % (0-5); % LYMPHS 20 % (24-48); % MONOS 11 % (0-10); % SEGS 59 % (35-66); PLT ESTIMATE ADEQUATE (ADEQUATE)
[2017-04-06] MEDS: MAGNESIUM OXIDE 400 MG TABLET PO SCH (09:39)
[2017-04-06] MEDS: risperiDONE 0.25 MG TABLET. PO SCH ×2 (09:39→20:10)
[2017-04-06] MEDS: ENOXAPARIN 40 MG/0.4 ML DISP.SYRIN. SQ SCH (09:39)
[2017-04-06] MEDS: LACTOBACILLUS RHAMNOSUS GG 1 CAPSULE. PO SCH ×2 (09:39→20:09)
[2017-04-06] MEDS: POLYETHYLENE GLYCOL 3350 17 GM PACKET. PO SCH (09:39)
[2017-04-06] MEDS: DIVALPROEX 125 MG CAP.SPRINK PO SCH ×2 (09:39→20:10)
[2017-04-06] MEDS: NAPROXEN 500 MG TABLET PO SCH ×2 (09:39→20:10)
[2017-04-06] MEDS: DOCUSATE SODIUM 100 MG CAPSULE PO SCH ×2 (09:39→20:11)
[2017-04-06] MEDS ORDERED: traZODone 100 MG TABLET. PO SCH (16:00)
[2017-04-06 17:00] VITALS: BP 119/73
[2017-04-06] MEDS: ATORVASTATIN CALCIUM 20 MG TABLET PO SCH (20:09)
[2017-04-06] MEDS: cloZAPine 25 MG TABLET PO SCH (20:10)
[2017-04-06] MEDS: MIRTAZAPINE 15 MG TABLET PO SCH (20:11)
--- NOTE | 2017-04-06 20:42 | PDOC ---
Exam Note: Jeanmarie Note: Please also refer to the separate dictated note~for this date of service dictated separately.~Patient seen individually. Discussed the patient with Nursing staff reviewed the chart.~Reviewed interim history and current functioning. Reviewed vital signs,~Labs/ Radiology~and current medications noted below. Continue current treatment with the changes noted in the dictated addendum note Assessment: Vital Signs: Vital Signs Date Time Temp Pulse Resp B/P (MAP) Pulse Ox O2 Delivery O2 Flow Rate FiO2 04/06/17 17:00 98.0 67 16 119/73 (88) 92 Room Air I&O Intake and Output 04/06/17 07:00 Intake Total 552 ml Output Total 600 ml Balance -48 ml Intake Oral 552 ml Output Urine Total 600 ml # Bowel Movements 3 Labs: Laboratory Tests Test 04/06/17 07:30 White Blood Count 5.3 x10^3/uL (4.0-11.0) # Red Blood Count 4.13 x10^6/uL (3.50-5.40) Hemoglobin 12.9 g/dL (12.0-15.5) Hematocrit 38.2 % (36.0-47.0) Mean Corpuscular Volume 93 fL (79-100) Mean Corpuscular Hemoglobin 31 pg (25-35) Mean Corpuscular Hemoglobin Concent 34 g/dL (31-37) Red Cell Distribution Width 15.1 % (11.5-14.5) H Platelet Count 199 x10^3/uL (140-400) Neutrophils (%) (Auto) 59 % (31-73) Lymphocytes (%) (Auto) 24 % (24-48) Monocytes (%) (Auto) 11 % (0-9) H Eosinophils (%) (Auto) 6 % (0-3) H Basophils (%) (Auto) 1 % (0-3) Neutrophils # (Auto) 3.1 x10^3uL (1.8-7.7) Lymphocytes # (Auto) 1.2 x10^3/uL (1.0-4.8) Monocytes # (Auto) 0.6 x10^3/uL (0.0-1.1) Eosinophils # (Auto) 0.3 x10^3/uL (0.0-0.7) Basophils # (Auto) 0.0 x10^3/uL (0.0-0.2) Segmented Neutrophils % 59 % (35-66) Band Neutrophils % 1 % (0-9) Lymphocytes % 20 % (24-48) L Monocytes % 11 % (0-10) H Eosinophils % 9 % (0-5) H Platelet Estimate Adequate (ADEQUATE) Giant Platelets Occ Sodium Level 148 mmol/L (136-145) H Potassium Level 4.2 mmol/L (3.5-5.1) Chloride Level 112 mmol/L (98-107) H Carbon Dioxide Level 30 mmol/L (21-32) Anion Gap 6 (6-14) Blood Urea Nitrogen 35 mg/dL (7-20) H Creatinine 0.7 mg/dL (0.6-1.0) Estimated GFR (Cockcroft-Gault) 83.5 BUN/Creatinine Ratio 50 (6-20) H Glucose Level 94 mg/dL (70-99) Calcium Level 8.4 mg/dL (8.5-10.1) L Magnesium Level 2.3 mg/dL (1.8-2.4) Total Bilirubin 0.3 mg/dL (0.2-1.0) Aspartate Amino Transferase (AST) 22 U/L (15-37) Alanine Aminotransferase (ALT) 30 U/L (14-59) Alkaline Phosphatase 70 U/L (46-116) Total Protein 5.4 g/dL (6.4-8.2) L Albumin 2.9 g/dL (3.4-5.0) L Albumin/Globulin Ratio 1.2 (1.0-1.7) Current Medications: Meds: Current Medications Lorazepam (Ativan) 0.5 mg 1X ONCE PO Last administered on 02/01/17 19:14; Start 02/01/17 at 19:15; Stop 02/01/17 at 19:16; Status DC Ceftriaxone Sodium (Rocephin Im) 1 gm 1X ONCE IM Last administered on 20:45; Start 02/01/17 at 20:30; Stop 02/01/17 at 20:31; Status DC Acetaminophen (Tylenol) 650 mg PRN Q6HRS PRN PO MILD PAIN / TEMP Last administered on 03/08/17 09:20; Start 02/01/17 at 23:15 Multi-Ingredient Ointment (Analgesic [place]) 1 rosita PRN QID PRN TP MUSCLE PAIN; Start 02/01/17 at 23:15 Al Hydroxide/Mg Hydroxide (Mylanta Plus Xs) 15 ml PRN AFTMEALHC PRN PO DYSPEPSIA; Start 02/01/17 at 23:15 Magnesium Hydroxide (Milk Of Magnesia) 2,400 mg PRN QHS PRN PO CONSTIPATION Last administered on 02/13/17 02:05; Start 02/01/17 at 23:15 Olanzapine (ZyPREXA) 5 mg HS PO Last administered on 02/13/17 19:31; Start at 21:00; Stop 02/14/17 at 18:51; Status DC Quetiapine Fumarate (SEROquel) 25 mg BID PO Last administered on 02/08/17 08: 42; Start 02/02/17 at 09:00; Stop 02/08/17 at 19:16; Status DC Sertraline HCl (Zoloft) 100 mg DAILY PO Last administered on 02/06/17 08:01; Start 02/02/17 at 09:00; Stop 02/06/17 at 18:56; Status DC Olanzapine (ZyPREXA) 5 mg 1X ONCE PO Last administered on 02/02/17 00:27; Start 02/02/17 at 00:30; Stop 02/02/17 at 00:31; Status DC Alprazolam (Xanax) 0.5 mg BID PO Last administered on 02/13/17 11:42; Start at 09:00; Stop 02/13/17 at 18:35; Status DC Lorazepam (Ativan) 0.5 mg PRN Q4HRS PRN PO ANXIETY / AGITATION Last administered on 02/02/17 14:57; Start 02/02/17 at 00:15; Stop 02/02/17 at 15:59 ; Status DC Levothyroxine Sodium (Synthroid) 112 mcg DAILY06 PO Last administered on 05:38; Start 02/02/17 at 10:00 Naproxen (Naprosyn) 500 mg BID PO Last administered on 04/06/17 20:10; Start 02/02/17 at 09:00 Atorvastatin Calcium (Lipitor) 40 mg QHS PO Last administered on 04/06/17 20: 09; Start 02/02/17 at 21:00 Mirtazapine (Remeron) 7.5 mg QHS PO Last administered on 02/20/17 23:08; Start 02/02/17 at 21:00; Stop 02/21/17 at 19:38; Status DC Olanzapine (ZyPREXA ZYDIS) 2.5 mg PRN Q2HR PRN PO PSYCHOSIS Last administered on 03/30/17 02:23; Start 02/02/17 at 15:45 Alprazolam (Xanax) 0.25 mg PRN Q2HR PRN PO ANXIETY / AGITATION Last administered on 02/13/17 16:33; Start 02/02/17 at 15:45; Stop 02/13/17 at 18:35 ; Status DC Docusate Sodium (Colace) 100 mg BID PO Last administered on 04/06/17 20:11; Start 02/02/17 at 21:00 Polyethylene Glycol (miraLAX) 17 gm DAILY PO Last administered on 04/06/17 09 :39; Start 02/03/17 at 09:00 Vitamin D (Vitamin D3) 50,000 unit WEEKLY PO Last administered on 03/31/17 08 :38; Start 02/10/17 at 09:00 Divalproex Sodium (Depakote Sprinkles) 125 mg TID@0900,1300,1700 PO Last administered on 02/06/17 16:46; Start 02/04/17 at 09:00; Stop 02/06/17 at 18:56 ; Status DC Divalproex Sodium (Depakote Sprinkles) 250 mg TID@0900,1300,1700 PO Last administered on 02/09/17 09:13; Start 02/07/17 at 09:00; Stop 02/09/17 at 13:03 ; Status DC Fluvoxamine Maleate (Luvox) 50 mg HS PO Last administered on 02/13/17 19:32; Start 02/06/17 at 21:00; Stop 02/14/17 at 18:51; Status DC Quetiapine Fumarate (SEROquel) 25 mg TID PO Last administered on 02/09/17 09: 16; Start 02/09/17 at 09:00; Stop 02/09/17 at 13:30; Status DC Divalproex Sodium (Depakote Sprinkles) 375 mg TID@0900,1300,1700 PO Last administered on 02/16/17 08:01; Start 02/09/17 at 13:00; Stop 02/16/17 at 19:13 ; Status DC Quetiapine Fumarate (SEROquel) 37.5 mg TID PO Last administered on 02/12/17 12 :55; Start 02/09/17 at 14:00; Stop 02/12/17 at 17:56; Status DC Olanzapine (ZyPREXA) 5 mg 1X ONCE PO Last administered on 02/12/17 11:57; Start 02/12/17 at 12:00; Stop 02/12/17 at 12:01; Status DC Quetiapine Fumarate (SEROquel) 50 mg TID PO Last administered on 02/19/17 13: 43; Start 02/12/17 at 21:00; Stop 02/19/17 at 18:29; Status DC Lorazepam (Ativan) 0.5 mg PRN Q2HR PRN PO ANXIETY / AGITATION Last administered on 04/05/17 00:11; Start 02/13/17 at 18:45 Lorazepam (Ativan) 0.5 mg BID PO Last administered on 02/16/17 08:04; Start at 21:00; Stop 02/17/17 at 17:37; Status DC Fluvoxamine Maleate (Luvox) 75 mg HS PO Last administered on 02/15/17 19:11; Start 02/14/17 at 21:00; Stop 02/16/17 at 22:01; Status DC Trazodone HCl (Desyrel) 12.5 mg TID PO Last administered on 02/14/17 19:39; Start 02/14/17 at 19:00; Stop 02/14/17 at 21:12; Status DC Trazodone HCl (Desyrel) 12.5 mg TIDWMEALS PO Last administered on 02/19/17 07: 57; Start 02/15/17 at 08:00; Stop 02/19/17 at 09:00; Status DC Fluvoxamine Maleate (Luvox) 100 mg HS PO Last administered on 02/27/17 19:14; Start 02/16/17 at 21:00; Stop 02/28/17 at 18:33; Status DC Lorazepam (Ativan) 0.25 mg BID PO Last administered on 02/18/17 20:06; Start 02/17/17 at 21:00; Stop 02/18/17 at 22:00; Status DC Trazodone HCl (Desyrel) 12.5 mg QID PO Last administered on 02/28/17 16:43; Start 02/19/17 at 09:00; Stop 02/28/17 at 18:19; Status DC Risperidone (RisperDAL) 0.125 mg TID@0900,1300,1700 PO Last administered on 17:31; Start 02/20/17 at 09:00; Stop 02/20/17 at 22:50; Status DC Mirtazapine (Remeron) 15 mg QHS PO Last administered on 03/13/17 20:15; Start 02/21/17 at 21:00; Stop 03/14/17 at 15:48; Status DC Trazodone HCl (Desyrel) 50 mg PRN QHS PRN PO INSOMNIA, MAY REPEAT X1 Last administered on 02/23/17 00:34; Start 02/20/17 at 22:45; Stop 02/23/17 at 10:59 ; Status DC Risperidone (RisperDAL) 0.25 mg TID@0900,1300,1700 PO Last administered on 02/24 17:20; Start 02/21/17 at 09:00; Stop 02/24/17 at 19:06; Status DC Trazodone HCl (Desyrel) 100 mg PRN QHS PRN PO INSOMNIA, MAY REPEAT X1 Last administered on 04/05/17 00:11; Start 02/23/17 at 11:15 Risperidone (RisperDAL) 0.375 mg TID@0900,1300,1700 PO Last administered on 16:26; Start 02/25/17 at 09:00; Stop 02/26/17 at 18:57; Status DC Carbamazepine (TEGretol) 200 mg QHS PO Last administered on 02/27/17 19:14; Start 02/24/17 at 21:00; Stop 02/28/17 at 18:19; Status DC Enoxaparin Sodium (Lovenox) 40 mg Q24H SQ Last administered on 03/11/17 11:55 ; Start 02/25/17 at 14:00; Stop 03/12/17 at 10:01; Status DC Cefpodoxime Proxetil (Vantin) 100 mg BID PO Last administered on 03/06/17 08: 37; Start 02/25/17 at 21:00; Stop 03/06/17 at 12:55; Status DC Risperidone (RisperDAL) 0.5 mg TID@0900,1300,1700 PO Last administered on 03/14 12:40; Start 02/27/17 at 09:00; Stop 03/14/17 at 15:48; Status DC Carbamazepine (TEGretol) 150 mg BID PO Last administered on 03/03/17 08:14; Start 02/28/17 at 21:00; Stop 03/03/17 at 18:20; Status DC Trazodone HCl (Desyrel) 25 mg TID@0900,1300,1700 PO Last administered on 17:34; Start 03/01/17 at 09:00; Stop 03/09/17 at 18:31; Status DC Fluvoxamine Maleate (Luvox) 150 mg HS PO Last administered on 03/20/17 19:25 ; Start 02/28/17 at 21:00; Stop 03/21/17 at 18:47; Status DC Hardesty Carbonate 300 mg QHS PO Last administered on 03/12/17 19:20; Start 03/02/17 at 21:00; Stop 03/13/17 at 14:53; Status DC Influenza Virus Vaccine Quadrival (Fluarix Quad 9516-9535 Syringe) 0.5 ml ONCE ONCE VAX IM Last administered on 03/04/17 09:57; Start 03/04/17 at 09:00; Stop 03/04/17 at 09:01; Status DC Hardesty Carbonate 150 mg DAILY PO Last administered on 03/13/17 09:52; Start 03/06/17 at 09:00; Stop 03/13/17 at 14:53; Status DC Hardesty Carbonate 75 mg DAILY PO Last administered on 03/13/17 09:51; Start 03/09/17 at 09:00; Stop 03/13/17 at 14:53; Status DC Trazodone HCl (Desyrel) 25 mg BID@1300,1700 PO Last administered on 03/10/17 17:19; Start 03/10/17 at 13:00; Stop 03/10/17 at 19:29; Status DC Trazodone HCl (Desyrel) 50 mg DAILY PO ; Start 03/10/17 at 09:00; Stop at 19:29; Status DC Magnesium Oxide (Magnesium Oxide) 400 mg DAILY PO Last administered on 09:39; Start 03/11/17 at 09:00 Trazodone HCl (Desyrel) 50 mg BID94 PO Last administered on 03/20/17 16:28; Start 03/11/17 at 09:00; Stop 03/20/17 at 18:59; Status DC Trazodone HCl (Desyrel) 25 mg DAILYWLUN PO Last administered on 03/20/17 13: 37; Start 03/11/17 at 12:00; Stop 03/20/17 at 18:59; Status DC Hydroxyzine Pamoate (Vistaril) 25 mg PRN Q6HRS PRN PO AGITATION Last administered on 04/05/17 03:13; Start 03/12/17 at 10:00 Enoxaparin Sodium (Lovenox) 40 mg Q24H SQ Last administered on 04/06/17 09:39 ; Start 03/13/17 at 09:00 Hardesty Carbonate 150 mg BID PO Last administered on 03/24/17 09:05; Start at 21:00; Stop 03/24/17 at 18:31; Status DC Mirtazapine (Remeron) 22.5 mg QHS PO Last administered on 04/06/17 20:11; Start 03/14/17 at 21:00 Risperidone (RisperDAL) 0.5 mg BID PO Last administered on 04/05/17 09:29; Start 03/14/17 at 21:00; Stop 04/05/17 at 18:55; Status DC Amoxicillin (Amoxil) 500 mg TID PO Last administered on 03/28/17 14:16; Start 03/17/17 at 19:30; Stop 03/28/17 at 17:05; Status DC Lactobacillus Acidophilus (Bacid, Kelly-Bid) 1 tab BID PO Last administered on 04/04/17 19:32; Start 03/17/17 at 19:30; Stop 04/05/17 at 14:35; Status DC Trazodone HCl (Desyrel) 50 mg TID@0900,1400,1600 PO Last administered on 16:04; Start 03/21/17 at 09:00; Stop 03/21/17 at 18:47; Status DC Fluvoxamine Maleate (Luvox) 175 mg HS PO Last administered on 03/23/17 19:27; Start 03/21/17 at 21:00; Stop 03/24/17 at 18:31; Status DC Trazodone HCl (Desyrel) 75 mg TID@0900,1600 PO Last administered on 03/23/17 17:10; Start 03/22/17 at 09:00; Stop 03/23/17 at 18:52; Status DC Trazodone HCl (Desyrel) 50 mg 1400 PO Last administered on 03/23/17 14:08; Start 03/22/17 at 14:00; Stop 03/23/17 at 18:52; Status DC Trazodone HCl (Desyrel) 100 mg TID@0900,1600 PO Last administered on 16:36; Start 03/24/17 at 09:00; Stop 04/04/17 at 18:29; Status DC Trazodone HCl (Desyrel) 75 mg DAILY@1400 PO Last administered on 04/02/17 14: 00; Start 03/24/17 at 14:00; Stop 04/04/17 at 18:29; Status DC Fluvoxamine Maleate (Luvox) 200 mg HS PO Last administered on 04/06/17 20:11 ; Start 03/24/17 at 21:00 Divalproex Sodium (Depakote Sprinkles) 250 mg BID PO Last administered on 09:35; Start 03/25/17 at 21:00; Stop 03/29/17 at 17:21; Status DC Divalproex Sodium (Depakote Sprinkles) 375 mg BID PO Last administered on 04/01 17:07; Start 03/29/17 at 21:00; Stop 04/01/17 at 18:31; Status DC Divalproex Sodium (Depakote Sprinkles) 500 mg BID PO Last administered on 04/06 20:10; Start 04/02/17 at 09:00 Clozapine (Clozaril) 25 mg HS PO Last administered on 04/04/17 19:35; Start 04/02/17 at 21:00; Stop 04/05/17 at 18:56; Status DC Trazodone HCl (Desyrel) 100 mg DAILY16 PO Last administered on 04/05/17 16:07 ; Start 04/05/17 at 16:00; Stop 04/05/17 at 18:57; Status DC Trazodone HCl (Desyrel) 75 mg DAILY PO Last administered on 04/05/17 09:37; Start 04/05/17 at 09:00; Stop 04/05/17 at 18:57; Status DC Trazodone HCl (Desyrel) 50 mg DAILY@1400 PO Last administered on 04/05/17 13: 56; Start 04/05/17 at 14:00; Stop 04/06/17 at 11:15; Status DC Lactobacillus Rhamnosus (Culturelle) 1 cap BID PO Last administered on 20:09; Start 04/05/17 at 21:00 Risperidone (RisperDAL) 0.25 mg BID PO Last administered on 04/06/17 20:10; Start 04/05/17 at 21:00 Clozapine (Clozaril) 50 mg HS PO Last administered on 04/06/17 20:10; Start 04/05/17 at 21:00 Trazodone HCl (Desyrel) 75 mg DAILY16 PO ; Start 04/06/17 at 16:00; Stop 04/06 at 16:00; Status DC Trazodone HCl (Desyrel) 50 mg DAILY PO Last administered on 04/06/17 09:53; Start 04/06/17 at 09:00; Stop 04/06/17 at 11:15; Status DC Active Scripts Active Reported Atorvastatin Calcium 40 Mg Tablet 40 Mg PO QHS Naproxen 500 Mg Tablet 500 Mg PO BID Lorazepam 0.5 Mg Tablet 0.5 Mg PO PRN Q4HRS PRN Seroquel (Quetiapine Fumarate) 25 Mg Tablet 25 Mg PO BID Zoloft (Sertraline Hcl) 100 Mg Tablet 100 Mg PO DAILY Levothyroxine Sodium 112 Mcg Tablet 112 Mcg PO DAILYAC Olanzapine 5 Mg Tablet 5 Mg PO HS Alprazolam 0.5 Mg Tablet 0.5 Mg PO BID I have reviewed the current psychotropics carefully including drug interactions. Risk benefit ratio favors no change other than as noted in my dictated progress note. Diagnosis: Problems: (1) Anxiety disorder (2) Bipolar 1 disorder, mixed, moderate (3) Dementia in Alzheimer's disease with delusions (4) Dementia in Alzheimer's disease with depression (5) Dementia, vascular, with depression (6) Dementia, vascular, with delusions (7) Impulse control disorder ELEANOR BILLS MD Apr 06, 2017 20:42
[2017-04-07] MEDS: hydrOXYzine PAMOATE 25 MG CAPSULE PO PRN (03:39)
[2017-04-07 06:10] VITALS: BP 135/71
[2017-04-07] MEDS: LEVOTHYROXINE 112 MCG TABLET PO SCH (06:19)
[2017-04-07] MEDS: DOCUSATE SODIUM 100 MG CAPSULE PO SCH ×2 (08:12→19:53)
[2017-04-07] MEDS: NAPROXEN 500 MG TABLET PO SCH ×2 (08:12→19:54)
[2017-04-07] MEDS: POLYETHYLENE GLYCOL 3350 17 GM PACKET. PO SCH (08:12)
[2017-04-07] MEDS: DIVALPROEX 125 MG CAP.SPRINK PO SCH ×2 (08:13→19:54)
[2017-04-07] MEDS: risperiDONE 0.25 MG TABLET. PO SCH ×2 (08:13→19:54)
[2017-04-07] MEDS: ENOXAPARIN 40 MG/0.4 ML DISP.SYRIN. SQ SCH (08:13)
[2017-04-07] MEDS: MAGNESIUM OXIDE 400 MG TABLET PO SCH (08:13)
[2017-04-07] MEDS: LACTOBACILLUS RHAMNOSUS GG 1 CAPSULE. PO SCH ×2 (08:13→19:54)
[2017-04-07] MEDS: CHOLECALCIFEROL (VITAMIN D3) 50,000 UNIT CAPSULE PO SCH ×2 (08:14→09:00)
[2017-04-07 16:23] VITALS: BP 147/66
[2017-04-07] MEDS: ATORVASTATIN CALCIUM 20 MG TABLET PO SCH (19:53)
[2017-04-07] MEDS: cloZAPine 25 MG TABLET PO SCH (19:54)
[2017-04-07] MEDS: MIRTAZAPINE 15 MG TABLET PO SCH (19:54)
--- NOTE | 2017-04-07 20:10 | PDOC ---
Exam Note: Jeanmarie Note: Please also refer to the separate dictated note~for this date of service dictated separately.~Patient seen individually. Discussed the patient with Nursing staff reviewed the chart.~Reviewed interim history and current functioning. Reviewed vital signs,~Labs/ Radiology~and current medications noted below. Continue current treatment with the changes noted in the dictated addendum note Assessment: Vital Signs: Vital Signs Date Time Temp Pulse Resp B/P (MAP) Pulse Ox O2 Delivery O2 Flow Rate FiO2 04/07/17 16:23 98.7 87 19 147/66 (93) 95 Room Air I&O Intake and Output 04/07/17 07:00 Intake Total 1160 ml Output Total 900 ml Balance 260 ml Intake Oral 1160 ml Output Urine Total 900 ml # Voids 2 # Bowel Movements 2 Current Medications: Meds: Current Medications Lorazepam (Ativan) 0.5 mg 1X ONCE PO Last administered on 02/01/17 19:14; Start 02/01/17 at 19:15; Stop 02/01/17 at 19:16; Status DC Ceftriaxone Sodium (Rocephin Im) 1 gm 1X ONCE IM Last administered on 20:45; Start 02/01/17 at 20:30; Stop 02/01/17 at 20:31; Status DC Acetaminophen (Tylenol) 650 mg PRN Q6HRS PRN PO MILD PAIN / TEMP Last administered on 03/08/17 09:20; Start 02/01/17 at 23:15 Multi-Ingredient Ointment (Analgesic [place]) 1 rosita PRN QID PRN TP MUSCLE PAIN; Start 02/01/17 at 23:15 Al Hydroxide/Mg Hydroxide (Mylanta Plus Xs) 15 ml PRN AFTMEALHC PRN PO DYSPEPSIA; Start 02/01/17 at 23:15 Magnesium Hydroxide (Milk Of Magnesia) 2,400 mg PRN QHS PRN PO CONSTIPATION Last administered on 02/13/17 02:05; Start 02/01/17 at 23:15 Olanzapine (ZyPREXA) 5 mg HS PO Last administered on 02/13/17 19:31; Start at 21:00; Stop 02/14/17 at 18:51; Status DC Quetiapine Fumarate (SEROquel) 25 mg BID PO Last administered on 02/08/17 08: 42; Start 02/02/17 at 09:00; Stop 02/08/17 at 19:16; Status DC Sertraline HCl (Zoloft) 100 mg DAILY PO Last administered on 02/06/17 08:01; Start 02/02/17 at 09:00; Stop 02/06/17 at 18:56; Status DC Olanzapine (ZyPREXA) 5 mg 1X ONCE PO Last administered on 02/02/17 00:27; Start 02/02/17 at 00:30; Stop 02/02/17 at 00:31; Status DC Alprazolam (Xanax) 0.5 mg BID PO Last administered on 02/13/17 11:42; Start at 09:00; Stop 02/13/17 at 18:35; Status DC Lorazepam (Ativan) 0.5 mg PRN Q4HRS PRN PO ANXIETY / AGITATION Last administered on 02/02/17 14:57; Start 02/02/17 at 00:15; Stop 02/02/17 at 15:59 ; Status DC Levothyroxine Sodium (Synthroid) 112 mcg DAILY06 PO Last administered on 06:19; Start 02/02/17 at 10:00 Naproxen (Naprosyn) 500 mg BID PO Last administered on 04/07/17 19:54; Start 02/02/17 at 09:00 Atorvastatin Calcium (Lipitor) 40 mg QHS PO Last administered on 04/07/17 19: 53; Start 02/02/17 at 21:00 Mirtazapine (Remeron) 7.5 mg QHS PO Last administered on 02/20/17 23:08; Start 02/02/17 at 21:00; Stop 02/21/17 at 19:38; Status DC Olanzapine (ZyPREXA ZYDIS) 2.5 mg PRN Q2HR PRN PO PSYCHOSIS Last administered on 03/30/17 02:23; Start 02/02/17 at 15:45 Alprazolam (Xanax) 0.25 mg PRN Q2HR PRN PO ANXIETY / AGITATION Last administered on 02/13/17 16:33; Start 02/02/17 at 15:45; Stop 02/13/17 at 18:35 ; Status DC Docusate Sodium (Colace) 100 mg BID PO Last administered on 04/07/17 19:53; Start 02/02/17 at 21:00 Polyethylene Glycol (miraLAX) 17 gm DAILY PO Last administered on 04/07/17 08 :12; Start 02/03/17 at 09:00 Vitamin D (Vitamin D3) 50,000 unit WEEKLY PO Last administered on 04/07/17 08 :14; Start 02/10/17 at 09:00 Divalproex Sodium (Depakote Sprinkles) 125 mg TID@0900,1300,1700 PO Last administered on 02/06/17 16:46; Start 02/04/17 at 09:00; Stop 02/06/17 at 18:56 ; Status DC Divalproex Sodium (Depakote Sprinkles) 250 mg TID@0900,1300,1700 PO Last administered on 02/09/17 09:13; Start 02/07/17 at 09:00; Stop 02/09/17 at 13:03 ; Status DC Fluvoxamine Maleate (Luvox) 50 mg HS PO Last administered on 02/13/17 19:32; Start 02/06/17 at 21:00; Stop 02/14/17 at 18:51; Status DC Quetiapine Fumarate (SEROquel) 25 mg TID PO Last administered on 02/09/17 09: 16; Start 02/09/17 at 09:00; Stop 02/09/17 at 13:30; Status DC Divalproex Sodium (Depakote Sprinkles) 375 mg TID@0900,1300,1700 PO Last administered on 02/16/17 08:01; Start 02/09/17 at 13:00; Stop 02/16/17 at 19:13 ; Status DC Quetiapine Fumarate (SEROquel) 37.5 mg TID PO Last administered on 02/12/17 12 :55; Start 02/09/17 at 14:00; Stop 02/12/17 at 17:56; Status DC Olanzapine (ZyPREXA) 5 mg 1X ONCE PO Last administered on 02/12/17 11:57; Start 02/12/17 at 12:00; Stop 02/12/17 at 12:01; Status DC Quetiapine Fumarate (SEROquel) 50 mg TID PO Last administered on 02/19/17 13: 43; Start 02/12/17 at 21:00; Stop 02/19/17 at 18:29; Status DC Lorazepam (Ativan) 0.5 mg PRN Q2HR PRN PO ANXIETY / AGITATION Last administered on 04/05/17 00:11; Start 02/13/17 at 18:45 Lorazepam (Ativan) 0.5 mg BID PO Last administered on 02/16/17 08:04; Start at 21:00; Stop 02/17/17 at 17:37; Status DC Fluvoxamine Maleate (Luvox) 75 mg HS PO Last administered on 02/15/17 19:11; Start 02/14/17 at 21:00; Stop 02/16/17 at 22:01; Status DC Trazodone HCl (Desyrel) 12.5 mg TID PO Last administered on 02/14/17 19:39; Start 02/14/17 at 19:00; Stop 02/14/17 at 21:12; Status DC Trazodone HCl (Desyrel) 12.5 mg TIDWMEALS PO Last administered on 02/19/17 07: 57; Start 02/15/17 at 08:00; Stop 02/19/17 at 09:00; Status DC Fluvoxamine Maleate (Luvox) 100 mg HS PO Last administered on 02/27/17 19:14; Start 02/16/17 at 21:00; Stop 02/28/17 at 18:33; Status DC Lorazepam (Ativan) 0.25 mg BID PO Last administered on 02/18/17 20:06; Start 02/17/17 at 21:00; Stop 02/18/17 at 22:00; Status DC Trazodone HCl (Desyrel) 12.5 mg QID PO Last administered on 02/28/17 16:43; Start 02/19/17 at 09:00; Stop 02/28/17 at 18:19; Status DC Risperidone (RisperDAL) 0.125 mg TID@0900,1300,1700 PO Last administered on 17:31; Start 02/20/17 at 09:00; Stop 02/20/17 at 22:50; Status DC Mirtazapine (Remeron) 15 mg QHS PO Last administered on 03/13/17 20:15; Start 02/21/17 at 21:00; Stop 03/14/17 at 15:48; Status DC Trazodone HCl (Desyrel) 50 mg PRN QHS PRN PO INSOMNIA, SEPTEMBER REPEAT X1 Last administered on 02/23/17 00:34; Start 02/20/17 at 22:45; Stop 02/23/17 at 10:59 ; Status DC Risperidone (RisperDAL) 0.25 mg TID@0900,1300,1700 PO Last administered on 02/24 17:20; Start 02/21/17 at 09:00; Stop 02/24/17 at 19:06; Status DC Trazodone HCl (Desyrel) 100 mg PRN QHS PRN PO INSOMNIA, SEPTEMBER REPEAT X1 Last administered on 04/05/17 00:11; Start 02/23/17 at 11:15 Risperidone (RisperDAL) 0.375 mg TID@0900,1300,1700 PO Last administered on 16:26; Start 02/25/17 at 09:00; Stop 02/26/17 at 18:57; Status DC Carbamazepine (TEGretol) 200 mg QHS PO Last administered on 02/27/17 19:14; Start 02/24/17 at 21:00; Stop 02/28/17 at 18:19; Status DC Enoxaparin Sodium (Lovenox) 40 mg Q24H SQ Last administered on 03/11/17 11:55 ; Start 02/25/17 at 14:00; Stop 03/12/17 at 10:01; Status DC Cefpodoxime Proxetil (Vantin) 100 mg BID PO Last administered on 03/06/17 08: 37; Start 02/25/17 at 21:00; Stop 03/06/17 at 12:55; Status DC Risperidone (RisperDAL) 0.5 mg TID@0900,1300,1700 PO Last administered on 03/14 12:40; Start 02/27/17 at 09:00; Stop 03/14/17 at 15:48; Status DC Carbamazepine (TEGretol) 150 mg BID PO Last administered on 03/03/17 08:14; Start 02/28/17 at 21:00; Stop 03/03/17 at 18:20; Status DC Trazodone HCl (Desyrel) 25 mg TID@0900,1300,1700 PO Last administered on 17:34; Start 03/01/17 at 09:00; Stop 03/09/17 at 18:31; Status DC Fluvoxamine Maleate (Luvox) 150 mg HS PO Last administered on 03/20/17 19:25 ; Start 02/28/17 at 21:00; Stop 03/21/17 at 18:47; Status DC [place] Carbonate 300 mg QHS PO Last administered on 03/12/17 19:20; Start 03/02/17 at 21:00; Stop 03/13/17 at 14:53; Status DC Influenza Virus Vaccine Quadrival (Fluarix Quad 2934-0537 Syringe) 0.5 ml ONCE ONCE VAX IM Last administered on 03/04/17 09:57; Start 03/04/17 at 09:00; Stop 03/04/17 at 09:01; Status DC [place] Carbonate 150 mg DAILY PO Last administered on 03/13/17 09:52; Start 03/06/17 at 09:00; Stop 03/13/17 at 14:53; Status DC [place] Carbonate 75 mg DAILY PO Last administered on 03/13/17 09:51; Start 03/09/17 at 09:00; Stop 03/13/17 at 14:53; Status DC Trazodone HCl (Desyrel) 25 mg BID@1300,1700 PO Last administered on 03/10/17 17:19; Start 03/10/17 at 13:00; Stop 03/10/17 at 19:29; Status DC Trazodone HCl (Desyrel) 50 mg DAILY PO ; Start 03/10/17 at 09:00; Stop at 19:29; Status DC Magnesium Oxide (Magnesium Oxide) 400 mg DAILY PO Last administered on 08:13; Start 03/11/17 at 09:00 Trazodone HCl (Desyrel) 50 mg BID94 PO Last administered on 03/20/17 16:28; Start 03/11/17 at 09:00; Stop 03/20/17 at 18:59; Status DC Trazodone HCl (Desyrel) 25 mg DAILYWLUN PO Last administered on 03/20/17 13: 37; Start 03/11/17 at 12:00; Stop 03/20/17 at 18:59; Status DC Hydroxyzine Pamoate (Vistaril) 25 mg PRN Q6HRS PRN PO AGITATION Last administered on 04/07/17 03:39; Start 03/12/17 at 10:00 Enoxaparin Sodium (Lovenox) 40 mg Q24H SQ Last administered on 04/07/17 08:13 ; Start 03/13/17 at 09:00 [place] Carbonate 150 mg BID PO Last administered on 03/24/17 09:05; Start at 21:00; Stop 03/24/17 at 18:31; Status DC Mirtazapine (Remeron) 22.5 mg QHS PO Last administered on 04/07/17 19:54; Start 03/14/17 at 21:00 Risperidone (RisperDAL) 0.5 mg BID PO Last administered on 04/05/17 09:29; Start 03/14/17 at 21:00; Stop 04/05/17 at 18:55; Status DC Amoxicillin (Amoxil) 500 mg TID PO Last administered on 03/28/17 14:16; Start 03/17/17 at 19:30; Stop 03/28/17 at 17:05; Status DC Lactobacillus Acidophilus (Bacid, Kelly-Bid) 1 tab BID PO Last administered on 04/04/17 19:32; Start 03/17/17 at 19:30; Stop 04/05/17 at 14:35; Status DC Trazodone HCl (Desyrel) 50 mg TID@0900,1400,1600 PO Last administered on 16:04; Start 03/21/17 at 09:00; Stop 03/21/17 at 18:47; Status DC Fluvoxamine Maleate (Luvox) 175 mg HS PO Last administered on 03/23/17 19:27; Start 03/21/17 at 21:00; Stop 03/24/17 at 18:31; Status DC Trazodone HCl (Desyrel) 75 mg TID@0900,1600 PO Last administered on 03/23/17 17:10; Start 03/22/17 at 09:00; Stop 03/23/17 at 18:52; Status DC Trazodone HCl (Desyrel) 50 mg 1400 PO Last administered on 03/23/17 14:08; Start 03/22/17 at 14:00; Stop 03/23/17 at 18:52; Status DC Trazodone HCl (Desyrel) 100 mg TID@0900,1600 PO Last administered on 16:36; Start 03/24/17 at 09:00; Stop 04/04/17 at 18:29; Status DC Trazodone HCl (Desyrel) 75 mg DAILY@1400 PO Last administered on 04/02/17 14: 00; Start 03/24/17 at 14:00; Stop 04/04/17 at 18:29; Status DC Fluvoxamine Maleate (Luvox) 200 mg HS PO Last administered on 04/07/17 19:54 ; Start 03/24/17 at 21:00 Divalproex Sodium (Depakote Sprinkles) 250 mg BID PO Last administered on 09:35; Start 03/25/17 at 21:00; Stop 03/29/17 at 17:21; Status DC Divalproex Sodium (Depakote Sprinkles) 375 mg BID PO Last administered on 04/01 17:07; Start 03/29/17 at 21:00; Stop 04/01/17 at 18:31; Status DC Divalproex Sodium (Depakote Sprinkles) 500 mg BID PO Last administered on 04/07 19:54; Start 04/02/17 at 09:00 Clozapine (Clozaril) 25 mg HS PO Last administered on 04/04/17 19:35; Start 04/02/17 at 21:00; Stop 04/05/17 at 18:56; Status DC Trazodone HCl (Desyrel) 100 mg DAILY16 PO Last administered on 04/05/17 16:07 ; Start 04/05/17 at 16:00; Stop 04/05/17 at 18:57; Status DC Trazodone HCl (Desyrel) 75 mg DAILY PO Last administered on 04/05/17 09:37; Start 04/05/17 at 09:00; Stop 04/05/17 at 18:57; Status DC Trazodone HCl (Desyrel) 50 mg DAILY@1400 PO Last administered on 04/05/17 13: 56; Start 04/05/17 at 14:00; Stop 04/06/17 at 11:15; Status DC Lactobacillus Rhamnosus (Culturelle) 1 cap BID PO Last administered on 19:54; Start 04/05/17 at 21:00 Risperidone (RisperDAL) 0.25 mg BID PO Last administered on 04/07/17 19:54; Start 04/05/17 at 21:00 Clozapine (Clozaril) 50 mg HS PO Last administered on 04/07/17 19:54; Start 04/05/17 at 21:00 Trazodone HCl (Desyrel) 75 mg DAILY16 PO ; Start 04/06/17 at 16:00; Stop 04/06 at 16:00; Status DC Trazodone HCl (Desyrel) 50 mg DAILY PO Last administered on 04/06/17 09:53; Start 04/06/17 at 09:00; Stop 04/06/17 at 11:15; Status DC Active Scripts Active Reported Atorvastatin Calcium 40 Mg Tablet 40 Mg PO QHS Naproxen 500 Mg Tablet 500 Mg PO BID Lorazepam 0.5 Mg Tablet 0.5 Mg PO PRN Q4HRS PRN Seroquel (Quetiapine Fumarate) 25 Mg Tablet 25 Mg PO BID Zoloft (Sertraline Hcl) 100 Mg Tablet 100 Mg PO DAILY Levothyroxine Sodium 112 Mcg Tablet 112 Mcg PO DAILYAC Olanzapine 5 Mg Tablet 5 Mg PO HS Alprazolam 0.5 Mg Tablet 0.5 Mg PO BID I have reviewed the current psychotropics carefully including drug interactions. Risk benefit ratio favors no change other than as noted in my dictated progress note. Diagnosis: Problems: (1) Anxiety disorder (2) Bipolar 1 disorder, mixed, moderate (3) Dementia in Alzheimer's disease with delusions (4) Dementia in Alzheimer's disease with depression (5) Dementia, vascular, with depression (6) Dementia, vascular, with delusions (7) Impulse control disorder ELEANOR BILLS MD Apr 07, 2017 20:10
[2017-04-08] MEDS: traZODone 100 MG TABLET. PO PRN ×2 (01:31→19:38)
[2017-04-08 05:58] VITALS: BP 149/86
[2017-04-08] MEDS: LEVOTHYROXINE 112 MCG TABLET PO SCH (06:01)
--- NOTE | 2017-04-08 07:13 | PN ---
DATE: 04/05/2017 This late entry, 04/05/2017, covers elements not covered in my initial order note of 04/05/2017. SUBJECTIVE: I met with the patient the evening of 04/05/2017. The patient slept just 2 hours previous evening. Quite sedated during the day at times having swallowing problems. Previous evening, she was agitated, received Vistaril 1935 and 3:30 a.m., repeat trazodone and Ativan, wearing heel protectors and had a straight catheterization for urinary retention, somewhat weak. REVIEW OF SYSTEMS: Ambulation impaired, in Broda chair. No CV, , pulmonary, eye, ENT system symptoms on review. Reliability poor. MENTAL STATUS EXAM: Oriented to herself. Insight, judgment, recent and remote memory, attention, concentration, fund of knowledge poor, consistent with her diagnosis mentioned in my initial note. PLAN: Taper the daytime trazodone 100 mg at 1600 down to 75 mg. Increase Clozaril to 50 mg p.o. at bedtime. Absolute neutrophil count is unremarkable. Risperdal is 0.5 mg b.i.d. We will reduce it to 0.25 mg b.i.d. Trazodone at 0900 is 75 mg, we will reduce it to 50 mg. Rest unchanged from initial note. May stop the daytime trazodone completely if sedation persists as she is getting slowly dehydrated. MAN Aden BILLS MD DR: [email or web address]/meli JOB#: [id number] / [id number]
[2017-04-08 07:18] LABS: BASO % 0 % (0-3); EOS # 0.2 x10^3/uL (0.0-0.7); EOS % 1 % (0-3); HEMOGLOBIN 13.9 g/dL (12.0-15.5); LYMPH # 0.6 x10^3/uL (1.0-4.8); LYMPH % 5 % (24-48); MEAN CORPUSCULAR HEMOGLOBIN 31 pg (25-35); MEAN CORPUSCULAR HGB CONC 34 g/dL (31-37); MEAN CORPUSCULAR VOLUME 91 fL (79-100); MONO # 0.7 x10^3/uL (0.0-1.1); MONO % 5 % (0-9); NEUT # 11.9 x10^3uL (1.8-7.7); NEUT % 88 % (31-73); PLATELET COUNT 209 x10^3/uL (140-400); RED BLOOD COUNT 4.51 x10^6/uL (3.50-5.40); RED CELL DISTRIBUTION WIDTH 14.9 % (11.5-14.5); WHITE BLOOD COUNT 13.4 x10^3/uL (4.0-11.0)
[2017-04-08 07:47] LABS: ALBUMIN/GLOBULIN RATIO 1.1 (1.0-1.7); CALCIUM 8.3 mg/dL (8.5-10.1); CREATININE 0.7 mg/dL (0.6-1.0); GFR 83.5; POTASSIUM 3.4 mmol/L (3.5-5.1); TOTAL BILIRUBIN 0.2 mg/dL (0.2-1.0); TOTAL PROTEIN 5.7 g/dL (6.4-8.2)
[2017-04-08] MEDS: NAPROXEN 500 MG TABLET PO SCH ×2 (08:06→19:35)
[2017-04-08] MEDS: DOCUSATE SODIUM 100 MG CAPSULE PO SCH ×2 (08:06→19:34)
[2017-04-08] MEDS: risperiDONE 0.25 MG TABLET. PO SCH ×2 (08:06→19:35)
[2017-04-08] MEDS: DIVALPROEX 125 MG CAP.SPRINK PO SCH ×2 (08:06→19:36)
[2017-04-08] MEDS: POLYETHYLENE GLYCOL 3350 17 GM PACKET. PO SCH (08:06)
[2017-04-08] MEDS: LACTOBACILLUS RHAMNOSUS GG 1 CAPSULE. PO SCH ×2 (08:06→19:34)
[2017-04-08] MEDS: MAGNESIUM OXIDE 400 MG TABLET PO SCH (08:07)
[2017-04-08] MEDS: ENOXAPARIN 40 MG/0.4 ML DISP.SYRIN. SQ SCH (08:08)
[2017-04-08 09:05] LABS: % BANDS 11 % (0-9); % EOS 1 % (0-5); % LYMPHS 9 % (24-48); % MONOS 6 % (0-10); % SEGS 73 % (35-66); PLT ESTIMATE ADEQUATE (ADEQUATE)
--- NOTE | 2017-04-08 15:28 | RAD ---
AP PORTABLE CHEST Clinical Indication: lungs coarse. Cough Comparison: AP chest 02/25/2017. Findings: The cardiomediastinal silhouette is normal. Atherosclerotic aortic arch. There is left basilar retrocardiac airspace disease. There is no pneumothorax. No pleural effusion is appreciated. There is no acute bone abnormality. IMPRESSION: Mild left basilar retrocardiac airspace disease.
[2017-04-08 16:05] VITALS: BP 160/82
[2017-04-08] MEDS: cloZAPine 25 MG TABLET PO SCH (19:34)
[2017-04-08] MEDS: ATORVASTATIN CALCIUM 20 MG TABLET PO SCH (19:34)
[2017-04-08] MEDS: MIRTAZAPINE 15 MG TABLET PO SCH (19:35)
[2017-04-08] MEDS: hydrOXYzine PAMOATE 25 MG CAPSULE PO PRN (19:38)
--- NOTE | 2017-04-08 21:21 | PDOC ---
Exam Note: Jeanmarie Note: Please also refer to the separate dictated note~for this date of service dictated separately.~Patient seen individually. Discussed the patient with Nursing staff reviewed the chart.~Reviewed interim history and current functioning. Reviewed vital signs,~Labs/ Radiology~and current medications noted below. Continue current treatment with the changes noted in the dictated addendum note Assessment: Vital Signs: Vital Signs Date Time Temp Pulse Resp B/P (MAP) Pulse Ox O2 Delivery O2 Flow Rate FiO2 04/08/17 16:05 98.1 75 18 160/82 (108) 98 04/07/17 16:23 Room Air I&O Intake and Output 04/08/17 07:00 Intake Total 1440 ml Balance 1440 ml Intake Oral 1440 ml # Bowel Movements 3 Labs: Laboratory Tests Test 04/08/17 06:46 04/08/17 18:55 White Blood Count 13.4 x10^3/uL (4.0-11.0) #H Red Blood Count 4.51 x10^6/uL (3.50-5.40) Hemoglobin 13.9 g/dL (12.0-15.5) Hematocrit 41.0 % (36.0-47.0) Mean Corpuscular Volume 91 fL (79-100) Mean Corpuscular Hemoglobin 31 pg (25-35) Mean Corpuscular Hemoglobin Concent 34 g/dL (31-37) Red Cell Distribution Width 14.9 % (11.5-14.5) H Platelet Count 209 x10^3/uL (140-400) Neutrophils (%) (Auto) 88 % (31-73) H Lymphocytes (%) (Auto) 5 % (24-48) L Monocytes (%) (Auto) 5 % (0-9) Eosinophils (%) (Auto) 1 % (0-3) Basophils (%) (Auto) 0 % (0-3) Neutrophils # (Auto) 11.9 x10^3uL (1.8-7.7) H Lymphocytes # (Auto) 0.6 x10^3/uL (1.0-4.8) L Monocytes # (Auto) 0.7 x10^3/uL (0.0-1.1) Eosinophils # (Auto) 0.2 x10^3/uL (0.0-0.7) Basophils # (Auto) 0.0 x10^3/uL (0.0-0.2) Segmented Neutrophils % 73 % (35-66) H Band Neutrophils % 11 % (0-9) H Lymphocytes % 9 % (24-48) L Monocytes % 6 % (0-10) Eosinophils % 1 % (0-5) Platelet Estimate Adequate (ADEQUATE) Sodium Level 144 mmol/L (136-145) Potassium Level 3.4 mmol/L (3.5-5.1) L Chloride Level 109 mmol/L (98-107) H Carbon Dioxide Level 26 mmol/L (21-32) Anion Gap 9 (6-14) Blood Urea Nitrogen 17 mg/dL (7-20) Creatinine 0.7 mg/dL (0.6-1.0) Estimated GFR (Cockcroft-Gault) 83.5 BUN/Creatinine Ratio 24 (6-20) H Glucose Level 118 mg/dL (70-99) H Calcium Level 8.3 mg/dL (8.5-10.1) L Total Bilirubin 0.2 mg/dL (0.2-1.0) Aspartate Amino Transferase (AST) 23 U/L (15-37) Alanine Aminotransferase (ALT) 36 U/L (14-59) Alkaline Phosphatase 89 U/L (46-116) Total Protein 5.7 g/dL (6.4-8.2) L Albumin 3.0 g/dL (3.4-5.0) L Albumin/Globulin Ratio 1.1 (1.0-1.7) Lactic Acid Level 1.8 mmol/L (0.4-2.0) Current Medications: Meds: Current Medications Lorazepam (Ativan) 0.5 mg 1X ONCE PO Last administered on 02/01/17 19:14; Start 02/01/17 at 19:15; Stop 02/01/17 at 19:16; Status DC Ceftriaxone Sodium (Rocephin Im) 1 gm 1X ONCE IM Last administered on 20:45; Start 02/01/17 at 20:30; Stop 02/01/17 at 20:31; Status DC Acetaminophen (Tylenol) 650 mg PRN Q6HRS PRN PO MILD PAIN / TEMP Last administered on 03/08/17 09:20; Start 02/01/17 at 23:15 Multi-Ingredient Ointment (Analgesic [place]) 1 rosita PRN QID PRN TP MUSCLE PAIN; Start 02/01/17 at 23:15 Al Hydroxide/Mg Hydroxide (Mylanta Plus Xs) 15 ml PRN AFTMEALHC PRN PO DYSPEPSIA; Start 02/01/17 at 23:15 Magnesium Hydroxide (Milk Of Magnesia) 2,400 mg PRN QHS PRN PO CONSTIPATION Last administered on 02/13/17 02:05; Start 02/01/17 at 23:15 Olanzapine (ZyPREXA) 5 mg HS PO Last administered on 02/13/17 19:31; Start at 21:00; Stop 02/14/17 at 18:51; Status DC Quetiapine Fumarate (SEROquel) 25 mg BID PO Last administered on 02/08/17 08: 42; Start 02/02/17 at 09:00; Stop 02/08/17 at 19:16; Status DC Sertraline HCl (Zoloft) 100 mg DAILY PO Last administered on 02/06/17 08:01; Start 02/02/17 at 09:00; Stop 02/06/17 at 18:56; Status DC Olanzapine (ZyPREXA) 5 mg 1X ONCE PO Last administered on 02/02/17 00:27; Start 02/02/17 at 00:30; Stop 02/02/17 at 00:31; Status DC Alprazolam (Xanax) 0.5 mg BID PO Last administered on 02/13/17 11:42; Start at 09:00; Stop 02/13/17 at 18:35; Status DC Lorazepam (Ativan) 0.5 mg PRN Q4HRS PRN PO ANXIETY / AGITATION Last administered on 02/02/17 14:57; Start 02/02/17 at 00:15; Stop 02/02/17 at 15:59 ; Status DC Levothyroxine Sodium (Synthroid) 112 mcg DAILY06 PO Last administered on 06:01; Start 02/02/17 at 10:00 Naproxen (Naprosyn) 500 mg BID PO Last administered on 04/08/17 19:35; Start 02/02/17 at 09:00 Atorvastatin Calcium (Lipitor) 40 mg QHS PO Last administered on 04/08/17 19: 34; Start 02/02/17 at 21:00 Mirtazapine (Remeron) 7.5 mg QHS PO Last administered on 02/20/17 23:08; Start 02/02/17 at 21:00; Stop 02/21/17 at 19:38; Status DC Olanzapine (ZyPREXA ZYDIS) 2.5 mg PRN Q2HR PRN PO PSYCHOSIS Last administered on 03/30/17 02:23; Start 02/02/17 at 15:45 Alprazolam (Xanax) 0.25 mg PRN Q2HR PRN PO ANXIETY / AGITATION Last administered on 02/13/17 16:33; Start 02/02/17 at 15:45; Stop 02/13/17 at 18:35 ; Status DC Docusate Sodium (Colace) 100 mg BID PO Last administered on 04/08/17 19:34; Start 02/02/17 at 21:00 Polyethylene Glycol (miraLAX) 17 gm DAILY PO Last administered on 04/08/17 08 :06; Start 02/03/17 at 09:00 Vitamin D (Vitamin D3) 50,000 unit WEEKLY PO Last administered on 04/07/17 08 :14; Start 02/10/17 at 09:00 Divalproex Sodium (Depakote Sprinkles) 125 mg TID@0900,1300,1700 PO Last administered on 02/06/17 16:46; Start 02/04/17 at 09:00; Stop 02/06/17 at 18:56 ; Status DC Divalproex Sodium (Depakote Sprinkles) 250 mg TID@0900,1300,1700 PO Last administered on 02/09/17 09:13; Start 02/07/17 at 09:00; Stop 02/09/17 at 13:03 ; Status DC Fluvoxamine Maleate (Luvox) 50 mg HS PO Last administered on 02/13/17 19:32; Start 02/06/17 at 21:00; Stop 02/14/17 at 18:51; Status DC Quetiapine Fumarate (SEROquel) 25 mg TID PO Last administered on 02/09/17 09: 16; Start 02/09/17 at 09:00; Stop 02/09/17 at 13:30; Status DC Divalproex Sodium (Depakote Sprinkles) 375 mg TID@0900,1300,1700 PO Last administered on 02/16/17 08:01; Start 02/09/17 at 13:00; Stop 02/16/17 at 19:13 ; Status DC Quetiapine Fumarate (SEROquel) 37.5 mg TID PO Last administered on 02/12/17 12 :55; Start 02/09/17 at 14:00; Stop 02/12/17 at 17:56; Status DC Olanzapine (ZyPREXA) 5 mg 1X ONCE PO Last administered on 02/12/17 11:57; Start 02/12/17 at 12:00; Stop 02/12/17 at 12:01; Status DC Quetiapine Fumarate (SEROquel) 50 mg TID PO Last administered on 02/19/17 13: 43; Start 02/12/17 at 21:00; Stop 02/19/17 at 18:29; Status DC Lorazepam (Ativan) 0.5 mg PRN Q2HR PRN PO ANXIETY / AGITATION Last administered on 04/05/17 00:11; Start 02/13/17 at 18:45 Lorazepam (Ativan) 0.5 mg BID PO Last administered on 02/16/17 08:04; Start at 21:00; Stop 02/17/17 at 17:37; Status DC Fluvoxamine Maleate (Luvox) 75 mg HS PO Last administered on 02/15/17 19:11; Start 02/14/17 at 21:00; Stop 02/16/17 at 22:01; Status DC Trazodone HCl (Desyrel) 12.5 mg TID PO Last administered on 02/14/17 19:39; Start 02/14/17 at 19:00; Stop 02/14/17 at 21:12; Status DC Trazodone HCl (Desyrel) 12.5 mg TIDWMEALS PO Last administered on 02/19/17 07: 57; Start 02/15/17 at 08:00; Stop 02/19/17 at 09:00; Status DC Fluvoxamine Maleate (Luvox) 100 mg HS PO Last administered on 02/27/17 19:14; Start 02/16/17 at 21:00; Stop 02/28/17 at 18:33; Status DC Lorazepam (Ativan) 0.25 mg BID PO Last administered on 02/18/17 20:06; Start 02/17/17 at 21:00; Stop 02/18/17 at 22:00; Status DC Trazodone HCl (Desyrel) 12.5 mg QID PO Last administered on 02/28/17 16:43; Start 02/19/17 at 09:00; Stop 02/28/17 at 18:19; Status DC Risperidone (RisperDAL) 0.125 mg TID@0900,1300,1700 PO Last administered on 17:31; Start 02/20/17 at 09:00; Stop 02/20/17 at 22:50; Status DC Mirtazapine (Remeron) 15 mg QHS PO Last administered on 03/13/17 20:15; Start 02/21/17 at 21:00; Stop 03/14/17 at 15:48; Status DC Trazodone HCl (Desyrel) 50 mg PRN QHS PRN PO INSOMNIA, MAY REPEAT X1 Last administered on 02/23/17 00:34; Start 02/20/17 at 22:45; Stop 02/23/17 at 10:59 ; Status DC Risperidone (RisperDAL) 0.25 mg TID@0900,1300,1700 PO Last administered on 02/24 17:20; Start 02/21/17 at 09:00; Stop 02/24/17 at 19:06; Status DC Trazodone HCl (Desyrel) 100 mg PRN QHS PRN PO INSOMNIA, MAY REPEAT X1 Last administered on 04/08/17 19:38; Start 02/23/17 at 11:15 Risperidone (RisperDAL) 0.375 mg TID@0900,1300,1700 PO Last administered on 16:26; Start 02/25/17 at 09:00; Stop 02/26/17 at 18:57; Status DC Carbamazepine (TEGretol) 200 mg QHS PO Last administered on 02/27/17 19:14; Start 02/24/17 at 21:00; Stop 02/28/17 at 18:19; Status DC Enoxaparin Sodium (Lovenox) 40 mg Q24H SQ Last administered on 03/11/17 11:55 ; Start 02/25/17 at 14:00; Stop 03/12/17 at 10:01; Status DC Cefpodoxime Proxetil (Vantin) 100 mg BID PO Last administered on 03/06/17 08: 37; Start 02/25/17 at 21:00; Stop 03/06/17 at 12:55; Status DC Risperidone (RisperDAL) 0.5 mg TID@0900,1300,1700 PO Last administered on 03/14 12:40; Start 02/27/17 at 09:00; Stop 03/14/17 at 15:48; Status DC Carbamazepine (TEGretol) 150 mg BID PO Last administered on 03/03/17 08:14; Start 02/28/17 at 21:00; Stop 03/03/17 at 18:20; Status DC Trazodone HCl (Desyrel) 25 mg TID@0900,1300,1700 PO Last administered on 17:34; Start 03/01/17 at 09:00; Stop 03/09/17 at 18:31; Status DC Fluvoxamine Maleate (Luvox) 150 mg HS PO Last administered on 03/20/17 19:25 ; Start 02/28/17 at 21:00; Stop 03/21/17 at 18:47; Status DC [place] Carbonate 300 mg QHS PO Last administered on 03/12/17 19:20; Start 03/02/17 at 21:00; Stop 03/13/17 at 14:53; Status DC Influenza Virus Vaccine Quadrival (Fluarix Quad [id number] Syringe) 0.5 ml ONCE ONCE VAX IM Last administered on 03/04/17 09:57; Start 03/04/17 at 09:00; Stop 03/04/17 at 09:01; Status DC [place] Carbonate 150 mg DAILY PO Last administered on 03/13/17 09:52; Start 03/06/17 at 09:00; Stop 03/13/17 at 14:53; Status DC [place] Carbonate 75 mg DAILY PO Last administered on 03/13/17 09:51; Start 03/09/17 at 09:00; Stop 03/13/17 at 14:53; Status DC Trazodone HCl (Desyrel) 25 mg BID@1300,1700 PO Last administered on 03/10/17 17:19; Start 03/10/17 at 13:00; Stop 03/10/17 at 19:29; Status DC Trazodone HCl (Desyrel) 50 mg DAILY PO ; Start 03/10/17 at 09:00; Stop at 19:29; Status DC Magnesium Oxide (Magnesium Oxide) 400 mg DAILY PO Last administered on 08:07; Start 03/11/17 at 09:00 Trazodone HCl (Desyrel) 50 mg BID94 PO Last administered on 03/20/17 16:28; Start 03/11/17 at 09:00; Stop 03/20/17 at 18:59; Status DC Trazodone HCl (Desyrel) 25 mg DAILYWLUN PO Last administered on 03/20/17 13: 37; Start 03/11/17 at 12:00; Stop 03/20/17 at 18:59; Status DC Hydroxyzine Pamoate (Vistaril) 25 mg PRN Q6HRS PRN PO AGITATION Last administered on 04/08/17 19:38; Start 03/12/17 at 10:00 Enoxaparin Sodium (Lovenox) 40 mg Q24H SQ Last administered on 04/08/17 08:08 ; Start 03/13/17 at 09:00 [place] Carbonate 150 mg BID PO Last administered on 03/24/17 09:05; Start at 21:00; Stop 03/24/17 at 18:31; Status DC Mirtazapine (Remeron) 22.5 mg QHS PO Last administered on 04/08/17 19:35; Start 03/14/17 at 21:00 Risperidone (RisperDAL) 0.5 mg BID PO Last administered on 04/05/17 09:29; Start 03/14/17 at 21:00; Stop 04/05/17 at 18:55; Status DC Amoxicillin (Amoxil) 500 mg TID PO Last administered on 03/28/17 14:16; Start 03/17/17 at 19:30; Stop 03/28/17 at 17:05; Status DC Lactobacillus Acidophilus (Bacid, Kelly-Bid) 1 tab BID PO Last administered on 04/04/17 19:32; Start 03/17/17 at 19:30; Stop 04/05/17 at 14:35; Status DC Trazodone HCl (Desyrel) 50 mg TID@0900,1400,1600 PO Last administered on 16:04; Start 03/21/17 at 09:00; Stop 03/21/17 at 18:47; Status DC Fluvoxamine Maleate (Luvox) 175 mg HS PO Last administered on 03/23/17 19:27; Start 03/21/17 at 21:00; Stop 03/24/17 at 18:31; Status DC Trazodone HCl (Desyrel) 75 mg TID@0900,1600 PO Last administered on 03/23/17 17:10; Start 03/22/17 at 09:00; Stop 03/23/17 at 18:52; Status DC Trazodone HCl (Desyrel) 50 mg 1400 PO Last administered on 03/23/17 14:08; Start 03/22/17 at 14:00; Stop 03/23/17 at 18:52; Status DC Trazodone HCl (Desyrel) 100 mg TID@0900,1600 PO Last administered on 16:36; Start 03/24/17 at 09:00; Stop 04/04/17 at 18:29; Status DC Trazodone HCl (Desyrel) 75 mg DAILY@1400 PO Last administered on 04/02/17 14: 00; Start 03/24/17 at 14:00; Stop 04/04/17 at 18:29; Status DC Fluvoxamine Maleate (Luvox) 200 mg HS PO Last administered on 04/08/17 19:35 ; Start 03/24/17 at 21:00 Divalproex Sodium (Depakote Sprinkles) 250 mg BID PO Last administered on 09:35; Start 03/25/17 at 21:00; Stop 03/29/17 at 17:21; Status DC Divalproex Sodium (Depakote Sprinkles) 375 mg BID PO Last administered on 04/01 17:07; Start 03/29/17 at 21:00; Stop 04/01/17 at 18:31; Status DC Divalproex Sodium (Depakote Sprinkles) 500 mg BID PO Last administered on 04/08 19:36; Start 04/02/17 at 09:00 Clozapine (Clozaril) 25 mg HS PO Last administered on 04/04/17 19:35; Start 04/02/17 at 21:00; Stop 04/05/17 at 18:56; Status DC Trazodone HCl (Desyrel) 100 mg DAILY16 PO Last administered on 04/05/17 16:07 ; Start 04/05/17 at 16:00; Stop 04/05/17 at 18:57; Status DC Trazodone HCl (Desyrel) 75 mg DAILY PO Last administered on 04/05/17 09:37; Start 04/05/17 at 09:00; Stop 04/05/17 at 18:57; Status DC Trazodone HCl (Desyrel) 50 mg DAILY@1400 PO Last administered on 04/05/17 13: 56; Start 04/05/17 at 14:00; Stop 04/06/17 at 11:15; Status DC Lactobacillus Rhamnosus (Culturelle) 1 cap BID PO Last administered on 19:34; Start 04/05/17 at 21:00 Risperidone (RisperDAL) 0.25 mg BID PO Last administered on 04/08/17 19:35; Start 04/05/17 at 21:00 Clozapine (Clozaril) 50 mg HS PO Last administered on 04/08/17 19:34; Start 04/05/17 at 21:00 Trazodone HCl (Desyrel) 75 mg DAILY16 PO ; Start 04/06/17 at 16:00; Stop 04/06 at 16:00; Status DC Trazodone HCl (Desyrel) 50 mg DAILY PO Last administered on 04/06/17 09:53; Start 04/06/17 at 09:00; Stop 04/06/17 at 11:15; Status DC Active Scripts Active Reported Atorvastatin Calcium 40 Mg Tablet 40 Mg PO QHS Naproxen 500 Mg Tablet 500 Mg PO BID Lorazepam 0.5 Mg Tablet 0.5 Mg PO PRN Q4HRS PRN Seroquel (Quetiapine Fumarate) 25 Mg Tablet 25 Mg PO BID Zoloft (Sertraline Hcl) 100 Mg Tablet 100 Mg PO DAILY Levothyroxine Sodium 112 Mcg Tablet 112 Mcg PO DAILYAC Olanzapine 5 Mg Tablet 5 Mg PO HS Alprazolam 0.5 Mg Tablet 0.5 Mg PO BID I have reviewed the current psychotropics carefully including drug interactions. Risk benefit ratio favors no change other than as noted in my dictated progress note. Diagnosis: Problems: (1) Anxiety disorder (2) Bipolar 1 disorder, mixed, moderate (3) Dementia in Alzheimer's disease with delusions (4) Dementia in Alzheimer's disease with depression (5) Dementia, vascular, with depression (6) Dementia, vascular, with delusions (7) Impulse control disorder ELEANOR BILLS MD Apr 08, 2017 21:21
[2017-04-09] MEDS: LEVOTHYROXINE 112 MCG TABLET PO SCH (06:07)
[2017-04-09 06:21] VITALS: BP 95/57
[2017-04-09] MEDS: DOCUSATE SODIUM 100 MG CAPSULE PO SCH ×2 (08:04→09:00)
[2017-04-09] MEDS: POLYETHYLENE GLYCOL 3350 17 GM PACKET. PO SCH ×2 (08:04→09:00)
[2017-04-09] MEDS: risperiDONE 0.25 MG TABLET. PO SCH ×2 (08:04→09:00)
[2017-04-09] MEDS: NAPROXEN 500 MG TABLET PO SCH ×2 (08:05→11:32)
[2017-04-09] MEDS: LACTOBACILLUS RHAMNOSUS GG 1 CAPSULE. PO SCH ×2 (08:05→09:00)
[2017-04-09] MEDS: MAGNESIUM OXIDE 400 MG TABLET PO SCH ×2 (08:05→09:00)
[2017-04-09] MEDS: DIVALPROEX 125 MG CAP.SPRINK PO SCH ×2 (08:06→09:00)
[2017-04-09] MEDS: ENOXAPARIN 40 MG/0.4 ML DISP.SYRIN. SQ SCH (08:06)
[2017-04-09] MEDS ORDERED: IV NORMAL SALINE 1,000ML 1,000 ML IV ONE (11:15)
[2017-04-09 11:20] LABS: BASO % 0 % (0-3); EOS % 0 % (0-3); HEMATOCRIT 41.2 % (36.0-47.0); HEMOGLOBIN 13.8 g/dL (12.0-15.5); LYMPH # 0.5 x10^3/uL (1.0-4.8); LYMPH % 3 % (24-48); MEAN CORPUSCULAR HEMOGLOBIN 31 pg (25-35); MEAN CORPUSCULAR HGB CONC 34 g/dL (31-37); MEAN CORPUSCULAR VOLUME 91 fL (79-100); MONO # 1.8 x10^3/uL (0.0-1.1); MONO % 11 % (0-9); NEUT # 13.4 x10^3uL (1.8-7.7); NEUT % 86 % (31-73); PLATELET COUNT 205 x10^3/uL (140-400); RED BLOOD COUNT 4.53 x10^6/uL (3.50-5.40); RED CELL DISTRIBUTION WIDTH 15.5 % (11.5-14.5); WHITE BLOOD COUNT 15.6 x10^3/uL (4.0-11.0)
[2017-04-09 11:26] LABS: ALBUMIN 2.7 g/dL (3.4-5.0); ALBUMIN/GLOBULIN RATIO 0.8 (1.0-1.7); CALCIUM 9.2 mg/dL (8.5-10.1); CREATININE 0.8 mg/dL (0.6-1.0); GFR 71.5; POTASSIUM 3.7 mmol/L (3.5-5.1); TOTAL BILIRUBIN 0.3 mg/dL (0.2-1.0); TOTAL PROTEIN 6.2 g/dL (6.4-8.2)
[2017-04-09 11:32] LABS: MAGNESIUM 2.1 mg/dL (1.8-2.4)
[2017-04-09] MEDS ORDERED: ACET325T9 PO (11:40)
[2017-04-09] MEDS ORDERED: CHOL500016 PO (11:40)
[2017-04-09] MEDS ORDERED: DOCU100C28 PO (11:42)
[2017-04-09] MEDS ORDERED: ENOX40DI SQ (11:43)
[2017-04-09] MEDS ORDERED: CLOZ25TA PO (11:46)
[2017-04-09] MEDS ORDERED: LACT1CAP21 PO (11:46)
[2017-04-09] MEDS ORDERED: FLUV100T2 PO (11:47)
[2017-04-09 12:03] LABS: BGAS PH 7.5 (7.35-7.45)
[2017-04-09 12:07] LABS: BACTERIA,URINE MANY /HPF (0-FEW); BILIRUBIN,URINE NEG (NEG); CLARITY,URINE CLOUDY; COLOR,URINE YELLOW; GLUCOSE,URINE NEG (NEG); NITRITE,URINE NEG (NEG); SQUAMOUS EPITHELIAL CELL,UR FEW /LPF; UROBILINOGEN,URINE 0.2 mg/dL (0.2 mg/dL); WBC,URINE >40 /HPF (0-4)
--- NOTE | 2017-04-09 13:14 | RAD ---
AP PORTABLE CHEST Clinical Indication: hypoxia. Comparison: AP chest, prior day. Findings: Atherosclerotic aortic arch. Cardiac size normal. Left basilar retrocardiac opacity is unchanged. Interval development of right basilar airspace disease and peribronchial thickening. There is no pneumothorax. No pleural effusion is appreciated. There is no acute bone abnormality. IMPRESSION: 1. New right basilar airspace disease and peribronchial thickening. 2. Left basilar retrocardiac airspace disease is unchanged.
--- NOTE | 2017-04-09 19:46 | PN ---
DATE: 04/07/2017 This is a late entry 04/07, covers elements not covered in my initial note. SUBJECTIVE: The patient continues to yell, somewhat loud, slept through lunch. REVIEW OF SYSTEMS: No CV, , pulmonary, eye system symptoms on review. Gait unsteady, in Broda chair. MENTAL STATUS EXAM: Oriented to herself. Insight, judgment, recent and remote memory, attention, concentration, fund of knowledge poor, consistent with her diagnosis mentioned in my initial note. PLAN: No change from initial note on psychotropics. MAN Aden BILLS MD DR: JAIME/meli JOB#: [id number] / [id number]
--- NOTE | 2017-04-09 19:57 | PN ---
DATE: 04/08/2017 PSYCHIATRIC PROGRESS NOTE This late entry 04/08/2017 covers elements not covered in my initial note of 04/08/2017. SUBJECTIVE: I met with the patient in the evening of 04/08/2017. She has been somewhat gurgly per nursing report. Chest x-ray was negative. WBC is elevated, we will defer to Dr. Du. She complains of sensation of falling. She does have normal pressure hydrocephalus. We will defer to . She is a little more sedated evening of 04/08/2017 as I met with her. REVIEW OF SYSTEMS: Ambulation impaired, in Broda chair. No CV, , pulmonary, eye system symptoms on review. MENTAL STATUS EXAM: Oriented to herself. Insight, judgment, recent and remote memory, attention, concentration, fund of knowledge poor, consistent with her diagnosis mentioned in my initial note. PLAN: No changes from my initial note. We may reduce the Risperdal, gradually she is tolerating the increased Clozaril. Valproic acid level is therapeutic. Continue Depakote. ELEANOR BILLS MD DR: JAIME/meli JOB#: [id number] / [id number]
--- NOTE | 2017-04-09 21:57 | DS ---
DATE OF DISCHARGE: 04/09/2017 DISCHARGE SUMMARY/PSYCHIATRIC PROGRESS NOTE REASON FOR ADMISSION: Please refer to the admission history for details. Briefly, the patient is a 66-year-old female referred to us from [facility] by her primary care physician on account of worsening confusion, yelling, screaming being paranoid about being alone, increased agitation, crying, depressed, severely anxious with marked mood lability and prior possible diagnosis of bipolar disorder, mixed. She had failed outpatient psychiatric interventions. SIGNIFICANT FINDINGS AND CLINICAL COURSE: Following admission, the patient was seen daily individually by myself, followed medically per Dr. uD/Dr Merino. The patient had an extremely complicated course during this hospitalization, which was extremely prolonged since patient's marked mood lability, yelling uncontrollable behaviors, disruptive behaviors responded minimally to all interventions including psychotropics which we initiated and no penitentiary placement was able to accept her until these behaviors stabilized. Nevertheless, after a several changes in a very careful and thoughtful review of her psychotropics, at the end, she seemed to be doing a little better on a combination of Ativan p.r.n., Risperdal 0.25 mg b.i.d. with a plan to taper and stop the Risperdal since she had been started on Clozaril for marked psychotic symptoms and had been increased to 50 mg at bedtime. The patient is also extremely obsessive, ruminative resulting in the worsening yelling and she was on Luvox 200 mg at bedtime, trazodone p.r.n., Vistaril p.r.n., Depakote Sprinkles 500 mg b.i.d., Ativan p.r.n. I spent an inordinate amount of time discussing with nursing staff and social service staff, were seeing the patient individually daily during this hospitalization and the ultimate results with respect to her marked agitation, mood lability, yelling, was rather limited. On 04/09/2017, chest x-ray was negative. She was somewhat ___, had some leukocytosis. She does have a history of normal pressure hydrocephalus as well. She was medically compromised on 04/09/2017. She was transferred to the ICU per Dr. Du and all psychotropics were discontinued. I had wanted to leave her on the Luvox and Clozaril, but fully understood the concerns, expressed from a medical standpoint and ICU nurses conferred with me and we discontinued all psychotropics, and we will have to be reinstated once she is medically stable. Ambulation impaired, in Broda chair. No CV, , pulmonary, eye, ENT system symptoms on review. MENTAL STATUS EXAM: Oriented to herself. Insight, judgment, recent and remote memory, attention, concentration, fund of knowledge poor, consistent with her diagnosis. FINAL DIAGNOSES: Major neurocognitive disorder, Alzheimer, vascular with depression, delusion, behavioral disturbance; bipolar 1 disorder, mixed with psychotic features; anxiety disorder, unspecified; impulse control disorder, unspecified. The patient was medically compromised prior to transition to the ICU. Other medical diagnoses unchanged from admission including malnutrition, hypothyroidism, hyperlipidemia, muscle weakness, normal pressure hydrocephalus, polyosteoarthritis. DISCHARGE MEDICATIONS: All psychotropics were discontinued prior to discharge. I would be happy to consult on the patient in the ICU if requested and we consider having her back on our unit when she is medically stable, unless she can be transferred straight from the ICU to a lower level of care. Time for discharge day management greater than 30 minutes. ELEANOR BILLS MD DR: JAIME/meli JOB#: [id number] / [id number]
--- NOTE | 2017-04-09 22:26 | PN ---
DATE: PROGRESS/TRANSFER NOTE REASON FOR VISIT: Hypoxia. HISTORY OF PRESENT ILLNESS: This is a 66-year-old female who has been on the [facility] since 02/01. She has severe dementia with delusions, depression, also vascular dementia, anxiety, bipolar 1 disorder and impulse control disorder. It has been virtually impossible to control any of her yelling, which is mostly continuous except when she is sleeping. She has had numerous medication changes in the last few days, but also had some mix up of her nights and days, being up most of the night and then sleeping 10-12 hours during the day. Staff has noticed that she has become weaker and not eating or drinking in the last few days. This morning she was found to be hypoxic with sats below 90 and I was called to see her. OBJECTIVE: VITAL SIGNS: Temperature is 99.2, blood pressure was 145/70, pulse was 76, respirations 24, sats were around 85% up to 10 liters. GENERAL: Color is pale. HEENT: Tongue is very dry. NECK: No nuchal rigidity. LUNGS: With some crackles in the right base. CARDIOVASCULAR: Regular rhythm and rate. ABDOMEN: Soft, nontender. EXTREMITIES: Without edema. She has bilateral footdrop. Alexandre catheter was placed, draining concentrated urine of only 30 mL. Blood gas was done, indicating hypoxemia and respiratory alkalosis. Chemistry hypernatremia 147, chloride 110, BUN is 28, creatinine is 0.8, BUN and creatinine ratio 35. Her BNP 1764. Lactic acid was 2. Albumin 2.7. Urinalysis positive ketones, greater than 40 white cells, moderate leukocyte esterase, negative nitrites. Mental status is very weak, hoarse and stating "I am going to , I am going to ." ASSESSMENT: 1. Dehydration. 2. Hypernatremia. 3. Urinary tract infection. 4. Acute hypoxemic respiratory alkalosis. Chest x-ray pending. PLAN: IV fluids, ceftriaxone. Hold psych meds. KAE RODRIGUEZ DO DR: BONI/meli JOB#: [id number] / [id number]
--- NOTE | 2017-04-10 04:52 | PN ---
DATE: 04/06/2017 This is a late entry 04/06, covers elements not covered in my initial note of 04/06. SUBJECTIVE: The patient was staffed at a treatment team meeting in the morning, seen individually in the evening, slept 5 hours. Appetite is poor. BUN 31, increasing to 35. REVIEW OF SYSTEMS: Ambulation impaired. No CV, , pulmonary, eye, ENT system symptoms on review. Reliability poor. MENTAL STATUS EXAM: Oriented to herself. Insight, judgment, recent and remote memory, attention, concentration, fund of knowledge poor, consistent with her diagnosis mentioned in my initial note. PLAN: Stop all daytime trazodone. Discussed with Dr. Du as well. Continue Rest unchanged from initial note. Adjust further as clinically indicated. Clozaril was increased. MAN Aden BILLS MD DR: JAIME/meli JOB#: [id number] / [id number]
== END 2017-04-09 12:18 | disposition short-term general hospital (02) | DRG 56 ==
LOC: ER 18:45 → GEROPSY 21:25
PROVIDERS: ADMIT Psychiatry & Neurology Psychiatry; ATTEND Psychiatry & Neurology Psychiatry
DX: G30.9 Alzheimer's disease, unspecified (principal); G93.40 Encephalopathy, unspecified; E46 Unspecified protein-calorie malnutrition; E87.3 Alkalosis; E87.0 Hyperosmolality and hypernatremia; R13.10 Dysphagia, unspecified; R53.2 Functional quadriplegia; F02.81 Dementia in other diseases classified elsewhere, unspecified severity, with behavioral disturbance; Z68.1 Body mass index [BMI] 19.9 or less, adult; G91.2 (Idiopathic) normal pressure hydrocephalus; J98.11 Atelectasis; N39.0 Urinary tract infection, site not specified; F01.51 Vascular dementia, unspecified severity, with behavioral disturbance; F31.64 Bipolar disorder, current episode mixed, severe, with psychotic features; D64.9 Anemia, unspecified; E03.9 Hypothyroidism, unspecified; E78.5 Hyperlipidemia, unspecified; E86.0 Dehydration; F41.9 Anxiety disorder, unspecified; F42.9 Obsessive-compulsive disorder, unspecified; F63.9 Impulse disorder, unspecified; G47.00 Insomnia, unspecified; I51.7 Cardiomegaly; K59.00 Constipation, unspecified; M15.9 Polyosteoarthritis, unspecified; R09.02 Hypoxemia; Z66 Do not resuscitate; Z96.652 Presence of left artificial knee joint; Z79.899 Other long term (current) drug therapy; Z87.891 Personal history of nicotine dependence; Z98.41 Cataract extraction status, right eye; Z98.42 Cataract extraction status, left eye; Z87.440 Personal history of urinary (tract) infections; Z88.8 Allergy status to other drugs, medicaments and biological substances; Z90.49 Acquired absence of other specified parts of digestive tract
CPT/HCPCS: 36415; 70450; 71010; 80053; 80061; 80156; 80164; 80178; 81001; 82306; 82553; 82607; 82803; 83036; 83540; 83550; 83605; 83735; 83880; 84436; 84443; 84480; 85007; 85025; 85379; 86592; 86593; 87040; 87086; 87186; 90686; 92526; 93005; 96372; J0696; J1650; Q0177; 92610; 97110; 97116; 97530; 97535; 99285-25

== ENCOUNTER 2017-04-09 12:00 | Inpatient (IN) | payer MEDICARE, BC, OTHER ==
[~2017-04-09] VITALS: Ht 154.9 cm; Wt 46.8 kg
[2017-04-09] VITALS (13 sets, daily range): BP systolic 90–115; BP diastolic 45–71
[~2017-04-09 12:00] MED LIST: ACET325T9 PO; ALPR0.5T6 PO; ATOR40TA59 PO; CHOL500016 PO; CLOZ25TA PO; DOCU100C28 PO; ENOX40DI SQ; FLUV100T2 PO; LACT1CAP21 PO; LEVO112T4 PO; LORA0.5T PO; NAPR500T4 PO; OLAN5TAB9 PO; QUET25TA5 PO; SERT100T PO
[2017-04-09] MEDS: IV DEXTROSE 5% 1,000 ML IV SCH ×2 (12:30→22:48)
[2017-04-09] MEDS ORDERED: AZITHROMYCIN 500 MG in IV NORMAL SALINE 250ML 250 ML IV SCH (14:00)
[2017-04-09] MEDS ORDERED: 0.9 % SODIUM CHLORIDE 10 ML DISP.SYRIN. IV PRN (14:00)
[2017-04-09] MEDS ORDERED: PIP/TAZO PER PHARMACY MC PRN (14:45)
[2017-04-09] MEDS ORDERED: methylPREDNISolone SOD SUCC PF 125 MG/2 ML VIAL. IV ONE (15:00)
--- NOTE | 2017-04-09 15:18 | HP ---
ADMIT DATE: 04/09/2017 REASON FOR ADMISSION TO ICU: Acute hypoxemic respiratory failure, fever, respiratory alkalosis, urinary tract infection. HISTORY OF PRESENT ILLNESS: This is a 66-year-old female who was transferred down from the [facility] because this morning she was found to be hypoxic, weak and in general poor condition. Her sats were below 90 and she had a very weak cry, yelling I am going to , I am going to . She has been on the [facility] since 02/01/2017. She came from [facility] and [facility] where she had been yelling, screaming and being paranoid, agitated and crying and severely depressed. While on the [facility], she has continued to yell out and cry and scream in spite of numerous pharmaceutical attempts to control this behavior. She either is overly sedated or extremely agitated. She does not sleep well at night. She has had some new medications started were Clozaril, Risperdal, and Depakote in mid March. Luvox was started on 03/24/2017, Remeron on 03/14/2017. She also gets p.r.n. trazodone and hydroxyzine. She was on hydroxyzine during the day and this made her way oversedated. She has had 72 doses of Ativan since her admission and 50 doses of trazodone p.r.n. I have seen her multiple times upstairs, but she continues to cry out and stated "I want to go home, I want to go home, I want to go home." Her physical, she is actually functionally a quadriplegic and that she can do almost nothing for herself. PAST MEDICAL HISTORY: Hyperlipidemia, hypothyroidism, malnutrition, weakness, dementia, bipolar disorder, anxiety and depression and asthma. PAST SURGICAL HISTORY: Bilateral cataracts, tonsillectomy, appendectomy, left total knee arthroplasty. ALLERGIES: She is allergic to ADHESIVE TAPE. MEDICATIONS: Reviewed and are available on the JUL. As stated, she has been on numerous antipsychotics as well as anxiolytics, all of which help very little with her yelling and anxious behavior. FAMILY HISTORY: Unknown. SOCIAL HISTORY: She is a . She resides at [facility]. She has 1 daughter. She used to smoke. She quit more than 10 years ago. She used to work for an insurance company. REVIEW OF SYSTEMS: All she has said is "I am going to , I am going to , I don't feel well." OBJECTIVE: VITAL SIGNS: Temperature is 101.5 axillary, pulse 92, respirations 25, blood pressure 101/51, pulse ox is 95% on 10 liters. GENERAL: The patient's color is pale. She is still alert in spite of her hypoxemia. She is trying to cry out in her normal fashion. HEENT: Her tongue is very dry. LUNGS: With some crackles in the right base. CARDIOVASCULAR: Mildly increase in rate, regular rhythm. ABDOMEN: Soft, nontender. She was incontinent. EXTREMITIES: With bilateral foot drop, poor muscle tone. She also is making some twitching movements, which are not new. LABORATORY DATA: White blood cell count is 15.6, which is increased, neutrophils 86, bands are 11. Urinalysis: Greater than 40 white cells, moderate leukocyte esterase, specific gravity 1.020. ABG shows a pH of 7.50, pCO2 of 33 and pO2 of 57. Valproic acid level on 04/05/2017 was 54. IMAGING STUDIES: Chest x-ray shows new right basilar disease and peribronchial thickening, retrocardiac airspace disease. I do not know the significance of that. There is an interval development of right basilar airspace disease, peribronchial thickening. Lactic acid was normal. ASSESSMENT: 1. Acute febrile illness, suspect aspiration pneumonia. 2. Dehydration. 3. Urinary tract infection. 4. Acute hypoxic respiratory alkalosis. 5. Severe dementia. 6. Severe debilitation. 7. Functional quadriplegia. PLAN: The patient was moved to the ICU from [facility]. We will start her on ceftriaxone breathing treatments. She has a Alexandre catheter. She is a DNR. Also niece just came and stated the patient has asthma. We will try to make her as comfortable as possible and we will hold antipsychotic medications as long as we can. KAE RODRIGUEZ DO DR: BONI/meli JOB#: [id number] / [id number]
[2017-04-09] MEDS ORDERED: VANCOMYCIN 1.25 GM in IV NORMAL SALINE 250ML 250 ML IV ONE (15:30)
[2017-04-09] MEDS: IPRATRPIUM/ALBUTEROL 0.5/2.5MG 3 ML NEBU. NEB SCH ×2 (15:33→20:14)
[2017-04-09] MEDS ORDERED: ACETAMINOPHEN 650 MG SUPP.RECT. PR PRN (16:00)
[2017-04-09] MEDS: VANCOMYCIN PER PHARMACY MC PRN (16:05)
[2017-04-09] MEDS: PIPERACILLIN/TAZOBACTAM 3.375 GM in IV NORMAL SALINE 50ML 50 ML IV SCH ×2 (17:00→22:49)
[2017-04-09] MEDS: LACTOBACILLUS RHAMNOSUS GG 1 CAPSULE. PO SCH (22:50)
[2017-04-10] VITALS (22 sets, daily range): BP systolic 84–179; BP diastolic 42–88
[2017-04-10] MEDS: PIPERACILLIN/TAZOBACTAM 3.375 GM in IV NORMAL SALINE 50ML 50 ML IV SCH ×4 (05:05→23:21)
[2017-04-10] MEDS: IV DEXTROSE 5% 1,000 ML IV SCH ×4 (05:52→21:47)
[2017-04-10] MEDS: IPRATRPIUM/ALBUTEROL 0.5/2.5MG 3 ML NEBU. NEB SCH ×3 (05:54→22:01)
[2017-04-10 06:51] LABS: BASO % 0 % (0-3); EOS % 0 % (0-3); HEMATOCRIT 39.7 % (36.0-47.0); HEMOGLOBIN 13.2 g/dL (12.0-15.5); LYMPH # 1.2 x10^3/uL (1.0-4.8); LYMPH % 6 % (24-48); MEAN CORPUSCULAR HEMOGLOBIN 31 pg (25-35); MEAN CORPUSCULAR HGB CONC 33 g/dL (31-37); MEAN CORPUSCULAR VOLUME 92 fL (79-100); MONO # 1.5 x10^3/uL (0.0-1.1); MONO % 8 % (0-9); NEUT # 17.2 x10^3uL (1.8-7.7); NEUT % 86 % (31-73); PLATELET COUNT 198 x10^3/uL (140-400); RED BLOOD COUNT 4.31 x10^6/uL (3.50-5.40); RED CELL DISTRIBUTION WIDTH 14.9 % (11.5-14.5)
[2017-04-10 06:59] LABS: INFLUENZA A PATIENT NEGATIVE (NEGATIVE); INFLUENZA B PATIENT NEGATIVE (NEGATIVE)
[2017-04-10 07:06] LABS: ALBUMIN 2.3 g/dL (3.4-5.0); ALBUMIN/GLOBULIN RATIO 0.6 (1.0-1.7); CALCIUM 8.7 mg/dL (8.5-10.1); CREATININE 0.9 mg/dL (0.6-1.0); GFR 62.5; MAGNESIUM 2.1 mg/dL (1.8-2.4); POTASSIUM 3.6 mmol/L (3.5-5.1); TOTAL BILIRUBIN 0.2 mg/dL (0.2-1.0); TOTAL PROTEIN 6.1 g/dL (6.4-8.2)
[2017-04-10 07:42] LABS: % BANDS 13 % (0-9); % LYMPHS 11 % (24-48); % METAS 3 % (0-0); % MONOS 10 % (0-10); % SEGS 62 % (35-66); NUCLEATED RBC 1; PLT ESTIMATE ADEQUATE (ADEQUATE)
[2017-04-10] MEDS: LACTOBACILLUS RHAMNOSUS GG 1 CAPSULE. PO SCH ×2 (08:36→21:46)
[2017-04-10] MEDS: OLANZapine 2.5 MG TABLET PO PRN ×2 (15:49→21:46)
[2017-04-10] MEDS: VANCOMYCIN 750 MG in IV NORMAL SALINE 250ML 250 ML IV SCH (15:50)
[2017-04-11] VITALS (18 sets, daily range): BP systolic 84–165; BP diastolic 36–84
--- NOTE | 2017-04-11 00:40 | PN ---
DATE: 04/10/2017 SUBJECTIVE: The patient was transferred from [facility] yesterday. She was found to be extremely hypoxic, dehydrated, febrile and was found to have urinary tract infection. She was on 100% nonrebreather yesterday. She was started on IV fluid as well as IV antibiotic in the form of vancomycin as well as Zosyn. When I saw her today, she continued to be yelling, repeating her words; however, she was maintaining her oxygen at 96% on room air. OBJECTIVE: GENERAL: When I examined her, she looked well and was clearly in no apparent respiratory distress, slightly pale, but no jaundice, cyanosis or thyromegaly. No jugular venous distension. No limb edema. VITAL SIGNS: Her heart rate was 94, blood pressure 128/63, temperature was 97, respiratory rate was 16 and oxygen saturation was 96% on room air. HEAD, EYES, EARS, NOSE AND THROAT: Showed normocephalic, atraumatic. NECK: Supple. HEART: Showed normal first and second heart sounds with no gallop, rub or murmur. CHEST: Clear to auscultation. No crepitation or rhonchi. ABDOMEN: Distended, soft, nontender. No guarding or rigidity. No organomegaly. Hernial orifice intact. Bowel sounds normal. NEUROLOGIC: She was demented, very restless, agitated, constantly yelling. All her cranial nerves are intact. She moves upper extremities to much good extent than lower extremities. She is mostly bedbound and chair bound. Her intake over the last 24 hours was 680, output was 475. LABORATORY DATA: Showed that her white cell count was 20,000, hemoglobin 13.2, hematocrit 40, MCV 92 and platelet count of 198,000 with manual differential showed 86% polymorphs, 6% lymphocytes, 8% monocytes. Chemistry showed a serum sodium 140, potassium 3.6, chloride 105, bicarbonate 27, anion gap of 6, BUN 29, creatinine 0.9, estimated GFR was 62 mL per minute. Her glucose 145, calcium was 8.7, magnesium 2.1. Total bilirubin, AST, ALT, alkaline phosphatase were normal. Total protein was 6.1. Albumin 2.3. Her nasal screen for MRSA by PCR was positive and her influenza A and B were negative. Her chest x-ray done yesterday showed that she has new right basilar airspace disease and peribronchial thickening in the left basilar, retrocardiac airspace disease, unchanged. Her urinalysis showed the urine was yellow, cloudy with a pH of 7, specific gravity of 1.020. There was large amount of protein, small amount of glucose, moderate amount of blood, moderate amount of leukocyte esterase with 3-5 rbc's, more than 40 wbc's, large amount of bacteria. ASSESSMENT: 1. Acute hypoxic respiratory failure. 2. Aspiration pneumonia. 3. Dehydration. 4. Urinary tract infection. 5. Dementia. 6. Debility and functional quadriplegia. PLAN: Continue with IV fluid, continue with IV antibiotic. Her urine culture has grown enterococcus species greater than 100,000 colony forming units per mL. The identification and sensitivity are still pending at the time of this dictation. My plan is to continue with IV fluid, continue with antibiotics. Await the result of the culture and sensitivity and adjust antibiotics accordingly. TATIANNA COLE MD DR: JUVE/meli JOB#: [id number] / [id number]
[2017-04-11] MEDS: PIPERACILLIN/TAZOBACTAM 3.375 GM in IV NORMAL SALINE 50ML 50 ML IV SCH ×2 (05:22→12:32)
[2017-04-11] MEDS: IV DEXTROSE 5% 1,000 ML IV SCH (05:26)
[2017-04-11] MEDS: OLANZapine 2.5 MG TABLET PO PRN ×3 (05:27→21:29)
[2017-04-11] MEDS: IPRATRPIUM/ALBUTEROL 0.5/2.5MG 3 ML NEBU. NEB SCH ×2 (05:57→09:11)
[2017-04-11 06:17] LABS: HEMATOCRIT 37.3 % (36.0-47.0); HEMOGLOBIN 12.5 g/dL (12.0-15.5); RED BLOOD COUNT 4.11 x10^6/uL (3.50-5.40); RED CELL DISTRIBUTION WIDTH 14.9 % (11.5-14.5); WHITE BLOOD COUNT 26.3 x10^3/uL (4.0-11.0)
[2017-04-11 06:25] LABS: ALBUMIN 2.2 g/dL (3.4-5.0); ALBUMIN/GLOBULIN RATIO 0.6 (1.0-1.7); CALCIUM 8.4 mg/dL (8.5-10.1); CREATININE 0.6 mg/dL (0.6-1.0); GFR 99.7; TOTAL BILIRUBIN 0.2 mg/dL (0.2-1.0); TOTAL PROTEIN 5.6 g/dL (6.4-8.2)
[2017-04-11 06:27] LABS: POTASSIUM 2.9 mmol/L (3.5-5.1)
[2017-04-11] MEDS ORDERED: POTASSIUM CHLORIDE 20 MEQ TABLET.ER. PO ONE ×3 (07:00→11:00)
[2017-04-11] MEDS ORDERED: POTASSIUM CL 20MEQ D5-0.45NACL 1,000 ML IV SCH (07:00)
[2017-04-11] MEDS: cloZAPine 25 MG TABLET PO SCH (08:07)
[2017-04-11] MEDS: LACTOBACILLUS RHAMNOSUS GG 1 CAPSULE. PO SCH (08:08)
[2017-04-11 14:54] LABS: VANC TR 5.2 mcg/mL (10.0-20.0)
[2017-04-11 14:56] LABS: ALBUMIN 2.3 g/dL (3.4-5.0); ALBUMIN/GLOBULIN RATIO 0.6 (1.0-1.7); CALCIUM 8.6 mg/dL (8.5-10.1); CREATININE 0.7 mg/dL (0.6-1.0); GFR 83.5; POTASSIUM 4.3 mmol/L (3.5-5.1); TOTAL BILIRUBIN 0.2 mg/dL (0.2-1.0); TOTAL PROTEIN 5.9 g/dL (6.4-8.2)
[2017-04-11] MEDS: VANCOMYCIN 750 MG in IV NORMAL SALINE 250ML 250 ML IV SCH (15:25)
[2017-04-11] MEDS ORDERED: VANCOMYCIN 750 MG in IV NORMAL SALINE 250ML 250 ML IV SCH (16:00)
[2017-04-11] MEDS: VANCOMYCIN PER PHARMACY MC PRN (16:04)
[2017-04-11] MEDS ORDERED: LORazepam INTENSOL 2 MG/ML BOTTLE SL PRN (17:00)
[2017-04-11] MEDS ORDERED: MORPHINE SULFATE 20 MG/ML CONC SOLUTION. SL PRN (17:00)
--- NOTE | 2017-04-11 17:32 | PN ---
DATE: 04/11/2017 SUBJECTIVE: The patient is resting, slightly propped up, sleeping comfortably. According to the nursing staff, she has been yelling the whole morning and is sleeping. She is arousable and when I questioned her, she denied any complaint. OBJECTIVE: GENERAL: When I examined her, she was pale, but no jaundice, cyanosis, or thyromegaly. No jugular distention. No limb edema. VITAL SIGNS: Her heart rate was 62, blood pressure was 95/46, temperature was 98.3, respiratory rate 22, and oxygen saturation was 97%. HEAD, EYES, EARS, NOSE AND THROAT: Normocephalic, atraumatic. NECK: Supple. HEART: Normal first and second heart sounds. No gallop, rub or murmur. CHEST: Clear to auscultation. No crepitation or rhonchi. ABDOMEN: Distended, soft, nontender. No guarding or rigidity. No organomegaly. Hernial orifice intact. Bowel sounds normal. NEUROLOGIC: She is awake, alert. She is sleepy, but arousable. All her cranial nerves intact. She moves her extremities without difficulty. She has functional paraplegia. She is mostly bed bound. Her intake was 570, output was 650. LABORATORY DATA: Showed a white cell count 26,000, hemoglobin 12.5, hematocrit 37, MCV 91, and platelet count 254,000. Her serum sodium was 139, potassium 2.9, chloride 103, bicarbonate 26, anion gap of 10, BUN 18, creatinine 0.6, estimated GFR was 99 mL per minute. Her glucose 141, calcium was 8.4. Her total bilirubin, AST, ALT, alkaline phosphatase slightly elevated. Her total protein was 5.6, albumin was 2.2. ASSESSMENT: 1. Acute hypoxic respiratory failure, resolving. 2. Aspiration pneumonia for which she is now on antibiotic for nosocomial pneumonia. 3. Dehydration, resolving. 4. Urinary tract infection with growth of Enterococcus species. 5. Dementia. 6. Debility and functional paraplegia. She has also hypokalemia that has been replenished. PLAN: My plan is to contact the microbiology lab and find out the identification and sensitivity. We will replenish her potassium and decide on further management accordingly. TATIANNA COLE MD DR: JUVE/meli JOB#: [id number] / [id number]
[2017-04-12 06:23] LABS: BASO # 0.1 x10^3/uL (0.0-0.2); BASO % 0 % (0-3); EOS # 0.1 x10^3/uL (0.0-0.7); EOS % 1 % (0-3); HEMOGLOBIN 11.6 g/dL (12.0-15.5); LYMPH # 2.3 x10^3/uL (1.0-4.8); LYMPH % 13 % (24-48); MEAN CORPUSCULAR HEMOGLOBIN 30 pg (25-35); MEAN CORPUSCULAR HGB CONC 33 g/dL (31-37); MEAN CORPUSCULAR VOLUME 91 fL (79-100); MONO # 2.4 x10^3/uL (0.0-1.1); MONO % 14 % (0-9); NEUT # 12.4 x10^3uL (1.8-7.7); NEUT % 71 % (31-73); PLATELET COUNT 290 x10^3/uL (140-400); RED BLOOD COUNT 3.83 x10^6/uL (3.50-5.40); RED CELL DISTRIBUTION WIDTH 15.1 % (11.5-14.5); WHITE BLOOD COUNT 17.4 x10^3/uL (4.0-11.0)
[2017-04-12 06:26] VITALS: BP 111/51
[2017-04-12 06:32] LABS: CALCIUM 8.2 mg/dL (8.5-10.1); CREATININE 0.6 mg/dL (0.6-1.0); GFR 99.7; POTASSIUM 4.3 mmol/L (3.5-5.1)
[2017-04-12 10:16] VITALS: BP 138/78
[2017-04-12] MEDS: cloZAPine 25 MG TABLET PO SCH (12:28)
[2017-04-12] MEDS: OLANZapine 2.5 MG TABLET PO PRN (14:01)
--- NOTE | 2017-04-12 15:26 | DS ---
DATE OF DISCHARGE: 04/12/2017 HOSPITAL COURSE: The patient is a 66-year-old female patient who was transferred from [facility] where she has a prolonged stay, as she was admitted there originally. She was actually admitted on 02/01/2017. The patient has been very loud, disruptive, psychotic, extremely unmanageable, dangerous behavior in the unit. Basically the patient came from [facility] by her primary care physician at [facility] on account of worsening yelling, screaming being paranoid about being alone, increasing agitation, crying spells, appearing depressed, severely anxious, extremely confused within her context of her major neurocognitive disorder, Alzheimer vascular with delusions and history of bipolar disorder mixed. The patient was transferred to ICU on 02/07/2017, on account of acute hypoxic respiratory failure, dehydration, healthcare-associated pneumonia and urinary tract infection. She was started with IV antibiotic including vancomycin and Zosyn together with IV fluid and we have had a lengthy discussion with her daughter and a decision was made. The family requested admitting her to [facility] for end of life care given her advanced dementia, pneumonia and urinary tract infection and apparently she was evaluated by [facility] and a bed became available at [facility] that is where she will be transferred today. PHYSICAL EXAMINATION: GENERAL: On examining her, she was resting slightly propped up in bed, in no apparent respiratory distress, pale, cachectic, but no jaundice, cyanosis, or thyromegaly. No jugular venous distention. No limb edema. VITAL SIGNS: Her heart rate was 92, blood pressure 138/78, temperature was 97.8, respiratory rate 22, and oxygen saturation was 92%. HEAD, EYES, EARS, NOSE AND THROAT: Normocephalic, atraumatic. NECK: Supple. HEART: Showed normal first and second heart sounds with no gallop, rub or murmur. CHEST: Clear to auscultation. No crepitation or rhonchi. ABDOMEN: Distended, soft, nontender. No guarding or rigidity. No organomegaly. Hernial orifice intact. Bowel sounds normal. NEUROLOGIC: She is demented continued to scream and yell, extremely paranoid. However, all her cranial nerves are intact. She has functional quadriplegia. She is mostly bedbound, chair bound. LABORATORY DATA: Her lab work this morning showed that her white cell count has improved down to 17,400; hemoglobin 11; hematocrit 35; MCV 91; and platelet count of 190,000. Her chemistry showed a serum sodium 144, potassium 4.3, chloride 112, bicarbonate 26, anion gap of 6, BUN 12, creatinine 0.6, estimated GFR was 99 mL per minute. Her glucose 92 and calcium was 8.2. DISCHARGE MEDICATIONS: She will be discharged to [facility]. She will continue lorazepam 1 mg sublingually every 2 hours and morphine sulfate 10 mg p.o. sublingually every 3 hours. She is also on clozapine 25 mg daily and olanzapine 2.5 mg every 4 hours, Tylenol 650 mg every 6 hours as needed. FINAL DISCHARGE DIAGNOSES: Advanced neurocognitive disorder due to Alzheimer vascular, healthcare-associated pneumonia, urinary tract infection. She has also other medical problems including hypothyroidism, hyperlipidemia, functional quadriplegia due to marked muscle weakness. TATIANNA COLE MD DR: JUVE/meli JOB#: [id number] / [id number]
== END 2017-04-12 14:38 | disposition hospice, inpatient (51) | DRG 177 ==
LOC: ICU 12:00
PROVIDERS: ADMIT Family Medicine; ATTEND Family Medicine
DX: J69.0 Pneumonitis due to inhalation of food and vomit (principal); J96.01 Acute respiratory failure with hypoxia; E87.3 Alkalosis; R53.2 Functional quadriplegia; N39.0 Urinary tract infection, site not specified; E03.9 Hypothyroidism, unspecified; E78.5 Hyperlipidemia, unspecified; E86.0 Dehydration; E87.6 Hypokalemia; F01.50 Vascular dementia, unspecified severity, without behavioral disturbance, psychotic disturbance, mood disturbance, and anxiety; F02.80 Dementia in other diseases classified elsewhere, unspecified severity, without behavioral disturbance, psychotic disturbance, mood disturbance, and anxiety; F22 Delusional disorders; G30.9 Alzheimer's disease, unspecified; F32.9 Major depressive disorder, single episode, unspecified; J45.909 Unspecified asthma, uncomplicated; Z96.652 Presence of left artificial knee joint; F41.9 Anxiety disorder, unspecified; B95.2 Enterococcus as the cause of diseases classified elsewhere; Z66 Do not resuscitate; Z87.891 Personal history of nicotine dependence; Z98.42 Cataract extraction status, left eye; Z98.41 Cataract extraction status, right eye; Z90.49 Acquired absence of other specified parts of digestive tract; Z88.8 Allergy status to other drugs, medicaments and biological substances; Z91.048 Other nonmedicinal substance allergy status; Z74.01 Bed confinement status
CPT/HCPCS: 36415; 80048; 80053; 80202; 83735; 85007; 85025; 85027; 87641; 87804; 94640; J0696; J2543; J2930; J3370; J7050; J7620